=== PATIENT | female | born 1995 | race Caucasian/White ===

== ENCOUNTER → 2018-04-16 13:07 | Outpatient (CLI) | payer MEDICAID, SELFPAY ==
[2018-04-16 15:20] LABS: Chlamydia Trachomatis by PCR POSITIVE (Negative); Neisserai gonorrhoeae by PCR Negative (Negative); Probe Check PASS; Sample Adequacy Control PASS; Specimen Processing Control PASS
== END ==
PROVIDERS: Visit Provider Nurse Practitioner Women's Health
DX: N89.8 Other specified noninflammatory disorders of vagina (principal)
CPT/HCPCS: 87070; 87205; 87491; 87591

== ENCOUNTER → 2018-05-10 12:10 | Outpatient (CLI) | payer MEDICAID, SELFPAY ==
[2018-05-10 16:10] LABS: HIV - WCH Non-Reactive (Nonreactive)
[2018-05-12 20:06] LABS: HCV Quant. RNA PCR HCV Not Detected IU/mL (.)
[2018-05-13 11:33] LABS: HSV 1 IgG < 0.91 index (0.00-0.90)
[2018-05-17 00:18] LABS: Rapid Plasmin Reagin (RPR) NONREACTIVE (NONREACTIVE)
== END ==
PROVIDERS: Visit Provider Nurse Practitioner Women's Health
DX: Z11.3 Encounter for screening for infections with a predominantly sexual mode of transmission (principal)
CPT/HCPCS: 36415; 86592; 86695; 86696; 86703; 87522

== ENCOUNTER → 2018-05-10 18:04 | Outpatient (CLI) | payer MEDICAID, SELFPAY ==
[2018-05-10 20:27] LABS: Chlamydia Trachomatis by PCR Negative (Negative); Neisserai gonorrhoeae by PCR Negative (Negative); Probe Check PASS; Sample Adequacy Control PASS; Specimen Processing Control PASS
== END ==
PROVIDERS: Visit Provider Nurse Practitioner Women's Health
DX: Z11.3 Encounter for screening for infections with a predominantly sexual mode of transmission (principal); N89.8 Other specified noninflammatory disorders of vagina
CPT/HCPCS: 36415; 86592; 86695; 86696; 86703; 87070; 87077; 87205; 87491; 87522; 87591

== ENCOUNTER → 2018-08-29 18:45 | Outpatient (CLI) | payer MEDICAID, SELFPAY ==
[2018-08-29 13:03] VITALS: BMI 25.9
[2018-08-29 20:37] LABS: Chlamydia Trachomatis by PCR Negative (Negative); Neisserai gonorrhoeae by PCR Negative (Negative); Probe Check PASS; Sample Adequacy Control PASS; Specimen Processing Control PASS
== END ==
PROVIDERS: Referring Provider Nurse Practitioner Women's Health; Visit Provider Nurse Practitioner Women's Health
DX: N89.8 Other specified noninflammatory disorders of vagina (principal)
CPT/HCPCS: 87070; 87205; 87491; 87591

== ENCOUNTER 2018-11-22 19:43 | Emergency (ER) | payer MEDICAID, SELFPAY ==
[2018-10-21 14:34] VITALS: BMI 25.9
[2018-11-22 19:44] VITALS: BP 124/66; PULSE 99; RESP 18; TEMP 36.7; O2SAT 99; BMI 26.7
[2018-11-22 20:03] VITALS: TEMP 36.7
--- NOTE | 2018-11-22 20:11 | ED.VISSUMM ---
- ER Visit Summary Date of Service: 11/22/18 Chief Complaint: Right buttock abscess History of Present Illness: The patient is a 23 F no significant past medical history. Patient states her 2-year-old daughter had an MRSA AB only. It was treated with antibiotics. She states the last 4 days she has had a right buttock pain. No she now has an abscess. Fever at home as high as 102. Has had some mild diarrhea. No nausea or vomiting. The only medication she is currently on is control pill. Physical Examination: Well-appearing young female. Vital signs are stable and afebrile. HEENT exam unremarkable. Moist weeks membranes. Neck nontender no lymphadenopathy. Lungs clear to auscultation bilaterally. Heart regular rate and rhythm no murmur. Abdomen soft and nontender. Normal bowel sounds no peritoneal signs. Remedies moves all 4. Neurovascular intact. Calves nontender without edema or cords. Back nontender. Her right upper buttock there is a 3 cm x 1 cm abscess. Tender to palpation. Red. Firm. No surrounding cellulitis. No lymphangitic streaking. No subcu air or crepitance. Test Results: Wound and MRSA culture pending. Emergency Department Course and Treatment: The abscess will be incised and drained. Let will be applied. Subcu lidocaine. She will be treated with Keflex and Bactrim for the abscess. [place] for pain. Given 2 [place] in the ER. She does have a ride home. Procedure note: Right buttock abscess. Let to the area. Subcu lidocaine about 6 cc. 1 inch horizontal incision. Expressed about 1 cc of purulent material plus a small amount of blood. Probed the wound. No large pus pocket. Packed using 2 inches of half-inch gauze. Patient tolerated procedure well. Was instructed to remove the gauze in [address] a dressing. Treatment Plan: Bactrim twice daily for 10 days. Keflex 4 times daily for 10 days. Tylenol Motrin for pain. Follow-up with a local primary care physician. Disposition: Discharge Impression: Acute buttock abscess Incision and drainage by ER This note was generated with [employer] dictation software. It may contain incorrect words, spelling, and punctuation that were not noted in review of the chart prior to signing ED Disposition - Plan for ED Patient: Disposition: Home or Assisted Living Instructions: ED Abscess IandD Prescriptions: Hydrocodone Bitart/Apap 5-325 [[place] 5MG-325MG] 1 tab PO Q4H PRN PRN 2 Days #10 tab PRN Reason: Pain Cephalexin [Keflex] 500 mg PO Q6 10 Days cap Smz/Tmp Ds [Bactrim Ds] 1 tab PO BID #20 tab Referrals: Geoffrey Bustillos MD [STAFF PHYSICIAN] - 5-7 Days Additional Instructions: Hot shower, warm compresses or soak in a bathtub. [place] for more severe pain otherwise Tylenol Motrin. Keflex 1 pill 4 times a day till gone. Bactrim 1 pill twice a day until gone. Follow-up with local primary care physician. Return if doing worse.
--- NOTE | 2018-11-22 20:14 | ED.DCSUM_ITS ---
- ER Visit Summary Date of Service: 11/22/18 Chief Complaint: Right buttock abscess History of Present Illness: The patient is a 23 F no significant past medical history. Patient states her 2-year-old daughter had an MRSA AB only. It was treated with antibiotics. She states the last 4 days she has had a right buttock pain. No she now has an abscess. Fever at home as high as 102. Has had some mild diarrhea. No nausea or vomiting. The only medication she is currently on is control pill. Physical Examination: Well-appearing young female. Vital signs are stable and afebrile. HEENT exam unremarkable. Moist weeks membranes. Neck nontender no lymphadenopathy. Lungs clear to auscultation bilaterally. Heart regular rate and rhythm no murmur. Abdomen soft and nontender. Normal bowel sounds no peritoneal signs. Remedies moves all 4. Neurovascular intact. Calves nontender without edema or cords. Back nontender. Her right upper buttock there is a 3 cm x 1 cm abscess. Tender to palpation. Red. Firm. No surrounding cellulitis. No lymphangitic streaking. No subcu air or crepitance. Test Results: Wound and MRSA culture pending. Emergency Department Course and Treatment: The abscess will be incised and drained. Let will be applied. Subcu lidocaine. She will be treated with Keflex and Bactrim for the abscess. [place] for pain. Given 2 [place] in the ER. She does have a ride home. Procedure note: Right buttock abscess. Let to the area. Subcu lidocaine about 6 cc. 1 inch horizontal incision. Expressed about 1 cc of purulent material plus a small amount of blood. Probed the wound. No large pus pocket. Packed using 2 inches of half-inch gauze. Patient tolerated procedure well. Was instructed to remove the gauze in [address] a dressing. Treatment Plan: Bactrim twice daily for 10 days. Keflex 4 times daily for 10 days. Tylenol Motrin for pain. Follow-up with a local primary care physician. Disposition: Discharge Impression: Acute buttock abscess Incision and drainage by ER This note was generated with [employer] dictation software. It may contain incorrect words, spelling, and punctuation that were not noted in review of the chart prior to signing ED Disposition - Plan for ED Patient: Disposition: Home or Assisted Living Instructions: ED Abscess IandD Prescriptions: Hydrocodone Bitart/Apap 5-325 [[place] 5MG-325MG] 1 tab PO Q4H PRN PRN 2 Days #10 tab PRN Reason: Pain Cephalexin [Keflex] 500 mg PO Q6 10 Days cap Smz/Tmp Ds [Bactrim Ds] 1 tab PO BID #20 tab Referrals: Geoffrey Bustillos MD [STAFF PHYSICIAN] - 5-7 Days Additional Instructions: Hot shower, warm compresses or soak in a bathtub. [place] for more severe pain otherwise Tylenol Motrin. Keflex 1 pill 4 times a day till gone. Bactrim 1 pill twice a day until gone. Follow-up with local primary care physician. Return if doing worse.
[2018-11-22] MEDS: HYDROcodone Bitartrate/Apap 5/325 Tablet PO (20:17)
[2018-11-22] MEDS: Smz/Tmp Ds Tablet 1 TABLET PO (20:17)
[2018-11-22] MEDS: Cephalexin 250 MG Capsule 500 MG PO (20:17)
[2018-11-22] MEDS: Lidocaine/Epi/Tetracaine 50 ML 1 APPLIC TOPICAL (20:18)
[2018-11-22 21:14] VITALS: BP 131/88; PULSE 71; RESP 16; O2SAT 96
[2018-11-22 22:36] LABS: Probe Check PASS; Staph aureus DNA By PCR POSITIVE (Negative)
[2018-11-22 22:38] LABS: M R Staph aureus DNA By PCR POSITIVE (Negative)
--- NOTE | 2018-11-23 03:14 | ED.RN ---
lab called with positive results. Pt positive for MRSA and Staph infection. Dr. Hardy made aware. Patient is on correct medication no need for follow up.
== END 2018-11-22 21:15 | disposition home or self-care (01) ==
PROVIDERS: Emergency Provider Emergency Medicine
DX: L02.31 Cutaneous abscess of buttock (principal); R19.7 Diarrhea, unspecified; Z79.3 Long term (current) use of hormonal contraceptives
CPT/HCPCS: 10060; 87070; 87077; 87186; 87205; 87640; 99284

== ENCOUNTER 2019-01-06 05:46 | Emergency (ER) | payer MEDICAID, SELFPAY ==
[2019-01-06 05:47] VITALS: BP 134/121; PULSE 107; RESP 15; TEMP 36.9; O2SAT 97; BMI 26.6
--- NOTE | 2019-01-06 05:53 | ED.VIS.GEN ---
History of Present Illness Chief Complaint: Suicidal Narrative: Stated that she is going through a divorce with her and got into an argument with him tonight. She has been sad. He was at the house with her. She did not drink alcohol or do illicit drugs. She picked up a knife and cut the inside of her left forearm. She stated she was remorseful. She is not suicidal. She stated that she reacted poorly and does not know why she did it. She has 3 kids at home with her. Tetanus is up-to-date. No other injuries. She is never done this before. She has a counselor at [facility]. She does not have an active psychiatrist but saw in the past and was on Prozac. She was on this for anxiety. She stopped it remotely on her own. She takes no medications. Current severity is moderate. Past Medical History - Allergies and Home Meds Allergies/Adverse Reactions: Allergies amoxicillin [Amoxicillin] Allergy (Verified 01/06/19 05:57) Rash Penicillins Allergy (Verified 01/06/19 05:57) Rash Primary Care Physician: Care Physician,No Primary [Primary Care Provider] - Prior records reviewed: Yes Past Medical History: - - Anxiety Surgical History: noncontributory Lives: With Family Smoking Status: Unknown if ever smoked Alcohol: None Drugs: None Review of Systems General: Denies: Chills, Fever, Sweats Eyes: Denies: Visual changes - bilaterally, Diplopia ENT: Denies: Rhinorrhea, Sore throat Cardiovascular: Denies: Chest pain, Palpitations Respiratory: Denies: Dyspnea, Cough, Dyspnea on exertion Gastrointestinal: Denies: Abdominal pain, Nausea, Vomiting, Diarrhea, Melena, Hematochezia Genitourinary: Denies: Dysuria, Hematuria, Frequency Musculoskeletal: Denies: Back pain, Extremity Pain Skin: Reports: Wounds - See HPI. Denies: Rash Neurological: Denies: Headache, Weakness, Numbness Psych: Reports: - - cut her left wrist on purpose Physical Exam General: Well nourished, Well developed, No Acute Distress Head: Normocephalic, Atraumatic Eyes: Perrl, EOMI ENT: Moist mucous membranes, No rhinorrhea Neck: Supple, Nontender Cardiovascular: Regular rate, Regular rhythm, No murmurs Respiratory: No distress, CTA bilaterally, Chest nontender Abdomen: Soft, Nontender, Nondistended, Normal bowel sounds Back: Nontender, Normal Inspection Extremities: Nontender, No edema Skin: Negative for: Normal color, No rash Neurological: Alert, Oriented x3, Cranial nerves II-XII grossly intact, Normal Strength, Normal Sensation Psychological: Tearful. Negative for: Normal affect, Normal Mood Diagnostic/Tx/Re-eval - Medical Decision Making Work unremarkable. Urine tox still pending. Mental health consulted for her self-inflicted wound. Her wound was washed with hexedine and anesthetized with 4 cc of 1% lidocaine with epinephrine. It was washed with 500 cc of saline. It was closed with 6 simple four-point 0 sutures. Bacitracin was applied and it was dressed. She will be seen by crisis. ED Disposition - Plan for ED Patient: Disposition: [facility] Diagnosis: Laceration, Deliberate self-cutting Referrals: Care Physician,No Primary [Primary Care Provider] -
[2019-01-06 06:40] LABS: Absolute Lymphocyte Count 1.56 X10^3/ul (0.83-4.51); Absolute Neutrophil Count 5.2 X10^3/uL (2.0-7.7); Basophil# 0.02 X10^3/uL; Basophil% 0.3 % (0-1); Eosinophil# 0.09 X10^3/uL; Eosinophils% 1.2 % (0-5); Hematocrit 44.7 % (37-47); Hemoglobin 14.6 g/dl (12.0-15.0); Lymphocyte # 1.56 X10^3/ul (4.0); Lymphocyte % 20.6 % (19-41); Mean Corp Hgb Conc 32.7 g/gl (32-36); Mean Corpuscular Hgb 30.5 pg (27.0-32.0); Mean Corpuscular Volume 93.3 fL (81-99); Mean Platelet Vol. 11.1 fl (6.2-12.0); Monocyte# 0.69 X10^3/uL; Monocyte% 9.1 % (0-10); Neutrophil # 5.21 X10^3/uL (2.7-7.7); Neutrophil % 68.5 % (47-70); Platelet Count 270 K/mm3 (150-450); RBC Distribution Width CV 13.6 % (11.6-14.6); RBC Distribution Width SD 44.9 fl (35.1-43.9); Red Blood Count 4.79 M/mm3 (4.2-5.4); White Blood Count 7.6 K/mm3 (4.4-11.0)
[2019-01-06 06:45] LABS: Alcohol, Blood (Medical)-Serum < 3.0 mg/dL; POSITIVE COUNT NO; POSITIVE DIFFERENTIAL NO; POSITIVE MORPHOLOGY NO
[2019-01-06 06:46] LABS: Anion Gap 7 (5-15); BUN 13 mg/dL (7-18); BUN/Creat Ratio 15.4 RATIO (10-20); Chloride 105 mmol/L (98-107); Creatinine, Serum 0.84 mg/dL (0.55-1.02); EST Glomerular Filtration Rate 88 mL/min (>60); Est Glom Filt Rate - Afr Amer 107 mL/min (>60); Estimated Creatinine Clearance 101.29 ml/min; Glucose 102 mg/dL (74-106); Potassium 3.5 mmol/L (3.5-5.1); Sodium Level 139 mmol/L (136-145)
[2019-01-06 06:52] LABS: Pregnancy, Serum, hCG Quali. NEGATIVE Negative (0-9 Nonpreg)
--- NOTE | 2019-01-06 07:22 | ED.RN ---
MITCH WITH CRISIS IS AWARE THAT PT IS HERE AND NEEDS TO BE EVALUATED. SHE IS NOT SURE WHO IS [employer] TODAY BUT SHE WILL GIVE THEM REPORT AND THEY WILL CALL BEFORE COMING TO THIS FACILITY
[2019-01-06 07:50] LABS: Amphetamine Urine VISTA NEGATIVE (<1000 ng/mL); Barbiturate Urine VISTA NEGATIVE (< 200 ng/mL); Benzodiazepine Urine VISTA NEGATIVE (< 200 ng/mL); Cocaine Urine VISTA NEGATIVE (< 300 ng/mL); Ecstacy Urine VISTA NEGATIVE (< 500 ng/mL); Methadone Urine VISTA NEGATIVE (< 300 ng/mL); PCP Urine VISTA NEGATIVE (< 25 ng/mL); THC Urine VISTA POSITIVE (< 50 ng/mL); Vista UDS pH Range 6
[2019-01-06 09:23] VITALS: RESP 16
--- NOTE | 2019-01-06 09:34 | ED.RN ---
PER JOIE WITH CRISIS; DONTA SHOULD BE HERE IN ABOUT A HALF HOUR TO SEE THIS PT
[2019-01-06 12:02] VITALS: RESP 18
[2019-01-06] MEDS: Acetaminophen 500 MG Tablet 1000 MG PO (12:44)
[2019-01-06 14:55] VITALS: RESP 18
[2019-01-06 15:04] VITALS: RESP 16
[2019-01-06 16:09] VITALS: BP 113/68; PULSE 77; RESP 18; TEMP 36.9; O2SAT 97
== END 2019-01-06 16:05 ==
PROVIDERS: Emergency Provider Emergency Medicine
DX: S51.812A Laceration without foreign body of left forearm, initial encounter (principal); X78.1XXA Intentional self-harm by knife, initial encounter; Y93.9 Activity, unspecified; Y92.9 Unspecified place or not applicable; Y99.9 Unspecified external cause status; Z79.3 Long term (current) use of hormonal contraceptives; Z88.0 Allergy status to penicillin
CPT/HCPCS: 12002; 80048; 80307; 80320; 84703; 85025; 99285; G0480

== ENCOUNTER → 2019-03-21 16:17 | Outpatient (CLI) | payer MEDICAID, SELFPAY ==
[2019-03-21 15:57] VITALS: BMI 26.6
[2019-03-21 17:03] LABS: hCG Titer Quant., Serum 140 mIU/mL (1-3)
[2019-03-21 18:30] LABS: Chlamydia Trachomatis by PCR Negative (Negative); Neisserai gonorrhoeae by PCR Negative (Negative); Probe Check PASS; Sample Adequacy Control PASS; Specimen Processing Control PASS
== END ==
PROVIDERS: Referring Provider Nurse Practitioner Women's Health; Visit Provider Nurse Practitioner Women's Health
DX: Z34.90 Encounter for supervision of normal pregnancy, unspecified, unspecified trimester (principal); Z11.3 Encounter for screening for infections with a predominantly sexual mode of transmission; N76.0 Acute vaginitis
CPT/HCPCS: 36415; 84702; 87070; 87077; 87186; 87205; 87491; 87591

== ENCOUNTER → 2019-03-24 13:14 | Outpatient (CLI) | payer MEDICAID, SELFPAY ==
[2019-03-21 15:57] VITALS: BMI 26.6
[2019-03-24 13:59] LABS: hCG Titer Quant., Serum 85 mIU/mL (1-3)
== END ==
PROVIDERS: Referring Provider Nurse Practitioner Women's Health; Visit Provider Nurse Practitioner Women's Health
DX: N92.6 Irregular menstruation, unspecified (principal)
CPT/HCPCS: 36415; 84702

== ENCOUNTER → 2019-06-10 15:27 | Outpatient (CLI) | payer MEDICAID, SELFPAY ==
[2019-06-10 12:20] VITALS: BMI 26.6
[2019-06-10 19:57] LABS: Chlamydia Trachomatis by PCR Negative (Negative); Neisserai gonorrhoeae by PCR Negative (Negative); Probe Check PASS; Sample Adequacy Control PASS; Specimen Processing Control PASS
== END ==
PROVIDERS: Visit Provider Nurse Practitioner Women's Health
DX: N76.0 Acute vaginitis (principal)
CPT/HCPCS: 87491; 87591

== ENCOUNTER → 2019-06-11 11:38 | Outpatient (CLI) | payer MEDICAID, SELFPAY ==
[2019-06-10 12:20] VITALS: BMI 26.6
[2019-06-11 14:29] LABS: hCG Titer Quant., Serum 1318 mIU/mL (1-3)
== END ==
PROVIDERS: Referring Provider Nurse Practitioner Women's Health; Visit Provider Nurse Practitioner Women's Health
DX: O03.9 Complete or unspecified spontaneous abortion without complication (principal)
CPT/HCPCS: 36415; 84702

== ENCOUNTER 2019-06-30 04:07 | Emergency (ER) | payer MEDICAID, SELFPAY ==
[2019-06-10 12:20] VITALS: BMI 26.6
[2019-06-30 04:08] VITALS: BP 115/76; PULSE 100; RESP 16; TEMP 36.5; O2SAT 99; BMI 26.3
--- NOTE | 2019-06-30 04:14 | ED.DCSUM_ITS ---
History of Present Illness Chief Complaint: Lower Extremity Injury Informant: Patient Narrative: She injured her right foot just prior to arrival. She stated that she tripped when walking down a few steps and sprained her foot. She is having some pain in the outside of her foot. She took ibuprofen. Worse with movement and walking. No previous injury. Relieved with rest. - Past Medical History (1) Influenza A Status: Acute (2) Status: Acute (3) Anxiety Status: Chronic (4) Genital herpes Status: Chronic (5) OCD (obsessive compulsive disorder) Status: Chronic Past Medical History - Allergies and Home Meds Allergies/Adverse Reactions: Allergies amoxicillin [Amoxicillin] Allergy (Verified 06/30/19 04:12) Rash Penicillins Allergy (Verified 06/30/19 04:12) Rash Primary Care Physician: Care Physician,No Primary [Primary Care Provider] - Prior records reviewed: Yes Past Medical History: - - See problem list Surgical History: noncontributory Smoking Status: Unknown if ever smoked Alcohol: None Drugs: None Review of Systems General: Denies: Chills, Fever, Sweats Eyes: Denies: Visual changes - bilaterally, Diplopia ENT: Denies: Rhinorrhea, Sore throat Cardiovascular: Denies: Chest pain, Palpitations Respiratory: Denies: Dyspnea, Cough, Dyspnea on exertion Gastrointestinal: Denies: Abdominal pain, Nausea, Vomiting, Diarrhea, Melena, Hematochezia Genitourinary: Denies: Dysuria, Hematuria, Frequency Musculoskeletal: Reports: Extremity Pain - Pain in the right foot. Denies: Back pain Skin: Denies: Rash, Wounds Neurological: Denies: Headache, Weakness, Numbness Physical Exam Vital Signs/Narrative: Vital Signs Temp Pulse Resp BP Pulse Ox 06/30/19 04:08 97.7 F L 100 16 115/76 99 General: Well nourished, Well developed, No Acute Distress Head: Normocephalic, Atraumatic Eyes: Perr[place], EOMI ENT: Moist mucous membranes, No rhinorrhea Neck: Supple, Nontender Cardiovascular: Regular rate, Regular rhythm, No murmurs Respiratory: No distress, CTA bilaterally, Chest nontender Abdomen: Soft, Nontender, Nondistended, Normal bowel sounds Back: Nontender, Normal Inspection Extremities: No edema, Tenderness - Numbness in the right foot over the proximal third and fourth metatarsals. Mild soft tissue swelling isolated to this area. No tenderness over the fifth metatarsal base. Negative for: Nontender Skin: Normal color, No rash Neurological: Alert, Oriented x3, Cranial nerves II-XII grossly intact, Normal Strength, Normal Sensation Psychological: Normal affect, Normal Mood Diagnostic/Tx/Re-eval - Medical Decision Making Patient given ice pack. Just took ibuprofen prior to coming in. X-ray of the foot obtained. Today shows a proximal fifth metatarsal fracture nondisplaced. Patient placed in a walking boot and given crutches. She is not in a place weight on this. Given an oxycodone tablet. Patient will be given a short course of Percocet for home. She will rest and ice and follow-up with orthopedics ED Disposition - Plan for ED Patient: Disposition: [facility] Diagnosis: Fracture of fifth metatarsal bone of right foot Instructions: FRACTURE, Foot Prescriptions: Oxycodone HCl/Acetaminophen [Percocet 5/325] 1 tab PO Q6H PRN PRN 3 Days #12 tab PRN Reason: Pain Prescription Printed Referrals: Care Physician,No Primary [Primary Care Provider] - Grzegorz Pitt DO [STAFF PHYSICIAN] -
--- NOTE | 2019-06-30 04:14 | RAD_ITS ---
STUDY: X-RAY - RIGHT FOOT CLINICAL: Female, 24 years old. Pain TECHNIQUE: There view(s) of the foot. COMPARISON: None. FINDINGS: Normal talus, calcaneus, and tarsal bones. Normal visualized subtalar, talonavicular, calcaneocuboid, tarsal and tarsometatarsal articulations. There is a nondisplaced fracture of the base of the fifth metatarsal bone. Normal metatarsophalangeal joint of the great toe. Normal tibial and fibular sesamoid bones. Normal interphalangeal joint of the great toe. Normal phalanges of the great toe. Normal second through fifth metatarsophalangeal joints. Normal interphalangeal joints and phalanges of the lesser toes. The soft tissue structures are unremarkable. RAD/Foot min 3 Views IMPRESSION: Fracture of the base of the fifth metatarsal bone. Electronically Signed: Parth Morales MD at 4:31 EDT , Service support ,
[2019-06-30 04:53] VITALS: BP 115/76; PULSE 100; RESP 15; O2SAT 99
[2019-06-30] MEDS: oxyCODONE 5 MG Tablet PO (05:14)
== END 2019-06-30 05:26 | disposition home or self-care (01) ==
PROVIDERS: Emergency Provider Emergency Medicine
DX: O9A.219 Injury, poisoning and certain other consequences of external causes complicating pregnancy, unspecified trimester (principal); S92.351A Displaced fracture of fifth metatarsal bone, right foot, initial encounter for closed fracture; W10.9XXA Fall (on) (from) unspecified stairs and steps, initial encounter; Y93.01 Activity, walking, marching and hiking; Y92.9 Unspecified place or not applicable; Y99.9 Unspecified external cause status; Z3A.00 Weeks of gestation of pregnancy not specified
CPT/HCPCS: 73630; 99285

== ENCOUNTER 2019-07-06 10:51 | Emergency (ER) | payer MEDICAID, SELFPAY ==
[2019-07-06 10:53] VITALS: BP 117/55; PULSE 81; RESP 16; TEMP 36.9; O2SAT 97; BMI 24.3
--- NOTE | 2019-07-06 11:29 | RAD_ITS ---
STUDY: X-RAY - RIGHT FOOT CLINICAL: Female, 24 years old. Status post fall. History of recent fracture. TECHNIQUE: 3 view(s) of the foot. COMPARISON: 06/30/2019. FINDINGS: Normal talus, calcaneus, and tarsal bones. The foot is in cast obscuring the soft tissues and bony details. Normal visualized subtalar, talonavicular, calcaneocuboid, tarsal and tarsometatarsal articulations. There again is fracture of the base of the fifth metatarsal. There is more resorption about the fracture site. Normal metatarsophalangeal joint of the great toe. Normal tibial and fibular sesamoid bones. Normal interphalangeal joint of the great toe. Normal phalanges of the great toe. Normal second through fifth metatarsophalangeal joints. Normal interphalangeal joints and phalanges of the lesser toes. The soft tissue structures are unremarkable. RAD/Foot min 3 Views IMPRESSION: The foot is in cast obscuring the soft tissue details. Fracture of the base of the fifth metatarsal. No other definite fractures are seen. Electronically Signed: Ezra Sarmiento MD at 11:56 EDT Tel , Service support ,
[2019-07-06] MEDS: oxyCODONE 5 MG Tablet PO (11:36)
--- NOTE | 2019-07-06 12:09 | ED.VISSUMM ---
- ER Visit Summary Date of Service: 07/06/19 Chief Complaint: Right foot pain History of Present Illness: The patient is a 24 F presenting with right foot pain. Patient states she broke her foot a week ago. She is in a cast. She was using crutches going down the stairs and fell. She did not hit her head or lose consciousness. She complains of pain to the lateral aspect of her right foot. She is in the process of switching orthopedic surgeons as the initial orthopedic surgeon did not take her insurance. She denies other injuries. Physical Examination: Vitals are stable. Patient is afebrile. Alert no acute distress. HEENT exam is unremarkable. Neck is nontender Lungs are clear and equal bilaterally. Heart is regular rate and rhythm. Abdomen is soft nontender nondistended. Extremities right lower extremity cast. Normal cap refill. Skin is warm and dry. No focal neurologic deficit. Remainder of exam is unremarkable. Emergency Department Course and Treatment: She was given OxyIR x1. Right foot x-ray shows the foot is in cast obscuring the soft tissue details. Fracture of the base of the fifth metatarsal. No other definite fractures are seen. Fracture appears similar to previous. She is given short course of Percocet. Advised to follow-up with her new orthopedic surgeon. Advised return to ED for worsening complaints. Disposition: Discharge home Impression: Right fifth metatarsal fracture This note was generated with [employer] dictation software. It may contain incorrect words, spelling, and punctuation that were not noted in review of the chart prior to signing ED Disposition - Plan for ED Patient: Referrals: Care Physician,No Primary [Primary Care Provider] -
--- NOTE | 2019-07-06 12:11 | ED.DEP ---
ED Disposition - Plan for ED Patient: Instructions: FRACTURE, Foot Prescriptions: Oxycodone HCl/Acetaminophen [Percocet 5/325] 1 tablet PO Q6H PRN PRN 3 Days #12 tablet PRN Reason: Pain Referrals: Artemio Paulino DPM [STAFF PHYSICIAN] - Ridge Mai DO [STAFF PHYSICIAN] -
== END 2019-07-06 12:23 | disposition home or self-care (01) ==
LOC: ED 11:33
PROVIDERS: Emergency Provider Emergency Medicine
DX: S92.351A Displaced fracture of fifth metatarsal bone, right foot, initial encounter for closed fracture (principal); W10.9XXA Fall (on) (from) unspecified stairs and steps, initial encounter; Y93.9 Activity, unspecified; Y92.9 Unspecified place or not applicable; Y99.9 Unspecified external cause status
CPT/HCPCS: 73630; 99283

== ENCOUNTER → 2019-07-08 15:15 | Outpatient (CLI) | payer MEDICAID, SELFPAY ==
[2019-07-08 11:38] VITALS: BMI 24.3
== END ==
PROVIDERS: Referring Provider Obstetrics & Gynecology; Visit Provider Obstetrics & Gynecology
DX: R30.0 Dysuria (principal)
CPT/HCPCS: 87086; 87088; 87186

== ENCOUNTER → 2019-07-09 10:22 | Outpatient (CLI) | payer MEDICAID, SELFPAY ==
[2019-07-06 10:53] VITALS: BMI 24.3
[2019-07-08 11:38] VITALS: BMI 24.3
[2019-07-09 12:27] LABS: Absolute Neutrophil Count 3.2 X10^3/uL (2.0-7.7); Basophil# 0.02 X10^3/uL; Basophil% 0.4 % (0-1); Eosinophil# 0.12 X10^3/uL; Eosinophils% 2.2 % (0-5); Hematocrit 37.3 % (37-47); Hemoglobin 12.2 g/dL (12.0-15.0); Lymphocyte % 29.4 % (19-41); Mean Corp Hgb Conc 32.7 g/dL (32-36); Mean Corpuscular Hgb 30.7 pg (27.0-32.0); Mean Platelet Vol. 11.4 fl (6.2-12.0); Monocyte# 0.55 X10^3/uL; Monocyte% 10.1 % (0-10); NRBC Flagged by Analyzer 0 % (0-5); Neutrophil # 3.15 X10^3/uL (2.7-7.7); Neutrophil % 57.7 % (47-70); Platelet Count 240 K/mm3 (150-450); RBC Distribution Width CV 11.6 % (11.6-14.6); RBC Distribution Width SD 40.6 fl (35.1-43.9); Red Blood Count 3.97 M/mm3 (4.2-5.4); White Blood Count 5.5 K/mm3 (4.4-11.0)
[2019-07-09 12:54] LABS: AST(SGOT) 12 U/L (15-37); Alanine Aminotransfer ALT/SGPT 18 U/L (13-56); Albumin, Serum 3.8 g/dL (3.2-5.0); Alkaline Phosphatase 72 U/L (45-117); Anion Gap 7 (5-15); BUN 11 mg/dL (7-18); BUN/Creat Ratio 16.8 RATIO (10-20); Calcium,Total 8.8 mg/dL (8.5-10.1); Chloride 104 mmol/L (98-107); Creatinine, Serum 0.65 mg/dL (0.55-1.02); EST Glomerular Filtration Rate 118 mL/min (>60); Est Glom Filt Rate - Afr Amer 143 mL/min (>60); Globulin 3.8 g/dL (2.2-4.2); Glucose 77 mg/dL (74-106); Potassium 3.9 mmol/L (3.5-5.1); Protein, Total 7.6 g/dL (6.4-8.2); Sodium Level 140 mmol/L (136-145)
[2019-07-09 12:57] LABS: Vitamin D,25 Hydroxy 44.1 ng/mL (29.95-100.01)
== END ==
PROVIDERS: Visit Provider Podiatrist
DX: E55.9 Vitamin D deficiency, unspecified (principal)
CPT/HCPCS: 36415; 80053; 82306; 85025

== ENCOUNTER 2019-07-11 08:10 | Day surgery (SDC) | payer MEDICAID, SELFPAY ==
[2019-07-08 11:13] VITALS: BMI 24.3
[2019-07-08 11:38] VITALS: BMI 24.3
[2019-07-11] VITALS (10 sets, daily range): BP systolic 80–100; BP diastolic 48–70; PULSE 54–66; RESP 14–16; TEMP 36.3–37.2; O2SAT 95–100; BMI 25.0
[2019-07-11 08:30] LABS: Internal QC Validated? YES +Cl - CLEAR BKGD
[2019-07-11 08:31] LABS: Pregnancy, Urine Positive Negative
[2019-07-11] MEDS: Lactated Ringers 1,000 ML 75 ML IV ×3 (09:16→12:48)
--- NOTE | 2019-07-11 10:34 | RAD_ITS ---
STUDY: X-RAY - RIGHT FOOT CLINICAL: Female, 24 years old. Fracture TECHNIQUE: 5 intraoperative view(s) of the foot. COMPARISON: None. FINDINGS: 5 intraoperative views of the right fifth metatarsal were performed as the patient has undergone open reduction internal fixation of a fracture. Follow-up studies recommended to ensure complete osseous union. No intraoperative complication noted. RAD/Foot min 3 Views IMPRESSION: ORIF of a proximal fifth metatarsal fracture Electronically Signed: Foster Garay MD at 12:00 EDT , Service support ,
[2019-07-11] MEDS: Bupivacaine Mpf 0.5% 30 ML VIAL (11:00)
--- NOTE | 2019-07-11 11:21 | PCM.DC.POD ---
Discharge Diet: No Restrictions Discharge Activity: May Not Drive, May not drive while taking narcotic pain medications., May Not Shower - unless cast cover is in place, Use Crutches Weight Bearing Status: No weight bearing Keep extremity elevated above heart level: Right Leg Call your doctor if your incision/area has: Continuous Slow Oozing, Sudden Increased Bleeding, Increased Pain/ Swelling, Increased Redness, Foul Smelling Discharge, Swelling at the incision site Call your doctor if you observe: Fever of 101 or Higher, Numbness or Tingling, Inability to urinate, Inability to have a bowel movement, Shortness of breath, Chest pain, Prolonged hiccoughing, Increased palpitations (irregular heartbeat), Calf discomfort, Uncontrolled pain Cleanse incision/area with: Keep Dressing Clean & Dry Allergies/Adverse Reactions: Allergies amoxicillin [Amoxicillin] Allergy (Verified 07/10/19 08:38) Rash Penicillins Allergy (Verified 07/10/19 08:38) Rash Medications to take at Discharge Oxycodone HCl/Acetaminophen [Percocet 5/325] 1 tab PO Q6H PRN PRN 3 Days #12 tab 07/06/19 sulfamethoxazole 800 mg-trimethoprim 160 mg tablet 1 tab PO DAILY #6 tab 07/08/19 nitrofurantoin monohydrate/macrocrystals 100 mg capsule 1 cap PO Q12H 7 Days #14 cap 07/10/19 Primary Care Physician: Care Physician,No Primary [Primary Care Provider] - Test Results: Test results from this visit will be discussed in further detail at your follow-up appointment, if applicable. Please Follow Up With: Danielle Lopez DPM When: 1 week at [facility]. Call [phone] Proposed Discharge Date: 07/11/19
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
--- NOTE | 2019-07-11 11:47 | RAD_ITS ---
STUDY: X-RAY - RIGHT FOOT CLINICAL: Female, 24 years old. Fracture TECHNIQUE: 3 view(s) of the foot. COMPARISON: None. FINDINGS: Patient is postop from ORIF of a fifth metatarsal fracture. Threaded screw has been placed through the fracture of the base of the fifth metacarpal. Alignment the fracture site is anatomic. No plain film evidence of postoperative complication, follow-up recommended to assure complete osseous union RAD/Foot min 3 Views IMPRESSION: Status post ORIF of a fracture at the base of the fifth metatarsal. Alignment is anatomic after threaded screw placement. No postoperative complications noted Electronically Signed: Foster Garay MD at 12:45 EDT , Service support ,
[2019-07-11] MEDS: Acetaminophen 325 MG Tablet PO (13:10)
[2019-07-11] MEDS: oxyCODONE 5 MG Tablet PO (13:10)
== END 2019-07-11 13:42 | disposition home or self-care (01) ==
LOC: SDC 08:11 → AC 08:12
PROVIDERS: Anesthesiology; Referring Provider Podiatrist; Visit Provider Podiatrist
PROC: (CPT 28485; principal; 2019-07-11 09:30)
DX: S92.351A Displaced fracture of fifth metatarsal bone, right foot, initial encounter for closed fracture (principal); N39.0 Urinary tract infection, site not specified; Z79.2 Long term (current) use of antibiotics; W18.40XA Slipping, tripping and stumbling without falling, unspecified, initial encounter; Y93.01 Activity, walking, marching and hiking; Y92.89 Other specified places as the place of occurrence of the external cause; Y99.8 Other external cause status
CPT/HCPCS: 01480; 28485; 73630; 76000; 81025; C1713; J7120; J2405

== ENCOUNTER 2019-07-22 09:22 | Day surgery (SDC) | payer MEDICAID, SELFPAY ==
[2019-07-21 08:22] VITALS: BMI 25.0
[2019-07-22] VITALS (13 sets, daily range): BP systolic 96–113; BP diastolic 49–64; PULSE 50–95; RESP 16–18; TEMP 36.3–36.8; O2SAT 95–100; BMI 25.2
--- NOTE | 2019-07-22 | POC_PTH ---
PATIENT: RACHELLE JACKSON LOC: [facility] [place] U#:[id number] AGE/SX: 24/F ROOM: RE07/22/[address]: Dr. Agustina Sinclair MD : [id number] BED: DIS: 07/22/2019 SPEC #: [id number] RECD: 07/22/19 14:16 STATUS: MILAN ALONZO #: [id number] PASCUAL: 07/22/19 00:[address]: Agustina Sinclair DEPT: SURGICAL PATHOLOGY RECD BY: Wayne Ponce ENTERED: 07/22/19 14:17 SP TYPE: PROD CONC OTHR DR: No Primary Care Phys Tissues: Product of conception, NOS Procedures: Surgery Specimen Level IV HEADER OPERATION: Dilation and curettage, suction PRE-OP DIAGNOSIS: Missed TISSUE SUBMITTED: Products of conception MICROSCOPIC DIAGNOSIS Endometrium, curettage: Chorionic villi, decidualized stroma and trophoblastic cells consistent with products of conception. AM:roc 07/23/19 MICROSCOPIC DESCRIPTION Slides are reviewed. GROSS DESCRIPTION Received in fixative is one container labeled with the patient's name and designated products of conception. The specimen consists of multiple pieces of pink-red soft tissue that in aggregate measure 6 x 6 x 2 cm. tissue is not identified. Machine Rope Maker tissue is submitted in two cassettes. / SJ:roc 07/22/19 TC:5 CPT: 05512
[2019-07-22] MEDS: Lactated Ringers 1,000 ML 125 ML IV ×2 (07:00→13:08)
[2019-07-22] MEDS: Doxycycline 100 MG CAPSULE PO (10:10)
[2019-07-22 10:39] LABS: Hematocrit 33.9 % (37-47); Hemoglobin 11.4 g/dL (12.0-15.0); Mean Corp Hgb Conc 33.6 g/dL (32-36); Mean Corpuscular Hgb 30.9 pg (27.0-32.0); Mean Corpuscular Volume 91.9 fL (81-99); Mean Platelet Vol. 10.6 fl (6.2-12.0); Platelet Count 223 K/mm3 (150-450); RBC Distribution Width CV 11.6 % (11.6-14.6); RBC Distribution Width SD 39.2 fl (35.1-43.9); Red Blood Count 3.69 M/mm3 (4.2-5.4); White Blood Count 4.6 K/mm3 (4.4-11.0)
--- NOTE | 2019-07-22 12:25 | HP.PCM_ITS ---
- Problem List (1) Missed with demise before 20 completed weeks of gestation Status: Acute Comment: s/p cytotec, plan suction d and c if last dose today doesn't complete SAB History and Physical Date of Admission: 07/22/19 Intake Vital Signs 07/21/19 Body Mass Index (BMI) 25.0 07/21/19 Height 5 ft 8 in 07/21/19 Blood Pressure 126/72 H 07/21/19 Body Mass Index (BMI) 25.0 Intake Visit Reasons: Miscarriage f/u, sched possible D&C Chief Complaint: Follow Up SAB, Rescan Housing Property Manager Required: No Is patient in pain?: No Allergies amoxicillin [Amoxicillin] Allergy (Verified 07/21/19 08:21) Rash Penicillins Allergy (Verified 07/21/19 08:21) Rash Medications etonogestrel 68 mg subdermal implant 1 implant SUBDERMAL ONCE 07/15/19 [History Confirmed 07/15/19] misoprostol 200 mcg tablet 800 mcg PO .complex #4 tab 07/21/19 [Rx Confirmed 07/21/19] oxycodone-acetaminophen 5 mg-325 mg tablet 1 tab PO Q4H PRN 4 Days #20 tab 07/21/19 [Rx Confirmed 07/21/19] Is last menstrual period known: No Post menopausal: No Patient : No : No PFSH Medical History Genital herpes (Chronic) OCD (obsessive compulsive disorder) (Chronic) Anxiety (Chronic) Social History (Updated 07/21/19 @ 10:47 by Agustina Sinclair MD) Smoking Status: Former smoker alcohol intake: current details: social substance use type: does not use seatbelt use: always do you feel safe at home: Yes additional social history: Spouse Wes HPI Miscarriage f/u, sched possible D&C: Details: RACHELLE JACKSON is a 24 year old who presents for fu of miscarriage. she has barely had any bleeding despite takin ghte cytotec. she is still recovering from recent foot surgery. Female Reproductive History Menopausal Symptoms: No night sweats Pregancy History 6 Elective abortions Hx Para 3 Spontaneous abortions Hx # Term Pregnancies Ectopic pregnancies Hx # Pregnancies Multiple births # of living children Past Pregnancies Del. Date Name GA/Weeks Outcome Route Bth Weight Infant Gen Labor Lgth Anesthesia Del Locatn Provider FOB Unknown 2013 [facility] Unknown 2016 [facility] [place] Unknown 2017 [facility] Dr Goyal ROS Const Constitutional: Denies fatigue, night sweats, weight gain or weight loss ENT ENT: Reports system reviewed and no additional complaints, except as docu Cardio Card: Denies chest pain Resp Resp: Denies cough or dyspnea GI GI: Reports as per HPI; denies abdominal pain, constipation, nausea or vomiting : Denies nipple discharge, urinary frequency, urinary incontinence, urinary hesitancy, urinary urgency, vaginal discharge, vaginal dryness, vaginal odor or vaginal itching Musc Musc: Denies joint pain, back pain or muscle weakness Skin Skin/Breast: Denies hair loss, change in hair, dry skin, breast lump, breast pain, breast skin changes or nipple discharge Neuro Neuro: Reports system reviewed and no additional complaints, except as docu Psych Psych: Reports system reviewed and no additional complaints, except as docu Endo Endo: Denies cold intolerance, excessive sweating, heat intolerance or increased thirst Tom/Lymph Hematologic/Lymphatic: Denies easy bleeding, Denies easy bruising, Denies enlarged lymph nodes Exam Const General: cooperative, healthy appearing, comfortable, no acute distress, well developed Orientation: alert [facility] Head: normal to inspection, normocephalic Ears: hearing grossly normal bilaterally, external ears normal Nose: external nose normal, nares normal Face and sinus: normal facial exam Neck Neck: normal visual inspection, no lymphadenopathy Thyroid: thyroid normal Chest Chest palpation & inspection: normal inspection of the chest Resp Effort & Inspection: normal respiratory effort Auscultation: clear to auscultation bilaterally Cardio Rate: regular rate Rhythm: regular rhythm Heart Sounds: S1 normal, S2 normal GI Inspection: normal to inspection, non-distended Palpation: soft, no hepatosplenomegaly Neuro General: alert, awake, moves all extremities, no focal motor deficits Motor: muscle tone normal throughout Psych Appearance: grossly normal Mental Status: mental status grossly normal Affect: normal affect Speech and Movement: speech and movement normal Assessment & Plan Problems 1. Missed with demise before 20 completed weeks of gestation O02.1 s/p cytotec, plan suction d and c if last dose today doesn't complete SAB Plan Problem list updated and treatment plans were reviewed with the patient and relevant educational handouts given. See problem list details for specific plan information. Medications New: misoprostol (Cytotec) 800 mcg (4 x 200 mcg) PO .complex 4 tabs 1RF oxycodone-acetaminophen 5-325 mg (Percocet) 1 tab PO Q4H 4 days PRN 20 tabs 0RF O02.1 Coding Level of Care Code Off vis,est,level 4 Diagnoses Missed with demise before 20 completed weeks of gestation O02.1 UPDATE- I have seen the patient and performed any clinically relevant updates to the history and physical exam. Agustina Sinclair MD
--- NOTE | 2019-07-22 12:25 | PCM.OPRPT ---
Problem List (1) Missed with demise before 20 completed weeks of gestation Status: Acute Comment: s/p cytotec, plan suction d and c if last dose today doesn't complete SAB Report of Operation Date of Procedure: 07/22/19 Pre-Operative Diagnosis: missed ab Post-Operative Diagnosis: same Surgery/Procedure Performed:: suciton d and c Description of Surgical Findings:: 9 week missed ab Type of Anesthesia:: Local MAC Special Medications: toradol Specimen's removed: poc Drains: none Estimated Blood Loss (mL): 100 Fluids Replaced: crystalloid Description of Procedure: Patient was taken to the operating room and placed under MAC local anesthesia. She was prepped and draped in the normal sterile fashion the dorsal lithotomy position. Bladder was drained of clear urine and anterior lip of the cervix was grasped and the uterus sounded to 9 cm. Cervix was progressively dilated to allow passage of a 8 and 9 mm suction curette. Progressive passes were made removing the retained products of conception without complication. Sharp curettage confirmed complete removal of the retained products. All instruments were removed from the vagina and excellent hemostasis was noted and the patient was taken to recovery in stable condition. Grafts/Implants Used: none - Complications none - Admit VTE Documentation VTE Present on Admission: No
--- NOTE | 2019-07-22 12:28 | DCINST_ITS ---
Discharge Diet: No Restrictions Discharge Activity: Return to Normal Activity, May Shower, May Take a Tub Bath Allergies/Adverse Reactions: Allergies amoxicillin [Amoxicillin] Allergy (Verified 07/22/19 10:12) Rash Penicillins Allergy (Verified 07/22/19 10:12) Rash Medications to take at Discharge etonogestrel 68 mg subdermal implant 1 implant SUBDERMAL ONCE 07/15/19 misoprostol 200 mcg tablet 800 mcg PO .complex #4 tab 07/21/19 oxycodone-acetaminophen 5 mg-325 mg tablet 1 tab PO Q4H PRN 4 Days #20 tab 07/21/19 Primary Care Physician: Care Physician,No Primary [Primary Care Provider] - Test Results: Test results from this visit will be discussed in further detail at your follow- up appointment, if applicable. Please Follow Up With: Agustina Sinclair MD - [phone]
== END 2019-07-22 15:17 | disposition home or self-care (01) ==
LOC: SDC 09:23 → AC 09:24
PROVIDERS: Referring Provider Obstetrics & Gynecology; Visit Provider Obstetrics & Gynecology
PROC: (CPT 59820; principal; 2019-07-22 10:50)
DX: O02.1 Missed abortion (principal); B00.9 Herpesviral infection, unspecified; Z88.0 Allergy status to penicillin; Z87.891 Personal history of nicotine dependence
CPT/HCPCS: 59820; 36415; 85027; 86850; 86900; 86901; 88305; 90384; J7120; J2405; J2790

== ENCOUNTER 2019-10-31 12:56 | Emergency (ER) | payer MEDICAID, SELFPAY ==
[2019-07-22 10:13] VITALS: BMI 25.2
[2019-10-31 12:57] VITALS: BP 115/93; PULSE 85; RESP 16; TEMP 36.1; O2SAT 99; BMI 25.8
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
--- NOTE | 2019-10-31 13:22 | RAD_ITS ---
STUDY: X-RAY - RIGHT FOOT CLINICAL: Female, 24 years old. Fell yesterday; continued pain TECHNIQUE: 3 view(s) of the foot. COMPARISON: Comparison is made with prior study dated July 11, 2019. FINDINGS: Normal talus, calcaneus, and tarsal bones. Normal visualized subtalar, talonavicular, calcaneocuboid, tarsal and tarsometatarsal articulations. Metallic screw is seen at the base of the fifth metatarsal. This is unchanged. Normal metatarsophalangeal joint of the great toe. Normal tibial and fibular sesamoid bones. Normal interphalangeal joint of the great toe. Normal phalanges of the great toe. Normal second through fifth metatarsophalangeal joints. Normal interphalangeal joints and phalanges of the lesser toes. The soft tissue structures are unremarkable. RAD/Foot min 3 Views IMPRESSION: No acute abnormality is seen. Electronically Signed: Leandro Corrigan, at 13:41 EST , Service support ,
[2019-10-31] MEDS: HYDROcodone Bitartrate/Apap 5/325 Tablet PO (13:49)
== END 2019-10-31 14:20 | disposition home or self-care (01) ==
PROVIDERS: Emergency Provider Emergency Medicine; PCP Family Medicine; Referring Provider Family Medicine
DX: S93.601A Unspecified sprain of right foot, initial encounter (principal); W19.XXXA Unspecified fall, initial encounter; Y93.89 Activity, other specified; F42.9 Obsessive-compulsive disorder, unspecified; F41.9 Anxiety disorder, unspecified
CPT/HCPCS: 73630; 99283

== ENCOUNTER → 2020-07-28 15:32 | Outpatient (CLI) | payer MEDICAID, SELFPAY ==
[2020-05-26 10:03] VITALS: BMI 25.8
[2020-07-29 11:47] LABS: HIV - WCH Non-Reactive (Nonreactive); Hepatitis C Antibody Non-Reactive (Nonreactive)
[2020-07-31 12:07] LABS: HCV Quant. RNA PCR HCV Not Detected IU/mL (.)
[2020-08-02 18:07] LABS: HIV-1 RNA by PCR, Quant. < 20 copies/mL (.)
== END ==
PROVIDERS: PCP Family Medicine; Visit Provider Family Medicine
DX: T14.90XA Injury, unspecified, initial encounter (principal); W46.1XXA Contact with contaminated hypodermic needle, initial encounter
CPT/HCPCS: 36415; 86703; 86803; 87522; 87536

== ENCOUNTER → 2020-09-21 13:06 | Outpatient (CLI) | payer MEDICAID, SELFPAY ==
[2020-05-26 10:03] VITALS: BMI 25.8
[2020-09-21 14:15] LABS: hCG Titer Quant., Serum 9361 mIU/mL (1-3)
== END ==
PROVIDERS: PCP Family Medicine; Referring Provider Obstetrics & Gynecology; Visit Provider Obstetrics & Gynecology
DX: O26.899 Other specified pregnancy related conditions, unspecified trimester (principal); R10.2 Pelvic and perineal pain; Z3A.00 Weeks of gestation of pregnancy not specified
CPT/HCPCS: 36415; 84702; 86850; 86900; 86901

== ENCOUNTER → 2020-09-22 18:31 | Outpatient (CLI) | payer MEDICAID, SELFPAY ==
[2020-09-21 15:01] VITALS: BMI 25.8
[2020-09-22 13:16] VITALS: BMI 28.5
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
== END ==
PROVIDERS: PCP Family Medicine; Referring Provider Obstetrics & Gynecology; Visit Provider Obstetrics & Gynecology
DX: O20.0 Threatened abortion (principal); Z3A.00 Weeks of gestation of pregnancy not specified
CPT/HCPCS: 76801

== ENCOUNTER → 2020-10-18 | Outpatient (CLI) | payer MEDICAID, SELFPAY ==
[2020-10-18 08:03] VITALS: BMI 27.6
[2020-10-18 14:12] LABS: Amphetamine Urine VISTA NEGATIVE (<1000 ng/mL); Barbiturate Urine VISTA NEGATIVE (< 200 ng/mL); Benzodiazepine Urine VISTA NEGATIVE (< 200 ng/mL); Cocaine Urine VISTA NEGATIVE (< 300 ng/mL); Ecstacy Urine VISTA NEGATIVE (< 500 ng/mL); Methadone Urine VISTA NEGATIVE (< 300 ng/mL); PCP Urine VISTA NEGATIVE (< 25 ng/mL); THC Urine VISTA POSITIVE (< 50 ng/mL); Vista UDS pH Range 6
[2020-10-21 20:42] LABS: HPV Reflexed? YES, CHARGE PATIENT
== END | disposition home or self-care (01) ==
LOC: LABSPEC 12:50
PROVIDERS: PCP Family Medicine; Referring Provider Obstetrics & Gynecology; Visit Provider Obstetrics & Gynecology
DX: O09.90 Supervision of high risk pregnancy, unspecified, unspecified trimester (principal); O26.899 Other specified pregnancy related conditions, unspecified trimester; N89.8 Other specified noninflammatory disorders of vagina; Z3A.00 Weeks of gestation of pregnancy not specified; Z12.4 Encounter for screening for malignant neoplasm of cervix
CPT/HCPCS: 80307; 87070; 87086; 87088; 87205; 87491; 87591; 87624; 88142

== ENCOUNTER → 2020-10-28 08:38 | Outpatient (CLI) | payer MEDICAID, SELFPAY ==
[2020-10-18 08:03] VITALS: BMI 27.6
[2020-10-28 09:06] LABS: Absolute Lymphocyte Count 1.16 X10^3/uL (0.83-4.51); Absolute Neutrophil Count 4.5 X10^3/uL (2.0-7.7); Basophil# 0.01 X10^3/uL; Basophil% 0.2 % (0-1); Eosinophil# 0.08 X10^3/uL; Eosinophils% 1.3 % (0-5); Hematocrit 35.7 % (37-47); Hemoglobin 12.2 g/dL (12.0-15.0); Lymphocyte # 1.16 X10^3/ul (4.0); Lymphocyte % 18.9 % (19-41); Mean Corp Hgb Conc 34.2 g/dL (32-36); Mean Corpuscular Hgb 30.3 pg (27.0-32.0); Mean Corpuscular Volume 88.8 fL (81-99); Mean Platelet Vol. 10.9 fl (6.2-12.0); Monocyte# 0.39 X10^3/uL; Monocyte% 6.3 % (0-10); NRBC Flagged by Analyzer 0 % (0-5); Neutrophil # 4.51 X10^3/uL (2.7-7.7); Neutrophil % 73.3 % (47-70); Platelet Count 278 K/mm3 (150-450); RBC Distribution Width CV 11.6 % (11.6-14.6); RBC Distribution Width SD 37.2 fl (35.1-43.9); Red Blood Count 4.02 M/mm3 (4.2-5.4); White Blood Count 6.2 K/mm3 (4.4-11.0)
[2020-10-28 10:13] LABS: HIV - WCH Non-Reactive (Nonreactive); Hepatitis B Surface Antigen Non-Reactive (Nonreactive); Hepatitis C Antibody Non-Reactive (Nonreactive); Rubella IgG Reactive (Nonreactive)
[2020-10-30 20:08] LABS: HCV Quant. RNA PCR HCV Not Detected IU/mL (.)
[2020-11-04 03:02] LABS: Rapid Plasmin Reagin (RPR) NONREACTIVE (NONREACTIVE)
== END ==
PROVIDERS: Obstetrics & Gynecology; PCP Family Medicine; Referring Provider Obstetrics & Gynecology; Visit Provider Obstetrics & Gynecology
DX: O09.90 Supervision of high risk pregnancy, unspecified, unspecified trimester (principal); Z3A.00 Weeks of gestation of pregnancy not specified; Z31.430 Encounter of female for testing for genetic disease carrier status for procreative management
CPT/HCPCS: 36415; 85025; 86592; 86703; 86762; 86803; 86850; 86870; 86900; 86901; 87340; 87522

== ENCOUNTER → 2020-11-15 15:52 | Outpatient (CLI) | payer MEDICAID, SELFPAY ==
[2020-10-18 08:03] VITALS: BMI 27.6
== END ==
PROVIDERS: PCP Family Medicine; Referring Provider Obstetrics & Gynecology; Visit Provider Obstetrics & Gynecology
DX: O26.899 Other specified pregnancy related conditions, unspecified trimester (principal); Z3A.00 Weeks of gestation of pregnancy not specified; Z67.91 Unspecified blood type, Rh negative
CPT/HCPCS: 86850; 86870; 86900; 86901

== ENCOUNTER → 2021-02-23 10:50 | Outpatient (CLI) | payer MEDICAID, SELFPAY ==
[2021-02-07 11:44] VITALS: BMI 29.9
[2021-02-23 11:17] LABS: Absolute Lymphocyte Count 1.46 X10^3/uL (0.83-4.51); Basophil# 0.03 X10^3/uL; Basophil% 0.3 % (0-1); Eosinophil# 0.09 X10^3/uL; Eosinophils% 0.8 % (0-5); Hemoglobin 12.4 g/dL (12.0-15.0); Lymphocyte # 1.46 X10^3/ul (0.83-4.51); Lymphocyte % 12.9 % (19-41); Mean Corp Hgb Conc 33.5 g/dL (32-36); Mean Corpuscular Hgb 31.2 pg (27.0-32.0); Mean Platelet Vol. 10.9 fl (6.2-12.0); Monocyte# 0.67 X10^3/uL; Monocyte% 5.9 % (0-10); NRBC Flagged by Analyzer 0 % (0-5); Neutrophil # 8.97 X10^3/uL (2.7-7.7); Neutrophil % 79.5 % (47-70); Platelet Count 232 K/mm3 (150-450); RBC Distribution Width CV 12.5 % (11.6-14.6); RBC Distribution Width SD 42.6 fl (35.1-43.9); Red Blood Count 3.98 M/mm3 (4.2-5.4); White Blood Count 11.3 K/mm3 (4.4-11.0)
[2021-02-23 11:28] LABS: Glucose Challenge Gest 1H 50g 156 mg/dL (70-140)
[2021-02-23 13:25] LABS: Amphetamine Urine VISTA NEGATIVE (<1000 ng/mL); Barbiturate Urine VISTA NEGATIVE (< 200 ng/mL); Benzodiazepine Urine VISTA NEGATIVE (< 200 ng/mL); Cocaine Urine VISTA NEGATIVE (< 300 ng/mL); Ecstacy Urine VISTA NEGATIVE (< 500 ng/mL); Methadone Urine VISTA NEGATIVE (< 300 ng/mL); PCP Urine VISTA NEGATIVE (< 25 ng/mL); THC Urine VISTA POSITIVE (< 50 ng/mL); Vista UDS pH Range 6
== END ==
PROVIDERS: Nurse Practitioner Women's Health; PCP Family Medicine; Referring Provider Obstetrics & Gynecology; Visit Provider Obstetrics & Gynecology
DX: O99.322 Drug use complicating pregnancy, second trimester (principal); F12.90 Cannabis use, unspecified, uncomplicated; Z3A.21 21 weeks gestation of pregnancy; Z13.1 Encounter for screening for diabetes mellitus
CPT/HCPCS: 80307; 82950; 85025; 86850; 86900; 86901

== ENCOUNTER 2021-03-01 14:20 | Outpatient (CLI) | payer MEDICAID, SELFPAY ==
[2021-02-23 11:22] VITALS: BMI 29.9
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
[2021-03-01 14:37] VITALS: BP 113/54; PULSE 83; TEMP 36.8
[2021-03-01 14:47] VITALS: BMI 29.9
[2021-03-01 15:23] LABS: Absolute Lymphocyte Count 1.39 X10^3/uL (0.83-4.51); Absolute Neutrophil Count 8.4 X10^3/uL (2.0-7.7); Basophil# 0.02 X10^3/uL; Basophil% 0.2 % (0-1); Eosinophil# 0.07 X10^3/uL; Eosinophils% 0.7 % (0-5); Hemoglobin 11.5 g/dL (12.0-15.0); Lymphocyte # 1.39 X10^3/ul (0.83-4.51); Mean Corp Hgb Conc 33.8 g/dL (32-36); Mean Corpuscular Hgb 31.3 pg (27.0-32.0); Mean Corpuscular Volume 92.4 fL (81-99); Mean Platelet Vol. 10.9 fl (6.2-12.0); Monocyte# 0.78 X10^3/uL; Monocyte% 7.3 % (0-10); NRBC Flagged by Analyzer 0 % (0-5); Neutrophil # 8.39 X10^3/uL (2.7-7.7); Neutrophil % 78.2 % (47-70); Platelet Count 228 K/mm3 (150-450); RBC Distribution Width CV 12.5 % (11.6-14.6); RBC Distribution Width SD 42.3 fl (35.1-43.9); Red Blood Count 3.68 M/mm3 (4.2-5.4); White Blood Count 10.7 K/mm3 (4.4-11.0)
[2021-03-01 15:39] LABS: Fibrinogen 279 mg/dl (203-444)
[2021-03-01 16:05] VITALS: TEMP 36.8
[2021-03-01 16:06] VITALS: BP 89/52; PULSE 74
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
[2021-03-01 17:38] VITALS: BP 111/59; PULSE 72
[2021-03-01 18:30] LABS: Fibrinogen 356 mg/dl (203-444)
[2021-03-03 11:34] LABS: Kleihauer-Betke Negative
== END 2021-03-01 19:41 | disposition home or self-care (01) ==
LOC: WPOUT 14:25 → WP 14:26
PROVIDERS: PCP Family Medicine; Referring Provider Obstetrics & Gynecology; Visit Provider Obstetrics & Gynecology
DX: Z04.1 Encounter for examination and observation following transport accident (principal)
CPT/HCPCS: 36415; 59025; 59050; 76815; 85025; 85384; 85460; 86850; 86900; 86901; 90384; 99218; G0378; J2790

== ENCOUNTER → 2021-03-07 06:48 | Outpatient (CLI) | payer MEDICAID, SELFPAY ==
[2021-02-23 11:22] VITALS: BMI 29.9
[2021-03-01 14:47] VITALS: BMI 29.9
[2021-03-07 07:41] LABS: Glucose GTT-Gestation. Fasting 87 mg/dL (<105)
[2021-03-07 08:46] LABS: Glucose GTT-Gestational 1 Hr 167 mg/dL (<190)
[2021-03-07 09:41] LABS: Glucose GTT-Gestational 2 Hr 131 mg/dL (<165)
[2021-03-07 10:34] LABS: Glucose GTT-Gestational 3 Hr 75 L (<145)
== END ==
PROVIDERS: PCP Family Medicine; Referring Provider Nurse Practitioner Women's Health; Visit Provider Nurse Practitioner Women's Health
DX: Z13.1 Encounter for screening for diabetes mellitus (principal)
CPT/HCPCS: 36415; 82951; 82952

== ENCOUNTER → 2021-04-19 14:04 | Outpatient (CLI) | payer MEDICAID, SELFPAY ==
[2021-04-05 11:23] VITALS: BMI 29.9
[2021-04-19 10:50] VITALS: BMI 29.9
--- NOTE | 2021-04-19 14:06 | US_ITS ---
STUDY: SECOND AND THIRD TRIMESTER OBSTETRICAL ULTRASOUND REASON FOR EXAM: Female, 26 years old growth LMP: 08/12/2020. TECHNIQUE: Transabdominal and Transvaginal TECHNICAL QUALITY: Adequate. PRIOR ULTRASOUND: Comparison is made with prior study of 03/01/2021. FINDINGS: There is a single intrauterine fetus. The fetus is in a cephalic presentation. There is demonstrated cardiac activity with a heart rate of 161 bpm. There is a normal amniotic fluid volume. The largest amniotic fluid pocket measures 5.6 cm x 5.6 cm. The amniotic fluid index (MYRIAM) is 12.5 cm. The placenta is posterior in location and is not low lying. There are Grade 3 placental changes. The cervix measures 1.9 cm in length. The bilateral adnexal regions are normal. BIOMETRY: BPD: 9.28 cm: 37 weeks, 5 days HC: 32.08 cm: 36 weeks, 1 days AC: 32.09 cm: 36 weeks, 0 days FL: 6.67 cm: 34 weeks, 2 days CI: 87.9% FL/BPD: 72% FL/HC: FL/AC: 20.8% HC/AC: 1 age by current US: 35 weeks, 3 days. CRYS by current US: 05/21/2021. Estimated weight: 2818 grams, +/- 423 grams, 57.3 %. age by prior US: 35 weeks, 5 days. CRYS by prior US: 05/19/2021. Age by LMP: 35 weeks, 5 days. CRYS by LMP: 05/19/2021. IMPRESSION: Single live intrauterine gestation with a mean gestational age of 35 weeks and 5 days. The measurements obtained today following within the normal limits. The cervical length measures 1.9 cm. Electronically Signed: Leandro Corrigan MD at 15:21 EDT , Service support , STUDY: FIRST TRIMESTER OBSTETRICAL ULTRASOUND REASON FOR EXAM: Female, 26 years old growth . Cervical length measurement. LMP: 08/12/2020. TECHNIQUE: Transvaginal TECHNICAL QUALITY: Adequate. PRIOR ULTRASOUND: Comparison is made with prior study dated 03/01/2021. FINDINGS: The cervical length measures 1.9 cm. US/OB Limited With Biometrics IMPRESSION: The cervical length measures 1.9 cm. Electronically Signed: Leandro Corrigan MD at 15:23 EDT , Service support ,
== END ==
PROVIDERS: PCP Family Medicine; Referring Provider Nurse Practitioner Women's Health; Visit Provider Nurse Practitioner Women's Health
DX: O99.810 Abnormal glucose complicating pregnancy (principal); O09.90 Supervision of high risk pregnancy, unspecified, unspecified trimester; Z3A.00 Weeks of gestation of pregnancy not specified
CPT/HCPCS: 76816; 76817; 87081

== ENCOUNTER 2021-05-12 05:30 | Inpatient (IN) | payer MEDICAID, SELFPAY ==
[2021-02-07 11:44] VITALS: BMI 29.9
[2021-05-09 11:34] VITALS: BMI 29.9
[2021-05-12] VITALS (16 sets, daily range): BP systolic 91–124; BP diastolic 30–71; PULSE 58–82; RESP 12–18; TEMP 35.8–37; O2SAT 95–98; BMI 31.4
[2021-05-12] MEDS: Lactated Ringers 1,000 ML 999 ML IV (05:40)
[2021-05-12 06:14] LABS: Absolute Lymphocyte Count 1.75 X10^3/uL (0.83-4.51); Absolute Neutrophil Count 8.3 X10^3/uL (2.0-7.7); Basophil# 0.04 X10^3/uL; Basophil% 0.4 % (0-1); Eosinophils% 0.9 % (0-5); Hematocrit 31.8 % (37-47); Lymphocyte # 1.75 X10^3/ul (0.83-4.51); Lymphocyte % 15.5 % (19-41); Mean Corp Hgb Conc 34.6 g/dL (32-36); Mean Corpuscular Hgb 31.3 pg (27.0-32.0); Mean Corpuscular Volume 90.6 fL (81-99); Mean Platelet Vol. 11.6 fl (6.2-12.0); Monocyte# 0.95 X10^3/uL; Monocyte% 8.4 % (0-10); NRBC Flagged by Analyzer 0 % (0-5); Neutrophil # 8.29 X10^3/uL (2.7-7.7); Neutrophil % 73.6 % (47-70); Platelet Count 209 K/mm3 (150-450); RBC Distribution Width CV 12.4 % (11.6-14.6); RBC Distribution Width SD 40.9 fl (35.1-43.9); Red Blood Count 3.51 M/mm3 (4.2-5.4); White Blood Count 11.3 K/mm3 (4.4-11.0)
[2021-05-12] MEDS: Acetaminophen 500 MG Tablet 1000 MG PO ×3 (06:24→18:27)
[2021-05-12] MEDS: Sodium Citrate/Citric Acid 30 ML UDC PO (06:24)
[2021-05-12 07:01] LABS: Amphetamine Urine VISTA NEGATIVE (<1000 ng/mL); Barbiturate Urine VISTA NEGATIVE (< 200 ng/mL); Benzodiazepine Urine VISTA NEGATIVE (< 200 ng/mL); Cocaine Urine VISTA NEGATIVE (< 300 ng/mL); Ecstacy Urine VISTA NEGATIVE (< 500 ng/mL); Methadone Urine VISTA NEGATIVE (< 300 ng/mL); PCP Urine VISTA NEGATIVE (< 25 ng/mL); THC Urine VISTA POSITIVE (< 50 ng/mL); Vista UDS pH Range 7
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
[2021-05-12] MEDS: Cefazolin 2 GM in 0.9% Normal Saline 100 ML IV (07:19)
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
--- NOTE | 2021-05-12 08:28 | PCM.DC ---
Discharge Instructions Diet Discharge Diet: No restrictions Activity May resume sexual activity in: 4-6 weeks Lifting Restrictions: 20 lbs Additional Activity Instructions:: Nothing in the vagina for 4-6 weeks. You may return to work/school in 6 weeks. Dressing / Incision Call your doctor if your incision/area has: Continuous Slow Oozing, Sudden Increased Bleeding, Increased Pain/ Swelling, Increased Redness and Foul Smelling Discharge Call your doctor if you observe: Fever of 101 or Higher Suture Line Care: Avoid Pulling/Pushing and Avoid Pinching/Bending Follow Up Care When: Call to make an appointment with your doctor for an incision check in 1-2 weeks. You will also need a 6 week post- follow up appointment. Test Results: Test results from this visit will be discussed in further detail at your follow-up appointment, if applicable. Discharge Plan Admission Admit Date/Time: 05/12/21 05:30 Primary Reason for Your Visit: Scheduled Attending Provider: Maggie Henry Primary Care Provider: Blas Woodson Instructions Patient Instructions: After a Discharge Orders/Prescriptions Prescriptions: New ibuprofen 800 mg tablet 800 mg PO Q8H PRN (Reason: pain) Qty: 30 RF: 1 oxycodone 5 mg capsule 5 mg PO Q6H PRN (Reason: pain) 7 Days Qty: 15 RF: 0 Continued citalopram 20 MG tablet 20 mg PO DAILY RF: 0 Discontinued PNV-DHA 27 mg iron-1 mg -300 mg capsule PO RF: 0 valacyclovir [Valtrex] 500 mg tablet 500 mg PO DAILY RF: 0 Referrals / Follow Up: Blas Woodson DO [Primary Care Provider] -
[2021-05-12] MEDS: Ketorolac 30 MG/ML Syringe IV ×3 (09:00→20:33)
[2021-05-12] MEDS: Oxytocin 30 units/NS 500 ml 30 UNITS/500 ML IV.SOLN 167 UNITS IV (09:27)
[2021-05-12] MEDS: Citalopram 20 MG Tablet PO (11:54)
[2021-05-12] MEDS: Lactated Ringers 1,000 ML 100 ML IV (12:28)
[2021-05-12] MEDS: HYDROmorphone 0.5 MG/0.5 ML SYRINGE IV (12:39)
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
[2021-05-13] MEDS: Acetaminophen 500 MG Tablet 1000 MG PO ×4 (00:17→18:31)
[2021-05-13 00:18] VITALS: BP 99/45; PULSE 56; RESP 18; O2SAT 97
[2021-05-13] MEDS: Ketorolac 30 MG/ML Syringe IV (03:42)
[2021-05-13 03:46] VITALS: BP 112/60; PULSE 50; RESP 18; O2SAT 98
[2021-05-13 06:04] LABS: Hematocrit 28.8 % (37-47); Hemoglobin 9.4 g/dL (12.0-15.0); Mean Corp Hgb Conc 32.6 g/dL (32-36); Mean Corpuscular Hgb 30.9 pg (27.0-32.0); Mean Corpuscular Volume 94.7 fL (81-99); Mean Platelet Vol. 11.2 fl (6.2-12.0); Platelet Count 171 K/mm3 (150-450); RBC Distribution Width CV 12.6 % (11.6-14.6); RBC Distribution Width SD 43.8 fl (35.1-43.9); Red Blood Count 3.04 M/mm3 (4.2-5.4)
[2021-05-13] MEDS: Ibuprofen 600 MG Tablet PO ×3 (08:19→20:56)
[2021-05-13 08:21] VITALS: BP 99/50; PULSE 56; RESP 16; TEMP 36.4; O2SAT 96
[2021-05-13] MEDS: oxyCODONE 5 MG Tablet PO ×4 (08:37→20:18)
[2021-05-13] MEDS: Citalopram 20 MG Tablet PO (08:38)
[2021-05-13] MEDS: Senna/Docusate Sodium 1 Tablet PO (08:38)
--- NOTE | 2021-05-13 08:55 | PCM.PN.OB ---
Subjective Subjective Patient doing well without complaints. Tolerating PO. Ambulating and voiding without difficulty. Breast feeding well. Denies chest pain, shortness of breath, calf pain/swelling, fevers, chills, lightheadedness. Objective Data Objective Data Vital Signs: Vital Signs Temp Pulse Resp BP Pulse Ox 97.6 F L 56 L 16 99/50 L 96 05/13/21 08:21 05/13/21 08:21 05/13/21 08:21 05/13/21 08:21 05/13/21 08:21 Oxygen Delivery Method Room Air Weight: 206 lb 9.6 oz Body Mass Index (BMI) 31.4 Intake & Output: Intake and Output for Last 24 Hours 05/11/21 05/12/21 05/13/21 23:59 23:59 23:59 Intake Total 2660 / 2660 Output Total 400 / 400 600 / 600 Balance 2260 / 2260 -600 / -600 Lab / Micro Data Result Diagrams: 05/13/21 05:55 Labs: Laboratory Results - last 24 hr 05/12/21 12:35: Screen NEGATIVE, Baby's Blood Type O POSITIVE, Baby's ANUSHKA NEGATIVE 05/13/21 05:55: WBC 9.0, RBC 3.04 L, Hgb 9.4 L, Hct 28.8 L, MCV 94.7, MCH 30.9, MCHC 32.6 D, RDW Std Deviation 43.8, RDW Coeff of Dilan 12.6, Plt Count 171, MPV 11.2 Micro: Microbiology 05/12/21 05:55 Mucosa - Nose SARS-CoV-2 Antigen (Rapid) - Final ROS Constitutional Constitutional: Denies fever(s) Cardiovascular Cardiovascular: Denies chest pain, dyspnea or lightheadedness Gastrointestinal Gastrointestinal: Reports abdominal pain; Denies constipation or diarrhea Neurologic Neurologic: Denies dizziness or headache(s) Physical Exam Const alert, oriented x3, no apparent distress, average body habitus, healthy appearing and well nourished HEENT normocephalic Head and Scalp: atraumatic Eyes PERRL and EOMs intact bilaterally Neck full ROM Lymph Lymphatic: no lymphadenopathy noted Resp normal respiratory effort, no retractions and no use of accessory muscles Cardio regular rate GI soft to palpation, non-tender and non-distended Inspection: incision intact and other (dressing in place) Palpation: other Other Details: fundus firm Extremity normal to inspection and no clubbing, cyanosis or edema Skin no rashes or lesions noted Neuro no focal motor deficits and no sensory deficits noted Psych mental status grossly normal, affect normal and speech normal Assessment & Plan (1) delivery delivered: PLAN: s/p LTCS PPD # 1 1. routine post care 2. breast feeding- support given 3. rh negative - rhogam studies done 4. rubella immune
[2021-05-13 14:33] VITALS: BP 103/52; PULSE 58; RESP 16; TEMP 36.6; O2SAT 96
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
[2021-05-13 20:20] VITALS: BP 105/40; PULSE 58; RESP 18; TEMP 36.6
[2021-05-14] MEDS: Acetaminophen 500 MG Tablet 1000 MG PO ×3 (00:32→12:40)
[2021-05-14] MEDS: Ibuprofen 600 MG Tablet PO ×2 (02:38→09:10)
[2021-05-14 02:39] VITALS: BP 112/44; PULSE 60; RESP 16; TEMP 36.6
[2021-05-14] MEDS: oxyCODONE 5 MG Tablet PO ×2 (03:54→10:05)
[2021-05-14 09:12] VITALS: BP 107/51; PULSE 53; RESP 16; TEMP 36.5; O2SAT 97
--- NOTE | 2021-05-14 09:48 | PCM.PN.OB ---
Subjective Subjective Patient doing well without complaints. Tolerating PO. Ambulating and voiding without difficulty. feeding well. Denies chest pain, shortness of breath, calf pain/swelling, fevers, chills, lightheadedness. Objective Data Objective Data Vital Signs: Vital Signs Temp Pulse Resp BP Pulse Ox 97.7 F L 53 L 16 107/51 L 97 05/14/21 09:12 05/14/21 09:12 05/14/21 09:12 05/14/21 09:12 05/14/21 09:12 Oxygen Delivery Method Room Air Weight: 206 lb 9.6 oz Body Mass Index (BMI) 31.4 Intake & Output: Intake and Output for Last 24 Hours 05/12/21 05/13/21 05/14/21 23:59 23:59 23:59 Intake Total 2660 / 2660 Output Total 400 / 400 1400 / 1400 Balance 2260 / 2260 -1400 / -1400 Lab / Micro Data Result Diagrams: 05/13/21 05:55 Micro: Microbiology 05/12/21 05:55 Mucosa - Nose SARS-CoV-2 Antigen (Rapid) - Final ROS Constitutional Constitutional: Reports systems reviewed and no addt'l complaints, except as documented Cardiovascular Cardiovascular: Reports systems reviewed and no addt'l complaints, except as documented Respiratory/Chest Respiratory/Chest: Reports systems reviewed and no addt'l complaints, except as documented Gastrointestinal Gastrointestinal: Reports systems reviewed and no addt'l complaints, except as documented Physical Exam Const alert, oriented x3 and no apparent distress HEENT Head and Scalp: atraumatic Resp normal respiratory effort GI soft to palpation and non-tender Inspection: incision intact, healing well and drainage (none) Bimanual Exam - Vag & Uterus: uterus non-tender Uterus Palpation: uterus fundus firm (below Umbilicus) Assessment & Plan (1) delivery delivered: PLAN: s/p LTCS PPD # 2 1. routine post care 2. breast feeding- support given 3. rh neg- rhogam prn 4. rubella immune
[2021-05-14] MEDS: Senna/Docusate Sodium 1 Tablet PO (09:53)
[2021-05-14] MEDS: Citalopram 20 MG Tablet PO (09:53)
[2021-05-14 12:42] VITALS: BP 104/48; PULSE 57; RESP 16; TEMP 36.7; O2SAT 97
--- NOTE | 2021-06-27 13:35 | CASEMGMT ---
Social Work Labor and Delivery Meconium drug screen results are back and positive for marijuana. Reported findings to Sarah Cutler at [facility], [phone] [id number] [phone]. No other services requested or indicated. -NITO John MARKETING COPYWRITER
== END 2021-05-14 13:30 | disposition home or self-care (01) | DRG 540 ==
PROVIDERS: Admitting Provider Obstetrics & Gynecology; PCP Family Medicine; Visit Provider Obstetrics & Gynecology
PROC: 10D00Z1 Extraction of Products of Conception, Low, Open Approach (ICD-10-PCS; CPT 59514; principal; 2021-05-12 07:15)
DX: O69.81X0 Labor and delivery complicated by cord around neck, without compression, not applicable or unspecified (principal); O69.2XX0 Labor and delivery complicated by other cord entanglement, with compression, not applicable or unspecified; O99.810 Abnormal glucose complicating pregnancy; O99.344 Other mental disorders complicating childbirth; F41.9 Anxiety disorder, unspecified; O99.324 Drug use complicating childbirth; F12.90 Cannabis use, unspecified, uncomplicated; O36.0120 Maternal care for anti-D [Rh] antibodies, second trimester, not applicable or unspecified; O98.32 Other infections with a predominantly sexual mode of transmission complicating childbirth; A60.00 Herpesviral infection of urogenital system, unspecified; Z3A.39 39 weeks gestation of pregnancy; Z37.0 Single live birth; Z87.59 Personal history of other complications of pregnancy, childbirth and the puerperium
CPT/HCPCS: 80307; 85025; 85027; 85461; 86850; 86900; 86901; 87426; 90384; 99218; J7120; G0378; J2405; J2790

== ENCOUNTER → 2021-05-27 14:27 | Outpatient (CLI) | payer MEDICAID, SELFPAY ==
[2021-05-12 05:49] VITALS: BMI 31.4
--- NOTE | 2021-05-27 14:29 | US_ITS ---
STUDY: ULTRASOUND BREAST - LEFT REASON FOR EXAM: Female, 26 years old. Left mastoiditis. 2 weeks . TECHNIQUE: Axial and longitudinal images of the LEFT breast were performed with a high resolution ultrasound transducer. # OF IMAGES: 44 COMPARISON: None. FINDINGS: LEFT Breast: Mildly dilated retroareolar ducts. No fluid collection or abscess collection is seen. US/Breast Limited Unilateral IMPRESSION: Mildly dilated retroareolar ducts. ASSESSMENT CATEGORY: BIRADS Category 2: Benign. A letter regarding these results will be sent to the patient by the facility within 30 days. Electronically Signed: Leandro Corrigan MD at 15:01 EDT , Service support ,
== END ==
PROVIDERS: PCP Family Medicine; Referring Provider Obstetrics & Gynecology; Visit Provider Obstetrics & Gynecology
DX: N61.0 Mastitis without abscess (principal)
CPT/HCPCS: 76642; 87070; 87077; 87186; 87205

== ENCOUNTER → 2021-06-24 | Outpatient (CLI) | payer MEDICAID, SELFPAY | END | disposition home or self-care (01) | LOC: LABSPEC 17:01 | PROVIDERS: PCP Family Medicine; Visit Provider Obstetrics & Gynecology | DX: N89.8 Other specified noninflammatory disorders of vagina (principal) | CPT/HCPCS: 87070; 87205 ==

== ENCOUNTER → 2021-08-02 | Outpatient (CLI) | payer MEDICAID, SELFPAY ==
[2021-08-04 05:07] LABS: Chlamydia By Nucleic Acid AMP Negative (Negative)
[2021-08-04 15:19] LABS: Gonococcus By Nucleic Acid AMP Negative (Negative)
== END | disposition home or self-care (01) ==
LOC: LABSPEC 12:41
PROVIDERS: PCP Family Medicine; Referring Provider Nurse Practitioner Women's Health; Visit Provider Nurse Practitioner Women's Health
DX: Z11.3 Encounter for screening for infections with a predominantly sexual mode of transmission (principal); N76.0 Acute vaginitis
CPT/HCPCS: 87070; 87205; 87491; 87591

== ENCOUNTER → 2021-08-15 | Outpatient (CLI) | payer MEDICAID, SELFPAY | END | disposition home or self-care (01) | LOC: LABSPEC 11:15 | PROVIDERS: PCP Family Medicine; Referring Provider Nurse Practitioner Women's Health; Visit Provider Nurse Practitioner Women's Health | DX: N76.0 Acute vaginitis (principal) | CPT/HCPCS: 87070; 87205 ==

== ENCOUNTER → 2021-09-06 | Outpatient (CLI) | payer MEDICAID, SELFPAY ==
[2021-09-12 03:06] LABS: Chlamydia By Nucleic Acid AMP Negative (Negative)
[2021-09-12 13:40] LABS: Gonococcus By Nucleic Acid AMP Negative (Negative)
== END | disposition home or self-care (01) ==
PROVIDERS: PCP Family Medicine; Visit Provider Obstetrics & Gynecology
DX: N89.8 Other specified noninflammatory disorders of vagina (principal)
CPT/HCPCS: 87070; 87205; 87491; 87591

== ENCOUNTER 2021-11-04 17:04 | Outpatient (CLI) | payer MEDICAID, SELFPAY ==
[2021-11-07 04:07] LABS: Chlamydia By Nucleic Acid AMP Negative (Negative)
[2021-11-07 11:24] LABS: Gonococcus By Nucleic Acid AMP Negative (Negative)
== END 2021-11-04 23:59 | disposition short-term general hospital (02) ==
PROVIDERS: PCP Family Medicine; Visit Provider Obstetrics & Gynecology
DX: Z11.3 Encounter for screening for infections with a predominantly sexual mode of transmission (principal)
CPT/HCPCS: 87491; 87591

== ENCOUNTER 2021-12-23 17:04 | Outpatient (CLI) | payer MEDICAID, SELFPAY ==
[2021-12-26 15:08] LABS: Chlamydia By Nucleic Acid AMP Negative (Negative)
[2021-12-26 20:52] LABS: Gonococcus By Nucleic Acid AMP Negative (Negative)
== END 2021-12-23 23:59 | disposition home or self-care (01) ==
PROVIDERS: PCP Family Medicine; Visit Provider Obstetrics & Gynecology
DX: N89.8 Other specified noninflammatory disorders of vagina (principal)
CPT/HCPCS: 87491; 87591

== ENCOUNTER → 2022-05-09 | Outpatient (CLI) | payer MEDICAID, SELFPAY ==
[2022-05-10 22:06] LABS: Chlamydia By Nucleic Acid AMP Negative (Negative)
[2022-05-11 12:46] LABS: Gonococcus By Nucleic Acid AMP Negative (Negative)
[2022-05-11 13:17] LABS: HPV Reflexed? NOT INDICATED
== END | disposition home or self-care (01) ==
LOC: LABSPEC 12:03 → AC 12:50
PROVIDERS: PCP Family Medicine; Visit Provider Nurse Practitioner Women's Health
DX: Z11.3 Encounter for screening for infections with a predominantly sexual mode of transmission (principal); Z12.4 Encounter for screening for malignant neoplasm of cervix; R87.610 Atypical squamous cells of undetermined significance on cytologic smear of cervix (ASC-US)
CPT/HCPCS: 87070; 87077; 87205; 87491; 87591; 88175; G0145

== ENCOUNTER → 2022-06-05 | Outpatient (CLI) | payer MEDICAID, SELFPAY ==
[2022-06-05 18:17] LABS: Chlamydia Trachomatis by PCR Negative (Negative); Neisserai gonorrhoeae by PCR Negative (Negative); Probe Check PASS; Sample Adequacy Control PASS; Specimen Processing Control PASS
== END | disposition home or self-care (01) ==
LOC: LABSPEC 16:08
PROVIDERS: PCP Family Medicine; Referring Provider Nurse Practitioner Women's Health; Visit Provider Nurse Practitioner Women's Health
DX: Z11.3 Encounter for screening for infections with a predominantly sexual mode of transmission (principal)
CPT/HCPCS: 87491; 87591

== ENCOUNTER → 2022-07-03 | Outpatient (CLI) | payer MEDICAID, SELFPAY ==
--- NOTE | 2022-07-03 11:33 | US_ITS ---
INDICATION: painful heavy bleeding EXAMINATION: Ultrasound US Transvaginal Non-OB TECHNIQUE: Transvaginal (for optimal evaluation of the adnexa) pelvic ultrasound was performed. Grayscale, spectral waveform, and color flow Doppler evaluation of the adnexa. COMPARISON: 04/19/2021. FINDINGS: UTERUS: The uterus is anteverted in position, demonstrates heterogeneous echogenicity but no localized masses are seen.. The uterus measures 9.0 x 5.9 x 4.5 cm. The endometrial stripe measures 0.8 cm in AP diameter which is within normal limits. A circumscribed hypoechoic areas visualized in the endometrial cavity that could represent fluid best visualized on series 1 image 25 measuring 1.1 x 0.5 cm. RIGHT OVARY: The right ovary measures 3.6 x 1.9 x 1.8 cm. Non-enlarged, normal echogenicity. There is normal arterial inflow and venous outflow present in the right ovary. LEFT OVARY: The left ovary measures 2.0 x 1.5 x 1.1 cm.. Non-enlarged, normal echogenicity. There is normal arterial inflow and venous outflow present in the left ovary. FREE FLUID: No evidence of free fluid in the pelvis. US/Pelvic (Non ) IMPRESSION: Focal hypoechoic echogenicity visualized within the endometrial cavity suggestive of fluid. No evidence of uterine masses. The ovaries are unremarkable. Electronically Signed: Paresh Floyd MD at 14:07 EDT ,
--- NOTE | 2022-07-03 11:33 | US_ITS ---
INDICATION: painful heavy bleeding EXAMINATION: Ultrasound US Transvaginal Non-OB TECHNIQUE: Transvaginal (for optimal evaluation of the adnexa) pelvic ultrasound was performed. Grayscale, spectral waveform, and color flow Doppler evaluation of the adnexa. COMPARISON: 04/19/2021. FINDINGS: UTERUS: The uterus is anteverted in position, demonstrates heterogeneous echogenicity but no localized masses are seen.. The uterus measures 9.0 x 5.9 x 4.5 cm. The endometrial stripe measures 0.8 cm in AP diameter which is within normal limits. A circumscribed hypoechoic areas visualized in the endometrial cavity that could represent fluid best visualized on series 1 image 25 measuring 1.1 x 0.5 cm. RIGHT OVARY: The right ovary measures 3.6 x 1.9 x 1.8 cm. Non-enlarged, normal echogenicity. There is normal arterial inflow and venous outflow present in the right ovary. LEFT OVARY: The left ovary measures 2.0 x 1.5 x 1.1 cm.. Non-enlarged, normal echogenicity. There is normal arterial inflow and venous outflow present in the left ovary. FREE FLUID: No evidence of free fluid in the pelvis. US/Transvaginal Non- IMPRESSION: Focal hypoechoic echogenicity visualized within the endometrial cavity suggestive of fluid. No evidence of uterine masses. The ovaries are unremarkable. Electronically Signed: Paresh Floyd MD at 14:07 EDT ,
== END | disposition home or self-care (01) ==
LOC: US 11:32
PROVIDERS: PCP Family Medicine; Referring Provider Obstetrics & Gynecology; Visit Provider Obstetrics & Gynecology
DX: N92.1 Excessive and frequent menstruation with irregular cycle (principal)
CPT/HCPCS: 76830; 76856

== ENCOUNTER → 2022-07-20 | Outpatient (CLI) | payer MEDICAID, SELFPAY ==
[2022-07-20 10:16] LABS: T4 Free Direct 0.91 ng/dL (0.76-1.46); T4 Total, Thyroxin 7.6 ug/dL (4.8-13.9); Thyroid Stim Hormone (TSH) 0.46 uIU/mL (0.358-3.74)
[2022-07-20 11:03] LABS: HIV - WCH Non-Reactive (Nonreactive); Hepatitis C Antibody Non-Reactive (Nonreactive); Syphilis Antibodies Non-reactive
[2022-07-21 15:46] LABS: HSV 1 IgG < 0.91 index (0.00-0.90)
== END | disposition home or self-care (01) ==
LOC: PAVLAB 09:23
PROVIDERS: Obstetrics & Gynecology; PCP Family Medicine; Referring Provider Nurse Practitioner Women's Health; Visit Provider Nurse Practitioner Women's Health
DX: N92.1 Excessive and frequent menstruation with irregular cycle (principal); Z13.29 Encounter for screening for other suspected endocrine disorder
CPT/HCPCS: 36415; 84436; 84439; 84443; 86695; 86696; 86703; 86780; 86803

== ENCOUNTER → 2022-09-14 | Outpatient (CLI) | payer MEDICAID, SELFPAY ==
[2022-09-19 05:06] LABS: Chlamydia By Nucleic Acid AMP Negative (Negative)
[2022-09-19 10:59] LABS: Gonococcus By Nucleic Acid AMP Negative (Negative)
== END | disposition home or self-care (01) ==
PROVIDERS: PCP Family Medicine; Visit Provider Obstetrics & Gynecology
DX: Z20.2 Contact with and (suspected) exposure to infections with a predominantly sexual mode of transmission (principal); N89.8 Other specified noninflammatory disorders of vagina; N39.0 Urinary tract infection, site not specified
CPT/HCPCS: 87070; 87077; 87086; 87088; 87205; 87491; 87591

== ENCOUNTER → 2023-05-03 | Outpatient (CLI) | payer MEDICAID, SELFPAY ==
[2023-05-07 21:12] LABS: Chlamydia By Nucleic Acid AMP Negative (Negative); Gonococcus By Nucleic Acid AMP Negative (Negative)
== END | disposition home or self-care (01) ==
LOC: LABSPEC 15:43
PROVIDERS: PCP Family Medicine; Referring Provider Advanced Practice Midwife; Visit Provider Advanced Practice Midwife
DX: N76.0 Acute vaginitis (principal)
CPT/HCPCS: 87070; 87205; 87491; 87591

== ENCOUNTER 2023-06-20 12:19 | Emergency (ER) | payer MEDICAID, SELFPAY ==
[2023-06-20 12:20] VITALS: BP 134/88; PULSE 60; RESP 16; TEMP 36.1; O2SAT 100; BMI 26.9
--- NOTE | 2023-06-20 12:29 | CT_ITS ---
STUDY: CT FACIAL BONES WITH CONTRAST REASON FOR EXAM: Female, 28 years old. Left-sided facial swelling. RADIATION DOSAGE (If Supplied By Facility): CTDIvol = ( 29.38 ) mGy, DLP = ( 613.57 ) mGycm TECHNIQUE: The patient was scanned in a multi detector CT scanner. Transaxial imaging was performed following the intravenous administration of IV 100mL [id number]-[id number]. Sagittal and coronal images were reconstructed. Individualized dose optimization techniques were used for this CT. COMPARISON: None. FINDINGS: There is soft tissue swelling overlying the region of the left side of the mandible. The inflammatory changes are also seen along the left side of the floor of the mouth. No bony abnormality is seen. Normal orbital denson and orbital contents. Normal nasal bones and anterior nasal spine. Normal facial bones. There is no demonstrated fracture. Mucosal retention cyst or polyp is seen in the right maxillary sinus. CT/Sinus/Facial Bone WITH Contras IMPRESSION: Inflammatory changes are seen overlying the left side of the mandible as well as at the floor the mouth more prominent on the left side. No definite abscess or bony destruction is seen at this time. Electronically Signed: Leandro Corrigan MD at 13:07 EDT ,
--- NOTE | 2023-06-20 12:32 | ED.VIS.DENTA ---
HPI History of Present Illness Chief Complaint: Dental Informant: patient Onset/Context/Timing Onset: Weeks (1 week) Context: Gradual Onset Narrative Narrative: Patient presents with a 1 week history of dental infection. She developed intermittent left-sided dental pain a week ago. By Sunday pain was constant and developed facial swelling. She got into see her dentist this morning who then sent her on to an marketing [employer]. Prescription for clindamycin was sent to the pharmacy for her. Agricultural Engineering Teacher was concern for possible Damon's angina and sent her to the emergency room. At this time patient is tolerating secretions and speaks with a strong voice. She states that tooth #19 had a root canal a year ago. She had some problems right after the surgery and had to have another procedure. She states for the past 6 or 7 months she had no problems with it. 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 , currently Home Medications citalopram 20 mg tablet 20 mg PO DAILY 10/31/19 [History Last Taken 03/01/21 10:00 20 mg] acyclovir 400 mg tablet See Rx Instructions .Route .COMPLEX #780 tabs 11/18/22 [Rx Last Taken Unknown] metronidazole 500 mg tablet 500 mg PO BID #14 tabs 05/03/23 [Rx Last Taken Unknown] triamcinolone acetonide 0.1 % topical ointment 1 applic topical DAILY #30 grams 05/03/23 [Rx Last Taken Unknown] hydrocodone-acetaminophen 5-325mg 5mg-325mg 1 tab PO Q6H PRN PRN Pain 3 days #10 TABLETS 06/20/23 [Rx Last Taken Unknown] Allergy/AdvReac Type Severity Reaction Status Date / Time amoxicillin [Amoxicillin] Allergy Rash Verified 06/20/23 12:22 Penicillins Allergy Rash Verified 06/20/23 12:22 Surgical History H/O dilation and curettage H/O foot surgery Social History adopted: No household members: family housing: house number of children: 3 current occupational status: employed current occupation: [employer] pets and animals: Yes Smoking Status: Current every day smoker tobacco type: cigarettes second hand exposure: No alcohol intake: current details: social- not while substance use type: does not use seatbelt use: always do you feel safe at home: Yes additional social history: Spouse: Ashon- student ([employer]- 6, Wes-11) ROS ROS ED Constitutional Constitutional ED: Denies chills or fever(s) Eyes Eyes: Denies change in vision ENT ENT ED: Reports other Details: Left lower dental pain Cardiovascular Cardiovascular: Denies chest pain or palpitations Respiratory/Chest Respiratory/Chest: Denies cough or dyspnea Gastrointestinal Gastrointestinal: Denies abdominal pain, nausea or vomiting Neurologic Neurologic: Denies headache(s) Psychiatric Psychiatric: Denies anxiety or depression Allergic/Immunologic Allergic/Immunologic ED: Denies mouth swelling or tongue swelling EXAM Physical Exam Const Vital Signs: 06/20/23 12:20 Temperature 97 F L Temperature Source Temporal Pulse Rate 60 Respiratory Rate 16 Blood Pressure 134/88 H Blood Pressure Mean 103 Pulse Ox 100 Oxygen Delivery Method Room Air Positive well nourished and well developed General Appearance ED: well developed HEENT Reports normocephalic HEENT Narrative: Mild edema noted along the left jaw. Mild fullness in the submental space. Intraoral examination reveals soft space beneath the tongue with no edema. Tongue is not raised. Mild gum edema noted along the left mandible. No trismus. Posterior pharynx examination is unremarkable. Eyes PERRL and EOMs intact bilaterally Neck supple Chest Wall inspection of chest normal and palpation of chest normal Resp normal respiratory effort and clear to auscultation bilaterally Cardio regular rate and regular rhythm GI normal to inspection, nondistended, normoactive bowel sounds Palpation: soft Extremity normal to inspection Neuro oriented x3 and no sensory deficits noted Sensorium / Orientation: alert Motor Exam: strength 5/5 throughout Psych mental status grossly normal Skin no rashes or lesions noted MDM MDM MDM Narrative Medical decision making narrative: Patient given Mer[place] and clindamycin. Labwork obtained to evaluate for leukocytosis, anemia, and electrolyte derangement. CT scan of the facial bones obtained to evaluate for abscess. Lab Data Labs: Laboratory Results - last 24 hr 06/20/23 12:35 WBC 8.4 RBC 4.40 Hgb 13.3 Hct 39.7 MCV 90.2 MCH 30.2 MCHC 33.5 RDW Std Deviation 38.6 RDW Coeff of Dilan 11.7 Plt Count 269 MPV 10.5 Immature Gran % (Auto) 0.200 Neut % (Auto) 83.7 H Lymph % (Auto) 10.0 L [place] % (Auto) 5.0 Eos % (Auto) 0.7 Baso % (Auto) 0.4 Absolute Neuts (auto) 7.1 Absolute Lymphs (auto) 0.84 Nucleated RBC % 0 Sodium 135 L Potassium 3.9 Chloride 105 Carbon Dioxide 27.0 Anion Gap 3 L BUN 11 Creatinine 0.72 Estim Creat Clear Calc 117.35 Est GFR (MDRD) Af Amer 124 Est GFR (MDRD) Non-Af 102 BUN/Creatinine Ratio 15.3 Glucose 100 Calcium 8.7 Serum , Qual NEGATIVE Radiography Diagnostic Testing: Clinical Impression(s) from Imaging Studies Facial/Sinus 06/20/23 12:29 IMPRESSION: Inflammatory changes are seen overlying the left side of the mandible as well as at the floor the mouth more prominent on the left side. No definite abscess or bony destruction is seen at this time. Electronically Signed: Leandro Corrigan MD at 13:07 EDT , Treatment and Re-Evaluation Narrative: CBC was normal white count at 8.4. Hemoglobin is normal at 13.3. She does have 83% neutrophils. Chemistry studies are unremarkable. test is negative. CT scan of the facial bones with contrast reveals inflammatory changes in the left side the mandible and floor of the mouth. No abscess or bony destruction at this time. Clinically I do not believe patient has Damon's angina. We did discuss changes in the floor of her mouth and when to return. She has clindamycin waiting for her at the pharmacy and I will send a prescription for Meriden as well. Addendum: Received a phone call from the pharmacy. They state that the patient is on Suboxone. In light of this Meriden will not be filled as it will not do any good for her. Discharge Plan Triage Chief Complaint: Dental ED Provider: Jany Norton Dx/Rx/DC Orders Clinical Impression: Dental infection Instructions: ED Dental Abscess Prescriptions: New hydrocodone-acetaminophen 5-325 mg tablet 1 tab PO Q6H PRN PRN (Reason: Pain) 3 Days Qty: 10 0RF No Action triamcinolone acetonide 0.1 % ointment 1 applic topical DAILY Qty: 30 0RF metronidazole 500 mg tablet 500 mg PO BID Qty: 14 0RF citalopram 20 MG tablet 20 mg PO DAILY acyclovir 400 mg tablet See Rx Instructions .ROUTE .COMPLEX Qty: 780 0RF Dose Instruction: take 1 tablet by mouth twice a day Rx Instructions: take 1 tablet by mouth twice a day Primary Care Provider: Blas Woodson Referrals: Blas Woodson DO [Primary Care Provider] - Activity Restrictions/Additional Instructions: Follow-up with your marketing reps sports and entertainment as scheduled. Please take the full course of antibiotics prescribed by your dentist. Disposition Disposition: Home, Self Care Discharge Date/Time: 06/20/23 13:48
[2023-06-20] MEDS: HYDROcodone Bitartrate/Apap 5/325 Tablet PO (12:34)
[2023-06-20] MEDS: Clindamycin HCl 150 MG Capsule 300 MG PO (12:34)
[2023-06-20 12:44] LABS: Absolute Lymphocyte Count 0.84 X10^3/uL (0.83-4.51); Absolute Neutrophil Count 7.1 X10^3/uL (2.0-7.7); Basophil# 0.03 X10^3/uL; Basophil% 0.4 % (0-1); Eosinophil# 0.06 X10^3/uL; Eosinophils% 0.7 % (0-5); Hematocrit 39.7 % (37-47); Hemoglobin 13.3 g/dL (12.0-15.0); Lymphocyte # 0.84 X10^3/ul (0.83-4.51); Mean Corp Hgb Conc 33.5 g/dL (32-36); Mean Corpuscular Hgb 30.2 pg (27.0-32.0); Mean Corpuscular Volume 90.2 fL (81-99); Mean Platelet Vol. 10.5 fl (6.2-12.0); Monocyte# 0.42 X10^3/uL; NRBC Flagged by Analyzer 0 % (0-5); Neutrophil # 7.05 X10^3/uL (2.7-7.7); Neutrophil % 83.7 % (47-70); Platelet Count 269 K/mm3 (150-450); RBC Distribution Width CV 11.7 % (11.6-14.6); RBC Distribution Width SD 38.6 fl (35.1-43.9); White Blood Count 8.4 K/mm3 (4.4-11.0)
[2023-06-20 12:55] LABS: Internal QC Validated? YES +Cl - CLEAR BKGD; Pregnancy, Serum, hCG Quali. NEGATIVE Negative; Record Kit Lot#, Serum Preg. HCG0000667200
[2023-06-20 12:57] LABS: Anion Gap 3 (5-15); BUN 11 mg/dL (7-18); BUN/Creat Ratio 15.3 RATIO (10-20); Calcium,Total 8.7 mg/dL (8.5-10.1); Chloride 105 mmol/L (98-107); Creatinine, Serum 0.72 mg/dL (0.55-1.02); EST Glomerular Filtration Rate 102 mL/min (>60); Est Glom Filt Rate - Afr Amer 124 mL/min (>60); Estimated Creatinine Clearance 117.35 ml/min; Glucose 100 mg/dL (74-106); Potassium 3.9 mmol/L (3.5-5.1); Sodium Level 135 mmol/L (136-145)
== END 2023-06-20 13:48 | disposition home or self-care (01) ==
PROVIDERS: Emergency Provider Emergency Medicine; PCP Family Medicine; Visit Provider Emergency Medicine
DX: K04.7 Periapical abscess without sinus (principal)
CPT/HCPCS: 70487; 80048; 84703; 85025; 99284; Q9967

== ENCOUNTER → 2024-01-03 | Outpatient (CLI) | payer MEDICAID, SELFPAY ==
[2024-01-07 21:07] LABS: Chlamydia By Nucleic Acid AMP Negative (Negative); Gonococcus By Nucleic Acid AMP Negative (Negative)
== END | disposition home or self-care (01) ==
LOC: LABSPEC 16:55
PROVIDERS: PCP Family Medicine; Referring Provider Advanced Practice Midwife; Visit Provider Advanced Practice Midwife
DX: N89.8 Other specified noninflammatory disorders of vagina (principal)
CPT/HCPCS: 87070; 87205; 87491; 87591

== ENCOUNTER → 2024-06-23 | Outpatient (CLI) | payer MEDICAID, SELFPAY ==
[2024-06-23 17:56] LABS: Absolute Lymphocyte Count 1.56 X10^3/uL (0.83-4.51); Absolute Neutrophil Count 2.8 X10^3/uL (2.0-7.7); Basophil# 0.01 X10^3/uL; Basophil% 0.2 % (0-1); Eosinophil# 0.03 X10^3/uL; Eosinophils% 0.6 % (0-5); Hematocrit 37.7 % (37-47); Hemoglobin 12.4 g/dL (12.0-15.0); Lymphocyte # 1.56 X10^3/ul (0.83-4.51); Lymphocyte % 32.7 % (19-41); Mean Corp Hgb Conc 32.9 g/dL (32-36); Mean Corpuscular Hgb 29.6 pg (27.0-32.0); Mean Platelet Vol. 10.2 fl (6.2-12.0); Monocyte# 0.41 X10^3/uL; Monocyte% 8.6 % (0-10); NRBC Flagged by Analyzer 0 % (0-5); Neutrophil # 2.75 X10^3/uL (2.7-7.7); Neutrophil % 57.7 % (47-70); Platelet Count 362 K/mm3 (150-450); RBC Distribution Width CV 11.9 % (11.6-14.6); RBC Distribution Width SD 38.7 fl (35.1-43.9); Red Blood Count 4.19 M/mm3 (4.2-5.4); White Blood Count 4.8 K/mm3 (4.4-11.0)
[2024-06-23 18:34] LABS: AST(SGOT) 15 U/L (15-37); Alanine Aminotransfer ALT/SGPT 22 U/L (13-56); Albumin, Serum 3.9 g/dL (3.2-5.0); Alkaline Phosphatase 81 U/L (45-117); Anion Gap 8 (5-15); BUN 12 mg/dL (7-18); BUN/Creat Ratio 14.2 RATIO (10-20); Calcium,Total 9.1 mg/dL (8.5-10.1); Chloride 103 mmol/L (98-107); Creatinine, Serum 0.85 mg/dL (0.55-1.02); EST Glomerular Filtration Rate 84 mL/min (>60); Est Glom Filt Rate - Afr Amer 102 mL/min (>60); Ferritin 51 ng/mL (8-252); Globulin 4.1 g/dL (2.2-4.2); Glucose 77 mg/dL (74-106); Iron 90 ug/dL (50-170); Potassium 3.8 mmol/L (3.5-5.1); Sodium Level 136 mmol/L (136-145); T4 Free Direct 1.05 ng/dL (0.76-1.46); Thyroid Stim Hormone (TSH) 0.497 uIU/mL (0.358-3.740)
[2024-06-24 08:42] LABS: Vitamin B12 628 pg/mL (211-911)
== END | disposition home or self-care (01) ==
LOC: BFHLAB 14:17
PROVIDERS: PCP Family Medicine; Referring Provider Family Medicine; Visit Provider Family Medicine
DX: D64.9 Anemia, unspecified (principal); R53.83 Other fatigue
CPT/HCPCS: 36415; 80053; 82306; 82533; 82607; 82728; 83540; 84439; 84443; 85025

== ENCOUNTER → 2024-07-16 | Outpatient (CLI) | payer OTHER, MEDICAID, SELFPAY | END | disposition home or self-care (01) | PROVIDERS: PCP Family Medicine; Referring Provider Nurse Practitioner Women's Health; Visit Provider Nurse Practitioner Women's Health | DX: N89.8 Other specified noninflammatory disorders of vagina (principal) | CPT/HCPCS: 87070; 87205 ==

== ENCOUNTER → 2024-07-23 | Outpatient (CLI) | payer OTHER, MEDICAID, SELFPAY ==
--- NOTE | 2024-07-23 15:49 | RAD_ITS ---
INDICATION: SHORTNESS OF BREATHE EXAMINATION/TECHNIQUE: X-RAY - XR Chest 2 Views COMPARISON: February 08, 2013 FINDINGS: LINES/DEVICES: None. LUNGS: No consolidation, edema or effusion. No pneumothorax. MEDIASTINUM AND CARDIOVASCULAR STRUCTURES: Cardiac silhouette not enlarged. Central airways and mediastinal contour are unremarkable. BONES AND SOFT TISSUES: Unremarkable. RAD/Chest PA and Lateral IMPRESSION: No radiographic evidence of acute cardiopulmonary disease. Electronically Signed: Red Nix DO at 16:13 EDT ,
== END | disposition home or self-care (01) ==
PROVIDERS: PCP Family Medicine; Referring Provider Physician Assistant Surgical; Visit Provider Physician Assistant Surgical
DX: R06.02 Shortness of breath (principal)
CPT/HCPCS: 71046

== ENCOUNTER → 2024-09-24 | Outpatient (CLI) | payer MEDICAID, SELFPAY ==
--- NOTE | 2024-09-24 16:41 | RAD_ITS ---
INDICATION: KUB- STONES EXAMINATION/TECHNIQUE: X-RAY - XR Abdomen 1 View COMPARISON: Prior study dated: Report from 09/24/2012. Images not available. FINDINGS: BOWEL GAS PATTERN: Non-obstructive. No bowel or stomach distention. Moderate colonic stool burden. FREE AIR: Not assessed on a single supine view. ORGANOMEGALY: Not seen. CALCIFICATIONS: There is a 0.6 cm calcification overlying the lower pole of the left kidney. LOWER CHEST: No acute pathology. BONES AND SOFT TISSUES: No acute pathology. Multiple pelvic clips. RAD/Abdomen Single View IMPRESSION: 0.6 cm calcification overlies the lower pole of the left kidney. Electronically Signed: Jared Taylor MD at 23:48 EST ,
== END | disposition home or self-care (01) ==
PROVIDERS: PCP Family Medicine; Referring Provider Urology; Visit Provider Urology
DX: N20.0 Calculus of kidney (principal)
CPT/HCPCS: 74018

== ENCOUNTER 2024-10-15 16:43 | Observation (INO) | payer OTHER, MEDICAID, SELFPAY ==
[2024-10-15 16:44] VITALS: BP 113/70; PULSE 68; RESP 18; TEMP 35.9; O2SAT 99; BMI 33.4
[2024-10-15 17:20] LABS: Mucous, Urine 0 SEEN /hpf (<or=2+); Red Blood Cells-Urine 0 SEEN /hpf (0-5); White Blood Cells 0 SEEN /hpf (0-5)
[2024-10-15 17:21] LABS: Color, Urine Yellow (Yellow); Glucose, Dipstick Normal (Normal); Ketone-Dipstick Negative (Negative); Leukocyte Esterase-Dipstick Negative /ul (Negative); Nitrite-Dipstick Negative (Negative); Occult Blood-Urine Negative /ul (Negative); Protein-Dipstick Negative (Negative); Specific Gravity, Urine 1.015 (1.002-1.030); Urine Bilirubin Dipstick Negative (Negative); Urine Clarity Clear (Clear); Urine Urobilinogen Normal (Normal)
[2024-10-15 17:28] LABS: Bacteria RARE /hpf (None Seen); Squamous Epithelial Cells - UA 0-5 SEEN /hpf (5-10)
--- NOTE | 2024-10-15 17:36 | EDS_ITS ---
HPI History of Present Illness Chief Complaint: Flank Pain Narrative Narrative: 29-year-old female past medical history of kidney stones presents at the recommendation of her urologist, Dr. Rodriguez, for pain control. She relates history that her first kidney stone was probably 3 months ago. She is now currently dealing with left-sided 8 mm stone in her ureter, and she also has stones in her bladder as well as her right kidney. She states that she was supposed to have lithotripsy and cystoscopy performed by her urologist on the but they moved up to tomorrow, October 16. She was taking Toradol at home which was not helping. She was also taking Percocet and ibuprofen which was not helping as well. She states that she called her urologist today and was told to come to the emergency department for pain control and if needed, admission for surgery tomorrow. Patient denies any exacerbating or alleviating factors. No fevers or chills, no vomiting. No hematuria. She states she is currently being treated for urinary tract infection. 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 , currently Genital herpes OCD (obsessive compulsive disorder) Anxiety Home Medications ?Medication ?Instructions ?Recorded ?Last Taken ?Type citalopram 20 mg tablet 20 mg PO DAILY 10/31/19 03/01/21 10:00 History 20 mg acyclovir 400 mg tablet See Rx Instructions .Route 05/26/24 Unknown Rx .COMPLEX #60 tabs bupropion HCl 150 mg tablet,12 hr 150 mg PO QDAY 07/16/24 Unknown History sustained-release (Wellbutrin SR) metronidazole 0.75 % (37.5 mg/5 1 appful vaginal .COMPLEX #70 grams 07/16/24 Unknown Rx gram) vaginal gel ciprofloxacin HCl 250 mg tablet 250 mg PO BID 10/14/24 Unknown History (Cipro) lorazepam 1 mg tablet 1 mg PO BID PRN PRN chronic pain 10/14/24 Unknown History spironolactone 100 mg tablet 100 mg PO DAILY 10/14/24 Unknown History Allergy/AdvReac Type Severity Reaction Status Date / Time amoxicillin (Amoxicillin) Allergy Rash Verified 10/15/24 16:44 Penicillins Allergy Rash Verified 10/15/24 16:44 Surgical History H/O foot surgery H/O dilation and curettage Social History adopted: No household members: family housing: house number of children: 3 current occupational status: employed current occupation: [employer] pets and animals: Yes Smoking Status: Current every day smoker tobacco type: cigarettes second hand exposure: No alcohol intake: current details: social- not while substance use type: does not use seatbelt use: always do you feel safe at home: Yes additional social history: Spouse: Ashon- student ([employer]- 6, [place]-11) ROS ROS ED ROS Narrative Constitutional: No fever, no chills. HEENT: No sore throat. No neck pain. No loss of vision. No rhinorrhea. Cardiovascular: No chest pain. No palpitations. No pedal edema. Respiratory: No cough, no shortness of breath. Abdominal: No abdominal pain. Positive nausea. No vomiting. Genitourinary: No dysuria. No hematuria. Bilateral flank pain, but left greater than right. Musculoskeletal: No myalgias. No arthralgias. Neurologic: No headaches. No dizziness. No lightheadedness. Skin: No rash. No change in color. Psychiatric: No depression. No anxiety. EXAM Physical Exam Narrative Exam Narrative: Afebrile. Vital signs noted. Nontoxic-appearing. Cardiovascular examination reveals a regular rate and rhythm. Lungs are clear to auscultation bilaterally. Abdomen is soft and nontender with normoactive bowel sounds. Positive tenderness to percussion left flank. No guarding or rebound of the abdomen. Neurological examination nonfocal and nonlateralizing. Const Vital Signs: 10/15/24 16:44 10/15/24 18:43 10/15/24 18:53 Temperature 96.7 F L Temperature Source Temporal Pulse Rate 68 70 Respiratory Rate 18 18 Blood Pressure 113/70 123/81 H Blood Pressure Mean 84 95 Pulse Ox 99 99 Oxygen Delivery Method Room Air Room Air MDM MDM MDM Narrative Medical decision making narrative: Patient states she is having extreme pain in the left flank. She has not had fevers or chills. Differential diagnosis includes ureteral colic from large ureteral lithiasis versus pyelonephritis versus musculoskeletal pain. Urinalysis was obtained and reviewed and she has 0 WBCs and 0 RBCs. Given that she has a reported 8 mm stone in the left flank/ureter she was given Toradol and morphine and IV was placed. I will check a CBC and a BMP to check her kidney function and ensure she does not have elevated white count. She is not meeting any SIRS criteria currently. I reviewed her laboratory work and she has normal white count of 6.9 with hemoglobin normal at 13.1, platelet count normal at 317. BMP is grossly unremarkable with a BUN of 11 and creatinine normal at 0.90. Urinalysis is negative for infection but she states she is currently taking Cipro for an infection. She received 2 doses of morphine and 2 doses of Toradol at 15 mg each. She states she still having pain. However on repeat examination, she is using her cellular telephone and eating candy. She states that the medications take the edge off of her pain, but it is more intractable and has been increasing. I discussed the patient with Dr. Rodriguez who states that she is scheduled for lithotripsy and cystoscopy tomorrow, so she will place her on observation prior to her surgery. Disposition is assigned observation. Patient is in stable condition. History & Record Review Discussion w/independent historian: Patient Lab Data Attestation: I reviewed the patient's lab results. Labs: Laboratory Results - last 24 hr 10/15/24 10/15/24 17:09 17:50 WBC 6.9 RBC 4.36 Hgb 13.1 Hct 37.9 MCV 86.9 MCH 30.0 MCHC 34.6 RDW Std Deviation 37.4 RDW Coeff of Dilan 11.7 Plt Count 317 MPV 10.0 Immature Gran % (Auto) 0.300 Neut % (Auto) 53.8 Lymph % (Auto) 32.7 [place] % (Auto) 11.4 H Eos % (Auto) 1.5 Baso % (Auto) 0.3 Absolute Neuts (auto) 3.7 Absolute Lymphs (auto) 2.24 Nucleated RBC % 0 Sodium 138 Potassium 3.8 Chloride 103 Carbon Dioxide 29.0 Anion Gap 6 BUN 11 Creatinine 0.90 Estim Creat Clear Calc 113.94 Est GFR (MDRD) Af Amer 95 Est GFR (MDRD) Non-Af 79 BUN/Creatinine Ratio 12.3 Glucose 87 Calcium 9.0 Urine Color Yellow Urine Clarity Clear Urine pH 6.0 Ur Specific [place] 1.015 Urine Protein Negative Urine Glucose (UA) Normal Urine Ketones Negative Urine Occult Blood Negative Urine Nitrite Negative Urine Bilirubin Negative Urine Urobilinogen Normal Ur Leukocyte Esterase Negative Urine RBC 0 SEEN Urine WBC 0 SEEN Ur Squamous Epith Cells 0-5 SEEN Urine Bacteria RARE Urine Mucus 0 SEEN Management Discussion w/another healthcare provider: Temperature Logging Operator (Urology) Discharge Plan Dx/Rx/DC Orders Clinical Impression: Intractable pain, Flank pain, Ureterolithiasis Disposition Disposition: Acute Care Hospital [facility]
[2024-10-15 17:58] LABS: Absolute Lymphocyte Count 2.24 X10^3/uL (0.83-4.51); Absolute Neutrophil Count 3.7 X10^3/uL (2.0-7.7); Basophil# 0.02 X10^3/uL; Basophil% 0.3 % (0-1); Eosinophils% 1.5 % (0-5); Hematocrit 37.9 % (37-47); Hemoglobin 13.1 g/dL (12.0-15.0); Lymphocyte # 2.24 X10^3/ul (0.83-4.51); Lymphocyte % 32.7 % (19-41); Mean Corp Hgb Conc 34.6 g/dL (32-36); Mean Corpuscular Volume 86.9 fL (81-99); Monocyte# 0.78 X10^3/uL; Monocyte% 11.4 % (0-10); NRBC Flagged by Analyzer 0 % (0-5); Neutrophil % 53.8 % (47-70); Platelet Count 317 K/mm3 (150-450); RBC Distribution Width CV 11.7 % (11.6-14.6); RBC Distribution Width SD 37.4 fl (35.1-43.9); Red Blood Count 4.36 M/mm3 (4.2-5.4); White Blood Count 6.9 K/mm3 (4.4-11.0)
[2024-10-15] MEDS: Morphine 4 MG/ML Syringe IV ×2 (17:59→19:37)
[2024-10-15] MEDS: Ketorolac 15 MG/ML Vial IV ×3 (17:59→22:20)
[2024-10-15 18:10] LABS: Anion Gap 6 (5-15); BUN 11 mg/dL (7-18); BUN/Creat Ratio 12.3 RATIO (10-20); Chloride 103 mmol/L (98-107); EST Glomerular Filtration Rate 79 mL/min (>60); Est Glom Filt Rate - Afr Amer 95 mL/min (>60); Estimated Creatinine Clearance 113.94 ml/min; Glucose 87 mg/dL (74-106); Potassium 3.8 mmol/L (3.5-5.1); Sodium Level 138 mmol/L (136-145)
[2024-10-15 18:43] VITALS: PULSE 70; RESP 18; O2SAT 99
[2024-10-15 18:53] VITALS: BP 123/81
[2024-10-15 20:00] VITALS: BP 115/73; O2SAT 97
[2024-10-15] MEDS: HYDROmorphone 0.5 MG/0.5 ML SYRINGE IV (20:31)
[2024-10-15 20:33] VITALS: BP 115/73; PULSE 79; RESP 18; TEMP 36.6; O2SAT 98
[2024-10-15 21:14] VITALS: BMI 32.4
[2024-10-15] MEDS: Morphine 2 MG/ML Syringe IV (21:33)
[2024-10-15 22:00] VITALS: BP 104/55; PULSE 73; RESP 17; TEMP 36.6; O2SAT 99
[2024-10-15] MEDS: Acyclovir 200 MG Capsule 400 MG PO (22:19)
[2024-10-15] MEDS: Ciprofloxacin 250 MG Tablet PO (22:19)
[2024-10-15] MEDS: LORazepam 1 MG Tablet PO (22:19)
[2024-10-15] MEDS: Acetaminophen 500 MG Tablet 1000 MG PO (22:19)
[2024-10-15] MEDS: MELATONIN 3 MG TABLET PO (22:19)
[2024-10-15] MEDS: 0.9% Saline Lock 10 ML Syringe IV (22:20)
[2024-10-15] MEDS: oxyCODONE 5 MG Tablet 10 MG PO (23:37)
[2024-10-16] VITALS (14 sets, daily range): BP systolic 102–127; BP diastolic 47–79; PULSE 58–84; RESP 16–18; TEMP 36.1–37.1; O2SAT 92–100; BMI 32.4
[2024-10-16] MEDS: Morphine 2 MG/ML Syringe IV (00:54)
[2024-10-16] MEDS: 0.9% Saline Lock 10 ML Syringe IV ×3 (00:54→08:06)
[2024-10-16] MEDS: Morphine 4 MG/ML Syringe IV ×3 (04:54→14:33)
--- NOTE | 2024-10-16 05:55 | NURSING ---
Michell in ac notified that the pt was admitted here in rrom 305
[2024-10-16] MEDS: Ciprofloxacin 400 MG/200 ML BAG 200 MG IV (09:15)
[2024-10-16] MEDS: 0.9% Normal Saline (1000mL) 1,000 ML 15 ML IV (09:47)
--- NOTE | 2024-10-16 09:48 | PCM.PRE.AN2 ---
ASA Classification* ASA Classification ASA Classification: 2 Assessment & Plan Anesthesia* Anesthesia Assessment Anesthesia Assessment: Discussed sedation and/or anesthesia options, risks, benefits, and alternatives with patient/parents/legal guardian/POA. Questions invited. The patient/parents/legal guardian/POA seems to understand and agrees to proceed with anesthesia plan. Reviewed the physical assessment, medical history, allergy history and patient home medications list prior to surgery/procedure/anesthetic and documented any changes. Performed airway and anesthesia risk assessments. Anesthesia Type Anesthesia Type: General History Source History Obtained from:: Patient and Chart Anesthesia Focused Assessment* Temperature: 97.9 F Pulse Rate: 73 Blood Pressure: 114/65 Respiratory Rate: 18 Pulse Ox: 100 Oxygen Delivery Method: Room Air Airway Assessment Mouth opens: >3 cm Mallampati Score: II Teeth Condition: Intact and Missing (1 missing molar left lower. Remaining teeth are tight.) Neck Range of motion (ROM): Full ROM Focused Labs Anesthesia Preop lab: CBC WBC 6.9 K/mm3 (4.4-11.0) 10/15/24 17:50 RBC 4.36 M/mm3 (4.2-5.4) 10/15/24 17:50 Hgb 13.1 g/dL (12.0-15.0) 10/15/24 17:50 Hct 37.9 % (37-47) 10/15/24 17:50 Plt Count 317 K/mm3 (150-450) 10/15/24 17:50 CHEMISTRY Potassium 3.8 mmol/L (3.5-5.1) 10/15/24 17:50 Sodium 138 mmol/L (136-145) 10/15/24 17:50 BUN 11 mg/dL (7-18) 10/15/24 17:50 Creatinine 0.90 mg/dL (0.55-1.02) 10/15/24 17:50 Glucose 87 mg/dL (74-106) 10/15/24 17:50 TSH 0.497 uIU/mL (0.358-3.740) 06/23/24 14:18 COAG HCG, Quant 9361 mIU/mL (1-3) H 09/21/20 13:15 Urine Test Positive Negative H 07/11/19 08:20 Tst Clinic Negative 06/22/22 09:00 Pre-Assessment Diagnosis/Proposed Procedure Planned Operative Procedure(s): Cystoscopy. Extracorporeal shockwave lithotripsy. left Anesthesia History Anesthesia History - manager of allied health services: Anesthesia History - manager of allied health services Hx Hospitalization No 10/14/24 10:47 Any Problems With Anesthesia No 10/15/24 21:21 Cholinesterase deficiency No 10/15/24 21:21 You/Your Family Experience No 10/15/24 21:21 fever (hyperthermia) with Relationship Recent Exposure to Contagious No 10/15/24 21:21 Disease Does patient have nerve No 10/15/24 21:21 stimulator Patient instructed to have No 10/15/24 21:21 device shut off --Does patient have Pacemaker No 10/16/24 08:00 or ICD? When Was Last Pacemaker Check QUESTION #4 FULL TEXT: You/Your Family Experience fever (hyperthermia) with Anesthesia Last Oral Intake Last Oral intake: Last Oral Intake NPO since 00:00 10/16/24 08:00 Meds taken in AM with sips of No 10/16/24 08:00 water? Meds patient instructed to take am of surgery PONV PONV - manager of allied health services: PONV - manager of allied health services Female HX of Motion Sickness HX of N/V After Surgery Non-Smoker Duration of Surgery greater than 60 minutes Number of Risk Factors PONV Score Height & Weight Height & Weight: Anesthesia: Height & Weight Height 5 ft 9 in 10/16/24 08:00 Weight: 99.6 kg 10/16/24 08:00 Body Mass Index (BMI) 32.4 10/16/24 08:00 Respiratory Assessment Respiratory Assessment - manager of allied health services: Respiratory Tract Infection Hx - manager of allied health services Hx Respiratory Tract Infection No 10/15/24 21:21 STOP Sleep Apnea STOP Sleep Apnea - manager of allied health services: STOP Sleep Apnea - manager of allied health services Hx Hypertension No 10/15/24 21:16 Hx Sleep Apnea No 10/15/24 21:16 CPAP BIPAP Do you snore loudly (louder No 10/15/24 21:16 than talking or can be heard Do you often feel tired/ No 10/15/24 21:16 fatigued/ sleepy during daytime? Has anyone observed you stop No 10/15/24 21:16 breathing during sleep? STOP Results Negative 10/15/24 21:16 QUESTION #5 FULL TEXT : Do you snore loudly (louder than talking or can be heard through closed doors)? 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 Specify any problems Hx of Preganancy in last 3 No 10/15/24 21:16 Months Nurse Filling Out Transfusion DREDICK 10/15/24 21:16 & Questions: Date: 10/15/24 10/15/24 21:16 Time: 21:16 10/15/24 21:16 Patient unable to answer at this time (ie. confused, unrespo /Reproduction History /Reproductive History - manager of allied health services: /Reproductive Hx- manager of allied health services Hx Now No 10/15/24 21:21 Gestational Age (in weeks): EDC: Hx Hx Para Hx Section SAB No 10/15/24 21:21 Active Medications Active Medications: Current Medications Generic Name Dose Route Start Last Admin Trade Name Freq PRN Reason Stop Dose Admin Acetaminophen 1,000 mg 10/15/24 22:00 10/15/24 23:24 Acetaminophen 500 Mg Tablet PO Not Given Q8 JANESSA Acyclovir 400 mg 10/15/24 22:00 10/15/24 22:19 Acyclovir 200 Mg Capsule PO 400 mg BID JANESSA Administration Al Hydroxide/Mg Hydroxide 30 ml 10/15/24 21:11 Mag Hydrox/Al Hydrox/Simeth 30 Ml Udc PO Q6H PRN PRN Gastric Burning Bupropion HCl 150 mg 10/16/24 10:00 Bupropion (Sr) 150 Mg Tablet.Sa PO DAILY JANESSA Ciprofloxacin HCl 250 mg 10/15/24 22:00 10/15/24 22:19 Ciprofloxacin 250 Mg Tablet PO 250 mg BID JANESSA Administration Citalopram Hydrobromide 20 mg 10/16/24 10:00 Citalopram 20 Mg Tablet PO DAILY JANESSA Sodium Chloride 100 mls @ 15 mls/hr 10/15/24 21:09 IV .Q6H40M PRN Saline Flush Sodium Chloride 100 mls @ 15 mls/hr 10/15/24 21:09 IV .Q6H40M PRN Additional IVPB Infusion Sodium Chloride 1,000 mls @ 15 mls/hr 10/16/24 09:45 10/16/24 09:47 IV 10/19/24 04:24 15 mls/hr .Q48H JANESSA Administration Protocol Ketorolac Tromethamine 15 mg 10/15/24 21:11 10/15/24 22:20 Ketorolac 15 Mg/Ml Vial IV 10/19/24 21:12 15 mg Q8H PRN PRN Administration Pain Score 1-10 Lorazepam 1 mg 10/15/24 21:15 10/15/24 22:19 Lorazepam 1 Mg Tablet PO 1 mg BID PRN PRN Administration Anxiety d/t chronic pain Melatonin 3 mg 10/15/24 21:11 10/15/24 22:19 Melatonin 3 Mg Tablet PO 3 mg QHS PRN PRN Administration INSOMNIA Morphine Sulfate 2 - 4 mg 10/15/24 21:11 10/16/24 00:54 Morphine 2 Mg/Ml Syringe IV 4 mg Q3H PRN PRN Administration Pain Score 6-10 Morphine Sulfate 2 - 4 mg 10/15/24 21:27 10/16/24 08:06 Morphine 4 Mg/Ml Syringe IV 4 mg Q3H PRN PRN Administration Pain Score 6-10 Ondansetron HCl 4 mg 10/15/24 21:11 Ondansetron 4 Mg/2 Ml Vial IV Q8H PRN PRN NAUSEA/VOMITING Oxycodone HCl 10 mg 10/15/24 21:11 10/15/24 23:37 Oxycodone 5 Mg Tablet PO 10 mg Q4H PRN PRN Administration Pain Score 4-10 Prochlorperazine Edisylate 5 mg 10/15/24 21:11 Prochlorperazine 10 Mg/2 Ml Vial IV Q4H PRN PRN Breakthrough nausea/vomiting Sodium Chloride 10 - 40 ml 10/15/24 21:09 10/16/24 08:06 0.9% Saline Lock 10 Ml Syringe IV 10 ml UD PRN Administration SALINE FLUSH Spironolactone 100 mg 10/16/24 10:00 Spironolactone 50 Mg Tablet PO DAILY [facility] Medical History Depression Kidney stones Back pain Gastric reflux Smoker delivery delivered Sterilization H/O shoulder dystocia in prior , currently 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 , currently Genital herpes OCD (obsessive compulsive disorder) Anxiety Home Medications ?Medication ?Instructions ?Recorded ?Last Taken ?Type citalopram 20 mg tablet 20 mg PO DAILY depression 10/31/19 03/01/21 10:00 History 20 mg acyclovir 400 mg tablet See Rx Instructions .Route 05/26/24 Unknown Rx .COMPLEX herpes #60 tabs bupropion HCl 150 mg tablet,12 hr 150 mg PO QDAY depression 07/16/24 Unknown History sustained-release (Wellbutrin SR) ciprofloxacin HCl 250 mg tablet 250 mg PO BID atb 10/14/24 Unknown History (Cipro) lorazepam 1 mg tablet 1 mg PO BID PRN PRN anxiety 10/14/24 Unknown History spironolactone 100 mg tablet 100 mg PO DAILY acne 10/14/24 Unknown History Allergy/AdvReac Type Severity Reaction Status Date / Time amoxicillin (Amoxicillin) Allergy Rash Verified 10/15/24 16:44 Penicillins Allergy Rash Verified 10/15/24 16:44 Surgical History H/O foot surgery H/O dilation and curettage Social History adopted: No household members: family housing: house number of children: 3 current occupational status: employed current occupation: [employer] pets and animals: Yes Smoking Status: Current every day smoker tobacco type: cigarettes second hand exposure: No alcohol intake: current details: social- not while substance use type: does not use seatbelt use: always do you feel safe at home: Yes additional social history: Spouse: Ashon- student ([employer]- 6, Ashon-11) Review of Systems (Anesthesia) ROS Narrative System reviewed and no additional complaints, except as documented.
--- NOTE | 2024-10-16 10:15 | HP.PCM_ITS ---
HPI - General General Date of Admission: 10/15/24 Date of Service: 10/16/24 Chief Complaint: Left flank pain, nausea HPI Narrative RACHELLE JACKSON, is a 29 F with a 8 mm left renal stone who presented to the emergency room yesterday with uncontrolled left flank pain and nausea. She denies fever, chills and vomiting. There is no evidence of urinary tract infection with no dysuria, urgency, frequency. She is already on the schedule for shockwave lithotripsy today and agrees to proceed. Informed consent has been obtained. She is continuing to have pain at this time as well as nausea. [facility] Medical History (Updated 10/16/24 @ 10:[address] 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 , currently Genital herpes OCD (obsessive compulsive disorder) Anxiety Home Medications ?Medication ?Instructions ?Recorded ?Last Taken ?Type citalopram 20 mg tablet 20 mg PO DAILY depression 10/31/19 03/01/21 10:00 History 20 mg acyclovir 400 mg tablet See Rx Instructions .Route 05/26/24 Unknown Rx .COMPLEX herpes #60 tabs bupropion HCl 150 mg tablet,12 hr 150 mg PO QDAY depression 07/16/24 Unknown History sustained-release (Wellbutrin SR) ciprofloxacin HCl 250 mg tablet 250 mg PO BID atb 10/14/24 Unknown History (Cipro) lorazepam 1 mg tablet 1 mg PO BID PRN PRN anxiety 10/14/24 Unknown History spironolactone 100 mg tablet 100 mg PO DAILY acne 10/14/24 Unknown History Allergy/AdvReac Type Severity Reaction Status Date / Time amoxicillin (Amoxicillin) Allergy Rash Verified 10/15/24 16:44 Penicillins Allergy Rash Verified 10/15/24 16:44 Surgical History H/O foot surgery H/O dilation and curettage Social History adopted: No household members: family housing: house number of children: 3 current occupational status: employed current occupation: [employer] pets and animals: Yes Smoking Status: Current every day smoker tobacco type: cigarettes second hand exposure: No alcohol intake: current details: social- not while substance use type: does not use seatbelt use: always do you feel safe at home: Yes additional social history: Spouse: Ashon- student ([employer]- 6, Wes-11) ROS Constitutional Constitutional: Denies body ache(s), chills or fever(s) Eyes Eyes: Reports systems reviewed and no addt'l complaints, except as documented ENT HEENT: Reports systems reviewed and no addt'l complaints, except as documented Cardiovascular Cardiovascular: Reports systems reviewed and no addt'l complaints, except as documented and nausea; Denies abdominal pain, chest pain or vomiting Respiratory/Chest Respiratory/Chest: Reports systems reviewed and no addt'l complaints, except as documented; Denies chest tightness, cough or dyspnea Gastrointestinal Gastrointestinal: Reports nausea; Denies abdominal pain or vomiting Genitourinary Genitourinary: Reports flank pain; Denies difficulty urinating, dysuria or urinary urgency Musculoskeletal Musculoskeletal: Reports back pain Integumentary Integumentary: Reports systems reviewed and no addt'l complaints, except as documented Neurologic Neurologic: Reports systems reviewed and no addt'l complaints, except as documented Psychiatric Psychiatric: Reports systems reviewed and no addt'l complaints, except as documented Endocrine Endocrinology: Reports systems reviewed and no addt'l complaints, except as documented Hematologic/Lymphatic Hematologic/Lymphatic: Reports systems reviewed and no addt'l complaints, except as documented Allergic/Immunologic Allergic/Immunologic: Reports systems reviewed and no addt'l complaints, except as documented Vital Signs Vital Signs Vital Signs: 10/15/24 16:44 10/15/24 18:43 10/15/24 18:53 Temperature 96.7 F L Temperature Source Temporal Pulse Rate 68 70 Pulse Strength Respiratory Rate 18 18 Respiratory Effort Respiratory Depth Respiratory Pattern Blood Pressure 113/70 123/81 H Blood Pressure Mean 84 95 Blood Pressure Source Blood Pressure Position Blood Pressure Location Pulse Ox 99 99 Oxygen Delivery Method Room Air Room Air 10/15/24 20:00 10/15/24 20:33 10/15/24 21:20 Temperature 98 F Temperature Source Pulse Rate 79 Pulse Strength Normal (2+) Respiratory Rate 18 Respiratory Effort Respiratory Depth Respiratory Pattern Blood Pressure 115/73 115/73 Blood Pressure Mean 87 87 Blood Pressure Source Blood Pressure Position Blood Pressure Location Pulse Ox 97 98 Oxygen Delivery Method 10/15/24 22:00 10/16/24 04:59 10/16/24 08:00 Temperature 97.8 F 98.7 F 97.9 F Temperature Source Oral Oral Oral Pulse Rate 73 68 73 Pulse Strength Respiratory Rate 17 18 18 Respiratory Effort Respiratory Depth Respiratory Pattern Blood Pressure 104/55 L 102/47 L 114/65 Blood Pressure Mean 71 65 81 Blood Pressure Source Monitor Monitor Monitor Blood Pressure Position Semi-Fowlers Semi-Fowlers Semi-Fowlers Blood Pressure Location Left Arm Right Arm Right Arm Pulse Ox 99 98 100 Oxygen Delivery Method Room Air Room Air Room Air 10/16/24 08:08 10/16/24 09:56 Temperature 97.9 F Temperature Source Pulse Rate 73 Pulse Strength Respiratory Rate 18 Respiratory Effort Normal Respiratory Depth Normal Respiratory Pattern Normal Blood Pressure 114/65 Blood Pressure Mean Blood Pressure Source Blood Pressure Position Blood Pressure Location Pulse Ox 100 Oxygen Delivery Method Room Air Room Air Weight Weight: 99.6 kg Body Mass Index (BMI) 32.4 Physical Exam Const alert and oriented x3 General Appearance: cooperative, well kempt and well developed HEENT normocephalic, head/scalp atraumatic, hearing grossly normal bilaterally, external ears normal, external nose normal and moist oral mucous membranes Eyes General Eye: normal appearance of both eyes Neck supple General: normal visual inspection and trachea midline Lymph Lymphatic: no lymphedema noted Chest inspection of chest normal Chest: symmetrical chest wall rise Resp normal respiratory effort, normal air movement, no retractions and no use of accessory muscles Cardio regular rate GI soft to palpation, non-tender and non-distended Bladder / Kidney Exam: CVA tenderness left Back/Spine General Back: CVA tenderness left Extremity normal to inspection Skin no rashes or lesions noted, no jaundice, no petechiae and no mottling Neuro oriented x3, CN's II-XII intact bilaterally and moves all extremities Psych mental status grossly normal and thought process normal Results Lab / Micro Data 10/15/24 17:50 10/15/24 17:50 Labs: Laboratory Results - last 24 hr 10/15/24 17:09: Urine Color Yellow, Urine Clarity Clear, Urine pH 6.0, Ur Specific [place] 1.015, Urine Protein Negative, Urine Glucose (UA) Normal, Urine Ketones Negative, Urine Occult Blood Negative, Urine Nitrite Negative, Urine Bilirubin Negative, Urine Urobilinogen Normal, Ur Leukocyte Esterase Negative, Urine RBC 0 SEEN, Urine WBC 0 SEEN, Ur Squamous Epith Cells 0-5 SEEN, Urine Bacteria RARE, Urine Mucus 0 SEEN 10/15/24 17:50: WBC 6.9, RBC 4.36, Hgb 13.1, Hct 37.9, MCV 86.9, MCH 30.0, MCHC 34.6, RDW Std Deviation 37.4, RDW Coeff of Dilan 11.7, Plt Count 317, MPV 10.0, Immature Gran % (Auto) 0.300, Neut % (Auto) 53.8, Lymph % (Auto) 32.7, [place] % (Auto) 11.4 H, Eos % (Auto) 1.5, Baso % (Auto) 0.3, Absolute Neuts (auto) 3.7, Absolute Lymphs (auto) 2.24, Nucleated RBC % 0, Sodium 138, Potassium 3.8, Chloride 103, Carbon Dioxide 29.0, Anion Gap 6, BUN 11, Creatinine 0.90, Estim Creat Clear Calc 113.94, Est GFR (MDRD) Af Amer 95, Est GFR (MDRD) Non-Af 79, BUN/Creatinine Ratio 12.3, Glucose 87, Calcium 9.0 Assessment & Plan Assessment/Plan (1) Flank pain: PLAN: Plan Continue with plans for cystoscopy and left renal extracorporal shockwave lithotripsy under anesthesia today Plan for discharge after surgical intervention.
--- NOTE | 2024-10-16 10:19 | DCINST_ITS ---
Discharge Instructions Diet Discharge Diet: No restrictions Activity Discharge Activity: Return to Normal Activity Dressing / Incision Call your doctor if you observe: Fever of 101 or Higher, Inability to urinate and Inability to have a bowel movement Follow Up Care Please Follow Up With: Brittany Rodriguez MD When: In 2-3 weeks with KUB. Test Results: Test results from this visit will be discussed in further detail at your follow- up appointment, if applicable. Discharge Plan Admission Admit Date/Time: 10/15/24 21:11 Attending Provider: Brittany Rodriguez Primary Care Provider: Blas Woodson Discharge Orders/Prescriptions Prescriptions: New ondansetron 8 mg tablet,disintegrating 8 mg PO Q8H PRN (Reason: nausea and vomiting) Qty: 10 0RF oxycodone-acetaminophen 5-325 mg tablet 1 tab PO Q8H PRN (Reason: pain) 3 Days Qty: 10 0RF Continued bupropion HCl [Wellbutrin SR] 150 mg tablet sustained-release 12 hr 150 mg PO QDAY citalopram 20 MG tablet 20 mg PO DAILY spironolactone 100 mg tablet 100 mg PO DAILY lorazepam 1 mg tablet 1 mg PO BID PRN PRN (Reason: anxiety) ciprofloxacin HCl [Cipro] 250 mg tablet 250 mg PO BID acyclovir 400 mg tablet See Rx Instructions .ROUTE .COMPLEX Qty: 60 3RF Dose Instruction: take 1 tablet by mouth twice a day Rx Instructions: take 1 tablet by mouth twice a day Referrals / Follow Up: Blas Woodson DO [Primary Care Provider] - Disposition Disposition (needs filled in before D/C Order can be placed): Home, Self Care
--- NOTE | 2024-10-16 11:38 | OP.PCM_ITS ---
Operative Report (Standard) Operative Information Date of Procedure: 10/16/24 Pre-Operative Diagnosis: Left renal stone, urinary tract infections Post-Operative Diagnosis: Same Surgery/Procedure Performed: Cystoscopy, left renal extracorporeal shockwave lithotripsy polysomnography technician: No Type of Anesthesia: General RN Documented Start/Stop Times: Operation Date: 10/16/24 10:10 Case Time Into Pre-Op 10/16/24 09:15 Out of Pre-Op 10/16/24 11:09 Anesthesia Start 10/16/24 11:14 Into Room 10/16/24 11:14 Procedure Start 10/16/24 11:26 Procedure Start Time: : Procedure Stop Time: 12:05 Select all DRAINS/GRAFTS/IMPLANTS that apply: None Estimated Blood Loss: <5cc Specimen collected: No Description of surgery: The patient is a 29-year-old female with a left renal calculus who presents for shockwave lithotripsy and evaluation with cystoscopy for urinary tract infections. Informed consent was obtained. She was taken to the operating room and placed on the lithotripsy table. Anesthesia monitored the head, neck, airway, IV access and vital signs throughout the case. Once anesthesia was appropriately administered, she was positioned into dorsolithotomy and was prepped and draped in usual sterile fashion. The cystoscope was inserted through the urethra under direct visualization into the urinary bladder. The bladder mucosa in its entirety was evaluated with direct visualization revealing no evidence of mass, erythema, ulceration or foreign body. The cystoscope was then removed. The patient was repositioned on the table. Her 8 mm stone was clearly visible. It was broken into fragments using 3000 shockwaves. At the end of the case the stone appeared to be well fragmented. She was awakened and taken the recovery room in good condition. There were no complications during the procedure. Surgical Findings: Single 8 mm left renal stone easily identified. Normal cystoscopy. Complications Complications: No Admit VTE Documentation VTE Present on Admission: Yes VTE Mechan Device Prophylaxis: SCD's VTE Pharm Prophylaxis ordered?: No Reason prophylaxis not ordered: Treatment Not Indicated
--- NOTE | 2024-10-16 12:16 | POSTOPAN2_ITS ---
Anesthesia Postop Eval I Sum Postop Eval Completion status Anesthesia document: Postop Eval 1 completed: Yes Anesthesia Postop Eval I Summary Anesthesia Postop Eval I Summary: Anesthesia Postop Eval I: Assessment Summary Airway patent Yes 10/16/24 12:16 ACCOUNTS PAYABLE SUPERVISOR.MDOT Spontaneous unlabored Yes 10/16/24 12:16 ACCOUNTS PAYABLE SUPERVISOR.MDOT respirations Mental status Awake 10/16/24 12:16 ACCOUNTS PAYABLE SUPERVISOR.MDOT nausea No 10/16/24 12:16 ACCOUNTS PAYABLE SUPERVISOR.MDOT Vomiting No 10/16/24 12:16 ACCOUNTS PAYABLE SUPERVISOR.MDOT Anesthesia Postop Eval I: Fluid Summary Crystalloid volume administer 700 10/16/24 12:16 ACCOUNTS PAYABLE SUPERVISOR.MDOT (ml) Colloids volume administered ( ml) Blood Product volume administered (ml) Total IV fluid infused 700 10/16/24 12:16 ACCOUNTS PAYABLE SUPERVISOR.MDOT Anesthesia Postop Eval I: Summary Notes Anesthesia Complication No 10/16/24 12:16 ACCOUNTS PAYABLE SUPERVISOR.MDOT Anesthesia Complication Comment: Post-operative progress note Anesthesia: Postop Eval II Evaluation Mental status: Awake and Calm Pain Level: 3 nausea: No Vomiting: No Complications Anesthesia Complication: No
--- NOTE | 2024-10-16 12:16 | PCM.POST.ANE ---
Anesthesia: Postop Eval I Current Vital Signs Temperature: 97 F Pulse Rate: 65 Blood Pressure: 126/76 Respiratory Rate: 16 Pulse Ox: 100 Oxygen Delivery Method: Room Air Assessment Airway patent: Yes Spontaneous unlabored respirations: Yes Mental status: Awake nausea: No Vomiting: No Anesthesia Complication: No Fluid Hydration Crystalloid volume administer (ml): 700 Total IV fluid infused: 700 Progress Note Anesthesia document: Postop Eval 1 completed: Yes
--- NOTE | 2024-10-16 12:16 | PCM.POSTANE2 ---
Anesthesia Postop Eval I Sum Postop Eval Completion status Anesthesia document: Postop Eval 1 completed: Yes Anesthesia Postop Eval I Summary Anesthesia Postop Eval I Summary: Anesthesia Postop Eval I: Assessment Summary Airway patent Yes 10/16/24 12:16 SUPERVISOR ADULT EDUCATION.MDOT Spontaneous unlabored Yes 10/16/24 12:16 SUPERVISOR ADULT EDUCATION.MDOT respirations Mental status Awake 10/16/24 12:16 SUPERVISOR ADULT EDUCATION.MDOT nausea No 10/16/24 12:16 SUPERVISOR ADULT EDUCATION.MDOT Vomiting No 10/16/24 12:16 SUPERVISOR ADULT EDUCATION.MDOT Anesthesia Postop Eval I: Fluid Summary Crystalloid volume administer 700 10/16/24 12:16 SUPERVISOR ADULT EDUCATION.MDOT (ml) Colloids volume administered ( ml) Blood Product volume administered (ml) Total IV fluid infused 700 10/16/24 12:16 SUPERVISOR ADULT EDUCATION.MDOT Anesthesia Postop Eval I: Summary Notes Anesthesia Complication No 10/16/24 12:16 SUPERVISOR ADULT EDUCATION.MDOT Anesthesia Complication Comment: Post-operative progress note Anesthesia: Postop Eval II Evaluation Mental status: Awake and Calm Pain Level: 3 nausea: No Vomiting: No Complications Anesthesia Complication: No
--- NOTE | 2024-10-16 15:01 | POSTOPAN2_ITS ---
Anesthesia Postop Eval I Sum Postop Eval Completion status Anesthesia document: Postop Eval 1 completed: Yes Anesthesia Postop Eval I Summary Anesthesia Postop Eval I Summary: Anesthesia Postop Eval I: Assessment Summary Airway patent Yes 10/16/24 12:16 FUR [email or web address] Spontaneous unlabored Yes 10/16/24 12:16 FUR PULLER.MDOT respirations Mental status Awake,Calm 10/16/24 12:16 FUR PULLER.MDOT nausea No 10/16/24 12:16 FUR PULLER.MDOT Vomiting No 10/16/24 12:16 FUR PULLER.MDOT Anesthesia Postop Eval I: Fluid Summary Crystalloid volume administer 700 10/16/24 12:16 FUR PULLER.MDOT (ml) Colloids volume administered ( ml) Blood Product volume administered (ml) Total IV fluid infused 700 10/16/24 12:16 FUR PULLER.MDOT Anesthesia Postop Eval I: Summary Notes Anesthesia Complication No 10/16/24 12:16 FUR PULLER.MDOT Anesthesia Complication Comment: Post-operative progress note Anesthesia: Postop Eval II Evaluation Mental status: Awake and Calm Pain Level: 3 nausea: No Vomiting: No Complications Anesthesia Complication: No
--- NOTE | 2024-10-16 15:01 | PCM.POSTANE2 ---
Anesthesia Postop Eval I Sum Postop Eval Completion status Anesthesia document: Postop Eval 1 completed: Yes Anesthesia Postop Eval I Summary Anesthesia Postop Eval I Summary: Anesthesia Postop Eval I: Assessment Summary Airway patent Yes 10/16/24 12:16 MANIPULATIVE THERAPY SPECIALIST.MDOT Spontaneous unlabored Yes 10/16/24 12:16 MANIPULATIVE THERAPY SPECIALIST.MDOT respirations Mental status Awake,Calm 10/16/24 12:16 MANIPULATIVE THERAPY SPECIALIST.MDOT nausea No 10/16/24 12:16 MANIPULATIVE THERAPY SPECIALIST.MDOT Vomiting No 10/16/24 12:16 MANIPULATIVE THERAPY SPECIALIST.MDOT Anesthesia Postop Eval I: Fluid Summary Crystalloid volume administer 700 10/16/24 12:16 MANIPULATIVE THERAPY SPECIALIST.MDOT (ml) Colloids volume administered ( ml) Blood Product volume administered (ml) Total IV fluid infused 700 10/16/24 12:16 MANIPULATIVE THERAPY SPECIALIST.MDOT Anesthesia Postop Eval I: Summary Notes Anesthesia Complication No 10/16/24 12:16 MANIPULATIVE THERAPY SPECIALIST.MDOT Anesthesia Complication Comment: Post-operative progress note Anesthesia: Postop Eval II Evaluation Mental status: Awake and Calm Pain Level: 3 nausea: No Vomiting: No Complications Anesthesia Complication: No
[2024-10-16] MEDS: Citalopram 20 MG Tablet PO (15:12)
[2024-10-16] MEDS: buPROPion (SR) 150 MG Tablet.SA PO (15:12)
[2024-10-16] MEDS: Acyclovir 200 MG Capsule 400 MG PO (15:12)
[2024-10-16] MEDS: Acetaminophen 500 MG Tablet 1000 MG PO (15:13)
[2024-10-16] MEDS: Spironolactone 50 MG Tablet 100 MG PO (15:14)
[2024-10-16] MEDS: oxyCODONE 5 MG Tablet 10 MG PO (15:17)
== END 2024-10-16 16:24 | disposition home or self-care (01) ==
LOC: ED 20:10 → MS3 22:06
PROVIDERS: Admitting Provider Urology; Emergency Provider Emergency Medicine; PCP Family Medicine; Visit Provider Urology
PROC: (CPT 50590; principal; 2024-10-16 10:00)
DX: N20.2 Calculus of kidney with calculus of ureter (principal); F17.210 Nicotine dependence, cigarettes, uncomplicated; N39.0 Urinary tract infection, site not specified; K21.9 Gastro-esophageal reflux disease without esophagitis; Z79.899 Other long term (current) drug therapy; F32.A Depression, unspecified; F41.9 Anxiety disorder, unspecified; F42.9 Obsessive-compulsive disorder, unspecified; R35.1 Nocturia
CPT/HCPCS: 00873; 80048; 81001; 85025; 96374; 96375; 96376; 99221; 99283; A4216; G0378; J0744; J2405

== ENCOUNTER 2024-10-17 08:39 | Emergency (ER) | payer OTHER, MEDICAID, SELFPAY ==
[2024-10-17] VITALS (9 sets, daily range): BP systolic 94–115; BP diastolic 45–78; PULSE 52–70; RESP 16–20; TEMP 36.6–37.1; O2SAT 92–100; BMI 32.7
--- NOTE | 2024-10-17 08:51 | ED.RN ---
URINARY STENT PLACED HERE AT [facility] YESTERDAY 10/16/24, PT IS HAVING 10/10 PAIN AND N/V. DENIES URINARY RETENTION AND DESCRIBES IT MORE PAINFUL IN THE ABD WHEN SHE URINATES.
--- NOTE | 2024-10-17 09:08 | ED.VIS.GI ---
HPI HPI - GI History of Present Illness Chief Complaint: Flank Pain Informant: patient Narrative Narrative: 29-year-old female with recent kidney stone and pain had a ureteral stent placed yesterday here by Dr. Rodriguez, she states the same pain is now even worse than when she just had this done without the stent. She denies any fevers or chills. The pain is in the same location, left flank, into her back and groin. Nausea and vomiting. Pain has been pretty intense for the past 6 or so hours. She is urinating some blood clots and gravel at times. She has been able to continue to urinate when she feels the need to. [facility] Medical History (Updated 10/17/24 @ 13:[address] Stevie Avilez MD) Depression Kidney stones Back pain Gastric reflux Smoker delivery delivered Sterilization H/O shoulder dystocia in prior , currently 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 , currently Genital herpes OCD (obsessive compulsive disorder) Anxiety Home Medications ?Medication ?Instructions ?Recorded ?Last Taken ?Type citalopram 20 mg tablet 20 mg PO DAILY depression 10/31/19 03/01/21 10:00 History 20 mg acyclovir 400 mg tablet See Rx Instructions .Route 05/26/24 Unknown Rx .COMPLEX herpes #60 tabs bupropion HCl 150 mg tablet,12 hr 150 mg PO QDAY depression 07/16/24 Unknown History sustained-release (Wellbutrin SR) ciprofloxacin HCl 250 mg tablet 250 mg PO BID atb 10/14/24 Unknown History (Cipro) lorazepam 1 mg tablet 1 mg PO BID PRN PRN anxiety 10/14/24 Unknown History spironolactone 100 mg tablet 100 mg PO DAILY acne 10/14/24 Unknown History ondansetron 8 mg disintegrating 8 mg PO Q8H PRN nausea and 10/16/24 Unknown Rx tablet vomiting #10 tabs oxycodone-acetaminophen 5 mg-325 1 tab PO Q8H PRN pain 3 days #10 10/16/24 Unknown Rx mg tablet tabs Allergy/AdvReac Type Severity Reaction Status Date / Time amoxicillin (Amoxicillin) Allergy Rash Verified 10/17/24 08:42 Penicillins Allergy Rash Verified 10/17/24 08:42 Surgical History H/O foot surgery H/O dilation and curettage Social History adopted: No household members: family housing: house number of children: 3 current occupational status: employed current occupation: [employer] pets and animals: Yes Smoking Status: Current every day smoker tobacco type: cigarettes second hand exposure: No alcohol intake: current details: social- not while substance use type: does not use seatbelt use: always do you feel safe at home: Yes additional social history: Spouse: Ashon- student ([employer]- 6, Wes-11) ROS ROS ED Constitutional Constitutional ED: Denies chills or fever(s) Eyes Eyes: Denies change in vision or diplopia ENT ENT ED: Denies rhinorrhea or sore throat Cardiovascular Cardiovascular: Denies chest pain or palpitations Respiratory/Chest Respiratory/Chest: Denies cough or dyspnea Gastrointestinal Gastrointestinal: Reports abdominal pain, nausea and vomiting; Denies diarrhea Genitourinary Genitourinary ED: Reports flank pain and hematuria; Denies dysuria Musculoskeletal Musculoskeletal: Denies back pain or neck pain Integumentary Denies abscess or rash Neurologic Neurologic: Denies headache(s), paresthesias or weakness Psychiatric Psychiatric: Denies anxiety or suicidal thoughts EXAM Physical Exam Const Vital Signs: 10/17/24 08:40 10/17/24 08:42 10/17/24 09:39 Temperature 98 F 98.7 F Temperature Source Temporal Oral Pulse Rate 70 63 59 L Respiratory Rate 20 H 20 H 17 Blood Pressure 110/77 112/78 115/45 L Blood Pressure Mean 88 89 68 Pulse Ox 99 98 100 Oxygen Delivery Method Room Air Room Air Room Air 10/17/24 09:42 10/17/24 10:00 10/17/24 11:00 Temperature 98.0 F 98.7 F 98.3 F Temperature Source Oral Oral Oral Pulse Rate 59 L 63 60 Respiratory Rate 18 19 H 16 Blood Pressure 115/45 L 101/48 L 94/48 L Blood Pressure Mean 68 65 63 Pulse Ox 100 92 98 Oxygen Delivery Method Room Air Room Air Room Air 10/17/24 12:00 10/17/24 13:00 Temperature 98.4 F 98.4 F Temperature Source Oral Oral Pulse Rate 59 L 54 L Respiratory Rate 16 17 Blood Pressure 97/46 L 95/52 L Blood Pressure Mean 63 66 Pulse Ox 97 98 Oxygen Delivery Method Room Air Room Air Positive well nourished and well developed Constitutional Narrative: Mild painful distress General Appearance ED: well developed HEENT Reports moist mucous membranes normocephalic and atraumatic Eyes PERRL and EOMs intact bilaterally Neck full ROM and supple Resp normal respiratory effort and clear to auscultation bilaterally Cardio regular rate, regular rhythm and no murmurs Rate: Negative for tachycardic GI non-distended GI Narrative: Tender throughout the left abdomen without guarding or rebound Auscultation: normoactive bowel sounds Palpation: soft Back/Spine General Back: CVA tenderness left and other FROM Extremity normal to inspection General Extremety ED: Negative for edema, pulses abnormal or tenderness General Extremity: Negative for edema or pulses abnormal Neuro oriented x3, CN's II-XII intact bilaterally and no sensory deficits noted Sensorium / Orientation: awake and alert Motor Exam: strength 5/5 throughout Psych Mood & Affect: anxious Skin no rashes or lesions noted and no wounds MDM MDM MDM Narrative Medical decision making narrative: Patient was given Zofran and morphine and some labs and a KUB, she states it did not help her pain and she was later given hydromorphone. She has a leukocytosis of 17. KUB 2 views of my interpretation shows no evidence of an obvious radiopaque stone and there is no evidence of a ureteral stent. I discussed with the patient, she states she was told she was getting stent but then things changed and she is not sure. I reviewed the surgical report, she did not get a stent she had lithotripsy. She provided us a urinalysis that shows no acute infection. I discussed with Dr. Rodriguez her surgeon, she request that we do a CT to assess for obstruction. This was done nurse reviewed the imaging and the results which I agree with, it is consistent with a small 2.9 mm left UVJ stone and mild hydronephrosis/perinephric stranding. Given the mild nature of the latter, it is unlikely she has a major complete obstruction. Therefore I believe the urine that is negative for infection and I do not think she needs to be admitted for emergent operative management of this, Dr. Rodriguez in agreement. Patient is okay managing this at home with expectant management, will give her another dose of pain medication at her request prior to discharge. Lab Data Attestation: I reviewed the patient's lab results. Labs: Laboratory Results - last 24 hr 10/17/24 10/17/24 09:10 11:11 WBC 17.0 H RBC 4.37 Hgb 12.9 Hct 37.8 MCV 86.5 MCH 29.5 MCHC 34.1 RDW Std Deviation 37.7 RDW Coeff of Dilan 11.9 Plt Count 333 MPV 10.0 Immature Gran % (Auto) 0.400 Neut % (Auto) 83.5 H Lymph % (Auto) 10.1 L [place] % (Auto) 5.9 Eos % (Auto) 0.0 Baso % (Auto) 0.1 Absolute Neuts (auto) 14.2 H Absolute Lymphs (auto) 1.72 Nucleated RBC % 0 Sodium 137 Potassium 4.3 Chloride 109 H Carbon Dioxide 21.0 Anion Gap 8 BUN 13 Creatinine 1.07 H Estim Creat Clear Calc 97.93 Est GFR (MDRD) Af Amer 78 Est GFR (MDRD) Non-Af 64 BUN/Creatinine Ratio 12.1 Glucose 130 H Calcium 8.9 Urine Color Yellow Urine Clarity Sl. Cloudy Urine pH 8.0 Ur Specific [place] 1.010 Urine Protein 30 H Urine Glucose (UA) Normal Urine Ketones Negative Urine Occult Blood 250 H Urine Nitrite Negative Urine Bilirubin Negative Urine Urobilinogen Normal Ur Leukocyte Esterase 25 H Urine RBC 10-25 SEEN Urine WBC 0-5 SEEN Ur Squamous Epith Cells 10-25 SEEN Urine Bacteria 1+ Urine Mucus 0 SEEN Radiography Diagnostic Testing: Clinical Impression(s) from Imaging Studies KUB X-Ray 10/17/24 09:30 IMPRESSION: No suspicious findings, retained stool Electronically Signed: Foster Garay MD at 9:43 EST Reading Location ID and State: [facility] / [place] , Service support , Abdomen/Pelvis CT 10/17/24 11:18 IMPRESSION: Left-sided perinephric stranding associated with a 2.9 mm calculus within the ureterovesicular junction; cannot exclude associated pyelonephritis. Bilateral nonobstructing renal calculi measuring up to 4 mm on the right. Moderate amount of stool throughout the colon and rectum. Electronically Signed: Priti Ricks MD at 12:32 EST , Management Discussion w/another healthcare provider: Information Security Architect Discharge Plan Triage Chief Complaint: Flank Pain ED Provider: Stevie Avilez Dx/Rx/DC Orders Clinical Impression: Ureteral colic, Urolithiasis Instructions: ED Urine Strainer, ED Kidney Stone with Pain Prescriptions: No Action bupropion HCl [Wellbutrin SR] 150 mg tablet sustained-release 12 hr 150 mg PO QDAY citalopram 20 MG tablet 20 mg PO DAILY spironolactone 100 mg tablet 100 mg PO DAILY lorazepam 1 mg tablet 1 mg PO BID PRN PRN (Reason: anxiety) ciprofloxacin HCl [Cipro] 250 mg tablet 250 mg PO BID ondansetron 8 mg tablet,disintegrating 8 mg PO Q8H PRN (Reason: nausea and vomiting) Qty: 10 0RF oxycodone-acetaminophen 5-325 mg tablet 1 tab PO Q8H PRN (Reason: pain) 3 Days Qty: 10 0RF acyclovir 400 mg tablet See Rx Instructions .ROUTE .COMPLEX Qty: 60 3RF Dose Instruction: take 1 tablet by mouth twice a day Rx Instructions: take 1 tablet by mouth twice a day Primary Care Provider: Blas Woodson Referrals: Brittany Rodriguez MD [Med Staff - Active Staff] - As Needed Blas Woodson DO [Primary Care Provider] - Print Language: Faroese Disposition Disposition: Home, Self Care
[2024-10-17] MEDS: Ondansetron 4 MG/2 ML Vial IV (09:19)
[2024-10-17] MEDS: Ketorolac 30 MG/ML Syringe IV (09:19)
[2024-10-17] MEDS: Morphine 4 MG/ML Syringe IV (09:20)
[2024-10-17 09:29] LABS: Absolute Lymphocyte Count 1.72 X10^3/uL (0.83-4.51); Absolute Neutrophil Count 14.2 X10^3/uL (2.0-7.7); Basophil# 0.02 X10^3/uL; Basophil% 0.1 % (0-1); Hematocrit 37.8 % (37-47); Hemoglobin 12.9 g/dL (12.0-15.0); Lymphocyte # 1.72 X10^3/ul (0.83-4.51); Lymphocyte % 10.1 % (19-41); Mean Corp Hgb Conc 34.1 g/dL (32-36); Mean Corpuscular Hgb 29.5 pg (27.0-32.0); Mean Corpuscular Volume 86.5 fL (81-99); Monocyte% 5.9 % (0-10); NRBC Flagged by Analyzer 0 % (0-5); Neutrophil # 14.22 X10^3/uL (2.7-7.7); Neutrophil % 83.5 % (47-70); Platelet Count 333 K/mm3 (150-450); RBC Distribution Width CV 11.9 % (11.6-14.6); RBC Distribution Width SD 37.7 fl (35.1-43.9); Red Blood Count 4.37 M/mm3 (4.2-5.4)
--- NOTE | 2024-10-17 09:30 | RAD_ITS ---
STUDY: X-RAY - ABDOMEN/PELVIS REASON FOR EXAM: Female, 29 years old. left flank pain, recent ureteral stent TECHNIQUE: Two AP supine views of the abdomen and pelvis. COMPARISON: 09/24/2024 FINDINGS: Normal visualized lung bases. There is an abundance of fecal material throughout the colon. There is no demonstrated free abdominal air. The visualized liver, spleen and kidneys are grossly normal in size and morphology. There is a 2 mm calcification overlying the right renal shadow, no calcifications are noted over the left renal shadow or along the expected course of either ureter. However, one could be overlooked due to the bowel gas and stool. Evidence of previous tubal ligation Normal visualized osseous structures. RAD/Abdomen Single View IMPRESSION: No suspicious findings, retained stool Electronically Signed: Foster Garay MD at 9:43 EST ,
[2024-10-17 09:43] LABS: Anion Gap 8 (5-15); BUN 13 mg/dL (7-18); BUN/Creat Ratio 12.1 RATIO (10-20); Calcium,Total 8.9 mg/dL (8.5-10.1); Chloride 109 mmol/L (98-107); Creatinine, Serum 1.07 mg/dL (0.55-1.02); EST Glomerular Filtration Rate 64 mL/min (>60); Est Glom Filt Rate - Afr Amer 78 mL/min (>60); Estimated Creatinine Clearance 97.93 ml/min; Glucose 130 mg/dL (74-106); Potassium 4.3 mmol/L (3.5-5.1); Sodium Level 137 mmol/L (136-145)
[2024-10-17] MEDS: HYDROmorphone 1 MG/ML Syringe IV (11:12)
--- NOTE | 2024-10-17 11:18 | CT_ITS ---
INDICATION: left flank pain EXAMINATION: CT ABDOMEN AND PELVIS WITHOUT CONTRAST - CT Abdomen And Pelvis W/O Contrast Injection TECHNIQUE: Helically acquired images were obtained of the abdomen and pelvis without oral or IV contrast. The protocol utilizes one or more of the following dose reduction techniques: automated exposure control, adjustment of mA and/or kV according to patient size,and/or use of iterative reconstruction technique. IV Contrast dosage and agent: None. Oral contrast: None. RADIATION DOSAGE (If Supplied By Facility): CTDIvol = ( 21.80 ) mGy, DLP = ( 1219.86 ) mGycm COMPARISON: No relevant prior comparison study available FINDINGS: LOWER CHEST: Lung bases are clear. No cardiomegaly or pericardial effusion. There are is partial visualization of bilateral breast implants. The lack of intravenous contrast limits evaluation of solid visceral organs. LIVER: Homogeneous. No focal mass. GALLBLADDER AND BILIARY TREE: No calcified gallstones. No gallbladder distension or wall edema. No intra- or extrahepatic biliary ductal dilation. PANCREAS: No focal cystic or solid mass. SPLEEN: Normal size without focal cystic or solid mass. ADRENAL GLANDS: No nodules. KIDNEYS AND URETERS: Normal renal size and position. There are bilateral nonobstructing renal calculi measuring up to 4 mm and 2.4 mm on the left. There is perinephric stranding along the mid/lower pole the left kidney. There is a 2.9 mm calculus within the left ureterovesicular junction. PERITONEUM: No ascites or free air. No other fluid collection. BOWEL: There is a moderate amount of stool throughout the colon and rectum. No evidence of acute appendicitis. No stomach or bowel distension. No focal inflammatory change. LYMPH NODES: No enlarged mesenteric or retroperitoneal lymph nodes. VESSELS: Aorta is non-dilated. URINARY BLADDER: The urinary bladder is incompletely distended. There is a focus of air within the urinary bladder suggestive of prior instrumentation. REPRODUCTIVE ORGANS: No pelvic masses. There are tubal ligation clips in place. ABDOMINAL WALL: There is a small fat-containing umbilical hernia. BONES: No lytic or blastic abnormality. CT/Abdomen/Pelvis without Cont IMPRESSION: Left-sided perinephric stranding associated with a 2.9 mm calculus within the ureterovesicular junction; cannot exclude associated pyelonephritis. Bilateral nonobstructing renal calculi measuring up to 4 mm on the right. Moderate amount of stool throughout the colon and rectum. Electronically Signed: Priti Ricks MD at 12:32 EST ,
[2024-10-17 11:21] LABS: Mucous, Urine 0 SEEN /hpf (<or=2+)
[2024-10-17 11:25] LABS: Color, Urine Yellow (Yellow); Glucose, Dipstick Normal (Normal); Ketone-Dipstick Negative (Negative); Leukocyte Esterase-Dipstick 25 /ul (Negative); Nitrite-Dipstick Negative (Negative); Occult Blood-Urine 250 /ul (Negative); Protein-Dipstick 30 mg/dl (Negative); Urine Bilirubin Dipstick Negative (Negative); Urine Clarity Sl. Cloudy (Clear); Urine Urobilinogen Normal (Normal)
[2024-10-17 11:38] LABS: Squamous Epithelial Cells - UA 10-25 SEEN /hpf (5-10)
[2024-10-17 11:39] LABS: Bacteria 1+ /hpf (None Seen); Red Blood Cells-Urine 10-25 SEEN /hpf (0-5); White Blood Cells 0-5 SEEN /hpf (0-5)
[2024-10-17] MEDS: fentaNYL 100 MCG/2 ML Ampul 40 MCG IV (13:34)
== END 2024-10-17 13:39 | disposition home or self-care (01) ==
PROVIDERS: Emergency Provider Emergency Medicine; PCP Family Medicine; Visit Provider Emergency Medicine
DX: N13.2 Hydronephrosis with renal and ureteral calculous obstruction (principal); F17.210 Nicotine dependence, cigarettes, uncomplicated
CPT/HCPCS: 74018; 74176; 80048; 81001; 85025; 96374; 96375; 99283; A4216; J2405

== ENCOUNTER → 2024-11-12 | Outpatient (CLI) | payer MEDICAID, SELFPAY ==
--- NOTE | 2024-11-12 09:08 | RAD_ITS ---
PROCEDURE: ABDOMEN SINGLE VIEW REASON FOR EXAM: Stone surveillance. TECHNIQUE: Two-view supine abdomen. COMPARISON: Abdomen study of 09/24/2024 RAD/Abdomen Single View IMPRESSION: Bilateral pelvic surgical clips are seen, with 1 of the prior left pelvic surgi eduardo clips migrated into the left lower quadrant of the abdomen since the study of 09/24/2024, however. The bowel-gas pattern is unremarkable. Given overlying stool, evaluation for renal calculi is limited. No definite calculus is now seen. Reading Location: [id number]
== END | disposition home or self-care (01) ==
LOC: MTRAD 09:06
PROVIDERS: PCP Family Medicine; Referring Provider Urology; Visit Provider Urology
DX: N20.0 Calculus of kidney (principal)
CPT/HCPCS: 74018

== ENCOUNTER → 2024-12-17 | Outpatient (CLI) | payer MEDICAID, SELFPAY ==
[2024-12-17 13:34] LABS: Amphetamine Urine NEGATIVE (<1000 ng/mL); Barbiturate Urine NEGATIVE (< 200 ng/mL); Benzodiazepine Urine NEGATIVE (< 200 ng/mL); Buprenorphine Urine PRESUMPTIVE POSITIVE (< 200 ng/mL); Cocaine Urine NEGATIVE (< 300 ng/mL); Fentanyl, Urine NEGATIVE; Methadone Urine NEGATIVE (< 300 ng/mL); Opiates Urine NEGATIVE (< 300 ng/mL); Oxycodone, Urine NEGATIVE (< 100 ng/mL); PCP Urine NEGATIVE (< 25 ng/mL); THC Urine NEGATIVE (< 50 ng/mL)
== END | disposition home or self-care (01) ==
LOC: LABSPEC 10:48
PROVIDERS: PCP Family Medicine; Visit Provider Family Medicine
DX: Z79.899 Other long term (current) drug therapy (principal)
CPT/HCPCS: 80307

== ENCOUNTER 2024-12-31 10:58 | Emergency (ER) | payer MEDICAID, SELFPAY ==
[2024-12-31 10:59] VITALS: BP 120/78; PULSE 103; RESP 15; TEMP 36.4; O2SAT 99; BMI 32.0
[2024-12-31 11:01] VITALS: BP 120/78; PULSE 103; RESP 15; TEMP 36.4; O2SAT 99
[2024-12-31 11:13] LABS: Bacteria 0 SEEN /hpf (None Seen); Mucous, Urine 0 SEEN /hpf (<or=2+)
[2024-12-31 11:15] LABS: Color, Urine Yellow (Yellow); Glucose, Dipstick Normal (Normal); Ketone-Dipstick Negative (Negative); Leukocyte Esterase-Dipstick 25 /ul (Negative); Nitrite-Dipstick Negative (Negative); Occult Blood-Urine Negative /ul (Negative); Protein-Dipstick 15 mg/dl (Negative); Urine Bilirubin Dipstick Negative (Negative); Urine Clarity Sl. Cloudy (Clear); Urine Urobilinogen Normal (Normal)
[2024-12-31 11:21] LABS: Red Blood Cells-Urine 0 SEEN /hpf (0-5); Squamous Epithelial Cells - UA 5-10 SEEN /hpf (5-10); White Blood Cells 0-5 SEEN /hpf (0-5)
[2024-12-31 11:22] LABS: Internal QC Validated? YES +Cl - CLEAR BKGD; Pregnancy, Urine Negative Negative
[2024-12-31] MEDS: 0.9% Normal Saline (1000mL) 1,000 ML 999 ML IV (12:32)
[2024-12-31] MEDS: Ketorolac 15 MG/ML Vial IV (12:33)
[2024-12-31 13:00] VITALS: PULSE 57; RESP 20; O2SAT 99
[2024-12-31] MEDS: Ondansetron 4 MG/2 ML Vial IV (13:21)
[2024-12-31] MEDS: Morphine 4 MG/ML Syringe IV (13:21)
--- NOTE | 2024-12-31 13:25 | CT_ITS ---
PROCEDURE: ABDOMEN/PELVIS WITHOUT CONT 12/31/2024 REASON FOR EXAM: FLANK PAIN, HX OF STONES TECHNIQUE: Abdomen and pelvis CT without intravenous contrast. Coronal and Sagittal reconstruction series were provided. One or more dose reduction techniques were used (e.g., Automated exposure control, adjustment of the mA and/or kV according to patient size, use of iterative reconstruction technique). ORAL CONTRAST TYPE: None. DLP 626.6 mGy-cm. CTD 11.77mGy. COMPARISON: Abdomen and pelvis CT of 10/17/2024. FINDINGS: The visualized lung bases are unremarkable. Bilateral breast prostheses are again partially visualized. Pelvic and lower abdominal metallic densities are again present, most likely representing surgical clips. No evidence of abdominal aortic aneurysm. Stable right mid renal calculus. No left renal calculus is seen. No evidence of hydronephrosis or significant hydroureter. An approximately 2 mm calculus is seen at or near the left ureterovesicular junction. No free fluid is seen. No evidence of pneumoperitoneum. The liver, gallbladder, pancreas, spleen, and adrenal glands show no abnormality. No adenopathy is seen. The urinary bladder is distended. CT/Abdomen/Pelvis without Cont IMPRESSION: 1. Approximately 2 mm calculus seen at or near the left ureterovesicular juncti on. 2. No significant hydronephrosis. Reading Location: [id number]
--- NOTE | 2024-12-31 14:28 | EX.ED.DYSGE1 ---
HPI History of Present Illness Chief Complaint: Flank Pain Narrative Narrative: Patient is a 29-year-old female with a past medical history of depression, GERD, anxiety, OCD who presents to the emergency department with concern for a kidney stone. Patient states that she is having right flank pain and notes that she was up all night in pain. States that she had a few pain pills remaining from a previous ER visit as well as Zofran that she was taking but states that she is currently out of the pain pills. She states that she has a lithotripsy scheduled tomorrow with Dr. Rodriguez. Patient denies any recent sick contacts. [facility] Medical History Depression Kidney stones Back pain Gastric reflux Smoker delivery delivered Sterilization H/O shoulder dystocia in prior , currently 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 , currently Genital herpes OCD (obsessive compulsive disorder) Anxiety Home Medications ?Medication ?Instructions ?Recorded ?Last Taken ?Type bupropion HCl 150 mg tablet,12 hr 150 mg PO QDAY depression 07/16/24 Unknown History sustained-release (Wellbutrin SR) lorazepam 1 mg tablet 1 mg PO BID PRN PRN anxiety 10/14/24 Unknown History ondansetron 8 mg disintegrating 8 mg PO Q8H PRN nausea and 10/16/24 Unknown Rx tablet vomiting #10 tabs acyclovir 400 mg tablet See Rx Instructions .Route 12/12/24 Unknown Rx .COMPLEX herpes #60 tabs citalopram 40 mg tablet 40 mg PO DAILY 12/31/24 Unknown History oxycodone-acetaminophen 5 mg-325 1 tab PO Q6H PRN pain 1 day #4 tabs 12/31/24 Unknown Rx mg tablet (Endocet) tamsulosin 0.4 mg capsule (Flomax) 0.4 mg PO DAILY 14 days #14 caps 12/31/24 Unknown Rx Allergy/AdvReac Type Severity Reaction Status Date / Time amoxicillin (Amoxicillin) Allergy Rash Verified 12/31/24 11:10 Penicillins Allergy Rash Verified 12/31/24 11:10 Surgical History Hx of cystoscopy H/O foot surgery H/O dilation and curettage Social History adopted: No household members: family housing: house number of children: 3 current occupational status: employed current occupation: [employer] pets and animals: Yes Smoking Status: Current every day smoker tobacco type: cigarettes second hand exposure: No alcohol intake: current details: social- not while substance use type: does not use seatbelt use: always do you feel safe at home: Yes additional social history: Spouse: Ashon- student ([employer]- 6, Ashdonna-11) ROS ROS ED ROS Narrative Constitutional: Denies fevers, chills, headaches, lightness, dizziness Abdomen: Complains of right lower abdominal pain as noted above as well as nausea vomiting denies diarrhea : Denies urinary symptoms complains of concern for kidney stone as noted above Neurological: Denies numbness, weakness, tingling Musculoskeletal: Complains of right flank pain as noted above Skin: Denies rashes or lesions EXAM Physical Exam Narrative Exam Narrative: General: Patient lying in bed rest comfortably did not appear to be in acute distress Head: Atraumatic, normocephalic Eyes: PERRL bilaterally, EOMI bilateral, no conjunctival injection noted Neck: Soft, supple, trachea midline Cardiovascular: Regular rate and rhythm no murmurs gallops rubs noted Respiratory: Clear to auscultation bilaterally Abdomen: Soft, nondistended, mild tenderness to palpation in the right side of her abdomen no rebound or guarding on exam Musculoskeletal: No CVA tenderness on exam, no tenderness palpation midline of the thoracic lumbar spine Extremities: +5/5 strength in bilateral upper and lower extremities Neurological: Patient follow commands knew that she was at [facility] years 2024 Skin: Warm, dry, intact no rashes or lesions noted Const Vital Signs: 12/31/24 10:59 12/31/24 11:01 12/31/24 13:00 Temperature 97.5 F L 97.5 F L Temperature Source Oral Oral Pulse Rate 103 H 103 H 57 L Respiratory Rate 15 15 20 H Blood Pressure 120/78 120/78 Blood Pressure Mean 92 92 Pulse Ox 99 99 99 Oxygen Delivery Method Room Air Room Air Room Air MDM MDM MDM Narrative Medical decision making narrative: Patient is a 29-year-old female who presents to the emergency department the chief complaint of right flank pain radiating to her right portion of her abdomen. On the differential diagnose includes Melamin to UTI, pyelonephritis, urolithiasis, nephrolithiasis. Once workup is obtained and reviewed she will be reevaluated. Patient was given Toradol I reached out to Dr. Rodriguez who states she is very well aware of this patient and states that in the past she admitted to the hospital and notes that she was requesting pain medication throughout the night and notes that since she would not prescribe her pain medication outpatient setting she came to the emergency department to be evaluated. She states that she will not admit the patient without a CT scan if this is necessary. I discussion with her and states that if we get her pain under control she can go home. Reevaluate the patient and she was still having pain therefore she was given morphine Zofran I added a CT abdomen pelvis without IV contrast on. Patient CT abdomen pelvis without IV contrast reviewed and did show a 2 mm calculus seen at the left ureterovesicular junction. I reach back out to Dr. Rodriguez and discussed this result with her she states that she can go home and follow-up with her tomorrow for lithotripsy. Patient was advised to take prescriptions as prescribed and do not operate anything under the influence of the narcotic. She is encouraged return with worsening symptoms or concerns. She is agreeable this plan all question concerns answered she is discharged home in stable condition Lab Data Labs: Laboratory Results - last 24 hr 12/31/24 11:07 Urine Color Yellow Urine Clarity Sl. Cloudy Urine pH 8.0 Ur Specific [place] 1.010 Urine Protein 15 H Urine Glucose (UA) Normal Urine Ketones Negative Urine Occult Blood Negative Urine Nitrite Negative Urine Bilirubin Negative Urine Urobilinogen Normal Ur Leukocyte Esterase 25 H Urine RBC 0 SEEN Urine WBC 0-5 SEEN Ur Squamous Epith Cells 5-10 SEEN Urine Bacteria 0 SEEN Urine Mucus 0 SEEN Urine Test Negative Radiography Diagnostic Testing: Clinical Impression(s) from Imaging Studies Abdomen/Pelvis CT 12/31/24 13:25 IMPRESSION: 1. Approximately 2 mm calculus seen at or near the left ureterovesicular junction. 2. No significant hydronephrosis. Reading Location: [address] Discharge Plan Triage Chief Complaint: Flank Pain ED Provider: Roly Zabala Dx/Rx/DC Orders Clinical Impression: Flank pain, Urolithiasis Prescriptions: New tamsulosin [Flomax] 0.4 mg capsule 0.4 mg PO DAILY 14 Days Qty: 14 0RF oxycodone-acetaminophen [Endocet] 5-325 mg tablet 1 tab PO Q6H PRN (Reason: pain) 1 Days Qty: 4 0RF No Action bupropion HCl [Wellbutrin SR] 150 mg tablet sustained-release 12 hr 150 mg PO QDAY lorazepam 1 mg tablet 1 mg PO BID PRN PRN (Reason: anxiety) ondansetron 8 mg tablet,disintegrating 8 mg PO Q8H PRN (Reason: nausea and vomiting) Qty: 10 0RF citalopram 40 mg tablet 40 mg PO DAILY acyclovir 400 mg tablet See Rx Instructions .ROUTE .COMPLEX Qty: 60 12RF Dose Instruction: take 1 tablet by mouth twice a day Rx Instructions: take 1 tablet by mouth twice a day Primary Care Provider: Blas Woodson Referrals: Blas Woodson DO [Primary Care Provider] - Activity Restrictions/Additional Instructions: Follow-up tomorrow for your procedure. Use prescriptions as prescribed take Zofran with the Endocet as this will make your stomach upset. Do not operate anything under the influence of this medication. You should use ibuprofen for mild to moderate pain and use that for severe pain. Return with worsening symptoms or concerns. Print Language: Hungarian Disposition Disposition: Home, Self Care
[2024-12-31 15:00] VITALS: PULSE 60; RESP 18; O2SAT 99
[2024-12-31] MEDS: Ondansetron ODT 4 MG Tablet PO (15:12)
[2024-12-31] MEDS: Acetaminophen 325 MG Tablet PO (15:12)
[2024-12-31] MEDS: oxyCODONE 5 MG Tablet PO (15:12)
== END 2024-12-31 15:17 | disposition home or self-care (01) ==
PROVIDERS: Emergency Provider Emergency Medicine; PCP Family Medicine; Visit Provider Emergency Medicine
DX: R10.9 Unspecified abdominal pain (principal); F41.9 Anxiety disorder, unspecified; F17.210 Nicotine dependence, cigarettes, uncomplicated; N20.9 Urinary calculus, unspecified; F32.A Depression, unspecified; Z79.899 Other long term (current) drug therapy
CPT/HCPCS: 74176; 81001; 81025; 96361; 96374; 96375; 99283; J2405

== ENCOUNTER 2025-01-01 12:20 | Day surgery (SDC) | payer MEDICAID, SELFPAY ==
[2025-01-01] VITALS (12 sets, daily range): BP systolic 115–143; BP diastolic 66–94; PULSE 72–118; RESP 14–18; TEMP 36.3–37; O2SAT 96–100; BMI 33.2
[2025-01-01 12:49] LABS: Internal QC Validated? YES +Cl - CLEAR BKGD; Pregnancy, Urine Negative Negative
[2025-01-01] MEDS: 0.9% Normal Saline (1000mL) 1,000 ML 15 ML IV (12:53)
--- NOTE | 2025-01-01 13:28 | PRE.ANES_ITS ---
ASA Classification* ASA Classification ASA Classification: 2 Assessment & Plan Anesthesia* Anesthesia Assessment Anesthesia Assessment: Discussed sedation and/or anesthesia options, risks, benefits, and alternatives with patient/parents/legal guardian/POA. Questions invited. The patient/parents/legal guardian/POA seems to understand and agrees to proceed with anesthesia plan. Reviewed the physical assessment, medical history, allergy history and patient home medications list prior to surgery/procedure/anesthetic and documented any changes. Performed airway and anesthesia risk assessments. Anesthesia Type Anesthesia Type: General History Source History Obtained from:: Patient and Chart Anesthesia Focused Assessment* Temperature: 98.6 F Pulse Rate: 72 Blood Pressure: 115/73 Respiratory Rate: 16 Pulse Ox: 97 Oxygen Delivery Method: Room Air Airway Assessment Mouth opens: >3 cm Mallampati Score: III Teeth Condition: Missing (Missing one molar left lower jaw.) Neck Range of motion (ROM): Full ROM Focused Labs Anesthesia Preop lab: CBC WBC 17.0 K/mm3 (4.4-11.0) H 10/17/24 09:10 5 RBC 4.37 M/mm3 (4.2-5.4) 10/17/24 09:10 10/17/24 Hgb 12.9 g/dL (12.0-15.0) 10/17/24 09:10 10/17/24 Hct 37.8 % (37-47) 10/17/24 09:10 10/17/24 Plt Count 333 K/mm3 (150-450) 10/17/24 09:10 10/17/24 CHEMISTRY Potassium 4.3 mmol/L (3.5-5.1) 10/17/24 09:10 10/17/24 Sodium 137 mmol/L (136-145) 10/17/24 09:10 10/17/24 BUN 13 mg/dL (7-18) 10/17/24 09:10 10/17/24 Creatinine 1.07 mg/dL (0.55-1.02) H 10/17/24 09:10 Glucose 130 mg/dL (74-106) H 10/17/24 09:10 10/17/24 TSH 0.497 uIU/mL (0.358-3.740) 09/09/24 14:18 09/07/08 COAG HCG, Quant 9361 mIU/mL (1-3) H 09/21/20 13:15 09/21/20 Urine Test Negative Negative 01/01/25 12:25 01/01/25 Tst Clinic Negative 06/22/22 09:00 06/22/22 Pre-Assessment Diagnosis/Proposed Procedure Planned Operative Procedure(s): (R) right renal ESWL Anesthesia History 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 When Was Last Pacemaker Check QUESTION #4 FULL TEXT: You/Your Family Experience fever (hyperthermia) with Anesthesia Last Oral Intake Last Oral intake: Last Oral Intake NPO since 00:00 01/01/25 12:37 Meds taken in AM with sips of water? Meds patient instructed to take am of surgery PONV PONV - local combination truck driver: PONV - local combination truck driver Female Yes 12/31/24 09:17 HX of Motion Sickness No 12/31/24 09:17 HX of N/V After Surgery No 12/31/24 09:17 Non-Smoker No 12/31/24 09:17 Duration of Surgery greater No 12/31/24 09:17 than 60 minutes Number of Risk Factors 1 12/31/24 09:17 PONV Score Low Risk 12/31/24 09:17 Height & Weight Height & Weight: Anesthesia: Height & Weight Height 5 ft 8 in 01/01/25 12:37 Weight: 99 kg 01/01/25 12:37 Body Mass Index (BMI) 33.2 01/01/25 12:37 Respiratory Assessment Respiratory Assessment - local combination truck driver: Respiratory Tract Infection Hx - local combination truck driver Hx Respiratory Tract Infection No 12/31/24 09:17 STOP Sleep Apnea STOP Sleep Apnea - local combination truck driver: STOP Sleep Apnea - local combination truck driver Hx Hypertension No 12/31/24 09:17 Hx Sleep Apnea No 12/31/24 09:17 CPAP BIPAP Do you snore loudly (louder No 12/31/24 09:17 than talking or can be heard Do you often feel tired/ No 12/31/24 09:17 fatigued/ sleepy during daytime? Has anyone observed you stop No 12/31/24 09:17 breathing during sleep? STOP Results Negative 12/31/24 09:17 QUESTION #5 FULL TEXT : Do you snore loudly (louder than talking or can be heard through closed doors)? 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 Specify any problems Hx of Preganancy in last 3 No 12/31/24 09:17 Months Nurse Filling Out Transfusion VCHRISTIN 12/31/24 09:17 & Questions: Date: 12/31/24 12/31/24 09:17 Time: 09:18 12/31/24 09:17 Patient unable to answer at this time (ie. confused, unrespo /Reproduction History /Reproductive History - local combination truck driver: /Reproductive Hx- local combination truck driver Hx Now No 12/31/24 09:17 Gestational Age (in weeks): EDC: Hx Hx Para Hx Section SAB No 12/31/24 09:17 Active Medications Active Medications: Current Medications Generic Name Dose Route Start Last Admin Trade Name Freq PRN Reason Stop Dose Admin Ciprofloxacin 400 mg in 200 mls @ 200 mls/hr 01/01/25 13:40 Cipro IV 01/01/25 14:39 PREOP ONE Sodium Chloride 1,000 mls @ 15 mls/hr 01/01/25 12:35 01/01/25 12:53 IV 15 mls/hr .Q48H JANESSA Administration PFSH Medical History Depression Kidney stones Back pain Gastric reflux Smoker delivery delivered Sterilization H/O shoulder dystocia in prior , currently 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 , currently Genital herpes OCD (obsessive compulsive disorder) Anxiety Home Medications ?Medication ?Instructions ?Recorded ?Last Taken ?Type bupropion HCl 150 mg tablet,12 hr 150 mg PO QDAY depre ssion 07/16/24 Unknown History sustained-release (Wellbutrin SR) lorazepam 1 mg tablet 1 mg PO BID PRN PRN anxiety 10/14/24 Unknown History ondansetron 8 mg disintegrating 8 mg PO Q8H PRN nausea and 10/16/24 Unknown Rx tablet vomiting #10 tabs acyclovir 400 mg tablet See Rx Instructions .Route 0 12/12/24 Unknown Rx .COMPLEX herpes #60 tabs citalopram 40 mg tablet 40 mg PO DAILY 12/31/24 Unkn own History oxycodone-acetaminophen 5 mg-325 1 tab PO Q6H PRN pain 1 day #4 tabs 12/31/24 Unknown Rx mg tablet (Endocet) tamsulosin 0.4 mg capsule (Flomax) 0.4 mg PO DAILY 14 days #14 caps 12/31/24 Unknown Rx Allergy/AdvReac Type Severity Reaction Status Date / Time amoxicillin (Amoxicillin) Allergy Rash Verified 01/01/25 12:36 Penicillins Allergy Rash Verified 01/01/25 12:36 Surgical History Hx of cystoscopy H/O foot surgery H/O dilation and curettage Social History adopted: No household members: family housing: house number of children: 3 current occupational status: employed current occupation: [employer] pets and animals: Yes Smoking Status: Current every day smoker tobacco type: cigarettes second hand exposure: No alcohol intake: current details: social- not while substance use type: does not use seatbelt use: always do you feel safe at home: Yes additional social history: Spouse: Ashon- student ([employer]- 6, Wes-11) Review of Systems (Anesthesia) ROS Narrative System reviewed and no additional complaints, except as documented.
[2025-01-01] MEDS: Ciprofloxacin 400 MG/200 ML BAG 200 MG IV (15:25)
--- NOTE | 2025-01-01 15:55 | DCINST_ITS ---
Discharge Instructions Diet Discharge Diet: No restrictions Activity Discharge Activity: Return to Normal Activity Dressing / Incision Call your doctor if you observe: Fever of 101 or Higher, Inability to urinate and Inability to have a bowel movement Follow Up Care Please Follow Up With: Brittany Rodriguez MD When: In the office with a KUB in 2 to 3 weeks, the office will call for follow- up appointment. Test Results: Test results from this visit will be discussed in further detail at your follow- up appointment, if applicable. Discharge Plan Admission Attending Provider: Brittany Rodriguez Primary Care Provider: Blas Woodson Instructions Print Language: Portuguese Discharge Orders/Prescriptions Prescriptions: New ciprofloxacin HCl [Cipro] 250 mg tablet 250 mg PO BID Qty: 6 0RF ondansetron 8 mg tablet,disintegrating 8 mg PO Q8H PRN (Reason: nausea and vomiting) Qty: 10 0RF oxycodone-acetaminophen 5-325 mg tablet 1 tab PO Q8H PRN (Reason: pain) 3 Days Qty: 10 0RF Continued bupropion HCl [Wellbutrin SR] 150 mg tablet sustained-release 12 hr 150 mg PO QDAY lorazepam 1 mg tablet 1 mg PO BID PRN PRN (Reason: anxiety) ondansetron 8 mg tablet,disintegrating 8 mg PO Q8H PRN (Reason: nausea and vomiting) Qty: 10 0RF citalopram 40 mg tablet 40 mg PO DAILY tamsulosin [Flomax] 0.4 mg capsule 0.4 mg PO DAILY 14 Days Qty: 14 0RF oxycodone-acetaminophen [Endocet] 5-325 mg tablet 1 tab PO Q6H PRN (Reason: pain) 1 Days Qty: 4 0RF acyclovir 400 mg tablet See Rx Instructions .ROUTE .COMPLEX Qty: 60 12RF Dose Instruction: take 1 tablet by mouth twice a day Rx Instructions: take 1 tablet by mouth twice a day Referrals / Follow Up: Blas Woodson DO [Primary Care Provider] - Disposition Disposition (needs filled in before D/C Order can be placed): Home, Self Care
--- NOTE | 2025-01-01 15:58 | OP.PCM_ITS ---
Operative Report (Standard) Operative Information Date of Procedure: 01/01/25 Pre-Operative Diagnosis: Right renal stones, possible left distal ureteral calculus Post-Operative Diagnosis: Right renal stones, no left ureteral calculus Surgery/Procedure Performed: Left ureteroscopy, right renal extracorporeal shockwave lithotripsy hat forming machine feeder: No Type of Anesthesia: General RN Documented Start/Stop Times: Operation Date: 01/01/25 13:40 Case Time Into Pre-Op 01/01/25 12:27 Out of Pre-Op 01/01/25 15:11 Anesthesia Start 01/01/25 15:18 Into Room 01/01/25 15:18 Procedure Start 01/01/25 15:33 Procedure Start Time: 15:33 Procedure Stop Time: 16:05 Select all DRAINS/GRAFTS/IMPLANTS that apply: None Estimated Blood Loss: <5cc Specimen collected: No Description of surgery: The patient is a 29-year-old female with kidney stones and a possible left ureteral calculus seen on CT scan yesterday in the emergency room. She previously did have a left extracorporal shockwave lithotripsy performed. No left renal stones were seen. Informed consent was obtained for left ureteroscopy, right renal extracorporal shockwave lithotripsy. She was taken to the operating room and placed on the operating room table. Anesthesia monitored the head, neck, airway, IV access and vital signs throughout the case. Once anesthesia was appropriate ministered she was placed into dorsolithotomy position was prepped and draped in usual sterile fashion. The semirigid ureteroscope was inserted through the urethra under direct visualization. The left ureteral orifice was identified and intubated with a 0.035 Glidewire through the ureteroscope. The ureteroscope was then reinserted alongside of the Glidewire into the left ureter and it was directly visualized all the way up to the proximal ureter with no evidence of erythema, edema, foreign body including stone. The ureteroscope and wire were then removed. She was repositioned on the table in a supine position. The right kidney stone approximately 6 mm in size was identified and 2000 shocks were applied to it. It was no longer visualized at the conclusion of the case. She was then awakened and taken to the recovery room in good condition. There were no complications during this procedure. Surgical Findings: 6 mm right stone, well fragmented at the conclusion of the case. No ureteral stones identified. Complications Complications: No Admit VTE Documentation VTE Present on Admission: Yes VTE Mechan Device Prophylaxis: SCD's VTE Pharm Prophylaxis ordered?: No Reason prophylaxis not ordered: Treatment Not Indicated
--- NOTE | 2025-01-01 16:21 | PCM.POST.ANE ---
Anesthesia: Postop Eval I Current Vital Signs Temperature: 97.4 F Pulse Rate: 118 Blood Pressure: 126/68 Respiratory Rate: 16 Pulse Ox: 100 Oxygen Delivery Method: Room Air Assessment Airway patent: Yes Spontaneous unlabored respirations: Yes Mental status: Awake and Calm nausea: No Vomiting: No Anesthesia Complication: No Fluid Hydration Crystalloid volume administer (ml): 600 Total IV fluid infused: 600 Progress Note Anesthesia document: Postop Eval 1 completed: Yes
--- NOTE | 2025-01-01 16:34 | POSTOPAN2_ITS ---
Anesthesia Postop Eval I Sum Postop Eval Completion status Anesthesia document: Postop Eval 1 completed: Yes Anesthesia Postop Eval I Summary Anesthesia Postop Eval I Summary: Anesthesia Postop Eval I: Assessment Summary Airway patent Yes 01/01/25 16:21 MINE SAFETY [email or web address] Spontaneous unlabored Yes 01/01/25 16:21 MINE SAFETY MANAGER.GREG respirations Mental status Awake,Calm 01/01/25 16:21 MINE SAFETY MANAGER.[email or web address] nausea No 01/01/25 16:21 MINE SAFETY MANAGER.[email or web address] Vomiting No 01/01/25 16:21 MINE SAFETY MANAGER.[email or web address] Anesthesia Postop Eval I: Fluid Summary Crystalloid volume administer 600 01/01/25 16:21 MINE SAFETY MANAGER.[email or web address] (ml) Colloids volume administered ( ml) Blood Product volume administered (ml) Total IV fluid infused 600 01/01/25 16:21 MINE SAFETY MANAGER.GREG Anesthesia Postop Eval I: Summary Notes Anesthesia Complication No 01/01/25 16:21 MINE SAFETY MANAGER.GREG Anesthesia Complication Comment: Post-operative progress note Anesthesia: Postop Eval II Evaluation Mental status: Awake Pain Level: 2 nausea: No Vomiting: No
--- NOTE | 2025-01-01 16:34 | PCM.POSTANE2 ---
Anesthesia Postop Eval I Sum Postop Eval Completion status Anesthesia document: Postop Eval 1 completed: Yes Anesthesia Postop Eval I Summary Anesthesia Postop Eval I Summary: Anesthesia Postop Eval I: Assessment Summary Airway patent Yes 01/01/25 16:21 [email or web address] Spontaneous unlabored Yes 01/01/25 16:21 ENSEMBLE MEMBER.GREG respirations Mental status Awake,Calm 01/01/25 16:21 ENSEMBLE MEMBER.[email or web address] nausea No 01/01/25 16:21 ENSEMBLE MEMBER.[email or web address] Vomiting No 01/01/25 16:21 ENSEMBLE MEMBER.[email or web address] Anesthesia Postop Eval I: Fluid Summary Crystalloid volume administer 600 01/01/25 16:21 [email or web address] [email or web address] (ml) Colloids volume administered ( ml) Blood Product volume administered (ml) Total IV fluid infused 600 01/01/25 16:21 ENSEMBLE MEMBER.GREG Anesthesia Postop Eval I: Summary Notes Anesthesia Complication No 01/01/25 16:21 ENSEMBLE MEMBER.GREG Anesthesia Complication Comment: Post-operative progress note Anesthesia: Postop Eval II Evaluation Mental status: Awake Pain Level: 2 nausea: No Vomiting: No
[2025-01-01] MEDS: Phenazopyridine 95 MG Tablet 190 MG PO (17:02)
[2025-01-01] MEDS: Acetaminophen 325 MG Tablet 650 MG PO (17:24)
== END 2025-01-01 17:15 | disposition home or self-care (01) ==
LOC: SDC 12:20 → AC 12:22
PROVIDERS: Anesthesiology; PCP Family Medicine; Referring Provider Urology; Visit Provider Urology
PROC: (CPT 50590; principal; 2025-01-01 13:30)
DX: N20.0 Calculus of kidney (principal); R39.16 Straining to void; F32.A Depression, unspecified; F41.9 Anxiety disorder, unspecified; F17.210 Nicotine dependence, cigarettes, uncomplicated; Z79.899 Other long term (current) drug therapy
CPT/HCPCS: 50590; 52351; 00873; 81025; C1769; J0744; J2405

== ENCOUNTER → 2025-01-21 | Outpatient (CLI) | payer MEDICAID, SELFPAY ==
--- NOTE | 2025-01-21 10:23 | RAD_ITS ---
PROCEDURE: ABDOMEN SINGLE VIEW 01/21/2025 REASON FOR EXAM: KUB- KIDNEY STONES TECHNIQUE: Single view abdomen. COMPARISON: CT abdomen pelvis 12/31/2024. FINDINGS: Bowel gas: Bowel gas pattern is normal. No evidence of bowel obstruction. Calcifications: No radiopaque densities overlying the expected regions of the bilateral kidneys. Bones: The bones are unremarkable. Other: Left lower quadrant and pelvic surgical clips. RAD/Abdomen Single View IMPRESSION: No radiopaque densities overlying the expected regions of the bilateral kidneys . Reading Location: [id number]
== END | disposition home or self-care (01) ==
LOC: MTRAD 10:22
PROVIDERS: PCP Family Medicine; Referring Provider Urology; Visit Provider Urology
DX: N20.0 Calculus of kidney (principal)
CPT/HCPCS: 74018

== ENCOUNTER 2025-02-12 10:14 | Emergency (ER) | payer SELFPAY ==
[2025-02-12 10:15] VITALS: BP 111/79; PULSE 104; RESP 19; TEMP 37.6; O2SAT 100; BMI 34.4
[2025-02-12 10:18] VITALS: BP 111/79; PULSE 104; RESP 19; TEMP 37.6; O2SAT 100
--- NOTE | 2025-02-12 10:32 | EDS_ITS ---
HPI History of Present Illness Chief Complaint: Flank Pain Narrative Narrative: 30-year-old female past medical history of previous kidney stones, depression and anxiety, status post lithotripsy by approximately 2 months, presents with 2 days of bodyaches, fever, and low back pain. States she was having right flank pain as well. Denies any cough or shortness of breath, no runny nose. No dysuria or hematuria. Started having back pain but was having body aches all over as well. She has been taking Aleve and Tylenol. She and her mother present as they were concerned that she might have fever and chills with a kidney stone as she was having more right flank pain. Denies other exacerbating or alleviating factors. 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 , currently Genital herpes OCD (obsessive compulsive disorder) Anxiety Home Medications ?Medication ?Instructions ?Recorded ?Last Taken ?Type bupropion HCl 150 mg tablet,12 hr 150 mg PO QDAY depre ssion 07/16/24 Unknown History sustained-release (Wellbutrin SR) lorazepam 1 mg tablet 1 mg PO BID PRN PRN anxiety 10/14/24 Unknown History ondansetron 8 mg disintegrating 8 mg PO Q8H PRN nausea and 10/16/24 Unknown Rx tablet vomiting #10 tabs acyclovir 400 mg tablet See Rx Instructions .Route 0 12/12/24 Unknown Rx .COMPLEX herpes #60 tabs citalopram 40 mg tablet 40 mg PO DAILY 12/31/24 Unkn own History oxycodone-acetaminophen 5 mg-325 1 tab PO Q6H PRN pain 1 day #4 tabs 12/31/24 Unknown Rx mg tablet (Endocet) tamsulosin 0.4 mg capsule (Flomax) 0.4 mg PO DAILY 14 days #14 caps 12/31/24 Unknown Rx ciprofloxacin HCl 250 mg tablet 250 mg PO BID #6 tabs 01/01/25 Unknown Rx (Cipro) ondansetron 8 mg disintegrating 8 mg PO Q8H PRN nausea and 01/01/25 Unknown Rx tablet vomiting #10 tabs oxycodone-acetaminophen 5 mg-325 1 tab PO Q8H PRN pain 3 days #10 01/01/25 Unknown Rx mg tablet tabs Allergy/AdvReac Type Severity Reaction Status Date / Time amoxicillin (Amoxicillin) Allergy Rash Verified 02/12/25 10:19 Penicillins Allergy Rash Verified 02/12/25 10:19 Surgical History Hx of cystoscopy H/O foot surgery H/O dilation and curettage Social History adopted: No household members: family housing: house number of children: 3 current occupational status: employed current occupation: [employer] pets and animals: Yes Smoking Status: Current every day smoker (Patient did smoke today.) tobacco type: cigarettes second hand exposure: No alcohol intake: current details: social- not while substance use type: does not use seatbelt use: always do you feel safe at home: Yes additional social history: Spouse: Ashon- student ([employer]- 6, Ashon-11) ROS ROS ED ROS Narrative Review of systems positive for bilateral low back pain right greater than left, right flank pain, fever, multiple myalgias/body aches. Denies dysuria or hematuria. No rhinorrhea, no cough or shortness of breath. EXAM Physical Exam Narrative Exam Narrative: Afebrile. Vital signs noted. Nontoxic-appearing. Cardiovascular examination reveals mild tachycardia. Lungs are clear to auscultation bilaterally. Mild tachypnea. Abdomen is soft nontender with normoactive bowel sounds. No CVA tenderness to percussion bilaterally. Full range of motion of extremities, neurological examination nonfocal, nonlateralizing. Const Vital Signs: 02/12/25 10:15 02/12/25 10:18 Temperature 99.7 F H 99.7 F H Temperature Source Oral Oral Pulse Rate 104 H 104 H Respiratory Rate 19 H 19 H Blood Pressure 111/79 111/79 Blood Pressure Mean 89 89 Pulse Ox 100 100 Oxygen Delivery Method Room Air Room Air MDM MDM MDM Narrative Medical decision making narrative: The differential diagnosis includes a viral syndrome including COVID versus influenza versus RSV but she is not really showing upper respiratory symptoms. Fever and back pain could be from cystitis versus pyelonephritis. Given her hi story of lithotripsy and ureteral stones, concern would be for the beginnings of sepsis from ureteral stone. I reviewed her prior ED visit and she did have a 2 mm stone but this was on the left. Additionally, she usually sees Dr. Rodriguez. History & Record Review Discussion w/independent historian: Patient Discharge Plan Triage Chief Complaint: Flank Pain ED Provider: Deacon Le Dx/Rx/DC Orders Prescriptions: No Action bupropion HCl [Wellbutrin SR] 150 mg tablet sustained-release 12 hr 150 mg PO QDAY lorazepam 1 mg tablet 1 mg PO BID PRN PRN (Reason: anxiety) ondansetron 8 mg tablet,disintegrating 8 mg PO Q8H PRN (Reason: nausea and vomiting) Qty: 10 0RF citalopram 40 mg tablet 40 mg PO DAILY ciprofloxacin HCl [Cipro] 250 mg tablet 250 mg PO BID Qty: 6 0RF ondansetron 8 mg tablet,disintegrating 8 mg PO Q8H PRN (Reason: nausea and vomiting) Qty: 10 0RF oxycodone-acetaminophen 5-325 mg tablet 1 tab PO Q8H PRN (Reason: pain) 3 Days Qty: 10 0RF tamsulosin [Flomax] 0.4 mg capsule 0.4 mg PO DAILY 14 Days Qty: 14 0RF oxycodone-acetaminophen [Endocet] 5-325 mg tablet 1 tab PO Q6H PRN (Reason: pain) 1 Days Qty: 4 0RF acyclovir 400 mg tablet See Rx Instructions .ROUTE .COMPLEX Qty: 60 12RF Dose Instruction: take 1 tablet by mouth twice a day Rx Instructions: take 1 tablet by mouth twice a day Primary Care Provider: Blas Woodson Referrals: Blas Woodson DO [Primary Care Provider] - Print Language: Omani
--- NOTE | 2025-02-12 10:32 | EX.ED.DYSGE1 ---
HPI History of Present Illness Chief Complaint: Flank Pain Narrative Narrative: 30-year-old female past medical history of previous kidney stones, depression and anxiety, status post lithotripsy by approximately 2 months, presents with 2 days of bodyaches, fever, and low back pain. States she was having right flank pain as well. Denies any cough or shortness of breath, no runny nose. No dysuria or hematuria. Started having back pain but was having body aches all over as well. She has been taking Aleve and Tylenol. She and her mother present as they were concerned that she might have fever and chills with a kidney stone as she was having more right flank pain. Denies other exacerbating or alleviating factors. 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 , currently Genital herpes OCD (obsessive compulsive disorder) Anxiety Home Medications ?Medication ?Instructions ?Recorded ?Last Taken ?Type bupropion HCl 150 mg tablet,12 hr 150 mg PO DAILY depression 07/16/24 02/11/25 History sustained-release (Wellbutrin SR) lorazepam 1 mg tablet 1 mg PO BID PRN PRN anxiety 10/14/24 Unknown History citalopram 40 mg tablet 40 mg PO DAILY 12/31/24 02/11/25 History ondansetron 8 mg disintegrating 8 mg PO Q8H PRN nausea and 01/01/25 Unknown Rx tablet vomiting #10 tabs acyclovir 400 mg tablet 400 mg PO BID PRN herpes 02/12/25 Unknown History Allergy/AdvReac Type Severity Reaction Status Date / Time amoxicillin (Amoxicillin) Allergy Rash Verified 02/12/25 10:19 Penicillins Allergy Rash Verified 02/12/25 10:19 Surgical History Hx of cystoscopy H/O foot surgery H/O dilation and curettage Social History adopted: No household members: family housing: house number of children: 3 current occupational status: employed current occupation: [employer] pets and animals: Yes Smoking Status: Current every day smoker tobacco type: cigarettes second hand exposure: No alcohol intake: current details: social- not while substance use type: does not use seatbelt use: always do you feel safe at home: Yes additional social history: Spouse: Ashon- student ([employer]- 6, Wes-11) ROS ROS ED ROS Narrative Review of systems positive for bilateral low back pain right greater than left, right flank pain, fever, multiple myalgias/body aches. Denies dysuria or hematuria. No rhinorrhea, no cough or shortness of breath. EXAM Physical Exam Narrative Exam Narrative: Afebrile. Vital signs noted. Nontoxic-appearing. Cardiovascular examination reveals mild tachycardia. Lungs are clear to auscultation bilaterally. Mild tachypnea. Abdomen is soft nontender with normoactive bowel sounds. No CVA tenderness to percussion bilaterally. Full range of motion of extremities, neurological examination nonfocal, nonlateralizing. Const Vital Signs: 02/12/25 10:15 02/12/25 10:18 02/12/25 11:58 Temperature 99.7 F H 99.7 F H Temperature Source Oral Oral Pulse Rate 104 H 104 H 97 Respiratory Rate 19 H 19 H 22 H Blood Pressure 111/79 111/79 112/59 L Blood Pressure Mean 89 89 76 Pulse Ox 100 100 98 Oxygen Delivery Method Room Air Room Air 02/12/25 11:58 Temperature 101 F H Temperature Source Temporal Pulse Rate 97 Respiratory Rate 22 H Blood Pressure 112/59 L Blood Pressure Mean 76 Pulse Ox 98 Oxygen Delivery Method MDM MDM MDM Narrative Medical decision making narrative: The differential diagnosis includes a viral syndrome including COVID versus influenza versus RSV but she is not really showing upper respiratory symptoms. Fever and back pain could be from cystitis versus pyelonephritis. Given her history of lithotripsy and ureteral stones, concern would be for the beginnings of sepsis from ureteral stone. I reviewed her prior ED visit and she did have a 2 mm stone but this was on the left. Additionally, she usually sees Dr. Rodriguez. I reviewed her laboratory work and she has normal white count of 7.3 with hemoglobin stable at 11.6, hematocrit 33.6, platelet count 252. Sodium slightly low at 132 which I think is nonspecific, other electrolytes grossly unremarkable with BUN of 7 and creatinine 0.93. Serum is negative. Urinalysis shows no evidence of infection with 0-5 white cells and 0 RBCs. There are 5-10 squamous epithelial cells. I feel this is more of a contaminated specimen and I do not feel antibiotics are indicated. I reviewed her respiratory swab and she is negative for COVID, influenza A and B, and RSV. She did have elevated temperature so she was given ketorolac 15 mg intravenously. I reviewed the radiology report of the CT flank which shows no evidence of an obstructive stone, no acute process. No hydronephrosis. In discussion with the patient, she is not having symptoms of pneumonia with cough or shortness of breath. I discussed the utility of a chest x-ray with her, but through shared decision making, she declines. At this point in time, I feel she probably has more of a viral syndrome. I feel she can be discharged to follow-up with her primary care provider. Return instructions to the emergency department were reviewed. Disposition is discharged home in stable condition. History & Record Review Discussion w/independent historian: Patient Additional record(s) reviewed:: Prior ED visit and Prior labs Lab Data Attestation: I reviewed the patient's lab results. Labs: Laboratory Results - last 24 hr 02/12/25 02/12/25 10:35 10:47 WBC 7.3 RBC 3.83 L Hgb 11.6 L Hct 33.6 L MCV 87.7 MCH 30.3 MCHC 34.5 RDW Std Deviation 39.5 RDW Coeff of Dilan 12.2 Plt Count 252 MPV 10.0 Immature Gran % (Auto) 0.400 Neut % (Auto) 77.9 H Lymph % (Auto) 11.5 L Boyle % (Auto) 10.0 Eos % (Auto) 0.1 Baso % (Auto) 0.1 Absolute Neuts (auto) 5.7 Absolute Lymphs (auto) 0.84 Nucleated RBC % 0 Sodium 132 L Potassium 3.9 Chloride 100 Carbon Dioxide 22.1 Anion Gap 10 BUN 7 Creatinine 0.93 Estim Creat Clear Calc 111.05 Est GFR (MDRD) Non-Af 85 BUN/Creatinine Ratio 8.0 L Glucose 79 Calcium 8.1 Serum , Qual NEGATIVE Urine Color Yellow Urine Clarity Clear Urine pH 8.0 Ur Specific [place] 1.015 Urine Protein 15 H Urine Glucose (UA) Normal Urine Ketones Negative Urine Occult Blood 25 H Urine Nitrite Negative Urine Bilirubin Negative Urine Urobilinogen Normal Ur Leukocyte Esterase 25 H Urine RBC 0 SEEN Urine WBC 0-5 SEEN Ur Squamous Epith Cells 5-10 SEEN Urine Bacteria 0 SEEN Urine Mucus 0 SEEN Radiography Diagnostic Testing: Clinical Impression(s) from Imaging Studies Abdomen/Pelvis CT 02/12/25 11:35 IMPRESSION: There is a 0.4 cm solid peripheral nodule in the left lung base, image 26/144, unchanged. The liver shows low-density consistent with fatty infiltration, Hounsfield units = 35. There is no renal stone or hydronephrosis. Reading Location: [facility] Discharge Plan Triage Chief Complaint: Flank Pain ED Provider: Deacon Le Dx/Rx/DC Orders Clinical Impression: Fever, Body aches, Viral syndrome, Low back pain Instructions: ED Fever Control (Adult), ED Flank Pain, Uncertain Cause, ED Viral Syndrome (Adult) Prescriptions: No Action bupropion HCl [Wellbutrin SR] 150 mg tablet sustained-release 12 hr 150 mg PO DAILY lorazepam 1 mg tablet 1 mg PO BID PRN PRN (Reason: anxiety) acyclovir 400 mg tablet 400 mg PO BID PRN (Reason: herpes) citalopram 40 mg tablet 40 mg PO DAILY ondansetron 8 mg tablet,disintegrating 8 mg PO Q8H PRN (Reason: nausea and vomiting) Qty: 10 0RF Primary Care Provider: Blas Woodson Referrals: Blas Woodson DO [Primary Care Provider] - 3-5 Days if not improving Activity Restrictions/Additional Instructions: Continue Tylenol and/or ibuprofen as needed for pain and fever. Return with new or worsening symptoms. Follow-up with your primary care provider in 3-5 days if not improving. Print Language: Irish Disposition Disposition: Home, Self Care
[2025-02-12 10:47] LABS: Absolute Lymphocyte Count 0.84 X10^3/uL (0.83-4.51); Absolute Neutrophil Count 5.7 X10^3/uL (2.0-7.7); Basophil# 0.01 X10^3/uL; Basophil% 0.1 % (0-1); Eosinophil# 0.01 X10^3/uL; Eosinophils% 0.1 % (0-5); Hematocrit 33.6 % (37-47); Hemoglobin 11.6 g/dL (12.0-15.0); Lymphocyte # 0.84 X10^3/ul (0.83-4.51); Lymphocyte % 11.5 % (19-41); Mean Corp Hgb Conc 34.5 g/dL (32-36); Mean Corpuscular Hgb 30.3 pg (27.0-32.0); Mean Corpuscular Volume 87.7 fL (81-99); Monocyte# 0.73 X10^3/uL; NRBC Flagged by Analyzer 0 % (0-5); Neutrophil # 5.68 X10^3/uL (2.7-7.7); Neutrophil % 77.9 % (47-70); Platelet Count 252 K/mm3 (150-450); RBC Distribution Width CV 12.2 % (11.6-14.6); RBC Distribution Width SD 39.5 fl (35.1-43.9); Red Blood Count 3.83 M/mm3 (4.2-5.4); White Blood Count 7.3 K/mm3 (4.4-11.0)
[2025-02-12 10:56] LABS: Bacteria 0 SEEN /hpf (None Seen); Mucous, Urine 0 SEEN /hpf (<or=2+); Red Blood Cells-Urine 0 SEEN /hpf (0-5)
[2025-02-12 11:02] LABS: Color, Urine Yellow (Yellow); Glucose, Dipstick Normal (Normal); Ketone-Dipstick Negative (Negative); Leukocyte Esterase-Dipstick 25 /ul (Negative); Nitrite-Dipstick Negative (Negative); Occult Blood-Urine 25 /ul (Negative); Protein-Dipstick 15 mg/dl (Negative); Specific Gravity, Urine 1.015 (1.002-1.030); Urine Bilirubin Dipstick Negative (Negative); Urine Clarity Clear (Clear); Urine Urobilinogen Normal (Normal)
[2025-02-12 11:12] LABS: Squamous Epithelial Cells - UA 5-10 SEEN /hpf (5-10); White Blood Cells 0-5 SEEN /hpf (0-5)
[2025-02-12 11:21] LABS: Internal QC Validated? YES +Cl - CLEAR BKGD; Pregnancy, Serum, hCG Quali. NEGATIVE Negative
[2025-02-12 11:23] LABS: Anion Gap 10 (5-15); BUN 7 mg/dL (4-19); Calcium,Total 8.1 mg/dL (7.6-11.0); Carbon Dioxide 22.1 mmol/L (21.0-32.0); Chloride 100 mmol/L (98-108); Creatinine, Serum 0.93 mg/dL (0.70-1.20); EST Glomerular Filtration Rate 85 (>60); Estimated Creatinine Clearance 111.05 ml/min (50-250); Glucose 79 mg/dL (70-99); Potassium 3.9 mmol/L (3.3-5.1); Sodium Level 132 mmol/L (133-145)
--- NOTE | 2025-02-12 11:35 | CT_ITS ---
PROCEDURE: ABDOMEN/PELVIS WITHOUT CONT 02/12/2025 REASON FOR EXAM: KIDNEY STONE fever, right-sided abdominal pain TECHNIQUE: Abdomen and pelvis CT without intravenous contrast. Noncontrast technique limits evaluation of the abdominal and pelvic viscera. Coronal and Sagittal reconstruction series were provided. One or more dose reduction techniques were used (e.g., Automated exposure control, adjustment of the mA and/or kV according to patient size, use of iterative reconstruction technique). DLP = 975.99 mGy-cm PATIENT PREPARATION: Per protocol ORAL CONTRAST TYPE: None. COMPARISON: December 31, 2024, October 17, 2024 FINDINGS: Lung bases: Breast implants are noted. There is a 0.4 cm solid peripheral nodule in the left lung base, image 26/144, unchanged. Liver: The liver shows low-density consistent with fatty infiltration, Hounsfield units = 35. Gallbladder: Unremarkable Spleen: Measures 12 cm Pancreas: Unremarkable Adrenals: Unremarkable Kidneys: There is no renal stone or hydronephrosis. The right renal stone on the prior is no longer visible. Bladder: Reproductive Organs: Clips are noted in the right and left pelvis. Bowel: There is a moderate stool load. The small-bowel loops are not distended. Appendix: Unremarkable, image 89/144. Lymph nodes: There is no pathologic adenopathy by size criteria. Vasculature: Unremarkable Peritoneum / Retroperitoneum: There is no free air or free fluid. Bones: Unremarkable CT/Abdomen/Pelvis without Cont IMPRESSION: There is a 0.4 cm solid peripheral nodule in the left lung base, image 26/144, unchanged. The liver shows low-density consistent with fatty infiltration, Hounsfield unit s = 35. There is no renal stone or hydronephrosis. Reading Location: [facility]
[2025-02-12 11:58] VITALS: BP 112/59; PULSE 97; RESP 22; TEMP 38.3; O2SAT 98
[2025-02-12] MEDS: Ketorolac 15 MG/ML Vial IV (12:01)
[2025-02-12 12:45] VITALS: BP 125/75; PULSE 80; RESP 18; TEMP 37.2; O2SAT 98
== END 2025-02-12 12:46 | disposition home or self-care (01) ==
PROVIDERS: Emergency Provider Emergency Medicine; PCP Family Medicine; Visit Provider Emergency Medicine
DX: B34.9 Viral infection, unspecified (principal); M54.50 Low back pain, unspecified; F17.210 Nicotine dependence, cigarettes, uncomplicated
CPT/HCPCS: 74176; 80048; 81001; 84703; 85025; 87631; 96374; 99282; A4216

== ENCOUNTER → 2025-03-11 | Outpatient (CLI) | payer MEDICAID, SELFPAY ==
[2025-03-11 13:54] LABS: Amphetamine Urine NEGATIVE (<1000 ng/mL); Barbiturate Urine NEGATIVE (< 200 ng/mL); Benzodiazepine Urine PRESUMPTIVE POSITIVE (< 200 ng/mL); Buprenorphine Urine PRESUMPTIVE POSITIVE (< 200 ng/mL); Cocaine Urine NEGATIVE (< 300 ng/mL); Fentanyl, Urine NEGATIVE; Methadone Urine NEGATIVE (< 300 ng/mL); Opiates Urine NEGATIVE (< 300 ng/mL); Oxycodone, Urine NEGATIVE (< 100 ng/mL); PCP Urine NEGATIVE (< 25 ng/mL); THC Urine NEGATIVE (< 50 ng/mL)
== END | disposition home or self-care (01) ==
LOC: LABSPEC 12:27
PROVIDERS: PCP Family Medicine; Referring Provider Family Medicine; Visit Provider Family Medicine
DX: Z79.899 Other long term (current) drug therapy (principal)
CPT/HCPCS: 80307

== ENCOUNTER → 2025-05-27 | Outpatient (CLI) | payer MEDICAID, SELFPAY ==
[2025-05-27 12:26] LABS: Hematocrit 37.1 % (37-47); Hemoglobin 12.4 g/dL (12.0-15.0); Immature Granulocytes Count 0.010 X10^3/uL (0.0-0.0); Mean Corp Hgb Conc 33.4 g/dL (32-36); Mean Corpuscular Volume 90.0 fL (81-99); Mean Platelet Vol. 10.6 fl (6.2-12.0); NRBC Flagged by Analyzer 0 % (0-5); Platelet Count 295 K/mm3 (150-450); RBC Distribution Width CV 12.2 % (11.6-14.6); RBC Distribution Width SD 39.8 fl (35.1-43.9); Red Blood Count 4.12 M/mm3 (4.2-5.4); White Blood Count 4.9 K/mm3 (4.4-11.0)
[2025-05-27 13:16] LABS: Vitamin D,25 Hydroxy 47.2 ng/mL (30-100)
--- OUTSIDE RECORDS SUMMARY | 2025-05-27 19:18 | XMS RPT_ITS | CCD ---
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 Absolute lymphocyte countOrd ered By: Deacon Le on 02-12-2025 Lymphocytes Auto (Unsp spec) [#/Vol] 0.84 10*3/uL 0.83-4.51 [facility] Absolute neutrophil countOrd ered By: Deacon Le on 02-12-2025 Neutrophils (Bld) [#/Vol] 5.7 10*3/uL 2.0-7.7 [facility] Anion gap in Serum or Plasma Ordered By: Deacon Le on 02-12-2025 Anion gap [Moles/Vol] 10 mmol/L 5-15 [facility] Automated lymphocyte count a s percentage of total leukocytesOrdered By: Deacon Le on 02-12-2025 Lymphocytes/100 WBC Auto (Unsp spec) 11.5 % Low 19-41 [facility] BUN/creatinine ratioOrdered By: Deacon Le on 02-12-2025 Urea nitrogen/Creatinine [Mass ratio] 8.0 mg/mg Low 10-20 [facility] Basic Metabolic Profile (BMP )on 02-12-2025 BUN/CRE 8.0 RATIO Low - [facility] Comment on above: Performed By: #### L 400.0001, M100.678 #### [facility] [place], [address] Calcium [Mass/Vol] 8.1 mg/dL Normal 7.6-11.0 [facility] Comment on above: Performed By: #### L 400.0001, .8 #### [facility] [address] [place], [address] Chloride [Moles/Vol] 100 mmol/L Normal 98-108 [facility] Comment on above: Performed By: #### L 400.0001, 8 #### [facility] [address] [place], [address] CO2 [Moles/Vol] 22.1 mmol/L Normal 21.0-32.0 [facility] Comment on above: Performed By: #### L 400.0001, 8 #### [facility] [address] [place], [address] Creatinine [Mass/Vol] 0.93 mg/dL Normal 0.70-1.20 [facility] Comment on above: Performed By: #### L 400.0001, 8 #### [facility] [address] [place], [address] ECRCL 111.05 ml/min Normal 50-250 [facility] Comment on above: Performed By: #### L 400.0001, #### [facility] [address] [place], [address] GAP 10 Normal 5-15 [facility] Comment on above: Performed By: #### L 400.0001, 8 #### [facility] [address] [place], [address] GFR/1.73 sq M.predicted among non-blacks MDRD (S/P/Bld) [Vol rate/Area] 85 mL/min/{1.73_m2} Normal >60 [facility] Comment on above: Result Comment: mL/m in/1.73m2 CKD-EPI Creatinine Equation (2020) Performed By: #### L 400.0001, 8 #### [facility] [address] [place] [place], [address] Glucose [Mass/Vol] 79 mg/dL Normal 70-99 [facility] Comment on above: Performed By: #### L 400.0001, 8 #### [facility] [address] [place], [address] Potassium [Moles/Vol] 3.9 mmol/L Normal 3.3-5.1 [facility] Comment on above: Performed By: #### L 400.0001, .8 #### [facility] [address] [place], [address] Sodium [Moles/Vol] 132 mmol/L Low 133-145 [facility] Comment on above: Performed By: #### L 400.0001, 8 #### [facility] [address] [place], [address] Urea nitrogen [Mass/Vol] 7 mg/dL Normal 4-19 [facility] Comment on above: Performed By: #### L 400.0001, 8 #### [facility] [address] [place], [address] Basophil percentageOrdered B y: Deacon Le on 02-12-2025 Basophils/100 WBC (Bld) 0.1 % 0-1 [facility] Bilirubin Test strip Ql (U)O rdered By: Deacon Le on 02-12-2025 Bilirubin Ql (U) Negative Negative [facility] CBC W/Diff, Automatedon Absolute Lymph 0.84 X10 3/uL Normal 0.83-4.51 [facility] Comment on above: Performed By: #### L 400.0001, M18 #### [facility] [address] [place], [address] Absolute Neut 5.7 X10 3/uL Normal 2.0-7.7 [facility] Comment on above: Performed By: #### L 400.0001, #### [facility] [address] [place], [address] Basophils/100 WBC (Bld) 0.1 % Normal 0-1 [facility] Comment on above: Performed By: #### L 400.0001, #### [facility] [address] [place], [address] Eosinophils/100 WBC (Bld) 0.1 % Normal 0-5 [facility] Comment on above: Performed By: #### L 400.0001, #### [facility] [address] [place], [address] Erythrocyte distribution width (RBC) [Ratio] 12.2 % Normal 11.6-14.6 [facility] Comment on above: Performed By: #### L 400.0001, #### [facility] [address] [place], [address] Hematocrit (Bld) [Volume fraction] 33.6 % Low 37-47 [facility] Comment on above: Performed By: #### L 400.0001, #### [facility] [address] [place], [address] Hemoglobin (Bld) [Mass/Vol] 11.6 g/dL Low 12.0-15.0 [facility] Comment on above: Performed By: #### L 400.0001, #### [facility] [address] [place], [address] IG% 0.400 Normal 0.0-0.9 [facility] Comment on above: Result Comment: IG% - Immature Granulocytes (promyelocytes, myelocytes and metamyelocytes) > 1% indicates that a LEFT SHIFT is Present. Performed By: #### L 400.0001, #### [facility] [address] [place], [address] Lymphocytes/100 WBC (Bld) 11.5 % Low 19-41 [facility] Comment on above: Performed By: #### L 400.0001, #### [facility] [address] [place], [address] MCH (RBC) [Entitic mass] 30.3 pg Normal 27.0-32.0 [facility] Comment on above: Performed By: #### L 400.0001, #### [facility] [address] [place], [address] MCHC (RBC) [Mass/Vol] 34.5 g/dL Normal 32-36 [facility] Comment on above: Performed By: #### L 400.0001, #### [facility] [address] [place], [address] MCV (RBC) [Entitic vol] 87.7 fL Normal 81-99 [facility] Comment on above: Performed By: #### L 400.0001, 8 #### [facility] [address] [place], [address] Monocytes/100 WBC (Bld) 10.0 % Normal 0-10 [facility] Comment on above: Performed By: #### L 400.0001, #### [facility] [address] [place], [address] Neutrophils/100 WBC (Bld) 77.9 % High 47-70 [facility] Comment on above: Performed By: #### L 400.0001, 8 #### [facility] [address] [place], [address] Nucleated RBC (Bld) [#/Vol] 0 10*3/uL Normal 0-5 [facility] Comment on above: Performed By: #### L 400.0001, #### [facility] [address] [place], [address] Platelet mean volume (Bld) [Entitic vol] 10.0 fL Normal 6.2-12.0 [facility] Comment on above: Performed By: #### L 400.0001, #### [facility] [address] [place], [address] Platelets (Bld) [#/Vol] 252 10*3/uL Normal 150-450 [facility] Comment on above: Performed By: #### L 400.0001, #### [facility] [address] [place], [address] RBC (Bld) [#/Vol] 3.83 10*6/uL Low 4.2-5.4 [facility] Comment on above: Performed By: #### L 400.0001, #### [facility] [address] [place], [address] RDW SD 39.5 fl Normal 35.1-43.9 [facility] Comment on above: Performed By: #### L 400.0001, #### [facility] [address] [place], [address] WBC (Bld) [#/Vol] 7.3 10*3/uL Normal 4.4-11.0 [facility] Comment on above: Performed By: #### L 400.0001, #### [facility] [address] [place], [address] Carbon dioxide, total [Moles /volume] in Central venous bloodOrdered By: Deacon Le on 02-12-2025 CO2 [Moles/Vol] 22.1 mmol/L 21.0-32.0 [facility] Chloride assayOrdered By: Rob Le on 02-12-2025 Chloride [Moles/Vol] 100 mmol/L 98-108 [facility] Emergency Department Summary on 02-12-2025 Emergency Department Summary [facility] Medical Records Department [address] [place] [address] Emergency Department Summary 02/12/25 MR#: [id number] Acct: [id number] Name: PENNIE KOENIG Rep #: [id number] : 1995 30 From: Deacon Le MD PCP: Dr. Lashawn Avila, DO Status:REG ER Location: ED HPI History of Present Illness Chief Complaint: Flank Pain Narrative Narrative: 30-year-old female past medical history of previous kidney stones, depression and anxiety, status post lithotripsy by approximately 2 months, presents with 2 days of bodyaches, fever, and low back pain. States she was having right flank pain as well. Denies any cough or shortness of breath, no runny nose. No dysuria or hematuria. Started having back pain but was having body aches all over as well. She has been taking Aleve and Tylenol. She and her mother present as they were concerned that she might have fever and chills with a kidney stone as she was having more right flank pain. Denies other exacerbating or alleviating factors. 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 , currently Genital herpes OCD (obsessive compulsive disorder) Anxiety Home Medications ???Medication ???Instructions ???Recorded ???Last Taken ???Type bupropion HCl 150 mg tablet,12 hr 150 mg PO DAILY depression 02/11/25 History sustained-release (Wellbutrin SR) lorazepam 1 mg tablet 1 mg PO BID PRN PRN anxiety Unknown History citalopram 40 mg tablet 40 mg PO DAILY 12/31/24 02/11/25 H istory ondansetron 8 mg disintegrating 8 mg PO Q8H PRN nausea and 5 Unknown Rx tablet vomiting #10 tabs acyclovir 400 mg tablet 400 mg PO BID PRN herpes 02/12/25 Unknown History Allergy/AdvReac Type Severity Reaction Status Date / Time amoxicillin (Amoxicillin) Allergy Rash Verified 02/12/25 10:19 Penicillins Allergy Rash Verified 02/12/25 10:19 Surgical History Hx of cystoscopy H/O foot surgery H/O dilation and curettage Social History adopted: No household members: family housing: house number of children: 3 current occupational status: employed current occupation: [employer] pets and animals: Yes Smoking Status: Current every day smoker tobacco type: cigarettes second hand exposure: No alcohol intake: current details: social- not while substance use type: does not use seatbelt use: always do you feel safe at home: Yes additional social history: Spouse: Ashon- student ([employer]- 6, [employer]-11) ROS ROS ED ROS Narrative Review of systems positive for bilateral low back pain right greater than left, right flank pain, fever, multiple myalgias/body aches. Denies dysuria or hematuria. No rhinorrhea, no cough or shortness of breath. EXAM Physical Exam Narrative Exam Narrative: Afebrile. Vital signs noted. Nontoxic-appearing. Cardiovascular examination reveals mild tachycardia. Lungs are clear to auscultation bilaterally. Mild tachypnea. Abdomen is soft nontender with normoactive bowel sounds. No CVA tenderness to percussion bilaterally. Full range of motion of extremities, neurological examination nonfocal, nonlateralizing. Const Vital Signs: 02/12/25 10:15 02/12/25 10:18 02/12/25 11:58 Temperature 99.7 F H 99.7 F H Temperature Source Oral Oral Pulse Rate 104 H 104 H 97 Respiratory Rate 19 H 19 H 22 H Blood Pressure 111/79 111/79 112/59 L Blood Pressure Mean 89 89 76 Pulse Ox 100 100 98 Oxygen Delivery Method Room Air Room Air 02/12/25 11:58 Temperature 101 F H Temperature Source Temporal Pulse Rate 97 Respiratory Rate 22 H Blood Pressure 112/59 L Blood Pressure Mean 76 Pulse Ox 98 Oxygen Delivery Method MDM MDM MDM Narrative Medical decision making narrative: The differential diagnosis includes a viral syndrome including COVID versus influenza versus RSV but she is not really showing upper respiratory symptoms. Fever and back pain could be from cystitis versus pyelonephritis. Given her history of lithotripsy and ureteral stones, concern would be for the beginnings of sepsis from ureteral stone. I reviewed her prior ED visit and she did have a 2 mm stone but this was on the left. Additionally, she usually sees Dr. Rodriguez. I reviewed her laboratory work and she has normal white count of 7.3 with hemoglobin stable at 11.6, hematocrit 33.6, platelet count 252. Sodium slightly low at 132 which I think is nonspecific, other electrolytes (more content not included)... Normal [facility] Eosinophil percentageOrdered By: Deacon Le on 02-12-2025 Eosinophils/100 WBC (Bld) 0.1 % 0-5 [facility] Erythrocyte distribution wid th ratioOrdered By: Deacon Le on 02-12-2025 Erythrocyte distribution width (RBC) [Ratio] 12.2 % 11.6-14.6 [facility] Erythrocyte distribution wid th standard deviationOrdered By: Deacon Le on 02-12-2025 Erythrocyte distribution width (RBC) [Ratio] 39.5 fl 35.1-43.9 [facility] Glomerular filtration rate ( GFR) estimation/1.73 sq m using serum, plasma, or whole bOrdered By: Deacon Le on 02-12-2025 GFR/1.73 sq M.predicted among non-blacks MDRD (S/P/Bld) [Vol rate/Area] 85 mL/min/{1.73_m2} >60 [facility] Comment on above: mL/min/1.73m2 CKD-EP I Creatinine Equation (2020) Hematocrit Auto (Bld) [Volum e fraction]Ordered By: Deacon Le on 02-12-2025 Hematocrit (Bld) [Volume fraction] 33.6 % Low 37-47 [facility] Hemoglobin measurementOrdere d By: Deacon Le on 02-12-2025 Hemoglobin (Bld) [Mass/Vol] 11.6 g/dL Low 12.0-15.0 [facility] Immature granulocytes/100 WB C Auto (Bld)Ordered By: Deacon Le on 02-12-2025 Immature granulocytes/100 WBC (Bld) 0.400 % 0.0-0.9 [facility] Comment on above: IG% - Immature Granu locytes (promyelocytes, myelocytes and metamyelocytes) > 1% indicates that a LEFT SHIFT is Present. Influenza virus A and B and SARS-CoV-2 (COVID-19) and Respiratory syncytial virus RNAOrdered By: Deacon Le on 02-12-2025 SARS-CoV-2 (COVID-19) RNA JANNIE+probe Ql (Unsp spec) [facility] Ketones Test strip Ql (U)Ord ered By: Deacon Le on 02-12-2025 Ketones Ql (U) Negative Negative [facility] M100.678on 02-12-2025 M100.678 Pending SARS-CoV-2 (COVID 19) Negative INFLUENZA A Negative INFLUENZA B Negative RSV PCR Negative Normal [facility] Comment on above: Performed By: #### L 400.0001, M100.678 #### [facility] [address] [place] [address], [address] MCV (mean corpuscular volume ) determinationOrdered By: Deacon Le on 02-12-2025 MCV (RBC) [Entitic vol] 87.7 fL 81-99 [facility] Mean corpuscular hemoglobin (MCH) determinationOrdered By: Deacon Le on 02-12-2025 MCH (RBC) [Entitic mass] 30.3 pg 27.0-32.0 [facility] Mean corpuscular hemoglobin concentration (MCHC) determinationOrdered By: Deacon Le on 02-12-2025 MCHC (RBC) [Mass/Vol] 34.5 g/dL 32-36 [facility] Mean platelet volume determi nationOrdered By: Deacon Le on 02-12-2025 Platelet mean volume (Bld) [Entitic vol] 10.0 fL 6.2-12.0 [facility] Microscopic analysis of urin e for red blood cells (RBC)Ordered By: Deacon Le on 02-12-2025 Microscopic analysis of urine for red blood cells (RBC) 0 SEEN /hpf 0-5 [facility] Monocyte percentageOrdered B y: Deacon Le on 02-12-2025 Monocytes/100 WBC (Bld) 10.0 % 0-10 [facility] Mucus LM Ql (Urine sed)Order ed By: Deacon Le on 02-12-2025 Mucus Ql (Urine sed) 0 SEEN /hpf [facility] Neutrophil percentageOrdered By: Deacon Le on 02-12-2025 Neutrophils/100 WBC (Bld) 77.9 % High 47-70 [facility] Nitrite Test strip Ql (U)Ord ered By: Deacon Le on 02-12-2025 Nitrite Ql (U) Negative Negative [facility] Nucleated red blood cell per centageOrdered By: Deacon Le on 02-12-2025 Nucleated RBC/100 WBC (Bld) [Ratio] 0 % 0-5 [facility] Platelet countOrdered By: Rob Le on 02-12-2025 Platelets (Bld) [#/Vol] 252 10*3/uL 150-450 [facility] Potassium measurement (mass/ volume)Ordered By: Deacon Le on 02-12-2025 Potassium (Unsp spec) [Mass/Vol] 3.9 mmol/L 3.3-5.1 [facility] ,Serum,hCG Quali.on 02-12-2025 HCG, SERUM QUAL Negative Normal [facility] Comment on above: Performed By: #### L 400.0001, M100.678 #### [facility] [address] [place] [address], [address] Protein Test strip Ql (U)Ord ered By: Deacon Le on 02-12-2025 Protein Ql (U) 15 mg/dl High Negative [facility] RBC Auto (Bld) [#/Vol]Ordere d By: Deacon Le on 02-12-2025 RBC (Bld) [#/Vol] 3.83 10*6/uL Low 4.2-5.4 [facility] Serum beta-hCG test, qualita tiveOrdered By: Deacon Le on 02-12-2025 Beta HCG ( test) Ql Negative [facility] Serum creatinine measurement (mass/volume)Ordered By: Deacon Le on 02-12-2025 Creatinine [Mass/Vol] 0.93 mg/dL 0.70-1.20 [facility] Serum glucose measurement (m ass/volume)Ordered By: Deacon Le on 02-12-2025 Glucose [Mass/Vol] 79 mg/dL 70-99 [facility] Serum or plasma calcium eliezer urement (mass/volume)Ordered By: Deacon Le on 02-12-2025 Calcium [Mass/Vol] 8.1 mg/dL 7.6-11.0 [facility] Serum or plasma urea nitroge n measurement (mass/volume)Ordered By: Deacon Le on 02-12-2025 Urea nitrogen [Mass/Vol] 7 mg/dL 4-19 [facility] Sodium levelOrdered By: Deacon Le on 02-12-2025 Sodium [Moles/Vol] 132 mmol/L Low 133-145 [facility] Squamous epithelial cells de tection in urine sediment by light microscopyOrdered By: Deacon Le on 02-12-2025 Epithelial cells.squamous LM Ql (Urine sed) 5-10 SEEN /hpf 5-10 [facility] Urinalysis, Completeon 02-12 EPI,SQUAMOUS 5-10 SEEN Normal 5-10 [facility] Comment on above: Order Comment: CLEAN CATCH Performed By: #### L 400.0001, M100.678 #### [facility] [address] [place], [address] WBC 0-5 SEEN Normal 0-5 [facility] Comment on above: Order Comment: CLEAN CATCH Performed By: #### L 400.0001, M100.678 #### [facility] [address] [place], [address] BACTERIA 0 SEEN Normal None Seen [facility] Comment on above: Order Comment: CLEAN CATCH Performed By: #### L 400.0001, M100.678 #### [facility] [address] [place], [address] Mucus Ql (Urine sed) 0 SEEN Normal [facility] Comment on above: Order Comment: CLEAN CATCH Performed By: #### L 400.0001, M100.678 #### [facility] [address] [place], [place], [id number] RBC 0 SEEN Normal 0-5 [facility] Comment on above: Order Comment: CLEAN CATCH Performed By: #### L 400.0001, M100.678 #### [facility] [address] [place], [place], [id number] Urine clarityOrdered By: Larisa Le on 02-12-2025 Clarity (U) Clear Clear [facility] Urine color determinationOrd ered By: Deacon Le on 02-12-2025 Color (U) Yellow Yellow [facility] Urine glucose detectionOrder ed By: Deacon Le on 02-12-2025 Glucose Ql (U) Normal mg/dl Normal [facility] Urine leukocyte esterase det ection by dipstickOrdered By: Deacon Le on 02-12-2025 Leukocyte esterase Test strip Ql (U) 25 /ul High Negative [facility] Urine pHOrdered By: Deacon menard on 02-12-2025 pH (U) 8.0 [pH] 5.0 - 8.0 [facility] Urine sediment bacteria coun t by microscopy (number/high power field)Ordered By: Deacon Le on 02-12-2025 Bacteria LM.HPF (Urine sed) [#/Area] 0 /[HPF] None Seen [facility] Urine specific gravity measu rementOrdered By: Deacon Le on 02-12-2025 Specific gravity (U) [Rel density] 1.015 1.002-1.030 [facility] Urine urobilinogen measureme ntOrdered By: Deacon Le on 02-12-2025 Urobilinogen Ql (U) Normal mg/dl Normal [facility] White blood cell (WBC) count Ordered By: Deacon Le on 02-12-2025 WBC (Bld) [#/Vol] 7.3 10*3/uL 4.4-11.0 [facility] White blood cell countOrdere d By: Deacon Le on 02-12-2025 White blood cell count 0-5 SEEN /hpf 0-5 [facility] Abdomen Single Viewon 2024 Abdomen Single View [facility] Imaging Services [address] [place] [address] Abdomen Single View MR#: [id number] Acct: [id number] Name: PENNIE KOENIG Rep #: [id number] : 1995 F 30 From: Hailey [place], MD PCP: Dr. Lashawn Avila, Status: REG CLI Study: Abdomen Single View Date of Exam: 01/21/25 Exam# [id number] Ordering Dr: Brittany Rodriguez MD PROCEDURE: ABDOMEN SINGLE VIEW 01/21/2025 REASON FOR EXAM: KUB- KIDNEY STONES TECHNIQUE: Single view abdomen. COMPARISON: CT abdomen pelvis 12/31/2024. FINDINGS: Bowel gas: Bowel gas pattern is normal. No evidence of bowel obstruction. Calcifications: No radiopaque densities overlying the expected regions of the bilateral kidneys. Bones: The bones are unremarkable. Other: Left lower quadrant and pelvic surgical clips. RAD/Abdomen Single View IMPRESSION: No radiopaque densities overlying the expected regions of the bilateral kidneys. Reading Location: [facility] CC: Dr. Brittany Rodriguez MD; Dr. Lashawn Avila DO Travel Ot: Signed Normal [facility] Discharge Instructionon 12-14 Discharge Instruction [facility] Medical Records Department [address] [place] [address] Instructions for Home/Discharge Instructions 01/01/25 1555 MR#: [id number] Acct: [id number] Name: PENNIE KOENIG Rep #: [id number] : 1995 29 From: Brittany Rodriguez MD PCP: Dr. Lashawn Avila, DO Status:[place] [facility] [place] Instructions Diet Discharge Diet: No restrictions Activity Discharge Activity: Return to Normal Activity Dressing / Incision Call your doctor if you observe: Fever of 101 or Higher, Inability to urinate and Inability to have a bowel movement Follow Up Care Please Follow Up With: Brittany Rodriguez MD When: In the office with a KUB in 2 to 3 weeks, the office will call for follow-up appointment. Test Results: Test results from this visit will be discussed in further detail at your follow-up appointment, if applicable. Discharge Plan Admission Attending Provider: Brittany Rodriguez Primary Care Provider: Lashawn Avila Instructions Print Language: Bahamian Discharge Orders/Prescription s Prescriptions: New ciprofloxacin HCl [Cipro] 250 mg tablet 250 mg PO BID Qty: 6 0RF ondansetron 8 mg tablet,disintegrati ng 8 mg PO Q8H PRN (Reason: nausea and vomiting) Qty: 10 0RF oxycodone-acetamino phen 5-325 mg tablet 1 tab PO Q8H PRN (Reason: pain) 3 Days Qty: 10 0RF Continued bupropion HCl [Wellbutrin SR] 150 mg tablet sustained-release 12 hr 150 mg PO QDAY lorazepam 1 mg tablet 1 mg PO BID PRN PRN (Reason: anxiety) ondansetron 8 mg tablet,disintegrati ng 8 mg PO Q8H PRN (Reason: nausea and vomiting) Qty: 10 0RF citalopram 40 mg tablet 40 mg PO DAILY tamsulosin [Flomax] 0.4 mg capsule 0.4 mg PO DAILY 14 Days Qty: 14 0RF oxycodone-acetamino phen [Endocet] 5-325 mg tablet 1 tab PO Q6H PRN (Reason: pain) 1 Days Qty: 4 0RF acyclovir 400 mg tablet See Rx Instructions .ROUTE .COMPLEX Qty: 60 12RF Dose Instruction: take 1 tablet by mouth twice a day Rx Instructions: take 1 tablet by mouth twice a day Referrals / Follow Up: Lashawn Avila DO [Primary Care Provider] - Disposition Disposition (needs filled in before D/C Order can be placed): Home, Self Care 01/01/25 9339 Brittany Rodriguez MD CC: Dr. Lashawn Avila DO Signed Normal [facility] MR/POSTOP.ANEdonna 01-01-2025 MR/POSTOP.[facility] Medical Records Department [address] [place] [address] Anesthesia Postop Eval I 01/01/25 1621 MR#: [id number] Acct: [id number] Name: PENNIE KOENIG Rep #: [id number] : 1995 29 From: Chanda Estrella CRNA PCP: Dr. Lashawn Avila, DO Status:REG SDC Y Race: C Location: [place] [address] Anesthesia: Postop Eval I Current Vital Signs Temperature: 97.4 F Pulse Rate: 118 Blood Pressure: 126/68 Respiratory Rate: 16 Pulse Ox: 100 Oxygen Delivery Method: Room Air Assessment Airway patent: Yes Spontaneous unlabored respirations: Yes Mental status: Awake and Calm nausea: No Vomiting: No Anesthesia Complication: No Fluid Hydration Crystalloid volume administer (ml): 600 Total IV fluid infused: 600 Progress Note Anesthesia document: Postop Eval 1 completed: Yes 01/01/25 1621 Date Chanda Estrella [facility] Cosigner Signature: Date CC: Signed Normal [facility] [id number] 01-01-2025 [facility] Medical Records Department [address] [place] [address] Anesthesia Postop Eval II 01/01/25 1634 MR#: [id number] Acct: [id number] Name: PENNIE KOENIG Rep #: [id number] : 1995 29 From: Danelle Dave PCP: Dr. Lashawn Avila, DO Status:REG SDC Y Race: C Location: [place] [address] Anesthesia Postop Eval I Sum Postop Eval Completion status Anesthesia document: Postop Eval 1 completed: Yes Anesthesia Postop Eval I Summary Anesthesia Postop Eval I Summary: Anesthesia Postop Eval I: Assessment Summary Airway patent Yes 01/01/25 16:21 [facility].SKOBY Spontaneous unlabored Yes 01/01/25 16:21 [facility].SKOBY respirations Mental status Awake,Calm 01/01/25 16:21 [facility].SKOBY nausea No 01/01/25 16:21 [facility].SKOBY Vomiting No 01/01/25 16:21 [facility].SKOBY Anesthesia Postop Eval I: Fluid Summary Crystalloid volume administer 600 01/01/25 16:21 [facility].SKOBY (ml) Colloids volume administered ( ml) Blood Product volume administered (ml) Total IV fluid infused 600 01/01/25 16:21 [facility].SKOBY Anesthesia Postop Eval I: Summary Notes Anesthesia Complication No 01/01/25 16:21 [facility].SKOBY Anesthesia Complication Comment: Post-operative progress note Anesthesia: Postop Eval II Evaluation Mental status: Awake Pain Level: 2 nausea: No Vomiting: No 01/01/25 1634 Date Danelle Zayas Signature: Date CC: Signed Normal [facility] Operative Reporton 5 Operative Report [facility] Medical Records Department [address] [place] [address] Operative Report 01/01/25 1558 MR#: [id number] Acct: [id number] Name: PENNIE KOENIG Rep #: [id number] : 1995 29 From: Brittany Rodriguez MD PCP: Dr. Lashawn Avila, DO Status:REG [facility] [place]: [place] [address] Operative Report (Standard) Operative Information Date of Procedure: 01/01/25 Pre-Operative Diagnosis: Right renal stones, possible left distal ureteral calculus Post-Operative Diagnosis: Right renal stones, no left ureteral calculus Surgery/Procedure Performed: Left ureteroscopy, right renal extracorporeal shockwave lithotripsy business travel consultant: No Type of Anesthesia: General RN Documented Start/Stop Times: Operation Date: 01/01/25 13:40 Case Time Into Pre-Op 01/01/25 12:27 Out of Pre-Op 01/01/25 15:11 Anesthesia Start 01/01/25 15:18 Into Room 01/01/25 15:18 Procedure Start 01/01/25 15:33 Procedure Start Time: 15:33 Procedure Stop Time: 16:05 Select all DRAINS/GRAFTS/IMPLA NTS that apply: None Estimated Blood Loss: <5cc Specimen collected: No Description of surgery: The patient is a 29-year-old female with kidney stones and a possible left ureteral calculus seen on CT scan yesterday in the emergency room. She previously did have a left extracorporal shockwave lithotripsy performed. No left renal stones were seen. Informed consent was obtained for left ureteroscopy, right renal extracorporal shockwave lithotripsy. She was taken to the operating room and placed on the operating room table. Anesthesia monitored the head, neck, airway, IV access and vital signs throughout the case. Once anesthesia was appropriate ministered she was placed into dorsolithotomy position was prepped and draped in usual sterile fashion. The semirigid ureteroscope was inserted through the urethra under direct visualization. The left ureteral orifice was identified and intubated with a 0.035 Glidewire through the ureteroscope. The ureteroscope was then reinserted alongside of the Glidewire into the left ureter and it was directly visualized all the way up to the proximal ureter with no evidence of erythema, edema, foreign body including stone. The ureteroscope and wire were then removed. She was repositioned on the table in a supine position. The right kidney stone approximately 6 mm in size was identified and 2000 shocks were applied to it. It was no longer visualized at the conclusion of the case. She was then awakened and taken to the recovery room in good condition. There were no complications during this procedure. Surgical Findings: 6 mm right stone, well fragmented at the conclusion of the case. No ureteral stones identified. Complications Complications: No Admit VTE Documentation VTE Present on Admission: Yes VTE Mechan Device Prophylaxis: SCD's VTE Pharm Prophylaxis ordered?: No Reason prophylaxis not ordered: Treatment Not Indicated 01/01/25 1605 Cosigner Signature (if applicable): CC: Dr. Brittany Rodriguez MD; Dr. Lashawn Avila DO Signed Normal [facility] ,Urineon 01-01-2025 Beta HCG ( test) Ql (U) Negative Normal [facility] Comment on above: Result Comment: Very dilute urine specimens, as indicated by a low specific gravity, may not contain financial foundations representative levels of hCG. If is still suspected, a first morning urine specimen should be collected 48 hours later and tested. Performed By: #### L 400.7600 #### [facility] [address] [facility] [place], [address] Urine testOrdered By: Lito Moralez on 01-01-2025 HCG ( test) Ql (U) Negative [facility] Comment on above: Very dilute urine sp ecimens, as indicated by a low specificgravity, may not contain financial foundations representative levels of hCG. If is still suspected, a first morning urinespecimen should be collected 48 hours later and tested. Abdomen/Pelvis without Conto n 12-31-2024 Abdomen/Pelvis without Cont [facility] Imaging Services [address] [place], [place] [address] Abdomen/Pelvis without Cont MR#: [id number] Acct: [id number] Name: PENNIE KOENIG Rep #: [id number] : 1995 F 29 From: Hang Burgess PCP: Dr. Lashawn Avila, Status: REG ER Study: Abdomen/Pelvis without Cont Date of Exam: 12/13 07/09 Exam# [id number] Ordering Dr: Roly Zabala DO PROCEDURE: ABDOMEN/PELVIS WITHOUT CONT 12/31/2024 REASON FOR EXAM: FLANK PAIN, HX OF STONES TECHNIQUE: Abdomen and pelvis CT without intravenous contrast. Coronal and Sagittal reconstruction series were provided. One or more dose reduction techniques were used (e.g., Automated exposure control, adjustment of the mA and/or kV according to patient size, use of iterative reconstruction technique). ORAL CONTRAST TYPE: None. DLP 626.6 mGy-cm. CTD 11.77mGy. COMPARISON: Abdomen and pelvis CT of 10/17/2024. FINDINGS: The visualized lung bases are unremarkable. Bilateral breast prostheses are again partially visualized. Pelvic and lower abdominal metallic densities are again present, most likely representing surgical clips. No evidence of abdominal aortic aneurysm. Stable right mid renal calculus. No left renal calculus is seen. No evidence of hydronephrosis or significant hydroureter. An approximately 2 mm calculus is seen at or near the left ureterovesicular junction. No free fluid is seen. No evidence of pneumoperitoneum. The liver, gallbladder, pancreas, spleen, and adrenal glands show no abnormality. No adenopathy is seen. The urinary bladder is distended. CT/Abdomen/Pelvis without Cont IMPRESSION: 1. Approximately 2 mm calculus seen at or near the left ureterovesicular junction. 2. No significant hydronephrosis. Reading Location: [address] CC: Dr. Lashawn Avila DO; Dr. Roly Zabala DO Travel Ot: Signed Normal [facility] Bilirubin Test strip Ql (U)O rdered By: ED PROVIDER on 12-31-2024 Bilirubin Ql (U) Negative Negative [facility] Emergency Department Summary on 12-31-2024 Emergency Department Summary [facility] Medical Records Department [address] [place] [address] Emergency Department Summary 12/31/24 MR#: [id number] Acct: [id number] Name: PENNIE KOENIG Rep #: [id number] : 1995 29 From: Roly Zabala DO PCP: Dr. Lashawn Avila DO Status:REG ER Location: ED HPI History of Present Illness Chief Complaint: Flank Pain Narrative Narrative: Patient is a 29-year-old female with a past medical history of depression, GERD, anxiety, OCD who presents to the emergency department with concern for a kidney stone. Patient states that she is having right flank pain and notes that she was up all night in pain. States that she had a few pain pills remaining from a previous ER visit as well as Zofran that she was taking but states that she is currently out of the pain pills. She states that she has a lithotripsy scheduled tomorrow with Dr. Rodriguez. Patient denies any recent sick contacts. 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 , currently Genital herpes OCD (obsessive compulsive disorder) Anxiety Home Medications ???Medication ???Instructions ???Recorded ???Last Taken ???Type bupropion HCl 150 mg tablet,12 hr 150 mg PO QDAY depression 4 Unknown History sustained-release (Wellbutrin SR) lorazepam 1 mg tablet 1 mg PO BID PRN PRN anxiety Unknown History ondansetron 8 mg disintegrating 8 mg PO Q8H PRN nausea and 5 Unknown Rx tablet vomiting #10 tabs acyclovir 400 mg tablet See Rx Instructions .Route 5 Unknown Rx .COMPLEX herpes #60 tabs citalopram 40 mg tablet 40 mg PO DAILY 12/31/24 Unknown Hi story oxycodone-acetamino phen 5 mg-325 1 tab PO Q6H PRN pain 1 day #4 tab s 12/31/24 Unknown Rx mg tablet (Endocet) tamsulosin 0.4 mg capsule (Flomax) 0.4 mg PO DAILY 14 days #14 caps 12/31/24 Unknown Rx Allergy/AdvReac Type Severity Reaction Status Date / Time amoxicillin (Amoxicillin) Allergy Rash Verified 12/31/24 11:10 Penicillins Allergy Rash Verified 12/31/24 11:10 Surgical History Hx of cystoscopy H/O foot surgery H/O dilation and curettage Social History adopted: No household members: family housing: house number of children: 3 current occupational status: employed current occupation: [employer] pets and animals: Yes Smoking Status: Current every day smoker tobacco type: cigarettes second hand exposure: No alcohol intake: current details: social- not while substance use type: does not use seatbelt use: always do you feel safe at home: Yes additional social history: Spouse: Ashon- student ([employer]- 6, [employer]-11) ROS ROS ED ROS Narrative Constitutional: Denies fevers, chills, headaches, lightness, dizziness Abdomen: Complains of right lower abdominal pain as noted above as well as nausea vomiting denies diarrhea : Denies urinary symptoms complains of concern for kidney stone as noted above Neurological: Denies numbness, weakness, tingling Musculoskeletal: Complains of right flank pain as noted above Skin: Denies rashes or lesions EXAM Physical Exam Narrative Exam Narrative: General: Patient lying in bed rest comfortably did not appear to be in acute distress Head: Atraumatic, normocephalic Eyes: PERRL bilaterally, EOMI bilateral, no conjunctival injection noted Neck: Soft, supple, trachea midline Cardiovascular: Regular rate and rhythm no murmurs gallops rubs noted Respiratory: Clear to auscultation bilaterally Abdomen: Soft, nondistended, mild tenderness to palpation in the right side of her abdomen no rebound or guarding on exam Musculoskeletal: No CVA tenderness on exam, no tenderness palpation midline of the thoracic lumbar spine Extremities: +5/5 strength in bilateral upper and lower extremities Neurological: Patient follow commands knew that she was at [facility] years 2024 Skin: Warm, dry, intact no rashes or lesions noted Const Vital Signs: 12/31/24 10:59 12/31/24 11:01 12/31/24 13:00 Temperature 97.5 F L 97.5 F L Temperature Source Oral Oral Pulse Rate 103 H 103 H 57 L Respiratory Rate 15 15 20 H Blood Pressure 120/78 120/78 Blood Pressure Mean 92 92 Pulse Ox 99 99 99 Oxygen Delivery Method Room Air Room Air Room Air MDM MDM MDM Narrative Medical decision making narrative: Patient is a 29-year-old female who presents to the emergency department the chief complaint of right flank pain radiating to her right p (more content not included)... Normal [facility] Epithelial cells.squamous LM Ql (Urine sed)Ordered By: ED PROVIDER on 12-31-2024 Epithelial cells.squamous LM.HPF (Urine sed) [#/Area] 5 /[HPF] 5-10 [facility] Glucose Ql (U)Ordered By: ED PROVIDER on 12-31-2024 Urine Glucose (UA) Normal mg/dl Normal [facility] Ketones Test strip Ql (U)Ord ered By: ED PROVIDER on 12-31-2024 Ketones Ql (U) Negative Negative [facility] Microscopic analysis of urin e for red blood cells (RBC)Ordered By: ED PROVIDER on 12-31-2024 Microscopic analysis of urine for red blood cells (RBC) 0 SEEN /hpf 0-5 [facility] Urine RBC 0 SEEN /hpf 0-5 [facility] Mucus LM Ql (Urine sed)Order ed By: ED PROVIDER on 12-31-2024 Mucus Ql (Urine sed) 0 SEEN /hpf [facility] Nitrite Test strip Ql (U)Ord ered By: ED PROVIDER on 12-31-2024 Nitrite Ql (U) Negative Negative [facility] ,Urineon 12-31-2024 Beta HCG ( test) Ql (U) Negative Normal [facility] Comment on above: Result Comment: Very dilute urine specimens, as indicated by a low specific gravity, may not contain financial foundations representative levels of hCG. If is still suspected, a first morning urine specimen should be collected 48 hours later and tested. Performed By: #### L 400.0001, 8 #### [facility] [address] [place], [address] Protein Test strip Ql (U)Ord ered By: ED PROVIDER on 12-31-2024 Protein Ql (U) 15 mg/dl High Negative [facility] Squamous epithelial cells de tection in urine sediment by light microscopyOrdered By: ED PROVIDER on 12-31-2024 Epithelial cells.squamous LM Ql (Urine sed) 5-10 SEEN /hpf 5-10 [facility] Urinalysis, Completeon 12-31 EPI,SQUAMOUS 5-10 SEEN Normal 5-10 [facility] Comment on above: Order Comment: CLEAN CATCH Performed By: #### L 400.0001, .8 #### [facility] [address] [place], [address] RBC 0 SEEN Normal 0-5 [facility] Comment on above: Order Comment: CLEAN CATCH Performed By: #### L 400.0001, M1.678 #### [facility] [address] [place], [address] WBC 0-5 SEEN Normal 0-5 [facility] Comment on above: Order Comment: CLEAN CATCH Performed By: #### L 400.0001, 8 #### [facility] [address] [place], [address] BACTERIA 0 SEEN Normal None Seen [facility] Comment on above: Order Comment: CLEAN CATCH Performed By: #### L 400.0001, M100.678 #### [facility] [address] [place], [address] Mucus Ql (Urine sed) 0 SEEN Normal [facility] Comment on above: Order Comment: CLEAN CATCH Performed By: #### L 400.0001, M100.678 #### [facility] [address] [place], [address] Urine blood detectionOrdered By: ED PROVIDER on 12-31-2024 Urine Occult Blood Negative Negative [facility] Urine clarityOrdered By: ED PROVIDER on 12-31-2024 Clarity (U) Sl. Cloudy Clear [facility] Urine color determinationOrd ered By: ED PROVIDER on 12-31-2024 Color (U) Yellow Yellow [facility] Urine glucose detectionOrder ed By: ED PROVIDER on 12-31-2024 Glucose Ql (U) Normal mg/dl Normal [facility] Urine leukocyte esterase det ection by dipstickOrdered By: ED PROVIDER on 12-31-2024 Leukocyte esterase Test strip Ql (U) 25 /ul High Negative [facility] Urine pHOrdered By: ED PROVI DANE on 12-31-2024 pH (U) 8.0 [pH] 5.0 - 8.0 [facility] Urine testOrdered By: ED PROVIDER on 12-31-2024 HCG ( test) Ql (U) Negative [facility] Comment on above: Very dilute urine sp ecimens, as indicated by a low specificgravity, may not contain financial foundations representative levels of hCG. If is still suspected, a first morning urinespecimen should be collected 48 hours later and tested. Urine sediment bacteria coun t by microscopy (number/high power field)Ordered By: ED PROVIDER on 12-31-2024 Bacteria LM.HPF (Urine sed) [#/Area] 0 /[HPF] None Seen [facility] Urine specific gravity measu rementOrdered By: ED PROVIDER on 12-31-2024 Specific gravity (U) [Rel density] 1.010 1.002-1.030 [facility] Urine urobilinogen measureme ntOrdered By: ED PROVIDER on 12-31-2024 Urobilinogen Ql (U) Normal mg/dl Normal [facility] Urobilinogen Ql (U)Ordered B y: ED PROVIDER on 12-31-2024 Urine Urobilinogen Normal mg/dl Normal [facility] White blood cell countOrdere d By: ED PROVIDER on 12-31-2024 Urine WBC 0-5 SEEN /hpf 0-5 [facility] White blood cell count 0-5 SEEN /hpf 0-5 [facility] .Auto Diffon 12-26-2024 Basophil, Absolute 0.1 10 3/mcL Normal 0.0-0.2 [facility] Comment on above: Performed By: #### U AMICAO, PREGU, UA #### [address] [address] Basophils/100 WBC (Bld) 0.9 % Normal 0.0-2.5 [facility] Comment on above: Performed By: #### U AMICAO, PREGU, UA #### [address] [address] Eosinophil, Absolute 0.1 10 3/mcL Normal 0.0-0.7 [facility] Comment on above: Performed By: #### U AMICAO, PREGU, UA #### [address] [address] Eosinophils/100 WBC (Bld) 2.3 % Normal 0.0-7.0 [facility] Comment on above: Performed By: #### U AMICAO, PREGU, UA #### [address] [address] Lymphocyte, Absolute 1.8 10 3/mcL Normal 0.9-4.3 [facility] Comment on above: Performed By: #### U AMICAO, PREGU, UA #### [address] [address] Lymphocytes/100 WBC (Bld) 27.7 % Normal 20.0-40.0 [facility] Comment on above: Performed By: #### U AMICAO, PREGU, UA #### [address] [address] Monocyte, Absolute 0.7 10 3/mcL Normal 0.1-1.4 [facility] Comment on above: Performed By: #### U AMICAO, PREGU, UA #### [address] [address] Monocytes/100 WBC (Bld) 10.5 % Normal 2.0-13.0 [facility] Comment on above: Performed By: #### U AMICAO, PREGU, UA #### [address] [address] Neutrophils/100 WBC (Bld) 58.6 % Normal 50.0-75.0 [facility] Comment on above: Performed By: #### U AMICAO PREGU, UA #### [address] [address] .GFRon 12-26-2024 Estimated Glomerular Filtration Rate 84 ml/min/1.73sqm Normal [facility] Comment on above: Result Comment: Stages of Chronic Kidney Disease (CKD) Stage Description eGFR(ml/min/1.73 sq.m.) CKD 1 Normal kidney function or >=90 normal kindney function with possible kidney damage (ex. Proteinuria) CKD 2 Kidney damage with mild loss 60-89 of kidney function CKD 3a Mild to moderate loss of kidney 45-59 function CKD 3b Moderate to severe loss of 30-44 of kindey function CKD 4 Severe loss of kidney function 15-29 CKD 5 Kidney failure <15 Note: (go live 2024) the eGFR calculation was updated to the 2020 CKD-EPI creatinine equation without a race factor to calculate the eGFR results. Performed By: #### U AMICAO PREGU, UA #### [address] [address] .MDWon 12-26-2024 Monocyte Distribution Width 19.24 Normal 0.00-20.00 [facility] Comment on above: Result Comment: For ED adult patients suspected of sepsis, MDW<=20.0 does not rule out sepsis or risk of sepsis Performed By: #### U AMICAO PREGU, UA #### [place] [address] .NEUABSon 12-26-2024 Neutrophil, Absolute 3.8 10 3/mcL Normal 2.3-8.1 [facility] Comment on above: Performed By: #### U AMICAO, PREGU, UA #### [place] [address] .Urinalysis Microscopic (AO) on 12-26-2024 UA Bacteria Trace Abnormal [facility] Comment on above: Performed By: #### U AMICAO, PREGU, UA #### [place] [address] UA RBC 0-5 Abnormal None Seen [facility] Comment on above: Performed By: #### U AMICAO, PREGU, UA #### [place] [address] UA Squam Epithelial 0-5 Abnormal None Seen [facility] Comment on above: Performed By: #### U AMICAO, PREGU, UA #### [place] [address] UA WBC 0-5 Abnormal None Seen [facility] Comment on above: Performed By: #### U AMICAO, PREGU, UA #### [place] [id number] BMPon 12-26-2024 BUN/Creatinine Ratio 9 ratio Normal 7-27 [facility] Comment on above: Performed By: #### U AMICAO, PREGU, UA #### [place] [address] Calcium [Mass/Vol] 8.9 mg/dL Normal 8.4-10.2 [facility] Comment on above: Performed By: #### U AMICAO, PREGU, UA #### [place] [address] Chloride [Moles/Vol] 100 mmol/L Normal 98-107 [facility] Comment on above: Performed By: #### Le GALICIA PREGU, UA #### [address] [address] CO2 [Moles/Vol] 30 mmol/L High 22-29 [facility] Comment on above: Performed By: #### Le AMICAKareen PREGU, UA #### [address] [address] Creatinine [Mass/Vol] 0.94 mg/dL Normal 0.55-1.02 [facility] Comment on above: Result Comment: Test ing performed on Xpreso Dimension EXL analyzer using a modified kinetic Leah technique. Performed By: #### Le GALICIA PREGU, UA #### [address] [address] Electrolyte Balance 6.0 mEq/L Normal 4.0-15.0 [facility] Comment on above: Performed By: #### Le GALICIA PREGU, UA #### [address] [address] Glucose [Mass/Vol] 75 mg/dL Normal 70-105 [facility] Comment on above: Performed By: #### Le AMIRUIO PREGU, UA #### [address] [address] Potassium [Moles/Vol] 3.7 mmol/L Normal 3.5-5.1 [facility] Comment on above: Performed By: #### U AMICAO PREGU, UA #### [address] [address] Sodium [Moles/Vol] 136 mmol/L Normal 136-145 [facility] Comment on above: Performed By: #### Le AMICAO, PREGU, UA #### [address] [address] Urea nitrogen [Mass/Vol] 8 mg/dL Normal 7-18 [facility] Comment on above: Performed By: #### U FRIDA PREGU, UA #### [address] [address] CBCon 12-26-2024 Erythrocyte distribution width (RBC) [Ratio] 12.6 % Normal 11.5-15.5 [facility] Comment on above: Performed By: #### Le GALICIA PREGU, UA #### [place] [address] Hematocrit (Bld) [Volume fraction] 37.1 % Normal 34.0-46.0 [facility] Comment on above: Performed By: #### Le GALICIA PREGU, UA #### [place] [address] Hgb 12.8 G/dL Normal 12.0-16.0 [facility] Comment on above: Performed By: #### Le GALICIA PREGU, UA #### [place] [address] MCH (RBC) [Entitic mass] 30.4 pg Normal 27.0-33.0 [facility] Comment on above: Performed By: #### Le GALICIA PREGU, UA #### [place] [address] MCHC 34.6 G/dL Normal 32.0-36.0 [facility] Comment on above: Performed By: #### Le GALICIA PREGU, UA #### [place] [address] MCV (RBC) [Entitic vol] 87.8 fL Normal 80.0-99.0 [facility] Comment on above: Performed By: #### U FRIDA PREGU, UA #### [place] [address] Platelet 318 10 3/mcL Normal 150-450 [facility] Comment on above: Performed By: #### Le GALICIA PREGU, UA #### [place] [address] Platelet mean volume (Bld) [Entitic vol] 8.3 fL Normal 6.6-10.5 [facility] Comment on above: Performed By: #### LASHONDA GOOD UA #### [facility] [address] [place], [place] [address] RBC 4.23 10 6/mcL Normal 4.10-5.30 [facility] Comment on above: Performed By: #### LASHONDA GOOD UA #### [facility] [address] [place], [place] [address] WBC 6.5 10 3/mcL Normal 4.5-10.8 [facility] Comment on above: Performed By: #### LASHONDA GOOD UA #### [facility] [address] [place], [place] [address] CT ABDOMEN/PELVIS W/O CONTRA STon 12-26-2024 CT ABDOMEN/PELVIS W/O CONTRAST ORIGINAL EXAMINATION: CT OF THE ABDOMEN AND PELVIS WITHOUT CONTRAST 12/26/2024 9:15 pm TECHNIQUE: CT of the abdomen and pelvis was performed without the administration of intravenous contrast. Multiplanar reformatted images are provided for review. Automated exposure control, iterative reconstruction, and/or weight based adjustment of the mA/kV was utilized to reduce the radiation dose to as low as reasonably achievable. COMPARISON: CT abdomen pelvis October 11, 2024 HISTORY: ORDERING SYSTEM PROVIDED HISTORY: Reason for Exam: pt states she has been having flank pain for two weeks, has a known kidney stone and is scheduled for surgery at [facility]. pt states the pain was getting worse BILATERAL flank pain FINDINGS: Lower Chest: No focal consolidation. Organs: Nonobstructing 0.5 cm right mid pole nephrolithiasis. Punctate right upper pole nonobstructing nephrolithiasis. No hydronephrosis or hydroureter. GI/Bowel: No bowel obstruction, pneumoperitoneum or ascites. Pelvis: Tubal ligation clips. Otherwise unremarkable. Peritoneum/Retroper itoneum: Nonaneurysmal abdominal aorta. No enlarged lymph nodes. Bones/Soft Tissues: No acute osseous abnormality. IMPRESSION: A few nonobstructing right nephrolithiasis. No hydronephrosis or hydroureter. Interpreted by: Tino Vallecillo Preliminary Report By: Tino Vallecillo Electronically signed By Tino Vallecillo Dictated Date: 12/26/2024 9:18:32 PM Prelim Date: 12/26/2024 9:26:35 PM Sign Date: 12/26/2024 9:26:35 PM Ordering Provider: DEYSI WALLER Normal [facility] PREGUon 12-26-2024 HCG ( test) Ql (U) Negative Normal [facility] Comment on above: Performed By: #### U AMICAO, PREGU, UA #### [place] [address] test (u) int Not detected Invalid Interpretation Code [facility] Comment on above: Performed By: #### U AMICAO, PREGU, UA #### [place] [address] UAon 12-26-2024 Color (U) Yellow Normal [facility] Comment on above: Performed By: #### U AMICAO, PREGU, UA #### [place] [address] Glucose (U) [Mass/Vol] Negative Normal Negative [facility] Comment on above: Performed By: #### U AMICAO, PREGU, UA #### [address] [address] Ketones Ql (U) Negative Normal Negative [facility] Comment on above: Performed By: #### U AMICAO, PREGU, UA #### [address] [address] UA Appear Slightly Cloudy Abnormal Clear [facility] Comment on above: Performed By: #### U AMICAO, PREGU, UA #### [place] [address] UA Blood Negative Normal Negative [facility] Comment on above: Performed By: #### U AMICAO, PREGU, UA #### [address] [address] UA Leuk Est Negative Normal Negative [facility] Comment on above: Performed By: #### U AMICAO, PREGU, UA #### [address] [address] UA Nitrite Negative Normal Negative [facility] Comment on above: Performed By: #### U AMICAO, PREGU, UA #### [address] [address] UA pH 7.0 Normal 5.0 - 8.0 [facility] Comment on above: Performed By: #### U AMICAO, PREGU, UA #### [address] [address] UA Protein Negative Normal Negative [facility] Comment on above: Performed By: #### U AMICAO, PREGU, UA #### [address] [address] UA Spec Grav 1.020 Normal 1.015-1.025 [facility] Comment on above: Performed By: #### U AMICAO, PREGU, UA #### [address] [address] UA Specimen Type Void Normal [facility] Comment on above: Performed By: #### U AMICAO, PREGU, UA #### [address] [address] UA Urobilinogen 1.0 E.U./dL Normal 0.2-1.0 [facility] Comment on above: Performed By: #### U AMICAO, PREGU, UA #### [address] [address] Urobilinogen (U) [Mass/Vol] Negative Normal Negative [facility] Comment on above: Performed By: #### U AMICAO, PREGU, UA #### [address] [address] Urine Drug Screen (VISTA)on 12-17-2024 AMPHETAMINES Negative Normal <1000 ng/mL [facility] Comment on above: Order Comment: CLEAN CATCH Performed By: #### L 400.0001, M100.678 #### [facility] [address] [place], [address] BARBITIURATES Negative Normal < 200 ng/mL [facility] Comment on above: Order Comment: CLEAN CATCH Performed By: #### L 400.0001, #### [facility] [address] [place], [address] BENZODIAZIPINE Negative Normal < 200 ng/mL [facility] Comment on above: Order Comment: CLEAN CATCH Performed By: #### L 400.0001, #### [facility] [address] [place], [address] BUP Ur Drug Scr Positive Normal < 200 ng/mL [facility] Comment on above: Order Comment: CLEAN CATCH Result Comment: If c onfirmation testing is needed, a separate order will be required to send out testing to the reference laboratory. Performed By: #### L 400.2054, #### [facility] [address] [place], [address] COCAINE Negative Normal < 300 ng/mL [facility] Comment on above: Order Comment: CLEAN CATCH Performed By: #### L 400.2054, #### [facility] [address] [place], [address] Fentanyl Negative Normal [facility] Comment on above: Order Comment: CLEAN CATCH Performed By: #### L 400.0001, #### [facility] [address] [place], [address] METHADONE Negative Normal < 300 ng/mL [facility] Comment on above: Order Comment: CLEAN CATCH Performed By: #### L 400.0001, #### [facility] [address] [place], [address] OPIATES Negative Normal < 300 ng/mL [facility] Comment on above: Order Comment: CLEAN CATCH Performed By: #### L 400.0001, 00.678 #### [facility] [address] [facility] [address] OXYCODONE Negative Normal < 100 ng/mL [facility] Comment on above: Order Comment: CLEAN CATCH Performed By: #### L 400.0001, M100.678 #### [facility] [address] [place], [address] PCP Negative Normal < 25 ng/mL [facility] Comment on above: Order Comment: CLEAN CATCH Performed By: #### L 400.0001, M100.678 #### [facility] [address] [place] [address] THC Negative Normal < 50 ng/mL [facility] Comment on above: Order Comment: CLEAN CATCH Performed By: #### L 400.0001, M100.678 #### [facility] [address] [place], [address] Amphetamine detection with 1 000 ng/mL as cutoffOrdered By: Lashawn Avila on 12-16-2024 Amphetamines Screen method >1000 ng/mL Ql (U) Negative < 200 ng/mL [facility] Amphetamines Screen method > 1000 ng/mL Ql (U)Ordered By: Lashawn Avila on 12-16-2024 Amphetamines Ql (U) Negative <1000 ng/mL [facility] Urine Barbiturates Screen Negative < 200 ng/mL [facility] Methadone, urineOrdered By: Lashawn Avila on 12-16-2024 Urine Methadone Screen Negative < 300 ng/mL [facility] No Panel InformationOrdered By: Lashawn Avila on 12-16-2024 Urine Buprenorphine Qualitative Positive < 200 ng/mL [facility] Comment on above: If confirmation test ing is needed, a separate order will be required to send out testing to the reference laboratory. Urine Oxycodone Screen Negative < 100 ng/mL [facility] Quantitative urine opiates m easurementOrdered By: Lashawn Avila on 12-16-2024 Opiates Ql (U) Negative < 300 ng/mL [facility] Screening urine fentanyl marisel surementOrdered By: Lashawn Avila on 12-16-2024 fentaNYL Screen Ql (U) Negative [facility] Urine benzodiazepine levelOr dered By: Lashawn Avila on 12-16-2024 Benzodiazepines Ql (U) Negative < 200 ng/mL [facility] Urine cocaine levelOrdered B y: Lashawn Avila on 12-16-2024 Cocaine Ql (U) Negative < 300 ng/mL [facility] Urine kbico-0-kfaanzzvzjnsis abinol (THC) measurementOrdered By: Lashawn Avila on 12-16-2024 Cannabinoids Screen Ql (U) Negative < 50 ng/mL [facility] Urine phencyclidine (PCP) de tectionOrdered By: Lashawn Avila on 12-16-2024 Phencyclidine Ql (U) Negative < 25 ng/mL [facility] fentaNYL Screen Ql (U)Ordere d By: Lashawn Avila on 12-16-2024 Urine Fentanyl Screen Negative [facility] Abdomen Single Viewon 2024 Abdomen Single View [facility] [address] [place] [address] Abdomen Single View MR#: [id number] Acct: [id number] Name: PENNIE KOENIG Rep #: [id number] : 1995 F 29 From: Hang Burgess PCP: Dr. Lashawn Avila, DO Status: REG CLI Study: Abdomen Single View Date of Exam: 11/12/24 Exam# [id number] Ordering Dr: Brittany Rodriguez MD PROCEDURE: ABDOMEN SINGLE VIEW REASON FOR EXAM: Stone surveillance. TECHNIQUE: Two-view supine abdomen. COMPARISON: Abdomen study of 09/24/2024 RAD/Abdomen Single View IMPRESSION: Bilateral pelvic surgical clips are seen, with 1 of the prior left pelvic surgical clips migrated into the left lower quadrant of the abdomen since the study of 09/24/2024, however. The bowel-gas pattern is unremarkable. Given overlying stool, evaluation for renal calculi is limited. No definite calculus is now seen. Reading Location: [address] CC: Dr. Brittany Rodriguez MD; Dr. Lashawn Avila DO Travel Ot: Signed Normal [facility] Abdomen Single Viewon 2024 Abdomen Single View [facility] [address] [place] [address] Abdomen Single View MR#: [id number] Acct: [id number] Name: PENNIE KOENIG Rep #: [id number] : 1995 F 29 From: Denis Garay MD PCP: Dr. Lashawn Avila DO Status: REG ER Study: Abdomen Single View Date of Exam: 10/17/24 Exam# [id number] Ordering Dr: Stevie Avilez MD -[id number] STUDY: X-RAY - ABDOMEN/PELVIS REASON FOR EXAM: Female, 29 years old. left flank pain, recent ureteral stent TECHNIQUE: Two AP supine views of the abdomen and pelvis. COMPARISON: 09/24/2024 FINDINGS: Normal visualized lung bases. There is an abundance of fecal material throughout the colon. There is no demonstrated free abdominal air. The visualized liver, spleen and kidneys are grossly normal in size and morphology. There is a 2 mm calcification overlying the right renal shadow, no calcifications are noted over the left renal shadow or along the expected course of either ureter. However, one could be overlooked due to the bowel gas and stool. Evidence of previous tubal ligation Normal visualized osseous structures. RAD/Abdomen Single View IMPRESSION: No suspicious findings, retained stool Electronically Signed: Foster Garay MD at 9:43 EST , CC: Dr. Stevie Avilez MD; Dr. Lashawn Avila DO Travel Ot: Signed Normal [facility] Abdomen/Pelvis without Conto n 10-17-2024 Abdomen/Pelvis without Cont [facility] [address] [place], [place] [id number] Abdomen/Pelvis without Cont MR#: [id number] Acct: [id number] Name: PENNIE KOENIG Rep #: [id number] : 1995 F 29 From: Priti Ricks MD PCP: Dr. Lashawn Avila DO Status: REG ER Study: Abdomen/Pelvis without Cont Date of Exam: 01/06 Exam# [id number] Ordering Dr: Stevie Avilez MD -[id number] INDICATION: left flank pain EXAMINATION: CT ABDOMEN AND PELVIS WITHOUT CONTRAST - CT Abdomen And Pelvis W/O Contrast Injection TECHNIQUE: Helically acquired images were obtained of the abdomen and pelvis without oral or IV contrast. The protocol utilizes one or more of the following dose reduction techniques: automated exposure control, adjustment of mA and/or kV according to patient size,and/or use of iterative reconstruction technique. IV Contrast dosage and agent: None. Oral contrast: None. RADIATION DOSAGE (If Supplied By Facility): CTDIvol = ( 21.80 ) mGy, DLP = ( 1219.86 ) mGycm COMPARISON: No relevant prior comparison study available FINDINGS: LOWER CHEST: Lung bases are clear. No cardiomegaly or pericardial effusion. There are is partial visualization of bilateral breast implants. The lack of intravenous contrast limits evaluation of solid visceral organs. LIVER: Homogeneous. No focal mass. GALLBLADDER AND BILIARY TREE: No calcified gallstones. No gallbladder distension or wall edema. No intra- or extrahepatic biliary ductal dilation. PANCREAS: No focal cystic or solid mass. SPLEEN: Normal size without focal cystic or solid mass. ADRENAL GLANDS: No nodules. KIDNEYS AND URETERS: Normal renal size and position. There are bilateral nonobstructing renal calculi measuring up to 4 mm and 2.4 mm on the left. There is perinephric stranding along the mid/lower pole the left kidney. There is a 2.9 mm calculus within the left ureterovesicular junction. PERITONEUM: No ascites or free air. No other fluid collection. BOWEL: There is a moderate amount of stool throughout the colon and rectum. No evidence of acute appendicitis. No stomach or bowel distension. No focal inflammatory change. LYMPH NODES: No enlarged mesenteric or retroperitoneal lymph nodes. VESSELS: Aorta is non-dilated. URINARY BLADDER: The urinary bladder is incompletely distended. There is a focus of air within the urinary bladder suggestive of prior instrumentation. REPRODUCTIVE ORGANS: No pelvic masses. There are tubal ligation clips in place. ABDOMINAL WALL: There is a small fat-containing umbilical hernia. BONES: No lytic or blastic abnormality. CT/Abdomen/Pelvis without Cont IMPRESSION: Left-sided perinephric stranding associated with a 2.9 mm calculus within the ureterovesicular junction; cannot exclude associated pyelonephritis. Bilateral nonobstructing renal calculi measuring up to 4 mm on the right. Moderate amount of stool throughout the colon and rectum. Electronically Signed: Priti Ricks MD at 12:32 EST , CC: Dr. Stevie Avilez MD; Dr. Lasahwn Avila DO Travel Ot: Signed Normal [facility] Absolute neutrophil countOrd ered By: Stevie Avilez on 10-17-2024 Neutrophils (Bld) [#/Vol] 14.2 10*3/uL High 2.0-7.7 [facility] Basic Metabolic Profile (BMP )on 10-17-2024 BUN/CRE 12.1 RATIO Normal 10-20 [facility] Comment on above: Performed By: #### L 400.0001, M100.678 #### [facility] [address] [place], [address] CA,Total 8.9 mg/dL Normal 8.5-10.1 [facility] Comment on above: Performed By: #### L 400.0001, M1.678 #### [facility] [address] [place] [place], [address] Chloride [Moles/Vol] 109 mmol/L High 98-107 [facility] Comment on above: Performed By: #### L 400.0001, #### [facility] [address] [place], [address] CO2 [Moles/Vol] 21.0 mmol/L Normal 21.0-32.0 [facility] Comment on above: Performed By: #### L 400.0001, #### [facility] [address] [place], [address] Creatinine [Mass/Vol] 1.07 mg/dL High 0.55-1.02 [facility] Comment on above: Result Comment: The validity of the calculated GFR GFRAA in patients over 70 years has not been determined. Clinical correlation is essential. Performed By: #### L 400.0001, #### [facility] [address] [place], [address] ECRCL 97.93 ml/min Normal [facility] Comment on above: Performed By: #### L 400.0001, #### [facility] [address] [place], [address] EST GFR - AA 78 mL/min Normal >60 [facility] Comment on above: Result Comment: Afri can Nauruan GFR Calc Performed By: #### L 400.0001, #### [facility] [address] [place], [address] GAP 8 Normal 5-15 [facility] Comment on above: Performed By: #### L 400.0001, #### [facility] [address] [place], [address] GFR/1.73 sq M.predicted among non-blacks MDRD (S/P/Bld) [Vol rate/Area] 64 mL/min/{1.73_m2} Normal >60 [facility] Comment on above: Result Comment: Non- GFR Calc Performed By: #### L 400.0001, #### [facility] [address] [place], [address] Glucose [Mass/Vol] 130 mg/dL High 74-106 [facility] Comment on above: Result Comment: Fast ing Glucose result greater than or equal to 126 mg/dL suggests DIABETES MELLITUS per A.D.A. criteria. Performed By: #### L 400.0001, #### [facility] [address] [place], [address] Potassium [Moles/Vol] 4.3 mmol/L Normal 3.5-5.1 [facility] Comment on above: Performed By: #### L 400.0001, #### [facility] [address] [place], [address] Sodium [Moles/Vol] 137 mmol/L Normal 136-145 [facility] Comment on above: Performed By: #### L 400.0001, #### [facility] [address] [place], [address] Urea nitrogen [Mass/Vol] 13 mg/dL Normal 7-18 [facility] Comment on above: Performed By: #### L 400.0001, #### [facility] [address] [place], [address] Basophil percentageOrdered B y: Stevie Avilez on 10-17-2024 Basophils/100 WBC (Bld) 0.1 % 0-1 [facility] Bilirubin Test strip Ql (U)O rdered By: Stevie Avilez on 10-17-2024 Bilirubin Ql (U) Negative Negative [facility] Blood urea nitrogen (BUN)/cr eatinine ratioOrdered By: Stevie Avilez on 10-17-2024 Urea nitrogen/Creatinine [Mass ratio] 12.1 mg/mg 10-20 [facility] CBC W/Diff, Automatedon Absolute Lymph 1.72 X10 3/uL Normal 0.83-4.51 [facility] Comment on above: Performed By: #### L 400.0001, #### [facility] [address] [place], [address] Absolute Neut 14.2 X10 3/uL High 2.0-7.7 [facility] Comment on above: Performed By: #### L 400.0001, #### [facility] [address] [place], [address] Basophils/100 WBC (Bld) 0.1 % Normal 0-1 [facility] Comment on above: Performed By: #### L 400.0001, #### [facility] [address] [place], [address] Eosinophils/100 WBC (Bld) 0.0 % Normal 0-5 [facility] Comment on above: Performed By: #### L 400.0001, #### [facility] [address] [place], [address] Erythrocyte distribution width (RBC) [Ratio] 11.9 % Normal 11.6-14.6 [facility] Comment on above: Performed By: #### L 400.0001, #### [facility] [address] [place], [address] Hematocrit (Bld) [Volume fraction] 37.8 % Normal 37-47 [facility] Comment on above: Performed By: #### L 400.0001, #### [facility] [address] [place], [address] Hemoglobin (Bld) [Mass/Vol] 12.9 g/dL Normal 12.0-15.0 [facility] Comment on above: Performed By: #### L 400.0001, #### [facility] [address] [place], [address] IG% 0.400 Normal 0.0-0.9 [facility] Comment on above: Result Comment: IG% - Immature Granulocytes (promyelocytes, myelocytes and metamyelocytes) > 1% indicates that a LEFT SHIFT is Present. Performed By: #### L 400.0001, #### [facility] [address] [place], [address] Lymphocytes/100 WBC (Bld) 10.1 % Low 19-41 [facility] Comment on above: Performed By: #### L 400.0001, #### [facility] [address] [facility] [place], [address] MCH (RBC) [Entitic mass] 29.5 pg Normal 27.0-32.0 [facility] Comment on above: Performed By: #### L 400.0001, #### [facility] [address] [place], [address] MCHC (RBC) [Mass/Vol] 34.1 g/dL Normal 32-36 [facility] Comment on above: Performed By: #### L 400.0001, #### [facility] [address] [place], [address] MCV (RBC) [Entitic vol] 86.5 fL Normal 81-99 [facility] Comment on above: Performed By: #### L 400.0001, #### [facility] [address] [place], [address] Monocytes/100 WBC (Bld) 5.9 % Normal 0-10 [facility] Comment on above: Performed By: #### L 400.2054, #### [facility] [address] [place], [address] Neutrophils/100 WBC (Bld) 83.5 % High 47-70 [facility] Comment on above: Performed By: #### L 400.0001, #### [facility] [address] [place], [address] Nucleated RBC (Bld) [#/Vol] 0 10*3/uL Normal 0-5 [facility] Comment on above: Performed By: #### L 400.0001, #### [facility] [address] [place], [address] Platelet mean volume (Bld) [Entitic vol] 10.0 fL Normal 6.2-12.0 [facility] Comment on above: Performed By: #### L 400.0001, #### [facility] [address] [place], [address] Platelets (Bld) [#/Vol] 333 10*3/uL Normal 150-450 [facility] Comment on above: Performed By: #### L 400.0001, #### [facility] [address] [place], [address] RBC (Bld) [#/Vol] 4.37 10*6/uL Normal 4.2-5.4 [facility] Comment on above: Performed By: #### L 400.0001, #### [facility] [address] [place], [address] RDW SD 37.7 fl Normal 35.1-43.9 [facility] Comment on above: Performed By: #### L 400.0001, #### [facility] [address] [place], [address] WBC (Bld) [#/Vol] 17.0 10*3/uL High 4.4-11.0 [facility] Comment on above: Performed By: #### L 400.0001, M100.678 #### [facility] [address] [place], [address] Carbon dioxide measurementOr dered By: Stevie Avilez on 10-17-2024 CO2 [Moles/Vol] 21.0 mmol/L 21.0-32.0 [facility] Chloride measurementOrdered By: Stevie Avilez on 10-17-2024 Chloride [Moles/Vol] 109 mmol/L High 98-107 [facility] Emergency Department Summary on 10-17-2024 Emergency Department Summary [facility] Medical Records Department [address] [place] [address] Emergency Department Summary 10/17/24 MR#: [id number] Acct: [id number] Name: PENNIE KOENIG Rep #: [id number] : 1995 29 From: Stevie Avilez MD PCP: Dr. Lashawn Avila, DO Status:REG ER Location: ED HPI HPI - GI History of Present Illness Chief Complaint: Flank Pain Informant: patient Narrative Narrative: 29-year-old female with recent kidney stone and pain had a ureteral stent placed yesterday here by Dr. Rodriguez, she states the same pain is now even worse than when she just had this done without the stent. She denies any fevers or chills. The pain is in the same location, left flank, into her back and groin. Nausea and vomiting. Pain has been pretty intense for the past 6 or so hours. She is urinating some blood clots and gravel at times. She has been able to continue to urinate when she feels the need to. [facility] Medical History (Updated 10/17/24 @ 13:[address] Stevie Avilez MD) Depression Kidney stones Back pain Gastric reflux Smoker delivery delivered Sterilization H/O shoulder dystocia in prior , currently 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 , currently Genital herpes OCD (obsessive compulsive disorder) Anxiety Home Medications ???Medication ???Instructions ???Recorded ???Last Taken ???Type citalopram 20 mg tablet 20 mg PO DAILY depression 10/31/19 03/01/21 10:00 History 20 mg acyclovir 400 mg tablet See Rx Instructions .Route 05/26/24 Unknown Rx .COMPLEX herpes #60 tabs bupropion HCl 150 mg tablet,12 hr 150 mg PO QDAY depression 07/16/24 Unknown History sustained-release (Wellbutrin SR) ciprofloxacin HCl 250 mg tablet 250 mg PO BID atb 10/14/24 Unknown History (Cipro) lorazepam 1 mg tablet 1 mg PO BID PRN PRN anxiety 10/14/24 Unknown History spironolactone 100 mg tablet 100 mg PO DAILY acne 10/14/24 Unknown History ondansetron 8 mg disintegrating 8 mg PO Q8H PRN nausea and 10/16/24 Unknown Rx tablet vomiting #10 tabs oxycodone-acetamino phen 5 mg-325 1 tab PO Q8H PRN pain 3 days #10 10/16/24 Unknown Rx mg tablet tabs Allergy/AdvReac Type Severity Reaction Status Date / Time amoxicillin (Amoxicillin) Allergy Rash Verified 10/17/24 08:42 Penicillins Allergy Rash Verified 10/17/24 08:42 Surgical History H/O foot surgery H/O dilation and curettage Social History adopted: No household members: family housing: house number of children: 3 current occupational status: employed current occupation: [employer] pets and animals: Yes Smoking Status: Current every day smoker tobacco type: cigarettes second hand exposure: No alcohol intake: current details: social- not while substance use type: does not use seatbelt use: always do you feel safe at home: Yes additional social history: Spouse: Ashon- student ([employer]- 6, [employer]-11) ROS ROS ED Constitutional Constitutional ED: Denies chills or fever(s) Eyes Eyes: Denies change in vision or diplopia ENT ENT ED: Denies rhinorrhea or sore throat Cardiovascular Cardiovascular: Denies chest pain or palpitations Respiratory/Chest Respiratory/Chest: Denies cough or dyspnea Gastrointestinal Gastrointestinal: Reports abdominal pain, nausea and vomiting; Denies diarrhea Genitourinary Genitourinary ED: Reports flank pain and hematuria; Denies dysuria Musculoskeletal Musculoskeletal: Denies back pain or neck pain Integumentary Denies abscess or rash Neurologic Neurologic: Denies headache(s), paresthesias or weakness Psychiatric Psychiatric: Denies anxiety or suicidal thoughts EXAM Physical Exam Const Vital Signs: 10/17/24 08:40 10/17/24 08:42 10/17/24 09:39 Temperature 98 F 98.7 F Temperature Source Temporal Oral Pulse Rate 70 63 59 L Respiratory Rate 20 H 20 H 17 Blood Pressure 110/77 112/78 115/45 L Blood Pressure Mean 88 89 68 Pulse Ox 99 98 100 Oxygen Delivery Method Room Air Room Air Room Air 10/17/24 09:42 10/17/24 10:00 10/17/24 11:00 Temperature 98.0 F 98.7 F 98.3 F Temperature Source Oral Oral Oral Pulse Rate 59 L 63 60 Respiratory Rate 18 19 H 16 Blood Pressure 115/45 L 101/48 L 94/48 L Blood Pressure Mean 68 65 63 Pulse Ox 100 92 98 Oxygen Delivery Method Room Air Room Air Room Air 10/17/24 12:00 10/17/24 13:00 Temperature 98.4 F 98.4 F Temperature Source Oral Oral Pulse Rate 59 L 54 L Respiratory Rate 16 17 Blood Pressure 97/46 L 95/52 L Blood Pressure Mean 63 66 Pulse Ox 97 98 Oxygen Delivery Method Room Air Room Air Positive well nourished and well develope (more content not included)... Normal [facility] Eosinophil percentageOrdered By: Stevie Avilez on 10-17-2024 Eosinophils/100 WBC (Bld) 0.0 % 0-5 [facility] Epithelial cells.squamous LM Ql (Urine sed)Ordered By: Stevie Avilez on 10-17-2024 Epithelial cells.squamous LM.HPF (Urine sed) [#/Area] 10 /[HPF] 5-10 [facility] Erythrocyte distribution wid th ratioOrdered By: Stevie Avilez on 10-17-2024 Erythrocyte distribution width (RBC) [Ratio] 11.9 % 11.6-14.6 [facility] Erythrocyte distribution wid th standard deviationOrdered By: Stevie Avilez on 10-17-2024 Erythrocyte distribution width (RBC) [Entitic vol] 37.7 fL 35.1-43.9 [facility] Estimated glomerular filtrat ion rate (GFR) AmericanOrdered By: Stevie Avilez on 10-17-2024 Estimated GFR (MDRD) Amer 78 mL/min >60 [facility] Comment on above: GFR Calc Estimation of creatinine fransico aranceOrdered By: Stevie Avilez on 10-17-2024 Estimated Creatinine Clearance Calc 97.93 ml/min [facility] Glomerular filtration rate ( GFR) estimationOrdered By: Stevie Avilez on 10-17-2024 Estimated GFR (MDRD) Non-Af Amer 64 mL/min >60 [facility] Comment on above: Non- GFR Calc Glucose Ql (U)Ordered By: Carissa Avilez on 10-17-2024 Urine Glucose (UA) Normal mg/dl Normal [facility] Glucose measurementOrdered B y: Stevie Avilez on 10-17-2024 Glucose [Mass/Vol] 130 mg/dL High 74-106 [facility] Comment on above: Fasting Glucose resu lt greater than or equal to 126 mg/dL suggests DIABETES MELLITUS per A.D.A. criteria. Hematocrit Auto (Bld) [Volum e fraction]Ordered By: Stevie Avilez on 10-17-2024 Hematocrit (Bld) [Volume fraction] 37.8 % 37-47 [facility] Hemoglobin measurementOrdere d By: Stevie Avilez on 10-17-2024 Hemoglobin (Bld) [Mass/Vol] 12.9 g/dL 12.0-15.0 [facility] Immature granulocytes/100 WB C Auto (Bld)Ordered By: Stevie Avilez on 10-17-2024 Immature granulocytes/100 WBC (Bld) 0.400 % 0.0-0.9 [facility] Comment on above: IG% - Immature Granu locytes (promyelocytes, myelocytes and metamyelocytes) > 1% indicates that a LEFT SHIFT is Present. Ketones Test strip Ql (U)Ord ered By: Stevie Avilez on 10-17-2024 Ketones Ql (U) Negative Negative [facility] Lymphocytes Auto (Unsp spec) [#/Vol]Ordered By: Stevie Avilez on 10-17-2024 Lymphocytes (Bld) [#/Vol] 1.72 10*3/uL 0.83-4.51 [facility] Lymphocytes/100 WBC Auto (Un sp spec)Ordered By: Stevie Avilez on 10-17-2024 Lymphocytes/100 WBC (Bld) 10.1 % Low 19-41 [facility] MCV (mean corpuscular volume ) determinationOrdered By: Stevie Avilez on 10-17-2024 MCV (RBC) [Entitic vol] 86.5 fL 81-99 [facility] Mean corpuscular hemoglobin (MCH) determinationOrdered By: Stevie Avilez on 10-17-2024 MCH (RBC) [Entitic mass] 29.5 pg 27.0-32.0 [facility] Mean corpuscular hemoglobin concentration (MCHC) determinationOrdered By: Stevie Avilez on 10-17-2024 MCHC (RBC) [Mass/Vol] 34.1 g/dL 32-36 [facility] Mean platelet volume determi nationOrdered By: Stevie Avilez on 10-17-2024 Platelet mean volume (Bld) [Entitic vol] 10.0 fL 6.2-12.0 [facility] Microscopic analysis of urin e for red blood cells (RBC)Ordered By: Stevie Avilez on 10-17-2024 Urine RBC 10-25 SEEN /hpf 0-5 [facility] Monocyte percentageOrdered B y: Stevie Avilez on 10-17-2024 Monocytes/100 WBC (Bld) 5.9 % 0-10 [facility] Mucus LM Ql (Urine sed)Order ed By: Stevie Avilez on 10-17-2024 Mucus Ql (Urine sed) 0 SEEN /hpf [facility] Neutrophil percentageOrdered By: Stevie Avilez on 10-17-2024 Neutrophils/100 WBC (Bld) 83.5 % High 47-70 [facility] Nitrite Test strip Ql (U)Ord ered By: Stevie Avilez on 10-17-2024 Nitrite Ql (U) Negative Negative [facility] Nucleated red blood cell per centageOrdered By: Stevie Avilez on 10-17-2024 Nucleated RBC/100 WBC (Bld) [Ratio] 0 % 0-5 [facility] Platelet countOrdered By: Carissa Avilez on 10-17-2024 Platelets (Bld) [#/Vol] 333 10*3/uL 150-450 [facility] Potassium measurementOrdered By: Stevie Avilez on 10-17-2024 Potassium [Moles/Vol] 4.3 mmol/L 3.5-5.1 [facility] Protein Test strip Ql (U)Ord ered By: Stevie Avilez on 10-17-2024 Protein Ql (U) 30 mg/dl High Negative [facility] RBC Auto (Bld) [#/Vol]Ordere d By: Stevie Avilez on 10-17-2024 RBC (Bld) [#/Vol] 4.37 10*6/uL 4.2-5.4 [facility] Serum anion gap measurementO rdered By: Stevie Avilez on 10-17-2024 Anion gap [Moles/Vol] 8 mmol/L 5-15 [facility] Serum or plasma calcium eliezer urement (mass/volume)Ordered By: Setvie Avilez on 10-17-2024 Calcium [Mass/Vol] 8.9 mg/dL 8.5-10.1 [facility] Serum or plasma creatinine m easurement (mass/volume)Ordered By: Stevie Avilez on 10-17-2024 Creatinine [Mass/Vol] 1.07 mg/dL High 0.55-1.02 [facility] Comment on above: The validity of the calculated GFR & GFRAA in patients over 70 years has not been determined. Clinical correlation is essential. Serum or plasma urea nitroge n measurement (mass/volume)Ordered By: Stevie Avilez on 10-17-2024 Urea nitrogen [Mass/Vol] 13 mg/dL 7-18 [facility] Sodium levelOrdered By: Denis Avilez on 10-17-2024 Sodium [Moles/Vol] 137 mmol/L 136-145 [facility] Urinalysis, Completeon 10-17 BACTERIA 1+ /hpf Normal None Seen [facility] Comment on above: Order Comment: CLEAN CATCH Performed By: #### L 400.0001, M100.678 #### [facility] [address] [place], [address] RBC 10-25 SEEN Normal 0-5 [facility] Comment on above: Order Comment: CLEAN CATCH Performed By: #### L 400.0001, M100.678 #### [facility] [address] [place], [address] WBC 0-5 SEEN Normal 0-5 [facility] Comment on above: Order Comment: CLEAN CATCH Performed By: #### L 400.0001, M100.678 #### [facility] [address] [place], [address] EPI,SQUAMOUS 10-25 SEEN Normal 5-10 [facility] Comment on above: Order Comment: CLEAN CATCH Performed By: #### L 400.0001, M100.678 #### [facility] [address] [place], [address] Mucus Ql (Urine sed) 0 SEEN Normal [facility] Comment on above: Order Comment: CLEAN CATCH Performed By: #### L 400.0001, M100.678 #### [facility] [address] [place], [address] Urine blood detectionOrdered By: Stevie Avilez on 10-17-2024 Urine Occult Blood 250 /ul High Negative [facility] Urine clarityOrdered By: Ni Avilez on 10-17-2024 Clarity (U) Sl. Cloudy Clear [facility] Urine color determinationOrd ered By: Stevie Avilez on 10-17-2024 Color (U) Yellow Yellow [facility] Urine leukocyte esterase det ection by dipstickOrdered By: Stevie Avilez on 10-17-2024 Leukocyte esterase Test strip Ql (U) 25 /ul High Negative [facility] Urine pHOrdered By: Stevie Avilez on 10-17-2024 pH (U) 8.0 [pH] 5.0 - 8.0 [facility] Urine sediment bacteria coun t by microscopy (number/high power field)Ordered By: Stevie Avilez on 10-17-2024 Bacteria LM.HPF (Urine sed) [#/Area] 1 /[HPF] None Seen [facility] Urine specific gravity measu rementOrdered By: Stevie Avilez on 10-17-2024 Specific gravity (U) [Rel density] 1.010 1.002-1.030 [facility] Urobilinogen Ql (U)Ordered B y: Stevie Avilez on 10-17-2024 Urine Urobilinogen Normal mg/dl Normal [facility] White blood cell (WBC) count Ordered By: Stevie Avilez on 10-17-2024 WBC (Bld) [#/Vol] 17.0 10*3/uL High 4.4-11.0 [facility] White blood cell countOrdere d By: Stevie Avilez on 10-17-2024 Urine WBC 0-5 SEEN /hpf 0-5 [facility] Discharge Instructionon Discharge Instruction [facility] Medical Records Department [address] [place] [address] Instructions for Home/Discharge Instructions 10/16/24 1019 MR#: [id number] Acct: [id number] Name: PENNIE KOENIG Rep #: [id number] : 1995 29 From: Brittany Rodriguez MD PCP: Dr. Lashawn Avila, DO Status:ADM CHRISTIAN Discharge Instructions Diet Discharge Diet: No restrictions Activity Discharge Activity: Return to Normal Activity Dressing / Incision Call your doctor if you observe: Fever of 101 or Higher, Inability to urinate and Inability to have a bowel movement Follow Up Care Please Follow Up With: Brittany Rodriguez MD When: In 2-3 weeks with KUB. Test Results: Test results from this visit will be discussed in further detail at your follow-up appointment, if applicable. Discharge Plan Admission Admit Date/Time: 10/15/24 21:11 Attending Provider: Brittany Rodriguez Primary Care Provider: Lashawn Avila Discharge Orders/Prescription s Prescriptions: New ondansetron 8 mg tablet,disintegrati ng 8 mg PO Q8H PRN (Reason: nausea and vomiting) Qty: 10 0RF oxycodone-acetamino phen 5-325 mg tablet 1 tab PO Q8H PRN (Reason: pain) 3 Days Qty: 10 0RF Continued bupropion HCl [Wellbutrin SR] 150 mg tablet sustained-release 12 hr 150 mg PO QDAY citalopram 20 MG tablet 20 mg PO DAILY spironolactone 100 mg tablet 100 mg PO DAILY lorazepam 1 mg tablet 1 mg PO BID PRN PRN (Reason: anxiety) ciprofloxacin HCl [Cipro] 250 mg tablet 250 mg PO BID acyclovir 400 mg tablet See Rx Instructions .ROUTE .COMPLEX Qty: 60 3RF Dose Instruction: take 1 tablet by mouth twice a day Rx Instructions: take 1 tablet by mouth twice a day Referrals / Follow Up: Lashawn Avila DO [Primary Care Provider] - Disposition Disposition (needs filled in before D/C Order can be placed): Home, Self Care 10/16/24 1026 Brittany Rodriguez MD CC: Dr. Lashawn Avila DO Signed [facility] MR/POSTOP.[facility] 10-16-2024 MR/POSTOP.[facility] Medical Records Department [address] [place] [address] Anesthesia Postop Eval I 10/16/24 1216 MR#: [id number] Acct: [id number] Name: PENNIE KOENIG Rep #: [id number] : 1995 29 From: Srini Szymanski PCP: Dr. Lashawn Avila DO Status:ADM CHRISTIAN Y Race: C [id number] Anesthesia: Postop Eval I Current Vital Signs Temperature: 97 F Pulse Rate: 65 Blood Pressure: 126/76 Respiratory Rate: 16 Pulse Ox: 100 Oxygen Delivery Method: Room Air Assessment Airway patent: Yes Spontaneous unlabored respirations: Yes Mental status: Awake nausea: No Vomiting: No Anesthesia Complication: No Fluid Hydration Crystalloid volume administer (ml): 700 Total IV fluid infused: 700 Progress Note Anesthesia document: Postop Eval 1 completed: Yes 10/16/24 1217 Date Srini Zayas Signature: Date NIKITA: Signed Normal [facility] MR/[id number] 10-16-2024 MR/POSTOPAN2 [facility] Medical Records Department [address] [place] [address] Anesthesia Postop Eval II 10/16/24 1501 MR#: [id number] Acct: [id number] Name: PENNIE KOENIG Rep #: [id number] : 1995 29 From: Lito Moralez MD PCP: Dr. Lashawn Avila, DO Status:ADM CHRISTIAN Y Race: C Location: [facility]3 [id number] Anesthesia Postop Eval I Sum Postop Eval Completion status Anesthesia document: Postop Eval 1 completed: Yes Anesthesia Postop Eval I Summary Anesthesia Postop Eval I Summary: Anesthesia Postop Eval I: Assessment Summary Airway patent Yes 10/16/24 12:16 [facility] Spontaneous unlabored Yes 10/16/24 12:16 [facility] respirations Mental status Awake,Calm 10/16/24 12:16 [facility] nausea No 10/16/24 12:16 [facility] Vomiting No 10/16/24 12:16 [facility] Anesthesia Postop Eval I: Fluid Summary Crystalloid volume administer 700 10/16/24 12:16 [facility].MDOT (ml) Colloids volume administered ( ml) Blood Product volume administered (ml) Total IV fluid infused 700 10/16/24 12:16 [facility]OT Anesthesia Postop Eval I: Summary Notes Anesthesia Complication No 10/16/24 12:16 [facility].MDOT Anesthesia Complication Comment: Post-operative progress note Anesthesia: Postop Eval II Evaluation Mental status: Awake and Calm Pain Level: 3 nausea: No Vomiting: No Complications Anesthesia Complication: No 10/16/24 1502 Date Lito Moralez MD Cosigner Signature: Date CC: Signed Normal [facility] MR/POSTOPAN2 [facility] Medical Records Department [address] [place] [address] Anesthesia Postop Eval II 10/16/24 1216 MR#: [id number] Acct: [id number] Name: PENNIE KOENIG Rep #: [id number] : 1995 29 From: Srini Szymanski PCP: Dr. Lashawn Avila, DO Status:ADM CHRISTIAN Y Race: C Location: [facility] FT454-5 Anesthesia Postop Eval I Sum Postop Eval Completion status Anesthesia document: Postop Eval 1 completed: Yes Anesthesia Postop Eval I Summary Anesthesia Postop Eval I Summary: Anesthesia Postop Eval I: Assessment Summary Airway patent Yes 10/16/24 12:16 [facility] Spontaneous unlabored Yes 10/16/24 12:16 [facility] respirations Mental status Awake 10/16/24 12:16 [facility] nausea No 10/16/24 12:16 [facility] Vomiting No 10/16/24 12:16 [facility].MDOT Anesthesia Postop Eval I: Fluid Summary Crystalloid volume administer 700 10/16/24 12:16 [facility].MDOT (ml) Colloids volume administered ( ml) Blood Product volume administered (ml) Total IV fluid infused 700 10/16/24 12:16 [facility].MDOT Anesthesia Postop Eval I: Summary Notes Anesthesia Complication No 10/16/24 12:16 [facility].MDOT Anesthesia Complication Comment: Post-operative progress note Anesthesia: Postop Eval II Evaluation Mental status: Awake and Calm Pain Level: 3 nausea: No Vomiting: No Complications Anesthesia Complication: No 10/16/24 1217 Date Srini Zayas Signature: Date CC: Signed Normal [facility] Operative Reporton 5 Operative Report [facility] Medical Records Department [address] [place] [address] Operative Report 10/16/24 1138 MR#: [id number] Acct: [id number] Name: PENNIE KOENIG Rep #: [id number] : 1995 29 From: Brittany Rodriguez MD PCP: Dr. Lashawn Avila, DO Status:ADM CHRISTIAN Location: [place] [address] Operative Report (Standard) Operative Information Date of Procedure: 10/16/24 Pre-Operative Diagnosis: Left renal stone, urinary tract infections Post-Operative Diagnosis: Same Surgery/Procedure Performed: Cystoscopy, left renal extracorporeal shockwave lithotripsy business travel consultant: No Type of Anesthesia: General RN Documented Start/Stop Times: Operation Date: 10/16/24 10:10 Case Time Into Pre-Op 10/16/24 09:15 Out of Pre-Op 10/16/24 11:09 Anesthesia Start 10/16/24 11:14 Into Room 10/16/24 11:14 Procedure Start 10/16/24 11:26 Procedure Start Time: 11:26 Procedure Stop Time: 12:05 Select all DRAINS/GRAFTS/IMPLA NTS that apply: None Estimated Blood Loss: <5cc Specimen collected: No Description of surgery: The patient is a 29-year-old female with a left renal calculus who presents for shockwave lithotripsy and evaluation with cystoscopy for urinary tract infections. Informed consent was obtained. She was taken to the operating room and placed on the lithotripsy table. Anesthesia monitored the head, neck, airway, IV access and vital signs throughout the case. Once anesthesia was appropriately administered, she was positioned into dorsolithotomy and was prepped and draped in usual sterile fashion. The cystoscope was inserted through the urethra under direct visualization into the urinary bladder. The bladder mucosa in its entirety was evaluated with direct visualization revealing no evidence of mass, erythema, ulceration or foreign body. The cystoscope was then removed. The patient was repositioned on the table. Her 8 mm stone was clearly visible. It was broken into fragments using 3000 shockwaves. At the end of the case the stone appeared to be well fragmented. She was awakened and taken the recovery room in good condition. There were no complications during the procedure. Surgical Findings: Single 8 mm left renal stone easily identified. Normal cystoscopy. Complications Complications: No Admit VTE Documentation VTE Present on Admission: Yes VTE Mechan Device Prophylaxis: SCD's VTE Pharm Prophylaxis ordered?: No Reason prophylaxis not ordered: Treatment Not Indicated 10/16/24 1206 Cosigner Signature (if applicable): CC: Dr. Brittany Rodriguez MD; Dr. Lashawn Avila DO Signed Normal [facility] Absolute neutrophil countOrd ered By: Deacon Le on 10-15-2024 Neutrophils (Bld) [#/Vol] 3.7 10*3/uL 2.0-7.7 [facility] Bacteria LM.HPF (Urine sed) [#/Area]Ordered By: ED PROVIDER on 10-15-2024 Urine Bacteria RARE /hpf None Seen [facility] Basic Metabolic Profile (BMP )on 10-15-2024 BUN/CRE 12.3 RATIO Normal 10-20 [facility] Comment on above: Performed By: #### L 400.0001, M1.8 #### [facility] [address] [place], [address] CA,Total 9.0 mg/dL Normal 8.5-10.1 [facility] Comment on above: Performed By: #### L 400.0001, M1.678 #### [facility] [address] [place], [address] Chloride [Moles/Vol] 103 mmol/L Normal 98-107 [facility] Comment on above: Performed By: #### L 400.0001, M1.678 #### [facility] [address] [place], [address] CO2 [Moles/Vol] 29.0 mmol/L Normal 21.0-32.0 [facility] Comment on above: Performed By: #### L 400.0001, M1.678 #### [facility] [address] [place], [address] Creatinine [Mass/Vol] 0.90 mg/dL Normal 0.55-1.02 [facility] Comment on above: Result Comment: The validity of the calculated GFR GFRAA in patients over 70 years has not been determined. Clinical correlation is essential. Performed By: #### L 400.0001, #### [facility] [address] [place], [address] ECRCL 113.94 ml/min Normal [facility] Comment on above: Performed By: #### L 400.2054, #### [facility] [address] [place], [address] EST GFR - AA 95 mL/min Normal >60 [facility] Comment on above: Result Comment: Afri can Nauruan GFR Calc Performed By: #### L 400.2054, #### [facility] [address] [place], [address] GAP 6 Normal 5-15 [facility] Comment on above: Performed By: #### L 400.2054, #### [facility] [address] [place], [address] GFR/1.73 sq M.predicted among non-blacks MDRD (S/P/Bld) [Vol rate/Area] 79 mL/min/{1.73_m2} Normal >60 [facility] Comment on above: Result Comment: Non- GFR Calc Performed By: #### L 400.2054, #### [facility] [address] [place], [address] Glucose [Mass/Vol] 87 mg/dL Normal 74-106 [facility] Comment on above: Performed By: #### L 400.2054, #### [facility] [address] [place], [address] Potassium [Moles/Vol] 3.8 mmol/L Normal 3.5-5.1 [facility] Comment on above: Performed By: #### L 400.2054, #### [facility] [address] [place], [address] Sodium [Moles/Vol] 138 mmol/L Normal 136-145 [facility] Comment on above: Performed By: #### L 400.0001, #### [facility] [address] [place], [address] Urea nitrogen [Mass/Vol] 11 mg/dL Normal 7-18 [facility] Comment on above: Performed By: #### L 400.0001, #### [facility] [facility] [address] [place], [address] Basophil percentageOrdered B y: Deacon Le on 10-15-2024 Basophils/100 WBC (Bld) 0.3 % 0-1 [facility] Bilirubin Test strip Ql (U)O rdered By: ED PROVIDER on 10-15-2024 Bilirubin Ql (U) Negative Negative [facility] Blood urea nitrogen (BUN)/cr eatinine ratioOrdered By: Deacon Le on 10-15-2024 Urea nitrogen/Creatinine [Mass ratio] 12.3 mg/mg 10-20 [facility] CBC W/Diff, Automatedon Absolute Lymph 2.24 X10 3/uL Normal 0.83-4.51 [facility] Comment on above: Performed By: #### L 400.0001, #### [facility] [address] [place], [address] Absolute Neut 3.7 X10 3/uL Normal 2.0-7.7 [facility] Comment on above: Performed By: #### L 400.0001, #### [facility] [address] [place], [address] Basophils/100 WBC (Bld) 0.3 % Normal 0-1 [facility] Comment on above: Performed By: #### L 400.0001, #### [facility] [address] [place], [address] Eosinophils/100 WBC (Bld) 1.5 % Normal 0-5 [facility] Comment on above: Performed By: #### L 400.0001, #### [facility] [address] [place], [address] Erythrocyte distribution width (RBC) [Ratio] 11.7 % Normal 11.6-14.6 [facility] Comment on above: Performed By: #### L 400.0001, #### [facility] [address] [place], [address] Hematocrit (Bld) [Volume fraction] 37.9 % Normal 37-47 [facility] Comment on above: Performed By: #### L 400.0001, #### [facility] [address] [place], [address] Hemoglobin (Bld) [Mass/Vol] 13.1 g/dL Normal 12.0-15.0 [facility] Comment on above: Performed By: #### L 400.0001, #### [facility] [address] [place], [address] IG% 0.300 Normal 0.0-0.9 [facility] Comment on above: Result Comment: IG% - Immature Granulocytes (promyelocytes, myelocytes and metamyelocytes) > 1% indicates that a LEFT SHIFT is Present. Performed By: #### L 400.0001, #### [facility] [address] [place], [address] Lymphocytes/100 WBC (Bld) 32.7 % Normal 19-41 [facility] Comment on above: Performed By: #### L 400.0001, #### [facility] [address] [place], [address] MCH (RBC) [Entitic mass] 30.0 pg Normal 27.0-32.0 [facility] Comment on above: Performed By: #### L 400.0001, #### [facility] [address] [place], [address] MCHC (RBC) [Mass/Vol] 34.6 g/dL Normal 32-36 [facility] Comment on above: Performed By: #### L 400.0001, #### [facility] [address] [place], [address] MCV (RBC) [Entitic vol] 86.9 fL Normal 81-99 [facility] Comment on above: Performed By: #### L 400.0001, #### [facility] [address] [place], [address] Monocytes/100 WBC (Bld) 11.4 % High 0-10 [facility] Comment on above: Performed By: #### L 400.0001, #### [facility] [address] [place], [address] Neutrophils/100 WBC (Bld) 53.8 % Normal 47-70 [facility] Comment on above: Performed By: #### L 400.0001, #### [facility] [address] [place], [address] Nucleated RBC (Bld) [#/Vol] 0 10*3/uL Normal 0-5 [facility] Comment on above: Performed By: #### L 400.0001, #### [facility] [address] [place], [address] Platelet mean volume (Bld) [Entitic vol] 10.0 fL Normal 6.2-12.0 [facility] Comment on above: Performed By: #### L 400.0001, #### [facility] [address] [place], [address] Platelets (Bld) [#/Vol] 317 10*3/uL Normal 150-450 [facility] Comment on above: Performed By: #### L 400.0001, 8 #### [facility] [address] [place], [address] RBC (Bld) [#/Vol] 4.36 10*6/uL Normal 4.2-5.4 [facility] Comment on above: Performed By: #### L 400.0001, #### [facility] [address] [place], [address] RDW SD 37.4 fl Normal 35.1-43.9 [facility] Comment on above: Performed By: #### L 400.0001, #### [facility] [address] [place], [address] WBC (Bld) [#/Vol] 6.9 10*3/uL Normal 4.4-11.0 [facility] Comment on above: Performed By: #### L 400.0001, #### [facility] [address] [place], [address] Carbon dioxide measurementOr dered By: Deacon Le on 10-15-2024 CO2 [Moles/Vol] 29.0 mmol/L 21.0-32.0 [facility] Chloride measurementOrdered By: Deacon Le on 10-15-2024 Chloride [Moles/Vol] 103 mmol/L 98-107 [facility] Emergency Department Summary on 10-15-2024 Emergency Department Summary [facility] Medical Records Department [address] [place] [address] Emergency Department Summary 10/15/24 MR#: [id number] Acct: [id number] Name: KOENIGPENNIE ALTON Rep #: [id number] : 1995 29 From: Deacon Le MD PCP: Dr. Lashawn Avila, DO Status:REG ER Location: ED HPI History of Present Illness Chief Complaint: Flank Pain Narrative Narrative: 29-year-old female past medical history of kidney stones presents at the recommendation of her urologist, Dr. Rodriguez, for pain control. She relates history that her first kidney stone was probably 3 months ago. She is now currently dealing with left-sided 8 mm stone in her ureter, and she also has stones in her bladder as well as her right kidney. She states that she was supposed to have lithotripsy and cystoscopy performed by her urologist on the but they moved up to tomorrow, October 16. She was taking Toradol at home which was not helping. She was also taking Percocet and ibuprofen which was not helping as well. She states that she called her urologist today and was told to come to the emergency department for pain control and if needed, admission for surgery tomorrow. Patient denies any exacerbating or alleviating factors. No fevers or chills, no vomiting. No hematuria. She states she is currently being treated for urinary tract infection. 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 , currently Genital herpes OCD (obsessive compulsive disorder) Anxiety Home Medications ???Medication ???Instructions ???Recorded ???Last Taken ???Type citalopram 20 mg tablet 20 mg PO DAILY 10/31/19 03/01/21 10:00 History 20 mg acyclovir 400 mg tablet See Rx Instructions .Route 05/26/24 Unknown Rx .COMPLEX #60 tabs bupropion HCl 150 mg tablet,12 hr 150 mg PO QDAY 07/16/24 Unknown History sustained-release (Wellbutrin SR) metronidazole 0.75 % (37.5 mg/5 1 appful vaginal .COMPLEX #70 grams 07/16/24 Unknown Rx gram) vaginal gel ciprofloxacin HCl 250 mg tablet 250 mg PO BID 10/14/24 Unknown History (Cipro) lorazepam 1 mg tablet 1 mg PO BID PRN PRN chronic pain 10/14/24 Unknown History spironolactone 100 mg tablet 100 mg PO DAILY 10/14/24 Unknown History Allergy/AdvReac Type Severity Reaction Status Date / Time amoxicillin (Amoxicillin) Allergy Rash Verified 10/15/24 16:44 Penicillins Allergy Rash Verified 10/15/24 16:44 Surgical History H/O foot surgery H/O dilation and curettage Social History adopted: No household members: family housing: house number of children: 3 current occupational status: employed current occupation: [employer] pets and animals: Yes Smoking Status: Current every day smoker tobacco type: cigarettes second hand exposure: No alcohol intake: current details: social- not while substance use type: does not use seatbelt use: always do you feel safe at home: Yes additional social history: Spouse: Ashon- student ([employer]- 6, [employer]-11) ROS ROS ED ROS Narrative Constitutional: No fever, no chills. HEENT: No sore throat. No neck pain. No loss of vision. No rhinorrhea. Cardiovascular: No chest pain. No palpitations. No pedal edema. Respiratory: No cough, no shortness of breath. Abdominal: No abdominal pain. Positive nausea. No vomiting. Genitourinary: No dysuria. No hematuria. Bilateral flank pain, but left greater than right. Musculoskeletal: No myalgias. No arthralgias. Neurologic: No headaches. No dizziness. No lightheadedness. Skin: No rash. No change in color. Psychiatric: No depression. No anxiety. EXAM Physical Exam Narrative Exam Narrative: Afebrile. Vital signs noted. Nontoxic-appearing. Cardiovascular examination reveals a regular rate and rhythm. Lungs are clear to auscultation bilaterally. Abdomen is soft and nontender with normoactive bowel sounds. Positive tenderness to percussion left flank. No guarding or rebound of the abdomen. Neurological examination nonfocal and nonlateralizing. Const Vital Signs: 10/15/24 16:44 10/15/24 18:43 10/15/24 18:53 Temperature 96.7 F L Temperature Source Temporal Pulse Rate 68 70 Respiratory Rate 18 18 Blood Pressure 113/70 123/81 H Blood Pressure Mean 84 95 Pulse Ox 99 99 Oxygen Delivery Method Room Air Room Air MDM MDM MDM Narrative Medical decision making narrative: Patient states she is having extreme pain in the left flank. She has not had fevers or chills. Differential diagnosis inc (more content not included)... Normal [facility] Eosinophil percentageOrdered By: Deacon Le on 10-15-2024 Eosinophils/100 WBC (Bld) 1.5 % 0-5 [facility] Epithelial cells.squamous LM Ql (Urine sed)Ordered By: ED PROVIDER on 10-15-2024 Epithelial cells.squamous LM.HPF (Urine sed) [#/Area] 0 /[HPF] 5-10 [facility] Erythrocyte distribution wid th ratioOrdered By: Deacon Le on 10-15-2024 Erythrocyte distribution width (RBC) [Ratio] 11.7 % 11.6-14.6 [facility] Erythrocyte distribution wid th standard deviationOrdered By: Deacon Le on 10-15-2024 Erythrocyte distribution width (RBC) [Entitic vol] 37.4 fL 35.1-43.9 [facility] Estimated glomerular filtrat ion rate (GFR) AmericanOrdered By: Deacon Le on 10-15-2024 Estimated GFR (MDRD) Amer 95 mL/min >60 [facility] Comment on above: GFR Calc Estimation of creatinine fransico aranceOrdered By: Deacon Le on 10-15-2024 Estimated Creatinine Clearance Calc 113.94 ml/min [facility] Glomerular filtration rate ( GFR) estimationOrdered By: Deacon Le on 10-15-2024 Estimated GFR (MDRD) Non-Af Amer 79 mL/min >60 [facility] Comment on above: Non- GFR Calc Glucose Ql (U)Ordered By: ED PROVIDER on 10-15-2024 Urine Glucose (UA) Normal mg/dl Normal [facility] Glucose measurementOrdered B y: Deacon Le on 10-15-2024 Glucose [Mass/Vol] 87 mg/dL 74-106 [facility] Hematocrit Auto (Bld) [Volum e fraction]Ordered By: Deacon Le on 10-15-2024 Hematocrit (Bld) [Volume fraction] 37.9 % 37-47 [facility] Hemoglobin measurementOrdere d By: Deacon Le on 10-15-2024 Hemoglobin (Bld) [Mass/Vol] 13.1 g/dL 12.0-15.0 [facility] Immature granulocytes/100 WB C Auto (Bld)Ordered By: Deacon Le on 10-15-2024 Immature granulocytes/100 WBC (Bld) 0.300 % 0.0-0.9 [facility] Comment on above: IG% - Immature Granu locytes (promyelocytes, myelocytes and metamyelocytes) > 1% indicates that a LEFT SHIFT is Present. Ketones Test strip Ql (U)Ord ered By: ED PROVIDER on 10-15-2024 Ketones Ql (U) Negative Negative [facility] Lymphocytes Auto (Unsp spec) [#/Vol]Ordered By: Deacon Le on 10-15-2024 Lymphocytes (Bld) [#/Vol] 2.24 10*3/uL 0.83-4.51 [facility] Lymphocytes/100 WBC Auto (Un sp spec)Ordered By: Deacon Le on 10-15-2024 Lymphocytes/100 WBC (Bld) 32.7 % 19-41 [facility] MCV (mean corpuscular volume ) determinationOrdered By: Deacon Le on 10-15-2024 MCV (RBC) [Entitic vol] 86.9 fL 81-99 [facility] Mean corpuscular hemoglobin (MCH) determinationOrdered By: Deacon Le on 10-15-2024 MCH (RBC) [Entitic mass] 30.0 pg 27.0-32.0 [facility] Mean corpuscular hemoglobin concentration (MCHC) determinationOrdered By: Deacon Le on 10-15-2024 MCHC (RBC) [Mass/Vol] 34.6 g/dL 32-36 [facility] Mean platelet volume determi nationOrdered By: Deacon Le on 10-15-2024 Platelet mean volume (Bld) [Entitic vol] 10.0 fL 6.2-12.0 [facility] Microscopic analysis of urin e for red blood cells (RBC)Ordered By: ED PROVIDER on 10-15-2024 Urine RBC 0 SEEN /hpf 0-5 [facility] Monocyte percentageOrdered B y: Deacon Le on 10-15-2024 Monocytes/100 WBC (Bld) 11.4 % High 0-10 [facility] Mucus LM Ql (Urine sed)Order ed By: ED PROVIDER on 10-15-2024 Mucus Ql (Urine sed) 0 SEEN /hpf [facility] Neutrophil percentageOrdered By: Deacon Le on 10-15-2024 Neutrophils/100 WBC (Bld) 53.8 % 47-70 [facility] Nitrite Test strip Ql (U)Ord ered By: ED PROVIDER on 10-15-2024 Nitrite Ql (U) Negative Negative [facility] Nucleated red blood cell per centageOrdered By: Deacon Le on 10-15-2024 Nucleated RBC/100 WBC (Bld) [Ratio] 0 % 0-5 [facility] Platelet countOrdered By: Rob Le on 10-15-2024 Platelets (Bld) [#/Vol] 317 10*3/uL 150-450 [facility] Potassium measurementOrdered By: Deacon Le on 10-15-2024 Potassium [Moles/Vol] 3.8 mmol/L 3.5-5.1 [facility] Protein Test strip Ql (U)Ord ered By: ED PROVIDER on 10-15-2024 Protein Ql (U) Negative Negative [facility] RBC Auto (Bld) [#/Vol]Ordere d By: Deacon Le on 10-15-2024 RBC (Bld) [#/Vol] 4.36 10*6/uL 4.2-5.4 [facility] Serum anion gap measurementO rdered By: Deacon Le on 10-15-2024 Anion gap [Moles/Vol] 6 mmol/L 5-15 [facility] Serum or plasma calcium eliezer urement (mass/volume)Ordered By: Deacon Le on 10-15-2024 Calcium [Mass/Vol] 9.0 mg/dL 8.5-10.1 [facility] Serum or plasma creatinine m easurement (mass/volume)Ordered By: Deacon Le on 10-15-2024 Creatinine [Mass/Vol] 0.90 mg/dL 0.55-1.02 [facility] Comment on above: The validity of the calculated GFR & GFRAA in patients over 70 years has not been determined. Clinical correlation is essential. Serum or plasma urea nitroge n measurement (mass/volume)Ordered By: Deacon Le on 10-15-2024 Urea nitrogen [Mass/Vol] 11 mg/dL 7-18 [facility] Sodium levelOrdered By: Deacon Le on 10-15-2024 Sodium [Moles/Vol] 138 mmol/L 136-145 [facility] Urinalysis, Completeon 10-15 BACTERIA RARE Normal None Seen [facility] Comment on above: Order Comment: JJ CTOR TO SPECIFY Performed By: #### L 400.0001, M100.678 #### [facility] [address] [place], [address] EPI,SQUAMOUS 0-5 SEEN Normal 5-10 [facility] Comment on above: Order Comment: JJ CTOR TO SPECIFY Performed By: #### L 400.0001, M100.678 #### [facility] [address] [place], [address] Mucus Ql (Urine sed) 0 SEEN Normal [facility] Comment on above: Order Comment: JJ CTOR TO SPECIFY Performed By: #### L 400.0001, M100.678 #### [facility] [address] [place], [address] RBC 0 SEEN Normal 0-5 [facility] Comment on above: Order Comment: JJ CTOR TO SPECIFY Performed By: #### L 400.0001, M100.678 #### [facility] [address] [place], [address] WBC 0 SEEN Normal 0-5 [facility] Comment on above: Order Comment: JJ CTOR TO SPECIFY Performed By: #### L 400.0001, M100.678 #### [facility] [address] [place], [address] Urine blood detectionOrdered By: ED PROVIDER on 10-15-2024 Urine Occult Blood Negative Negative [facility] Urine clarityOrdered By: ED PROVIDER on 10-15-2024 Clarity (U) Clear Clear [facility] Urine color determinationOrd ered By: ED PROVIDER on 10-15-2024 Color (U) Yellow Yellow [facility] Urine leukocyte esterase det ection by dipstickOrdered By: ED PROVIDER on 10-15-2024 Leukocyte esterase Test strip Ql (U) Negative Negative [facility] Urine pHOrdered By: ED PROVI DANE on 10-15-2024 pH (U) 6.0 [pH] 5.0 - 8.0 [facility] Urine specific gravity measu rementOrdered By: ED PROVIDER on 10-15-2024 Specific gravity (U) [Rel density] 1.015 1.002-1.030 [facility] Urobilinogen Ql (U)Ordered B y: ED PROVIDER on 10-15-2024 Urine Urobilinogen Normal mg/dl Normal [facility] White blood cell (WBC) count Ordered By: Deacon Le on 10-15-2024 WBC (Bld) [#/Vol] 6.9 10*3/uL 4.4-11.0 [facility] White blood cell countOrdere d By: ED PROVIDER on 10-15-2024 Urine WBC 0 SEEN /hpf 0-[address] [facility] [address] ABDOMEN/PELVIS W/O CONTRA STon 10-12-2024 CT ABDOMEN/PELVIS W/O CONTRAST ORIGINAL EXAMINATION: CT OF THE ABDOMEN AND PELVIS WITHOUT TGIJMJYV37/28/2024 11:43 pm TECHNIQUE: CT of the abdomen and pelvis was performed without the administration of intravenous contrast. Multiplanar reformatted images are provided for review. Automated exposure control, iterative reconstruction, and/or weight based adjustment of the mA/kV was utilized to reduce the radiation dose to as low as reasonably achievable. COMPARISON: 08/15/2024 HISTORY: ORDERING SYSTEM PROVIDED HISTORY: Reason for Exam: BILATERAL flank pain FINDINGS: 4 mm subpleural left lower lobe nodule is unchanged. The visualized lower thoracic structures are otherwise unremarkable. Partially visualized bilateral breast prostheses. No acute osseous or soft tissue abnormality. The liver is unremarkable in size and contour. The gallbladder, pancreas, spleen, adrenal glands are unremarkable. The nonenhanced kidneys are without evidence of hydronephrosis. Multiple bilateral nonobstructive renal calculi are unchanged measuring approximately 5 mm on the right and 8 mm on the left. The ureters are normal course and caliber. There is no definite evidence of urolithiasis. The visualized esophagus, stomach, and duodenum are unremarkable. The visualized aorta is nonaneurysmal. The GI tract exhibits no acute abnormalities. Unremarkable appendix. No pathologically enlarged retroperitoneal, mesenteric, or pelvic lymph nodes are identified. There is no free intraperitoneal air or fluid. The urinary bladder is well-distended without wall thickening or focal mass. Punctate left-sided bladder calculus is unchanged. The uterus is within normal limits for age. Interval migration of right-sided tubal ligation clip to the level of the rectum (image 98 of series 2). Other previously seen to tubal ligation clips are in stable position. IMPRESSION: Unchanged bilateral nonobstructive renal calculi. No evidence of hydronephrosis. Unchanged punctate left-sided bladder calculus. Interval migration of right-sided tubal ligation clip to the level of the rectum. I have personally reviewed the images of this examination and agree with the resident's findings and interpretation. Interpreted by: Cirilo Munoz Preliminary Report By: Delvin Jordan Electronically signed By Cirilo Munoz Dictated Date: 10/11/2024 11:50:42 PM Prelim Date: 10/12/2024 12:10:03 AM Sign Date: 10/12/2024 12:17:04 AM Ordering Provider: SANDEE Wing [facility] .Auto Diffon 10-11-2024 Basophil, Absolute 0.1 10 3/mcL Normal 0.0-0.2 [facility] Comment on above: Performed By: #### A OMER, CBC, GFR, DEBBIE DAUGHERTY MDW #### [address] [address] Basophils/100 WBC (Bld) 0.8 % Normal 0.0-2.5 [facility] Comment on above: Performed By: #### A OMER, CBC, GFR, DEBBIE DAUGHERTY MDW #### [address] [address] Eosinophil, Absolute 0.1 10 3/mcL Normal 0.0-0.7 [facility] Comment on above: Performed By: #### A OMER, CBC, GFR, DEBBIE DAUGHERTY MDW #### [address] [address] Eosinophils/100 WBC (Bld) 2.0 % Normal 0.0-7.0 [facility] Comment on above: Performed By: #### A OMER, CBC, GFR, BMP, NEREIDA LEWIS #### [address] [address] Lymphocyte, Absolute 2.1 10 3/mcL Normal 0.9-4.3 [facility] Comment on above: Performed By: #### A OMER, CBC, GFR, BMP, NEREIDA LEWIS #### [address] [address] Lymphocytes/100 WBC (Bld) 30.1 % Normal 20.0-40.0 [facility] Comment on above: Performed By: #### A OMER, CBC, GFR, BMPDEBBIE MDW #### [address] [address] Monocyte, Absolute 0.7 10 3/mcL Normal 0.1-1.4 [facility] Comment on above: Performed By: #### A OMER, CBC, GFR, BMPDEBBIE MDW #### [address] [address] Monocytes/100 WBC (Bld) 9.6 % Normal 2.0-13.0 [facility] Comment on above: Performed By: #### A OMER, CBC, GFR, BMPDEBBIE MDW #### [address] [address] Neutrophils/100 WBC (Bld) 57.5 % Normal 50.0-75.0 [facility] Comment on above: Performed By: #### A OMER, CBC, GFR, BMPDEBBIE MDW #### [address] [address] .GFRon 10-11-2024 GFR 101 ml/min/1.73sqm Normal [facility] Comment on above: Result Comment: GFR Population mean for , Non- Americans Ages 20-29 = 116 mL/min/1.73 sq.m. Ages 30-39 = 107 mL/min/1.73 sq.m. Ages 40-49 = 99 mL/min/1.73 sq.m. Ages 50-59 = 93 mL/min/1.73 sq.m. Ages 60-69 = 85 mL/min/1.73 sq.m. Ages 70+ = 75 mL/min/1.73 sq.m. Chronic Kidney Disease: Less than 60 mL/min/1.73 square meters End Stage Renal Disease: Less than 15 mL/min/1.73 square meters Performed By: #### A OMER, CBC, GFR, BMP, ADIFFNEREIDA #### [address] [address] GFR Non- 84 ml/min/1.73sqm Normal [facility] Comment on above: Result Comment: GFR Population mean for , Non- Americans Ages 20-29 = 116 mL/min/1.73 sq.m. Ages 30-39 = 107 mL/min/1.73 sq.m. Ages 40-49 = 99 mL/min/1.73 sq.m. Ages 50-59 = 93 mL/min/1.73 sq.m. Ages 60-69 = 85 mL/min/1.73 sq.m. Ages 70+ = 75 mL/min/1.73 sq.m. Chronic Kidney Disease: Less than 60 mL/min/1.73 square meters End Stage Renal Disease: Less than 15 mL/min/1.73 square meters Performed By: #### A OMER, CBC, GFR, BMP, ADNEREIDA HERNANDEZ #### [address] [address] .MDWon 10-11-2024 Monocyte Distribution Width 17.62 Normal 0.00-20.00 [facility] Comment on above: Result Comment: For ED adult patients suspected of sepsis, MDW<=20.0 does not rule out sepsis or risk of sepsis Performed By: #### A OMER, CBC, GFR, BMP, ADIFFNEREIDA #### [address] [address] .NEUABSon 10-11-2024 Neutrophil, Absolute 3.9 10 3/mcL Normal 2.3-8.1 [facility] Comment on above: Performed By: #### A OMER, CBC, GFR, DEBBIE DAUGHERTY MDW #### [address] [address] .Urinalysis Microscopic (AO) on 10-11-2024 UA Bacteria Trace Abnormal [facility] Comment on above: Performed By: #### U AMICAO PREGU, UA #### [address] [address] UA RBC 0-5 Abnormal None Seen [facility] Comment on above: Performed By: #### U AMICAO PREGU, UA #### [address] [address] UA Squam Epithelial 15-25 Abnormal None Seen [facility] Comment on above: Performed By: #### U AMICAO PREGU, UA #### [address] [address] UA WBC 15-25 Abnormal None Seen [facility] Comment on above: Performed By: #### U AMICAO PREGU, UA #### [address] [address] BMPon 10-11-2024 BUN/Creatinine Ratio 16 ratio Normal 7-27 [facility] Comment on above: Performed By: #### A OEMR, CBC, GFR, DEBBIE DAUGHERTY MDW #### [address] [address] Calcium [Mass/Vol] 8.8 mg/dL Normal 8.4-10.2 [facility] Comment on above: Performed By: #### A OMER, CBC, GFR, DEBBIE DAUGHERTY MDW #### [address] [address] Chloride [Moles/Vol] 103 mmol/L Normal 98-107 [facility] [facility] Comment on above: Performed By: #### A OMER, CBC, GFR, DEBBIE DAUGHERTY MDW #### [address] [address] CO2 [Moles/Vol] 30 mmol/L High 22-29 [facility] Comment on above: Performed By: #### A OMER, CBC, GFR, BMPDEBBIE MDW #### [address] [address] Creatinine [Mass/Vol] 0.81 mg/dL Normal 0.55-1.02 [facility] Comment on above: Result Comment: Test ing performed on Xpreso Dimension EXL analyzer using a modified kinetic Leah technique. Performed By: #### A OMER, CBC, GFR, DEBBIE DAUGHERTY MDW #### [address] [address] Electrolyte Balance 6.0 mEq/L Normal 4.0-15.0 [facility] Comment on above: Performed By: #### A OMER, CBC, GFR, DEBBIE DAUGHERTY MDW #### [address] [address] Glucose [Mass/Vol] 94 mg/dL Normal 70-105 [facility] Comment on above: Performed By: #### A OMER, CBC, GFR, DEBBIE DAUGHERTY MDW #### [address] [address] Potassium [Moles/Vol] 4.2 mmol/L Normal 3.5-5.1 [facility] Comment on above: Performed By: #### A OMER, CBC, GFR, BMPDEBBIE MDW #### [address] [address] Sodium [Moles/Vol] 139 mmol/L Normal 136-145 [facility] Comment on above: Performed By: #### A OMER, CBC, GFR, BMPDEBBIE MDW #### [address] [address] Urea nitrogen [Mass/Vol] 13 mg/dL Normal 7-18 [facility] Comment on above: Performed By: #### A OMER, CBC, GFR, BMPDEBBIE MDW #### [address] [address] CBCon 10-11-2024 Erythrocyte distribution width (RBC) [Ratio] 12.7 % Normal 11.5-15.5 [facility] Comment on above: Performed By: #### A OMER, CBC, GFR, DEBBIE DAUGHERTY MDW #### [place] [address] Hematocrit (Bld) [Volume fraction] 37.7 % Normal 34.0-46.0 [facility] Comment on above: Performed By: #### A OMER, CBC, GFR, DEBBIE DAUGHERTY MDW #### [place] [address] Hgb 13.0 G/dL Normal 12.0-16.0 [facility] Comment on above: Performed By: #### A OMER, CBC, GFR, DEBBIE DAUGHERTY MDW #### [address] [address] MCH (RBC) [Entitic mass] 30.4 pg Normal 27.0-33.0 [facility] Comment on above: Performed By: #### A OMER, CBC, GFR, DEBBIE DAUGHERTY MDW #### [address] [address] MCHC 34.5 G/dL Normal 32.0-36.0 [facility] Comment on above: Performed By: #### A OMER, CBC, GFR, BMPDEBBIE MDW #### [address] [address] MCV (RBC) [Entitic vol] 88.2 fL Normal 80.0-99.0 [facility] Comment on above: Performed By: #### A OMER, CBC, GFR, DEBBIE DAUGHERTY MDW #### [address] [address] Platelet 286 10 3/mcL Normal 150-450 [facility] Comment on above: Performed By: #### A OMER, CBC, GFR, BMPDEBBIE MDW #### [place] [address] [place], [place] [address] Platelet mean volume (Bld) [Entitic vol] 8.1 fL Normal 6.6-10.5 [facility] Comment on above: Performed By: #### A OMER, CBC, GFR, BMP, NEREIDA LEWIS #### [place] [address] [place] [address] RBC 4.27 10 6/mcL Normal 4.10-5.30 [facility] Comment on above: Performed By: #### A OMER, CBC, GFR, DEBBIE DAUGHERTY MDW #### [place] [address] WBC 6.8 10 3/mcL Normal 4.5-10.8 [facility] Comment on above: Performed By: #### A OMER, CBC, GFR, DEBBIE DAUGHERTY MDW #### [place] [address] LABORATORYOrdered By: SYSTEM SYSTEM on 10-11-2024 Basophils (Bld) [#/Vol] 0.1 103/mcL Normal 0.0 - 0.2 10^3/mcL AO Workflow SS Basophils/100 WBC (Bld) 0.8 % Normal 0.0 - 2.5 % AO Workflow SS Calcium [Mass/Vol] 8.8 mg/dL Normal 8.4 - 10. 2 mg/dL AO ADM SS Chloride [Moles/Vol] 103 mmol/L Normal 98 - 10 7 mmol/L AO ADM SS CO2 [Moles/Vol] 30 mmol/L High 22 - 29 mmol/L AO ADM SS Creatinine [Mass/Vol] 0.81 mg/dL Normal 0.55 - 1.02 mg/dL AO ADM SS Comment on above: Interpretive Data: T esting performed on Siemens Dimension EXL analyzer using a modified kinetic Leah technique. Electrolyte Balance 6.0 mEq/L Normal 4.0 - 15 .0 mEq/L AO ADM SS Eosinophil, Absolute 0.1 103/mcL Normal 0.0 - 0 .7 10^3/mcL AO Workflow SS Eosinophils/100 WBC (Bld) 2.0 % Normal 0.0 - 7.0 % AO Workflow SS Erythrocyte distribution width (RBC) [Ratio] 12.7 % Normal 11.5 - 15.5 % AO Workflow SS GFR/1.73 sq M.predicted among blacks MDRD (S/P/Bld) [Vol rate/Area] 101 ml/min/1.73sqm Invalid Interpretation Code AO Chemistry S Comment on above: Interpretive Data: GFR Population mean for , Non- Americans Ages 20-29 = 116 mL/min/1.73 sq.m. Ages 30-39 = 107 mL/min/1.73 sq.m. Ages 40-49 = 99 mL/min/1.73 sq.m. Ages 50-59 = 93 mL/min/1.73 sq.m. Ages 60-69 = 85 mL/min/1.73 sq.m. Ages 70+ = 75 mL/min/1.73 sq.m. Chronic Kidney Disease: Less than 60 mL/min/1.73 square meters End Stage Renal Disease: Less than 15 mL/min/1.73 square meters GFR/1.73 sq M.predicted among non-blacks MDRD (S/P/Bld) [Vol rate/Area] 84 ml/min/1.73sqm Invalid Interpretation Code AO Chemistry S Comment on above: Interpretive Data: GFR Population mean for , Non- Americans Ages 20-29 = 116 mL/min/1.73 sq.m. Ages 30-39 = 107 mL/min/1.73 sq.m. Ages 40-49 = 99 mL/min/1.73 sq.m. Ages 50-59 = 93 mL/min/1.73 sq.m. Ages 60-69 = 85 mL/min/1.73 sq.m. Ages 70+ = 75 mL/min/1.73 sq.m. Chronic Kidney Disease: Less than 60 mL/min/1.73 square meters End Stage Renal Disease: Less than 15 mL/min/1.73 square meters Glucose [Mass/Vol] 94 mg/dL Normal 70 - 105 mg/dL AO ADM SS Hematocrit (Bld) [Volume fraction] 37.7 % Normal 34.0 - 46.0 % AO Workflow SS Hemoglobin (Bld) [Mass/Vol] 13.0 G/dL Normal 12.0 - 16.0 G/dL AO Workflow SS Lymphocytes (Bld) [#/Vol] 2.1 103/mcL Normal 0.9 - 4.3 10^3/mcL AO Workflow SS Lymphocytes/100 WBC (Bld) 30.1 % Normal 20.0 - 40.0 % AO Workflow SS MCH (RBC) [Entitic mass] 30.4 pg Normal 27. 0 - 33.0 pg AO Workflow SS MCHC 34.5 G/dL Normal 32.0 - 36.0 G/dL AO Workflow SS MCV (RBC) [Entitic vol] 88.2 fL Normal 80.0 - 99.0 fL AO Workflow SS Monocyte distribution width Auto (Bld) [Entitic vol] 17.62 1 Normal 0.00 - 20.00 AO Workflow SS Comment on above: Result Comment: For ED adult patients suspected of sepsis, MDW<=20.0 does not rule out sepsis or risk of sepsis Monocytes (Bld) [#/Vol] 0.7 103/mcL Normal 0.1 - 1.4 10^3/mcL AO Workflow SS Monocytes/100 WBC (Bld) 9.6 % Normal 2.0 - 13.0 % AO Workflow SS Neutrophils (Bld) [#/Vol] 3.9 103/mcL Normal 2.3 - 8.1 10^3/mcL AO Workflow SS Neutrophils/100 WBC (Bld) 57.5 % Normal 50.0 - 75.0 % AO Workflow SS Platelet mean volume (Bld) [Entitic vol] 8.1 fL Normal 6.6 - 10.5 fL AO Workflow SS Platelets (Bld) [#/Vol] 286 103/mcL Normal 150 - 450 10^3/mcL AO Workflow SS Potassium [Moles/Vol] 4.2 mmol/L Normal 3.5 - 5.1 mmol/L AO ADM SS RBC (Bld) [#/Vol] 4.27 106/mcL Normal 4.10 - 5.3 0 10^6/mcL AO Workflow SS Sodium [Moles/Vol] 139 mmol/L Normal 136 - 145 mmol/L AO ADM SS Urea nitrogen [Mass/Vol] 13 mg/dL Normal 7 - 18 mg/d L AO ADM SS Urea nitrogen/Creatinine [Mass ratio] 16 ratio Normal 7 - 27 ratio AO ADM SS WBC (Bld) [#/Vol] 6.8 103/mcL Normal 4.5 - 10.8 10^3/mcL AO Workflow SS LABORATORYOrdered By: Ines Esparza on 10-11-2024 Appearance (U) Cloudy *ABN* (10/11/24 10:06 PM) Invalid Interpretation Code Clear AO Auto Urine SS Bacteria LM.HPF (Urine sed) [#/Area] Trace /HPF Invalid Interpretation Code AO Auto Urine SS Bilirubin Ql (U) Negative (10/11/24 10:06 PM) Normal Negative AO Auto Urine SS Color (U) Yellow (10/11/24 10:06 PM) Normal AO Auto Urine SS Glucose Test strip (U) [Mass/Vol] Negative Normal Negative AO Auto Urine SS HCG ( test) Ql Negative (10/11/24 10:06 PM) Normal AO Manual Urine SS Hemoglobin Auto test strip (U) [Mass/Vol] Negative (10/11/24 10:06 PM) Normal Negative AO Auto Urine SS Ketones Ql (U) Negative Normal Negative AO Auto Ur ine SS test (u) int Not detected Invalid Interpretation Code AO Manual Urine SS UA Leuk Est Small *ABN* (10/11/24 10:06 PM) Invalid Interpretation Code Negative AO Auto Urine SS UA Nitrite Negative (10/11/24 10:06 PM) Normal Negative AO Auto Urine SS UA pH 8.0 (10/11/24 10:06 PM) Normal 5.0 - 8.0 AO Auto Urine SS UA Protein Negative Normal Negative AO Auto Urine SS UA RBC 0-5 /HPF Invalid Interpretation Code None Seen AO Auto Urine SS UA Spec Grav 1.020 (10/11/24 10:06 PM) Normal 1.015-1.025 AO Auto Urine SS UA Specimen Type Clean Catch (10/11/24 10:06 PM) Normal AO Auto Urine SS UA Squam Epithelial 15-25 /HPF Invalid Interpretation Code None Seen AO Auto Urine SS UA Urobilinogen 0.2 E.U./dL Normal 0.2-1.0 AO Auto Urine SS WBC LM.HPF (Urine sed) [#/Area] 15-25 /HPF Invalid Interpretation Code None Seen AO Auto Urine SS PREGUon 10-11-2024 HCG ( test) Ql (U) Negative Normal [facility] Comment on above: Performed By: #### U RFIDA PREGU, UA #### [address] [address] test (u) int Not detected Invalid Interpretation Code [facility] Comment on above: Performed By: #### U AMICAO, PREGU, UA #### [address] [address] UAon 10-11-2024 Color (U) Yellow Normal [facility] Comment on above: Performed By: #### U AMICAO, PREGU, UA #### [place] [address] Glucose (U) [Mass/Vol] Negative Normal Negative [facility] Comment on above: Performed By: #### U AMICAO, PREGU, UA #### [place] [address] Ketones Ql (U) Negative Normal Negative [facility] Comment on above: Performed By: #### U AMICAO, PREGU, UA #### [place] [address] UA Appear Cloudy Abnormal Clear [facility] Comment on above: Performed By: #### U AMICAO, PREGU, UA #### [address] [address] UA Blood Negative Normal Negative [facility] Comment on above: Performed By: #### U AMICAO, PREGU, UA #### [address] [address] UA Leuk Est Small Abnormal Negative [facility] Comment on above: Performed By: #### U AMICAO, PREGU, UA #### [address] [address] UA Nitrite Negative Normal Negative [facility] Comment on above: Performed By: #### U AMICAO, PREGU, UA #### [address] [address] UA pH 8.0 Normal 5.0 - 8.0 [facility] Comment on above: Performed By: #### U AMICAO, PREGU, UA #### [place] [id number] UA Protein Negative Normal Negative [facility] Comment on above: Performed By: #### U AMICAO, PREGU, UA #### [place] [address] [place] [id number] UA Spec Grav 1.020 Normal 1.015-1.025 [facility] Comment on above: Performed By: #### U AMICAO, PREGU, UA #### [place] [address] UA Specimen Type Clean Catch Normal [facility] Comment on above: Performed By: #### U AMICAO, PREGU, UA #### [place] [address] UA Urobilinogen 0.2 E.U./dL Normal 0.2-1.0 [facility] Comment on above: Performed By: #### U AMICAO, PREGU, UA #### [place] [address] Urobilinogen (U) [Mass/Vol] Negative Normal Negative [facility] Comment on above: Performed By: #### U AMICAO, PREGU, UA #### [place] [address] Abdomen Single Viewon 2023 Abdomen Single View [facility] Services [address] [place], [place] [id number] Abdomen Single View MR#: [id number] Acct: [id number] Name: PENNIE KOENIG Rep #: [id number] : 1995 F 29 From: Jared kendrick MD PCP: Dr. Lashawn Avila, DO Status: REG CLI Study: Abdomen Single View Date of Exam: 09/24/24 Exam# [id number] Ordering Dr: Brittany Rodriguez MD -[id number] INDICATION: KUB- STONES EXAMINATION/TECHNIQ UE: X-RAY - XR Abdomen 1 View COMPARISON: Prior study dated: Report from 09/24/2012. Images not available. FINDINGS: BOWEL GAS PATTERN: Non-obstructive. No bowel or stomach distention. Moderate colonic stool burden. FREE AIR: Not assessed on a single supine view. ORGANOMEGALY: Not seen. CALCIFICATIONS: There is a 0.6 cm calcification overlying the lower pole of the left kidney. LOWER CHEST: No acute pathology. BONES AND SOFT TISSUES: No acute pathology. Multiple pelvic clips. RAD/Abdomen Single View IMPRESSION: 0.6 cm calcification overlies the lower pole of the left kidney. Electronically Signed: Jared Taylor MD at 23:48 EST Reading Location ID and State: [address] [place] [address] Tel , Service support , CC: Dr. Brittany Rodriguez MD; Dr. Lashawn Avila DO Travel Ot: Signed Normal [facility] .Auto Diffon 08-15-2024 Basophil, Absolute 0.0 10 3/mcL Normal 0.0-0.2 [facility] Comment on above: Performed By: #### LASHONDA GOOD, UA #### [place] [address] [place], [place] [address] Basophils/100 WBC (Bld) 0.6 % Normal 0.0-2.5 [facility] Comment on above: Performed By: #### LASHONDA GOOD, UA #### [place] [address] [place], [place] [address] Eosinophil, Absolute 0.2 10 3/mcL Normal 0.0-0.7 [facility] Comment on above: Performed By: #### LASHONDA GOOD, UA #### [place] [address] [place], [place] [address] Eosinophils/100 WBC (Bld) 3.5 % Normal 0.0-7.0 [facility] Comment on above: Performed By: #### U AMICAO, PREGU, UA #### [address] [address] Lymphocyte, Absolute 1.6 10 3/mcL Normal 0.9-4.3 [facility] Comment on above: Performed By: #### U AMICAO, PREGU, UA #### [address] [address] Lymphocytes/100 WBC (Bld) 33.4 % Normal 20.0-40.0 [facility] Comment on above: Performed By: #### U AMICAO, PREGU, UA #### [address] [address] Monocyte, Absolute 0.6 10 3/mcL Normal 0.1-1.4 [facility] Comment on above: Performed By: #### U AMICAO, PREGU, UA #### [address] [address] Monocytes/100 WBC (Bld) 12.3 % Normal 2.0-13.0 [facility] Comment on above: Performed By: #### U AMICAO, PREGU, UA #### [address] [address] Neutrophils/100 WBC (Bld) 50.2 % Normal 50.0-75.0 [facility] Comment on above: Performed By: #### U AMICAO, PREGU, UA #### [address] [address] .GFRon 08-15-2024 GFR 77 ml/min/1.73sqm Normal [facility] Comment on above: Result Comment: GFR Population mean for , Non- Americans Ages 20-29 = 116 mL/min/1.73 sq.m. Ages 30-39 = 107 mL/min/1.73 sq.m. Ages 40-49 = 99 mL/min/1.73 sq.m. Ages 50-59 = 93 mL/min/1.73 sq.m. Ages 60-69 = 85 mL/min/1.73 sq.m. Ages 70+ = 75 mL/min/1.73 sq.m. Chronic Kidney Disease: Less than 60 mL/min/1.73 square meters End Stage Renal Disease: Less than 15 mL/min/1.73 square meters Performed By: #### P REGU #### [address] [address] GFR Non- 63 ml/min/1.73sqm Normal [facility] Comment on above: Result Comment: GFR Population mean for , Non- Americans Ages 20-29 = 116 mL/min/1.73 sq.m. Ages 30-39 = 107 mL/min/1.73 sq.m. Ages 40-49 = 99 mL/min/1.73 sq.m. Ages 50-59 = 93 mL/min/1.73 sq.m. Ages 60-69 = 85 mL/min/1.73 sq.m. Ages 70+ = 75 mL/min/1.73 sq.m. Chronic Kidney Disease: Less than 60 mL/min/1.73 square meters End Stage Renal Disease: Less than 15 mL/min/1.73 square meters Performed By: #### P REGU #### [place] [address] .MDWon 08-15-2024 Monocyte Distribution Width 16.70 Normal 0.00-20.00 [facility] Comment on above: Result Comment: For ED adult patients suspected of sepsis, MDW<=20.0 does not rule out sepsis or risk of sepsis Performed By: #### U AMICAKareen PREGU, UA #### [place] [address] .NEUABSon 08-15-2024 Neutrophil, Absolute 2.4 10 3/mcL Normal 2.3-8.1 [facility] Comment on above: Performed By: #### U AMICAKareen PREGU, UA #### [place] [address] .Urinalysis Microscopic (AO) on 08-15-2024 UA RBC None Seen Normal None Seen [facility] Comment on above: Performed By: #### U AMICAO PREGU, UA #### [address] [address] UA Squam Epithelial 5-10 Abnormal None Seen [facility] Comment on above: Performed By: #### BRITTANY GOODU, UA #### [address] [address] UA WBC 0-5 Abnormal None Seen [facility] Comment on above: Performed By: #### BRITTANY GOODU, UA #### [place] [address] CBCon 08-15-2024 Erythrocyte distribution width (RBC) [Ratio] 13.1 % Normal 11.5-15.5 [facility] Comment on above: Performed By: #### BRITTANY GOODU, UA #### [place] [address] Hematocrit (Bld) [Volume fraction] 36.4 % Normal 34.0-46.0 [facility] Comment on above: Performed By: #### BRITTANY GOODU, UA #### [place] [address] Hgb 12.6 G/dL Normal 12.0-16.0 [facility] Comment on above: Performed By: #### Le GALICIA PREGU, UA #### [place] [address] MCH (RBC) [Entitic mass] 31.0 pg Normal 27.0-33.0 [facility] Comment on above: Performed By: #### Le GALICIA PREGU, UA #### [place] [address] MCHC 34.6 G/dL Normal 32.0-36.0 [facility] Comment on above: Performed By: #### Le GALICIA PREGU, UA #### [place] [address] MCV (RBC) [Entitic vol] 89.6 fL Normal 80.0-99.0 [facility] Comment on above: Performed By: #### U AMICAO, PREGU, UA #### [address] [address] Platelet 306 10 3/mcL Normal 150-450 [facility] Comment on above: Performed By: #### U AMICAO, PREGU, UA #### [address] [address] Platelet mean volume (Bld) [Entitic vol] 7.9 fL Normal 6.6-10.5 [facility] Comment on above: Performed By: #### U AMICAO, PREGU, UA #### [address] [address] RBC 4.07 10 6/mcL Low 4.10-5.30 [facility] Comment on above: Performed By: #### U AMICAO PREGU, UA #### [address] [address] WBC 4.7 10 3/mcL Normal 4.5-10.8 [facility] Comment on above: Performed By: #### U AMICAO PREGU, UA #### [address] [address] CMPon 08-15-2024 Albumin Level 3.6 G/dL Normal 3.5-5.0 [facility] Comment on above: Performed By: #### U AMICAO PREGU, UA #### [address] [address] Albumin/Globulin [Mass ratio] 1.0 {ratio} Low 1.1-2.5 [facility] Comment on above: Performed By: #### U AMICAO, PREGU, UA #### [address] [address] ALP [Catalytic activity/Vol] 98 U/L Normal 40-135 [facility] Comment on above: Performed By: #### U AMICAO, PREGU, UA #### [address] [address] ALT [Catalytic activity/Vol] 38 U/L Normal 14-59 [facility] Comment on above: Performed By: #### BRITTANY GOODU, UA #### [address] [address] AST [Catalytic activity/Vol] 21 U/L Normal 10-40 [facility] Comment on above: Performed By: #### Le GALICIA PREGU, UA #### [address] [address] Bili Total 0.2 mg/dL Normal 0.2-1.0 [facility] Comment on above: Result Comment: Use of this assay is not recommended for patients undergoing treatment with eltrombopag due to the potential for falsely elevated results. Performed By: #### Le GALICIA PREGU, UA #### [address] [address] BUN/Creatinine Ratio 9 ratio Normal 7-27 [facility] Comment on above: Performed By: #### BRITTANY GOODU, UA #### [address] [address] Calcium [Mass/Vol] 8.6 mg/dL Normal 8.4-10.2 [facility] Comment on above: Performed By: #### Le GALICIA PREGU, UA #### [address] [address] Chloride [Moles/Vol] 102 mmol/L Normal 98-107 [facility] Comment on above: Performed By: #### Le GALICIA PREGU, UA #### [address] [address] CO2 [Moles/Vol] 30 mmol/L High 22-29 [facility] Comment on above: Performed By: #### U FRIDA PREGU, UA #### [address] [address] Creatinine [Mass/Vol] 1.03 mg/dL High 0.55-1.02 [facility] Comment on above: Result Comment: Test ing performed on Siemens Dimension EXL analyzer using a modified kinetic Leah technique. Performed By: #### U AMICAO, PREGU, UA #### [address] [address] Electrolyte Balance 7.0 mEq/L Normal 4.0-15.0 [facility] Comment on above: Performed By: #### U AMICAO, PREGU, UA #### [address] [address] Globulin 3.5 G/dL Normal [facility] Comment on above: Performed By: #### U AMICAO, PREGU, UA #### [address] [address] Glucose [Mass/Vol] 91 mg/dL Normal 70-105 [facility] Comment on above: Performed By: #### U AMICAO, PREGU, UA #### [address] [address] Potassium [Moles/Vol] 4.4 mmol/L Normal 3.5-5.1 [facility] Comment on above: Performed By: #### U AMICAO, PREGU, UA #### [address] [address] Sodium [Moles/Vol] 139 mmol/L Normal 136-145 [facility] Comment on above: Performed By: #### U AMICAO, PREGU, UA #### [address] [address] Total Protein 7.1 G/dL Normal 6.4-8.2 [facility] Comment on above: Performed By: #### U AMICAO, PREGU, UA #### [address] [address] Urea nitrogen [Mass/Vol] 9 mg/dL Normal 7-18 [facility] Comment on above: Performed By: #### U AMICAO, PREGU, UA #### [address] [address] [address] ABDOMEN/PELVIS W/O CONTRA STon 08-15-2024 CT ABDOMEN/PELVIS W/O CONTRAST ORIGINAL EXAMINATION: CT OF THE ABDOMEN AND PELVIS WITHOUT CONTRAST 08/15/2024 3:59 pm TECHNIQUE: CT of the abdomen and pelvis was performed without the administration of intravenous contrast. Multiplanar reformatted images are provided for review. Automated exposure control, iterative reconstruction, and/or weight based adjustment of the mA/kV was utilized to reduce the radiation dose to as low as reasonably achievable. COMPARISON: 06/10/2024 HISTORY: ORDERING SYSTEM PROVIDED HISTORY: Reason for Exam: abdominal pain FINDINGS: Lower Chest: Subsegmental atelectasis. Partially imaged bilateral breast prosthesis. Organs: Bilateral nonobstructive nephrolithiasis measuring up to 8 mm on the left. No hydronephrosis or hydroureter. No definitive ureteral stone. Collapsed gallbladder. GI/Bowel: No wall thickening or dilatation. Normal appendix. Pelvis: No adnexal mass. Probable tiny dependent stone within the bladder. Trace free pelvic fluid, likely physiologic. Scattered tubal ligation clips. Peritoneum/Retroper itoneum: Nonaneurysmal abdominal aorta. No enlarged lymph nodes. Bones/Soft Tissues: No acute process. IMPRESSION: Bilateral nonobstructive nephrolithiasis. No hydronephrosis or hydroureter. Tiny layering bladder calculus. I have personally reviewed the images of this examination and agree with the resident's findings and interpretation. Interpreted by: Tino Vallecillo Preliminary Report By: Jose Varghese Electronically signed By Tino Vallecillo Dictated Date: 08/15/2024 4:03:32 PM Prelim Date: 08/15/2024 4:13:32 PM Sign Date: 08/15/2024 4:17:23 PM Ordering Provider: LISA Wing [facility] LABORATORYOrdered By: Elizabeth Rodas on 08-15-2024 HCG ( test) Ql Negative (08/15/24 2:53 PM) Normal AO Manual Urine SS test (u) int Not detected Invalid Interpretation Code AO Manual Urine SS UA RBC None Seen /HPF Normal None Seen AO Auto Ur ine SS UA Squam Epithelial 5-10 /HPF Invalid Interpretation Code None Seen AO Auto Urine SS WBC LM.HPF (Urine sed) [#/Area] 0-5 /HPF Invalid Interpretation Code None Seen AO Auto Urine SS LABORATORYOrdered By: SYSTEM SYSTEM on 08-15-2024 Albumin BCP dye [Mass/Vol] 3.6 G/dL Normal 3.5 - 5.0 G/dL AO ADM SS Albumin/Globulin [Mass ratio] 1.0 {ratio} Low 1.1 - 2.5 ratio AO ADM SS ALP [Catalytic activity/Vol] 98 U/L Normal 40 - 135 U/L AO ADM SS ALT With P-5'-P [Catalytic activity/Vol] 38 U/L Normal 14 - 59 U/L AO ADM SS AST With P-5'-P [Catalytic activity/Vol] 21 U/L Normal 10 - 40 U/L AO ADM SS Basophils (Bld) [#/Vol] 0.0 103/mcL Normal 0.0 - 0.2 10^3/mcL AO Workflow SS Basophils/100 WBC (Bld) 0.6 % Normal 0.0 - 2.5 % AO Workflow SS Bilirubin [Mass/Vol] 0.2 mg/dL Normal 0.2 - 1 .0 mg/dL AO ADM SS Comment on above: Interpretive Data: U se of this assay is not recommended for patients undergoing treatment with eltrombopag due to the potential for falsely elevated results. Calcium [Mass/Vol] 8.6 mg/dL Normal 8.4 - 10. 2 mg/dL AO ADM SS Chloride [Moles/Vol] 102 mmol/L Normal 98 - 10 7 mmol/L AO ADM SS CO2 [Moles/Vol] 30 mmol/L High 22 - 29 mmol/L AO ADM SS Creatinine [Mass/Vol] 1.03 mg/dL High 0.55 - 1.02 mg/dL AO ADM SS Comment on above: Interpretive Data: T esting performed on Siemens Dimension EXL analyzer using a modified kinetic Leah technique. Electrolyte Balance 7.0 mEq/L Normal 4.0 - 15 .0 mEq/L AO ADM SS Eosinophil, Absolute 0.2 103/mcL Normal 0.0 - 0 .7 10^3/mcL AO Workflow SS Eosinophils/100 WBC (Bld) 3.5 % Normal 0.0 - 7.0 % AO Workflow SS Erythrocyte distribution width (RBC) [Ratio] 13.1 % Normal 11.5 - 15.5 % AO Workflow SS GFR/1.73 sq M.predicted among blacks MDRD (S/P/Bld) [Vol rate/Area] 77 ml/min/1.73sqm Invalid Interpretation Code AO Chemistry S Comment on above: Interpretive Data: GFR Population mean for , Non- Americans Ages 20-29 = 116 mL/min/1.73 sq.m. Ages 30-39 = 107 mL/min/1.73 sq.m. Ages 40-49 = 99 mL/min/1.73 sq.m. Ages 50-59 = 93 mL/min/1.73 sq.m. Ages 60-69 = 85 mL/min/1.73 sq.m. Ages 70+ = 75 mL/min/1.73 sq.m. Chronic Kidney Disease: Less than 60 mL/min/1.73 square meters End Stage Renal Disease: Less than 15 mL/min/1.73 square meters GFR/1.73 sq M.predicted among non-blacks MDRD (S/P/Bld) [Vol rate/Area] 63 ml/min/1.73sqm Invalid Interpretation Code AO Chemistry S Comment on above: Interpretive Data: GFR Population mean for , Non- Americans Ages 20-29 = 116 mL/min/1.73 sq.m. Ages 30-39 = 107 mL/min/1.73 sq.m. Ages 40-49 = 99 mL/min/1.73 sq.m. Ages 50-59 = 93 mL/min/1.73 sq.m. Ages 60-69 = 85 mL/min/1.73 sq.m. Ages 70+ = 75 mL/min/1.73 sq.m. Chronic Kidney Disease: Less than 60 mL/min/1.73 square meters End Stage Renal Disease: Less than 15 mL/min/1.73 square meters Globulin 3.5 G/dL Invalid Interpretation Code AO ADM SS Glucose [Mass/Vol] 91 mg/dL Normal 70 - 105 mg/dL AO ADM SS Hematocrit (Bld) [Volume fraction] 36.4 % Normal 34.0 - 46.0 % AO Workflow SS Hemoglobin (Bld) [Mass/Vol] 12.6 G/dL Normal 12.0 - 16.0 G/dL AO Workflow SS Lymphocytes (Bld) [#/Vol] 1.6 103/mcL Normal 0.9 - 4.3 10^3/mcL AO Workflow SS Lymphocytes/100 WBC (Bld) 33.4 % Normal 20.0 - 40.0 % AO Workflow SS MCH (RBC) [Entitic mass] 31.0 pg Normal 27. 0 - 33.0 pg AO Workflow SS MCHC 34.6 G/dL Normal 32.0 - 36.0 G/dL AO Workflow SS MCV (RBC) [Entitic vol] 89.6 fL Normal 80.0 - 99.0 fL AO Workflow SS Monocyte distribution width Auto (Bld) [Entitic vol] 16.70 1 Normal 0.00 - 20.00 AO Workflow SS Comment on above: Result Comment: For ED adult patients suspected of sepsis, MDW<=20.0 does not rule out sepsis or risk of sepsis Monocytes (Bld) [#/Vol] 0.6 103/mcL Normal 0.1 - 1.4 10^3/mcL AO Workflow SS Monocytes/100 WBC (Bld) 12.3 % Normal 2.0 - 13.0 % AO Workflow SS Neutrophils (Bld) [#/Vol] 2.4 103/mcL Normal 2.3 - 8.1 10^3/mcL AO Workflow SS Neutrophils/100 WBC (Bld) 50.2 % Normal 50.0 - 75.0 % AO Workflow SS Platelet mean volume (Bld) [Entitic vol] 7.9 fL Normal 6.6 - 10.5 fL AO Workflow SS Platelets (Bld) [#/Vol] 306 103/mcL Normal 150 - 450 10^3/mcL AO Workflow SS Potassium [Moles/Vol] 4.4 mmol/L Normal 3.5 - 5.1 mmol/L AO ADM SS Protein [Mass/Vol] 7.1 G/dL Normal 6.4 - 8.2 G/dL AO ADM SS RBC (Bld) [#/Vol] 4.07 106/mcL Low 4.10 - 5.3 0 10^6/mcL AO Workflow SS Sodium [Moles/Vol] 139 mmol/L Normal 136 - 145 mmol/L AO ADM SS Urea nitrogen [Mass/Vol] 9 mg/dL Normal 7 - 18 mg/d L AO ADM SS Urea nitrogen/Creatinine [Mass ratio] 9 ratio Normal 7 - 27 ratio AO ADM SS WBC (Bld) [#/Vol] 4.7 103/mcL Normal 4.5 - 10.8 10^3/mcL AO Workflow SS LABORATORYOrdered By: Tate Killian on 08-15-2024 Appearance (U) Cloudy *ABN* (08/15/24 2:35 PM) Invalid Interpretation Code Clear AO Auto Urine SS Bilirubin Ql (U) Negative (08/15/24 2:35 PM) Normal Negative AO Auto Urine SS Color (U) Yellow (08/15/24 2:35 PM) Normal AO Auto Urine SS Glucose Test strip (U) [Mass/Vol] Negative Normal Negative AO Auto Urine SS Hemoglobin Auto test strip (U) [Mass/Vol] Negative (08/15/24 2:35 PM) Normal Negative AO Auto Urine SS Ketones Ql (U) Negative Normal Negative AO Auto Ur ine SS UA Leuk Est Negative (08/15/24 2:35 PM) Normal Negative AO Auto Urine SS UA Nitrite Negative (08/15/24 2:35 PM) Normal Negative AO Auto Urine SS UA pH 7.5 (08/15/24 2:35 PM) Normal 5.0 - 8.0 AO Auto Urine SS UA Protein Negative Normal Negative AO Auto Urine SS UA Spec Grav 1.020 (08/15/24 2:35 PM) Normal 1.015-1.025 AO Auto Urine SS UA Specimen Type Not Given (08/15/24 2:35 PM) Normal AO Auto Urine SS UA Urobilinogen 0.2 E.U./dL Normal 0.2-1.0 AO Auto Urine SS PREGUon 08-15-2024 HCG ( test) Ql (U) Negative Normal [facility] Comment on above: Performed By: #### P REGU #### [address] [address] test (u) int Not detected Invalid Interpretation Code [facility] Comment on above: Performed By: #### P REGU #### [address] [address] UAon 08-15-2024 Color (U) Yellow Normal [facility] Comment on above: Performed By: #### U AMICAO, PREGU, UA #### [address] [address] Glucose (U) [Mass/Vol] Negative Normal Negative [facility] Comment on above: Performed By: #### U AMICAO, PREGU, UA #### [place] [address] Ketones Ql (U) Negative Normal Negative [facility] Comment on above: Performed By: #### U AMICAO, PREGU, UA #### [place] [address] UA Appear Cloudy Abnormal Clear [facility] Comment on above: Performed By: #### U AMICAO, PREGU, UA #### [place] [address] UA Blood Negative Normal Negative [facility] Comment on above: Performed By: #### U AMICAO, PREGU, UA #### [place] [address] UA Leuk Est Negative Normal Negative [facility] Comment on above: Performed By: #### U AMICAO, PREGU, UA #### [place] [address] UA Nitrite Negative Normal Negative [facility] Comment on above: Performed By: #### U AMICAO, PREGU, UA #### [place] [address] UA pH 7.5 Normal 5.0 - 8.0 [facility] Comment on above: Performed By: #### U AMICAO, PREGU, UA #### [place] [address] UA Protein Negative Normal Negative [facility] Comment on above: Performed By: #### U AMICAO, PREGU, UA #### [place] [address] UA Spec Grav 1.020 Normal 1.015-1.025 [facility] Comment on above: Performed By: #### U AMICAO, PREGU, UA #### [place] [address] UA Specimen Type Not Given Normal [facility] Comment on above: Performed By: #### U AMICAO, PREGU, UA #### [address], [place] [address] UA Urobilinogen 0.2 E.U./dL Normal 0.2-1.0 [facility] Comment on above: Performed By: #### U AMICAO, PREGU, UA #### [facility] [address] [place], [place] [address] Urobilinogen (U) [Mass/Vol] Negative Normal Negative [facility] Comment on above: Performed By: #### U AMICAO, PREGU, UA #### [facility] [address] [place], [place] [address] Chest PA and Lateralon 07-23 Chest PA and Lateral [facility] [address] [place] [address] Chest PA and Lateral MR#: [id number] Acct: [id number] Name: PENNIE KOENIG Rep #: [id number] : 1995 F 29 From: Red Nix DO PCP: Dr. Lashawn Avila DO Status: REG CLI Study: Chest PA and Lateral Date of Exam: 07/23/24 Exam# [id number] Ordering Dr: Gustavo Torres PA -[id number] INDICATION: SHORTNESS OF BREATHE EXAMINATION/TECHNIQ UE: X-RAY - XR Chest 2 Views COMPARISON: February 08, 2013 FINDINGS: LINES/DEVICES: None. LUNGS: No consolidation, edema or effusion. No pneumothorax. MEDIASTINUM AND CARDIOVASCULAR STRUCTURES: Cardiac silhouette not enlarged. Central airways and mediastinal contour are unremarkable. BONES AND SOFT TISSUES: Unremarkable. RAD/Chest PA and Lateral IMPRESSION: No radiographic evidence of acute cardiopulmonary disease. Electronically Signed: Red Nix DO at 16:13 EDT , CC: KASIA Meredith; Dr. Lashawn Avila DO Travel Ot: Signed Normal [facility] Urgent Care Visit Reporton 1 Urgent Care Visit Report [facility] [address], [address] [place] [address] OFFICE VISIT Date of Service: 07/23/24 MR#: [id number] Acct: [id number] Name: PENNIE KOENIG Rep #: [id number] : 1995 Provider: KASIA Meredith Age/Sex: 29/F Location: [facility] Status: Signed Intake Vital Signs 07/16/24 09:11 07/23/24 15:43 Height 5 ft 8 in BP 122/80 H Blood Pressure Location Lt brachial Position Sitting Respiration 17 Pulse 63 Pulse Source NIBP Temp 97.9 F Temp Source Axillary Pulse Oximetry (%) 98 Oxygen Delivery Method room air Intake Visit Reasons: COUGH/CHEST CONGESTION Chief Complaint: cough, congest, SOB, grn mucus Steward/Stewardess Lounge Required: No Is patient in pain?: No Allergies amoxicillin (Amoxicillin) Allergy (Verified 07/23/24 15:44) Rash Penicillins Allergy (Verified 07/23/24 15:44) Rash Is last menstrual period known: No Post menopausal: No Patient : No Have you fallen in the past year?: No Nurse's Note: cough, congest, SOB, grn mucus x 3 weeks without improvement. denies asthma, negative covid test 3 days ago. [facility] Medical History delivery delivered Sterilization H/O shoulder dystocia in prior , currently 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 , currently Genital herpes OCD (obsessive compulsive disorder) Anxiety Surgical History H/O foot surgery H/O dilation and curettage Social History adopted: No household members: family housing: house number of children: 3 current occupational status: employed current occupation: [employer] pets and animals: Yes Smoking Status: Current every day smoker tobacco type: cigarettes second hand exposure: No alcohol intake: current details: social- not while substance use type: does not use seatbelt use: always do you feel safe at home: Yes additional social history: Spouse: Ashon- student ([employer]- 6, Wes-11) [facility] HPI Chief Complaint: cough, congest, SOB, grn mucus Details: PENNIE KOENIG, is a 29 F who presents to the office today for complaint of cough, congestion and shortness of breath as well as green mucus for the past 3 weeks without improvement. Patient denies any history of asthma and did have a negative COVID test 3 days ago. She denies hemoptysis or difficulty breathing or chest pain. No fever, chills or sweats. No nausea, vomiting or diarrhea. No loss of taste or smell. No other associated symptoms or alleviating/aggrava ting factors. ROS Const Constitutional: No other (6 system ROS completed with pertinent findings in the HPI otherwise normal.) Exam Const General: cooperative and well developed HENMT Head: normal to inspection and atraumatic Ears: hearing grossly normal bilaterally Nose: nasal discharge clear Face and sinus: normal facial exam Mouth: oral mucosae normal Throat: abnormal tonsil bilaterally hypertrophy 1+ Resp Effort Inspection: normal respiratory effort and no audible wheezes Auscultation: Bilateral: Expiratory Wheezes and Left: Rhonchi Cardio Rate: regular rate Rhythm: regular rhythm Neuro General: patient alert Psych Appearance: grossly normal Mental Status: mental status grossly normal Coding Level of Care Code Off vis,est,level 4 Diagnoses Acute bronchitis J20.9 Assessment and Plan Assessment and Plan (1) Acute bronchitis: Status: Acute Plan: X-ray read and interpreted by myself finding no pulmonary disease which was also later after patient was discharged the radiologist confirmed. Although no radiographic evidence of pneumonia is found patient will be started on azithromycin and Doxy with concern for possible early onset community-acquired pneumonia. Encouraged to get plenty of rest, drink lots of clear liquids, and use Tylenol or Ibuprofen (unless contraindicated) for fever and comfort. Patient also educated on other symptomatic management techniques. To be seen in 7-10 days if no improvement; sooner if worsening of symptoms. Patient advised of potential red flags and when appropriate to report to the ED. Patient verbalized understanding and agreement with all the above. Orders: Orders Chest PA and Lateral 07/23/24 R06.02 - Shortness of breath Medications: New azithromycin take 500 mg today (day 1), then 250 mg for 4 days (days 2-5) PO 6 tabs 0RF fluconazole may repeat second dose 72 hrs after first dose if symptoms persist 150 mg PO Q3D 2 tabs 0RF 2 doses doxycycline monohydrate 100 mg PO BID 20 caps 0RF 10 days Discontinued metronidazole Discontinued Reason: By Stop Date 500 mg PO BID 7 days 14 tabs 0RF Clinica (more content not included)... Normal [facility] Genital Culture Comprehensiv arile 07-18-2024 VAC Reason for Exam: vaginal irritation No yeast, Neisseria or beta-hemolytic Streptococcus isolated. G. vaginalis (Presumptive) Amount Growth 3+ Normal [facility] Comment on above: Performed By: #### L 400.0001, M100.678 #### [facility] [address] [place], [place], [address] Gram Stainon 07-16-2024 Reason for Exam: vaginal irritation Gram Stain 4+ Gram variable montse 1+ Gram positive cocci No Gram negative diplococci Score = 8 Interpretation: 0-3 Normal, 4-6 Intermediate, 7-10 Positive BV Normal [facility] Comment on above: Performed By: #### L 400.0001, M100.678 #### [facility] [address] [facility] [place], [address] News Production Assistant Office Visit Reporton 07-16-2024 News Production Assistant Office Visit Report 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: Annual Steward/Stewardess Lounge Required: No Is patient in pain?: No Allergies amoxicillin (Amoxicillin) Allergy (Verified 07/16/24 09:03) Rash Penicillins Allergy (Verified 07/16/24 09:03) Rash Medications ???Medication ???Instructions ???Recorded ???Confirmed ???Type citalopram 20 mg tablet 20 mg PO DAILY 10/31/19 07/16/24 History acyclovir 400 mg tablet See Rx Instructions .Route 05/26/24 07/16/24 Rx .COMPLEX #60 tabs bupropion HCl 150 mg tablet,12 hr 150 mg PO QDAY 07/16/24 07/16/24 History sustained-release (Wellbutrin SR) Is last menstrual period known: Yes Last Menstrual Period: 07/02/24 Post menopausal: No Patient : No : No [facility] Medical History delivery delivered Sterilization H/O shoulder dystocia in prior , currently 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 , currently Genital herpes OCD (obsessive compulsive disorder) Anxiety Surgical History H/O foot surgery H/O dilation and curettage Social History adopted: No household members: family housing: house number of children: 3 current occupational status: employed current occupation: [employer] pets and animals: Yes Smoking Status: Current every day smoker tobacco type: cigarettes second hand exposure: No alcohol intake: current details: social- not while substance use type: does not use seatbelt use: always do you feel safe at home: Yes additional social history: Spouse: Ashon- student ([employer]- 6, Ashon-11) History 7 Elective abortions Hx Para 4 Spontaneous abortions Hx # Term Pregnancies Ectopic pregnancies Hx # Pregnancies Multiple births # of living children 4 Past Pregnancies Del. Date Name GA/Weeks Outcome Route Bth Weight Gen Labor Lgth Anesthesia Del Locatn Provider FOB 07/10/14 Mar 39 live - full term 9lbs 6oz Female 12 hours epidural [facility] 03/17/16 Ashley 39 live - full term 8lbs 6oz Female 8-9 hours epidural [facility] 09/03/17 Chastity 39 live - full term 8lbs 6oz Male 8 hours epidural [facility] Dr Rashaun Harvey 05/12/21 Marium 39 live - full term Male spinal [facility] Aditya fraire. Carl Delivery Date: 07/10/14 Last Updated by: Lisa Gallagher moderate shoulder dystocia Delivery Date: 03/17/16 Last Updated by: Lisa Gallagher IoL Delivery Date: 09/03/17 Last Updated by: Lisa Gallagher mild shoulder dystocia Delivery Date: 05/12/21 Last Updated by: Vero Panchal Primary csection due to hx of shoulder dystocia x3 HPI Encounter for routine gynecological examination Details: PENNIE KOENIG is a 29 year old who presents for annual exam. States using boric acid twice a week. Feels she still gets BV but not every month. Happens after intercourse. Same partner. Denies STD concerns Last PAP: 2021 History of abnormal PAP: 2020 ASCUS, neg HPV Last mammogram: age 40 Other preventative health care screenings: [facility] Female Reproductive History Last Menstrual Period: 07/02/24 ROS Const Constitutional: Denies fatigue, weight gain or weight loss Cardio Card: Denies chest pain Resp Resp: Denies cough or dyspnea on exertion GI GI: Denies abdominal pain, bloating, change in stool character, constipation or vomiting : Reports as per HPI; Denies difficulty voiding, pelvic pain, urinary frequency, urinary incontinence, urinary urgency, vaginal discharge or vaginal pruritus Exam Const General: cooperative, healthy appearing, no acute distress and well developed Orientation: alert, oriented to person and oriented to place [facility] Head: normal to inspection Neck Neck: normal visual inspection Thyroid: thyroid normal Lymphatic: no lymphadenopathy noted Chest Breast inspection: normal inspection of the breasts and normal inspection of the axillae Breast palpation: normal palpation of the breasts, normal palpation of the axillae and no axillary lymphadenopathy Resp Effort Inspection: normal respiratory effort GI Palpation: soft, no masses and nontender Rectal Exam: deferred External (more content not included)... Normal [facility] CORTISOL SERUMon 06-24-2024 CORTISOL 14.00 ug/dL Normal 3.44-22.45 [facility] Comment on above: Result Comment: Adul t (AM) 5.27 - 22.45 ug/dL Adult (PM) 3.44 - 16.76 ug/dL Performed By: #### L 400.0001, M100.678 #### [facility] [address] [place], [address] Vitamin B12on 06-24-2024 Cobalamin (Vitamin B12) [Mass/Vol] 628 pg/mL Normal 211-911 [facility] Comment on above: Performed By: #### L 100.0100, L503.6150, L500.4050, L501.9520, L506.1000, L506.0400, L503.0105, L509.6000, L503.6550 #### [facility] [address] [place], [address] Vitamin D,25 Hydroxyon 06-24 Vitamin D 25-OH 65.0 ng/mL Normal [facility] Comment on above: Result Comment: Andriea min D 25(OH) Status Range Deficiency <20 ng/mL (50nmol/L) Insufficiency 20 - 30 ng/mL (50 - 75 nmol/L) Sufficiency 30 - 100 ng/mL (75 - 250 nmol/L) Toxicity >100 ng/mL (>250 nmol/L) Performed By: #### L 400.0001, M100.678 #### [facility] [address] [place], [address] CBC W/Diff, Automatedon 09-0 Absolute Lymph 1.56 X10 3/uL Normal 0.83-4.51 [facility] Comment on above: Performed By: #### L 100.0100, L503.6150, L500.4050, L501.9520, L506.1000, L506.0400, L503.0105, L509.6000, L503.6550 #### [facility] [address] [place], [address] Absolute Neut 2.8 X10 3/uL Normal 2.0-7.7 [facility] Comment on above: Performed By: #### L 100.0100, L503.6150, L500.4050, L501.9520, L506.1000, L506.0400, L503.0105, L509.6000, L503.6550 #### [facility] [address] [place], [address] Basophils/100 WBC (Bld) 0.2 % Normal 0-1 [facility] Comment on above: Performed By: #### L 100.0100, L503.6150, L500.4050, L501.9520, L506.1000, L506.0400, L503.0105, L509.6000, L503.6550 #### [facility] [address] [place], [address] Eosinophils/100 WBC (Bld) 0.6 % Normal 0-5 [facility] Comment on above: Performed By: #### L 100.0100, L503.6150, L500.4050, L501.9520, L506.1000, L506.0400, L503.0105, L509.6000, L503.6550 #### [facility] [address] [place], [address] Erythrocyte distribution width (RBC) [Ratio] 11.9 % Normal 11.6-14.6 [facility] Comment on above: Performed By: #### L 100.0100, L503.6150, L500.4050, L501.9520, L506.1000, L506.0400, L503.0105, L509.6000, L503.6550 #### [facility] [address] [place], [address] Hematocrit (Bld) [Volume fraction] 37.7 % Normal 37-47 [facility] Comment on above: Performed By: #### L 100.0100, L503.6150, L500.4050, L501.9520, L506.1000, L506.0400, L503.0105, L509.6000, L503.6550 #### [facility] [address] [facility] [place], [address] Hemoglobin (Bld) [Mass/Vol] 12.4 g/dL Normal 12.0-15.0 [facility] Comment on above: Performed By: #### L 100.0100, L503.6150, L500.4050, L501.9520, L506.1000, L506.0400, L503.0105, L509.6000, L503.6550 #### [facility] [address] [facility] [place], [address] IG% 0.200 Normal 0.0-0.9 [facility] Comment on above: Result Comment: IG% - Immature Granulocytes (promyelocytes, myelocytes and metamyelocytes) > 1% indicates that a LEFT SHIFT is Present. Performed By: #### L 100.0100, L503.6150, L500.4050, L501.9520, L506.1000, L506.0400, L503.0105, L509.6000, L503.6550 #### [facility] [address] [facility] [place], [address] Lymphocytes/100 WBC (Bld) 32.7 % Normal 19-41 [facility] Comment on above: Performed By: #### L 100.0100, L503.6150, L500.4050, L501.9520, L506.1000, L506.0400, L503.0105, L509.6000, L503.6550 #### [facility] [address] [facility] [place], [address] MCH (RBC) [Entitic mass] 29.6 pg Normal 27.0-32.0 [facility] Comment on above: Performed By: #### L 100.0100, L503.6150, L500.4050, L501.9520, L506.1000, L506.0400, L503.0105, L509.6000, L503.6550 #### [facility] [address] [place], [address] MCHC (RBC) [Mass/Vol] 32.9 g/dL Normal 32-36 [facility] Comment on above: Performed By: #### L 100.0100, L503.6150, L500.4050, L501.9520, L506.1000, L506.0400, L503.0105, L509.6000, L503.6550 #### [facility] [address] [place], [address] MCV (RBC) [Entitic vol] 90.0 fL Normal 81-99 [facility] Comment on above: Performed By: #### L 100.0100, L503.6150, L500.4050, L501.9520, L506.1000, L506.0400, L503.0105, L509.6000, L503.6550 #### [facility] [address] [place], [address] Monocytes/100 WBC (Bld) 8.6 % Normal 0-10 [facility] Comment on above: Performed By: #### L 100.0100, L503.6150, L500.4050, L501.9520, L506.1000, L506.0400, L503.0105, L509.6000, L503.6550 #### [facility] [address] [place], [address] Neutrophils/100 WBC (Bld) 57.7 % Normal 47-70 [facility] Comment on above: Performed By: #### L 100.0100, L503.6150, L500.4050, L501.9520, L506.1000, L506.0400, L503.0105, L509.6000, L503.6550 #### [facility] [address] [place], [address] Nucleated RBC (Bld) [#/Vol] 0 10*3/uL Normal 0-5 [facility] Comment on above: Performed By: #### L 100.0100, L503.6150, L500.4050, L501.9520, L506.1000, L506.0400, L503.0105, L509.6000, L503.6550 #### [facility] [address] [place], [address] Platelet mean volume (Bld) [Entitic vol] 10.2 fL Normal 6.2-12.0 [facility] Comment on above: Performed By: #### L 100.0100, L503.6150, L500.4050, L501.9520, L506.1000, L506.0400, L503.0105, L509.6000, L503.6550 #### [facility] [address] [place], [address] Platelets (Bld) [#/Vol] 362 10*3/uL Normal 150-450 [facility] Comment on above: Performed By: #### L 100.0100, L503.6150, L500.4050, L501.9520, L506.1000, L506.0400, L503.0105, L509.6000, L503.6550 #### [facility] [address] [facility] [place], [address] RBC (Bld) [#/Vol] 4.19 10*6/uL Low 4.2-5.4 [facility] Comment on above: Performed By: #### L 100.0100, L503.6150, L500.4050, L501.9520, L506.1000, L506.0400, L503.0105, L509.6000, L503.6550 #### [facility] Laboratory [address] [place], [address] RDW SD 38.7 fl Normal 35.1-43.9 [facility] Comment on above: Performed By: #### L 100.0100, L503.6150, L500.4050, L501.9520, L506.1000, L506.0400, L503.0105, L509.6000, L503.6550 #### [facility] [address] [place], [place], [id number] (571) WBC (Bld) [#/Vol] 4.8 10*3/uL Normal 4.4-11.0 [facility] Comment on above: Performed By: #### L 100.0100, L503.6150, L500.4050, L501.9520, L506.1000, L506.0400, L503.0105, L509.6000, L503.6550 #### [facility] [address] [place], [place], [id number] Comprehensive Metabolic Prof [facility] 06-23-2024 Albumin [Mass/Vol] 3.9 g/dL Normal 3.2-5.0 [facility] Comment on above: Performed By: #### L 100.0100, L503.6150, L500.4050, L501.9520, L506.1000, L506.0400, L503.0105, L509.6000, L503.6550 #### [facility] [address] [place], [place], [id number] Albumin/Globulin [Mass ratio] 1.0 {ratio} Normal 0.9-2.4 [facility] Comment on above: Performed By: #### L 100.0100, L503.6150, L500.4050, L501.9520, L506.1000, L506.0400, L503.0105, L509.6000, L503.6550 #### [facility] [address] [place], [place], [id number] ALK P 81 U/L Normal 45-117 [facility] Comment on above: Performed By: #### L 100.0100, L503.6150, L500.4050, L501.9520, L506.1000, L506.0400, L503.0105, L509.6000, L503.6550 #### [facility] [address] [place], [address] ALT [Catalytic activity/Vol] 22 U/L Normal 13-56 [facility] Comment on above: Performed By: #### L 100.0100, L503.6150, L500.4050, L501.9520, L506.1000, L506.0400, L503.0105, L509.6000, L503.6550 #### [facility] [address] [place], [address] AST [Catalytic activity/Vol] 15 U/L Normal 15-37 [facility] Comment on above: Performed By: #### L 100.0100, L503.6150, L500.4050, L501.9520, L506.1000, L506.0400, L503.0105, L509.6000, L503.6550 #### [facility] [address] [place], [address] Bilirubin [Mass/Vol] 0.50 mg/dL Normal 0.20-1.00 [facility] Comment on above: Result Comment: For patients on eltrombopag therapy, use of Dimension [place] TBIL is not recommended. Performed By: #### L 100.0100, L503.6150, L500.4050, L501.9520, L506.1000, L506.0400, L503.0105, L509.6000, L503.6550 #### [facility] [address] [place], [address] BUN/CRE 14.2 RATIO Normal 10-20 [facility] Comment on above: Performed By: #### L 100.0100, L503.6150, L500.4050, L501.9520, L506.1000, L506.0400, L503.0105, L509.6000, L503.6550 #### [facility] [address] [place], [address] CA,Total 9.1 mg/dL Normal 8.5-10.1 [facility] Comment on above: Performed By: #### L 100.0100, L503.6150, L500.4050, L501.9520, L506.1000, L506.0400, L503.0105, L509.6000, L503.6550 #### [facility] [address] [place], [address] Chloride [Moles/Vol] 103 mmol/L Normal 98-107 [facility] Comment on above: Performed By: #### L 100.0100, L503.6150, L500.4050, L501.9520, L506.1000, L506.0400, L503.0105, L509.6000, L503.6550 #### [facility] [address] [place], [address] CO2 [Moles/Vol] 25.0 mmol/L Normal 21.0-32.0 [facility] Comment on above: Performed By: #### L 100.0100, L503.6150, L500.4050, L501.9520, L506.1000, L506.0400, L503.0105, L509.6000, L503.6550 #### [facility] [address] [place], [address] Creatinine [Mass/Vol] 0.85 mg/dL Normal 0.55-1.02 [facility] Comment on above: Result Comment: The validity of the calculated GFR GFRAA in patients over 70 years has not been determined. Clinical correlation is essential. Performed By: #### L 100.0100, L503.6150, L500.4050, L501.9520, L506.1000, L506.0400, L503.0105, L509.6000, L503.6550 #### [facility] [address] [place], [address] EST GFR - AA 102 mL/min Normal >60 [facility] Comment on above: Result Comment: Afri can Nauruan GFR Calc Performed By: #### L 100.0100, L503.6150, L500.4050, L501.9520, L506.1000, L506.0400, L503.0105, L509.6000, L503.6550 #### [facility] [address] [place], [address] GAP 8 Normal 5-15 [facility] Comment on above: Performed By: #### L 100.0100, L503.6150, L500.4050, L501.9520, L506.1000, L506.0400, L503.0105, L509.6000, L503.6550 #### [facility] [address] [place], [address] GFR/1.73 sq M.predicted among non-blacks MDRD (S/P/Bld) [Vol rate/Area] 84 mL/min/{1.73_m2} Normal >60 [facility] Comment on above: Result Comment: Non- GFR Calc Performed By: #### L 100.0100, L503.6150, L500.4050, L501.9520, L506.1000, L506.0400, L503.0105, L509.6000, L503.6550 #### [facility] [address] [place], [place], [phone] (535) Globulin (S) [Mass/Vol] 4.1 g/dL Normal 2.2-4.2 [facility] Comment on above: Performed By: #### L 100.0100, L503.6150, L500.4050, L501.9520, L506.1000, L506.0400, L503.0105, L509.6000, L503.6550 #### [facility] [address] [place], [address] Glucose [Mass/Vol] 77 mg/dL Normal 74-106 [facility] Comment on above: Performed By: #### L 100.0100, L503.6150, L500.4050, L501.9520, L506.1000, L506.0400, L503.0105, L509.6000, L503.6550 #### [facility] [address] [place], [address] Potassium [Moles/Vol] 3.8 mmol/L Normal 3.5-5.1 [facility] Comment on above: Performed By: #### L 100.0100, L503.6150, L500.4050, L501.9520, L506.1000, L506.0400, L503.0105, L509.6000, L503.6550 #### [facility] [address] [place], [address] Sodium [Moles/Vol] 136 mmol/L Normal 136-145 [facility] Comment on above: Performed By: #### L 100.0100, L503.6150, L500.4050, L501.9520, L506.1000, L506.0400, L503.0105, L509.6000, L503.6550 #### [facility] [address] [place], [address] T PROT 8.0 g/dL Normal 6.4-8.2 [facility] Comment on above: Performed By: #### L 100.0100, L503.6150, L500.4050, L501.9520, L506.1000, L506.0400, L503.0105, L509.6000, L503.6550 #### [facility] [address] [place], [address] Urea nitrogen [Mass/Vol] 12 mg/dL Normal 7-18 [facility] Comment on above: Performed By: #### L 100.0100, L503.6150, L500.4050, L501.9520, L506.1000, L506.0400, L503.0105, L509.6000, L503.6550 #### [facility] [address] [place], [place], [id number] Ferritinon 06-23-2024 Ferritin [Mass/Vol] 51 ng/mL Normal 8-252 [facility] Comment on above: Performed By: #### L 100.0100, L503.6150, L500.4050, L501.9520, L506.1000, L506.0400, L503.0105, L509.6000, L503.6550 #### [facility] [address] [place], [place], [id number] Ironon 06-23-2024 Iron [Mass/Vol] 90 ug/dL Normal 50-170 [facility] Comment on above: Performed By: #### L 100.0100, L503.6150, L500.4050, L501.9520, L506.1000, L506.0400, L503.0105, L509.6000, L503.6550 #### [facility] [address] [place], [place], [id number] T4 Free Directon 06-23-2024 T4 FREE DIRECT 1.05 ng/dL Normal 0.76-1.46 [facility] Comment on above: Performed By: #### L 100.0100, L503.6150, L500.4050, L501.9520, L506.1000, L506.0400, L503.0105, L509.6000, L503.6550 #### [facility] [address] [place], [place], [id number] Thyroid Stim Hormone (TSH)on 06-23-2024 TSH 0.497 uIU/mL Normal 0.358-3.740 [facility] Comment on above: Performed By: #### L 100.0100, L503.6150, L500.4050, L501.9520, L506.1000, L506.0400, L503.0105, L509.6000, L503.6550 #### [facility] [address] [place], [place], [address] .GFRon 06-10-2024 GFR Non- 85 ml/min/1.73sqm Normal [facility] ([place]) Comment on above: Result Comment: GFR Population mean for , Non- Americans Ages 20-29 = 116 mL/min/1.73 sq.m. Ages 30-39 = 107 mL/min/1.73 sq.m. Ages 40-49 = 99 mL/min/1.73 sq.m. Ages 50-59 = 93 mL/min/1.73 sq.m. Ages 60-69 = 85 mL/min/1.73 sq.m. Ages 70+ = 75 mL/min/1.73 sq.m. Chronic Kidney Disease: Less than 60 mL/min/1.73 square meters End Stage Renal Disease: Less than 15 mL/min/1.73 square meters Performed By: #### B MP, GFR #### [address] [address] GFR 103 ml/min/1.73sqm Normal [facility] ([place]) Comment on above: Result Comment: GFR Population mean for , Non- Americans Ages 20-29 = 116 mL/min/1.73 sq.m. Ages 30-39 = 107 mL/min/1.73 sq.m. Ages 40-49 = 99 mL/min/1.73 sq.m. Ages 50-59 = 93 mL/min/1.73 sq.m. Ages 60-69 = 85 mL/min/1.73 sq.m. Ages 70+ = 75 mL/min/1.73 sq.m. Chronic Kidney Disease: Less than 60 mL/min/1.73 square meters End Stage Renal Disease: Less than 15 mL/min/1.73 square meters Performed By: #### B MP, GFR #### [address] [address] .Urinalysis Microscopic (AO) on 06-10-2024 UA Bacteria Trace Abnormal [facility] ([place]) Comment on above: Performed By: #### B MP, GFR #### [address] [address] UA RBC 0-5 Abnormal None Seen [facility] ([place]) Comment on above: Performed By: #### B MP, GFR #### [address] [address] UA Squam Epithelial LOADED Abnormal None Seen [facility] ([place]) Comment on above: Performed By: #### B MP, GFR #### [address] [address] UA WBC 0-5 Abnormal None Seen [facility] ([place]) Comment on above: Performed By: #### B MP, GFR #### [address] [address] BMPon 06-10-2024 BUN/Creatinine Ratio 14 ratio Normal -27 [facility] ([place]) Comment on above: Performed By: #### B MP, GFR #### [address] [address] Calcium [Mass/Vol] 8.9 mg/dL Normal 8.4-10.2 [facility] ([place]) Comment on above: Performed By: #### B MP, GFR #### [address] [address] Chloride [Moles/Vol] 103 mmol/L Normal 98-107 [facility] ([place]) Comment on above: Performed By: #### B MP, GFR #### [address] [address] CO2 [Moles/Vol] 30 mmol/L High 22-29 [facility] ([place]) Comment on above: Performed By: #### B MP, GFR #### [address] [address] Creatinine [Mass/Vol] 0.80 mg/dL Normal 0.55-1.02 [facility] ([place]) Comment on above: Performed By: #### B MP, GFR #### [address] [address] Electrolyte Balance 5.0 mEq/L Normal 4.0-15.0 [facility] ([place]) Comment on above: Performed By: #### B MP, GFR #### [address] [address] Glucose [Mass/Vol] 112 mg/dL High 70-105 [facility] ([place]) Comment on above: Performed By: #### B MP, GFR #### [address] [address] Potassium [Moles/Vol] 4.0 mmol/L Normal 3.5-5.1 [facility] ([place]) Comment on above: Performed By: #### B MP, GFR #### [address] [address] Sodium [Moles/Vol] 138 mmol/L Normal 136-145 [facility] ([place]) Comment on above: Performed By: #### B MP, GFR #### [address] [address] Urea nitrogen [Mass/Vol] 11 mg/dL Normal 7-18 [facility] ([place]) Comment on above: Performed By: #### B MP, GFR #### [address] [address] [address] ABDOMEN/PELVIS W/O CONTRA STon 06-10-2024 CT ABDOMEN/PELVIS W/O CONTRAST ORIGINAL EXAMINATION: CT OF THE ABDOMEN AND PELVIS WITHOUT CONTRAST 06/10/2024 5:01 pm TECHNIQUE: CT of the abdomen and pelvis was performed without the administration of intravenous contrast. Multiplanar reformatted images are provided for review. Automated exposure control, iterative reconstruction, and/or weight based adjustment of the mA/kV was utilized to reduce the radiation dose to as low as reasonably achievable. COMPARISON: None. HISTORY: ORDERING SYSTEM PROVIDED HISTORY: Reason for Exam: BILATERAL flank pain FINDINGS: Lower Chest: Normal heart size. No focal consolidation or pleural effusion. Organs: The liver and biliary tract appears normal. The spleen appears normal. The pancreas appears normal. The adrenal glands appear normal. There are bilateral nonobstructive renal stones in the kidneys. There is also a 3 mm stone in the bladder at left UVJ with mild left hydroureter, probably reflecting impending or recent passage. GI/Bowel: There is no evidence of obstruction. The appendix is normal. Pelvis: Status post tubal ligation with 2 left-sided clips in expected location and 1 right-sided clip in expected location and 1 right-sided clip migrated to the anterosuperior aspect the uterus/pelvis. The pelvic organs appear normal. Peritoneum/Retroper itoneum: There is no intraperitoneal free air or ascites. The aorta and its major branches appear normal. No lymphadenopathy is identified. Bones/Soft Tissues: No focal bone or soft tissue abnormality is seen. IMPRESSION: 1. 3 mm stone in the bladder at left UVJ with mild left hydroureter, probably reflecting impending or recent passage. 2. Additional bilateral nonobstructive renal stones. 3. Status post tubal ligation with 2 left-sided clips in place and 1 right-sided clip in place but 1 right-sided clip migrated to the anterosuperior pelvis. Interpreted by: Cirilo Munoz Preliminary Report By: Cirilo Munoz Electronically signed By Cirilo Munoz Dictated Date: 06/10/2024 5:14:01 PM Prelim Date: 06/10/2024 5:19:03 PM Sign Date: 06/10/2024 5:19:03 PM Ordering Provider: PARKER MEJIA [facility] ([place]) LABORATORYOrdered By: SYSTEM SYSTEM on 06-10-2024 Calcium [Mass/Vol] 8.9 mg/dL Normal 8.4 - 10. 2 mg/dL AO ADM SS Chloride [Moles/Vol] 103 mmol/L Normal 98 - 10 7 mmol/L AO ADM SS CO2 [Moles/Vol] 30 mmol/L High 22 - 29 mmol/L AO ADM SS Creatinine [Mass/Vol] 0.80 mg/dL Normal 0.55 - 1.02 mg/dL AO ADM SS Electrolyte Balance 5.0 mEq/L Normal 4.0 - 15 .0 mEq/L AO ADM SS GFR/1.73 sq M.predicted among blacks MDRD (S/P/Bld) [Vol rate/Area] 103 ml/min/1.73sqm Invalid Interpretation Code AO Chemistry S Comment on above: Interpretive Data: GFR Population mean for , Non- Americans Ages 20-29 = 116 mL/min/1.73 sq.m. Ages 30-39 = 107 mL/min/1.73 sq.m. Ages 40-49 = 99 mL/min/1.73 sq.m. Ages 50-59 = 93 mL/min/1.73 sq.m. Ages 60-69 = 85 mL/min/1.73 sq.m. Ages 70+ = 75 mL/min/1.73 sq.m. Chronic Kidney Disease: Less than 60 mL/min/1.73 square meters End Stage Renal Disease: Less than 15 mL/min/1.73 square meters GFR/1.73 sq M.predicted among non-blacks MDRD (S/P/Bld) [Vol rate/Area] 85 ml/min/1.73sqm Invalid Interpretation Code AO Chemistry S Comment on above: Interpretive Data: GFR Population mean for , Non- Americans Ages 20-29 = 116 mL/min/1.73 sq.m. Ages 30-39 = 107 mL/min/1.73 sq.m. Ages 40-49 = 99 mL/min/1.73 sq.m. Ages 50-59 = 93 mL/min/1.73 sq.m. Ages 60-69 = 85 mL/min/1.73 sq.m. Ages 70+ = 75 mL/min/1.73 sq.m. Chronic Kidney Disease: Less than 60 mL/min/1.73 square meters End Stage Renal Disease: Less than 15 mL/min/1.73 square meters Glucose [Mass/Vol] 112 mg/dL High 70 - 105 mg/dL AO ADM SS Potassium [Moles/Vol] 4.0 mmol/L Normal 3.5 - 5.1 mmol/L AO ADM SS Sodium [Moles/Vol] 138 mmol/L Normal 136 - 145 mmol/L AO ADM SS Urea nitrogen [Mass/Vol] 11 mg/dL Normal 7 - 18 mg/d L AO ADM SS Urea nitrogen/Creatinine [Mass ratio] 14 ratio Normal 7 - 27 ratio AO ADM SS LABORATORYOrdered By: Tate Killian on 06-10-2024 Appearance (U) Cloudy *ABN* (06/10/24 4:12 PM) Invalid Interpretation Code Clear AO Auto Urine SS Bacteria LM.HPF (Urine sed) [#/Area] Trace /HPF Invalid Interpretation Code AO Auto Urine SS Bilirubin Ql (U) Negative (06/10/24 4:12 PM) Normal Negative AO Auto Urine SS Color (U) Yellow (06/10/24 4:12 PM) Normal AO Auto Urine SS Glucose Test strip (U) [Mass/Vol] Negative Normal Negative AO Auto Urine SS HCG ( test) Ql Negative (06/10/24 4:12 PM) Normal AO Manual Urine SS Hemoglobin Auto test strip (U) [Mass/Vol] Trace *ABN* (06/10/24 4:12 PM) Invalid Interpretation Code Negative AO Auto Urine SS Ketones Ql (U) Negative Normal Negative AO Auto Ur ine SS test (u) int Not detected Invalid Interpretation Code AO Manual Urine SS UA Leuk Est Negative (06/10/24 4:12 PM) Normal Negative AO Auto Urine SS UA Nitrite Negative (06/10/24 4:12 PM) Normal Negative AO Auto Urine SS UA pH 7.0 (06/10/24 4:12 PM) Normal 5.0 - 8.0 AO Auto Urine SS UA Protein Trace mg/dL Normal Negative AO Auto Urine SS UA RBC 0-5 /HPF Invalid Interpretation Code None Seen AO Auto Urine SS UA Spec Grav 1.020 (06/10/24 4:12 PM) Normal 1.015-1.025 AO Auto Urine SS UA Specimen Type Clean Catch (06/10/24 4:12 PM) Normal AO Auto Urine SS UA Squam Epithelial LOADED /HPF Invalid Interpretation Code None Seen AO Auto Urine SS UA Urobilinogen 0.2 E.U./dL Normal 0.2-1.0 AO Auto Urine SS WBC LM.HPF (Urine sed) [#/Area] 0-5 /HPF Invalid Interpretation Code None Seen AO Auto Urine SS PREGUon 06-10-2024 HCG ( test) Ql (U) Negative Normal [facility] ([place]) Comment on above: Performed By: #### B MP, GFR #### [place] [id number] test (u) int Not detected Invalid Interpretation Code [facility] ([place]) Comment on above: Performed By: #### B MP, GFR #### [address] [address] UAon 06-10-2024 Color (U) Yellow Normal [facility] ([place]) Comment on above: Performed By: #### B MP, GFR #### [address] [address] Glucose (U) [Mass/Vol] Negative Normal Negative [facility] ([place]) Comment on above: Performed By: #### B MP, GFR #### [address] [address] Ketones Ql (U) Negative Normal Negative [facility] ([place]) Comment on above: Performed By: #### B MP, GFR #### [address] [address] UA Appear Cloudy Abnormal Clear [facility] ([place]) Comment on above: Performed By: #### B MP, GFR #### [address] [address] UA Blood Trace Abnormal Negative [facility] ([place]) Comment on above: Performed By: #### Mirela MP, GFR #### [address] [address] UA Leuk Est Negative Normal Negative [facility] ([place]) Comment on above: Performed By: #### B MP, GFR #### [address] [address] UA Nitrite Negative Normal Negative [facility] ([place]) Comment on above: Performed By: #### B MP, GFR #### [address] [address] UA pH 7.0 Normal 5.0 - 8.0 [facility] ([place]) Comment on above: Performed By: #### B MP, GFR #### [address] [address] UA Protein Trace Normal Negative [facility] ([place]) Comment on above: Performed By: #### B MP, GFR #### [address] [address] UA Spec Grav 1.020 Normal 1.015-1.025 [facility] ([place]) Comment on above: Performed By: #### B MP, GFR #### [address] [address] UA Specimen Type Clean Catch Normal [facility] ([place]) Comment on above: Performed By: #### B MP, GFR #### [address] [address] UA Urobilinogen 0.2 E.U./dL Normal 0.2-1.0 [facility] ([place]) Comment on above: Performed By: #### B MP, GFR #### [place] [address] Urobilinogen (U) [Mass/Vol] Negative Normal Negative [facility] ([place]) Comment on above: Performed By: #### B MP, GFR #### [place] [address] .Auto Diffon 02-15-2024 Basophil, Absolute 0.0 10 3/mcL Normal 0.0-0.2 [facility] ([place]) Comment on above: Performed By: #### G MARK URBAN ADIFF, MDW, WILLOW, CBC #### [address] [address] Basophils/100 WBC (Bld) 0.3 % Normal 0.0-2.5 A [facility] ([place]) Comment on above: Performed By: #### MARK LUIS ADIFF, MDW, BMP, CBC #### [address] [address] Eosinophil, Absolute 0.0 10 3/mcL Normal 0.0-0.4 [facility] ([place]) Comment on above: Performed By: #### MARK LUIS ADIFF, MDW, BMP, CBC #### [address] [address] Eosinophils/100 WBC (Bld) 0.1 % Normal 0.0-7.0 [facility] ([place]) Comment on above: Performed By: #### G FR, ANEU, MXAIIFF, MDW, BMP, CBC #### [address] [address] Lymphocyte, Absolute 1.1 10 3/mcL Normal 0.8-3.9 [facility] ([place]) Comment on above: Performed By: #### G FR, ANEU, ADIFF, MDW, BMP, CBC #### [address] [address] Lymphocytes/100 WBC (Bld) 6.4 % Low 10.0-50.0 [facility] ([place]) Comment on above: Performed By: #### G FR, ANEU, DEBBIE, MDW, BMP, CBC #### [address] [address] Monocyte, Absolute 1.7 10 3/mcL High 0.2-1.0 [facility] ([place]) Comment on above: Performed By: #### G FR, ANEU, DEBBIE, MDW, BMP, CBC #### [address] [address] Monocytes/100 WBC (Bld) 10.5 % Normal 1.7-13.0 A [facility] ([place]) Comment on above: Performed By: #### G FR, ANEU, DEBBIE, MDW, BMP, CBC #### [address] [address] Neutrophils/100 WBC (Bld) 82.7 % High 37.0-80.0 [facility] ([place]) Comment on above: Performed By: #### G FR, ANEU, MAXIIFF, MDW, BMP, CBC #### [address] [address] .GFRon 02-15-2024 GFR 79 ml/min/1.73sqm Normal [facility] ([place]) Comment on above: Result Comment: GFR Population mean for , Non- Americans Ages 20-29 = 116 mL/min/1.73 sq.m. Ages 30-39 = 107 mL/min/1.73 sq.m. Ages 40-49 = 99 mL/min/1.73 sq.m. Ages 50-59 = 93 mL/min/1.73 sq.m. Ages 60-69 = 85 mL/min/1.73 sq.m. Ages 70+ = 75 mL/min/1.73 sq.m. Chronic Kidney Disease: Less than 60 mL/min/1.73 square meters End Stage Renal Disease: Less than 15 mL/min/1.73 square meters Performed By: #### B MP, GFR #### [address] [address] GFR Non- 66 ml/min/1.73sqm Normal [facility] ([place]) Comment on above: Result Comment: GFR Population mean for , Non- Americans Ages 20-29 = 116 mL/min/1.73 sq.m. Ages 30-39 = 107 mL/min/1.73 sq.m. Ages 40-49 = 99 mL/min/1.73 sq.m. Ages 50-59 = 93 mL/min/1.73 sq.m. Ages 60-69 = 85 mL/min/1.73 sq.m. Ages 70+ = 75 mL/min/1.73 sq.m. Chronic Kidney Disease: Less than 60 mL/min/1.73 square meters End Stage Renal Disease: Less than 15 mL/min/1.73 square meters Performed By: #### B MP, GFR #### [address] [address] .MDWon 02-15-2024 Monocyte Distribution Width 22.69 High 0.00-20.00 [facility] ([place]) Comment on above: Result Comment: For adults in ED, MDW>20.0 may be associated with a higher risk of sepsis during the first 12hrs of hospital admission Performed By: #### G MARK URBAN ADIFF, MDW, BMP, CBC #### [address] [address] .NEUABSon 02-15-2024 Neutrophil, Absolute 13.6 10 3/mcL High 2.9-6.2 A [facility] ([place]) Comment on above: Performed By: #### G MARK URBAN ADIFF, MDW, BMP, CBC #### [address] [address] .Urinalysis Microscopic (AO) on 02-15-2024 UA Bacteria 1+ /hpf Abnormal [facility] ([place]) Comment on above: Performed By: #### U AMICAO, UA, PREGU #### [address] [address] UA RBC 0-5 Abnormal None Seen [facility] ([place]) Comment on above: Performed By: #### U AMICAO, UA, PREGU #### [address] [address] UA Squam Epithelial 5-10 Abnormal None Seen [facility] ([place]) Comment on above: Performed By: #### U AMICAO, UA, PREGU #### [address] [address] UA WBC 15-25 Abnormal None Seen [facility] ([place]) Comment on above: Performed By: #### U AMICAO, UA, PREGU #### [address] [address] BMPon 02-15-2024 BUN/Creatinine Ratio 9 ratio Normal 7-27 [facility] ([place]) Comment on above: Performed By: #### B MP, GFR #### [address] [address] Calcium [Mass/Vol] 8.4 mg/dL Normal 8.4-10.2 [facility] ([place]) Comment on above: Performed By: #### B MP, GFR #### [address] [address] Chloride [Moles/Vol] 102 mmol/L Normal 98-107 [facility]) Comment on above: Performed By: #### B MP, GFR #### [address] [address] CO2 [Moles/Vol] 28 mmol/L Normal 22-29 [facility] ([place]) Comment on above: Performed By: #### B MP, GFR #### [address] [address] Creatinine [Mass/Vol] 1.00 mg/dL Normal 0.55-1.02 [facility] ([place]) Comment on above: Performed By: #### B MP, GFR #### [address] [address] Electrolyte Balance 9.0 mEq/L Normal 4.0-15.0 [facility] ([place]) Comment on above: Performed By: #### B MP, GFR #### [address] [address] Glucose [Mass/Vol] 107 mg/dL High 70-105 [facility] ([place]) Comment on above: Performed By: #### B MP, GFR #### [address] [address] Potassium [Moles/Vol] 4.2 mmol/L Normal 3.5-5.1 [facility] ([place]) Comment on above: Performed By: #### B MP, GFR #### [address] [address] Sodium [Moles/Vol] 139 mmol/L Normal 136-145 [facility] [facility] ([place]) Comment on above: Performed By: #### B MP, GFR #### [address] [address] Urea nitrogen [Mass/Vol] 9 mg/dL Normal 7-18 [facility] ([place]) Comment on above: Performed By: #### B MP, GFR #### [address] [address] CBCon 02-15-2024 Erythrocyte distribution width (RBC) [Ratio] 12.6 % Normal 11.5-14.5 [facility] ([place]) Comment on above: Performed By: #### G , MARK, DEBBIE, W, BMP, CBC #### [address] [address] Hematocrit (Bld) [Volume fraction] 34.7 % Low 37.0-47.0 [facility] ([place]) Comment on above: Performed By: #### G FR, ANEU, ADDAVID, MDW, BMP, CBC #### [address] [address] Hgb 12.0 G/dL Normal 12.0-16.0 [facility] ([place]) Comment on above: Performed By: #### G FR, ANEU, ADIFF, MDW, BMP, CBC #### [place] [id number] MCH (RBC) [Entitic mass] 31.0 pg Normal 27.0-31.2 [facility] ([place]) Comment on above: Performed By: #### G FR, MARK, DEBBIE, MDW, BMP, CBC #### [place] [address] MCHC 34.7 G/dL Normal 33.0-37.0 [facility] ([place]) Comment on above: Performed By: #### G , MARK, DEBBIE, MDW, BMP, CBC #### [place] [address] MCV (RBC) [Entitic vol] 89.5 fL Normal 80.0-94.0 [facility] ([place]) Comment on above: Performed By: #### G FR, ANEU, ADDAVID, MDW, BMP, CBC #### [address] [address] Platelet 237 10 3/mcL Normal 130-400 [facility] ([place]) Comment on above: Performed By: #### G FR, ANEU, ADDAVID, MDW, BMP, CBC #### [address] [address] Platelet mean volume (Bld) [Entitic vol] 7.8 fL Normal 7.4-10.4 [facility] ([place]) Comment on above: Performed By: #### G FR, ANEU, ADIFF, MDW, BMP, CBC #### [address] [address] RBC 3.88 10 6/mcL Low 4.20-5.40 [facility] ([place]) Comment on above: Performed By: #### G , DEBBIE FLORES MDW, BMP, CBC #### [facility] [address] [place], [place] [address] WBC 16.5 10 3/mcL High 4.6-10.8 [facility] ([place]) Comment on above: Performed By: #### G , DEBBIE FLORES, NEREIDA, BMP, CBC #### [facility] [address] [place], [place] [address] LABORATORYOrdered By: Lashawn win on 02-15-2024 Appearance (U) Cloudy *ABN* (02/15/24 5:23 PM) Invalid Interpretation Code Clear AO Auto Urine SS Bacteria LM.HPF (Urine sed) [#/Area] 1 /[HPF] Invalid Interpretation Code AO Auto Urine SS Bilirubin Ql (U) Negative (02/15/24 5:23 PM) Normal Negative AO Auto Urine SS Color (U) Yellow (02/15/24 5:23 PM) Normal AO Auto Urine SS Glucose Test strip (U) [Mass/Vol] Negative Normal Negative AO Auto Urine SS HCG ( test) Ql Negative (02/15/24 5:23 PM) Normal AO Manual Urine SS Hemoglobin Auto test strip (U) [Mass/Vol] Trace *ABN* (02/15/24 5:23 PM) Invalid Interpretation Code Negative AO Auto Urine SS Ketones Ql (U) Negative Normal Negative AO Auto Ur ine SS test (u) int Not detected Invalid Interpretation Code AO Manual Urine SS UA Leuk Est Moderate *ABN* (02/15/24 5:23 PM) Invalid Interpretation Code Negative AO Auto Urine SS UA Nitrite Negative (02/15/24 5:23 PM) Normal Negative AO Auto Urine SS UA pH 7.5 (02/15/24 5:23 PM) Normal 5.0 - 8.0 AO Auto Urine SS UA Protein 100 mg/dL Invalid Interpretation Code Negative AO Auto Urine SS UA RBC 0-5 /HPF Invalid Interpretation Code None Seen AO Auto Urine SS UA Spec Grav 1.020 (02/15/24 5:23 PM) Normal 1.015-1.025 AO Auto Urine SS UA Specimen Type Clean Catch (02/15/24 5:23 PM) Normal AO Auto Urine SS UA Squam Epithelial 5-10 /HPF Invalid Interpretation Code None Seen AO Auto Urine SS UA Urobilinogen 0.2 E.U./dL Normal 0.2-1.0 AO Auto Urine SS WBC LM.HPF (Urine sed) [#/Area] 15-25 /HPF Invalid Interpretation Code None Seen AO Auto Urine SS LABORATORYOrdered By: SYSTEM SYSTEM on 02-15-2024 Basophil, Absolute 0.0 103/mcL Normal 0.0 - 0.2 10^3/mcL AO Workflow SS Basophils/100 WBC (Bld) 0.3 % Normal 0.0 - 2.5 % AO Workflow SS Calcium [Mass/Vol] 8.4 mg/dL Normal 8.4 - 10. 2 mg/dL AO ADM SS Chloride [Moles/Vol] 102 mmol/L Normal 98 - 10 7 mmol/L AO ADM SS CO2 [Moles/Vol] 28 mmol/L Normal 22 - 29 mmol/L AO ADM SS Creatinine [Mass/Vol] 1.00 mg/dL Normal 0.55 - 1.02 mg/dL AO ADM SS Electrolyte Balance 9.0 mEq/L Normal 4.0 - 15 .0 mEq/L AO ADM SS Eosinophil, Absolute 0.0 103/mcL Normal 0.0 - 0 .4 10^3/mcL AO Workflow SS Eosinophils/100 WBC (Bld) 0.1 % Normal 0.0 - 7.0 % AO Workflow SS Erythrocyte distribution width (RBC) [Ratio] 12.6 % Normal 11.5 - 14.5 % AO Workflow SS GFR/1.73 sq M.predicted among blacks MDRD (S/P/Bld) [Vol rate/Area] 79 ml/min/1.73sqm Invalid Interpretation Code AO Chemistry S Comment on above: Interpretive Data: GFR Population mean for , Non- Americans Ages 20-29 = 116 mL/min/1.73 sq.m. Ages 30-39 = 107 mL/min/1.73 sq.m. Ages 40-49 = 99 mL/min/1.73 sq.m. Ages 50-59 = 93 mL/min/1.73 sq.m. Ages 60-69 = 85 mL/min/1.73 sq.m. Ages 70+ = 75 mL/min/1.73 sq.m. Chronic Kidney Disease: Less than 60 mL/min/1.73 square meters End Stage Renal Disease: Less than 15 mL/min/1.73 square meters GFR/1.73 sq M.predicted among non-blacks MDRD (S/P/Bld) [Vol rate/Area] 66 ml/min/1.73sqm Invalid Interpretation Code AO Chemistry S Comment on above: Interpretive Data: GFR Population mean for , Non- Americans Ages 20-29 = 116 mL/min/1.73 sq.m. Ages 30-39 = 107 mL/min/1.73 sq.m. Ages 40-49 = 99 mL/min/1.73 sq.m. Ages 50-59 = 93 mL/min/1.73 sq.m. Ages 60-69 = 85 mL/min/1.73 sq.m. Ages 70+ = 75 mL/min/1.73 sq.m. Chronic Kidney Disease: Less than 60 mL/min/1.73 square meters End Stage Renal Disease: Less than 15 mL/min/1.73 square meters Glucose [Mass/Vol] 107 mg/dL High 70 - 105 mg/dL AO ADM SS Hematocrit (Bld) [Volume fraction] 34.7 % Low 37.0 - 47.0 % AO Workflow SS Hemoglobin (Bld) [Mass/Vol] 12.0 G/dL Normal 12.0 - 16.0 G/dL AO Workflow SS Lymphocyte, Absolute 1.1 103/mcL Normal 0.8 - 3 .9 10^3/mcL AO Workflow SS Lymphocytes/100 WBC (Bld) 6.4 % Low 10.0 - 50.0 % AO Workflow SS MCH (RBC) [Entitic mass] 31.0 pg Normal 27. 0 - 31.2 pg AO Workflow SS MCHC 34.7 G/dL Normal 33.0 - 37.0 G/dL AO Workflow SS MCV (RBC) [Entitic vol] 89.5 fL Normal 80.0 - 94.0 fL AO Workflow SS Monocyte distribution width Auto (Bld) [Entitic vol] 22.69 1 High 0.00 - 20.00 AO Workflow SS Comment on above: Result Comment: For adults in ED, MDW>20.0 may be associated with a higher risk of sepsis during the first 12hrs of hospital admission Monocyte, Absolute 1.7 103/mcL High 0.2 - 1.0 10^3/mcL AO Workflow SS Monocytes/100 WBC (Bld) 10.5 % Normal 1.7 - 13.0 % AO Workflow SS Neutrophil, Absolute 13.6 103/mcL High 2.9 - 6 .2 10^3/mcL AO Workflow SS Neutrophils/100 WBC (Bld) 82.7 % High 37.0 - 80.0 % AO Workflow SS Platelet mean volume (Bld) [Entitic vol] 7.8 fL Normal 7.4 - 10.4 fL AO Workflow SS Platelets (Bld) [#/Vol] 237 103/mcL Normal 130 - 400 10^3/mcL AO Workflow SS Potassium [Moles/Vol] 4.2 mmol/L Normal 3.5 - 5.1 mmol/L AO ADM SS RBC (Bld) [#/Vol] 3.88 106/mcL Low 4.20 - 5.4 0 10^6/mcL AO Workflow SS Sodium [Moles/Vol] 139 mmol/L Normal 136 - 145 mmol/L AO ADM SS Urea nitrogen [Mass/Vol] 9 mg/dL Normal 7 - 18 mg/d L AO ADM SS Urea nitrogen/Creatinine [Mass ratio] 9 ratio Normal 7 - 27 ratio AO ADM SS WBC (Bld) [#/Vol] 16.5 103/mcL High 4.6 - 10.8 10^3/mcL AO Workflow SS PREGUon 02-15-2024 HCG ( test) Ql (U) Negative Normal [facility] ([place]) Comment on above: Performed By: #### U AMICAO UA, PREGU #### [address] [address] test (u) int Not detected Invalid Interpretation Code [facility] ([place]) Comment on above: Performed By: #### U AMICAO, UA, PREGU #### [place] [address] [place], [place] [address] UAon 02-15-2024 Color (U) Yellow Normal [facility] ([place]) Comment on above: Performed By: #### U AMICAO, UA, PREGU #### [address] [address] Glucose (U) [Mass/Vol] Negative Normal Negative [facility] ([place]) Comment on above: Performed By: #### U AMICAO UA, PREGU #### [address] [address] Ketones Ql (U) Negative Normal Negative [facility] ([place]) Comment on above: Performed By: #### U AMICAO, UA, PREGU #### [address] [address] UA Appear Cloudy Abnormal Clear [facility] ([place]) Comment on above: Performed By: #### U AMICAO, UA, PREGU #### [address] [address] UA Blood Trace Abnormal Negative [facility] ([place]) Comment on above: Performed By: #### U AMICAO, UA, PREGU #### [address] [address] UA Leuk Est Moderate Abnormal Negative [facility] ([place]) Comment on above: Performed By: #### U AMICAO, UA, PREGU #### [place] [address] UA Nitrite Negative Normal Negative [facility] ([place]) Comment on above: Performed By: #### U AMICAO, UA, PREGU #### [place] [id number] UA pH 7.5 Normal 5.0 - 8.0 [facility] ([place]) Comment on above: Performed By: #### U AMICAO, UA, PREGU #### [address] [place] [address] UA Protein 100 mg/dL Abnormal Negative [facility] ([place]) Comment on above: Performed By: #### U AMICAO, UA, PREGU #### [place] [address] UA Spec Grav 1.020 Normal 1.015-1.025 [facility] ([place]) Comment on above: Performed By: #### U AMICAO, UA, PREGU #### [address] [address] UA Specimen Type Clean Catch Normal [facility] ([place]) Comment on above: Performed By: #### U AMICAO, UA, PREGU #### [facility] [address] [place], [place] [address] UA Urobilinogen 0.2 E.U./dL Normal 0.2-1.0 [facility] ([place]) Comment on above: Performed By: #### U AMICAO, UA, PREGU #### [facility] [address] [place], [place] [address] Urobilinogen (U) [Mass/Vol] Negative Normal Negative [facility] ([place]) Comment on above: Performed By: #### U AMICAO, UA, PREGU #### [place] [address] [place], [place] [address] Chlamydia trachomatis rRNA d etection by probe and target amplification methodOrdered By: Josi Nunn on 01-03-2024 C. trachomatis rRNA JANNIE+probe Ql (Unsp spec) Negative Negative [facility] Gram stain for investigation of transfusion reactionOrdered By: Josi Nunn on 01-03-2024 Microscopic observation Gram stain Nom (Unsp spec) [facility] Laboratory - Chemistry and C hemistry - challengeon 01-03-2024 Bilirubin Ql (U) Negative [facility] Glucose Ql (U) Negative [facility] Ketones Ql (U) Negative [facility] pH (U) 5.0 [pH] [facility] Specific gravity (U) [Rel density] 1.015 [facility] Urobilinogen (U) [Mass/Vol] Negative [facility] Laboratory - Hematology and Cell countson 01-03-2024 Hemoglobin Ql (U) Hemolyzed [facility] - Microbiology an d Antimicrobial susceptibilityOrdered By: Josi Nunn on 01-03-2024 N. gonorrhoeae DNA JANNIE+probe Ql (Unsp spec) Negative Negative [facility] Comment on above: Performed at: =[facility] [address] [id number] Director: Vianey Giles MD, Phone: [phone] Laboratory - Specimen inform ationon 01-03-2024 Clarity (U) Cloudy [facility] Color (U) YELLOW [facility] Laboratory - Urinalysison Nitrite Ql (U) Negative [facility] Protein Ql (U) Negative [facility] No Panel InformationOrdered By: Josi Nunn on 01-03-2024 Genital Culture Presumptive C albicans [facility] Genital Culture G. vaginalis (Presumptive) [facility] No Panel Informationon 01-02 POC Bacterial Vaginitis (Rapid) Positive [facility] POC Trichomonas (Rapid) Negative [facility] Urine Leukocytes Positive [facility] Urine Non-Hemolyzed Blood Large [facility] UA DIP, URINE (POC)on 2023 BILIRUBIN UA (POCT) Negative Negative [facility] CLARITY UA (POCT) Cloudy [facility] COLOR UA (POCT) Yellow [facility] GLUCOSE UA (POCT) Negative Negative mg/dL [facility] Hemoglobin Ql (U) Trace-intact Abnormal Negative [facility] KETONE UA (POCT) Negative Negative mg/dL [facility] LEUKOCYTES UA (POCT) Large Abnormal Negative [facility] NITRITE UA (POCT) Negative Negative [facility] PH UA (POCT) 7.0 4.5 - 8.0 [facility] Protein Ql (U) Negative Negative mg/dL [facility] SPECIFIC GRAVITY UA (POCT) 1.020 1.005 - 1.030 [facility] UROBILINOGEN UA (POCT) 0.2 E.U./dL [place] l E.U./dL [facility] BASIC METABOLIC PANELon 10-15 Anion gap [Moles/Vol] 8 mmol/L Normal 3-13 [facility] Comment on above: Performed By: #### L [id number], [id number] #### Channel Development Director: TOYIN WRIGHT ([id number]) [facility] ([facility]) [address] [place] [address] [place] Calcium [Mass/Vol] 8.7 mg/dL Normal 8.4-10.4 [facility] Comment on above: Performed By: #### L [id number], [id number] #### Channel Development Director: TOYIN WRIGHT ([id number]) [facility] ([facility]) [address] [place] [address] [place] Chloride [Moles/Vol] 104 mmol/L Normal 98-107 [facility] Comment on above: Performed By: #### L [id number], [id number] #### Channel Development Director: TOYIN WRIGHT ([id number]) [facility] ([facility]) [address] [place] [address] CO2 [Moles/Vol] 23 mmol/L Normal 22-30 [facility] Comment on above: Performed By: #### L [id number], [id number] #### Channel Development Director: TOYIN WRIGHT ([id number]) [facility] ([facility]) [address] [place] [address] Creatinine [Mass/Vol] 0.80 mg/dL Normal 0.52-1.04 [facility] Comment on above: Performed By: #### L [id number], [id number] #### Channel Development Director: TOYIN WRIGHT ([id number]) [facility]) [address] [place] [address] GLOMERULAR FILTRATION RATE ML/MIN/1.73 SQ M.PREDICTED >90.0 Normal >60.0 [facility] Comment on above: Result Comment: Calc ulation based on the Chronic Kidney Disease Epidemiology Collaboration (CKD-EPI) equation refit without adjustment for race Performed By: #### L [id number], [id number] #### Channel Development Director: TOYIN WRIGHT ([id number]) [facility] ([facility]) [address] [place] [address] Glucose [Mass/Vol] 86 mg/dL Normal 70-100 [facility] Comment on above: Performed By: #### L [id number], [id number] #### Channel Development Director: TOYIN WRIGHT ([id number]) [facility]) [address] [place] [address] [place] Potassium [Moles/Vol] 4.0 mmol/L Normal 3.5-5.1 [facility] Comment on above: Performed By: #### L [id number], [id number] #### Channel Development Director: TOYIN WRIGHT ([id number]) [facility]) [address] [place] [address] [place] Sodium [Moles/Vol] 135 mmol/L Normal 135-145 [facility] Comment on above: Performed By: #### L [id number], [id number] #### Channel Development Director: TOYIN WRIGHT ([id number]) [facility] ([facility]) [address] [place] [address] Urea nitrogen [Mass/Vol] 9 mg/dL Normal 7-17 [facility] Comment on above: Performed By: #### L [id number], [id number] #### Channel Development Director: TOYIN WRIGHT ([id number]) [facility] [address] [place] [address] Basic metabolic 1998 panelon 11-02-2023 Anion gap [Moles/Vol] 8 mmol/L 3 - 13 mmol/L [facility] Calcium [Mass/Vol] 8.7 mg/dL 8.4 - 10. 4 mg/dL [facility] Chloride [Moles/Vol] 104 mmol/L 98 - 10 7 mmol/L [facility] CO2 [Moles/Vol] 23 mmol/L 22 - 30 mmol/L [facility] Creatinine [Mass/Vol] 0.80 mg/dL 0.52 - 1.04 mg/dL [facility] GFR/1.73 sq M.predicted MDRD (S/P/Bld) [Vol rate/Area] - PINF [facility] Comment on above: Calculation based on the Chronic Kidney Disease Epidemiology Collaboration (CKD-EPI) equation refit without adjustment for race Glucose [Mass/Vol] 86 mg/dL 70 - 100 mg/dL [facility] Interpretation and review of laboratory results Normal [facility] Potassium [Moles/Vol] 4.0 mmol/L 3.5 - 5.1 mmol/L [facility] Sodium [Moles/Vol] 135 mmol/L 135 - 145 mmol/L [facility] Urea nitrogen [Mass/Vol] 9 mg/dL 7 - 17 mg/d L [facility] CBC W Auto Differential pane l (Bld)Ordered By: Brittany Araya on 11-02-2023 Basophils (Bld) [#/Vol] 0.0 10*3/uL 0.0 - 0.2 10*3/uL [facility] Basophils/100 WBC (Bld) 0.3 % 0.0 - 2.0 % [facility] Eosinophils (Bld) [#/Vol] 0.1 10*3/uL 0.0 - 0.5 10*3/uL [facility] Eosinophils/100 WBC (Bld) 2.3 % 1.0 - 6.0 % [facility] Erythrocyte distribution width (RBC) [Ratio] 13.7 % 11.5 - 14.5 % [facility] Hematocrit (Bld) [Volume fraction] 35.8 % 35.0 - 47.0 % [facility] Hemoglobin (Bld) [Mass/Vol] 12.0 g/dL 11.7 - 16.0 g/dL [facility] Interpretation and review of laboratory results Abnormal [facility] Lymphocytes (Bld) [#/Vol] 1.0 10*3/uL 1.0 - 4.3 10*3/uL [facility] Lymphocytes/100 WBC (Bld) 18.9 % Low 20.0 - 40.0 % [facility] MCH (RBC) [Entitic mass] 30.6 pg 26. 0 - 34.0 pg [facility] MCHC (RBC) [Mass/Vol] 33.4 % 32.0 - 36.0 % [facility] MCV (RBC) [Entitic vol] 91.5 fL 80.0 - 98.0 fL [facility] Monocytes (Bld) [#/Vol] 0.7 10*3/uL 0.0 - 0.8 10*3/uL [facility] Monocytes/100 WBC (Bld) 12.3 % High 2.0 - 10.0 % [facility] Neutrophils (Bld) [#/Vol] 3.7 10*3/uL 1.8 - 7.0 10*3/uL [facility] Neutrophils/100 WBC (Bld) 66.2 % 40.0 - 80.0 % [facility] Nucleated RBC/100 WBC (Bld) [Ratio] 0.0 % [facility] Platelet mean volume (Bld) [Entitic vol] 8.6 fL 7.4 - 12.4 fL [facility] Platelets (Bld) [#/Vol] 194 10*3/uL 140 - 440 10*3/uL [facility] RBC (Bld) [#/Vol] 3.91 10*6/uL 3.8 - 5.20 10*6/uL [facility] WBC (Bld) [#/Vol] 5.5 10*3/uL 3.6 - 10.7 10*3/uL [facility] CBC WITH AUTO DIFFERENTIALon 11-02-2023 Basophils (Bld) [#/Vol] 0.0 10*3/uL Normal 0.0-0.2 [facility] Comment on above: Performed By: #### L [id number] ####Channel Development Director: TOYIN WRIGHT ([id number])[facility] ([facility])[address] [place] [address] Basophils/100 WBC (Bld) 0.3 % Normal 0.0-2.0 [facility] Comment on above: Performed By: #### L [id number] ####Channel Development Director: TOYIN WRIGHT ([id number])[facility] ([facility])[address] [place] [address] Eosinophils (Bld) [#/Vol] 0.1 10*3/uL Normal 0.0-0.5 [facility] Comment on above: Performed By: #### L [id number] ####Channel Development Director: TOYIN WRIGHT ([id number])[facility] ([facility])[address] [place] [address] Eosinophils/100 WBC (Bld) 2.3 % Normal 1.0-6.0 [facility] Comment on above: Performed By: #### L [id number] ####Channel Development Director: TOYIN WRIGHT ([id number])[facility])[address] [place] [address] Erythrocyte distribution width (RBC) [Ratio] 13.7 % Normal 11.5-14.5 [facility] Comment on above: Performed By: #### L [id number] ####Channel Development Director: TOYIN WRIGHT ([id number])[facility])[address] [place] [address] ERYTHROCYTE MEAN CORPUSCULAR HEMOGLOBIN CONCENTRATION (G/DL) BY AUTOMATED 33.4 % Normal 32.0-36.0 [facility] Comment on above: Performed By: #### L [id number] ####Channel Development Director: TOYIN WRIGHT ([id number])[facility])[address] [place] [address] Hematocrit (Bld) [Volume fraction] 35.8 % Normal 35.0-47.0 [facility] Comment on above: Performed By: #### L [id number] ####Channel Development Director: TOYIN WRIGHT ([id number])[facility])[address] [place] [address] Hemoglobin (Bld) [Mass/Vol] 12.0 g/dL Normal 11.7-16.0 [facility] Comment on above: Performed By: #### L [id number] ####Channel Development Director: TOYIN WRIGHT ([id number])[facility])[address] [place] [address] Lymphocytes (Bld) [#/Vol] 1.0 10*3/uL Normal 1.0-4.3 [facility] Comment on above: Performed By: #### L [id number] ####Channel Development Director: TOYIN WRIGHT ([id number])[facility])[address] [place] [address] Lymphocytes/100 WBC (Bld) 18.9 % Low 20.0-40.0 [facility] Comment on above: Performed By: #### L [id number] ####Channel Development Director: TOYIN WRIGHT ([id number])[facility])[address] [place] [address] MCH (RBC) [Entitic mass] 30.6 pg Normal 26.0-34.0 [facility] Comment on above: Performed By: #### L [id number] ####Channel Development Director: TOYIN WRIGHT ([id number])[facility])[address] [place] [address] MCV (RBC) [Entitic vol] 91.5 fL Normal 80.0-98.0 S [facility] Comment on above: Performed By: #### L [id number] ####Channel Development Director: TOYIN WRIGHT ([id number])[facility])[address] [place] [address] [place] Monocytes (Bld) [#/Vol] 0.7 10*3/uL Normal 0.0-0.8 [facility] Comment on above: Performed By: #### L [id number] ####Channel Development Director: TOYIN WRIGHT ([id number])[facility] ([facility])[address] [place] [address] Monocytes/100 WBC (Bld) 12.3 % High 2.0-10.0 [facility] Comment on above: Performed By: #### L [id number] ####Channel Development Director: TOYIN WRIGHT ([id number])[facility] ([facility])[address] [place] [address] [place] Neutrophils (Bld) [#/Vol] 3.7 10*3/uL Normal 1.8-7.0 [facility] Comment on above: Performed By: #### L [id number] ####Channel Development Director: TOYIN WRIGHT ([id number])[facility] ([facility])[address] [place] [address] Neutrophils/100 WBC (Bld) 66.2 % Normal 40.0-80.0 [facility] Comment on above: Performed By: #### L [id number] ####Channel Development Director: TOYIN WRIGHT ([id number])[facility])[address] [place] [address] [place] NRBC (PER 100 WBCS) BY AUTOMATED COUNT 0.0 /100 WBCs Normal 0.0-2.0 [facility] Comment on above: Performed By: #### L [id number] ####Channel Development Director: TOYIN WRIGHT ([id number])[facility] ([facility])[address] [place] [address] [place] Platelet mean volume (Bld) [Entitic vol] 8.6 fL Normal 7.4-12.4 [facility] Comment on above: Performed By: #### L [id number] ####Channel Development Director: TOYIN WRIGHT ([id number])[facility] ([facility])[address] [place] [address] [place] Platelets (Bld) [#/Vol] 194 10*3/uL Normal 140-440 [facility] Comment on above: Performed By: #### L [id number] ####Channel Development Director: TOYIN RAFAELJose ([id number])[facility] ([facility])[address] [place] [address] RBC (Bld) [#/Vol] 3.91 10*6/uL Normal 3.8-5.20 [facility] Comment on above: Performed By: #### L [id number] ####Channel Development Director: TOYIN AARONDIANE ([id number])[facility])[address] [place] [address] WBC (Bld) [#/Vol] 5.5 10*3/uL Normal 3.6-10.7 [facility] Comment on above: Performed By: #### L [id number] ####Channel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 Development Director: TOYIN WRIGHT ([id number])[facility] ([facility])[address] [place] [address] No Panel Informationon 11-02 Radiology Study observation (narrative) [facility] Progress Noteon 11-02-2023 Progress Note Did receive notification from pharmacy that the written script for 3 days of percocet could not be completed without written STEPHANY # on it. Did cancel previous script and new one e-scribed to patient's pharmacy. Pharmacy aware. Daiana Pink MD Normal [facility] XR Hand - right 3 Viewson Negative plain film examination of the right hand. Report Dictated on Electronically Signed By: Reginald Liz MD Electronically Signed Date/Time: 11/02/2023 9:35 AM [facility] Patient Name: PENNIE KOENIG : 1995 Exam Date/Time: 11/02/2023 09:10 Procedure: XR HAND 3+ VIEWS RIGHT Ordering Provider: BARNES VISHNU Reason For Exam: trauma RIGHT HAND CLINICAL INDICATION: Pain after trauma AP, lateral, and oblique plain film views of the right hand were obtained. COMPARISON: None FINDINGS: No fracture or dislocation of the right hand is identified. There is no abnormal soft tissue swelling or radiopaque foreign body seen. [facility] Reginald Liz MD - 11/02/2023 Patient Name: PENNIE KOENIG : 1995 Exam Date/Time: 11/02/2023 09:10 Procedure: XR HAND 3+ VIEWS RIGHT Ordering Provider: BARNES VISHNU Reason For Exam: trauma RIGHT HAND CLINICAL INDICATION: Pain after trauma AP, lateral, and oblique plain film views of the right hand were obtained. COMPARISON: None FINDINGS: No fracture or dislocation of the right hand is identified. There is no abnormal soft tissue swelling or radiopaque foreign body seen. IMPRESSION: Negative plain film examination of the right hand. Report Dictated on Electronically Signed By: Reginald Liz MD Electronically Signed Date/Time: 11/02/2023 9:35 AM [facility] Radiology Study observation (narrative) [facility] alth XR Hand - right 3 ViewsOrder ed By: Reginald Liz on 11-02-2023 [facility] XR Tibia and Fibula - left 2 Viewson 11-02-2023 Negative plain film examination of the left tibia and fibula. Report Dictated on Electronically Signed By: Reginald Lzi MD Electronically Signed Date/Time: 11/02/2023 9:32 AM [facility] Patient Name: PENNIE KOENIG : 1995 Exam Date/Time: 11/02/2023 09:10 Procedure: XR TIBIA FIBULA 2 VIEWS LEFT Ordering Provider: BARNES VISHNU Reason For Exam: trauma LEFT TIBIA AND FIBULA CLINICAL INDICATION: Pain after trauma AP and lateral plain film views of the left tibia and fibula were obtained. COMPARISON: None FINDINGS: No fracture or dislocation of the left tibia or fibula is identified. There is no abnormal soft tissue swelling or radiopaque foreign body seen. [facility] Reginald Liz MD - 11/02/2023 Patient Name: PENNIE KOENIG : 1995 Exam Date/Time: 11/02/2023 09:10 Procedure: XR TIBIA FIBULA 2 VIEWS LEFT Ordering Provider: BARNES VISHNU Reason For Exam: trauma LEFT TIBIA AND FIBULA CLINICAL INDICATION: Pain after trauma AP and lateral plain film views of the left tibia and fibula were obtained. COMPARISON: None FINDINGS: No fracture or dislocation of the left tibia or fibula is identified. There is no abnormal soft tissue swelling or radiopaque foreign body seen. IMPRESSION: Negative plain film examination of the left tibia and fibula. Report Dictated on Electronically Signed By: Reginald Liz MD Electronically Signed Date/Time: 11/02/2023 9:32 AM EST [facility] Radiology Study observation (narrative) [facility] alth hCG, quantitative, on 11-02-2023 HCG.beta subunit Qn Females <=5 mIU/mL [facility] Values in should double every 2 to 3 days for the first 6 weeks. Elevated concentrations of human chorionic gonadotropin (hCG) measured in the first trimester of are observed in normal , but may serve as an indication of chorionic carcinoma, hydatiform mole, or multiple . Decreasing hCG concentrations indicate threatened or missed , recent termination of , ectopic , gestosis or intrauterine . Krista- and postmenopausal females may have detectable hCG concentrations (< or = to 14 mIU/mL) due to pituitary production of hCG. Serum follicle-stimulatin g hormone measurement may aid in ruling-out in this population. Cutoffs of greater than 20 to 45 mIU/mL have been suggested and are method dependent. False-elevations (called phantom human chorionic gonadotropin: hCG) may occur with patients who have human antianimal or heterophilic antibodies. Some specimens may not dilute linearly due to abnormal forms of hCG. Elevated hCG concentrations not associated with are found in patients with other diseases such as tumors of the germ cells, ovaries, bladder, pancreas, stomach, lungs, and liver. This test is not intended to detect or monitor tumors or gestational trophoblastic disease. [facility] Absolute lymphocyte countOrd ered By: Jany Norton on 06-20-2023 Lymphocytes Auto (Unsp spec) [#/Vol] 0.84 10*3/uL 0.83-4.51 [facility] Basophil percentageOrdered B y: Jany Norton on 06-20-2023 Basophils/100 WBC (Bld) 0.4 % 0-1 [facility] Chloride [Moles/Vol] 105 mmol/L 98-107 [facility] Eosinophils/100 WBC (Bld) 0.7 % 0-5 [facility] Glucose [Mass/Vol] 100 mg/dL 74-106 [facility] Comment on above: Fasting Glucose resu lt from 100 to 125 mg/dL suggests IMPAIRED HOMEOSTASIS per A.D.A. criteria. Neutrophils (Bld) [#/Vol] 7.1 10*3/uL 2.0-7.7 [facility] Neutrophils/100 WBC (Bld) 83.7 % 47-70 [facility] Potassium [Moles/Vol] 3.9 mmol/L 3.5-5.1 [facility] Sodium [Moles/Vol] 135 mmol/L 136-145 [facility] WBC (Bld) [#/Vol] 8.4 10*3/uL 4.4-11.0 [facility] Beta hCG serum qualOrdered B y: Jany Norton on 06-20-2023 Beta HCG ( test) Ql Negative [facility] Blood erythrocytes count (nu mber/volume)Ordered By: Jany Norton on 06-20-2023 RBC (Bld) [#/Vol] 4.40 10*6/uL 4.2-5.4 [facility] Blood hemoglobin measurement (mass/volume)Ordered By: Jany Norton on 06-20-2023 Hemoglobin (Bld) [Mass/Vol] 13.3 g/dL 12.0-15.0 [facility] Blood lymphocytes/100 leukoc ytesOrdered By: Jany Norton on 06-20-2023 Lymphocytes/100 WBC (Bld) 10.0 % 19-41 [facility] Blood monocytes/100 leukocyt esOrdered By: Jany Norton on 06-20-2023 Monocytes/100 WBC (Bld) 5.0 % 0-10 [facility] Blood platelet mean volumeOr dered By: Jany Norton on 06-20-2023 Platelet mean volume (Bld) [Entitic vol] 10.5 fL 6.2-12.0 [facility] Determination of erythrocyte mean corpuscular volume (MCV)Ordered By: Jany Norton on 06-20-2023 MCV (RBC) [Entitic vol] 90.2 fL 81-99 [facility] Hematocrit Auto (Bld) [Volum e fraction]Ordered By: Jany Norton on 06-20-2023 Hematocrit (Bld) [Volume fraction] 39.7 % 37-47 [facility] Laboratory - Chemistry and C hemistry - challengeOrdered By: Jany Norton on 06-20-2023 CO2 [Moles/Vol] 27.0 mmol/L 21.0-32.0 [facility] Urea nitrogen/Creatinine [Mass ratio] 15.3 mg/mg 10-20 [facility] Laboratory - Hematology and Cell countsOrdered By: Jany Norton on 06-20-2023 Erythrocyte distribution width (RBC) [Entitic vol] 38.6 fL 35.1-43.9 [facility] Erythrocyte distribution width (RBC) [Ratio] 11.7 % 11.6-14.6 [facility] Immature granulocytes/100 WBC (Bld) 0.200 % 0.0-0.9 [facility] Comment on above: IG% - Immature Granu locytes (promyelocytes, myelocytes and metamyelocytes) > 1% indicates that a LEFT SHIFT is Present. MCH (RBC) [Entitic mass] 30.2 pg 27.0-32.0 [facility] Nucleated RBC/100 WBC (Bld) [Ratio] 0 % 0-5 [facility] MCHC Auto (RBC) [Mass/Vol]Or dered By: Jany Norton on 06-20-2023 MCHC (RBC) [Mass/Vol] 33.5 g/dL 32-36 [facility] No Panel InformationOrdered By: Jany Norton on 06-20-2023 Estimated Creatinine Clearance Calc 117.35 ml/min [facility] Estimated GFR (MDRD) Amer 124 mL/min >60 [facility] Comment on above: GFR Calc Estimated GFR (MDRD) Non-Af Amer 102 mL/min >60 [facility] Comment on above: Non- GFR Calc Platelets bldOrdered By: Kriss Norton on 06-20-2023 Platelets (Bld) [#/Vol] 269 10*3/uL 150-450 [facility] Serum or plasma calcium eliezer urement (mass/volume)Ordered By: Jany Norton on 06-20-2023 Calcium [Mass/Vol] 8.7 mg/dL 8.5-10.1 [facility] Serum or plasma creatinine m easurement (mass/volume)Ordered By: Jany Norton on 06-20-2023 Creatinine [Mass/Vol] 0.72 mg/dL 0.55-1.02 [facility] Comment on above: The validity of the calculated GFR & GFRAA in patients over 70 years has not been determined. Clinical correlation is essential. Serum or plasma urea nitroge n measurement (mass/volume)Ordered By: Jany Norton on 06-20-2023 Urea nitrogen [Mass/Vol] 11 mg/dL 7-18 [facility] Thin prep Papanicolaou smear with manual screeningOrdered By: Jany Norton on 06-20-2023 Thin prep Papanicolaou smear with manual screening 3 5-15 [facility] UA DIP, URINE (POC)on 2022 BILIRUBIN UA (POCT) Negative Negative [facility] CL[facility] (POCT[facility] ([facility] Yellow [facility] GLUCOSE UA (POCT) Negative Negative mg/dL [facility] Hemoglobin Ql (U) Trace-intact Abnormal Negative [facility] KETONE UA (POCT) Trace Negative mg/dL [facility] LEUKOCYTES UA (POCT) Small Abnormal Negative [facility] NITRITE UA (POCT) Negative Negative [facility] PH UA (POCT) 6.0 4.5 - 8.0 [facility] Protein Ql (U) 30 mg/dL Abnormal Negative mg/dL [facility] SPECIFIC GRAVITY UA (POCT) >=1.030 1.005 - 1.030 [facility] UROBILINOGEN UA (POCT) 0.2 E.U./dL [place] E.U./dL [facility] Chlamydia trachomatis rRNA d etection by probe and target amplification methodOrdered By: Josi Nunn on 05-03-2023 C. trachomatis rRNA JANNIE+probe Ql (Unsp spec) Negative Negative [facility] Gram stain for investigation of transfusion reactionOrdered By: Josi Nunn on 05-03-2023 Microscopic observation Gram stain Nom (Unsp spec) [facility] Laboratory - Microbiology an d Antimicrobial susceptibilityOrdered By: Josi Nunn on 05-03-2023 N. gonorrhoeae DNA JANNIE+probe Ql (Unsp spec) Negative Negative [facility] Comment on above: Performed at: =[address] [id number] Director: Vianey Giles MD, Phone: [phone] No Panel Informationon 05-03 POC Bacterial Vaginitis (Rapid) Positive [facility] Thin prep Papanicolaou smear with manual screeningOrdered By: Josi Nunn on 05-03-2023 Genital Culture G. vaginalis (Presumptive) [facility] Genital Culture Presumptive C albicans [facility] UA DIP, URINE (POC)on 2022 BILIRUBIN UA (POCT) Negative Negative [facility] CLARITY UA (POCT) Cloudy [facility] COLOR UA (POCT) [place] [facility] GLUCOSE UA (POCT) Negative Negative mg/dL [facility] HEMOGLOBIN/BLOOD UA (POCT) Negative Negative [facility] KETONE UA (POCT) Trace Negative mg/dL [facility] LEUKOCYTES UA (POCT) Small Abnormal Negative [facility] NITRITE UA (POCT) Positive Abnormal Negative [facility] PH UA (POCT) 6.5 4.5 - 8.0 [facility] Protein Ql (U) Negative Negative mg/dL [facility] SPECIFIC GRAVITY UA (POCT) 1.020 1.005 - 1.030 [facility] UROBILINOGEN UA (POCT) 0.2 E.U./dL [place] E.U./dL [facility] STREP A MOLECULAR (POC)on Procedural Control Valid [facility] Strep A (POCT) Positive Abnormal Negative [facility] Chlamydia trachomatis rRNA d etection by probe and target amplification methodon 09-14-2022 C. trachomatis rRNA JANNIE+probe Ql (Unsp spec) Negative Negative [facility] Work Phone: Laboratory - Chemistry and C hemistry - challengeon 09-14-2022 Bilirubin Ql (U) Negative [facility] Work Phone: Glucose Ql (U) Negative [facility] Work Phone: Ketones Ql (U) Small (15+) [facility] Work Phone: pH (U) 5.0 [pH] [facility] Work Phone: Urobilinogen (U) [Mass/Vol] Negative [facility] Work Phone: Laboratory - Hematology and Cell countson 09-14-2022 Hemoglobin Ql (U) Moderate [facility] Work Phone: Laboratory - Microbiology an d Antimicrobial susceptibilityon 09-14-2022 N. gonorrhoeae DNA JANNIE+probe Ql (Unsp spec) Negative Negative [facility] Work Phone: Comment on above: Performed at: =[address] [id number] Director: Vianey Giles MD, Phone: [phone] Laboratory - Specimen inform ationon 09-14-2022 Clarity (U) Cloudy [facility] Work Phone: Color (U) YELLOW [facility] Work Phone: Laboratory - Urinalysison Nitrite Ql (U) Negative [facility] Work Phone: Protein Ql (U) Negative [facility] Work Phone: No Panel Informationon 09-14 POC Trichomonas (Rapid) Negative [facility] Work Phone: Urine Leukocytes Positive [facility] Work Phone: Urine Non-Hemolyzed Blood [facility] Work Phone: UA DIP, URINE (POC)on 2021 BILIRUBIN UA (POCT) Negative Negative [facility] CLARITY UA (POCT) Clear [facility] COLOR UA (POCT) Dark yellow [facility] GLUCOSE UA (POCT) Negative Negative mg/dL [facility] HEMOGLOBIN/BLOOD UA (POCT) Trace-intact Abnormal Negative [facility] KETONE UA (POCT) Negative Negative mg/dL [facility] LEUKOCYTES UA (POCT) Negative Negative [facility] NITRITE UA (POCT) Positive Abnormal Negative [facility] PH UA (POCT) 7.0 4.5 - 8.0 [facility] Protein Ql (U) Trace Abnormal Negative mg/dL [facility] SPECIFIC GRAVITY UA (POCT) 1.020 1.005 - 1.030 [facility] UROBILINOGEN UA (POCT) 0.2 E.U./dL [place] E.U./dL [facility] HIV 1 and HIV-2 antibody ass ay with HIV-1 p24 antigen detectionon 07-20-2022 HIV 1+2 Ab+HIV1 p24 Ag IA Ql Non-Reactive Nonreactive [facility] Work Phone: Laboratory - Chemistry and C hemistry - challengeon 07-20-2022 Free T4 [Mass/Vol] 0.91 ng/dL 0.76-1.46 [facility] Work Phone: T4 [Mass/Vol] 7.6 ug/dL 4.8-13.9 [facility] Work Phone: No Panel Informationon 07-20 Hepatitis C Antibody Non-Reactive Nonreactive [facility] Work Phone: Comment on above: Non Reactive: < 0.8 Equivocal: >/= 0.8 to < 1.0 Reactive: >/= 1.0The [facility] recommends that a reactive/equivocal HCV antibody result be followed up by the HCV Nucleic Acid Amplificationtest (458066) Herpes Simplex Virus I IgG Antibody < 0.91 index 0.00-0.90 [facility] Work Phone: Comment on above: Negative <0.91 Equiv ocal 0.91 - 1.09 Positive >1.09 Note: Negative indicates no antibodies detected to HSV-1. Equivocal may suggest early infection. If clinically appropriate, retest at later date. Positive indicates antibodies detected to HSV-1. Thyroid Stimulating Hormone (TSH) 0.46 uIU/mL 0.358-3.74 [facility] Work Phone: Serum Treponema species anti body detectionon 07-20-2022 Treponema sp Ab Ql (S) Non-Reactive [facility] Work Phone: Serum herpes simplex virus 2 antibody assay by immunoassay (units/volume)on 07-20-2022 HSV 2 Ab IA Qn (S) 8.40 index 0.00-0.90 [facility] Work Phone: Comment on above: Negative <0.91 Equiv ocal 0.91 - 1.09 Positive >1.09 Note: Negative indicates no HSV-2 antibodies detected. Positive indicates HSV-2 antibodies detected. Equivocal and low positive HSV-2 screens (Index 0.91-5.00) may be false positive and are reflexed to supplemental testing in accordance with CDC guidelines.Performed at: [address] [id number] Director: Channing Martinez PhD, Phone: [phone] Laboratory - Chemistry and C hemistry - challengeon 06-22-2022 HCG ( test) Ql (U) Negative [facility] Work Phone: UA DIP, URINE (POC)on 2021 BILIRUBIN UA (POCT) Negative Negative [facility] CLARITY UA (POCT) Clear [facility] COLOR UA (POCT) Yellow [facility] GLUCOSE UA (POCT) Negative Negative mg/dL [facility] HEMOGLOBIN/BLOOD UA (POCT) Trace-intact Abnormal Negative [facility] KETONE UA (POCT) Negative Negative mg/dL [facility] LEUKOCYTES UA (POCT) Negative Negative [facility] NITRITE UA (POCT) Negative Negative [facility] PH UA (POCT) 7.5 4.5 - 8.0 [facility] Protein Ql (U) Negative Negative mg/dL [facility] SPECIFIC GRAVITY UA (POCT) 1.020 1.005 - 1.030 [facility] UROBILINOGEN UA (POCT) 0.2 E.U./dL [place] E.U./dL [facility] Basophil percentageon 2021 C. trachomatis DNA JANNIE+probe Ql (Unsp spec) Negative Negative [facility] Work Phone: Laboratory - Chemistry and C hemistry - challengeon 06-05-2022 HCG ( test) Ql (U) Negative [facility] Work Phone: Neisseria gonorrhoeae detect ion by PCRon 06-05-2022 N. gonorrhoeae DNA JANNIE+probe Ql (Cervical mucus) Negative Negative [facility] Work Phone: No Panel Informationon 06-05 POC Trichomonas (Rapid) Negative [facility] Work Phone: Cervical or vagninal specime n microscopic examination by cytology stain (reported ason 05-09-2022 Cytology report Cyto stain Doc (Cvx/Vag) Comment . [facility] Work Phone: Comment on above: The Pap smear is a s creening test designed to aid in thedetection of premalignant and malignant conditions of theuterine cervix. It is not a diagnostic procedure andshould not be used as the sole means of detecting cervicalcancer. Both false-positive and false-negative reports dooccur. Chlamydia trachomatis rRNA d etection by probe and target amplification methodon 05-09-2022 C. trachomatis rRNA JANNIE+probe Ql (Unsp spec) Negative Negative [facility] Work Phone: Laboratory - Cytologyon 04-15 Rivet Spinner Cyto stain Nom (Cvx/Vag) [ID] Comment . [facility] Work Phone: Comment on above: Tamika Macario, Postdoctoral Scientist (ASCP) Laboratory - Microbiology an d Antimicrobial susceptibilityon 05-09-2022 N. gonorrhoeae DNA JANNIE+probe Ql (Unsp spec) Negative Negative [facility] Work Phone: Comment on above: Performed at: =G - [facility] [address] [id number] Director: Vianey Giles MD, Phone: [phone] Laboratory - Miscellaneous t estson 05-09-2022 Service comment (Unsp spec) [Interp] Comment . [facility] Work Phone: Comment on above: This liquid based Th inPrep(R) pap test was screened withthe use of an image guided system. Service comment (Unsp spec) [Interp] . . [facility] Work Phone: No Panel Informationon 05-09 Human Papillomavirus Screen Comment . [facility] Work Phone: Comment on above: The HPV DNA reflex c riteria were not met with this specimenresult therefore, no HPV testing was performed.Performed at: - [facility] [id number] Director: Vianey Giles MD, Phone: [phone] Pathology report final diagnosis Narrative Comment . [facility] Work Phone: Comment on above: NEGATIVE FOR INTRAEP ITHELIAL LESION OR MALIGNANCY.PREDOMINANCE OF COCCOBACILLI CONSISTENT WITH SHIFT IN VAGINAL ARMINDA ISPRESENT. POC Bacterial Vaginitis (Rapid) Positive [facility] Work Phone: POC Trichomonas (Rapid) Negative [facility] Work Phone: Microbiology: Culture, Genit al Comprehensiveon 10-29-2017 GE use only - for LinkLogic import when terms are not otherwise specified . Invalid Interpretation Code [facility] Lab Report: CT/NG [facility] BY PCR on 10-25-2017 Chlamydia trachomatis DNA [Presence] in Urine by Probe and target amplification method Negative Invalid Interpretation Code Negative [facility] Neisseria gonorrhoeae presence Negative Invalid Interpretation Code Negative [facility] Office Visit: OB Routineon 1 10-20-2016 Documentation of current medications (procedure) Done Invalid Interpretation Code [facility] Tobacco smoking status NHIS Tobacco smoking status NHIS Invalid Interpretation Code [facility] Tobacco use CPHS Never smoker Invalid Interpretation Code [facility] Urine, glucose presence N Invalid Interpretation Code [facility] Urine, protein N Invalid Interpretation Code [facility] Office Visit: OB Routineon 1 Documentation of current medications (procedure) Done Invalid Interpretation Code [facility] Urine, glucose presence N Invalid Interpretation Code [facility] Urine, protein N Invalid Interpretation Code [facility] Microbiology: Culture, Group B Streptococcuson 08-10-2017 CUGRB ARISTIDES CultureGroup B Beta Streptococcus is not isolated. Invalid Interpretation Code [facility] Lab Report: Group B Strep DN A By PCRon 08-07-2017 GBS TEST RESULT Negative Invalid Interpretation Code Negative [facility] group B strep culture, vaginal Negative Invalid Interpretation Code Negative [facility] Office Visit: OB Routineon 1 Albumin Ql (U) N Invalid Interpretation Code [facility] Documentation of current medications (procedure) Done Invalid Interpretation Code [facility] Glucose Test strip mass conc (U) N Invalid Interpretation Code [facility] Protein mass conc Done Invalid Interpretation Code [facility] Urine, glucose presence N Invalid Interpretation Code [facility] Urine, protein N Invalid Interpretation Code [facility] Office Visit: OB Routineon 1 Albumin Ql (U) N Invalid Interpretation Code [facility] Glucose Test strip mass conc (U) N Invalid Interpretation Code [facility] Protein mass conc Done Invalid Interpretation Code [facility] Office Visit: OB Routineon 1 Albumin Ql (U) N Invalid Interpretation Code [facility] Glucose Test strip mass conc (U) N Invalid Interpretation Code [facility] Protein mass conc Done Invalid Interpretation Code [facility] Office Visit: OB Routineon 0 07-02-2017 Documentation of current medications (procedure) Done Invalid Interpretation Code [facility] Urine, glucose presence N Invalid Interpretation Code [facility] Urine, protein N Invalid Interpretation Code [facility] Blood Bank: Type AND Screeno n 06-27-2017 Antibody Screen Negative Normal [facility] GE use only - for Link[employer] import when terms are not otherwise specified Negative Normal [place] [facility] Culture, urine Bacteria identified Cx Nom (U) Mixed Gram Pos & Gram Neg Org [facility] Work Phone: Gram stain for investigation of transfusion reaction Microscopic observation Gram stain Nom (Unsp spec) [facility] Work Phone: Thin prep Papanicolaou smear with manual screening Genital Culture GNR lactose dramatic director [facility] Work Phone: Genital Culture Streptococcus agalactiae (B) [facility] Work Phone: Genital Culture Streptococcus group B [facility] Work Phone: Vital Signs Date Time Vital Sign Value Performing Clinician Facility 05-27-2025 10:26-0400 Body height 172.[address] Lashawn Avila DO Work Phone: [facility] 05-27-2025 10:26-0400 Body mass index (BMI) [Ratio] 32.3 kg/m2 Dr. Lashawn Avila DO Work Phone: [facility] 05-27-2025 10:26-0400 Body weight 96.[address] Lashawn Avila DO Work Phone: [facility] 05-27-2025 10:26-0400 Diastolic blood pressure 73 mm[Hg] Dr. Lashawn Avila DO Work Phone: [facility] 05-27-2025 10:26-0400 Systolic blood pressure 113 mm[Hg] Dr. Lashawn Avila DO Work Phone: [facility] 02-12-2025 12:45-0400 Body temperature 99 [degF] Dr. Lashawn Avila DO Work Phone: [facility] 02-12-2025 12:45-0400 Diastolic blood pressure 75 mm[Hg] Dr. Lashawn Avila DO Work Phone: [facility] 02-12-2025 12:45-0400 Heart rate 80 /min Dr. Lashawn Avila DO Work Phone: [facility] 02-12-2025 12:45-0400 Respiratory rate 18 /min Dr. Lashawn Avila DO Work Phone: [facility] 02-12-2025 12:45-0400 SaO2% (BldA) [Mass fraction] 98 % Dr. Lashawn Avila DO Work Phone: [facility] 02-12-2025 12:45-0400 Systolic blood pressure 125 mm[Hg] Dr. Lashawn Avila DO Work Phone: [facility] 02-12-2025 10:15-0400 Body height 172.[address] Lashawn Avila DO Work Phone: [facility] 02-12-2025 10:15-0400 Body mass index (BMI) [Ratio] 34.4 kg/m2 Dr. Lashawn Avila DO Work Phone: [facility] 02-12-2025 10:15-0400 Body weight 102.[address] Lashawn Avila DO Work Phone: [facility] 01-01-2025 17:42-0400 Body temperature 98.4 [degF] Dr. Lashawn Avila DO Work Phone: [facility] 01-01-2025 17:42-0400 Diastolic blood pressure 84 mm[Hg] Dr. Lashawn Avila DO Work Phone: [facility] 01-01-2025 17:42-0400 Heart rate 72 /min Dr. Lashawn Avila DO Work Phone: [facility] 01-01-2025 17:42-0400 Respiratory rate 16 /min Dr. Lashawn Avila DO Work Phone: [facility] 01-01-2025 17:42-0400 SaO2% (BldA) [Mass fraction] 98 % Dr. Lashawn Avila DO Work Phone: [facility] 01-01-2025 17:42-0400 Systolic blood pressure 129 mm[Hg] Dr. Lashawn Avila DO Work Phone: [facility] 01-01-2025 17:07-0400 Body temperature 98.1 [degF] Dr. Lashawn Avila DO Work Phone: [facility] 01-01-2025 17:07-0400 Diastolic blood pressure 69 mm[Hg] Dr. Lashawn Avila DO Work Phone: [facility] 01-01-2025 17:07-0400 Heart rate 81 /min Dr. Lashawn Avila DO Work Phone: [facility] 01-01-2025 17:07-0400 Respiratory rate 16 /min Dr. Lashawn Avila DO Work Phone: [facility] 01-01-2025 17:07-0400 SaO2% (BldA) [Mass fraction] 98 % Dr. Lashawn Avila DO Work Phone: [facility] 01-01-2025 17:07-0400 Systolic blood pressure 137 mm[Hg] Dr. Lashawn Avila DO Work Phone: [facility] 01-01-2025 12:37-0400 Body height 172.[address] Lashawn Avila DO Work Phone: [facility] 01-01-2025 12:37-0400 Body mass index (BMI) [Ratio] 33.2 kg/m2 Dr. Lashawn Avila DO Work Phone: [facility] 01-01-2025 12:37-0400 Body weight [address] Lashawn Avila DO Work Phone: [facility] 12-31-2024 15:00-0400 Heart rate 60 /min Dr. Lashawn Avila DO Work Phone: [facility] 12-31-2024 15:00-0400 Respiratory rate 18 /min Dr. Lashawn Avila DO Work Phone: [facility] 12-31-2024 15:00-0400 SaO2% (BldA) [Mass fraction] 99 % Dr. Lashawn Avila DO Work Phone: [facility] 12-31-2024 11:01-0400 Body temperature 97.5 [degF] Dr. Lashawn Avila DO Work Phone: [facility] 12-31-2024 11:01-0400 Diastolic blood pressure 78 mm[Hg] Dr. Lashawn Avila DO Work Phone: [facility] 12-31-2024 11:01-0400 Systolic blood pressure 120 mm[Hg] Dr. Lashawn Avila DO Work Phone: [facility] 12-31-2024 10:59-0400 Body height 175.[address] Lashawn Avila DO Work Phone: [facility] 12-31-2024 10:59-0400 Body mass index (BMI) [Ratio] 32 kg/m2 Dr. Lashawn Avila DO Work Phone: [facility] 12-31-2024 10:59-0400 Body weight 98.[address] Lashawn Avila DO Work Phone: [facility] 10-17-2024 13:39-0500 Body temperature 98 [degF] Dr. Lashawn Avila DO Work Phone: [facility] 10-17-2024 13:39-0500 Diastolic blood pressure 65 mm[Hg] Dr. Lashawn Avila DO Work Phone: [facility] 10-17-2024 13:39-0500 Heart rate 52 /min Dr. Lashawn Avila DO Work Phone: [facility] 10-17-2024 13:39-0500 Respiratory rate 20 /min Dr. Lashawn Avila DO Work Phone: [facility] 10-17-2024 13:39-0500 SaO2% (BldA) [Mass fraction] 97 % Dr. Lashawn Avila DO Work Phone: [facility] 10-17-2024 13:39-0500 Systolic blood pressure 103 mm[Hg] Dr. Lashawn Avila DO Work Phone: [facility] 10-17-2024 08:42-0500 Body mass index (BMI) [Ratio] 32.7 kg/m2 Dr. Lashawn Avila DO Work Phone: [facility] 10-17-2024 08:42-0500 Body weight 100.[address] Lashawn Avila DO Work Phone: [facility] 10-17-2024 08:40-0500 Body height 175.[address] Lashawn Avila DO Work Phone: [facility] 10-16-2024 16:25-0500 Body temperature 98 [degF] Dr. Lashawn Avila DO Work Phone: [facility] 10-16-2024 16:25-0500 Diastolic blood pressure 66 mm[Hg] Dr. Lashawn Avila DO Work Phone: [facility] 10-16-2024 16:25-0500 Heart rate 84 /min Dr. Lashawn Avila DO Work Phone: [facility] 10-16-2024 16:25-0500 Respiratory rate 16 /min Dr. Lashawn Avila DO Work Phone: [facility] 10-16-2024 16:25-0500 SaO2% (BldA) [Mass fraction] 97 % Dr. Lashawn Avila DO Work Phone: [facility] 10-16-2024 16:25-0500 Systolic blood pressure 127 mm[Hg] Dr. Lashawn Avila DO Work Phone: [facility] 10-16-2024 08:00-0500 Body mass index (BMI) [Ratio] 32.4 kg/m2 Dr. Lashawn Avila DO Work Phone: [facility] 10-16-2024 08:00-0500 Body weight 99.[address] Lashawn Avila DO Work Phone: [facility] 10-12-2024 01:33-0500 Diastolic Blood Pressure Non-Invasive 75 mm[Hg] DR SANDEE MILLER MD [facility] 10-12-2024 01:33-0500 Heart rate 70 /min DR SANDEE MILLER MD [facility] 10-12-2024 01:33-0500 Respiratory rate 18 /min DR SANDEE MILLER MD [facility] 10-12-2024 01:33-0500 Systolic Blood Pressure Non-Invasive 121 mm[Hg] DR SANDEE MILLER MD [facility] 10-11-2024 23:38-0500 Diastolic Blood Pressure Non-Invasive 65 mm[Hg] DR SANDEE MILLER MD [facility] 10-11-2024 23:38-0500 Heart rate 63 /min DR SANDEE MILLER MD [facility] 10-11-2024 23:38-0500 Reason For Taking VItal Signs DR SANDEE MILLER MD [facility] 10-11-2024 23:38-0500 Respiratory rate 16 /min DR SANDEE MILLER MD [facility] 10-11-2024 23:38-0500 Systolic Blood Pressure Non-Invasive 115 mm[Hg] DR SANDEE MILLER MD [facility] 10-11-2024 21:54-0500 Body temperature 98.24 [degF] DR SANDEE MILLER MD [facility] 10-11-2024 21:54-0500 Diastolic Blood Pressure Non-Invasive 54 mm[Hg] DR SANDEE MILLER MD [facility] 10-11-2024 21:54-0500 Heart rate 70 /min DR SANDEE MILLER MD [facility] 10-11-2024 21:54-0500 Respiratory rate 16 /min DR SANDEE MILLER MD [facility] 10-11-2024 21:54-0500 Systolic Blood Pressure Non-Invasive 119 mm[Hg] DR SANDEE MILLER MD [facility] 08-15-2024 17:26-0400 Diastolic Blood Pressure Non-Invasive 72 mm[Hg] LISA MAXIMO DO [facility] 08-15-2024 17:26-0400 Heart rate 72 /min LISA MAXIMO DO [facility] 08-15-2024 17:26-0400 Respiratory rate 20 /min LISA MAXIMO DO [facility] 08-15-2024 17:26-0400 Systolic Blood Pressure Non-Invasive 112 mm[Hg] LISA MAXIMO DO [facility] 08-15-2024 16:01-0400 Diastolic Blood Pressure Non-Invasive 56 mm[Hg] LISA MAXIMO DO [facility] 08-15-2024 16:01-0400 Heart rate 72 /min LISA MAXIMO DO [facility] 08-15-2024 16:01-0400 Respiratory rate 20 /min LISA MAXIMO DO [facility] 08-15-2024 16:01-0400 Systolic Blood Pressure Non-Invasive 107 mm[Hg] LISA MARSH DO [facility] 08-15-2024 14:02-0400 Body height 172.7 cm LISA MARSH DO [facility] 08-15-2024 14:02-0400 Body temperature 98.06 [degF] LISA MARSH DO [facility] 08-15-2024 14:02-0400 Body weight 97.7 kg LISA MARSH DO [facility] 08-15-2024 14:02-0400 Diastolic Blood Pressure Non-Invasive 71 mm[Hg] LISA MARSH DO [facility] 08-15-2024 14:02-0400 Heart rate 78 /min LISA MARSH DO [facility] 08-15-2024 14:02-0400 Respiratory rate 20 /min LISA MARSH DO [facility] 08-15-2024 14:02-0400 Systolic Blood Pressure Non-Invasive 124 mm[Hg] LISA MARSH DO [facility] 06-10-2024 17:22-0400 Diastolic Blood Pressure Non-Invasive 68 mm[Hg] HECTOR SCHUSTER MD [facility] 06-10-2024 17:22-0400 Heart rate 88 /min HECTOR SCHUSTER MD [facility] 06-10-2024 17:22-0400 Respiratory rate 16 /min HECTOR SCHUSTER MD [facility] 06-10-2024 17:22-0400 Systolic Blood Pressure Non-Invasive 116 mm[Hg] HECTOR SCHUSTER MD [facility] 06-10-2024 16:02-0400 Body height 172.7 cm HECTOR SCHUSTER MD [facility] 06-10-2024 16:02-0400 Body temperature 98.06 [degF] HECTOR SCHUSTER MD [facility] 06-10-2024 16:02-0400 Body weight 81.8 kg HECTOR SCHUSTER MD [facility] 06-10-2024 16:02-0400 Diastolic Blood Pressure Non-Invasive 74 mm[Hg] HECTOR SCHUSTER MD [facility] 06-10-2024 16:02-0400 Heart rate 96 /min HECTOR SCHUSTER MD [facility] 06-10-2024 16:02-0400 Respiratory rate 16 /min HECTOR SCHUSTER MD [facility] 06-10-2024 16:02-0400 Systolic Blood Pressure Non-Invasive 122 mm[Hg] HECTOR SCHUSTER MD [facility] 02-15-2024 17:30-0400 Body temperature 98.78 [degF] DR SANDEE MILLER MD [facility] 02-15-2024 16:19-0400 Body temperature 101.66 [degF] DR SANDEE MILLER MD [facility] 02-15-2024 16:19-0400 Body weight 80.[address] SANDEE MILLER MD [facility] 02-15-2024 16:19-0400 Diastolic Blood Pressure Non-Invasive 55 mm[Hg] DR SANDEE MILLER MD [facility] 02-15-2024 16:19-0400 Heart rate 99 /min DR SANDEE MILLER MD [facility] 02-15-2024 16:19-0400 Respiratory rate 18 /min DR SANDEE MILLER MD [facility] 02-15-2024 16:19-0400 Systolic Blood Pressure Non-Invasive 98 mm[Hg] DR SANDEE MILLER MD [facility] 01-03-2024 15:38-0400 Body height 172.[address] Lashawn Avila Work Phone: [facility] 01-03-2024 15:29-0400 Body mass index (BMI) [Ratio] 26.9 kg/m2 Dr. Lashawn Avila Work Phone: [facility] 01-03-2024 15:29-0400 Body weight 80.[address] Lashawn Avila Work Phone: [facility] 01-03-2024 15:29-0400 Diastolic blood pressure 80 mm[Hg] Dr. Lashawn Avila Work Phone: [facility] 01-03-2024 15:29-0400 Systolic blood pressure 128 mm[Hg] Dr. Lashawn Avila Work Phone: [facility] 11-26-2023 16:42-0500 Body temperature 98.1 [degF] Artemio Lakhani APRN.[employer] Work Phone: [facility] [place] 11-26-2023 16:42-0500 Body weight 80.2 kg Artemio Lakhani APRN.[employer] Work Phone: [facility] [place] 11-26-2023 16:42-0500 Diastolic blood pressure 76 mm[Hg] [facility] S[facility]ARD[facility].[employer] Work Phone: [facility] [place] 11-26-2023 16:42-0500 Heart rate 72 /min [facility] S[facility] BOARDER.[employer] Work Phone: [facility] [place] 11-26-2023 16:42-0500 Respiratory rate 21 /min [facility] S[facility] BOARDER.[employer] Work Phone: [facility] [place] 11-26-2023 16:42-0500 SaO2% (BldA) [Mass fraction] 98 % [facility] SOCK BOARDER.[employer] Work Phone: [facility] [place] 11-26-2023 16:42-0500 Systolic blood pressure 102 mm[Hg] [facility] SOCK BOARDER.[employer] Work Phone: [facility] [place] 11-02-2023 12:26-0500 Diastolic blood pressure 58 mm[Hg] Fitz Mudrakola DO Work Phone: [facility] [employer] 11-02-2023 12:26-0500 Heart rate 62 /min Fitz Mudrakola DO Work Phone: [facility] [employer] 11-02-2023 12:26-0500 Respiratory rate 12 /min Fitz Mudrakola DO Work Phone: [facility] 11-02-2023 12:26-0500 SaO2% (BldA) [Mass fraction] 97 % Fitz Mudrakola DO Work Phone: [facility] [employer] 11-02-2023 12:26-0500 Systolic blood pressure 100 mm[Hg] Fitz Mudrakola DO Work Phone: [facility] [employer] 11-02-2023 08:24-0500 Body temperature 98.49 [degF] Fitz Mudrakola DO Work Phone: [facility] [employer] 09-15-2023 10:43-0500 Body mass index (BMI) [Ratio] 25.8 kg/m2 Dr. Lashawn Avila Work Phone: [facility] 09-15-2023 10:43-0500 Body temperature 103.2 [degF] Dr. Lashawn Avila Work Phone: [facility] 09-15-2023 10:43-0500 Body weight 77.[address] Lashawn Avila Work Phone: [facility] 09-15-2023 10:43-0500 Diastolic blood pressure 78 mm[Hg] Dr. Lashawn Avila Work Phone: [facility] 09-15-2023 10:43-0500 Heart rate 88 /min Dr. Lashawn Avila Work Phone: [facility] 09-15-2023 10:43-0500 Respiratory rate 16 /min Dr. Lashawn Avila Work Phone: [facility] 09-15-2023 10:43-0500 SaO2% (BldA) [Mass fraction] 96 % Dr. Lashawn Avila Work Phone: [facility] 09-15-2023 10:43-0500 Systolic blood pressure 122 mm[Hg] Dr. Lashawn Avila Work Phone: [facility] 06-20-2023 12:20-0400 Body height 172.[address] Lashawn Avila Work Phone: [facility] 06-20-2023 12:20-0400 Body mass index (BMI) [Ratio] 26.9 kg/m2 Dr. Lashawn Avila Work Phone: [facility] 06-20-2023 12:20-0400 Body temperature 97 [degF] Dr. Lashawn Avila Work Phone: [facility] 06-20-2023 12:20-0400 Body weight 80.[address] Lashawn Avila Work Phone: [facility] 06-20-2023 12:20-0400 Diastolic blood pressure 88 mm[Hg] Dr. Lashawn Avila Work Phone: [facility] 06-20-2023 12:20-0400 Heart rate 60 /min Dr. Lashawn Avila Work Phone: [facility] 06-20-2023 12:20-0400 Respiratory rate 16 /min Dr. Lashawn Avila Work Phone: [facility] 06-20-2023 12:20-0400 SaO2% (BldA) [Mass fraction] 100 % Dr. Lashawn Avila Work Phone: [facility] 06-20-2023 12:20-0400 Systolic blood pressure 134 mm[Hg] Dr. Lashawn Avila Work Phone: [facility] 06-06-2023 08:50-0400 Body temperature 97.9 [degF] Haley Athy PA-C Work Phone: [facility] [place] 06-06-2023 08:50-0400 Body weight 81.47 kg Haley Athy PA-C Work Phone: [facility] [place] 06-06-2023 08:50-0400 Diastolic blood pressure 60 mm[Hg] Haley Athy PA-C Work Phone: [facility] [place] 06-06-2023 08:50-0400 Heart rate 63 /min Haley Athy PA-C Work Phone: [facility] [place] 06-06-2023 08:50-0400 Respiratory rate 21 /min Haley Athy PA-C Work Phone: [facility] [place] 06-06-2023 08:50-0400 SaO2% (BldA) [Mass fraction] 98 % Haley Athy PA-C Work Phone: [facility] [place] 06-06-2023 08:50-0400 Systolic blood pressure 104 mm[Hg] Haley Athy PA-C Work Phone: [facility] [place] 05-03-2023 14:12-0400 Body mass index (BMI) [Ratio] 27 kg/m2 Dr. Lashawn Avila Work Phone: [facility] 05-03-2023 14:12-0400 Body weight 80.[address] Lashawn Avila Work Phone: [facility] 05-03-2023 14:12-0400 Diastolic blood pressure 56 mm[Hg] Dr. Lashawn Avila Work Phone: [facility] 05-03-2023 14:12-0400 Systolic blood pressure 98 mm[Hg] Dr. Lashawn Avila Work Phone: [facility] 01-22-2023 17:54-0400 Body temperature 97.59 [degF] Dulce Maradiaga APRN.[employer] Work Phone: [facility] [place] 01-22-2023 17:54-0400 Body weight 82.74 kg Dulce Maradiaga APRN.[employer] Work Phone: [facility] [place] 01-22-2023 17:54-0400 Diastolic blood pressure 72 mm[Hg] Dulce Maradiaga APRN.[employer] Work Phone: [facility] [place] 01-22-2023 17:54-0400 Heart rate 61 /min Dulce Maradiaga APRN.[employer] Work Phone: [facility] [place] 01-22-2023 17:54-0400 Respiratory rate 21 /min Dulce Maradiaga APRN.[employer] Work Phone: [facility] [place] 01-22-2023 17:54-0400 SaO2% (BldA) [Mass fraction] 98 % Dulce Maradiaga APRN.[employer] Work Phone: [facility] [place] 01-22-2023 17:54-0400 Systolic blood pressure 100 mm[Hg] Dulce Maradiaga APRN.[employer] Work Phone: [facility] [place] 11-07-2022 07:18-0500 Body temperature 98.78 [degF] RACHEL BURRIS MD [facility] 11-07-2022 07:18-0500 Diastolic Blood Pressure Non-Invasive 61 1 RACHEL BURRIS MD [facility] 11-07-2022 07:18-0500 Heart rate 89 /min RACHEL BURRIS MD [facility] 11-07-2022 07:18-0500 Respiratory rate 18 /min RACHEL BURRIS MD [facility] 11-07-2022 07:18-0500 Systolic Blood Pressure Non-Invasive 101 1 RACHEL BURRIS MD [facility] 10-24-2022 09:46-0500 Body temperature 98.1 [degF] Krislyn Aberegg PA Work Phone: [facility] [place] 10-24-2022 09:46-0500 Body weight 78.29 kg Krislyn Aberegg PA Work Phone: [facility] [place] 10-24-2022 09:46-0500 Diastolic blood pressure 74 mm[Hg] Krislyn Aberegg PA Work Phone: [facility] [place] 10-24-2022 09:46-0500 Heart rate 95 /min Krislyn Aberegg PA Work Phone: [facility] [place] 10-24-2022 09:46-0500 Respiratory rate 16 /min Krislyn Aberegg PA Work Phone: [facility] [place] 10-24-2022 09:46-0500 SaO2% (BldA) [Mass fraction] 98 % Krislyn Aberegg PA Work Phone: [facility] [place] 10-24-2022 09:46-0500 Systolic blood pressure 128 mm[Hg] Krislyn Aberegg PA Work Phone: [facility] [place] 09-14-2022 11:36-0500 Body height 172.[address] Lashawn Avila Work Phone: [facility] Work Phone: 09-14-2022 11:29-0500 Body mass index (BMI) [Ratio] 27.1 kg/m2 Dr. Lashawn Avila Work Phone: [facility] Work Phone: 09-14-2022 11:29-0500 Body weight 80.[address] Lashawn Avila Work Phone: [facility] Work Phone: 09-14-2022 11:29-0500 Diastolic blood pressure 59 mm[Hg] Dr. Lashawn Avila Work Phone: [facility] Work Phone: 09-14-2022 11:29-0500 Systolic blood pressure 92 mm[Hg] Dr. Lashawn Avila Work Phone: [facility] Work Phone: 08-10-2022 12:40-0400 Body temperature 98.8 [degF] Dulce Maradiaga APRN.[employer] Work Phone: [facility] [place] 08-10-2022 12:40-0400 Body weight 80.2 kg Dulce Maradiaga APRN.[employer] Work Phone: [facility] [place] 08-10-2022 12:40-0400 Diastolic blood pressure 74 mm[Hg] Dulce Maradiaga APRN.[employer] Work Phone: [facility] [place] 08-10-2022 12:40-0400 Heart rate 78 /min Dulce Maradiaga APRN.[employer] Work Phone: [facility] [place] 08-10-2022 12:40-0400 Respiratory rate 18 /min Dulce Maradiaga APRN.[employer] Work Phone: [facility] [place] 08-10-2022 12:40-0400 SaO2% (BldA) [Mass fraction] 98 % Dulce Maradiaga APRN.[employer] Work Phone: [facility] [place] 08-10-2022 12:40-0400 Systolic blood pressure 120 mm[Hg] Dulce [place] APRN.ACETYLENE GAS COMPRESSOR Work Phone: [facility] [place] 07-21-2022 12:28-0400 Body mass index (BMI) [Ratio] 26.6 kg/m2 Dr. Lashawn Avila Work Phone: [facility] Work Phone: 07-21-2022 12:28-0400 Body weight 79.[address] Lashawn Avila Work Phone: [facility] Work Phone: 07-21-2022 12:28-0400 Diastolic blood pressure 78 mm[Hg] Dr. Lashawn Avila Work Phone: [facility] Work Phone: 07-21-2022 12:28-0400 Systolic blood pressure 116 mm[Hg] Dr. Lashawn Avila Work Phone: [facility] Work Phone: 06-20-2022 09:38-0400 Body mass index (BMI) [Ratio] 27.1 kg/m2 Dr. Lashawn Avila Work Phone: [facility] Work Phone: 06-20-2022 09:38-0400 Body weight 80.[address] Lashawn Avila Work Phone: [facility] Work Phone: 06-20-2022 09:38-0400 Diastolic blood pressure 82 mm[Hg] Dr. Lashawn Avila Work Phone: [facility] Work Phone: 06-20-2022 09:38-0400 Systolic blood pressure 125 mm[Hg] Dr. Lashawn Avila Work Phone: [facility] Work Phone: 06-13-2022 13:38-0400 Body temperature 98.1 [degF] Keysha Jones PA-C Work Phone: [facility] [place] 06-13-2022 13:38-0400 Body weight 82.01 kg Keysha Bogner PA-C Work Phone: [facility] [place] 06-13-2022 13:38-0400 Diastolic blood pressure 64 mm[Hg] Keysha Bogner PA-C Work Phone: [facility] [place] 06-13-2022 13:38-0400 Heart rate 62 /min Keysha Bogner PA-C Work Phone: [facility] [place] 06-13-2022 13:38-0400 Respiratory rate 18 /min Keysha Bogner PA-C Work Phone: [facility] [place] 06-13-2022 13:38-0400 SaO2% (BldA) [Mass fraction] 98 % Keysha Bogner PA-C Work Phone: [facility] [place] 06-13-2022 13:38-0400 Systolic blood pressure 128 mm[Hg] Keysha Bogner PA-C Work Phone: [facility] [place] 06-05-2022 13:14-0400 Body height 172.[address] Lashawn Avila Work Phone: [facility] Work Phone: 06-05-2022 13:11-0400 Body mass index (BMI) [Ratio] 27.2 kg/m2 Dr. Lashawn Avila Work Phone: [facility] Work Phone: 06-05-2022 13:11-0400 Body weight 81.[address] Lashawn Avila Work Phone: [facility] Work Phone: 06-05-2022 13:11-0400 Diastolic blood pressure 60 mm[Hg] Dr. Lashawn Avila Work Phone: [facility] Work Phone: 06-05-2022 13:11-0400 Systolic blood pressure 106 mm[Hg] Dr. Lashawn Avila Work Phone: [facility] Work Phone: 05-09-2022 09:22-0400 Body height 172.[address] Lashawn Avila Work Phone: [facility] Work Phone: 05-09-2022 09:16-0400 Body mass index (BMI) [Ratio] 27.1 kg/m2 Dr. Lashawn Avila Work Phone: [facility] Work Phone: 05-09-2022 09:16-0400 Body weight 80.[address] Lashawn Avila Work Phone: [facility] Work Phone: 05-09-2022 09:16-0400 Diastolic blood pressure 70 mm[Hg] Dr. Lashawn Avila Work Phone: [facility] Work Phone: 05-09-2022 09:16-0400 Systolic blood pressure 110 mm[Hg] Dr. Lashawn Avila Work Phone: [facility] Work Phone: 05-07-2022 10:38-0400 Body temperature 98.6 [degF] LESLY MIRANDAT DO [facility] 05-07-2022 10:38-0400 Diastolic blood pressure 77 mm[Hg] LESLY MIRANDAT DO [facility] 05-07-2022 10:38-0400 Heart rate 60 /min LESLY FROMMELT DO [facility] 05-07-2022 10:38-0400 Respiratory rate 18 /min LESLY FROMGISELT DO [facility] 05-07-2022 10:38-0400 Systolic blood pressure 118 mm[Hg] LESLY MIRANDAT DO [facility] 04-16-2022 16:50-0400 Body temperature 98.6 [degF] DR SANDEE MILLER MD [facility] 04-16-2022 16:50-0400 Diastolic blood pressure 70 mm[Hg] DR SANDEE MILLER MD [facility] 04-16-2022 16:50-0400 Heart rate 71 /min DR SANDEE MILLER MD [facility] 04-16-2022 16:50-0400 Respiratory rate 18 /min DR SANDEE MILLER MD [facility] 04-16-2022 16:50-0400 Systolic blood pressure 121 mm[Hg] DR SANDEE MILLER MD [facility] 01-26-2022 09:37-0400 Body height 175.3 cm LONG MOSES MD [facility] 01-26-2022 09:37-0400 Body temperature 97.88 [degF] LONG MOSES MD [facility] 01-26-2022 09:37-0400 Body weight 86.4 kg LONG MOSES MD [facility] 01-26-2022 09:37-0400 Diastolic blood pressure 66 mm[Hg] LONG MOSES MD [facility] 01-26-2022 09:37-0400 Heart rate 54 /min LONG MOSES MD [facility] 01-26-2022 09:37-0400 Respiratory rate 20 /min LONG MOSES MD [facility] 01-26-2022 09:37-0400 Systolic blood pressure 106 mm[Hg] LONG MOSES MD [facility] 04-03-2020 17:38-0400 BMI (Body Mass Index) 26.61 kg/m2 [facility] [place] 04-03-2020 17:38-0400 Body Temperature 97.59 [degF] [place] [employer] [place] 04-03-2020 17:38-0400 Body weight 79.38 kg [facility] [place] 04-03-2020 17:38-0400 BP Diastolic 68 mm[Hg] [facility] [place] 04-03-2020 17:38-0400 BP Systolic 118 mm[Hg] [facility] [place] 04-03-2020 17:38-0400 Height 172.7 cm [place] [facility] [place] 04-03-2020 17:38-0400 Pulse (Heart Rate) 63 /min [facility] [place] 04-03-2020 17:38-0400 Pulse Oximetry 100 % [facility] [place] 04-03-2020 17:38-0400 Respiratory Rate 16 /min [facility] [place] 11-18-2019 09:49-0500 BMI (Body Mass Index) 26.61 kg/m2 [employer] Work Phone: 11-18-2019 09:49-0500 Body Temperature 96.6 [degF] [employer] Work Phone: 11-18-2019 09:49-0500 Body weight 79.38 kg [employer] Work Phone: 11-18-2019 09:49-0500 BP Diastolic 70 mm[Hg] [employer] Work Phone: 11-18-2019 09:49-0500 BP Systolic 110 mm[Hg] [employer] Work Phone: 11-18-2019 09:49-0500 Pulse (Heart Rate) 70 /min [employer] Work Phone: 11-18-2019 09:49-0500 Pulse Oximetry 99 % [employer] Work Phone: 11-18-2019 09:49-0500 Respiratory Rate 16 /min [employer] Work Phone: 11-18-2019 09:48-0500 Height 172.7 cm [employer] Work Phone: 08-20-2017 15:40-0500 BMI (Body Mass Index) 30.07 kg/m2 Agustina Sinclair MD [facility] 08-20-2017 15:40-0500 Body Temperature 97.8 [degF] Agustina Sinclair MD [facility] 08-20-2017 15:40-0500 BP Diastolic 69 mm[Hg] Agustina Sinclair MD [facility] 08-20-2017 15:40-0500 BP Systolic 110 mm[Hg] Agustina Sinclair MD [facility] 08-20-2017 15:40-0500 Pulse (Heart Rate) 82 /min Agustina Sinclair MD [facility] 08-20-2017 15:40-0500 Respiratory Rate 16 /min Agustina Sinclair MD [facility] 08-20-2017 15:40-0500 Weight 89.72 kg Agustina Sinclair MD [facility] 08-14-2017 14:15-0400 BMI (Body Mass Index) 30.04 kg/m2 Agustina Sinclair MD [facility] 08-14-2017 14:15-0400 Body Temperature 98.8 [degF] Agustina Sinclair MD [facility] 08-14-2017 14:15-0400 BP Diastolic 72 mm[Hg] Agustina Sinclair MD [facility] 08-14-2017 14:15-0400 BP Systolic 112 mm[Hg] Agustina Sinclair MD [facility] 08-14-2017 14:15-0400 Pulse (Heart Rate) 86 /min Agustina Sinclair MD [facility] 08-14-2017 14:15-0400 Respiratory Rate 16 /min Agustina Sinclair MD [facility] 08-14-2017 14:15-0400 Weight 89.63 kg Agustina Sinclair MD [facility] 08-06-2017 15:32-0400 BMI (Body Mass Index) 29.8 kg/m2 Nathaly Olmedo PHOTOGRAPHER FINISH [facility] 08-06-2017 15:32-0400 Body Temperature 97.8 [degF] Nathaly [place] PHOTOGRAPHER FINISH [facility] 08-06-2017 15:32-0400 BP Diastolic 69 mm[Hg] Nathaly [place] PHOTOGRAPHER FINISH [facility] 08-06-2017 15:32-0400 BP Systolic 109 mm[Hg] Nathaly Shara PHOTOGRAPHER FINISH [facility] 08-06-2017 15:32-0400 Pulse (Heart Rate) 73 /min Nathaly Shara PHOTOGRAPHER FINISH [facility] 08-06-2017 15:32-0400 Respiratory Rate 16 /min Nathaly Shara PHOTOGRAPHER FINISH [facility] 08-06-2017 15:32-0400 Weight 88.91 kg Nathaly [place] PHOTOGRAPHER FINISH [facility] 07-30-2017 16:15-0400 BMI (Body Mass Index) 29.59 kg/m2 Agustina Sinclair MD [facility] 07-30-2017 16:15-0400 Body Temperature 97.4 [degF] Agustina Sinclair MD [facility] 07-30-2017 16:15-0400 BP Diastolic 66 mm[Hg] Agustina Sinclair MD [facility] 07-30-2017 16:15-0400 BP Systolic 123 mm[Hg] Agustina Sinclair MD [facility] 07-30-2017 16:15-0400 Pulse (Heart Rate) 90 /min Agustina Sinclair MD [facility] 07-30-2017 16:15-0400 Respiratory Rate 16 /min Agustina Sinclair MD [facility] 07-30-2017 16:15-0400 Weight 88.27 kg Agustina Sinclair MD [facility] 07-16-2017 15:50-0400 BMI (Body Mass Index) 28.92 kg/m2 Agustina Sinclair MD [facility] 07-16-2017 15:50-0400 Body Temperature 97.6 [degF] Agustina Sinclair MD [facility] 07-16-2017 15:50-0400 BP Diastolic 64 mm[Hg] Agustina Sinclair MD [facility] 07-16-2017 15:50-0400 BP Systolic 105 mm[Hg] Agustina Sinclair MD [facility] 07-16-2017 15:50-0400 Pulse (Heart Rate) 72 /min Agustina Sinclair MD [facility] 07-16-2017 15:50-0400 Respiratory Rate 16 /min Agustina Sinclair MD [facility] 07-16-2017 15:50-0400 Weight 86.27 kg Agustina Sinclair MD [facility] 07-02-2017 16:17-0400 BMI (Body Mass Index) 28.43 kg/m2 Agustina Sinclair MD [facility] 07-02-2017 16:17-0400 Body Temperature 97.3 [degF] Agustina Sinclair MD [facility] 07-02-2017 16:17-0400 BP Diastolic 72 mm[Hg] Agustina Sinclair MD [facility] 07-02-2017 16:17-0400 BP Systolic 108 mm[Hg] Agustina Sinclair MD [facility] 07-02-2017 16:17-0400 Height 172.72 cm Agustina Sinclair MD [facility] 07-02-2017 16:17-0400 Pulse (Heart Rate) 82 /min Agustina Sinclair MD [facility] 07-02-2017 16:17-0400 Respiratory Rate 16 /min Agustina Sinclair MD [facility] 07-02-2017 16:17-0400 Weight 84.82 kg Agustina Sinclair MD [facility] Encounters Encounter Date Encounter Type Care Provider Facility Start: 05-27-2025 End: 05-27-2025 Patient encounter procedure Nathaly ORTIZ -[facility] Work Phone: Start: 05-27-2025 End: 05-27-2025 ambulatory Lashawn Avila Facility:[facility] Start: 05-20-2025 End: 05-20-2025 ambulatory LASHAWN GORMANUTZMAN Facility:[facility] Start: 04-14-2025 End: 04-14-2025 Emergency department patient visit DR JOSE E MORALES DO [facility] Start: 04-14-2025 Non-patient / Non-visit Dr. Brittany pascual MD -[facility] Work Phone: Start: 03-11-2025 End: 03-11-[address] Lashawn Avila DO Work Phone: [facility] Work Phone: Start: 03-11-2025 End: 03-11-[address] Lashawn Avila DO -Laboratory Specimen Work Phone: Start: 03-11-2025 End: 03-11-2025 ambulatory Lashawn Colladoman Facility:[facility] Start: 02-12-2025 End: 02-12-2025 Emergency department patient visit Dr. Deacon Le MD -Emergency Department Work Phone: Start: 01-21-2025 End: 01-21-[address] Lashawn Avila DO Work Phone: [facility] Work Phone: Start: 01-21-2025 End: 01-21-[address] Brittany Rodriguez MD -Radiology, [place] Work Phone: Start: 01-21-2025 End: 01-21-2025 ambulatory [facility] Facility:[facility] Start: 01-01-2025 End: 01-01-2025 Admission to same day surgery center Dr. Brittany Rodriguez MD -[facility] Start: 01-01-2025 End: 01-01-[address] Lashawn Avila DO Work Phone: [facility] Work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 M/mm3 (4.2-5.4) 10/17/24 09:10 10/17/24 Hgb 12.9 g/dL (12.0-15.0) 10/17/24 09:10 10/17/24 Hct 37.8 % (37-47) 10/17/24 09:10 10/17/24 Plt Count 333 K/mm3 (150-450) 10/17/24 09:10 10/17/24 CHEMISTRY Potassium 4.3 mmol/L (3.5-5.1) 10/17/24 09:10 10/17/24 Sodium 137 mmol/L (136-145) 10/17/24 09:10 10/17/24 BUN 13 mg/dL (7-18) 10/17/24 09:10 10/17/24 Creatinine 1.07 mg/dL (0.55-1.02) H 10/17/24 09:10 Glucose 130 mg/dL (74-106) H 10/17/24 09:10 10/17/24 TSH 0.497 uIU/mL (0.358-3.740) 06/23/24 14:18 09/0 07/08 COAG HCG, Quant 9361 mIU/mL (1-3) H 09/21/20 13:15 09/21/20 Urine Test Negative Negative 01/01/25 12:25 01/01/25 Tst Clinic Negative 06/22/22 09:00 06/22/22 Pre-Assessment Diagnosis/Proposed Procedure Planned Operative Procedure(s): (R) right renal ESWL Anesthesia History Anesthesia History - lpta: Anesthesia History - lpta Hx Hospitalization No 12/31/24 09:17 Any Problems With Anesthesia No 12/31/24 09:17 Cholinesterase deficiency No 12/31/24 09:17 You/Your Family Experience No 12/31/24 09:17 fever (hyperthermia) with Relationship Recent Exposure to Contagious No 01/01/25 12:37 Disease Does patient have nerve No 12/31/24 09:17 stimulator Patient instructed to have device shut off --Does patient have Pacemaker No 01/01/25 12:37 or ICD? When Was Last Pacemaker Check QUESTION #4 FULL TEXT: You/Your Family Experience fever (hyperthermia) with Anesthesia Last Oral Intake Last Oral intake: Last Oral Intake NPO since 00:00 01/01/25 12:37 Meds taken in AM with sips of water? Meds patient instructed to take am of surgery PONV PONV - lpta: PONV - lpta Female Yes 12/31/24 09:17 HX of Motion Sickness No 12/31/24 09:17 HX of N/V After Surgery No 12/31/24 09:17 Non-Smoker No 12/31/24 09:17 Duration of Surgery greater No 12/31/24 09:17 than 60 minutes Number of Risk Factors 1 12/31/24 09:17 PONV Score Low Risk 12/31/24 09:17 Height & Weight Height & Weight: Anesthesia: Height & Weight Height 5 ft 8 in 01/01/25 12:37 Weight: 99 kg 01/01/25 12:37 Body Mass Index (BMI) 33.2 01/01/25 12:37 Respiratory Assessment Respiratory Assessment - lpta: Respiratory Tract Infection Hx - lpta Hx Respiratory Tract Infection No 12/31/24 09:17 STOP Sleep Apnea STOP Sleep Apnea - lpta: STOP Sleep Apnea - lpta Hx Hypertension No 12/31/24 09:17 Hx Sleep Apnea No 12/31/24 09:17 CPAP BIPAP Do you snore loudly (louder No 12/31/24 09:17 than talking or can be heard Do you often feel tired/ No 12/31/24 09:17 fatigued/ sleepy during daytime? Has anyone observed you stop No 12/31/24 09:17 breathing during sleep? STOP Results Negative 12/31/24 09:17 QUESTION #5 FULL TEXT : Do you snore loudly (louder than talking or can be heard through closeddoors)? Tobacco Use History Tobacco Use History - lpta: Tobacco Use History - lpta Tobacco Use Smoking Status Current every day smoker 12/31/24 09:17 Hx Tobacco Use Yes 12/31/24 09:17 Years Smoking Packs Smoked per Day Smoking Cessation Date was within the last 15 years Hx Smoking Cessation Date Hx Smoking Cessation Counseling Any additional information?: Yes Smoking Status: Current every day smoker (Patient did smoke today.) Hematologic Medial History Hematologic Hx - lpta: Hematologic Medical Hx - resident care associate Hx of Blood Transfusion No 12/31/24 09:17 Hx of Transfusion in last 3 No 12/31/24 09:17 Months Date of Last Transfusion (if within last 3 months) Ever experience any problems No 12/31/24 09:17 with transfusion(s)? Specify any problems Hx of Preganancy in last 3 No 12/31/24 09:17 Months Nurse Filling Out Transfusion VCHRISTIN 12/31/24 09:17 & Questions: Date: 12/31/24 12/31/24 09:17 Time: 09:18 12/31/24 09:17 Patient unable to answer at this time (ie. confused, unrespo /Reproduction History /Reproductive History - lpta: /Reproductive Hx- lpta Hx Now No 12/31/24 09:17 Gestational Age (in weeks): EDC: Hx Hx Para Hx Section SAB No 12/31/24 09:17 Active Medications Active Medications: Current Medications Generic Name Dose Route Start Last Admin Trade Name Freq PRN Reason Stop Dose Admin Ciprofloxacin 400 mg in 200 mls @ 200 mls/hr 01/01/25 13:40 Cipro IV 01/01/25 14:39 PREOP ONE Sodium Chloride 1,000 mls @ 15 mls/hr 01/01/25 12:35 01/01/25 12:53 IV 15 mls/hr .Q48H JANESSA Administration PFSH Medical History Depression Kidney stones Back pain Gastric reflux Smoker delivery delivered Sterilization H/O shoulder dystocia in prior , currently 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 , currently Genital herpes OCD (obsessive compulsive disorder) Anxiety Home Medications ?Medication ?Instructions ?Recorded ?Last Taken ?Type bupropion HCl 150 mg tablet,12 hr 150 mg PO QDAY depre ssion 07/16/24 Unknown History sustained-release (Wellbutrin SR) lorazepam 1 mg tablet 1 mg PO BID PRN PRN anxiety 10/14/24 Unknown History ondansetron 8 mg disintegrating 8 mg PO Q8H PRN nausea and 10/16/24 Unknown Rx tablet vomiting #10 tabs acyclovir 400 mg tablet See Rx Instructions .Route 0 12/12/24 Unknown Rx .COMPLEX herpes #60 tabs citalopram 40 mg tablet 40 mg PO DAILY 12/31/24 Unkn own History oxycodone-acetaminophen 5 mg-325 1 tab PO Q6H PRN pain 1 day #4 tabs 12/31/24 Unknown Rx mg tablet (Endocet) tamsulosin 0.4 mg capsule (Flomax) 0.4 mg PO DAILY 14 days #14 caps 12/31/24 Unknown Rx Allergy/AdvReac Type Severity Reaction Status Date / Time amoxicillin (Amoxicillin) Allergy Rash Verified 01/01/25 12:36 Penicillins Allergy Rash Verified 01/01/25 12:36 Surgical History Hx of cystoscopy H/O foot surgery H/O dilation and curettage Social History adopted: No household members: family housing: house number of children: 3 current occupational status: employed current occupation: [employer] pets and animals: Yes Smoking Status: Current every day smoker tobacco type: cigarettes second hand exposure: No alcohol intake: current details: social- not while substance use type: does not use seatbelt use: always do you feel safe at home: Yes additional social history: Spouse: Ashon- student ([employer]- 6, Ashon-11) Review of Systems (Anesthesia) ROS Narrative System reviewed and no additional complaints, except as documented. 01/01/25 1339 kim RAMIREZ> Date _ Lito Moralez MD Cosigner Signature: Date CC: ~ Signed [facility]03-19-2025 Discharge summary [facility] Medical Records Department [address] [place] [address] Emergency Department Summary 12/31/24 MR#: [id number] Acct: [id number] Name: PENNIE KOENIG Rep #:[id number] : 1995 29 From: Roly Zabala DO PCP: Dr. Lashawn Avila DO Status:REG ER Location: ED HPI History of Present Illness Chief Complaint: Flank Pain Narrative Narrative: Patient is a 29-year-old female with a past medical history of depression, GERD,anxiety, OCD who presents to the emergency department with concern for a kidney stone. Patient states that she is having right flank pain and notes that she was up all night in pain. States that she had a few pain pillsremaining from aprevious ER visit as well as Zofran that she was taking but states that she is currently out of the pain pills. She states that she has a lithotripsy scheduled tomorrow with Dr. Rodriguez. Patient denies any recent sick contacts. 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 , currently Genital herpes OCD (obsessive compulsive disorder) Anxiety Home Medications ?Medication ?Instructions ?Recorded ?Last Taken ?Type bupropion HCl 150 mg tablet,12 hr 150 mg PO QDAY depre ssion 07/16/24 Unknown History sustained-release (Wellbutrin SR) lorazepam 1 mg tablet 1 mg PO BID PRN PRN anxiety 10/14/24 Unknown History ondansetron 8 mg disintegrating 8 mg PO Q8H PRN nausea and 10/16/24 Unknown Rx tablet vomiting #10 tabs acyclovir 400 mg tablet See Rx Instructions .Route 0 12/12/24 Unknown Rx .COMPLEX herpes #60 tabs citalopram 40 mg tablet 40 mg PO DAILY 12/31/24 Unkn own History oxycodone-acetaminophen 5 mg-325 1 tab PO Q6H PRN pain 1 day #4 tabs 12/31/24 Unknown Rx mg tablet (Endocet) tamsulosin 0.4 mg capsule (Flomax) 0.4 mg PO DAILY 14 days #14 caps 12/31/24 Unknown Rx Allergy/AdvReac Type Severity Reaction Status Date / Time amoxicillin (Amoxicillin) Allergy Rash Verified 12/31/24 11:10 Penicillins Allergy Rash Verified 12/31/24 11:10 Surgical History Hx of cystoscopy H/O foot surgery H/O dilation and curettage Social History adopted: No household members: family housing: house number of children: 3 current occupational status: employed current occupation: [employer] pets and animals: Yes Smoking Status: Current every day smoker tobacco type: cigarettes second hand exposure: No alcohol intake: current details: social- not while substance use type: does not use seatbelt use: always do you feel safe at home: Yes additional social history: Spouse: Ashon- student ([employer]- 6, Wes-11) ROS ROS ED ROS Narrative Constitutional: Denies fevers, chills, headaches, lightness, dizziness Abdomen: Complains of right lower abdominal pain as noted above as well as nausea vomiting denies diarrhea : Denies urinary symptoms complains of concern for kidney stone as noted above Neurological: Denies numbness, weakness, tingling Musculoskeletal: Complains of right flank pain as noted above Skin: Denies rashes or lesions EXAM Physical Exam Narrative Exam Narrative: General: Patient lying in bed rest comfortably did not appear to be in acute distress Head: Atraumatic, normocephalic Eyes: PERRL bilaterally, EOMI bilateral, no conjunctival injection noted Neck: Soft, supple, trachea midline Cardiovascular: Regular rate and rhythm no murmurs gallops rubs noted Respiratory: Clear to auscultation bilaterally Abdomen: Soft, nondistended, mild tenderness to palpation in the right side of her abdomen no rebound or guarding on exam Musculoskeletal: No CVA tenderness on exam, no tenderness palpation midline of the thoracic lumbar spine Extremities: +5/5 strength in bilateral upper and lower extremities Neurological: Patient follow commands knew that she was at [facility] years 2024 Skin: Warm, dry, intact no rashes or lesions noted Const Vital Signs: 12/31/24 10:59 12/31/24 11:01 12/31/24 13:00 Temperature 97.5 F L 97.5 F L Temperature Source Oral Oral Pulse Rate 103 H 103 H 57 L Respiratory Rate 15 15 20 H Blood Pressure 120/78 120/78 Blood Pressure Mean 92 92 Pulse Ox 99 99 99 Oxygen Delivery Method Room Air Room Air Room Air MDM MDM MDM Narrative Medical decision making narrative: Patient is a 29-year-old female who presents to the emergency department the chief complaint of right flank pain radiating to her right portion of her abdomen. On the differential diagnose includes Melamin to UTI, pyelonephritis, urolithiasis, nephrolithiasis. Once workup is obtained and reviewed she will bereevaluated. Patient was given Toradol I reached out to Dr. Rodriguez who states she is very well aware of this patient and states that in the past she admitted to the hospital and notes that she was requesting pain medication throughout the night and notes that since she would not prescribe her pain medication outpatient setting she came to the emergency department to be evaluated. She states that she will notadmit the patient without a CT scan if this is necessary. I discussion with her and states that if we get her pain under control she can go home. Reevaluate the patient and she was still having pain therefore she was given morphine Zofran I added a CT abdomen pelvis without IV contrast on. Patient CT abdomen pelvis without IV contrast reviewed and did show a 2 mm calculus seen at the left ureterovesicular junction. I reach back out to Dr. Rodriguez and discussed this result with her she states that she can go home and follow-up with her tomorrow for lithotripsy. Patient wasadvised to take prescriptions as prescribed and do not operate anything under the influence of the narcotic. She is encouraged return with worsening symptomsor concerns. She is agreeable this plan all question concerns answered she is discharged home in stable condition Lab Data Labs: Laboratory Results - last 24 hr 12/31/24 11:07 Urine Color Yellow Urine Clarity Sl. Cloudy Urine pH 8.0 Ur Specific [place] 1.010 Urine Protein 15 H Urine Glucose (UA) Normal Urine Ketones Negative Urine Occult Blood Negative Urine Nitrite Negative Urine Bilirubin Negative Urine Urobilinogen Normal Ur Leukocyte Esterase 25 H Urine RBC 0 SEEN Urine WBC 0-5 SEEN Ur Squamous Epith Cells 5-10 SEEN Urine Bacteria 0 SEEN Urine Mucus 0 SEEN Urine Test Negative Radiography Diagnostic Testing: Clinical Impression(s) from Imaging Studies Abdomen/Pelvis CT 12/31/24 13:25 IMPRESSION: 1. Approximately 2 mm calculus seen at or near the left ureterovesicular junction. 2. No significant hydronephrosis. Reading Location: [address] Discharge Plan Triage Chief Complaint: Flank Pain ED Provider: Roly Zabala Dx/Rx/DC Orders Clinical Impression: Flank pain, Urolithiasis Prescriptions: New tamsulosin [Flomax] 0.4 mg capsule 0.4 mg PO DAILY 14 Days Qty: 14 0RF oxycodone-acetaminophen [Endocet] 5-325 mg tablet 1 tab PO Q6H PRN (Reason: pain) 1 Days Qty: 4 0RF No Action bupropion HCl [Wellbutrin SR] 150 mg tablet sustained-release 12 hr 150 mg PO QDAY lorazepam 1 mg tablet 1 mg PO BID PRN PRN (Reason: anxiety) ondansetron 8 mg tablet,disintegrating 8 mg PO Q8H PRN (Reason: nausea and vomiting) Qty: 10 0RF citalopram 40 mg tablet 40 mg PO DAILY acyclovir 400 mg tablet See Rx Instructions .ROUTE .COMPLEX Qty: 60 12RF Dose Instruction: take 1 tablet by mouth twice a day Rx Instructions: take 1 tablet by mouth twice a day Primary Care Provider: Lashawn Avila Referrals: Lashawn Avila DO [Primary Care Provider] - Activity Restrictions/Additional Instructions: Follow-up tomorrow for your procedure. Use prescriptions as prescribed take Zofran with the Endocetas this will make your stomach upset. Do not operate anything under the influence of this medication. You should use ibuprofen for mild to moderate pain and use that for severe pain. Return with worsening symptoms or concerns. Print Language: Bahamian Disposition Disposition: Home, Self Care What to do if you have Problems For any increased pain, shortness of breath, bleeding, nausea or vomiting, chestpain, or any unexpected problems, contact your Primary Care Provider. Call [facility] ([phone]) or report tothe closest Emergency Room. Call 911 if necessary. 12/31/24 1437 Cosigner Signature (if applicable): CC: Dr. Lashawn Avila DO ~ Signed [facility]03-19-2025 Discharge summary Author Roly Zabala [facility] Note Date/Time December 31, 2024 2:3 7pm [facility] Medical Records Department [address] [place] [address] Emergency Department Summary 12/31/24 MR#: [id number] Acct: [id number] Name: MANUELPENNIE DANG Rep #:[id number] : 1995 29 From: Roly Zabala DO PCP: Dr. Lashawn Avila, Status:REG ER Location: ED HPI History of Present Illness Chief Complaint: Flank Pain Narrative Narrative: Patient is a 29-year-old female with a past medical history of depression, GERD,anxiety, OCD who presents to the emergency department with concern for a kidney stone. Patient states that she is having right flank pain and notes that she was up all night in pain. States that she had a few pain pills remaining from aprevious ER visit as well as Zofran that she was taking but states that she is currently out of the pain pills. She states that she has a lithotripsy scheduled tomorrow with Dr. Rodriguez. Patient denies any recent sick contacts. 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 , currently Genital herpes OCD (obsessive compulsive disorder) Anxiety Home Medications ?Medication ?Instructions ?Recorded ?Last Taken ?Type bupropion HCl 150 mg tablet,12 hr 150 mg PO QDAY depre ssion 07/16/24 Unknown History sustained-release (Wellbutrin SR) lorazepam 1 mg tablet 1 mg PO BID PRN PRN anxiety 10/14/24 Unknown History ondansetron 8 mg disintegrating 8 mg PO Q8H PRN nausea and 10/16/24 Unknown Rx tablet vomiting #10 tabs acyclovir 400 mg tablet See Rx Instructions .Route 0 12/12/24 Unknown Rx .COMPLEX herpes #60 tabs citalopram 40 mg tablet 40 mg PO DAILY 12/31/24 Unkn own History oxycodone-acetaminophen 5 mg-325 1 tab PO Q6H PRN pain 1 day #4 tabs 12/31/24 Unknown Rx mg tablet (Endocet) tamsulosin 0.4 mg capsule (Flomax) 0.4 mg PO DAILY 14 days #14 caps 12/31/24 Unknown Rx Allergy/AdvReac Type Severity Reaction Status Date / Time amoxicillin (Amoxicillin) Allergy Rash Verified 12/31/24 11:10 Penicillins Allergy Rash Verified 12/31/24 11:10 Surgical History Hx of cystoscopy H/O foot surgery H/O dilation and curettage Social History adopted: No household members: family housing: house number of children: 3 current occupational status: employed current occupation: [employer] pets and animals: Yes Smoking Status: Current every day smoker tobacco type: cigarettes second hand exposure: No alcohol intake: current details: social- not while substance use type: does not use seatbelt use: always do you feel safe at home: Yes additional social history: Spouse: Ashon- student ([employer]- 6, Ashdonna-11) ROS ROS ED ROS Narrative Constitutional: Denies fevers, chills, headaches, lightness, dizziness Abdomen: Complains of right lower abdominal pain as noted above as well as nausea vomiting denies diarrhea : Denies urinary symptoms complains of concern for kidney stone as noted above Neurological: Denies numbness, weakness, tingling Musculoskeletal: Complains of right flank pain as noted above Skin: Denies rashes or lesions EXAM Physical Exam Narrative Exam Narrative: General: Patient lying in bed rest comfortably did not appear to be in acute distress Head: Atraumatic, normocephalic Eyes: PERRL bilaterally, EOMI bilateral, no conjunctival injection noted Neck: Soft, supple, trachea midline Cardiovascular: Regular rate and rhythm no murmurs gallops rubs noted Respiratory: Clear to auscultation bilaterally Abdomen: Soft, nondistended, mild tenderness to palpation in the right side of her abdomen no rebound or guarding on exam Musculoskeletal: No CVA tenderness on exam, no tenderness palpation midline of the thoracic lumbar spine Extremities: +5/5 strength in bilateral upper and lower extremities Neurological: Patient follow commands knew that she was at [facility] years 2024 Skin: Warm, dry, intact no rashes or lesions noted Const Vital Signs: 12/31/24 10:59 12/31/24 11:01 12/31/24 13:00 Temperature 97.5 F L 97.5 F L Temperature Source Oral Oral Pulse Rate 103 H 103 H 57 L Respiratory Rate 15 15 20 H Blood Pressure 120/78 120/78 Blood Pressure Mean 92 92 Pulse Ox 99 99 99 Oxygen Delivery Method Room Air Room Air Room Air MDM MDM MDM Narrative Medical decision making narrative: Patient is a 29-year-old female who presents to the emergency department the chief complaint of right flank pain radiating to her right portion of her abdomen. On the differential diagnose includes Melamin to UTI, pyelonephritis, urolithiasis, nephrolithiasis. Once workup is obtained and reviewed she will bereevaluated. Patient was given Toradol I reached out to Dr. Rodriguez who states she is very well aware of this patient and states that in the past she admitted to the hospital and notes that she was requesting pain medication throughout the night and notes that since she would not prescribe her pain medication outpatient setting she came to the emergency department to be evaluated. She states that she will not admit the patient without a CT scan if this is necessary. I discussion with her and states that if we get her pain under control she can go home. Reevaluate the patient and she was still having pain therefore she was given morphine Zofran I added a CT abdomen pelvis without IV contrast on. Patient CT abdomen pelvis without IV contrast reviewed and did show a 2 mm calculus seen at the left ureterovesicular junction. I reach back out to Dr. Rodriguez and discussed this result with her she states that she can go home and follow-up with her tomorrow for lithotripsy. Patient wasadvised to take prescriptions as prescribed and do not operate anything under the influence of the narcotic. She is encouraged return with worsening symptomsor concerns. She is agreeable this plan all question concerns answered she is discharged home in stable condition Lab Data Labs: Laboratory Results - last 24 hr 12/31/24 11:07 Urine Color Yellow Urine Clarity Sl. Cloudy Urine pH 8.0 Ur Specific [place] 1.010 Urine Protein 15 H Urine Glucose (UA) Normal Urine Ketones Negative Urine Occult Blood Negative Urine Nitrite Negative Urine Bilirubin Negative Urine Urobilinogen Normal Ur Leukocyte Esterase 25 H Urine RBC 0 SEEN Urine WBC 0-5 SEEN Ur Squamous Epith Cells 5-10 SEEN Urine Bacteria 0 SEEN Urine Mucus 0 SEEN Urine Test Negative Radiography Diagnostic Testing: Clinical Impression(s) from Imaging Studies Abdomen/Pelvis CT 12/31/24 13:25 IMPRESSION: 1. Approximately 2 mm calculus seen at or near the left ureterovesicular junction. 2. No significant hydronephrosis. Reading Location: [address] Discharge Plan Triage Chief Complaint: Flank Pain ED Provider: Roly Zabala Dx/Rx/DC Orders Clinical Impression: Flank pain, Urolithiasis Prescriptions: New tamsulosin [Flomax] 0.4 mg capsule 0.4 mg PO DAILY 14 Days Qty: 14 0RF oxycodone-acetaminophen [Endocet] 5-325 mg tablet 1 tab PO Q6H PRN (Reason: pain) 1 Days Qty: 4 0RF No Action bupropion HCl [Wellbutrin SR] 150 mg tablet sustained-release 12 hr 150 mg PO QDAY lorazepam 1 mg tablet 1 mg PO BID PRN PRN (Reason: anxiety) ondansetron 8 mg tablet,disintegrating 8 mg PO Q8H PRN (Reason: nausea and vomiting) Qty: 10 0RF citalopram 40 mg tablet 40 mg PO DAILY acyclovir 400 mg tablet See Rx Instructions .ROUTE .COMPLEX Qty: 60 12RF Dose Instruction: take 1 tablet by mouth twice a day Rx Instructions: take 1 tablet by mouth twice a day Primary Care Provider: Lashawn Avila Referrals: Lashawn Avila DO [Primary Care Provider] - Activity Restrictions/Additional Instructions: Follow-up tomorrow for your procedure. Use prescriptions as prescribed take Zofran with the Endocet as this will make your stomach upset. Do not operate anything under the influence of this medication. You should use ibuprofen for mild to moderate pain and use that for severe pain. Return with worsening symptoms or concerns. Print Language: Bahamian Disposition Disposition: Home, Self Care What to do if you have Problems For any increased pain, shortness of breath, bleeding, nausea or vomiting, chestpain, or any unexpected problems, contact your Primary Care Provider. Call [facility] ([phone]) or report to the closest Emergency Room. Call 911 if necessary. 12/31/24 1437 <Electronically signed by Roly Zabala DO> Cosigner Signature (if applicable): CC: Dr. Lashawn Avila DO ~ Signed [facility] Work Phone: [phone]) 230-854103-19-2025 Radiology Diagnostic study note [facility] Imaging Services [address] [place] [address] Abdomen/Pelvis without Cont MR#: [id number] Acct: [id number] Name: PENNIE KOENIG Rep #: [id number] : 1995 F 29 From: Felipe Sousa MD PCP: Dr. Lashawn Avila DO Status: REG ER Study:Abdomen/Pelvis without Cont Date of Exa m: 12/31/24 Exam# [id number] Ordering Dr: López Zabala DO PROCEDURE: ABDOMEN/PELVIS WITHOUT CONT 12/31/2024 REASON FOR EXAM: FLANK PAIN, HX OF STONES TECHNIQUE: Abdomen and pelvis CT without intravenous contrast. Coronal and Sagittal reconstruction series wereprovided. One or more dose reduction techniques were used (e.g., Automated exposure control, adjustment of the mA and/or kV according to patient size, use of iterative reconstruction technique). ORAL CONTRAST TYPE: None. DLP 626.6 mGy-cm. CTD 11.77mGy. COMPARISON: Abdomen and pelvis CT of 10/17/2024. FINDINGS: The visualized lung bases are unremarkable. Bilateral breast prostheses are again partially visualized. Pelvic and lower abdominal metallic densities are again present, most likely representing surgical clips. No evidence of abdominal aortic aneurysm. Stable right mid renal calculus. No left renal calculus is seen. No evidence of hydronephrosis or significant hydroureter. An approximately 2 mm calculus is seen at or near the left ureterovesicular junction. No free fluid is seen. No evidence of pneumoperitoneum. The liver, gallbladder, pancreas, spleen, and adrenal glands show no abnormality. No adenopathy is seen. The urinary bladder is distended. CT/Abdomen/Pelvis without Cont IMPRESSION: 1. Approximately 2 mm calculus seen at or near the left ureterovesicular junction. 2. No significant hydronephrosis. Reading Location: [address] CC: Dr. Lashawn Avila DO; Dr. Roly Zabala DO ~ Travel Ot: Signed [facility]01-02-2025 [facility] Medical Records Department [address] [place] [id number] History Physical Exam 10/16/24 1015 MR#: [id number] Acct: [id number] Name: PENNIE KOENIG Rep #: [id number] : 1995 29 From: Brittany Rodriguez MD PCP: Dr. Lashawn Avila, DO Status:ADM CHRISTIAN Location: [facility] SL512-2 HPI - General General Date of Admission: 10/15/24 Date of Service: 10/16/24 Chief Complaint: Left flank pain, nausea HPI Narrative PENNIE KOENIG, is a 29 F with a 8 mm left renal stone who presented to the emergency room yesterday with uncontrolled left flank pain and nausea. She denies fever, chills and vomiting. There is no evidence of urinary tract infection with no dysuria, urgency, frequency. She is already on the schedule for shockwave lithotripsy today and agrees to proceed. Informed consent has been obtained. She is continuing to have pain at this time as well as nausea. [facility] Medical History (Updated 10/16/24 @ 10:[address] 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 , currently Genital herpes OCD (obsessive compulsive disorder) Anxiety Home Medications ???Medication ???Instructions ???Recorded ???Last Taken ???Type citalopram 20 mg tablet 20 mg PO DAILY depression 10/31/19 03/01/21 10:00 History 20 mg acyclovir 400 mg tablet See Rx Instructions .Route 05/26/24 Unknown Rx .COMPLEX herpes #60 tabs bupropion HCl 150 mg tablet,12 hr 150 mg PO QDAY depression 07/16/24 Unknown History sustained-release (Wellbutrin SR) ciprofloxacin HCl 250 mg tablet 250 mg PO BID atb 10/14/24 Unknown History (Cipro) lorazepam 1 mg tablet 1 mg PO BID PRN PRN anxiety 10/14/24 Unknown History spironolactone 100 mg tablet 100 mg PO DAILY acne 10/14/24 Unknown History Allergy/AdvReac Type Severity Reaction Status Date / Time amoxicillin (Amoxicillin) Allergy Rash Verified 10/15/24 16:44 Penicillins Allergy Rash Verified 10/15/24 16:44 Surgical History H/O foot surgery H/O dilation and curettage Social History adopted: No household members: family housing: house number of children: 3 current occupational status: employed current occupation: [employer] pets and animals: Yes Smoking Status: Current every day smoker tobacco type: cigarettes second hand exposure: No alcohol intake: current details: social- not while substance use type: does not use seatbelt use: always do you feel safe at home: Yes additional social history: Spouse: Ashon- student ([employer]- 6, Wes-11) ROS Constitutional Constitutional: Denies body ache(s), chills or fever(s) Eyes Eyes: Reports systems reviewed and no addt'l complaints, except as documented ENT HEENT: Reports systems reviewed and no addt'l complaints, except as documented Cardiovascular Cardiovascular: Reports systems reviewed and no addt'l complaints, except as documented and nausea; Denies abdominal pain, chest pain or vomiting Respiratory/Chest Respiratory/Chest: Reports systems reviewed and no addt'l complaints, except as documented; Denies chest tightness, cough or dyspnea Gastrointestinal Gastrointestinal: Reports nausea; Denies abdominal pain or vomiting Genitourinary Genitourinary: Reports flank pain; Denies difficulty urinating, dysuria or urinary urgency Musculoskeletal Musculoskeletal: Reports back pain Integumentary Integumentary: Reports systems reviewed and no addt'l complaints, except as documented Neurologic Neurologic: Reports systems reviewed and no addt'l complaints, except as documented Psychiatric Psychiatric: Reports systems reviewed and no addt'l complaints, except as documented Endocrine Endocrinology: Reports systems reviewed and no addt'l complaints, except as documented Hematologic/Lymphatic Hematologic/Lymphatic: Reports systems reviewed and no addt'l complaints, except as documented Allergic/Immunologic Allergic/Immunologic: Reports systems reviewed and no addt'l complaints, except as documented Vital Signs Vital Signs Vital Signs: 10/15/24 16:44 10/15/24 18:43 10/15/24 18:53 Temperature 96.7 F L Temperature Source Temporal Pulse Rate 68 70 Pulse Strength Respiratory Rate 18 18 Respiratory Effort Respiratory Depth Respiratory Pattern Blood Pressure 113/70 123/81 H Blood Pressure Mean 84 95 Blood Pressure Source Blood Pressure Position Blood Pressure Location Pulse Ox 99 99 Oxygen Delivery Method Room Air Room Air 10/15/24 20:00 10/15/24 20:33 10/15/24 21:20 Temperature 98 F (more content not included)...[facility]01-01-2025 Evaluation note* Diagnosis Onset Date Resolution Status Admit Date Flank pain acute October 15 9:11pm Ureterolithiasis acute October 15, 2024 9:11pm Intractable pain resolved October 15, 2024 9:11pm [facility] Work Phone: 1(218) 572-126212-31-2024 Note. MICRO - Microbiology PROCEDURE: Urine Culture [O1 *1] SOURCE: Urine BODY SITE: COLLECTED DATE/TIME: 10/11/2024 22:06 EST RECEIVED DATE/TIME: 10/12/2024 14:14 EST START DATE/TIME: 10/12/2024 14:14 EST FREE TEXT SOURCE: FINAL REPORTS Final Report [] Verified Date/Time/Personnel: 10/14/2024 08:05 EST >100,000 cfu/ml Escherichia coli PRELIMINARY REPORTS Preliminary Report [] Verified Date/Time/Personnel: 10/13/2024 12:15 EST >100,000 cfu/ml Escherichia coli LORI to follow SUSCEPTIBILITY RESULTS Escherichia coli Antibiotic LORI Dilut LORI Inter Ampicillin >16 Resistant Ampicillin/ 8/4 Susceptible Sulbactam Aztreonam <=4 Susceptible Cefazolin <=2 Susceptible Ceftazidime/ <=4 Susceptible Avibactam Ceftolozane/ <=2 Susceptible Tazobactam Ciprofloxacin <=0.25 Susceptible Ertapenem <=0.5 Susceptible Gentamicin <=2 Susceptible ID Panel Not Not Applicable Applicable Imipenem <=1 Susceptible Levofloxacin <=0.5 Susceptible Meropenem <=1 Susceptible Minocycline <=4 Susceptible Nitrofurantoin <=32 Susceptible Piperacillin/ <=8 Susceptible Tazobactam Trimethoprim/ >2/38 Resistant Sulfa Order Comments O1: Urine Culture Added by Discern Performing Locations *1: This test was performed at: [facility], [address] [place] [address], [id number] , [facility]12-29-2024 Hospital Discharge instructions Patient Education 10/12/2024 00:35:11 Bladder Infection, Female (Adult) Bladder Infection, Female (Adult) Urine is normally doesn't have any bacteria in it. But bacteria can get into the urinary tract fromthe skin around the rectum. Or they can travel in the blood from elsewhere in the body. Once they are in your urinary tract, they can cause infection in the urethra (urethritis), the bladder (cystitis), or the kidneys (pyelonephritis). The most common place for an infection is in the bladder. This is called a bladder infection. This is one of the most common infections in women. Most bladder infections are easily treated. They are not serious unless the infection spreads to the kidney. The phrases bladder infection, UTI, and cystitis are often used to describe the same thing. But they are not always the same. Cystitis is an inflammation of the bladder. The most common cause of cystitis is an infection. Symptoms The infection causes inflammation in the urethra and bladder. This causes many of the symptoms. Themost common symptoms of a bladder infection are: Pain or burning when urinating Having to urinate more often than usual Urgent need to urinate Only a small amount of urine comes out Blood in urine Abdominal discomfort. This is usually in the lower abdomen above the pubic bone. Cloudy urine Strong- or bad-smelling urine Unable to urinate (urinary retention) Unable to hold urine in (urinary incontinence) Fever Loss of appetite Confusion (in older adults) Causes Bladder infections are not contagious. You can't get one from someone else, from a toilet seat, or from sharing a bath. The most common cause of bladder infections is bacteria from the bowels. The bacteria get onto the skin around the opening of the urethra. From there, they can get into the urine and travel up to thebladder, causing inflammation and infection. This usually happens because of: Wiping improperly after urinating. Always wipe from front to back. Bowel incontinence Procedures such as having a catheter inserted Older age Not emptying your bladder. This can allow bacteria a chance to grow in your urine. Dehydration Constipation Sex Use of a diaphragm for control Treatment Bladder infections are diagnosed by a urine test. They are treated with antibiotics and usually clear up quickly without complications. Treatment helps prevent a more serious kidney infection. Medicines Medicines can help in the treatment of a bladder infection: Take antibiotics until they are used up, even if you feel better. It is important to finish them tomake sure the infection has cleared. You can use acetaminophen or ibuprofen for pain, fever, or discomfort, unless another medicine was prescribed. If you have chronic liver or kidney disease, talk with your healthcare provider before using these medicines. Also talk with your provider if you've ever had a stomach ulcer or gastrointestinal bleeding, or are taking blood-thinner medicines. If you are given phenazopydridine to reduce burning with urination, it will cause your urine to become a bright orange color. This can stain clothing. Care and prevention These self-care steps can help prevent future infections: Drink plenty of fluids to prevent dehydration and flush out your bladder. Do this unless you must restrict fluids for other health reasons, or your doctor told you not to. Proper cleaning after going to the bathroom is important. Wipe from front to back after using the toilet to prevent the spread of bacteria. Urinate more often. Don't try to hold urine in for a long time. Wear loose-fitting clothes and cotton underwear. Avoid tight-fitting pants. Improve your diet and prevent constipation. Eat more fresh fruit and vegetables, and fiber, and less junk and fatty foods. Avoid sex until your symptoms are gone. Avoid caffeine, alcohol, and spicy foods. These can irritate your bladder. Urinate right after intercourse to flush out your bladder. If you use control pills and have frequent bladder infections, discuss it with your doctor. Follow-up care Call your healthcare provider if all symptoms are not gone after 3 days of treatment. This is especially important if you have repeat infections. If a culture was done, you will be told if your treatment needs to be changed. If directed, you cancall to find out the results. If X-rays were done, you will be told if the results will affect your treatment. Call 911 Call 911 if any of the following occur: Trouble breathing Hard to wake up or confusion Fainting or loss of consciousness Rapid heart rate When to seek medical advice Call your healthcare provider right away if any of these occur: Fever of 100.4 F (38.0 C) or higher, or as directed by your healthcare provider Symptoms are not better by the third day of treatment Back or belly (abdominal) pain that gets worse Repeated vomiting, or unable to keep medicine down Weakness or dizziness Vaginal discharge Pain, redness, or swelling in the outer vaginal area (labia) 3868-2089 [employer]. [address] [place] [address], [place] [address]. All rights reserved. This information is not intended as a substitute for professional medical care. Always follow yourhealthcare professional's instructions. Follow Up Care 10/11/2024 21:52:08 With:LASHAWN AVILA DO Address: [facility] [address] [place] [address]- When:2-4 days [facility] 12-29-2024 Note Discharge Instructions Thank you for allowing [facility] to assist you with your healthcare needs. The following is importantdischarge information regarding your hospital visit. Diagnosis from Today's Visit Flank pain Urinary tract infection in female What to Do Next Instructions from Your Care Team No qualifying data available. Post Acute Orders No qualifying data available. You Need to Schedule the Following Appointments Follow Up with LASHAWN AVILA DO When:Within 2-4 days Where:[facility] [place] [address]- Allergies amoxicillin Rash Medications Please ask your primary doctor or pharmacist before taking any other medication not listed, including over the counter drugs, herbal medications, vitamins and or supplements as they may interact withyour home medications. What How Much When Why Instructions Last Dose New acetaminophen-oxyCODONE (Percocet 5 mg-325 mg oral tablet) 1 tab(s) by mouth Every 6 hours as needed for for pain Flank pain Duration: 5 Days Printed Prescription New ciprofloxacin (Cipro 500 mg oral tablet) 1 tab(s) by mouth Every 12 hours Duration: 10 Days Printed Prescription Unchanged buprenorphine-naloxone (buprenorphine-naloxone 8 mg-2 mg sublingual film) 2 Each under the tongue Once a day Unchanged buPROPion (buPROPion 150 mg/ 24 hours (XL) oral tablet, extended release) 1 tab(s) by mouth Every 24 hours Unchanged citalopram (CeleXA 20 mg oral tablet) 1 tab(s) by mouth Once a day Unchanged LORazepam (LORazepam 1 mg oral tablet) 1 tab(s) by mouth Two (2) times a day Unchanged ondansetron (ondansetron 4 mg oral disintegrating strip) 1 Each by mouth Three (3) times a day Unchanged tamsulosin (Flomax 0.4 mg oral capsule) 1 cap by mouth Once a day Duration: 10 Days Please take this list to your next doctor s visit. Bring all medications you take, including over the counter medications, herbals and other supplements with you to your doctor s visit. Patients and families are reminded to discard old lists and to update any records with all medication providers or retail pharmacies. Education Materials Bladder Infection, Female (Adult) Urine is normally doesn't have any bacteria in it. But bacteria can get into the urinary tract fromthe skin around the rectum. Or they can travel in the blood from elsewhere in the body. Once they are in your urinary tract, they can cause infection in the urethra (urethritis), the bladder (cystitis), or the kidneys (pyelonephritis). The most common place for an infection is in the bladder. This is called a bladder infection. This is one of the most common infections in women. Most bladder infections are easily treated. They are not serious unless the infection spreads to the kidney. The phrases bladder infection, UTI, and cystitis are often used to describe the same thing. But they are not always the same. Cystitis is an inflammation of the bladder. The most common cause of cystitis is an infection. Symptoms The infection causes inflammation in the urethra and bladder. This causes many of the symptoms. Themost common symptoms of a bladder infection are: Pain or burning when urinating Having to urinate more often than usual Urgent need to urinate Only a small amount of urine comes out Blood in urine Abdominal discomfort. This is usually in the lower abdomen above the pubic bone. Cloudy urine Strong- or bad-smelling urine Unable to urinate (urinary retention) Unable to hold urine in (urinary incontinence) Fever Loss of appetite Confusion (in older adults) Causes Bladder infections are not contagious. You can't get one from someone else, from a toilet seat, or from sharing a bath. The most common cause of bladder infections is bacteria from the bowels. The bacteria get onto the skin around the opening of the urethra. From there, they can get into the urine and travel up to thebladder, causing inflammation and infection. This usually happens because of: Wiping improperly after urinating. Always wipe from front to back. Bowel incontinence Procedures such as having a catheter inserted Older age Not emptying your bladder. This can allow bacteria a chance to grow in your urine. Dehydration Constipation Sex Use of a diaphragm for control Treatment Bladder infections are diagnosed by a urine test. They are treated with antibiotics and usually clear up quickly without complications. Treatment helps prevent a more serious kidney infection. Medicines Medicines can help in the treatment of a bladder infection: Take antibiotics until they are used up, even if you feel better. It is important to finish them tomake sure the infection has cleared. You can use acetaminophen or ibuprofen for pain, fever, or discomfort, unless another medicine was prescribed. If you have chronic liver or kidney disease, talk with your healthcare provider before using these medicines. Also talk with your provider if you've ever had a stomach ulcer or gastrointestinal bleeding, or are taking blood-thinner medicines. If you are given phenazopydridine to reduce burning with urination, it will cause your urine to become a bright orange color. This can stain clothing. Care and prevention These self-care steps can help prevent future infections: Drink plenty of fluids to prevent dehydration and flush out your bladder. Do this unless you must restrict fluids for other health reasons, or your doctor told you not to. Proper cleaning after going to the bathroom is important. Wipe from front to back after using the toilet to prevent the spread of bacteria. Urinate more often. Don't try to hold urine in for a long time. Wear loose-fitting clothes and cotton underwear. Avoid tight-fitting pants. Improve your diet and prevent constipation. Eat more fresh fruit and vegetables, and fiber, and less junk and fatty foods. Avoid sex until your symptoms are gone. Avoid caffeine, alcohol, and spicy foods. These can irritate your bladder. Urinate right after intercourse to flush out your bladder. If you use control pills and have frequent bladder infections, discuss it with your doctor. Follow-up care Call your healthcare provider if all symptoms are not gone after 3 days of treatment. This is especially important if you have repeat infections. If a culture was done, you will be told if your treatment needs to be changed. If directed, you cancall to find out the results. If X-rays were done, you will be told if the results will affect your treatment. Call 911 Call 911 if any of the following occur: Trouble breathing Hard to wake up or confusion Fainting or loss of consciousness Rapid heart rate When to seek medical advice Call your healthcare provider right away if any of these occur: Fever of 100.4 F (38.0 C) or higher, or as directed by your healthcare provider Symptoms are not better by the third day of treatment Back or belly (abdominal) pain that gets worse Repeated vomiting, or unable to keep medicine down Weakness or dizziness Vaginal discharge Pain, redness, or swelling in the outer vaginal area (labia) [id number] [employer]. [address] [place] [address]. All rights reserved. This information is not intended as a substitute for professional medical care. Always follow yourhealthcare professional's instructions. Additional Information VACCINATE! IT SAVES LIVES! Members of the community who have not yet received the COVID-19 vaccine and would like to receive it can visit one of [facility] vaccine clinics. There are many vaccine clinic locations within the [facility]. For locations and available times, please visit www.gettheshot.coronavirus.[place].gov/. It is important to note that some COVID mobile vaccine clinics are held outdoors and may be canceled in rainy or stormy conditions. To learn more about pediatric vaccinations (ages 5-11), we invite you to visit the [facility] webpage. [email or web address]/pages/[email or web address] stions.htmlTo learn more about the COVID-19 vaccine, we invite you to visit the CDC website for a list of frequently asked questions. https://www.cdc.gov/coronavirus/2019-ncov/vaccines/faq.html [facility] Patient Portal Access Instructions: Stay connected with your healthcare team and access your personal medical information anytime with the [facility] Patient Portal. If you would like a full copy of your medical records please contact the [facility] Medical Records Department Sunday through Sunday between 8a.m. and 4:30p.m. Please follow the directions below to access the portal: 1.Access the email account you provided upon registration to the [facility].2.Look for an invitation email from [facility].3.Open the email and access the invitation link: Accept Invitation to [facility] [employer]4.Fill in the required spence to create your account. Sign into [email or web address] with your username and password that you created in the above steps to stay up to date. You can then view a summary of results, a summary of your visits, and the ability to download your summaries to your computer or send the information securely to a physician. Remember that your healthcare information is confidential, so carefully consider who you will allow to register on the [facility] Patient Portal for access to your information. You can also access the [facility] Patient Portal on the [employer] lucas. Simply click on Health Records under [employer] and then click on the [employer] logo. HOW TO SAFELY DISPOSE OF PRESCRIPTION MEDICATIONS Please use one of the following methods to safely dispose of your unused medications. 1.Use a drug disposal kit: the drug disposal pouch allows you to safely discard your old and unuseddrugs. Ask your nurse to give you one when you are discharged.2.Visit a local take-back location: Many local pharmacies and police departments have programs that collect old and unwanted prescriptiondrugs. Call your local pharmacy or go to http://[employer]/0E6Sz2t to find one close to you.3.Make use of household items: Use cat litter or old coffee grounds to dispose medications if other options arenot available. Mix your drugs with these household products, seal them in an airtight container andthrow it into the garbage. Call [facility]: [phone] to be sure your drugs can be disposed of in this way. Some medicines may require a different approach.4.Never flush your medications down the toilet. IF YOU HAVE BEEN PRESCRIBED AN OPIOIDS FOR PAIN If you have been prescribed an opioid (such as hydrocodone, oxycodone or morphine), it is critical to understand the possible side effects and risks of opioid pain medications. Even when taken as directed, opioids can have several side effects including: Tolerance, meaning you might need to take more of a medication for the same pain relief. Nausea, vomiting and/or constipation. Sleepiness, dizziness, dry mouth, confusion, depression or itching. Physical dependence, meaning you have withdrawal symptoms when a medication is stopped ? this can develop within a few days. KNOW YOUR RESPONSIBILITIES It is important to know exactly how much and how often to take the opioid pain medications you are prescribed. Never take opioids in higher amounts or more often than prescribed. Do not combine opioids with alcohol or other drugs that cause drowsiness, such as benzodiazepines, also known as benzos,including diazepam and alprazolam, muscle relaxants or sleep aids. Never sell or share prescriptionopioids. This is illegal. Store opioids in a secure place and out of reach of others (including children, family, friends and visitors). The last page(s) of this document has been signed and retained as a CHART COPY Signatures Patient Education Materials Bladder Infection, Female (Adult) Medication Leaflets My discharge plan and instructions have been reviewed and explained to me and I,KOENIG PENNIE M understand my current condition and have read and understand these discharge instructions. I have received a written copy of the plan/instructions. If I have questions, I am aware that I should contact my doctor. Patient/Doctor Of Nurse Anesthesia Signature: Date/Time: Relationship to Patient: Witness Name/Signature: Date/Time: [facility]12-28-2024 Note* Exam Date Time Procedure Performing Provider Status 10/11/24 11:[address] Abdomen/Pelvis w/o Contrast CIRILO MUNOZ MD; Auth (Verified) [id number] ORIGINAL EXAMINATION: CT OF THE ABDOMEN AND PELVIS WITHOUT SHNOQMJB38/28/2024 11:43 pm TECHNIQUE: CT of the abdomen and pelvis was performed without the administration of intravenous contrast. Multiplanar reformatted images are provided for review. Automated exposure control, iterative reconstruction, and/or weight based adjustment of the mA/kV was utilized to reduce the radiation dose to as low as reasonably achievable. COMPARISON: 08/15/2024 HISTORY: ORDERING SYSTEM PROVIDED HISTORY: Reason for Exam: BILATERAL flank pain FINDINGS: 4 mm subpleural left lower lobe nodule is unchanged. The visualized lower thoracic structures are otherwise unremarkable. Partially visualized bilateral breast prostheses. No acute osseous or soft tissue abnormality. The liver is unremarkable in size and contour. The gallbladder, pancreas, spleen, adrenal glands are unremarkable. The nonenhanced kidneys are without evidence of hydronephrosis. Multiple bilateral nonobstructive renal calculi are unchanged measuring approximately 5 mm on the right and 8 mm on the left. The ureters are normal course and caliber. There is no definite evidence of urolithiasis. The visualized esophagus, stomach, and duodenum are unremarkable. The visualized aorta is nonaneurysmal. The GI tract exhibits no acute abnormalities. Unremarkable appendix. No pathologically enlarged retroperitoneal, mesenteric, or pelvic lymph nodes are identified. There is no free intraperitoneal air or fluid. The urinary bladder is well-distended without wall thickening or focal mass. Punctate left-sided bladder calculus is unchanged. The uterus is within normal limits for age. Interval migration of right-sided tubal ligation clip to the level of the rectum (image 98 of series 2). Other previously seen to tubal ligation clips are in stable position. IMPRESSION: Unchanged bilateral nonobstructive renal calculi. No evidence of hydronephrosis. Unchanged punctate left-sided bladder calculus. Interval migration of right-sided tubal ligation clip to the level of the rectum. I have personally reviewed the images of this examination and agree with the resident's findings and interpretation. Interpreted by: Cirilo Munoz Preliminary Report By: Delvin Jordan Electronically signed By Cirilo Munoz Dictated Date: 10/11/2024 11:50:42 PM Prelim Date: 10/12/2024 12:10:03 AM Sign Date: 10/12/2024 12:17:04 AM Ordering Provider: SANDEE MILLER [facility]12-28-2024 Evaluation + Plan note Diagnostic Tests Pending * Urine Culture 10/11/24 [facility] 11-01-2024 Hospital Discharge instructions Patient Education 08/15/2024 17:01:28 Abdominal Pain, Unknown Cause, (Female) Unknown Causes of Abdominal Pain (Female) The exact cause of your belly (abdominal) pain is not clear. This does not mean that this is something to worry about. Everyone likes to know the exact cause of the problem. But sometimes with belly pain, there is no clear-cut cause, and this could be a good thing. The good news is that your symptoms can be treated, and you will feel better. Your condition does not seem serious now. But sometimes the signs of a serious problem may take more time to appear. For this reason, it is important for you to watch for any new symptoms, problems, or worsening of your condition. Over the next few days, the abdominal pain may come and go. Or it may be constant. Other common symptoms can include nausea and vomiting. Sometimes it can be difficult to tell if you feel nauseous. You may just feel bad and not connect that feeling to nausea. Constipation, diarrhea, and a fever maygo along with the pain. The pain may continue even if treated correctly over the following days. Depending on how things go, sometimes the cause can become clear and may need more or different treatment. Additional evaluations, medicines, or tests may also be needed. Home care Your healthcare provider may prescribe medicine for pain, symptoms, or an infection. Follow the healthcare provider's instructions for taking these medicines. General care Rest as much as you can until your next exam. No strenuous activities. Try to find positions that ease discomfort. A small pillow placed on the abdomen may help relieve pain. Something warm on your abdomen (such as a heating pad) may help, but be careful not to burn yourself. Diet Don t force yourself to eat, especially if having cramps, vomiting, or diarrhea. Water is important so you don't get dehydrated. Soup may also be good. Sports drinks may also help,especially if they are not too acidic. Don't drink sugary drinks as this can make things worse. Take liquids in small amounts. Don t guzzle them. Caffeine sometimes makes the pain and cramping worse. Don t take dairy products if you have vomiting or diarrhea. Don't eat large amounts at a time. Wait a few minutes between bites. Eat a diet low in fiber (called a low-residue diet). Foods allowed include refined breads, white rice, fruit and vegetable juices without pulp, tender meats. These foods will pass more easily throughthe intestine. Don t have whole-grain foods, whole fruits and vegetables, meats, seeds and nuts, fried or fatty foods, dairy, alcohol and spicy foods until your symptoms go away. Follow-up care Follow up with your healthcare provider, or as advised, if your pain does not begin to improve in the next 24 hours. Call 911 Call 911 if any of these occur: Trouble breathing Confusion Fainting or loss of consciousness Rapid heart rate Seizure When to seek medical advice Call your healthcare provider right away if any of these occur: Pain gets worse or moves to the right lower abdomen New or worsening vomiting or diarrhea Swelling of the abdomen Unable to pass stool for more than 3 days Fever of 100.4 F (38 C) or higher, or as directed by your healthcare provider. Blood in vomit or bowel movements (dark red or black color) Yellow color of eyes and skin (jaundice) Weakness, dizziness Chest, arm, back, neck, or jaw pain Unexpected vaginal bleeding or missed period Can't keep down liquids or water and you are getting dehydrated [id number] [employer]. [address] [place] [address]. All rights reserved. This information is not intended as a substitute for professional medical care. Always follow yourhealthcare professional's instructions. 08/15/2024 17:01:24 Kidney Stone w/ Colic Kidney Stone with Pain The sharp cramping pain on either side of your lower back and nausea/vomiting that you have are because of a small stone that has formed in the kidney. It is now passing down a narrow tube (ureter) on its way to your bladder. Once the stone reaches your bladder, the pain will often stop. But it maycome back as the stone continues to pass out of the bladder and through the urethra. The stone may pass in your urine stream in one piece. The size may be 1/16 inch to 1/4 inch (1 mm to 6 mm). Or, the stone may break up into dmitry fragments that you may not even notice. Once you have had a kidney stone, you are at risk of getting another one in the future. There are 4types of kidney stones. Eighty percent are calcium stones mostly calcium oxalate but also some withcalcium phosphate. The other 3 types include uric acid stones, struvite stones (from a preceding infection), and rarely, cystine stones. Most stones will pass on their own, but may take from a few hours to a few days. Sometimes the stone is too large to pass by itself. In that case, the healthcare provider will need to use other ways to remove the stone. These techniques include: Lithotripsy. This uses ultrasound waves to break up the stone. Ureteroscopy. This pushes a basket-like instrument through the urethra and bladder and into the ureter to pull out the stone. Various types of direct surgery through the skin Home care The following are general care guidelines: Drink plenty of fluids. This means at least 12, 8-ounce glasses of fluid mostly water a day. Each time you urinate, do so in a jar. Pour the urine from the jar through the strainer and into the toilet. Continue doing this until 24 hours after your pain stops. By then, if there was a kidney stone, it should pass from your bladder. Some stones dissolve into sand-like particles and pass rightthrough the strainer. In that case, you won t ever see a stone. Save any stone that you find in the strainer and bring it to your healthcare provider to look at. It may be possible to stop certain types of stones from forming. For this reason, it is important to know what kind of stone you have. Try to stay as active as possible. This will help the stone pass. Don't stay in bed unless your pain keeps you from getting up. You may notice a red, pink, or brown color to your urine. This is normal while passing a kidney stone. If you develop pain, you may take ibuprofen or naproxen for pain, unless another medicine was prescribed. If you have chronic liver or kidney disease, talk with your healthcare provider before takingthese medicines. Also talk with your provider if you've had a stomach ulcer or GI bleeding. Preventing stones Each year for the next 5 to 7 years, you are at risk that a new stone will form. Your risk is a 50%chance over this time period. The risk is higher if you have a family history of kidney stones or have certain chronic illnesses like hypertension, obesity, or diabetes. But you can make changes to your lifestyle and diet that can lower your risk for another stone. Most kidney stones are made of calcium. The following is advice for preventing another calcium stone. If you don t know the type of stone you have, follow this advice until the cause of your stone isfound. Things that help: The most important thing you can do is to drink plenty of fluids each day. See home care above. Eat foods that contain phytates. These include wheat, rice, rye, barley, and beans. Phytates are substances that may lower your risk for any type of stone to form. Eat more fruits and vegetables. Choose those that are high in potassium. Eat foods high in natural citrate like fruit and low-sugar fruit juices. Having too little calcium in your diet can put you at risk for calcium kidney stones. Eat a normal amount of calcium in your diet and talk with your healthcare provider if you are taking calcium supplements. Cutting back on your calcium intake may raise your risk. New research shows that eating calcium-rich and oxalate-rich foods together lowers your risk for stones by binding the minerals in thestomach and intestines before they can reach the kidneys. Limit salt intake to 2 grams (1 teaspoon) per day. Use limited amounts when cooking, and don t add salt at the table. Processed and canned foods are usually high in salt. Spinach, rhubarb, peanuts, cashews, almonds, grapefruit, and grapefruit juice are all high oxalate foods. You should limit how much of these you eat. Or eat them with calcium-rich foods. These include dairy products, dark leafy greens, soy products, and calcium-enriched foods. Reducing the amount of animal meat and high protein foods in your diet may lower your risk for uricacid stones. Avoid excess sugar (sucrose) and fructose (sweetener in many soft drinks) in your diet. If you take vitamin C as a supplement, don't take more than 1,000 mg a day. A dietitian or your healthcare provider can give you information about changes in your diet that will help prevent more kidney stones from forming. Follow-up care Follow up with your healthcare provider, or as advised, if the pain lasts more than 48 hours. Talk with your provider about urine and blood tests to find out the cause of your stone. If you had an X-ray, CT scan, or other diagnostic test, you will be told of any new findings that may affect your care. Call 911 Call 911 if you have any of these: Weakness, dizziness, or fainting When to seek medical advice Call your healthcare provider right away if any of these occur: Pain that is not controlled by the medicine given Repeated vomiting or unable to keep down fluids Fever of 100.4 F (38 C) or higher, or as directed by your healthcare provider Passage of solid red or brown urine (can't see through it) or urine with lots of blood clots Foul-smelling or cloudy urine Unable to pass urine for 8 hours and increasing bladder pressure [id number] [employer]. [address] [place] [address], [place] [address]. All rights reserved. This information is not intended as a substitute for professional medical care. Always follow yourhealthcare professional's instructions. Follow Up Care 08/15/2024 13:49:20 With:DALE COLES MD, [facility] [employer] [facility] [facility] Address: [address] [place] [phone] When:3-7 days [facility] 11-01-2024 Note Discharge Instructions Thank you for allowing [facility] to assist you with your healthcare needs. The following is importantdischarge information regarding your hospital visit. Diagnosis from Today's Visit Bilateral nephrolithiasis Right flank pain What to Do Next Instructions from Your Care Team please follow up with urology for further outpatient evaluation. If your symptoms change or worsen please present to the ED for more emergent evaluation. No qualifying data available. Post Acute Orders No qualifying data available. You Need to Schedule the Following Appointments Follow Up with DALE COLES MD, [employer] When:Within 3-7 days Where:[address] [place] [phone] Allergies amoxicillin Rash Medications Please ask your primary doctor or pharmacist before taking any other medication not listed, including over the counter drugs, herbal medications, vitamins and or supplements as they may interact withur home medications. What How Much When Why Instructions Last Dose New acetaminophen-hydrocodone ([place] 325- 5 mg oral tablet) 1 tab(s) by mouth Every 6 hours as needed for for pain Right flank pain Duration: 2 Days Printed Prescription Unchanged buprenorphine-naloxone (buprenorphine-naloxone 8 mg-2 mg sublingual film) 2 Each under the tongue Once a day Unchanged buPROPion (buPROPion 150 mg/ 24 hours (XL) oral tablet, extended release) 1 tab(s) by mouth Every 24 hours Unchanged citalopram (CeleXA 20 mg oral tablet) 1 tab(s) by mouth Once a day Unchanged LORazepam (LORazepam 1 mg oral tablet) 1 tab(s) by mouth Two (2) times a day Unchanged ondansetron (ondansetron 4 mg oral disintegrating strip) 1 Each by mouth Three (3) times a day Unchanged tamsulosin (Flomax 0.4 mg oral capsule) 1 cap by mouth Once a day Duration: 10 Days Please take this list to your next doctor s visit. Bring all medications you take, including over the counter medications, herbals and other supplements with you to your doctor s visit. Patients and families are reminded to discard old lists and to update any records with all medication providers or retail pharmacies. Education Materials Unknown Causes of Abdominal Pain (Female) The exact cause of your belly (abdominal) pain is not clear. This does not mean that this is something to worry about. Everyone likes to know the exact cause of the problem. But sometimes with belly pain, there is no clear-cut cause, and this could be a good thing. The good news is that your symptoms can be treated, and you will feel better. Your condition does not seem serious now. But sometimes the signs of a serious problem may take more time to appear. For this reason, it is important for you to watch for any new symptoms, problems, or worsening of your condition. Over the next few days, the abdominal pain may come and go. Or it may be constant. Other common symptoms can include nausea and vomiting. Sometimes it can be difficult to tell if you feel nauseous. You may just feel bad and not connect that feeling to nausea. Constipation, diarrhea, and a fever maygo along with the pain. The pain may continue even if treated correctly over the following days. Depending on how things go, sometimes the cause can become clear and may need more or different treatment. Additional evaluations, medicines, or tests may also be needed. Home care Your healthcare provider may prescribe medicine for pain, symptoms, or an infection. Follow the healthcare provider's instructions for taking these medicines. General care Rest as much as you can until your next exam. No strenuous activities. Try to find positions that ease discomfort. A small pillow placed on the abdomen may help relieve pain. Something warm on your abdomen (such as a heating pad) may help, but be careful not to burn yourself. Diet Don t force yourself to eat, especially if having cramps, vomiting, or diarrhea. Water is important so you don't get dehydrated. Soup may also be good. Sports drinks may also help,especially if they are not too acidic. Don't drink sugary drinks as this can make things worse. Take liquids in small amounts. Don t guzzle them. Caffeine sometimes makes the pain and cramping worse. Don t take dairy products if you have vomiting or diarrhea. Don't eat large amounts at a time. Wait a few minutes between bites. Eat a diet low in fiber (called a low-residue diet). Foods allowed include refined breads, white rice, fruit and vegetable juices without pulp, tender meats. These foods will pass more easily throughthe intestine. Don t have whole-grain foods, whole fruits and vegetables, meats, seeds and nuts, fried or fatty foods, dairy, alcohol and spicy foods until your symptoms go away. Follow-up care Follow up with your healthcare provider, or as advised, if your pain does not begin to improve in the next 24 hours. Call 911 Call 911 if any of these occur: Trouble breathing Confusion Fainting or loss of consciousness Rapid heart rate Seizure When to seek medical advice Call your healthcare provider right away if any of these occur: Pain gets worse or moves to the right lower abdomen New or worsening vomiting or diarrhea Swelling of the abdomen Unable to pass stool for more than 3 days Fever of 100.4 F (38 C) or higher, or as directed by your healthcare provider. Blood in vomit or bowel movements (dark red or black color) Yellow color of eyes and skin (jaundice) Weakness, dizziness Chest, arm, back, neck, or jaw pain Unexpected vaginal bleeding or missed period Can't keep down liquids or water and you are getting dehydrated [id number] [employer]. [address] [place] [address]. All rights reserved. This information is not intended as a substitute for professional medical care. Always follow yourhealthcare professional's instructions. Kidney Stone with Pain The sharp cramping pain on either side of your lower back and nausea/vomiting that you have are because of a small stone that has formed in the kidney. It is now passing down a narrow tube (ureter) on its way to your bladder. Once the stone reaches your bladder, the pain will often stop. But it maycome back as the stone continues to pass out of the bladder and through the urethra. The stone may pass in your urine stream in one piece. The size may be 1/16 inch to 1/4 inch (1 mm to 6 mm). Or, the stone may break up into dmitry fragments that you may not even notice. Once you have had a kidney stone, you are at risk of getting another one in the future. There are 4types of kidney stones. Eighty percent are calcium stones mostly calcium oxalate but also some withcalcium phosphate. The other 3 types include uric acid stones, struvite stones (from a preceding infection), and rarely, cystine stones. Most stones will pass on their own, but may take from a few hours to a few days. Sometimes the stone is too large to pass by itself. In that case, the healthcare provider will need to use other ways to remove the stone. These techniques include: Lithotripsy. This uses ultrasound waves to break up the stone. Ureteroscopy. This pushes a basket-like instrument through the urethra and bladder and into the ureter to pull out the stone. Various types of direct surgery through the skin Home care The following are general care guidelines: Drink plenty of fluids. This means at least 12, 8-ounce glasses of fluid mostly water a day. Each time you urinate, do so in a jar. Pour the urine from the jar through the strainer and into the toilet. Continue doing this until 24 hours after your pain stops. By then, if there was a kidney stone, it should pass from your bladder. Some stones dissolve into sand-like particles and pass rightthrough the strainer. In that case, you won t ever see a stone. Save any stone that you find in the strainer and bring it to your healthcare provider to look at. It may be possible to stop certain types of stones from forming. For this reason, it is important to know what kind of stone you have. Try to stay as active as possible. This will help the stone pass. Don't stay in bed unless your pain keeps you from getting up. You may notice a red, pink, or brown color to your urine. This is normal while passing a kidney stone. If you develop pain, you may take ibuprofen or naproxen for pain, unless another medicine was prescribed. If you have chronic liver or kidney disease, talk with your healthcare provider before takingthese medicines. Also talk with your provider if you've had a stomach ulcer or GI bleeding. Preventing stones Each year for the next 5 to 7 years, you are at risk that a new stone will form. Your risk is a 50%chance over this time period. The risk is higher if you have a family history of kidney stones or have certain chronic illnesses like hypertension, obesity, or diabetes. But you can make changes to your lifestyle and diet that can lower your risk for another stone. Most kidney stones are made of calcium. The following is advice for preventing another calcium stone. If you don t know the type of stone you have, follow this advice until the cause of your stone isfound. Things that help: The most important thing you can do is to drink plenty of fluids each day. See home care above. Eat foods that contain phytates. These include wheat, rice, rye, barley, and beans. Phytates are substances that may lower your risk for any type of stone to form. Eat more fruits and vegetables. Choose those that are high in potassium. Eat foods high in natural citrate like fruit and low-sugar fruit juices. Having too little calcium in your diet can put you at risk for calcium kidney stones. Eat a normal amount of calcium in your diet and talk with your healthcare provider if you are taking calcium supplements. Cutting back on your calcium intake may raise your risk. New research shows that eating calcium-rich and oxalate-rich foods together lowers your risk for stones by binding the minerals in thestomach and intestines before they can reach the kidneys. Limit salt intake to 2 grams (1 teaspoon) per day. Use limited amounts when cooking, and don t add salt at the table. Processed and canned foods are usually high in salt. Spinach, rhubarb, peanuts, cashews, almonds, grapefruit, and grapefruit juice are all high oxalate foods. You should limit how much of these you eat. Or eat them with calcium-rich foods. These include dairy products, dark leafy greens, soy products, and calcium-enriched foods. Reducing the amount of animal meat and high protein foods in your diet may lower your risk for uricacid stones. Avoid excess sugar (sucrose) and fructose (sweetener in many soft drinks) in your diet. If you take vitamin C as a supplement, don't take more than 1,000 mg a day. A dietitian or your healthcare provider can give you information about changes in your diet that will help prevent more kidney stones from forming. Follow-up care Follow up with your healthcare provider, or as advised, if the pain lasts more than 48 hours. Talk with your provider about urine and blood tests to find out the cause of your stone. If you had an X-ray, CT scan, or other diagnostic test, you will be told of any new findings that may affect your care. Call 911 Call 911 if you have any of these: Weakness, dizziness, or fainting When to seek medical advice Call your healthcare provider right away if any of these occur: Pain that is not controlled by the medicine given Repeated vomiting or unable to keep down fluids Fever of 100.4 F (38 C) or higher, or as directed by your healthcare provider Passage of solid red or brown urine (can't see through it) or urine with lots of blood clots Foul-smelling or cloudy urine Unable to pass urine for 8 hours and increasing bladder pressure [id number] [employer]. [address] [place] [address]. All rights reserved. This information is not intended as a substitute for professional medical care. Always follow yourhealthcare professional's instructions. Additional Information VACCINATE! IT SAVES LIVES! Members of the community who have not yet received the COVID-19 vaccine and would like to receive it can visit one of [facility] vaccine clinics. There are many vaccine clinic locations within the [facility]. For locations and available times, please visit [email or web address].[email or web address]/. It is important to note that some COVID mobile vaccine clinics are held outdoors and may be canceled in rainy or stormy conditions. To learn more about pediatric vaccinations (ages 5-11), we invite you to visit the [facility] webpage. [email or web address]/pages/[email or web address]-[email or web address] [email or web address].htmlTo learn more about the COVID-19 vaccine, we invite you to visit the CDC website for a list of frequently asked questions. https://www.cdc.gov/coronavirus/2019-ncov/vaccines/faq.html [facility] Patient Portal Access Instructions: Stay connected with your healthcare team and access your personal medical information anytime with the [facility] Patient Portal. If you would like a full copy of your medical records please contact the [facility] Medical Records Department Sunday through Sunday between 8a.m. and 4:30p.m. Please follow the directions below to access the portal: 1.Access the email account you provided upon registration to the [facility].2.Look for an invitation email from [facility].3.Open the email and access the invitation link: Accept Invitation to [facility]4.Fill in the required spence to create your account. Sign into [email or web address].[email or web address] with your username and password that you created in the above steps to stay up to date. You can then view a summary of results, a summary of your visits, and the ability to download your summaries to your computer or send the information securely to a physician. Remember that your healthcare information is confidential, so carefully consider who you will allow to register on the [facility] [employer] Patient Portal for access to your information. You can also access the [facility] Patient Portal on the [employer] lucas. Simply click on Health Records under HealthData and then click on the Rj logo. HOW TO SAFELY DISPOSE OF PRESCRIPTION MEDICATIONS Please use one of the following methods to safely dispose of your unused medications. 1.Use a drug disposal kit: the drug disposal pouch allows you to safely discard your old and unuseddrugs. Ask your nurse to give you one when you are discharged.2.Visit a local take-back location: Many local pharmacies and police departments have programs that collect old and unwanted prescriptiondrugs. Call your local pharmacy or go to http://bit.ly/6H0Cs2h to find one close to you.3.Make use of household items: Use cat litter or old coffee grounds to dispose medications if other options arenot available. Mix your drugs with these household products, seal them in an airtight container andthrow it into the garbage. Call [facility]: [phone] to be sure your drugs can be disposed of in this way. Some medicines may require a different approach.4.Never flush your medications down the toilet. IF YOU HAVE BEEN PRESCRIBED AN OPIOIDS FOR PAIN If you have been prescribed an opioid (such as hydrocodone, oxycodone or morphine), it is critical to understand the possible side effects and risks of opioid pain medications. Even when taken as directed, opioids can have several side effects including: Tolerance, meaning you might need to take more of a medication for the same pain relief. Nausea, vomiting and/or constipation. Sleepiness, dizziness, dry mouth, confusion, depression or itching. Physical dependence, meaning you have withdrawal symptoms when a medication is stopped ? this can develop within a few days. KNOW YOUR RESPONSIBILITIES It is important to know exactly how much and how often to take the opioid pain medications you are prescribed. Never take opioids in higher amounts or more often than prescribed. Do not combine opioids with alcohol or other drugs that cause drowsiness, such as benzodiazepines, also known as benzos,including diazepam and alprazolam, muscle relaxants or sleep aids. Never sell or share prescriptionopioids. This is illegal. Store opioids in a secure place and out of reach of others (including children, family, friends and visitors). The last page(s) of this document has been signed and retained as a CHART COPY Signatures Patient Education Materials Abdominal Pain, Unknown Cause, (Female) Kidney Stone w/ Colic Medication Leaflets My discharge plan and instructions have been reviewed and explained to me and IMANUEL SARAH M understand my current condition and have read and understand these discharge instructions. I have received a written copy of the plan/instructions. If I have questions, I am aware that I should contact my doctor. Patient/Doctor Of Nurse Anesthesia Signature: Date/Time: Relationship to Patient: Witness Name/Signature: Date/Time: [facility]11-01-2024 Note ORIGINAL EXAMINATION: CT OF THE ABDOMEN AND PELVIS WITHOUT CONTRAST 08/15/2024 3:59 pm TECHNIQUE: CT of the abdomen and pelvis was performed without the administration of intravenous contrast. Multiplanar reformatted images are provided for review. Automated exposure control, iterative reconstruction, and/or weight based adjustment of the mA/kV was utilized to reduce the radiation dose to as low as reasonably achievable. COMPARISON: 06/10/2024 HISTORY: ORDERING SYSTEM PROVIDED HISTORY: Reason for Exam: abdominal pain FINDINGS: Lower Chest: Subsegmental atelectasis. Partially imaged bilateral breast prosthesis. Organs: Bilateral nonobstructive nephrolithiasis measuring up to 8 mm on the left. No hydronephrosis or hydroureter. No definitive ureteral stone. Collapsed gallbladder. GI/Bowel: No wall thickening or dilatation. Normal appendix. Pelvis: No adnexal mass. Probable tiny dependent stone within the bladder. Trace free pelvic fluid, likely physiologic. Scattered tubal ligation clips. Peritoneum/Retroperitoneum: Nonaneurysmal abdominal aorta. No enlarged lymph nodes. Bones/Soft Tissues: No acute process. IMPRESSION: Bilateral nonobstructive nephrolithiasis. No hydronephrosis or hydroureter. Tiny layering bladder calculus. I have personally reviewed the images of this examination and agree with the resident's findings and interpretation. Interpreted by: Tino Vallecillo Preliminary Report By: Jose Varghese Electronically signed By Tino Vallecillo Dictated Date: 08/15/2024 4:03:32 PM Prelim Date: 08/15/2024 4:13:32 PM Sign Date: 08/15/2024 4:17:23 PM Ordering Provider: [facility]08-27-2024 Hospital Discharge instructions Patient Education 06/10/2024 17:37:58 Exercise to Help Your Kidneys Exercise to Help Your Kidneys If you have kidney problems, or have in the past, or if you want to prevent problems with your kidneys, exercise is important. The human body needs regular physical activity to stay healthy. Many diseases, physical limitations, and mental health problems are affected by a lack of physical activity. Exercise choices My doctor suggests that I try these exercises: Stretching Swimming Walking Bicycling Taking a fitness class Taking a dance class Using an exercise machine, such as Other How you benefit When you exercise, your organs and tissues get more oxygen and nutrients from your blood. This gives you more energy. Exercise also makes your muscles stronger, which helps make your bones stronger. This is helpful because kidney disease sometimes weakens bones. Frequent aerobic exercise (any nonstop activity that makes your heart work harder) can also help lower high blood pressure. Exercise lowers your risk of getting diabetes. It can also help you control your diabetes if you already have it. The other known benefits of exercise are: A lower risk for heart attack and stroke Improved sense of well-being and less stress A lower risk for colon and breast cancer Prevention and improvement of joint pains (arthritis) Lower levels of blood fats (cholesterol) Better sleep A healthier weight Make exercise part of your life It's best to exercise at least 5 times a week. Make it a goal to work out for 30 minutes each time.If you can t do 30 minutes at a time, you can break it up into smaller periods. For example, you could take a brisk 10-minute walk 3 times a day. Talk with your healthcare provider about the safest way to start. To be more active All types of movement count. Try the tips below to help you get more active. Swim laps at a local pool. Go for a walk, mow the lawn, or wash the car. Take the stairs. Choose a parking spot farther away from your destination. Take dancing lessons or join a health club Remember, find an activity you enjoy and you will be more likely to keep it up. [employer]. [address] [place] [address]. All rights reserved. This information is not intended as a substitute for professional medical care. Always follow yourhealthcare professional's instructions. 06/10/2024 17:37:52 Anatomy of the Female Urinary Tract Anatomy of the Female Urinary Tract Your urinary tract helps get rid of urine (your body s liquid waste). The kidneys collect chemicalsand water your body doesn t need. This is turned into urine. Urine travels out of the kidneys through the ureters to the bladder. The bladder holds urine until you re ready to release it. The urethracarries urine from the bladder out of the body. The main sphincter muscle circles the mid-urethra. Front view of female urinary tract. [id number] [employer]. [address] [place] [address]. All rights reserved. This information is not intended as a substitute for professional medical care. Always follow yourhealthcare professional's instructions. Follow Up Care 06/10/2024 16:01:07 With:DALE COLES MD, [facility] Address: [address] [place] [id number] [phone] When:2-4 days With:LASHAWN AVILA DO Address: [address] [facility] [place] [address]- When:2-4 days [facility] 08-27-2024 Emergency department Discharge summary Discharge Instructions Thank you for allowing [facility] to assist you with your healthcare needs. The following is importantdischarge information regarding your hospital visit. Diagnosis from Today's Visit Kidney stone What to Do Next Instructions from Your Care Team No qualifying data available. Post Acute Orders No qualifying data available. You Need to Schedule the Following Appointments Follow Up with LASHAWN AVILA DO When:Within 2-4 days Where:[facility] [address] [place] [id number]- Allergies amoxicillin Rash Medications Please ask your primary doctor or pharmacist before taking any other medication not listed, including over the counter drugs, herbal medications, vitamins and or supplements as they may interact withyour home medications. What How Much When Why Instructions Last Dose New cyclobenzaprine (cyclobenzaprine 5 mg oral tablet) 1 tab(s) by mouth Two (2) times a day Duration: 10 Days Printed Prescription New oxyCODONE (oxyCODONE 5 mg oral tablet ( IMMEDIATE release )) 1 tab(s) by mouth Every 6 hours as needed for for pain Kidney stone Duration: 1 Days Printed Prescription New tamsulosin (Flomax 0.4 mg oral capsule) 1 cap by mouth Once a day Duration: 10 Days Printed Prescription Unchanged buprenorphine-naloxone (buprenorphine-naloxone 8 mg-2 mg sublingual film) 2 Each under the tongue Once a day Unchanged buPROPion (buPROPion 150 mg/ 24 hours (XL) oral tablet, extended release) 1 tab(s) by mouth Every 24 hours Unchanged citalopram (CeleXA 20 mg oral tablet) 1 tab(s) by mouth Once a day Unchanged LORazepam (LORazepam 1 mg oral tablet) 1 tab(s) by mouth Two (2) times a day Unchanged ondansetron (ondansetron 4 mg oral disintegrating strip) 1 Each by mouth Three (3) times a day Please take this list to your next doctor s visit. Bring all medications you take, including over the counter medications, herbals and other supplements with you to your doctor s visit. Patients and families are reminded to discard old lists and to update any records with all medication providers or retail pharmacies. Education Materials Exercise to Help Your Kidneys If you have kidney problems, or have in the past, or if you want to prevent problems with your kidneys, exercise is important. The human body needs regular physical activity to stay healthy. Many diseases, physical limitations, and mental health problems are affected by a lack of physical activity. Exercise choices My doctor suggests that I try these exercises: Stretching Swimming Walking Bicycling Taking a fitness class Taking a dance class Using an exercise machine, such as Other How you benefit When you exercise, your organs and tissues get more oxygen and nutrients from your blood. This gives you more energy. Exercise also makes your muscles stronger, which helps make your bones stronger. This is helpful because kidney disease sometimes weakens bones. Frequent aerobic exercise (any nonstop activity that makes your heart work harder) can also help lower high blood pressure. Exercise lowers your risk of getting diabetes. It can also help you control your diabetes if you already have it. The other known benefits of exercise are: A lower risk for heart attack and stroke Improved sense of well-being and less stress A lower risk for colon and breast cancer Prevention and improvement of joint pains (arthritis) Lower levels of blood fats (cholesterol) Better sleep A healthier weight Make exercise part of your life It's best to exercise at least 5 times a week. Make it a goal to work out for 30 minutes each time.If you can t do 30 minutes at a time, you can break it up into smaller periods. For example, you could take a brisk 10-minute walk 3 times a day. Talk with your healthcare provider about the safest way to start. To be more active All types of movement count. Try the tips below to help you get more active. Swim laps at a local pool. Go for a walk, mow the lawn, or wash the car. Take the stairs. Choose a parking spot farther away from your destination. Take dancing lessons or join a health club Remember, find an activity you enjoy and you will be more likely to keep it up. [employer]. [address] [place] [address]. All rights reserved. This information is not intended as a substitute for professional medical care. Always follow yourhealthcare professional's instructions. Anatomy of the Female Urinary Tract Your urinary tract helps get rid of urine (your body s liquid waste). The kidneys collect chemicalsand water your body doesn t need. This is turned into urine. Urine travels out of the kidneys through the ureters to the bladder. The bladder holds urine until you re ready to release it. The urethracarries urine from the bladder out of the body. The main sphincter muscle circles the mid-urethra. Front view of female urinary tract. [employer]. [address] [place] [address]. All rights reserved. This information is not intended as a substitute for professional medical care. Always follow yourhealthcare professional's instructions. Additional Information VACCINATE! IT SAVES LIVES! Members of the community who have not yet received the COVID-19 vaccine and would like to receive it can visit one of [facility] vaccine clinics. There are many vaccine clinic locations within the [facility]. For locations and available times, please visit www.gettheshot.coronavirus.[place].gov/. It is important to note that some COVID mobile vaccine clinics are held outdoors and may be canceled in rainy or stormy conditions. To learn more about pediatric vaccinations (ages 5-11), we invite you to visit the [facility] webpage. https://www.[facility].org/pages/2263-Wzsjn-Ktkcpyvxecl-Ymtmkqcwrw-Gqbzv-Hfm stions.htmlTo learn more about the COVID-19 vaccine, we invite you to visit the CDC website for a list of frequently asked questions. https://www.cdc.gov/coronavirus/2019-ncov/vaccines/faq.html [facility] Patient Portal Access Instructions: Stay connected with your healthcare team and access your personal medical information anytime with the [facility] Patient Portal. If you would like a full copy of your medical records please contact the [facility] Medical Records Department Sunday through Sunday between 8a.m. and 4:30p.m. Please follow the directions below to access the portal: 1.Access the email account you provided upon registration to the hospital.2.Look for an invitation email from [facility].3.Open the email and access the invitation link: Accept Invitation to [facility]4.Fill in the required spence to create your account. Sign into www.[email or web address] with your username and password that you created in the above steps to stay up to date. You can then view a summary of results, a summary of your visits, and the ability to download your summaries to your computer or send the information securely to a physician. Remember that your healthcare information is confidential, so carefully consider who you will allow to register on the [facility] [employer] Patient Portal for access to your information. You can also access the [facility] Patient Portal on the [employer]. Simply click on Health Records under [employer] and then click on the [employer] logo. HOW TO SAFELY DISPOSE OF PRESCRIPTION MEDICATIONS Please use one of the following methods to safely dispose of your unused medications. 1.Use a drug disposal kit: the drug disposal pouch allows you to safely discard your old and unuseddrugs. Ask your nurse to give you one when you are discharged.2.Visit a local take-back location: Many local pharmacies and police departments have programs that collect old and unwanted prescriptiondrugs. Call your local pharmacy or go to http://bewarket.SinDelantal.Mx/1Q3Xa3x to find one close to you.3.Make use of household items: Use cat litter or old coffee grounds to dispose medications if other options arenot available. Mix your drugs with these household products, seal them in an airtight container andthrow it into the garbage. Call [facility]: [phone] to be sure your drugs can be disposed of in this way. Some medicines may require a different approach.4.Never flush your medications down the toilet. IF YOU HAVE BEEN PRESCRIBED AN OPIOIDS FOR PAIN If you have been prescribed an opioid (such as hydrocodone, oxycodone or morphine), it is critical to understand the possible side effects and risks of opioid pain medications. Even when taken as directed, opioids can have several side effects including: Tolerance, meaning you might need to take more of a medication for the same pain relief. Nausea, vomiting and/or constipation. Sleepiness, dizziness, dry mouth, confusion, depression or itching. Physical dependence, meaning you have withdrawal symptoms when a medication is stopped ? this can develop within a few days. KNOW YOUR RESPONSIBILITIES It is important to know exactly how much and how often to take the opioid pain medications you are prescribed. Never take opioids in higher amounts or more often than prescribed. Do not combine opioids with alcohol or other drugs that cause drowsiness, such as benzodiazepines, also known as benzos,including diazepam and alprazolam, muscle relaxants or sleep aids. Never sell or share prescriptionopioids. This is illegal. Store opioids in a secure place and out of reach of others (including children, family, friends and visitors). The last page(s) of this document has been signed and retained as a CHART COPY Signatures Patient Education Materials Exercise to Help Your Kidneys Anatomy of the Female Urinary Tract Medication Leaflets My discharge plan and instructions have been reviewed and explained to me and IMANUEL SARAH M understand my current condition and have read and understand these discharge instructions. I have received a written copy of the plan/instructions. If I have questions, I am aware that I should contact my doctor. Patient/Doctor Of Nurse Anesthesia Signature: Date/Time: Relationship to Patient: Witness Name/Signature: Date/Time: [facility]08-27-2024 Note ORIGINAL EXAMINATION: CT OF THE ABDOMEN AND PELVIS WITHOUT CONTRAST 06/10/2024 5:01 pm TECHNIQUE: CT of the abdomen and pelvis was performed without the administration of intravenous contrast. Multiplanar reformatted images are provided for review. Automated exposure control, iterative reconstruction, and/or weight based adjustment of the mA/kV was utilized to reduce the radiation dose to as low as reasonably achievable. COMPARISON: None. HISTORY: ORDERING SYSTEM PROVIDED HISTORY: Reason for Exam: BILATERAL flank pain FINDINGS: Lower Chest: Normal heart size. No focal consolidation or pleural effusion. Organs: The liver and biliary tract appears normal. The spleen appears normal. The pancreas appears normal. The adrenal glands appear normal. There are bilateral nonobstructive renal stones in the kidneys. There is also a 3 mm stone in the bladder at left UVJ with mild left hydroureter, probably reflecting impending or recent passage. GI/Bowel: There is no evidence of obstruction. The appendix is normal. Pelvis: Status post tubal ligation with 2 left-sided clips in expected location and 1 right-sided clip in expected location and 1 right-sided clip migrated to the anterosuperior aspect the uterus/pelvis. The pelvic organs appear normal. Peritoneum/Retroperitoneum: There is no intraperitoneal free air or ascites. The aorta and its major branches appear normal. No lymphadenopathy is identified. Bones/Soft Tissues: No focal bone or soft tissue abnormality is seen. IMPRESSION: 1. 3 mm stone in the bladder at left UVJ with mild left hydroureter, probably reflecting impending or recent passage. 2. Additional bilateral nonobstructive renal stones. 3. Status post tubal ligation with 2 left-sided clips in place and 1 right-sided clip in place but 1 right-sided clip migrated to the anterosuperior pelvis. Interpreted by: Cirilo Munoz Preliminary Report By: Cirilo Munoz Electronically signed By Cirilo Munoz Dictated Date: 06/10/2024 5:14:01 PM Prelim Date: 06/10/2024 5:19:03 PM Sign Date: 06/10/2024 5:19:03 PM Ordering Provider: [facility] 02-18-2024 Note. MICRO - Microbiology PROCEDURE: Urine Culture [O1 *1] SOURCE: Urine BODY SITE: COLLECTED DATE/TIME: 02/15/2024 17:23 EDT RECEIVED DATE/TIME: 02/16/2024 13:45 EDT START DATE/TIME: 02/16/2024 13:45 EDT FREE TEXT SOURCE: FINAL REPORTS Final Report [] Verified Date/Time/Personnel: 02/18/2024 07:39 EDT >100,000 cfu/ml Escherichia coli PRELIMINARY REPORTS Preliminary Report [] Verified Date/Time/Personnel: 02/17/2024 11:23 EDT >100,000 cfu/ml Escherichia coli LORI to follow SUSCEPTIBILITY RESULTS Escherichia coli Antibiotic LORI Dilut LORI Inter Ampicillin >16 Resistant Ampicillin/ 8/4 Susceptible Sulbactam Aztreonam <=4 Susceptible Cefazolin <=2 Susceptible Ciprofloxacin <=0.25 Susceptible Ertapenem <=0.5 Susceptible Gentamicin <=2 Susceptible ID Panel Not Not Applicable Applicable Imipenem <=1 Susceptible Levofloxacin <=0.5 Susceptible Meropenem <=1 Susceptible Minocycline <=4 Susceptible Nitrofurantoin <=32 Susceptible Piperacillin/ <=8 Susceptible Tazobactam Trimethoprim/ <=0.5/9.5 Susceptible Sulfa Order Comments O1: Urine Culture Added by Discern Performing Locations *1: This test was performed at: [address], [facility] [place]02-15-2024 Hospital Discharge instructions Patient Education 02/15/2024 18:55:42 Pyelonephritis, Female (Adult) Kidney Infection (Adult Female) An infection in one or both kidneys is called pyelonephritis. It usually happens when bacteria (or rarely, viruses, fungi, or other disease-causing organisms) get into the kidney. The bacteria (or other disease-causing organisms) can enter the kidneys from the bladder or blood traveling from other parts of the body. A kidney infection can become serious. It can cause severe illness, scarring ofthe kidneys, or kidney failure if not treated properly. Common causes for this problem include: Not keeping the genital area clean and dry, which promotes the growth of bacteria Wiping back to front which drags bacteria from the rectum toward the urinary opening (urethra) Wearing tight pants or underwear (this lets moisture build up in the genital area, which helps bacteria grow) Holding urine in for long periods of time Dehydration Kidney infections can cause symptoms similar to a bladder infection. Symptoms include: Pain (or burning) when urinating Having to urinate more often than usual Blood in the urine (pink or red) Abdominal pain or discomfort, usually in the lower abdomen Pain in the side or back Pain above the pubic bone Fever or chills Vomiting Loss of appetite Treatment is oral antibiotics, or in more severe cases, intramuscular or IV antibiotics. These are started right away and may be changed once urine culture results determine the infecting organisms. Treatment helps prevent a more serious kidney infection. Medicines Medicines can help in the treatment of a bladder infection: Take antibiotics until they are used up, even if you feel better. It is important to finish them tomake sure the infection is gone. Unless another medicine was prescribed, you can use [id number] medicines for pain, fever, or discomfort. If you have chronic liver of kidney disease, talk with your healthcare provider before using these medicines. Also talk with your provider if you've ever had a stomach ulcer or gastrointestinal (GI) bleeding, or are taking blood thinners. Home care The following are general care guidelines: Stay home from work or school. Rest in bed until your fever breaks and you are feeling better, or as advised by your healthcare provider. Drink lots of fluid unless you must restrict fluids for other medical reasons. This will force the medicine into your urinary system and flush the bacteria out of your body. Ask your healthcare provider how much you should drink. Don't have sex until you have finished all of your medicine and your symptoms are gone. Don't have caffeine, alcohol, or spicy foods. These foods may irritate the kidneys and bladder. Don't take bubble baths. Sensitivity to the chemicals in bubble baths can irritate the urethra. Make sure you wipe from front to back after using the toilet. Wear loose cloths and cotton underwear. Prevention These self-care steps can help prevent future infections: Drink plenty of fluids to prevent dehydration and flush out the bladder. Do this unless you must restrict fluids for other health reasons, or your healthcare provider told you not to. Proper cleaning after going to the bathroom in important. Make sure you wipe from front to back after using the toilet. Urinate more often. Don't try to hold urine in for a long time. Don't wear tight-fitting pants and underwear. Improve your diet to prevent constipation. Eat more fruits, vegetables, and fiber. Eat less junk and fatty foods. Constipation can make a urinary tract infection more likely. Talk with your healthcare provider if you have trouble with bowel movements. Urinate right after intercourse to flush out the bladder. Follow-up care Follow up with your healthcare provider, or as advised. Additional testing may be needed to make sure the infection has cleared. Close follow-up and further testing is very important to find the cause and to prevent future infections. If a urine culture was done, you will be contacted if your treatment needs to be changed. If directed, you may call to find out the results. If you had an X-ray, CT scan, or other diagnostic test, you will be notified of any new findings that may affect your care. Call 911 Call 911 if any of the following occur: Trouble breathing Fainting or loss of consciousness Rapid or very slow heart rate Weakness, dizziness, or fainting Difficulty arousing or confusion When to seek medical advice Call your healthcare provider right away if any of these occur: Fever 100.4 F (38 C) or higher, or as directed by your healthcare provider Not feeling better within 1 to 2 days after starting antibiotics Any symptom that continues after 3 days of treatment Increasing pain in the stomach, back, side, or groin area Repeated vomiting Not able to take prescribed medicine due to nausea or another reason Bloody, dark-colored, or foul smelling urine Trouble urinating or decreased urine output No urine for 8 hours, no tears when crying, sunken eyes, or dry mouth [id number] [employer]. [address] [place] [address]. All rights reserved. This information is not intended as a substitute for professional medical care. Always follow yourhealthcare professional's instructions. Follow Up Care 02/15/2024 16:20:22 With:LASHAWN AVILA DO Address: [facility] [place] [address]- When:2-4 days [facility] 05-03-2024 Note Discharge Instructions Thank you for allowing [facility] to assist you with your healthcare needs. The following is importantdischarge information regarding your hospital visit. Diagnosis from Today's Visit Back pain Pyelonephritis What to Do Next Instructions from Your Care Team No qualifying data available. Post Acute Orders No qualifying data available. You Need to Schedule the Following Appointments Follow Up with LASHAWN AVILA DO When Within 2-4 days Where: [place] [id number]- Allergies amoxicillin (Rash) Medications Please ask your primary doctor or pharmacist before taking any other medication not listed, including over the counter drugs, herbal medications, vitamins and or supplements as they may interact withyour home medications. What How Much When Instructions Last Dose New cefdinir (cefdinir 300 mg oral capsule) 1 cap by mouth Every 12 hours Duration: 10 Days Printed Prescription New ondansetron (ondansetron 4 mg oral disintegrating strip) 1 Each by mouth Three (3) times a day Printed Prescription Unchanged buprenorphine-naloxone (buprenorphine-naloxone 8 mg-2 mg sublingual film) 2 Each under the tongue Once a day Unchanged buPROPion (buPROPion 150 mg/ 24 hours (XL) oral tablet, extended release) 1 tab(s) by mouth Every 24 hours Unchanged citalopram (CeleXA 20 mg oral tablet) 1 tab(s) by mouth Once a day Unchanged LORazepam (LORazepam 1 mg oral tablet) 1 tab(s) by mouth Two (2) times a day Please take this list to your next doctor s visit. Bring all medications you take, including over the counter medications, herbals and other supplements with you to your doctor s visit. Patients and families are reminded to discard old lists and to update any records with all medication providers or retail pharmacies. Medication Leaflets ondansetron (oral) (on JANIYA diaz) What is the most important information I should know about ondansetron? You should not use ondansetron if you are also using apomorphine (Apokyn). What is ondansetron? Ondansetron blocks the actions of chemicals in the body that can trigger nausea and vomiting. Ondansetron is used to prevent nausea and vomiting that may be caused by surgery, cancer chemotherapy, or radiation treatment. Ondansetron may be used for purposes not listed in this medication guide. What should I discuss with my health care provider before taking ondansetron? You should not use ondansetron if: you are also using apomorphine (Apokyn); or you are allergic to ondansetron or similar medicines (dolasetron, granisetron, palonosetron). To make sure ondansetron is safe for you, tell your doctor if you have: liver disease; an electrolyte imbalance (such as low levels of potassium or magnesium in your blood); congestive heart failure, slow heartbeats; a personal or family history of long QT syndrome; or a blockage in your digestive tract (stomach or intestines). Ondansetron is not expected to harm an unborn baby. Tell your doctor if you are . It is not known whether ondansetron passes into breast milk or if it could harm a nursing baby. Tell your doctor if you are breast-feeding a baby. Ondansetron is not approved for use by anyone younger than 4 years old. Ondansetron orally disintegrating tablets may contain phenylalanine. Tell your doctor if you have phenylketonuria (PKU). How should I take ondansetron? Follow all directions on your prescription label. Do not take this medicine in larger or smaller amounts or for longer than recommended. Ondansetron can be taken with or without food. The first dose of ondansetron is usually taken before the start of your surgery, chemotherapy, or radiation treatment. Follow your doctor's dosing instructions very carefully. Take the ondansetron regular tablet with a full glass of water. To take the orally disintegrating tablet (Zofran ODT): Keep the tablet in its blister pack until you are ready to take it. Open the package and peel back the foil. Do not push a tablet through the foil or you may damage the tablet. Use dry hands to remove the tablet and place it in your mouth. Do not swallow the tablet whole. Allow it to dissolve in your mouth without chewing. Swallow several times as the tablet dissolves. To use ondansetron oral soluble film (strip) (Zuplenz): Keep the strip in the foil pouch until you are ready to use the medicine. Using dry hands, remove the strip and place it on your tongue. It will begin to dissolve right away. Do not swallow the strip whole. Allow it to dissolve in your mouth without chewing. Swallow several times after the strip dissolves. If desired, you may drink liquid to help swallow the dissolved strip. Wash your hands after using Zuplenz. Measure liquid medicine with the dosing syringe provided, or with a special dose-measuring spoon ormedicine cup. If you do not have a dose-measuring device, ask your pharmacist for one. Store at room temperature away from moisture, heat, and light. Store liquid medicine in an upright position. What happens if I miss a dose? Take the missed dose as soon as you remember. Skip the missed dose if it is almost time for your next scheduled dose. Do not take extra medicine to make up the missed dose. What happens if I overdose? Seek emergency medical attention or call the Poison Help line at . Overdose symptoms may include sudden loss of vision, severe constipation, feeling light-headed, or fainting. What should I avoid while taking ondansetron? Ondansetron may impair your thinking or reactions. Be careful if you drive or do anything that requires you to be alert. What are the possible side effects of ondansetron? Get emergency medical help if you have signs of an allergic reaction: rash, hives; fever, chills, difficult breathing; swelling of your face, lips, tongue, or throat. Call your doctor at once if you have: severe constipation, stomach pain, or bloating; headache with chest pain and severe dizziness, fainting, fast or pounding heartbeats; fast or pounding heartbeats; jaundice (yellowing of the skin or eyes); blurred vision or temporary vision loss (lasting from only a few minutes to several hours); high levels of serotonin in the body--agitation, hallucinations, fever, fast heart rate, overactivereflexes, nausea, vomiting, diarrhea, loss of coordination, fainting. Common side effects may include: diarrhea or constipation; headache; drowsiness; or tired feeling. This is not a complete list of side effects and others may occur. Call your doctor for medical advice about side effects. You may report side effects to FDA at 9-068-JJG-5310. What other drugs will affect ondansetron? Ondansetron can cause a serious heart problem, especially if you use certain medicines at the same time, including antibiotics, antidepressants, heart rhythm medicine, antipsychotic medicines, and medicines to treat cancer, malaria, HIV or AIDS. Tell your doctor about all medicines you use, and those you start or stop using during your treatment with ondansetron. Taking ondansetron while you are using certain other medicines can cause high levels of serotonin to build up in your body, a condition called 'serotonin syndrome,' which can be fatal. Tell your doctor if you also use: medicine to treat depression; medicine to treat a psychiatric disorder; a narcotic (opioid) medication; or medicine to prevent nausea and vomiting. This list is not complete and many other drugs can interact with ondansetron. This includes prescription and opuo-puv-uilihel medicines, vitamins, and herbal products. Give a list of all your medicines to any healthcare provider who treats you. Where can I get more information? Your pharmacist can provide more information about ondansetron. Remember, keep this and all other medicines out of the reach of children, never share your medicines with others, and use this medication only for the indication prescribed. Every effort has been made to ensure that the information provided by [employer]. [employer]') is accurate, up-to-date, and complete, but no guarantee is made to that effect. Drug information contained herein may be time sensitive. [employer] information has been compiled for use by healthcare practitioners and consumers in the [place] and therefore [employer] does not warrant that uses outside of the [place] are appropriate, unless specifically indicated otherwise. [facility] drug information does not endorse drugs, diagnose patients or recommend therapy. [facility] drug information isan informational resource designed to assist licensed healthcare practitioners in caring for their p atients and/or to serve consumers viewing this service as a supplement to, and not a substitute for, the expertise, skill, knowledge and judgment of healthcare practitioners. The absence of a warningfor a given drug or drug combination in no way should be construed to indicate that the drug or drug combination is safe, effective or appropriate for any given patient. [employer] does not assume any responsibility for any aspect of healthcare administered with the aid of information [employer] provides. The information contained herein is not intended to cover all possible uses, directions, precautions, warnings, drug interactions, allergic reactions, or adverse effects. If you have questions about the drugs you are taking, check with your doctor, nurse or pharmacist. Copyright 4988-7089 [employer]. Version: 16.. Revision Date: 05/17/2023. cefdinir (ROEL galdamezh alonzo) What is the most important information I should know about cefdinir? Do not take this medicine if you are allergic to cefdinir, or to similar antibiotics, such as Ceftin, Cefzil, Keflex, and others. What is cefdinir? Cefdinir is a cephalosporin (SEF a low spor in) antibiotic that is used to treat many different types of infections caused by bacteria. Cefdinir may also be used for purposes not listed in this medication guide. What should I discuss with my healthcare provider before taking cefdinir? You should not take this medicine if you are allergic to cefdinir or any other cephalosporin antibiotic (cefadroxil, cefprozil, cefazolin, cefalexin, Keflex, and others). Tell your doctor if you have ever had: kidney disease (or if you are on dialysis); intestinal problems, such as colitis; or an allergy to any drugs (especially penicillins). Cefdinir liquid contains sucrose. Talk to your doctor before using this form of cefdinir if you have diabetes. Tell your doctor if you are or . How should I take cefdinir? Follow all directions on your prescription label and read all medicine guides or instruction sheets. Use the medicine exactly as directed. Shake the oral suspension (liquid) before you measure a dose. Use the dosing syringe provided, or use a medicine dose-measuring device (not a kitchen spoon). You may take cefdinir with or without food. Use this medicine for the full prescribed length of time, even if your symptoms quickly improve. Skipping doses can increase your risk of infection that is resistant to medication. Cefdinir will not treat a viral infection such as the flu or a common cold. Cefdinir can affect the results of certain medical tests. Tell any doctor who treats you that you are using cefdinir. Store at room temperature away from moisture and heat. Throw away any unused cefdinir liquid that is older than 10 days. What happens if I miss a dose? Take the medicine as soon as you can, but skip the missed dose if it is almost time for your next dose. Do not take two doses at one time. What happens if I overdose? Seek emergency medical attention or call the Poison Help line at . Overdose symptoms may include nausea, vomiting, stomach pain, diarrhea, or a seizure. What should I avoid while taking cefdinir? Avoid using antacids or mineral supplements that contain aluminum, magnesium, or iron within 2 hours before or after taking cefdinir. Antacids or iron can make it harder for your body to absorb cefdinir. This does not include baby formula fortified with iron. Antibiotic medicines can cause diarrhea, which may be a sign of a new infection. If you have diarrhea that is watery or bloody, call your doctor before using anti-diarrhea medicine. What are the possible side effects of cefdinir? Get emergency medical help if you have signs of an allergic reaction (hives, difficult breathing, swelling in your face or throat) or a severe skin reaction (fever, sore throat, burning eyes, skin pain, red or purple skin rash with blistering and peeling). Call your doctor at once if you have: severe stomach pain, diarrhea that is watery or bloody (even if it occurs months after your last dose); fever, chills, body aches, flu symptoms; pale skin, easy bruising, unusual bleeding; seizure (convulsions); fever, weakness, confusion; dark colored urine, jaundice (yellowing of the skin or eyes); or kidney problems--little or no urination, swelling in your feet or ankles, feeling tired or short ofbreath. Common side effects may include: nausea, vomiting, stomach pain, diarrhea; vaginal itching or discharge; headache; or rash (including diaper rash in an infant taking liquid cefdinir. This is not a complete list of side effects and others may occur. Call your doctor for medical advice about side effects. You may report side effects to FDA at 5-336-VOO-2561. What other drugs will affect cefdinir? Tell your doctor about all your other medicines, especially: probenecid; or vitamin or mineral supplements that contain iron. This list is not complete. Other drugs may affect cefdinir, including prescription and oulc-riy-frjopqa medicines, vitamins, and herbal products. Not all possible drug interactions are listed here. Where can I get more information? Your pharmacist can provide more information about cefdinir. Remember, keep this and all other medicines out of the reach of children, never share your medicines with others, and use this medication only for the indication prescribed. Every effort has been made to ensure that the information provided by [employer]. [employer]') is accurate, up-to-date, and complete, but no guarantee is made to that effect. Drug information contained herein may be time sensitive. [employer] information has been compiled for use by healthcare practitioners and consumers in the [place] and therefore [employer] does not warrant that uses outside of the [place] are appropriate, unless specifically indicated otherwise. [facility] drug information does not endorse drugs, diagnose patients or recommend therapy. [facility] drug information isan informational resource designed to assist licensed healthcare practitioners in caring for their p atients and/or to serve consumers viewing this service as a supplement to, and not a substitute for, the expertise, skill, knowledge and judgment of healthcare practitioners. The absence of a warningfor a given drug or drug combination in no way should be construed to indicate that the drug or drug combination is safe, effective or appropriate for any given patient. [employer] does not assume any responsibility for any aspect of healthcare administered with the aid of information [employer] provides. The information contained herein is not intended to cover all possible uses, directions, precautions, warnings, drug interactions, allergic reactions, or adverse effects. If you have questions about the drugs you are taking, check with your doctor, nurse or pharmacist. Copyright 9171-2816 [facility]. Version: 9.01. Revision Date: 05/18/2023. Education Materials Kidney Infection (Adult Female) An infection in one or both kidneys is called pyelonephritis. It usually happens when bacteria (or rarely, viruses, fungi, or other disease-causing organisms) get into the kidney. The bacteria (or other disease-causing organisms) can enter the kidneys from the bladder or blood traveling from other parts of the body. A kidney infection can become serious. It can cause severe illness, scarring ofthe kidneys, or kidney failure if not treated properly. Common causes for this problem include: Not keeping the genital area clean and dry, which promotes the growth of bacteria Wiping back to front which drags bacteria from the rectum toward the urinary opening (urethra) Wearing tight pants or underwear (this lets moisture build up in the genital area, which helps bacteria grow) Holding urine in for long periods of time Dehydration Kidney infections can cause symptoms similar to a bladder infection. Symptoms include: Pain (or burning) when urinating Having to urinate more often than usual Blood in the urine (pink or red) Abdominal pain or discomfort, usually in the lower abdomen Pain in the side or back Pain above the pubic bone Fever or chills Vomiting Loss of appetite Treatment is oral antibiotics, or in more severe cases, intramuscular or IV antibiotics. These are started right away and may be changed once urine culture results determine the infecting organisms. Treatment helps prevent a more serious kidney infection. Medicines Medicines can help in the treatment of a bladder infection: Take antibiotics until they are used up, even if you feel better. It is important to finish them tomake sure the infection is gone. Unless another medicine was prescribed, you can use gtun-itc-nfvrkou medicines for pain, fever, or discomfort. If you have chronic liver of kidney disease, talk with your healthcare provider before using these medicines. Also talk with your provider if you've ever had a stomach ulcer or gastrointestinal (GI) bleeding, or are taking blood thinners. Home care The following are general care guidelines: Stay home from work or school. Rest in bed until your fever breaks and you are feeling better, or as advised by your healthcare provider. Drink lots of fluid unless you must restrict fluids for other medical reasons. This will force the medicine into your urinary system and flush the bacteria out of your body. Ask your healthcare provider how much you should drink. Don't have sex until you have finished all of your medicine and your symptoms are gone. Don't have caffeine, alcohol, or spicy foods. These foods may irritate the kidneys and bladder. Don't take bubble baths. Sensitivity to the chemicals in bubble baths can irritate the urethra. Make sure you wipe from front to back after using the toilet. Wear loose cloths and cotton underwear. Prevention These self-care steps can help prevent future infections: Drink plenty of fluids to prevent dehydration and flush out the bladder. Do this unless you must restrict fluids for other health reasons, or your healthcare provider told you not to. Proper cleaning after going to the bathroom in important. Make sure you wipe from front to back after using the toilet. Urinate more often. Don't try to hold urine in for a long time. Don't wear tight-fitting pants and underwear. Improve your diet to prevent constipation. Eat more fruits, vegetables, and fiber. Eat less junk and fatty foods. Constipation can make a urinary tract infection more likely. Talk with your healthcare provider if you have trouble with bowel movements. Urinate right after intercourse to flush out the bladder. Follow-up care Follow up with your healthcare provider, or as advised. Additional testing may be needed to make sure the infection has cleared. Close follow-up and further testing is very important to find the cause and to prevent future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 CURETTAGE DX&/THER NONOBSTETRIC 11/06/2010 Dilation & [place] DILATION & CURETTAGE DX&/THER NONOBSTETRIC 01/23 Missed AB LAPAROSCOPY DIAGNOSTIC 01/23 Uterine perforation at time of D&C FAMILY HISTORY Problem Relation Age of Onset Alcohol/Drug Father Lipids Maternal Grandmother Emphysema Maternal Grandfather Asthma Brother Social History Tobacco Use Smoking status: Every Day Packs/day: 0.30 Years: 4.00 Additional pack years: 0.00 Total pack years: 1.20 Types: Cigarettes Start date: 11/06/2013 Smokeless tobacco: Never Substance Use Topics Alcohol use: No Drug use: No Comment: HX OF PERCOCET, VICODIN AND OXCOTIN Objective BP 104/60 Pulse 63 Temp 36.6 C (97.9 F) Resp 21 Wt 81.5 kg (179 lb 9.6 oz) LMP 08/18/2022 SpO2 98% BMI 26.91 kg/m Physical Exam Vitals reviewed. Constitutional: Appearance: Normal appearance. HENT: Head: Normocephalic and atraumatic. Cardiovascular: Rate and Rhythm: Normal rate and regular rhythm. Heart sounds: Normal heart sounds. Pulmonary: Effort: Pulmonary effort is normal. Breath sounds: Normal breath sounds. Abdominal: General: Abdomen is flat. Palpations: Abdomen is soft. Tenderness: There is no abdominal tenderness. There is no right CVA tenderness, left CVA tendernessor guarding. Musculoskeletal: Cervical back: Neck supple. Skin: General: Skin is warm and dry. Findings: No rash. Neurological: Mental Status: She is alert. Assessment and Plan ASSESSMENT/PLAN: 1. Acute UTI - ICD9: 599.0, ICD10: N39.0 recurrent - UA positive for lexy esterase, hematuria, proteinuria, - Send urine for culture - Begin treatment with Macrobid 100 mg BID for 5 days - UA DIP, URINE (POC) - URINE CULTURE - CONSULT TO UROLOGY-patient has had 4 UTIs in the past year. Discussed follow- up with urology. Given referral to [facility] urology and also Dr. Brittany Rodriguez. Haley Morrison PA-C documented in [facility] encounter[facility] [place] Instructions* Patient Instructions* Haley Morrison PA-C - 06/06/2023 8:[address] Brittany Rodriguez documented in this encounter[facility] [place]23 Miscellaneous Notes* Telephone Encounter - Tamika Brito - 01/23/2023 12:56 PM EDT Patient given results and verbalized understanding of instructions given. Tamika Brito * Telephone Encounter - Dulce Maradiaga APRN.LULU - 01/23/2023 12:24 PM EDT Please call and tell patient she is negative for BV and if symptoms persist she should follow up with [facility]. documented in this encounter[facility] [place] History of Present illness Narrative* Dulce Maradiaga APRN.LULU - 01/22/2023 5:58 PM EDT CC: Patient presents with: UTI: Burning , frequency x 4 days, wants tested for BV HPI Pennie Koenig is a 28 year old female who presents with complaint of possible UTI. These symptoms have been present for 4 days. Associated symptoms: burning and foul smelling urine Denies: backpain, pressure, fever, chills, sweats, abnormal vaginal discharge, and vaginal itching Treatments: nothing The ROS was otherwise negative. PMH, Medications, labs, allergies, and recent past visits with PCP were reviewed and updated as able. PHYSICAL EXAM: BP 100/72 Pulse 61 Temp 36.4 C (97.6 F) Resp 21 Wt 82.7 kg (182 lb 6.4 oz) LMP 08/18/2022 SpO2 98% BMI 27.33 kg/m General: Well appearing and alert CV: Regular rate and rhythm without obvious murmur Lungs: clear to auscultation bilaterally Back: straight and symmetric Abdomen: soft, nontender, nondistended PAST MEDICAL HISTORY Diagnosis Date Abnormal Pap smear of cervix 2012 DR NIXON ADHD (attention deficit hyperactivity disorder) Chlamydia 2012 Depression Genital herpes History of drug abuse (HCC) non-IV. inpatient treatment 2012 Migraine, unspecified, with intractable migraine, so stated, without mention of status migrainosus Migraine without aura RECURRENT UTI Rh incompatibility Rh negative status during 11/18/2013 Urinary tract infection, site not specified Recurrent UTI's PAST SURGICAL HISTORY Procedure Laterality Date DILATION & CURETTAGE DX&/THER NONOBSTETRIC 11/06/2010 Dilation & curettage DILATION & CURETTAGE DX&/THER NONOBSTETRIC 01/23 Missed AB LAPAROSCOPY DIAGNOSTIC 01/23 Uterine perforation at time of D&C ALLERGIES Amoxacillin [Amoxicillin] MEDICATIONS acyclovir (ZOVIRAX) 400 mg tablet Take 400 mg by mouth twice daily. citalopram (CELEXA) 20 mg tablet Take 30 mg by mouth once daily. nitrofurantoin monohydrate and macrocrystal (MACROBID) 100 mg capsule Take 1 capsule by mouth twicedaily for 5 days. Miconazole Nitrate (MONISTAT 3) 200 mg/5 gram (4 %) crea Use 1 Applicator vaginally once daily for 3 days. sertraline (ZOLOFT) 50 mg tablet Take 50 mg by mouth once daily. (Patient not taking: Reported on 06/13/2022) norgestimate 0.25 mg-ethinyl estradiol 35 mcg (SPRINTEC) 0.25-35 mg-mcg per tablet Take 1 tablet bymouth once daily. (Patient not taking: Reported on 04/21/2019 ) FAMILY HISTORY Problem Relation Age of Onset Alcohol/Drug Father Lipids Maternal Grandmother Emphysema Maternal Grandfather Asthma Brother Social History Tobacco Use Smoking status: Every Day Packs/day: 0.30 Years: 4.00 Pack years: 1.20 Types: Cigarettes Start date: 11/06/2013 Smokeless tobacco: Never Substance Use Topics Alcohol use: No Drug use: No Comment: HX OF PERCOCET, VICODIN AND OXCOTIN ASSESSMENT/PLAN: 1. Burning with urination - ICD9: 788.1, ICD10: R30.0 (primary diagnosis) - UA DIP, URINE (POC) - URINE CULTURE - BACTERIAL VAGINOSIS AMPLIFICATION 2. Recurrent UTI (urinary tract infection) - ICD9: 599.0, ICD10: N39.0 - NITROFURANTOIN MONOHYDRATE & MACROCRYSTAL 100 MG ORAL CAP No treatment for BV at this time please treat if BV test comes back positive Prescribe Monistat per patient's request she usually gets yeast infections. Patient did want Diflucan did instruct her that it interacts with her Celexa and she should call her [facility] if they usually prescribe that for her. Prescription instructions reviewed with patient as applicable. Potential red flag symptoms discussed with the patient. Reviewed appropriate action plan to take if red flag symptoms occur. Patient agreeable to treatment plan. Dulce Maradiaga APRN.LULU documented in this encounter[facility] [place] Hospital Discharge instructions Patient Education 11/07/2022 07:47:57 Pharyngitis, Strep (Presumed) Pharyngitis: Strep (Presumed) You have pharyngitis (sore throat). The healthcare staff think your sore throat is caused by streptococcus (strep) bacteria. This is often called strep throat. Strep throat can cause throat pain thatis worse when swallowing, aching all over, headache, and fever. The infection is contagious. It maybe spread by coughing, kissing, or touching others after touching your mouth or nose. Antibiotic medicine is given to treat the infection. Home care Rest at home. Drink plenty of fluids so you won t get dehydrated. Stay home from work or school for the first 2 days of taking the antibiotics. After this time, you will not be contagious. You can then return to work or school if you are feeling better. Take the antibiotic medicine for the full 10 days, even when you feel better. This is very important to make sure the infection is fully treated. It is also important to prevent medicine-resistant germs from growing. If you were given an antibiotic shot, no more antibiotics are needed. You may use acetaminophen or ibuprofen to control pain or fever, unless another medicine was prescribed for this. If you have chronic liver or kidney disease or ever had a stomach ulcer or GI bleeding, talk with your healthcare provider before using these medicines. Use throat lozenges or a throat-numbing spray to help reduce throat pain. Gargling with warm salt water can also help reduce throat pain. Dissolve 1/2 teaspoon of salt in 1 glass of warm water. Don t eat salty or spicy foods. These can irritate the throat. Follow-up care Follow up with your healthcare provider or our staff if you don't get better over the next week. When to seek medical advice Call your healthcare provider right away if any of these occur: Fever as directed by your healthcare provider New or worse ear pain, sinus pain, or headache Painful lumps in the back of neck Stiff neck Lymph nodes that get larger Can t swallow liquids, a lot of drooling, or can t open mouth wide due to throat pain Signs of dehydration, such as very dark urine or no urine, sunken eyes, dizziness Trouble breathing or noisy breathing Muffled voice New rash Prevention Here are steps you can take to help prevent an infection: Keep good hand washing habits. Don t have close contact with people who have sore throats, colds, or other upper respiratory infections. Don t smoke, and stay away from secondhand smoke. Stay up to date with of your vaccines. [id number] [employer]. [address] [place] [id number]. All rights reserved. This information is not intended as a substitute for professional medical care. Always follow yourhealthcare professional's instructions. Follow Up Care 11/07/2022 07:14:36 With:LASHAWN AVILA Address: [address] [place] [address] Business (1) When:5-7 days Comments:Schedule an appointment for follow-up if your symptoms or not improving.Push fluids, soft diet.Warmsalt water gargles, Chloraseptic spray and throat lozenges for symptomatic relief.Use Tylenol or Advil for pain and fever as needed.Use antibiotic (Z-Turner) as prescribed.Return to the ED if symptoms wo rsen. [facility] 01-24[facility]23 Note Discharge Instructions Thank you for allowing [facility] to assist you with your healthcare needs. The following is importantdischarge information regarding your hospital visit. Diagnosis from Today's Visit Sore throat - Adult What to Do Next Instructions from Your Care Team No qualifying data available. Post Acute Orders No qualifying data available. You Need to Schedule the Following Appointments Follow Up with LASHAWN AVILA When Within 5-7 days Why: Schedule an appointment for follow-up if your symptoms or not improving. Push fluids, soft diet. Warm salt water gargles, Chloraseptic spray and throat lozenges for symptomatic relief. Use Tylenol or Advil for pain and fever as needed. Use antibiotic (Z-Turner) as prescribed. Return to the ED if symptoms worsen. Where: [facility] [place] [address] [facility] (1) Allergies amoxicillin (Rash) Medications Please ask your primary doctor or pharmacist before taking any other medication not listed, including over the counter drugs, herbal medications, vitamins and or supplements as they may interact withyour home medications. What How Much When Why Instructions Last Dose New azithromycin (Azithromycin 5 Day Dose Pack 250 mgoral tablet) Take two (2) tablets day 1-then one (1) tablet by mouth Every day Duration: 5 Days Printed Prescription Unchanged ALPRAZolam (ALPRAZolam 0.5 mg oral tablet) Unchanged citalopram (CeleXA 20 mg oral tablet) 1 tab(s) by mouth Once a day Unchanged doxycycline (doxycycline hyclate 100 mg oral capsule) 1 cap by mouth Two (2) times a day Foreign body Duration: 7 Days Unchanged multivitamin, ( MR 90) 1 tab(s) by mouth Every day Please take this list to your next doctor s visit. Bring all medications you take, including over the counter medications, herbals and other supplements with you to your doctor s visit. Patients and families are reminded to discard old lists and to update any records with all medication providers or retail pharmacies. Education Materials Pharyngitis: Strep (Presumed) You have pharyngitis (sore throat). The healthcare staff think your sore throat is caused by streptococcus (strep) bacteria. This is often called strep throat. Strep throat can cause throat pain thatis worse when swallowing, aching all over, headache, and fever. The infection is contagious. It maybe spread by coughing, kissing, or touching others after touching your mouth or nose. Antibiotic medicine is given to treat the infection. Home care Rest at home. Drink plenty of fluids so you won t get dehydrated. Stay home from work or school for the first 2 days of taking the antibiotics. After this time, you will not be contagious. You can then return to work or school if you are feeling better. Take the antibiotic medicine for the full 10 days, even when you feel better. This is very important to make sure the infection is fully treated. It is also important to prevent medicine-resistant germs from growing. If you were given an antibiotic shot, no more antibiotics are needed. You may use acetaminophen or ibuprofen to control pain or fever, unless another medicine was prescribed for this. If you have chronic liver or kidney disease or ever had a stomach ulcer or GI bleeding, talk with your healthcare provider before using these medicines. Use throat lozenges or a throat-numbing spray to help reduce throat pain. Gargling with warm salt water can also help reduce throat pain. Dissolve 1/2 teaspoon of salt in 1 glass of warm water. Don t eat salty or spicy foods. These can irritate the throat. Follow-up care Follow up with your healthcare provider or our staff if you don't get better over the next week. When to seek medical advice Call your healthcare provider right away if any of these occur: Fever as directed by your healthcare provider New or worse ear pain, sinus pain, or headache Painful lumps in the back of neck Stiff neck Lymph nodes that get larger Can t swallow liquids, a lot of drooling, or can t open mouth wide due to throat pain Signs of dehydration, such as very dark urine or no urine, sunken eyes, dizziness Trouble breathing or noisy breathing Muffled voice New rash Prevention Here are steps you can take to help prevent an infection: Keep good hand washing habits. Don t have close contact with people who have sore throats, colds, or other upper respiratory infections. Don t smoke, and stay away from secondhand smoke. Stay up to date with of your vaccines. 2985-7221 [employer]. [address] [place] [address]. All rights reserved. This information is not intended as a substitute for professional medical care. Always follow yourhealthcare professional's instructions. Additional Information VACCINATE! IT SAVES LIVES! Members of the community who have not yet received the COVID-19 vaccine and would like to receive it can visit one of [facility] vaccine clinics. There are many vaccine clinic locations within the [facility]. For locations and available times, please visit [email or web address]. It is important to note that some COVID mobile vaccine clinics are held outdoors and may be canceled in rainy orstormy conditions. To learn more about pediatric vaccinations (ages 5-11), we invite you to visit the [facility] webpage. [email or web address]/[email or web address] [email or web address] learn more about the COVID-19 vaccine, we invite you to visit the [employer] website for a list of frequently asked questions. [email or web address] [facility] OneChart Patient Portal Access Instructions: Stay connected with your healthcare team and access your personal medical information anytime with the [facility] Patient Portal. If you would like a full copy of your medical records please contact the [facility] Medical Records Department Sunday through Sunday between 8a.m. and 4:30p.m. Please follow the directions below to access the portal: 1.Access the email account you provided upon registration to the [facility].2.Look for an invitation email from [facility].3.Open the email and access the invitation link: Accept Invitation to [facility]4.Fill in the required spence to create your account. Sign into [email or web address] with your username and password that you created in the above steps to stay up to date. You can then view a summary of results, a summary of your visits, and the ability to download your summaries to your computer or send the information securely to a physician. Remember that your healthcare information is confidential, so carefully consider who you will allow to register on the [facility] Patient Portal for access to your information. You can also access the [facility] Patient Portal on the [employer]. Simply click on Health Records under [employer] and then click on the [facility] logo. HOW TO SAFELY DISPOSE OF PRESCRIPTION MEDICATIONS Please use one of the following methods to safely dispose of your unused medications. 1.Use a drug disposal kit: the drug disposal pouch allows you to safely discard your old and unuseddrugs. Ask your nurse to give you one when you are discharged.2.Visit a local take-back location: Many local pharmacies and police departments have programs that collect old and unwanted prescriptiondrugs. Call your local pharmacy or go to http://bewarket.SinDelantal.Mx/9R3So6k to find one close to you.3.Make use of household items: Use cat litter or old coffee grounds to dispose medications if other options arenot available. Mix your drugs with these household products, seal them in an airtight container andthrow it into the garbage. Call [facility]: [phone] to be sure your drugs can be disposed of in this way. Some medicines may require a different approach.4.Never flush your medications down the toilet. IF YOU HAVE BEEN PRESCRIBED AN OPIOIDS FOR PAIN If you have been prescribed an opioid (such as hydrocodone, oxycodone or morphine), it is critical to understand the possible side effects and risks of opioid pain medications. Even when taken as directed, opioids can have several side effects including: Tolerance, meaning you might need to take more of a medication for the same pain relief. Nausea, vomiting and/or constipation. Sleepiness, dizziness, dry mouth, confusion, depression or itching. Physical dependence, meaning you have withdrawal symptoms when a medication is stopped ? this can develop within a few days. KNOW YOUR RESPONSIBILITIES It is important to know exactly how much and how often to take the opioid pain medications you are prescribed. Never take opioids in higher amounts or more often than prescribed. Do not combine opioids with alcohol or other drugs that cause drowsiness, such as benzodiazepines, also known as benzos,including diazepam and alprazolam, muscle relaxants or sleep aids. Never sell or share prescriptionopioids. This is illegal. Store opioids in a secure place and out of reach of others (including children, family, friends and visitors). The last page(s) of this document has been signed and retained as a CHART COPY Signatures Patient Education Materials Pharyngitis, Strep (Presumed) Medication Leaflets My discharge plan and instructions have been reviewed and explained to me and I,PENNIE KOENIG M understand my current condition and have read and understand these discharge instructions. I have received a written copy of the plan/instructions. If I have questions, I am aware that I should contact my doctor. Patient/Doctor Of Nurse Anesthesia Signature: Date/Time: Relationship to Patient: Witness Name/Signature: Date/Time: [facility]01-10-2023 History of Present illness Narrative * KASIA Rich - 10/24/2022 10:09 AM EST This note was created using Ziebelriter. Subjective Pennie Koenig is a 27 year old female. HPI 27-year-old female presents for sore throat. Patient states she started getting a sore throat 3days ago. She has no cough, congestion, fevers or other URI symptoms. She states that she has a history of strep. No recent antibiotics. She has tolerated Keflex in the past. She does have an allergyto penicillin-rash. Review of Systems Constitutional: Negative for chills and fever. HENT: Positive for sore throat. Negative for congestion and ear pain. Respiratory: Negative for cough and shortness of breath. Cardiovascular: Negative for chest pain. Gastrointestinal: Negative for diarrhea and vomiting. Objective BP 128/74 Pulse 95 Temp 36.7 C (98.1 F) (Tympanic) Resp 16 Wt 78.3 kg (172 lb 9.6 oz) 08/18/2022 SpO2 98% BMI 25.86 kg/m Physical Exam Vitals and nursing note reviewed. Constitutional: General: She is not in acute distress. Appearance: Normal appearance. She is not toxic-appearing. HENT: Right Ear: Tympanic membrane and ear canal normal. Left Ear: Tympanic membrane and ear canal normal. Nose: Nose normal. Mouth/Throat: Mouth: Mucous membranes are moist. Pharynx: Uvula midline. Posterior oropharyngeal erythema present. Tonsils: Tonsillar exudate present. 2+ on the right. 2+ on the left. Comments: 2+ bilateral tonsillar swelling with exudates. Uvula midline. Handling secretions. No trismus. Eyes: Conjunctiva/sclera: Conjunctivae normal. Cardiovascular: Rate and Rhythm: Normal rate and regular rhythm. Pulmonary: Effort: Pulmonary effort is normal. Breath sounds: Normal breath sounds. Neurological: Mental Status: She is alert. Assessment and Plan ASSESSMENT/PLAN: 1. Throat pain - ICD9: 784.1, ICD10: R07.0 (primary diagnosis) - STREP A MOLECULAR (POC) - strep + 2. Strep pharyngitis - ICD9: 034.0, ICD10: J02.0 - suspect strep - Rapid Strep positive in the office today - antibiotic as written- Keflex -patient states she has tolerated this in the past. Rash allergy with penicillin, but has taken Keflex in the past per patient. - Discussed supportive care treatment with fluids, rest and analgesia. Diagnosis and treatment plan were discussed and questions were answered to the patient's satisfaction. Pt acknowledged understanding of concepts and follow up plan. Specific signs and symptoms that would indicate the need for higher level of care were discussed in detail warranting prompt ER evaluation. KASIA Rich documented in this encounter[facility] [place] Instructions* Patient Instructions* KASIA Rich - 10/24/2022 10:06 AM EST [facility] [place] [id number] [place] [id number] Emergency Department Diagnosis: Assessment STREP INFECTIONS: Streptococcal bacteria can cause a sore throat, ear and sinus infections, and skin diseases. Strep throat is diagnosed by a special throat swab or culture test. These infections require either an antibiotic shot or an oral antibiotic medicine to get rid of all the bacteria and prevent rheumatic fever, a dangerous complication. The symptoms of Strep infection, however, usually get better after just 2-3 days of drug treatment. These infections are very contagious; any close contacts who have a fever, sore throat, or illness symptoms should see their doctor right away. Strep is no longer contagious after 24 hours of antibiotic treatment so you may return to school or work if your fever and pain are better in one day. Strep infections can cause serious complications including throat abscess, rheumatic fever and kidney disease, so be sure to take all your antibiotic medicine. See your doctor or return here if your symptoms worsen or are not improved in 3 days or for diffuculty breathing or inability to swallow. documented in this encounterSelect [facility] [place] Miscellaneous Notes* Telephone Encounter - Nazia Logan MA - 08/17/2022 3:33 PM EDT Pt was notified of the results. Pt verbalized understanding. Nazia Logan MA * Telephone Encounter - Tamika Brito - 08/15/2022 10:50 AM EDT Left message for patient to return call. Tamika Arandaley * Telephone Encounter - Debbie Peoples APRN.CNP - 08/15/2022 9:39 AM EDT This message is to inform you that the patient has not yet read the following message. (Notification date: August 12, 2022) Results From Debbie Peoples APRN.CNP To Pennie Koenig Sent and Delivered 08/11/2022 4:38 PM Hi Pennie, Your urine culture did not reveal growth. If your symptoms are improving, you can continue taking the antibiotic. If they are not, please stop taking antibiotic. Please follow up with your primary care doctor as you had blood in your urine. [facility] [place] MyChart User Last Read On Pennie Koenig Not Read documented in this encounterSelect [facility] [place] History of Present illness Narrative* Dulce Maradiaga APRN.CNP - 08/10/2022 12:45 PM EDT CC: Patient presents with: Urinary Problem HPI Pennie Koenig is a 27 year old female who presents with complaint of possible UTI. These symptoms have been present for 3 days. Associated symptoms: burning and urgency Denies: pressure, fever, chills, sweats, abdominal pain, and flank pain Treatments: had 2 doses of kelfex said she doies like it. The ROS was otherwise negative. PMH, Medications, labs, allergies, and recent past visits with PCP were reviewed and updated as able. PHYSICAL EXAM: BP 120/74 Pulse 78 Temp 37.1 C (98.8 F) Resp 18 Wt 80.2 kg (176 lb 12.8 oz) LMP 06/15/2022 (Approximate) SpO2 98% BMI 26.49 kg/m General: Well appearing and alert CV: Regular rate and rhythm without obvious murmur Lungs: clear to auscultation bilaterally Back: straight and symmetric Abdomen: no complains of abdominal pain PAST MEDICAL HISTORY Diagnosis Date Abnormal Pap smear of cervix 2012 DR NIXON ADHD (attention deficit hyperactivity disorder) Chlamydia 2012 Depression Genital herpes History of drug abuse (HCC) non-IV. inpatient treatment 2012 Migraine, unspecified, with intractable migraine, so stated, without mention of status migrainosus Migraine without aura RECURRENT UTI Rh incompatibility Rh negative status during 11/18/2013 Urinary tract infection, site not specified Recurrent UTI's PAST SURGICAL HISTORY Procedure Laterality Date DILATION & CURETTAGE DX&/THER NONOBSTETRIC 11/06/2010 Dilation & curettage DILATION & CURETTAGE DX&/THER NONOBSTETRIC 01/23 Missed AB LAPAROSCOPY DIAGNOSTIC 01/23 Uterine perforation at time of D&C ALLERGIES Amoxacillin [Amoxicillin] MEDICATIONS acyclovir (ZOVIRAX) 400 mg tablet Take 400 mg by mouth twice daily. citalopram (CELEXA) 20 mg tablet Take 30 mg by mouth once daily. nitrofurantoin monohydrate and macrocrystal (MACROBID) 100 mg capsule Take 1 capsule by mouth twicedaily for 5 days. sertraline (ZOLOFT) 50 mg tablet Take 50 mg by mouth once daily. (Patient not taking: Reported on 06/13/2022) norgestimate 0.25 mg-ethinyl estradiol 35 mcg (SPRINTEC) 0.25-35 mg-mcg per tablet Take 1 tablet bymouth once daily. (Patient not taking: Reported on 04/21/2019 ) FAMILY HISTORY Problem Relation Age of Onset Alcohol/Drug Father Lipids Maternal Grandmother Emphysema Maternal Grandfather Asthma Brother Social History Tobacco Use Smoking status: Former Packs/day: 0.30 Years: 4.00 Pack years: 1.20 Types: Cigarettes Start date: 11/06/2013 Smokeless tobacco: Never Substance Use Topics Alcohol use: No Drug use: No Comment: HX OF PERCOCET, VICODIN AND OXCOTIN ASSESSMENT/PLAN: 1. Urinary urgency - ICD9: 788.63, ICD10: R39.15 - UA DIP, URINE (POC) - URINE CULTURE Prescribed Macrobid twice a day for 5 days. Patient will stop taking her Keflex. Prescription instructions reviewed with patient as applicable. Potential red flag symptoms discussed with the patient. Reviewed appropriate action plan to take if red flag symptoms occur. Patient agreeable to treatment plan. Dulce Maradiaga APRN.CNP documented in this encounterSelect [facility] [place]22 Miscellaneous Notes* Telephone Encounter - Rosa Turner LPN - 06/15/2022 2:39 PM EDT Patient notified and verbalized understanding of instructions given.Rosa Turner LPN * Telephone Encounter - Rosa Turner LPN - 06/15/2022 2:39 PM EDT ----- Message from Alexandria Hu APRN.CNP sent at 06/14/2022 5:47 PM EDT ----- Urine culture did not show clear evidence of infection. She may continue to take antibiotic if it has been helpful. Recommend follow up with PCP to ensure hematuria has resolved. Alexandria Hu CNP documented in this encounterSelect [facility] [place]08-31-2022 Miscellaneous Notes* Telephone Encounter - Alexandria Hu APRN.CNP - 06/14/2022 9:27 AM EDT I advised patient of the positive trichomonas test. Rx for Flagyl sent to her pharmacy. Alexandria Hu APRN.CNP documented in this encounterSelect [facility] [place]08-30-[facility] History of Present illness Narrative* Keysha Jones PA-C - 06/13/2022 1:54 PM EDT 06/13/2022 Patient presents with: Urinary Problem: Frequency, burning, x4 days. Vaginal Problem: Vaginal odor x4 days. SUBJECTIVE: This is a 27 year old that is here today for Complaint(s) of urinary frequency and dysuria x 4 days. Also concerned about possible BV, states she was treated for this about 4 weeks ago and now having the same odor return. Has not been sexually active. She has had vaginal bleeding the last 4 weeks- following with [facility]. No bleeding today per patient. Denies fever/chills, abdominal pain, vaginal itching, abnormal vaginal itching. No chance of , patient has a tubal ligation. PAST MEDICAL HISTORY Diagnosis Date Abnormal Pap smear of cervix 2012 DR NIXON ADHD (attention deficit hyperactivity disorder) Chlamydia 2011 Depression Genital herpes History of drug abuse ([facility]) non-IV. inpatient treatment 2012 Migraine, unspecified, with intractable migraine, so stated, without mention of status migrainosus Migraine without aura RECURRENT UTI Rh incompatibility Rh negative status during 11/18/2013 Urinary tract infection, site not specified Recurrent UTI's ALLERGIES Amoxacillin [Amoxicillin] MEDICATIONS Current Outpatient Medications Medication Sig citalopram (CELEXA) 20 mg tablet Take 30 mg by mouth once daily. sertraline (ZOLOFT) 50 mg tablet Take 50 mg by mouth once daily. (Patient not taking: Reported on 06/13/2022) norgestimate 0.25 mg-ethinyl estradiol 35 mcg (SPRINTEC) 0.25-35 mg-mcg per tablet Take 1 tablet bymouth once daily. (Patient not taking: Reported on 04/21/2019 ) No current facility-administered medications for this visit. SOCIAL HISTORY Social History Tobacco Use Smoking status: Former Packs/day: 0.30 Years: 4.00 Pack years: 1.20 Types: Cigarettes Start date: 11/06/2013 Smokeless tobacco: Never Substance Use Topics Alcohol use: No Drug use: No Comment: HX OF PERCOCET, VICODIN AND OXCOTIN REVIEW OF SYSTEMS See HPI OBJECTIVE: BP 128/64 Pulse 62 Temp 36.7 C (98.1 F) Resp 18 Wt 82 kg (180 lb 12.8 oz) LMP 06/05/2022 SpO2 98% BMI 27.09 kg/m APPEARANCE Well appearing, alert, in no acute distress, well-hydrated, well nourished. ABDOMEN soft, non-tender FEMALE Normal external genitalia, normal vagina and normal vaginal tone, normal cervix, with small amount of bloody discharge, normal uterus, size and consistency, and normal adnexa without tenderness ASSESSMENT/PLAN: 1. Urinary frequency - ICD9: 788.41, ICD10: R35.0 (primary diagnosis) acute - UA positive for hematuria - Send urine for culture - Begin treatment with Macrobid 100 mg BID for 5 days - Patient education for prevention given - UA DIP, URINE (POC) - NITROFURANTOIN MONOHYDRATE & MACROCRYSTAL 100 MG ORAL CAP 2. Vaginal odor - ICD9: 625.8, ICD10: N89.8 R/o BV. Hold on treatment pending results Reviewed red flags and when to seek care sooner. - URINE CULTURE - BACTERIAL VAGINOSIS AMPLIFICATION - CHLOE / TRICHOMONAS AMPLIFICATION - GC/CHLAMYDIA DNA DET The patient indicates understanding of these issues and agrees with the plan. Reviewed red flags and when to seek care sooner. Keysha Jones PA-C documented in this encounterSelect [facility] [place]07-26-2022 NotePap Smear Specimen AdequacyJuly 2021 12:21pmComment.Satisfactory for evaluation. Endocervical and/or squamous metaplasticcells (endocervical component)are present.[facility] A#[id number] Work Phone: Comment on above:Satisfactory for evaluation. Endocervical and/or squamous metaplasticcells (endocervical component)are present.05-07-2022 Hospital Discharge instructions Patient Education 05/07/2022 10:44:50 Corneal Abrasion Corneal Abrasion You have received a scratch or scrape (abrasion) to your cornea. The cornea is the clear part in the front of the eye. This sensitive area is very painful when injured. You may make tears frequently,and your vision may be blurry until the injury heals. You may be sensitive to light. This part of the body heals quickly. You can expect the pain to go away within 24 to 48 hours. If the abrasion is large or deep, your doctor may apply an eye patch, although this is not always done. An antibiotic ointment or eye drops may also be used to prevent infection. Numbing drops may be used to relieve the pain temporarily so that your eyes can be examined. But these drops can t be prescribed for home use because that would prevent healing and lead to more serious problems. Also, if you can t feel your eye, there is a chance of accidentally injuring it furtherwithout knowing it. Home care A cold pack may be applied over the eye (or eye patch) for 20 minutes at a time, to reduce pain. Tomake a cold pack, put ice cubes in a plastic bag that seals at the top. Wrap the bag in a clean, thin towel or cloth. You may use acetaminophen or ibuprofen to control pain, unless another pain medicine was prescribed. Note: If you have chronic liver or kidney disease or have ever had a stomach ulcer or GI bleeding,talk with your doctor before using these medicines. Rest your eyes and don t read until symptoms are gone. If you use contact lenses, don t wear them until all symptoms are gone. If your vision is affected by the corneal abrasion or if an eye patch was applied, don t drive a motor vehicle or operate machinery until all symptoms are gone. You may have trouble judging distancesusing only one eye. If your eyes are sensitive to light, try wearing sunglasses, or stay indoors until symptoms go away. Follow-up care Follow up with your healthcare provider, or as advised. If no patch was put on your eye and the pain continues for more than 48 hours, you should have another exam. Contact your healthcare provider to arrange this. If your eye was patched and you were asked to remove the patch yourself, see your healthcare provider. Contact your healthcare provider if you still have pain after the patch is removed. If you were given a return appointment for patch removal and re-examination, be sure to keep the appointment. Leaving the patch in place longer than advised could be harmful. When to seek medical advice Call your healthcare provider right away if any of these occur. Increasing eye pain or pain that does not improve after 24 hours Discharge from the eye Increasing redness of the eye or swelling of the eyelids Worsening vision Symptoms get worse after the abrasion has healed [id number] [employer]. [address] [place] [address], [place] [address]. All rights reserved. This information is not intended as a substitute for professional medical care. Always follow yourhealthcare professional's instructions. Follow Up Care 05/07/2022 10:33:32 With:LASHAWN AVILA DO Address: [address] [place] [id number]- When:2-4 days [facility] Randy 07-24-2022 Emergency department Discharge summary Discharge Instructions Thank you for allowing [facility] to assist you with your healthcare needs. The following is importantdischarge information regarding your hospital visit. Diagnosis from Today's Visit Corneal abrasion Pain in eye What to Do Next Instructions from Your Care Team No qualifying data available. Post Acute Orders No qualifying data available. You Need to Schedule the Following Appointments Follow Up with LASHAWN AVILA DO When Within 2-4 days Where: [address] [place] [id number]- Allergies amoxicillin (Rash) Medications Please ask your primary doctor or pharmacist before taking any other medication not listed, including over the counter drugs, herbal medications, vitamins and or supplements as they may interact withyour home medications. What How Much When Why Instructions Last Dose New ketorolac ophthalmic (ketorolac 0.5% ophthalmic solution) 1 Drops Right eye Four (4) times a day as needed for as needed for itching Corneal abrasion Duration: 7 Days Printed Prescription New polymyxin B-trimethoprim ophthalmic (polymyxin B-trimethoprim 10,000 units-1 mg/ mL ophthalmic solution) 1 Drops Right eye Every 3 hours Corneal abrasion Duration: 7 Days Printed Prescription Unchanged ALPRAZolam (ALPRAZolam 0.5 mg oral tablet) Unchanged citalopram (CeleXA 20 mg oral tablet) 1 tab(s) by mouth Once a day Unchanged doxycycline (doxycycline hyclate 100 mg oral capsule) 1 cap by mouth Two (2) times a day Foreign body Duration: 7 Days Unchanged multivitamin, ( MR 90) 1 tab(s) by mouth Every day Please take this list to your next doctor s visit. Bring all medications you take, including over the counter medications, herbals and other supplements with you to your doctor s visit. Patients and families are reminded to discard old lists and to update any records with all medication providers or retail pharmacies. Medication Leaflets ketorolac ophthalmic (FRANCISCO toe ROLE ak off THAL juan jose) Acular, Acular LS, Acuvail What is the most important information I should know about ketorolac ophthalmic? Follow all directions on your medicine label and package. Tell each of your healthcare providers about all your medical conditions, allergies, and all medicines you use. What is ketorolac ophthalmic? Ketorolac is a nonsteroidal anti-inflammatory drug (NSAID) that works by reducing hormones that cause inflammation and pain in the body. Ketorolac ophthalmic (for the eye) is used to relieve eye itching caused by seasonal allergies. Ketorolac ophthalmic is also used to reduce swelling, pain, and burning or stinging after cataract surgery or corneal refractive surgery. Ketorolac ophthalmic may also be used for purposes not listed in this medication guide. What should I discuss with my healthcare provider before I use ketorolac ophthalmic? You should not use this medicine if you are allergic to ketorolac. Tell your doctor if you are allergic to any other NSAIDs, such as aspirin, ibuprofen (Advil, Motrin), naproxen (Aleve), celecoxib, diclofenac, indomethacin, meloxicam, and others. To make sure ketorolac ophthalmic is safe for you, tell your doctor if you have: a bleeding or blood-clotting disorder; diabetes; arthritis; glaucoma; dry eye syndrome; or a condition for which you take a blood thinner such as warfarin (Coumadin, Jantoven). It is not known whether this medicine will harm an unborn baby. Tell your doctor if you are . It is not known whether ketorolac ophthalmic passes into breast milk or if it could harm a nursing baby. Tell your doctor if you are breast-feeding a baby. Do not give this medicine to a child without medical advice. How should I use ketorolac ophthalmic? Follow all directions on your prescription label. Do not use this medicine in larger or smaller amounts or for longer than recommended. Ketorolac ophthalmic is used 2 to 4 times per day, depending on the condition you are treating. Follow your doctor's dosing instructions very carefully. Prolonged use of NSAID eye drops can lead to serious damage to your eyesight. For cataract surgery you will begin using the eye drops 1 day before surgery and continue for up to2 weeks afterward. For corneal refractive surgery the usual dosage is 4 times daily for up to 4 days after surgery. Do not use ketorolac ophthalmic while you are wearing contact lenses. Wash your hands before using the eye drops. To apply the eye drops: Tilt your head back slightly and pull down your lower eyelid to create a small pocket. Hold the dropper above the eye with the tip down. Look up and away from the dropper and squeeze out a drop. Close your eyes for 2 or 3 minutes with your head tipped down, without blinking or squinting. Gently press your finger to the inside corner of the eye for about 1 minute, to keep the liquid from draining into your tear duct. Use only the number of drops your doctor has prescribed. If you use more than one drop, wait about 5 minutes between drops. If using this medicine after single-eye surgery, use the drops only in the eye you are having surgery on. Wait at least 10 minutes before using any other eye drops your doctor has prescribed. Do not touch the tip of the eye dropper or place it directly on your eye. A contaminated dropper can infect your eye, which could lead to serious vision problems. Do not use the eye drops if the liquid has changed colors or has particles in it. Call your pharmacist for new medicine. Each single-use vial (bottle) of this medicine is for use in one eye only. Throw away after one use, even if there is still some medicine left in the vial. Store at room temperature away from moisture, heat, and light. Do not freeze. Keep the bottle tightly closed when not in use. If your medicine vials come in a foil pouch, store the vials inside the pouch and fold the ends closed. What happens if I miss a dose? Use the missed dose as soon as you remember. Skip the missed dose if it is almost time for your next scheduled dose. Do not use extra medicine to make up the missed dose. What happens if I overdose? An overdose of ketorolac ophthalmic is not expected to be dangerous. Seek emergency medical attention or call the Poison Help line at if anyone has accidentally swallowed the medication. What should I avoid while using ketorolac ophthalmic? While using this medication, do not wear any contact lens that has not been approved by your doctor. Do not use other eye medications unless your doctor tells you to. What are the possible side effects of ketorolac ophthalmic? Get emergency medical help if you have signs of an allergic reaction: hives; difficult breathing; swelling of your face, lips, tongue, or throat. Call your doctor at once if you have: severe burning, stinging, or itching of your eyes; a wound that will not heal; eye pain, redness, or watering; vision changes, increased sensitivity to light; white patches on your eyes; or crusting or drainage from your eyes. Common side effects may include: mild eye pain, stinging, or redness; blurred vision; watery eyes; swollen or puffy eyelids; or headache. This is not a complete list of side effects and others may occur. Call your doctor for medical advice about side effects. You may report side effects to FDA at 8-665-HIW-1710. What other drugs will affect ketorolac ophthalmic? It is not likely that other drugs you take orally or inject will have an effect on ketorolac used in the eyes. But many drugs can interact with each other. Tell each of your healthcare providers about all medicines you use, including prescription and nerc-uve-mrimobk medicines, vitamins, and herbalproducts. Where can I get more information? Your doctor or pharmacist can provide more information about ketorolac ophthalmic. Remember, keep this and all other medicines out of the reach of children, never share your medicines with others, and use this medication only for the indication prescribed. Every effort has been made to ensure that the information provided by [employer]. ('[employer]') is accurate, up-to-date, and complete, but no guarantee is made to that effect. Drug information contained herein may be time sensitive. [employer] information has been compiled for use by healthcare practitioners and consumers in the [place] and therefore [employer] does not warrant that uses outside of the [place] are appropriate, unless specifically indicated otherwise. [facility] drug information does not endorse drugs, diagnose patients or recommend therapy. [facility] drug information isan informational resource designed to assist licensed healthcare practitioners in caring for their p atients and/or to serve consumers viewing this service as a supplement to, and not a substitute for, the expertise, skill, knowledge and judgment of healthcare practitioners. The absence of a warningfor a given drug or drug combination in no way should be construed to indicate that the drug or drug combination is safe, effective or appropriate for any given patient. [employer] does not assume any responsibility for any aspect of healthcare administered with the aid of information [employer] provides. The information contained herein is not intended to cover all possible uses, directions, precautions, warnings, drug interactions, allergic reactions, or adverse effects. If you have questions about the drugs you are taking, check with your doctor, nurse or pharmacist. Copyright 1656-5189 [employer]. Version: 8.01. Revision Date: 05/03/2016. polymyxin B and trimethoprim ophthalmic (NOAM ee MIX in B and try METH oh prim off THAL juan jose) Polytrim What is the most important information I should know about polymyxin B and trimethoprim ophthalmic? Use only as directed. Tell your doctor if you use other medicines or have other medical conditions or allergies. What is polymyxin B and trimethoprim ophthalmic? Polymyxin B and trimethoprim ophthalmic (for use in the eyes) is a combination medicine used to treat eye infections caused by bacteria. Polymyxin B and trimethoprim ophthalmic may also be used for purposes not listed in this medicationguide. What should I discuss with my healthcare provider before using polymyxin B and trimethoprim ophthalmic? You should not use this medicine if you are allergic to polymyxin B or trimethoprim. Tell your doctor if you are or . This medicine should not be given to a child younger than 2 months old. How should I use polymyxin B and trimethoprim ophthalmic? This medicine is usually applied once every 3 hours for 7 to 10 days. Follow all directions on yourprescription label and read all medication guides or instruction sheets. Use the medicine exactly as directed. Wash your hands before using the eye drops. To apply the eye drops: Tilt your head back slightly and pull down your lower eyelid to create a small pocket. Hold the dropper above the eye with the tip down. Look up and away from the dropper and squeeze out a drop. Close your eyes for 2 or 3 minutes with your head tipped down, without blinking or squinting. Gently press your finger to the inside corner of the eye for about 1 minute, to keep the liquid from draining into your tear duct. Use only the number of drops your doctor has prescribed. If you use more than one drop, wait about 5 minutes between drops. Wait at least 10 minutes before using any other eye drops your doctor has prescribed. Do not touch the tip of the eye dropper or place it directly on your eye. A contaminated dropper can infect your eye, which could lead to serious vision problems. Do not use the eye drops if the liquid has changed colors or has particles in it. Call your pharmacist for new medicine. Use this medication for the full prescribed length of time. Your symptoms may improve before the infection is completely cleared. Skipping doses may also increase your risk of further infection that is resistant to antibiotics. Store at room temperature away from moisture, heat, and light. Keep the bottle tightly closed when not in use. What happens if I miss a dose? Use the medicine as soon as you can, but skip the missed dose if it is almost time for your next dose. Do not use two doses at one time. What happens if I overdose? Seek emergency medical attention or call the Poison Help line at . What should I avoid while using polymyxin B and trimethoprim ophthalmic? Do not use this medicine while wearing contact lenses. Polymyxin B and trimethoprim ophthalmic may contain a preservative that can discolor soft contact lenses. Wait at least 15 minutes after using this medicine before putting in your contact lenses. Do not use other eye medications unless your doctor tells you to. What are the possible side effects of polymyxin B and trimethoprim ophthalmic? Get emergency medical help if you have signs of an allergic reaction: hives; difficult breathing; swelling of your face, lips, tongue, or throat. Stop using this medicine and call your doctor at once if you have: eye pain, swelling, redness, or severe discomfort; crusting or drainage (may be signs of infection); swelling or redness of your eyelids; or new or worsening symptoms. Common side effects may include: mild burning, stinging, or itching of your eyes. This is not a complete list of side effects and others may occur. Call your doctor for medical advice about side effects. You may report side effects to FDA at 9-421-TMA-5781. What other drugs will affect polymyxin B and trimethoprim ophthalmic? Medicine used in the eyes is not likely to be affected by other drugs you use. But many drugs can interact. Tell your doctor about all your current medicines, including prescription and zuie-hez-nwmqtnb medicines, vitamins, and herbal products. Where can I get more information? Your doctor or pharmacist can provide more information about polymyxin B and trimethoprim ophthalmic. Remember, keep this and all other medicines out of the reach of children, never share your medicines with others, and use this medication only for the indication prescribed. Every effort has been made to ensure that the information provided by [employer]. ('[employer]') is accurate, up-to-date, and complete, but no guarantee is made to that effect. Drug information contained herein may be time sensitive. testbirds information has been compiled for use by healthcare practitioners and consumers in the [place] and therefore testbirds does not warrant that uses outside of the [place] are appropriate, unless specifically indicated otherwise. [facility] drug information does not endorse drugs, diagnose patients or recommend therapy. [facility] drug information isan informational resource designed to assist licensed healthcare practitioners in caring for their p atients and/or to serve consumers viewing this service as a supplement to, and not a substitute for, the expertise, skill, knowledge and judgment of healthcare practitioners. The absence of a warningfor a given drug or drug combination in no way should be construed to indicate that the drug or drug combination is safe, effective or appropriate for any given patient. [employer]birds does not assume any responsibility for any aspect of healthcare administered with the aid of information testbirds provides. The information contained herein is not intended to cover all possible uses, directions, precautions, warnings, drug interactions, allergic reactions, or adverse effects. If you have questions about the drugs you are taking, check with your doctor, nurse or pharmacist. Copyright 2897-3483 [employer]. Version: 5.01. Revision Date: 11/17/2021. Education Materials Corneal Abrasion You have received a scratch or scrape (abrasion) to your cornea. The cornea is the clear part in the front of the eye. This sensitive area is very painful when injured. You may make tears frequently,and your vision may be blurry until the injury heals. You may be sensitive to light. This part of the body heals quickly. You can expect the pain to go away within 24 to 48 hours. If the abrasion is large or deep, your doctor may apply an eye patch, although this is not always done. An antibiotic ointment or eye drops may also be used to prevent infection. Numbing drops may be used to relieve the pain temporarily so that your eyes can be examined. But these drops can t be prescribed for home use because that would prevent healing and lead to more serious problems. Also, if you can t feel your eye, there is a chance of accidentally injuring it furtherwithout knowing it. Home care A cold pack may be applied over the eye (or eye patch) for 20 minutes at a time, to reduce pain. Tomake a cold pack, put ice cubes in a plastic bag that seals at the top. Wrap the bag in a clean, thin towel or cloth. You may use acetaminophen or ibuprofen to control pain, unless another pain medicine was prescribed. Note: If you have chronic liver or kidney disease or have ever had a stomach ulcer or GI bleeding,talk with your doctor before using these medicines. Rest your eyes and don t read until symptoms are gone. If you use contact lenses, don t wear them until all symptoms are gone. If your vision is affected by the corneal abrasion or if an eye patch was applied, don t drive a motor vehicle or operate machinery until all symptoms are gone. You may have trouble judging distancesusing only one eye. If your eyes are sensitive to light, try wearing sunglasses, or stay indoors until symptoms go away. Follow-up care Follow up with your healthcare provider, or as advised. If no patch was put on your eye and the pain continues for more than 48 hours, you should have another exam. Contact your healthcare provider to arrange this. If your eye was patched and you were asked to remove the patch yourself, see your healthcare provider. Contact your healthcare provider if you still have pain after the patch is removed. If you were given a return appointment for patch removal and re-examination, be sure to keep the appointment. Leaving the patch in place longer than advised could be harmful. When to seek medical advice Call your healthcare provider right away if any of these occur. Increasing eye pain or pain that does not improve after 24 hours Discharge from the eye Increasing redness of the eye or swelling of the eyelids Worsening vision Symptoms get worse after the abrasion has healed 7225-4022 [employer]. [address] [place] [address], [place] [address]. All rights reserved. This information is not intended as a substitute for professional medical care. Always follow yourhealthcare professional's instructions. Additional Information VACCINATE! IT SAVES LIVES! Members of the community who have not yet received the COVID-19 vaccine and would like to receive it can visit one of [facility] vaccine clinics. There are many vaccine clinic locations within the [facility]. For locations and available times, please visit [email or web address]. It is important to note that some COVID mobile vaccine clinics are held outdoors and may be canceled in rainy orstormy conditions. To learn more about pediatric vaccinations (ages 5-11), we invite you to visit the [facility] webpage. [email or web address] [email or web address] learn more about the COVID-19 vaccine, we invite you to visit the [facility]j website for a list of frequently asked questions. [email or web address] _[email or web address] [facility] [employer] Patient Portal Access Instructions: Stay connected with your healthcare team and access your personal medical information anytime with the [facility] Patient Portal. If you would like a full copy of your medical records please contact the [facility] Medical Records Department Sunday through Sunday between 8a.m. and 4:30p.m. Please follow the directions below to access the portal: 1.Access the email account you provided upon registration to the hospital.2.Look for an invitation email from [facility].3.Open the email and access the invitation link: Accept Invitation to [facility]4.Fill in the required spence to create your account. Sign into [email or web address] with your username and password that you created in the above steps to stay up to date. You can then view a summary of results, a summary of your visits, and the ability to download your summaries to your computer or send the information securely to a physician. Remember that your healthcare information is confidential, so carefully consider who you will allow to register on the [facility] Patient Portal for access to your information. You can also access the [facility] Patient Portal on the [employer] lucas. Simply click on Health Records under [employer] and then click on the Rj logo. HOW TO SAFELY DISPOSE OF PRESCRIPTION MEDICATIONS Please use one of the following methods to safely dispose of your unused medications. 1.Use a drug disposal kit: the drug disposal pouch allows you to safely discard your old and unuseddrugs. Ask your nurse to give you one when you are discharged.2.Visit a local take-back location: Many local pharmacies and police departments have programs that collect old and unwanted prescriptiondrugs. Call your local pharmacy or go to http://bewarket.SinDelantal.Mx/1Y6Oz9e to find one close to you.3.Make use of household items: Use cat litter or old coffee grounds to dispose medications if other options arenot available. Mix your drugs with these household products, seal them in an airtight container andthrow it into the garbage. Call [facility]: [phone] to be sure your drugs can be disposed of in this way. Some medicines may require a different approach.4.Never flush your medications down the toilet. IF YOU HAVE BEEN PRESCRIBED AN OPIOIDS FOR PAIN If you have been prescribed an opioid (such as hydrocodone, oxycodone or morphine), it is critical to understand the possible side effects and risks of opioid pain medications. Even when taken as directed, opioids can have several side effects including: Tolerance, meaning you might need to take more of a medication for the same pain relief. Nausea, vomiting and/or constipation. Sleepiness, dizziness, dry mouth, confusion, depression or itching. Physical dependence, meaning you have withdrawal symptoms when a medication is stopped ? this can develop within a few days. KNOW YOUR RESPONSIBILITIES It is important to know exactly how much and how often to take the opioid pain medications you are prescribed. Never take opioids in higher amounts or more often than prescribed. Do not combine opioids with alcohol or other drugs that cause drowsiness, such as benzodiazepines, also known as benzos,including diazepam and alprazolam, muscle relaxants or sleep aids. Never sell or share prescriptionopioids. This is illegal. Store opioids in a secure place and out of reach of others (including children, family, friends and visitors). The last page(s) of this document has been signed and retained as a CHART COPY Signatures Patient Education Materials Corneal Abrasion Medication Leaflets ketorolac ophthalmic, polymyxin B and trimethoprim ophthalmic My discharge plan and instructions have been reviewed and explained to me and IMANUEL SARAH M understand my current condition and have read and understand these discharge instructions. I have received a written copy of the plan/instructions. If I have questions, I am aware that I should contact my doctor. Patient/Doctor Of Nurse Anesthesia Signature: Date/Time: Relationship to Patient: Witness Name/Signature: Date/Time: [facility] Ieuucowr03-11-1886 Hospital Discharge instructions Patient Education 04/16/2022 17:03:58 Vaginal Foreign Body, Removed (Adult) Vaginal Foreign Body, Removed (Adult) Any object placed inside the vagina is called a vaginal foreign body. This includes tampons, control devices, and sex toys. In some cases, objects not designed for the vagina may be placed inside. If an object is left inside the vagina too long or becomes stuck, it can cause symptoms. It can also lead to infection and damage nearby tissues. Symptoms can include unusual or foul-smelling discharge. Bleeding, redness, swelling, or rash may also occur. Some women may feel pain or pressure in or around the vagina. Treatment involves removing the object. Once the object is removed, symptoms should go away. If theobject caused an infection, antibiotics may be given. Home care If you re prescribed any medicines, be sure to take them as directed. Don t douche unless advised to by your provider. Wait until all symptoms are gone before having sex. Check with your provider before using tampons. If it s OK, remember to remove each tampon you use after 6 to 8 hours or sooner. If you have new symptoms or any questions or concerns, contact your healthcare provider. Follow-up care Follow up with your healthcare provider, or as advised. When to seek medical advice Call your healthcare provider right away if any of these occur: Your symptoms don t improve or worsen. You develop pain in the belly. You have burning or pain during urination. You have a fever of 100.4 F (38 C) or higher, or as directed by your provider. You feel weak, dizzy, or faint. 5085-0827 [employer]. [address] [place] [address], [place] [address]. All rights reserved. This information is not intended as a substitute for professional medical care. Always follow yourhealthcare professional's instructions. Follow Up Care 04/16/2022 16:46:00 With:LASHAWN AVILA DO Address: [place] [id number]- When:2-4 days [facility] Randy 07-03-2022 Emergency department Discharge summary Discharge Instructions Thank you for allowing [facility] to assist you with your healthcare needs. The following is importantdischarge information regarding your hospital visit. Diagnosis from Today's Visit Tampon in vagina Foreign body in vagina What to Do Next Instructions from Your Care Team No qualifying data available. Post Acute Orders No qualifying data available. You Need to Schedule the Following Appointments Follow Up with LASHAWN AVILA DO When Within 2-4 days Where: [place] [id number]- Allergies amoxicillin (Rash) Medications Please ask your primary doctor or pharmacist before taking any other medication not listed, including over the counter drugs, herbal medications, vitamins and or supplements as they may interact withyour home medications. What How Much When Why Instructions Last Dose Unchanged ALPRAZolam (ALPRAZolam 0.5 mg oral tablet) Unchanged citalopram (CeleXA 20 mg oral tablet) 1 tab(s) by mouth Once a day Unchanged doxycycline (doxycycline hyclate 100 mg oral capsule) 1 cap by mouth Two (2) times a day Foreign body Duration: 7 Days Unchanged multivitamin, ( MR 90) 1 tab(s) by mouth Every day Please take this list to your next doctor s visit. Bring all medications you take, including over the counter medications, herbals and other supplements with you to your doctor s visit. Patients and families are reminded to discard old lists and to update any records with all medication providers or retail pharmacies. Education Materials Vaginal Foreign Body, Removed (Adult) Any object placed inside the vagina is called a vaginal foreign body. This includes tampons, control devices, and sex toys. In some cases, objects not designed for the vagina may be placed inside. If an object is left inside the vagina too long or becomes stuck, it can cause symptoms. It can also lead to infection and damage nearby tissues. Symptoms can include unusual or foul-smelling discharge. Bleeding, redness, swelling, or rash may also occur. Some women may feel pain or pressure in or around the vagina. Treatment involves removing the object. Once the object is removed, symptoms should go away. If theobject caused an infection, antibiotics may be given. Home care If you re prescribed any medicines, be sure to take them as directed. Don t douche unless advised to by your provider. Wait until all symptoms are gone before having sex. Check with your provider before using tampons. If it s OK, remember to remove each tampon you use after 6 to 8 hours or sooner. If you have new symptoms or any questions or concerns, contact your healthcare provider. Follow-up care Follow up with your healthcare provider, or as advised. When to seek medical advice Call your healthcare provider right away if any of these occur: Your symptoms don t improve or worsen. You develop pain in the belly. You have burning or pain during urination. You have a fever of 100.4 F (38 C) or higher, or as directed by your provider. You feel weak, dizzy, or faint. 9451-1818 [employer]. [address] [place] [address]. All rights reserved. This information is not intended as a substitute for professional medical care. Always follow yourhealthcare professional's instructions. Additional Information VACCINATE! IT SAVES LIVES! Members of the community who have not yet received the COVID-19 vaccine and would like to receive it can visit one of [facility] vaccine clinics. There are many vaccine clinic locations within the [facility]. For locations and available times, please visit [email or web address]. It is important to note that some COVID mobile vaccine clinics are held outdoors and may be canceled in rainy orstormy conditions. To learn more about pediatric vaccinations (ages 5-11), we invite you to visit the [facility] webpage. [email or web address] [email or web address] learn more about the COVID-19 vaccine, we invite you to visit the [employer] website for a list of frequently asked questions. [email or web address] _[email or web address] [facility] Patient Portal Access Instructions: Stay connected with your healthcare team and access your personal medical information anytime with the [facility] Patient Portal. If you would like a full copy of your medical records please contact the [facility] Medical Records Department Sunday through Sunday between 8a.m. and 4:30p.m. Please follow the directions below to access the portal: 1.Access the email account you provided upon registration to the [facility].2.Look for an invitation email from [facility].3.Open the email and access the invitation link: Accept Invitation to [facility]4.Fill in the required spence to create your account. Sign into [email or web address] with your username and password that you created in the above steps to stay up to date. You can then view a summary of results, a summary of your visits, and the ability to download your summaries to your computer or send the information securely to a physician. Remember that your healthcare information is confidential, so carefully consider who you will allow to register on the [facility] [employer] Patient Portal for access to your information. You can also access the [facility] Patient Portal on the [employer] lucas. Simply click on Health Records under [employer] and then click on the Rj logo. HOW TO SAFELY DISPOSE OF PRESCRIPTION MEDICATIONS Please use one of the following methods to safely dispose of your unused medications. 1.Use a drug disposal kit: the drug disposal pouch allows you to safely discard your old and unuseddrugs. Ask your nurse to give you one when you are discharged.2.Visit a local take-back location: Many local pharmacies and police departments have programs that collect old and unwanted prescriptiondrugs. Call your local pharmacy or go to http://bit.SinDelantal.Mx/8X5Su6o to find one close to you.3.Make use of household items: Use cat litter or old coffee grounds to dispose medications if other options arenot available. Mix your drugs with these household products, seal them in an airtight container andthrow it into the garbage. Call [facility]: [phone] to be sure your drugs can be disposed of in this way. Some medicines may require a different approach.4.Never flush your medications down the toilet. IF YOU HAVE BEEN PRESCRIBED AN OPIOIDS FOR PAIN If you have been prescribed an opioid (such as hydrocodone, oxycodone or morphine), it is critical to understand the possible side effects and risks of opioid pain medications. Even when taken as directed, opioids can have several side effects including: Tolerance, meaning you might need to take more of a medication for the same pain relief. Nausea, vomiting and/or constipation. Sleepiness, dizziness, dry mouth, confusion, depression or itching. Physical dependence, meaning you have withdrawal symptoms when a medication is stopped ? this can develop within a few days. KNOW YOUR RESPONSIBILITIES It is important to know exactly how much and how often to take the opioid pain medications you are prescribed. Never take opioids in higher amounts or more often than prescribed. Do not combine opioids with alcohol or other drugs that cause drowsiness, such as benzodiazepines, also known as benzos,including diazepam and alprazolam, muscle relaxants or sleep aids. Never sell or share prescriptionopioids. This is illegal. Store opioids in a secure place and out of reach of others (including children, family, friends and visitors). The last page(s) of this document has been signed and retained as a CHART COPY Signatures Patient Education Materials Vaginal Foreign Body, Removed (Adult) Medication Leaflets My discharge plan and instructions have been reviewed and explained to me and IMANUEL PENNIE M understand my current condition and have read and understand these discharge instructions. I have received a written copy of the plan/instructions. If I have questions, I am aware that I should contact my doctor. Patient/Doctor Of Nurse Anesthesia Signature: Date/Time: Relationship to Patient: Witness Name/Signature: Date/Time: [facility]04-14-2022 Hospital Discharge instructions Patient Education 01/26/2022 10:44:28 For Girls: About Sanitary Pads and Tampons For Girls: About Sanitary Pads and Tampons During your period, pads and tampons absorb the flow and protect your clothes from stains. They come in many styles. Some absorb more than others. To learn how to use them, read the package instructions and check with an adult. Pads or tampons? Trying tampons? Health alert How do you choose between pads and tampons? Give each of them a try, then decide which you like best. It s up to you. Don t forget: You can buy both. Many girls do. Then you always have a choice. Youcan wear a pad or a tampon depending on: How you re feeling What you ll be doing (like dancing, swimming, or running) What you ll be wearing (such as a leotard, a swimsuit, or sweat pants) If you think you want to try tampons, start by using slender, smaller tampons. You may want to choose a style that has a curved applicator at the end. These may be easier to insert. You may want to be at home when you put in your first tampon. Pick a time when you aren t in a hurry. Remember to relax. If you re not leaking, it s tempting to leave a tampon in all day. But this is not a good idea. It can cause health problems, some of them very serious. Be sure to remove the last tampon you use witheach period! About pads Most pads have a sticky strip that clings to panties. Pads are made of soft material and lined withplastic to help prevent leaks. Pads may be shaped like rectangles or ovals. They can be thin or thick. Some pads come wrapped individually. These are easy to tuck in a purse, backpack, or locker. Youcan put an unwrapped pad in a baggie to keep it clean. About tampons Tampons are worn inside your vagina. Some come in cardboard or plastic tubes to help you insert them. Don t worry: Tampons won t get lost inside your body. Once a tampon is inside you, the muscles ofyour vagina hold it safely in place. Each tampon has a string attached to help you pull it out later. Change every few hours Change pads and tampons every 4 to 8 hours, more often if needed. This helps you avoid leaks and odor. Always wrap a used pad (toilet paper works well) and throw it out. Never flush pads down the toilet! Some tampons and their tubes are flushable. Check the package directions. What about at night? Your flow may be heavier or clinical nursing instructor at night. You can wear a pad, tampon, or both. Don't forget to change your pad or tampon immediately when you wake up. Use whatever is most comfortable for you. 0402-5040 [employer]. [address] [place] [address], [place] [address]. All rights reserved. This information is not intended as a substitute for professional medical care. Always follow yourhealthcare professional's instructions. 01/26/2022 10:44:15 Doxycycline tablets or capsules Doxycycline tablets or capsules What is this medicine? DOXYCYCLINE (dox sarai frazier) is a tetracycline antibiotic. It kills certain bacteria or stops their growth. It is used to treat many kinds of infections, like dental, skin, respiratory, and urinary tract infections. It also treats acne, Lyme disease, malaria, and certain sexually transmitted infections. How should I use this medicine? Take this medicine by mouth with a full glass of water. Follow the directions on the prescription label. It is best to take this medicine without food, but if it upsets your stomach take it with food. Take your medicine at regular intervals. Do not take your medicine more often than directed. Take all of your medicine as directed even if you think you are better. Do not skip doses or stop your medicine early. Talk to your nonprofit manager regarding the use of this medicine in children. While this drug may be prescribed for selected conditions, precautions do apply. What side effects may I notice from receiving this medicine? Side effects that you should report to your doctor or health residential child care counselor as soon as possible: allergic reactions like skin rash, itching or hives, swelling of the face, lips, or tongue difficulty breathing fever itching in the rectal or genital area pain on swallowing redness, blistering, peeling or loosening of the skin, including inside the mouth severe stomach pain or cramps unusual bleeding or bruising unusually weak or tired yellowing of the eyes or skin Side effects that usually do not require medical attention (report to your doctor or health residential child care counselor if they continue or are bothersome): diarrhea loss of appetite nausea, vomiting What may interact with this medicine? antacids barbiturates control pills bismuth subsalicylate carbamazepine methoxyflurane other antibiotics phenytoin vitamins that contain iron warfarin What if I miss a dose? If you miss a dose, take it as soon as you can. If it is almost time for your next dose, take only that dose. Do not take double or extra doses. Where should I keep my medicine? Keep out of the reach of children. Store at room temperature, below 30 degrees C (86 degrees F). Protect from light. Keep container tightly closed. Throw away any unused medicine after the expiration date. Taking this medicine after the expiration date can make you seriously ill. What should I tell my health care provider before I take this medicine? They need to know if you have any of these conditions: liver disease long exposure to sunlight like working outdoors stomach problems like colitis an unusual or allergic reaction to doxycycline, tetracycline antibiotics, other medicines, foods, dyes, or preservatives or trying to get breast-feeding What should I watch for while using this medicine? Tell your doctor or health residential child care counselor if your symptoms do not improve. Do not treat diarrhea with over the counter products. Contact your doctor if you have diarrhea thatlasts more than 2 days or if it is severe and watery. Do not take this medicine just before going to bed. It may not dissolve properly when you lay down and can cause pain in your throat. Drink plenty of fluids while taking this medicine to also help reduce irritation in your throat. This medicine can make you more sensitive to the sun. Keep out of the sun. If you cannot avoid being in the sun, wear protective clothing and use sunscreen. Do not use sun lamps or tanning beds/booths. control pills may not work properly while you are taking this medicine. Talk to your doctor about using an extra method of control. If you are being treated for a sexually transmitted infection, avoid sexual contact until you have finished your treatment. Your sexual partner may also need treatment. Avoid antacids, aluminum, calcium, magnesium, and iron products for 4 hours before and 2 hours after taking a dose of this medicine. If you are using this medicine to prevent malaria, you should still protect yourself from contact with mosquitos. Stay in screened-in areas, use mosquito nets, keep your body covered, and use an insect repellent. NOTE:This sheet is a summary. It may not cover all possible information. If you have questions about this medicine, talk to your doctor, pharmacist, or health care provider. Copyright 2019 [employer] 01/26/2022 09:33:10 With:LASHAWN AVILA DO Address: [address] [place], [place] [id number]- When:2-4 days [facility] 02-15-2016 History of Past illness Narrative* Problem Noted Date Resolved Date Primary herpes simplex 11/29/2015 6 Overview: Primary outbreak at 22 weeks gestation confirmed by culture. 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 Also had sequential screen at [facility]. See scanned documents. Jany Temple, DO Trichomonal vaginitis during in second trimester 10/17/2015 06/14/2016 Overview: 02/08/16 - last trich negative - KJ 01/12/16 - trich still positive, will treat again, patient states no longer with partner - KJ 10/17/15: needs REX and cultures repeated at 36 wks. Encounter for supervision of normal first in second trimester 09/27/2015 06/14/2016 History of shoulder dystocia in prior 09/27/2015 06/14/2016 Overview: 01/12/16 - patient desires primary , will schedule - KJ Early GCT normal. Plan for growth scans in 3rd trimester and if normal plan for vaginal delivery 39/40 weeks. 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 She had care her first with Dr. Casper and went into labor and was transferred to [place] and delivered there at 30 weeks. The baby had Trisomy 18 and lived for 3 days. She did have genetic counseling at [facility]. She had a D&C for a miscarriage 11/06/2010 and January 2011. Quantitative hCG and serum progesterone ordered today by Dr. Childress, with a repeat quantitative hCG in 48 hours. Patient denies any bleeding, pain, or cramping this . She is to call/come in if she develops any bleeding, pain, or PRN problems. TKRN Quit smoking 11/18/2013 06/14/2016 Overview: 11/18/2013Pt recently quit smoking 11/06/2013. Discussed risks of smoking during and advised pt to continue not smoking. TKRN Complications of obstetrical surgery and procedu res 11/18/2013 05/04/2014 Overview: 11/18/2013Patient has a history of uterine perforation at the time of a D&C in January of 2011. TKRN History of recurrent UTI (urinary tract infectio n) 11/18/2013 06/14/2016 Overview: 11/18/2013Pt has a history of recurrent UTI the past 5 years. Discussed importance of reporting the onset of any symptoms of a UTI should it occur during . TKRN Rh negative status during 11/18/2013 07/17/2014 Overview: 11/18/2013 Pt is RH negative. She is a Rhogam candidate. TKRN History of abnormal Pap smear 11/18/2013 Overview: 12/03/13 - LSIL can't exclude HSIL, colpo ordered - KJ 11/26/13 - repeat pap today - 11/18/2013 Patient had an abnormal Pap done by Dr. Nixon in 2012. Patient states it was a positive HPV. Patient signed a release of records form to obtain her Pap results from Dr. Nixon. TKRN Patient requested diagnostic testing 11/18/2013 05/04/2014 Overview: 11/18/2013 Patient desires early screening in with sequential testing. TKRN 12/30/2013She opted for non-invasive testing (NIPT). TKRN Smoker 10/31/2012 11/26/2013 documented as of this encounter (statuses as of 06/13/2022) [facility] [place]02-15-2016 History of Past illness Narrative* Problem Noted Date Resolved Date Primary herpes simplex 11/29/2015 6 Overview: Primary outbreak at 22 weeks gestation confirmed by culture. Jany Temple, 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 , currently in second trimester 11/01/2015 06/14/2016 Overview: Normal maternity 21 at [facility]. Also had sequential screen at [facility]. See scanned documents. Jany Temple, DO Trichomonal vaginitis during in second trimester 10/17/2015 06/14/2016 Overview: 02/08/16 - last trich negative - KJ 01/12/16 - trich still positive, will treat again, patient states no longer with partner - KJ 10/17/15: needs REX and cultures repeated at 36 wks. Encounter for supervision of normal first in second trimester 09/27/2015 06/14/2016 History of shoulder dystocia in prior 09/27/2015 06/14/2016 Overview: 01/12/16 - patient desires primary , will schedule - KJ Early GCT normal. Plan for growth scans in 3rd trimester and if normal plan for vaginal delivery 39/40 weeks. 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 She had care her first with Dr. Casper and went into labor and was transferred to [place] and delivered there at 30 weeks. The baby had Trisomy 18 and lived for 3 days. She did have genetic counseling at [facility]. She had a D&C for a miscarriage 11/06/2010 and January 2011. Quantitative hCG and serum progesterone ordered today by Dr. Childress, with a repeat quantitative hCG in 48 hours. Patient denies any bleeding, pain, or cramping this . She is to call/come in if she develops any bleeding, pain, or PRN problems. TKRN Quit smoking 11/18/2013 06/14/2016 Overview: 11/18/2013Pt recently quit smoking 11/06/2013. Discussed risks of smoking during and advised pt to continue not smoking. TKRN Complications of obstetrical surgery and procedu res 11/18/2013 05/04/2014 Overview: 11/18/2013Patient has a history of uterine perforation at the time of a D&C in January of 2011. TKRN History of recurrent UTI (urinary tract infectio n) 11/18/2013 06/14/2016 Overview: 11/18/2013Pt has a history of recurrent UTI the past 5 years. Discussed importance of reporting the onset of any symptoms of a UTI should it occur during . TKRN Rh negative status during 11/18/2013 07/17/2014 Overview: 11/18/2013 Pt is RH negative. She is a Rhogam candidate. TKRN History of abnormal Pap smear 11/18/2013 Overview: 12/03/13 - LSIL can't exclude HSIL, colpo ordered - KJ 11/26/13 - repeat pap today - KJ 11/18/2013 Patient had an abnormal Pap done by Dr. Nixon in 2012. Patient states it was a positive HPV. Patient signed a release of records form to obtain her Pap results from Dr. Nixon. TKRN Patient requested diagnostic testing 11/18/2013 05/04/2014 Overview: 11/18/2013 Patient desires early screening in with sequential testing. TKRN 12/30/2013She opted for non-invasive testing (NIPT). TKRN Smoker 10/31/2012 11/26/2013 documented as of this encounter (statuses as of 06/14/2022) [facility] [place]02-15-2016 History of Past illness Narrative* Problem Noted Date Resolved Date Primary herpes simplex 11/29/2015 6 Overview: Primary outbreak at 22 weeks gestation confirmed by culture. Jany Temple, DO 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 , currently in second trimester 11/01/2015 06/14/2016 Overview: Normal maternity 21 at [facility]. Also had sequential screen at [facility]. See scanned documents. Jany Temple, DO Trichomonal vaginitis during in second trimester 10/17/2015 06/14/2016 Overview: 02/08/16 - last trich negative - KJ 01/12/16 - trich still positive, will treat again, patient states no longer with partner - KJ 10/17/15: needs REX and cultures repeated at 36 wks. Encounter for supervision of normal first in second trimester 09/27/2015 06/14/2016 History of shoulder dystocia in prior 09/27/2015 06/14/2016 Overview: 01/12/16 - patient desires primary , will schedule - KJ Early GCT normal. Plan for growth scans in 3rd trimester and if normal plan for vaginal delivery 39/40 weeks. 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 She had care her first with Dr. Casper and went into labor and was transferred to [place] and delivered there at 30 weeks. The baby had Trisomy 18 and lived for 3 days. She did have genetic counseling at [facility]. She had a D&C for a miscarriage 11/06/2010 and January 2011. Quantitative hCG and serum progesterone ordered today by Dr. Childress, with a repeat quantitative hCG in 48 hours. Patient denies any bleeding, pain, or cramping this . She is to call/come in if she develops any bleeding, pain, or PRN problems. TKRN Quit smoking 11/18/2013 06/14/2016 Overview: 11/18/2013Pt recently quit smoking 11/06/2013. Discussed risks of smoking during and advised pt to continue not smoking. TKRN Complications of obstetrical surgery and procedu res 11/18/2013 05/04/2014 Overview: 11/18/2013Patient has a history of uterine perforation at the time of a D&C in January of 2011. TKRN History of recurrent UTI (urinary tract infectio n) 11/18/2013 06/14/2016 Overview: 11/18/2013Pt has a history of recurrent UTI the past 5 years. Discussed importance of reporting the onset of any symptoms of a UTI should it occur during . TKRN Rh negative status during 11/18/2013 07/17/2014 Overview: 11/18/2013 Pt is RH negative. She is a Rhogam candidate. TKRN History of abnormal Pap smear 11/18/2013 Overview: 12/03/13 - LSIL can't exclude HSIL, colpo ordered - KJ 11/26/13 - repeat pap today - KJ 11/18/2013 Patient had an abnormal Pap done by Dr. Nixon in 2012. Patient states it was a positive HPV. Patient signed a release of records form to obtain her Pap results from Dr. Nixon. TKRN Patient requested diagnostic testing 11/18/2013 05/04/2014 Overview: 11/18/2013 Patient desires early screening in with sequential testing. TKRN 12/30/2013She opted for non-invasive testing (NIPT). TKRN Smoker 10/31/2012 11/26/2013 documented as of this encounter (statuses as of 06/15/2022) [facility] [place]02-15-2016 History of Past illness Narrative* Problem Noted Date Resolved Date Primary herpes simplex 11/29/2015 6 Overview: Primary outbreak at 22 weeks gestation confirmed by culture. 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 Also had sequential screen at [facility]. See scanned documents. Jany Temple DO Trichomonal vaginitis during in second trimester 10/17/2015 06/14/2016 Overview: 02/08/16 - last trich negative - KJ 01/12/16 - trich still positive, will treat again, patient states no longer with partner - KJ 10/17/15: needs REX and cultures repeated at 36 wks. Encounter for supervision of normal first in second trimester 09/27/2015 06/14/2016 History of shoulder dystocia in prior 09/27/2015 06/14/2016 Overview: 01/12/16 - patient desires primary , will schedule - KJ Early GCT normal. Plan for growth scans in 3rd trimester and if normal plan for vaginal delivery 39/40 weeks. 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 She had care her first with Dr. Casper and went into labor and was transferred to [place] and delivered there at 30 weeks. The baby had Trisomy 18 and lived for 3 days. She did have genetic counseling at [facility]. She had a D&C for a miscarriage 11/06/2010 and January 2011. Quantitative hCG and serum progesterone ordered today by Dr. Childress, with a repeat quantitative hCG in 48 hours. Patient denies any bleeding, pain, or cramping this . She is to call/come in if she develops any bleeding, pain, or PRN problems. TKRN Quit smoking 11/18/2013 06/14/2016 Overview: 11/18/2013Pt recently quit smoking 11/06/2013. Discussed risks of smoking during and advised pt to continue not smoking. TKRN Complications of obstetrical surgery and procedu res 11/18/2013 05/04/2014 Overview: 11/18/2013Patient has a history of uterine perforation at the time of a D&C in January of 2011. TKRN History of recurrent UTI (urinary tract infectio n) 11/18/2013 06/14/2016 Overview: 11/18/2013Pt has a history of recurrent UTI the past 5 years. Discussed importance of reporting the onset of any symptoms of a UTI should it occur during . TKRN Rh negative status during 11/18/2013 07/17/2014 Overview: 11/18/2013 Pt is RH negative. She is a Rhogam candidate. TKRN History of abnormal Pap smear 11/18/2013 Overview: 12/03/13 - LSIL can't exclude HSIL, colpo ordered - 11/26/13 - repeat pap today - 11/18/2013 Patient had an abnormal Pap done by Dr. Nixon in 2012. Patient states it was a positive HPV. Patient signed a release of records form to obtain her Pap results from Dr. Nixon. TKRN Patient requested diagnostic testing 11/18/2013 05/04/2014 Overview: 11/18/2013 Patient desires early screening in with sequential testing. TKRN 12/30/2013She opted for non-invasive testing (NIPT). TKRN Smoker 10/31/2012 11/26/2013 documented as of this encounter (statuses as of 08/10/2022) [facility] [place]02-15-2016 History of Past illness Narrative* Problem Noted Date Resolved Date Primary herpes simplex 11/29/2015 6 Overview: Primary outbreak at 22 weeks gestation confirmed by culture. 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 Also had sequential screen at [facility]. See scanned documents. Jany Temple DO Trichomonal vaginitis during in second trimester 10/17/2015 06/14/2016 Overview: 02/08/16 - last trich negative - KJ 01/12/16 - trich still positive, will treat again, patient states no longer with partner - KJ 10/17/15: needs REX and cultures repeated at 36 wks. Encounter for supervision of normal first in second trimester 09/27/2015 06/14/2016 History of shoulder dystocia in prior 09/27/2015 06/14/2016 Overview: 01/12/16 - patient desires primary , will schedule - KJ Early GCT normal. Plan for growth scans in 3rd trimester and if normal plan for vaginal delivery 39/40 weeks. 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 She had care her first with Dr. Casper and went into labor and was transferred to [place] and delivered there at 30 weeks. The baby had Trisomy 18 and lived for 3 days. She did have genetic counseling at [facility]. She had a D&C for a miscarriage 11/06/2010 and January 2011. Quantitative hCG and serum progesterone ordered today by Dr. Childress, with a repeat quantitative hCG in 48 hours. Patient denies any bleeding, pain, or cramping this . She is to call/come in if she develops any bleeding, pain, or PRN problems. TKRN Quit smoking 11/18/2013 06/14/2016 Overview: 11/18/2013Pt recently quit smoking 11/06/2013. Discussed risks of smoking during and advised pt to continue not smoking. TKRN Complications of obstetrical surgery and procedu res 11/18/2013 05/04/2014 Overview: 11/18/2013Patient has a history of uterine perforation at the time of a D&C in January of 2011. TKRN History of recurrent UTI (urinary tract infectio n) 11/18/2013 06/14/2016 Overview: 11/18/2013Pt has a history of recurrent UTI the past 5 years. Discussed importance of reporting the onset of any symptoms of a UTI should it occur during . TKRN Rh negative status during 11/18/2013 07/17/2014 Overview: 11/18/2013 Pt is RH negative. She is a Rhogam candidate. TKRN History of abnormal Pap smear 11/18/2013 Overview: 12/03/13 - LSIL can't exclude HSIL, colpo ordered - 11/26/13 - repeat pap today - 11/18/2013 Patient had an abnormal Pap done by Dr. Nixon in 2012. Patient states it was a positive HPV. Patient signed a release of records form to obtain her Pap results from Dr. Nixon. TKRN Patient requested diagnostic testing 11/18/2013 05/04/2014 Overview: 11/18/2013 Patient desires early screening in with sequential testing. TKRN 12/30/2013She opted for non-invasive testing (NIPT). TKRN Smoker 10/31/2012 11/26/2013 documented as of this encounter (statuses as of 08/19/2022) [facility] [place]02-[facility]2016 History of Past illness Narrative* Problem Noted Date Resolved Date Primary herpes simplex 11/29/2015 6 Overview: Primary outbreak at 22 weeks gestation confirmed by culture. 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 Also had sequential screen at [facility]. See scanned documents. Jany Temple DO Trichomonal vaginitis during in second trimester 10/17/2015 06/14/2016 Overview: 02/08/16 - last trich negative - KJ 01/12/16 - trich still positive, will treat again, patient states no longer with partner - KJ 10/17/15: needs REX and cultures repeated at 36 wks. Encounter for supervision of normal first in second trimester 09/27/2015 06/14/2016 History of shoulder dystocia in prior 09/27/2015 06/14/2016 Overview: 01/12/16 - patient desires primary , will schedule - KJ Early GCT normal. Plan for growth scans in 3rd trimester and if normal plan for vaginal delivery 39/40 weeks. 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 She had care her first with Dr. Casper and went into labor and was transferred to [place] and delivered there at 30 weeks. The baby had Trisomy 18 and lived for 3 days. She did have genetic counseling at [facility]. She had a D&C for a miscarriage 11/06/2010 and January 2011. Quantitative hCG and serum progesterone ordered today by Dr. Childress, with a repeat quantitative hCG in 48 hours. Patient denies any bleeding, pain, or cramping this . She is to call/come in if she develops any bleeding, pain, or PRN problems. TKRN Quit smoking 11/18/2013 06/14/2016 Overview: 11/18/2013Pt recently quit smoking 11/06/2013. Discussed risks of smoking during and advised pt to continue not smoking. TKRN Complications of obstetrical surgery and procedu res 11/18/2013 05/04/2014 Overview: 11/18/2013Patient has a history of uterine perforation at the time of a D&C in January of 2011. TKRN History of recurrent UTI (urinary tract infectio n) 11/18/2013 06/14/2016 Overview: 11/18/2013Pt has a history of recurrent UTI the past 5 years. Discussed importance of reporting the onset of any symptoms of a UTI should it occur during . TKRN Rh negative status during 11/18/2013 07/17/2014 Overview: 11/18/2013 Pt is RH negative. She is a Rhogam candidate. TKRN History of abnormal Pap smear 11/18/2013 Overview: 12/03/13 - LSIL can't exclude HSIL, colpo ordered - KJ 11/26/13 - repeat pap today - 11/18/2013 Patient had an abnormal Pap done by Dr. Nixon in 2012. Patient states it was a positive HPV. Patient signed a release of records form to obtain her Pap results from Dr. Nixon. TKRN Patient requested diagnostic testing 11/18/2013 05/04/2014 Overview: 11/18/2013 Patient desires early screening in with sequential testing. TKRN 12/30/2013She opted for non-invasive testing (NIPT). TKRN Smoker 10/31/2012 11/26/2013 documented as of this encounter (statuses as of 10/24/2022) [facility] [place]02-[facility]2016 History of Past illness Narrative* Problem Noted Date Resolved Date Primary herpes simplex 11/29/2015 6 Overview: Primary outbreak at 22 weeks gestation confirmed by culture. 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 Also had sequential screen at [facility]. See scanned documents. Jany Temple DO Trichomonal vaginitis during in second trimester 10/17/2015 06/14/2016 Overview: 02/08/16 - last trich negative - KJ 01/12/16 - trich still positive, will treat again, patient states no longer with partner - KJ 10/17/15: needs REX and cultures repeated at 36 wks. Encounter for supervision of normal first in second trimester 09/27/2015 06/14/2016 History of shoulder dystocia in prior 09/27/2015 06/14/2016 Overview: 01/12/16 - patient desires primary , will schedule - KJ Early GCT normal. Plan for growth scans in 3rd trimester and if normal plan for vaginal delivery 39/40 weeks. 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 She had care her first with Dr. Casper and went into labor and was transferred to [place] and delivered there at 30 weeks. The baby had Trisomy 18 and lived for 3 days. She did have genetic counseling at [facility]. She had a D&C for a miscarriage 11/06/2010 and January 2011. Quantitative hCG and serum progesterone ordered today by Dr. Childress, with a repeat quantitative hCG in 48 hours. Patient denies any bleeding, pain, or cramping this . She is to call/come in if she develops any bleeding, pain, or PRN problems. TKRN Quit smoking 11/18/2013 06/14/2016 Overview: 11/18/2013Pt recently quit smoking 11/06/2013. Discussed risks of smoking during and advised pt to continue not smoking. TKRN Complications of obstetrical surgery and procedu res 11/18/2013 05/04/2014 Overview: 11/18/2013Patient has a history of uterine perforation at the time of a D&C in January of 2011. TKRN History of recurrent UTI (urinary tract infectio n) 11/18/2013 06/14/2016 Overview: 11/18/2013Pt has a history of recurrent UTI the past 5 years. Discussed importance of reporting the onset of any symptoms of a UTI should it occur during . TKRN Rh negative status during 11/18/2013 07/17/2014 Overview: 11/18/2013 Pt is RH negative. She is a Rhogam candidate. TKRN History of abnormal Pap smear 11/18/2013 Overview: 12/03/13 - LSIL can't exclude HSIL, colpo ordered - KJ 11/26/13 - repeat pap today - KJ 11/18/2013 Patient had an abnormal Pap done by Dr. Nixon in 2012. Patient states it was a positive HPV. Patient signed a release of records form to obtain her Pap results from Dr. Nixon. TKRN Patient requested diagnostic testing 11/18/2013 05/04/2014 Overview: 11/18/2013 Patient desires early screening in with sequential testing. TKRN 12/30/2013She opted for non-invasive testing (NIPT). TKRN Smoker 10/31/2012 11/26/2013 documented as of this encounter (statuses as of 01/23/2023) [facility] [place]15[facility] History of Past illness Narrative* Problem Noted Date Resolved Date Primary herpes simplex 11/29/2015 6 Overview: Primary outbreak at 22 weeks gestation confirmed by culture. 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 Also [facility] See scanned documents. Jany Temple DO Trichomonal vaginitis during in second trimester 10/17/2015 06/14/2016 Overview: 02/08/16 - last trich negative - KJ 01/12/16 - trich still positive, will treat again, patient states no longer with partner - KJ 10/17/15: needs REX and cultures repeated at 36 wks. Encounter for supervision of normal first in second trimester 09/27/2015 06/14/2016 History of shoulder dystocia in prior 09/27/2015 06/14/2016 Overview: 01/12/16 - patient desires primary , will schedule - KJ Early GCT normal. Plan for growth scans in 3rd trimester and if normal plan for vaginal delivery 39/40 weeks. 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 She had care her first with Dr. Casper and went into labor and was transferred to [place] and delivered there at 30 weeks. The baby had Trisomy 18 and lived for 3 days. She did have genetic counseling at [facility]. She had a D&C for a miscarriage 11/06/2010 and January 2011. Quantitative hCG and serum progesterone ordered today by Dr. Childress, with a repeat quantitative hCG in 48 hours. Patient denies any bleeding, pain, or cramping this . She is to call/come in if she develops any bleeding, pain, or PRN problems. TKRN Quit smoking 11/18/2013 06/14/2016 Overview: 11/18/2013Pt recently quit smoking 11/06/2013. Discussed risks of smoking during and advised pt to continue not smoking. TKRN Complications of obstetrical surgery and procedu res 11/18/2013 05/04/2014 Overview: 11/18/2013Patient has a history of uterine perforation at the time of a D&C in January of 2011. TKRN History of recurrent UTI (urinary tract infectio n) 11/18/2013 06/14/2016 Overview: 11/18/2013Pt has a history of recurrent UTI the past 5 years. Discussed importance of reporting the onset of any symptoms of a UTI should it occur during . TKRN Rh negative status during 11/18/2013 07/17/2014 Overview: 11/18/2013 Pt is RH negative. She is a Rhogam candidate. TKRN History of abnormal Pap smear 11/18/2013 Overview: 12/03/13 - LSIL can't exclude HSIL, colpo ordered - KJ 11/26/13 - repeat pap today - 11/18/2013 Patient had an abnormal Pap done by Dr. Nixon in 2012. Patient states it was a positive HPV. Patient signed a release of records form to obtain her Pap results from Dr. Nixon. TKRN Patient requested diagnostic testing 11/18/2013 05/04/2014 Overview: 11/18/2013 Patient desires early screening in with sequential testing. TKRN 12/30/2013She opted for non-invasive testing (NIPT). TKRN Smoker 10/31/2012 11/26/2013 documented as of this encounter (statuses as of 01/24/2023) [facility] [place] History of Past illness Narrative* Problem Noted Date Diagnosed Date Resolved Date Primary herpes simplex 11/29/201506/14 Overview: Primary outbreak at 22 weeks gestation confirmed by culture. Jany Temple, 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 , currently in second trimester 11/01/2015 0 06/14/2016 Overview: Normal maternity 21 at [facility]. Also had [facility]. See scanned documents. Jany Temple, DO Trichomonal vaginitis during in second trimester 10/17/2015 06/14/2016 Overview: 02/08/16 - last trich negative - KJ 01/12/16 - trich still positive, will treat again, patient states no longer with partner - KJ 10/17/15: needs REX and cultures repeated at 36 wks. Encounter for supervision of normal first in second trimester 09/27/2015 06/14/2016 History of shoulder dystocia in prior 09/27/2015 06/14/2016 Overview: 01/12/16 - patient desires primary , will schedule - KJ Early GCT normal. Plan for growth scans in 3rd trimester and if normal plan for vaginal delivery 39/40 weeks. Jany Temple, Recurrent loss, currently 4 05/04/2014 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 , currently 11/18/2013 07/17/2014 Overview: 11/26/13 - NT with MFM ordered - KJ 11/18/2013 She is . She had care her first with Dr. Casper and went into labor and was transferred to [place] and delivered there at 30 weeks. The baby had Trisomy 18 and lived for 3 days. She did have genetic counseling at [facility]. She had a D&C for a miscarriage 11/06/2010 and January 2011. Quantitative hCG and serum progesterone ordered today by Dr. Childress, with a repeat quantitative hCG in 48 hours. Patient denies any bleeding, pain, or cramping this . She is to call/come in if she develops any bleeding, pain, or PRN problems. TKRN Quit smoking 11/18/2013 06/14/2016 Overview: 11/18/2013Pt recently quit smoking 11/06/2013. Discussed risks of smoking during and advised pt to continue not smoking. TKRN Complications of obstetrical surgery and procedures 11/18/2013 05/04/2014 Overview: 11/18/2013Patient has a history of uterine perforation at the time of a D&C in January of 2011. TKRN History of recurrent UTI (ur inary tract infection) 11/18/2013 06/14/2016 Overview: 11/18/2013Pt has a history of recurrent UTI the past 5 years. Discussed importance of reporting the onset of any symptoms of a UTI should it occur during . TKRN Rh negative status during 11/18/2013 07/17/2014 Overview: 11/18/2013 Pt is RH negative. She is a Rhogam candidate. TKRN History of abnormal Pap smear 11/18/2013 07/17/2014 Overview: 12/03/13 - LSIL can't exclude HSIL, colpo ordered - KJ 11/26/13 - repeat pap today - KJ 11/18/2013 Patient had an abnormal Pap done by Dr. Nixon in 2012. Patient states it was a positive HPV. Patient signed a release of records form to obtain her Pap results from Dr. Nixon. TKRN Patient requested diagnostic testing 11/18/2013 05/04/2014 Overview: 11/18/2013 Patient desires early screening in with sequential testing. TKRN 12/30/2013She opted for non-invasive testing (NIPT). TKRN Smoker 10/31/2012 11/26/2013 documented as of this encounter (statuses as of 06/06/2023) [facility] [place]2016 History of Past illness Narrative* Problem Noted Date Diagnosed Date Resolved Date Primary herpes simplex 11/29/201506/14 Overview: Primary outbreak at 22 weeks gestation confirmed by culture. Jany Temple, 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 , currently in second trimester 11/01/2015 0 06/14/2016 Overview: Normal maternity 21 at [facility]. Also had sequential [facility]. See scanned documents. Jany Temple, DO Trichomonal vaginitis during in second trimester 10/17/2015 06/14/2016 Overview: 02/08/16 - last trich negative - KJ 01/12/16 - trich still positive, will treat again, patient states no longer with partner - KJ 10/17/15: needs REX and cultures repeated at 36 wks. Encounter for supervision of normal first in second trimester 09/27/2015 06/14/2016 History of shoulder dystocia in prior 09/27/2015 06/14/2016 Overview: 01/12/16 - patient desires primary , will schedule - KJ Early GCT normal. Plan for growth scans in 3rd trimester and if normal plan for vaginal delivery 39/40 weeks. Jany Temple, DO Recurrent loss, currently 4 05/04/2014 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 , currently 11/18/2013 07/17/2014 Overview: 11/26/13 - NT with MFM ordered - KJ 11/18/2013 She is . She had care her first with Dr. Casper and went into labor and was transferred to [place] and delivered there at 30 weeks. The baby had Trisomy 18 and lived for 3 days. She did have genetic counseling at [facility]. She had a D&C for a miscarriage 11/06/2010 and January 2011. Quantitative hCG and serum progesterone ordered today by Dr. Childress, with a repeat quantitative hCG in 48 hours. Patient denies any bleeding, pain, or cramping this . She is to call/come in if she develops any bleeding, pain, or PRN problems. TKRN Quit smoking 11/18/2013 06/14/2016 Overview: 11/18/2013Pt recently quit smoking 11/06/2013. Discussed risks of smoking during and advised pt to continue not smoking. TKRN Complications of obstetrical surgery and procedures 11/18/2013 05/04/2014 Overview: 11/18/2013Patient has a history of uterine perforation at the time of a D&C in January of 2011. TKRN History of recurrent UTI (ur inary tract infection) 11/18/2013 06/14/2016 Overview: 11/18/2013Pt has a history of recurrent UTI the past 5 years. Discussed importance of reporting the onset of any symptoms of a UTI should it occur during . TKRN Rh negative status during 11/18/2013 07/17/2014 Overview: 11/18/2013 Pt is RH negative. She is a Rhogam candidate. TKRN History of abnormal Pap smear 11/18/2013 07/17/2014 Overview: 12/03/13 - LSIL can't exclude HSIL, colpo ordered - 11/26/13 - repeat pap today - 11/18/2013 Patient had an abnormal Pap done by Dr. Nixon in 2012. Patient states it was a positive HPV. Patient signed a release of records form to obtain her Pap results from Dr. Nixon. TKRN Patient requested diagnostic testing 11/18/2013 05/04/2014 Overview: 11/18/2013 Patient desires early screening in with sequential testing. TKRN 12/30/2013She opted for non-invasive testing (NIPT). TKRN Smoker 10/31/2012 11/26/2013 documented as of this encounter (statuses as of 06/07/2023) [facility] [place]2016 History of Past illness Narrative* Problem Noted Date Diagnosed Date Resolved Date Primary herpes simplex 11/29/201506/14 Overview: Primary outbreak at 22 weeks gestation confirmed by culture. Jany Temple DO 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 , currently in second trimester 11/01/2015 0 06/14/2016 Overview: Normal maternity 21 at [facility]. Also had sequential screen [facility]. See scanned documents. Jany Vandevelde, DO Trichomonal vaginitis during in second trimester 10/17/2015 06/14/2016 Overview: 02/08/16 - last trich negative - KJ 01/12/16 - trich still positive, will treat again, patient states no longer with partner - KJ 10/17/15: needs REX and cultures repeated at 36 wks. Encounter for supervision of normal first in second trimester 09/27/2015 06/14/2016 History of shoulder dystocia in prior 09/27/2015 06/14/2016 Overview: 01/12/16 - patient desires primary , will schedule - KJ Early GCT normal. Plan for growth scans in 3rd trimester and if normal plan for vaginal delivery 39/40 weeks. Jany Temple, DO Recurrent loss, currently 4 05/04/2014 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 , currently 11/18/2013 07/17/2014 Overview: 11/26/13 - NT with MFM ordered - KJ 11/18/2013 She is . She had care her first with Dr. Casper and went into labor and was transferred to [place] and delivered there at 30 weeks. The baby had Trisomy 18 and lived for 3 days. She did have genetic counseling at [facility]. She had a D&C for a miscarriage 11/06/2010 and January 2011. Quantitative hCG and serum progesterone ordered today by Dr. Childress, with a repeat quantitative hCG in 48 hours. Patient denies any bleeding, pain, or cramping this . She is to call/come in if she develops any bleeding, pain, or PRN problems. TKRN Quit smoking 11/18/2013 06/14/2016 Overview: 11/18/2013Pt recently quit smoking 11/06/2013. Discussed risks of smoking during and advised pt to continue not smoking. TKRN Complications of obstetrical surgery and procedures 11/18/2013 05/04/2014 Overview: 11/18/2013Patient has a history of uterine perforation at the time of a D&C in January of 2011. TKRN History of recurrent UTI (ur inary tract infection) 11/18/2013 06/14/2016 Overview: 11/18/2013Pt has a history of recurrent UTI the past 5 years. Discussed importance of reporting the onset of any symptoms of a UTI should it occur during . TKRN Rh negative status during 11/18/2013 07/17/2014 Overview: 11/18/2013 Pt is RH negative. She is a Rhogam candidate. TKRN History of abnormal Pap smear 11/18/2013 07/17/2014 Overview: 12/03/13 - LSIL can't exclude HSIL, colpo ordered - 11/26/13 - repeat pap today - 11/18/2013 Patient had an abnormal Pap done by Dr. Nixon in 2012. Patient states it was a positive HPV. Patient signed a release of records form to obtain her Pap results from Dr. Nixon. TKRN Patient requested diagnostic testing 11/18/2013 05/04/2014 Overview: 11/18/2013 Patient desires early screening in with sequential testing. TKRN 12/30/2013She opted for non-invasive testing (NIPT). TKRN Smoker 10/31/2012 11/26/2013 documented as of this encounter (statuses as of 11/27/2023) [facility] [place]02[facility]2016 History of Past illness Narrative* Problem Noted Date Diagnosed Date Resolved Date Primary herpes simplex 11/29/201506/14 Overview: Primary outbreak at 22 weeks gestation confirmed by culture. 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 Also had sequential screen [facility]. See scanned documents. Jany Temple, DO Trichomonal vaginitis during in second trimester 10/17/2015 06/14/2016 Overview: 02/08/16 - last trich negative - KJ 01/12/16 - trich still positive, will treat again, patient states no longer with partner - KJ 10/17/15: needs REX and cultures repeated at 36 wks. Encounter for supervision of normal first in second trimester 09/27/2015 06/14/2016 History of shoulder dystocia in prior 09/27/2015 06/14/2016 Overview: 01/12/16 - patient desires primary , will schedule - KJ Early GCT normal. Plan for growth scans in 3rd trimester and if normal plan for vaginal delivery 39/40 weeks. Jany Temple, DO Recurrent loss, currently 4 05/04/2014 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 , currently 11/18/2013 07/17/2014 Overview: 11/26/13 - NT with MFM ordered - ENZO 11/18/2013 She is . She had care her first with Dr. Casper and went into labor and was transferred to [place] and delivered there at 30 weeks. The baby had Trisomy 18 and lived for 3 days. She did have genetic counseling at [facility]. She had a D&C for a miscarriage 11/06/2010 and January 2011. Quantitative hCG and serum progesterone ordered today by Dr. Childress, with a repeat quantitative hCG in 48 hours. Patient denies any bleeding, pain, or cramping this . She is to call/come in if she develops any bleeding, pain, or PRN problems. TKRN Quit smoking 11/18/2013 06/14/2016 Overview: 11/18/2013Pt recently quit smoking 11/06/2013. Discussed risks of smoking during and advised pt to continue not smoking. TKRN Complications of obstetrical surgery and procedures 11/18/2013 05/04/2014 Overview: 11/18/2013Patient has a history of uterine perforation at the time of a D&C in January of 2011. TKRN History of recurrent UTI (ur inary tract infection) 11/18/2013 06/14/2016 Overview: 11/18/2013Pt has a history of recurrent UTI the past 5 years. Discussed importance of reporting the onset of any symptoms of a UTI should it occur during . TKRN Rh negative status during 11/18/2013 07/17/2014 Overview: 11/18/2013 Pt is RH negative. She is a Rhogam candidate. TKRN History of abnormal Pap smear 11/18/2013 07/17/2014 Overview: 12/03/13 - LSIL can't exclude HSIL, colpo ordered - KJ 11/26/13 - repeat pap today - KJ 11/18/2013 Patient had an abnormal Pap done by Dr. Nixon in 2012. Patient states it was a positive HPV. Patient signed a release of records form to obtain her Pap results from Dr. Nixon. TKRN Patient requested diagnostic testing 11/18/2013 05/04/2014 Overview: 11/18/2013 Patient desires early screening in with sequential testing. TKRN 12/30/2013She opted for non-invasive testing (NIPT). TKRN Smoker 10/31/2012 11/26/2013 documented as of this encounter (statuses as of 11/29/2023) [facility] [place]2016 History of Past illness Narrative* Problem Noted Date Diagnosed Date Resolved Date Primary herpes simplex 11/29/201506/14 Overview: Primary outbreak at 22 weeks gestation confirmed by culture. 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 Also had sequential screen at [facility]. See scanned documents. Jany Temple, DO Trichomonal vaginitis during in second trimester 10/17/2015 06/14/2016 Overview: 02/08/16 - last trich negative - KJ 01/12/16 - trich still positive, will treat again, patient states no longer with partner - KJ 10/17/15: needs REX and cultures repeated at 36 wks. Encounter for supervision of normal first in second trimester 09/27/2015 06/14/2016 History of shoulder dystocia in prior 09/27/2015 06/14/2016 Overview: 01/12/16 - patient desires primary , will schedule - KJ Early GCT normal. Plan for growth scans in 3rd trimester and if normal plan for vaginal delivery 39/40 weeks. Jany Temple, DO Recurrent loss, currently 4 05/04/2014 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 , currently 11/18/2013 07/17/2014 Overview: 11/26/13 - NT with MFM ordered - KJ 11/18/2013 She is . She had care her first with Dr. Casper and went into labor and was transferred to [place] and delivered there at 30 weeks. The baby had Trisomy 18 and lived for 3 days. She did have genetic counseling at [facility]. She had a D&C for a miscarriage 11/06/2010 and January 2011. Quantitative hCG and serum progesterone ordered today by Dr. Childress, with a repeat quantitative hCG in 48 hours. Patient denies any bleeding, pain, or cramping this . She is to call/come in if she develops any bleeding, pain, or PRN problems. TKRN Quit smoking 11/18/2013 06/14/2016 Overview: 11/18/2013Pt recently quit smoking 11/06/2013. Discussed risks of smoking during and advised pt to continue not smoking. TKRN Complications of obstetrical surgery and procedures 11/18/2013 05/04/2014 Overview: 11/18/2013Patient has a history of uterine perforation at the time of a D&C in January of 2011. TKRN History of recurrent UTI (ur inary tract infection) 11/18/2013 06/14/2016 Overview: 11/18/2013Pt has a history of recurrent UTI the past 5 years. Discussed importance of reporting the onset of any symptoms of a UTI should it occur during . TKRN Rh negative status during 11/18/2013 07/17/2014 Overview: 11/18/2013 Pt is RH negative. She is a Rhogam candidate. TKRN History of abnormal Pap smear 11/18/2013 07/17/2014 Overview: 12/03/13 - LSIL can't exclude HSIL, colpo ordered - 11/26/13 - repeat pap today - 11/18/2013 Patient had an abnormal Pap done by Dr. Nixon in 2012. Patient states it was a positive HPV. Patient signed a release of records form to obtain her Pap results from Dr. Nixon. TKRN Patient requested diagnostic testing 11/18/2013 05/04/2014 Overview: 11/18/2013 Patient desires early screening in with sequential testing. TKRN 12/30/2013She opted for non-invasive testing (NIPT). TKRN Smoker 10/31/2012 11/26/2013 documented as of this encounter (statuses as of 11/29/2023) [facility] Author Chanda Estrella [facility] Note Date/Time January 01, 2025 5:1 5pm [facility] Medical Records Department [address] [place] [address] Anesthesia Postop Eval I 01/01/25 1621 MR#: [id number] Acct: [id number] Name: PENNIE KOENIG Rep #:[id number] : 1995 29 From: Chanda carlisle CRNA PCP: Dr. Lashawn Avila, DO Status:REG SDC Y Race: C Location: [place] [address] Anesthesia: Postop Eval I Current Vital Signs Temperature: 97.4 F Pulse Rate: 118 Blood Pressure: 126/68 Respiratory Rate: 16 Pulse Ox: 100 Oxygen Delivery Method: Room Air Assessment Airway patent: Yes Spontaneous unlabored respirations: Yes Mental status: Awake and Calm nausea: No Vomiting: No Anesthesia Complication: No Fluid Hydration Crystalloid volume administer (ml): 600 Total IV fluid infused: 600 Progress Note Anesthesia document: Postop Eval 1 completed: Yes 01/01/25 1621 <Electronically signed by Chanda king CRNA> Date _ Chanda Estrella CRNA Cosigner Signature: Date CC: ~ Signed [facility] Work Phone: Consult note Author Danelle Dave [facility] Note Date/Time January 01, 2025 5:1 5pm [facility] Medical Records Department [address] [place] [id number] Anesthesia Postop Eval II 01/01/25 1634 MR#: [id number] Acct: [id number] Name: PENNIE KOENIG Rep #:[id number] : 1995 29 From: Danelle Dave PCP: Dr. Lashawn Avila, DO Status:REG SDC Y Race: C Location: [place] [address] Anesthesia Postop Eval I Sum Postop Eval Completion status Anesthesia document: Postop Eval 1 completed: Yes Anesthesia Postop Eval I Summary Anesthesia Postop Eval I Summary: Anesthesia Postop Eval I: Assessment Summary 3 Airway patent Yes 01/01/25 16:21 [facility]SKOBY Spontaneous unlabored Yes 01/01/25 16:21 [facility].SKOBY respirations Mental status Awake,Calm 01/01/25 16:21 [facility].SKOBY nausea No 01/01/25 16:21 [facility].SKOBY Vomiting No 01/01/25 16:21 [facility].SKOBY Anesthesia Postop Eval I: Fluid Summary Crystalloid volume administer 600 01/01/25 16:21 MANAGER [facility]ARE UNIT.SKOBY (ml) Colloids volume administered ( ml) Blood Product volume administered (ml) Total IV fluid infused 600 01/01/25 16:21 CECY Anesthesia Postop Eval I: Summary Notes Anesthesia Complication No 01/01/25 16:21 MANAGER INTENSIVE CARE UNITLADYOBJay Anesthesia Complication Comment: Post-operative progress note Anesthesia: Postop Eval II Evaluation Mental status: Awake Pain Level: 2 nausea: No Vomiting: No 01/01/25 1634 <Electronically signed by Danelle nickerson> Date _ Danelle Dave Cosigner Signature: Date CC: ~ Signed [facility] Work Phone: Discharge summary Author Brittany Rodriguez [facility] Note Date/Time January 01, 2025 3:5 8pm [facility] Medical Records Department [address] [place] [id number] Instructions for Home/Discharge Instructions 01/01/25 1555 MR#: [id number] Acct: [id number] Name: PENNIE KOENIG Rep #:[id number] : 1995 29 From: Brittany Burgess PCP: Dr. Lashawn Avila, DO [place] [facility] Inst[place] Diet Discharge Diet: No restrictions Activity Discharge Activity: Return to Normal Activity Dressing / Incision Call your doctor if you observe: Fever of 101 or Higher, Inability to urinate and Inability to have a bowel movement Follow Up Care Please Follow Up With: Brtitany Rodriguez MD When: In the office with a KUB in 2 to 3 weeks, the office will call for follow- up appointment. Test Results: Test results from this visit will be discussed in further detail at your follow- up appointment, if applicable. Discharge Plan Admission Attending Provider: Brittany Rodriguez Primary Care Provider: Lashawn Avila Instructions Print Language: Bahamian Discharge Orders/Prescriptions Prescriptions: New ciprofloxacin HCl [Cipro] 250 mg tablet 250 mg PO BID Qty: 6 0RF ondansetron 8 mg tablet,disintegrating 8 mg PO Q8H PRN (Reason: nausea and vomiting) Qty: 10 0RF oxycodone-acetaminophen 5-325 mg tablet 1 tab PO Q8H PRN (Reason: pain) 3 Days Qty: 10 0RF Continued bupropion HCl [Wellbutrin SR] 150 mg tablet sustained-release 12 hr 150 mg PO QDAY lorazepam 1 mg tablet 1 mg PO BID PRN PRN (Reason: anxiety) ondansetron 8 mg tablet,disintegrating 8 mg PO Q8H PRN (Reason: nausea and vomiting) Qty: 10 0RF citalopram 40 mg tablet 40 mg PO DAILY tamsulosin [Flomax] 0.4 mg capsule 0.4 mg PO DAILY 14 Days Qty: 14 0RF oxycodone-acetaminophen [Endocet] 5-325 mg tablet 1 tab PO Q6H PRN (Reason: pain) 1 Days Qty: 4 0RF acyclovir 400 mg tablet See Rx Instructions .ROUTE .COMPLEX Qty: 60 12RF Dose Instruction: take 1 tablet by mouth twice a day Rx Instructions: take 1 tablet by mouth twice a day Referrals / Follow Up: Lashawn Avila DO [Primary Care Provider] - Disposition Disposition (needs filled in before D/C Order can be placed): Home, Self Care 01/01/25 7796<Electronically signed by Brittany Rodriguez MD>Brittany Rodriguez MD CC: Dr. Lashawn Avila DO ~ Signed [facility] Work Phone: Evaluation + Plan note No data available for this section [facility] Evaluation note* Diagnosis Onset Date Resolution Status ASCUS of cervix with negative high risk HPV acute Genital herpes chronic Vaginitis and vulvovaginitis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 RN) cyclobenzaprine (Flexeril) tablet 5 mg (COMPLETED) 5 mg, Oral, Once, On Sun11/02/23 at 1105, For 1 dose 1122 (Given - Provid er: Norris Barbosa RN) HYDROmorphone (Dilaudid) injection 1 mg (COMPLETED) 1 mg, IntraVENous, Once, On Sun11/02/23 at 0845, For 1 dose, If oral and IV narcotics ordered, use oral first and only use IV if oral is ineffective or cannot take oral. Do Not give oral and IV within 1 hour of each other unless specifically ordered. 0848 (Given - Provid er: Ro Carrizales RN) HYDROmorphone (Dilaudid) injection 1 mg (COMPLETED) 1 mg, IntraVENous, Once, On Sun11/02/23 at 1030, For 1 dose, If oral and IV narcotics ordered, use oral first and only use IV if oral is ineffective or cannot take oral. Do Not give oral and IV within 1 hour of each other unless specifically ordered. 1031 (Given - Provid er: Ro Carrizales RN) ketorolac (Toradol) injection 30 mg (COMPLETED) 30 mg, IntraVENous, Once, On Sun11/02/23 at 1150, For 1 dose 1227 (Given - Provid er: Norris Barbosa RN) Lidocaine 4 % patch 1 patch 1 patch, TransDERmal, Administer over 12 Hours, Daily, First dose on Sun11/02/23 at 1105, Apply patch to upper abdomen. Patch may remain in place for up to 12 hours in any 24 hour period. 1122 (Medication Lucas lied - Provider: Norris Barbosa RN - Comment: Back)1238 (Due: Medication Removed - Provider: Automatic Discharge Provider - Comment: Time automatically adjusted from order being discontinued) INFORMATION SOURCE (unrecogn ized section and content) DATE CREATED AUTHOR 11/08/2023 [employer] [facility] DATE CREATED AUTHOR AUTHOR'S ORGANIZ ATION 06/12/2024 [facility] ([place]) DATE CREATED AUTHOR AUTHOR'S ORGANIZ ATION 02/01/2025 [facility] DATE CREATED AUTHOR AUTHOR'S ORGANIZ ATION 04/24/2025 [facility] DATE CREATED AUTHOR AUTHOR'S ORGANIZ ATION 05/21/2025 [facility] DATE CREATED AUTHOR AUTHOR'S ORGANIZ ATION 05/22/2025 [facility] FOR RECORDS PERTAINING TO PATIENTS WHO ARE OR HAVE BEEN ENROLLED IN A CHEMICAL DEPENDENCY/SUBSTANCEABUSE PROGRAM, SOME INFORMATION MAY BE OMITTED. This clinical summary was aggregated from multiple sources. Caution should be exercised in using it in the provision of clinical care. This summary normalizes information from multiple sources, and as a consequence, information in this document may materially change the coding, format and clinical context of patient data. In addition, data may be omitted in some cases. CLINICAL DECISIONS SHOULD BE BASED ON THE PRIMARY CLINICAL RECORDS. [facility]. provides no warranty or guarantee of the accuracy or completeness of information in this document.
== END | disposition home or self-care (01) ==
PROVIDERS: PCP Family Medicine; Visit Provider Nurse Practitioner Women's Health
DX: Z13.29 Encounter for screening for other suspected endocrine disorder (principal); R63.5 Abnormal weight gain; R23.2 Flushing
CPT/HCPCS: 36415; 82306; 84439; 84443; 85025; 86376

== ENCOUNTER 2025-06-21 23:34 | Emergency (ER) | payer MEDICAID, SELFPAY ==
--- NOTE | 2025-06-21 00:25 | RAD_ITS ---
PROCEDURE: ACUTE ABDOMEN INC CHEST 06/22/2025 REASON FOR EXAM: ABD PAIN TECHNIQUE: Procedure Code: RADABDCA Modality: DX Procedure: ACUTE ABDOMEN INC CHEST COMPARISON: CT scan on 02/12/2025. FINDINGS: Moderate amount of fecal residue in the large bowels. Clips are noted in the abdomen and pelvis. Normal visualized lung bases. There is an unremarkable bowel gas pattern. There is no demonstrated free abdominal air. Normal visualized liver. Normal visualized spleen. Normal visualized kidneys. The soft tissue structures of the pelvis are unremarkable. Normal visualized osseous structures. RAD/Acute Abdomen Inc Chest IMPRESSION: Moderate amount of fecal residue in the large bowels. Reading Location: [id number]
[2025-06-21 23:35] VITALS: BP 120/70; PULSE 68; RESP 18; TEMP 37.1; O2SAT 99; BMI 37.5
--- OUTSIDE RECORDS SUMMARY | 2025-06-22 00:02 | XMS RPT_ITS | CCD ---
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 [Mass/Vol] 33.4 g/dL Normal 32-36 [facility] Comment on above: Performed By: #### L 100.0100, L501.9520, L506.0400, L506.1001, L3300.6900 ####[facility] [address] [place], [address] MCV (RBC) [Entitic vol] 90.0 fL Normal 81-99 [facility] Comment on above: Performed By: #### L 100.0100, L501.9520, L506.0400, L506.1001, L3300.6900 ####[facility] [address] [place], [address] Monocytes/100 WBC (Bld) 11.2 % High 0-10 [facility] Comment on above: Performed By: #### L 100.0100, L501.9520, L506.0400, L506.1001, L3300.6900 ####[facility] [address] [place], [address] Neutrophils/100 WBC (Bld) 57.8 % Normal 47-70 [facility] Comment on above: Performed By: #### L 100.0100, L501.9520, L506.0400, L506.1001, L3300.6900 ####[facility] [address] [place], [address] Nucleated RBC (Bld) [#/Vol] 0 10*3/uL Normal 0-5 [facility] Comment on above: Performed By: #### L 100.0100, L501.9520, L506.0400, L506.1001, L3300.6900 ####[facility] [address] [place], [address] Platelet mean volume (Bld) [Entitic vol] 10.6 fL Normal 6.2-12.0 [facility] Comment on above: Performed By: #### L 100.0100, L501.9520, L506.0400, L506.1001, L3300.6900 ####[facility] [address] [place], [address] Platelets (Bld) [#/Vol] 295 10*3/uL Normal 150-450 [facility] Comment on above: Performed By: #### L 100.0100, L501.9520, L506.0400, L506.1001, L3300.6900 ####[facility] [address] [place], [address] RBC (Bld) [#/Vol] 4.12 10*6/uL Low 4.2-5.4 [facility] Comment on above: Performed By: #### L 100.0100, L501.9520, L506.0400, L506.1001, L3300.6900 ####[facility] [address] [place], [address] RDW SD 39.8 fl Normal 35.1-43.9 [facility] Comment on above: Performed By: #### L 100.0100, L501.9520, L506.0400, L506.1001, L3300.6900 ####[facility] [address] [place], [address] WBC (Bld) [#/Vol] 4.9 10*3/uL Normal 4.4-11.0 [facility] Comment on above: Performed By: #### L 100.0100, L501.9520, L506.0400, L506.1001, L3300.6900 ####[facility] [address] [place], [address] Eosinophil percentageOrdered By: Nathaly Olmedo on 05-27-2025 Eosinophils/100 WBC (Bld) 3.1 % 0-5 [facility] Erythrocyte distribution wid th ratioOrdered By: Nathalyfahad Olmedo on 05-27-2025 Erythrocyte distribution width (RBC) [Ratio] 12.2 % 11.6-14.6 [facility] Erythrocyte distribution wid th standard deviationOrdered By: Nathalyfahad Olmedo on 05-27-2025 Erythrocyte distribution width (RBC) [Ratio] 39.8 fl 35.1-43.9 [facility] Hematocrit Auto (Bld) [Volum e fraction]Ordered By: Nathalyfahad Olmedo on 05-27-2025 Hematocrit (Bld) [Volume fraction] 37.1 % 37-47 [facility] Hemoglobin measurementOrdere d By: Nathalyfahad Olmedo on 05-27-2025 Hemoglobin (Bld) [Mass/Vol] 12.4 g/dL 12.0-15.0 [facility] Immature granulocytes/100 WB C Auto (Bld)Ordered By: Nathalyfahad Olmedo on 05-27-2025 Immature granulocytes/100 WBC (Bld) 0.200 % 0.0-0.9 [facility] Comment on above: IG% - Immature Granu locytes (promyelocytes, myelocytes and metamyelocytes) > 1% indicates that a LEFT SHIFT is Present. MCV (mean corpuscular volume ) determinationOrdered By: Nathaly Olmedo on 05-27-2025 MCV (RBC) [Entitic vol] 90.0 fL 81-99 [facility] Mean corpuscular hemoglobin (MCH) determinationOrdered By: Nathalyfahad Olmedo 05-27-2025 MCH (RBC) [Entitic mass] 30.1 pg 27.0-32.0 [facility] Mean corpuscular hemoglobin concentration (MCHC) determinationOrdered By: Nathalyfahad Olmedo on 05-27-2025 MCHC (RBC) [Mass/Vol] 33.4 g/dL 32-36 [facility] Mean platelet volume determi nationOrdered By: Nathaly Olmedo 05-27-2025 Platelet mean volume (Bld) [Entitic vol] 10.6 fL 6.2-12.0 [facility] Monocyte percentageOrdered B y: Nathaly Olmedo on 05-27-2025 Monocytes/100 WBC (Bld) 11.2 % High 0-10 [facility] Neutrophil percentageOrdered By: Nathaly Olmedo on 05-27-2025 Neutrophils/100 WBC (Bld) 57.8 % 47-70 [facility] Nucleated red blood cell per centageOrdered By: Nathaly Olmedo on 05-27-2025 Nucleated RBC/100 WBC (Bld) [Ratio] 0 % 0-5 [facility] Senior Clinical Research Scientist Office Visit Reporton 05-27-2025 Senior Clinical Research Scientist Office Visit Report [facility] [address], [address] [place] [address] OFFICE VISIT Date of Service: 05/27/25 MR#: [id number] Acct: [id number] Name: PENNIE KOENIG Rep #: [id number] : 1995 Provider: DIANA peters Age/Sex: 30/F [place] [facility] [place] Status: Signed Intake Vital Signs 02/12/25 10:15 05/27/25 10:26 Height 5 ft 8 in 5 ft 8 in Weight: 213 lb 2 oz BMI 32.3 BP 113/73 Intake Visit Reasons: Hormone Problems Retirement Benefits Specialist Required: No Is patient in pain?: No Allergies amoxicillin (Amoxicillin) Allergy (Verified 05/27/25 10:24) Rash Penicillins Allergy (Verified 05/27/25 10:24) Rash Medications ???Medication ???Instructions ???Recorded ???Confirmed ???Type bupropion HCl 150 mg tablet,12 hr 150 mg PO DAILY depression 05/27/25 History sustained-release (Wellbutrin SR) lorazepam 1 mg tablet 1 mg PO BID PRN PRN anxiety 05/27/25 History citalopram 40 mg tablet 40 mg PO DAILY 12/31/24 05/27/25 H istory ondansetron 8 mg disintegrating 8 mg PO Q8H PRN nausea and 5 05/27/25 Rx tablet vomiting #10 tabs acyclovir 400 mg tablet 400 mg PO BID PRN herpes 02/12/25 05/27/25 History Is last menstrual period known: Yes Last Menstrual Period: 05/13/25 Post menopausal: No Patient : No : No Control Method: tubal PFSH Medical History Depression Kidney stones Back pain Gastric reflux Smoker delivery delivered Sterilization H/O shoulder dystocia in prior , currently 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 , currently Genital herpes OCD (obsessive compulsive disorder) Anxiety Surgical History Hx of cystoscopy H/O foot surgery H/O dilation and curettage Social History adopted: No household members: family housing: house number of children: 3 current occupational status: employed current occupation: [employer] pets and animals: Yes Smoking Status: Current every day smoker tobacco type: cigarettes second hand exposure: No alcohol intake: current details: social- not while substance use type: does not use seatbelt use: always do you feel safe at home: Yes additional social history: Spouse: Ashon- student ([employer]- 6, Wes-11) HPI Hormone Problems Details: PENNIE KOENIG is a 30 year old who presents for hot flashes and weight gain. States menses still every month. Has gained 25 lbs since last visit. Not watching diet. History of bilat salpingectomy Female Reproductive History Last Menstrual Period: 05/13/25 Cycle Length: 21-35 History 7 Elective abortions Hx Para 4 Spontaneous abortions Hx # Term Pregnancies Ectopic pregnancies Hx # Pregnancies Multiple births # of living children 4 Past Pregnancies Del. Date Name GA/Weeks Outcome Route Bth Weight Infant Gen Labor Lgth Anesthesia Del Locatn Provider FOB 07/10/14 Mar 39 live - full term 9lbs 6oz Female 12 hours epidural [facility] SMITA 03/17/16 Ashley 39 live - full term 8lbs 6oz Female 8-9 hours epidural [facility] [place] 09/03/17 Chastity 39 live - full term 8lbs 6oz Male 8 hours epidural [facility] Dr Rashaun Harvey 05/12/21 Marium 39 live - full term Male spinal H D r. Carl Delivery Date: 07/10/14 Last Updated by: Lisa Gallagher moderate shoulder dystocia Delivery Date: 03/17/16 Last Updated by: Lisa Gallagher IoL Delivery Date: 09/03/17 Last Updated by: Lisa Gallagher mild shoulder dystocia Delivery Date: 05/12/21 Last Updated by: Vero Panchal Primary csection due to hx of shoulder dystocia x3 ROS Const Constitutional: Reports as per HPI Eyes Eyes: Reports system reviewed and no additional complaints, except as documented GI GI: Denies abdominal pain or change in bowel habits : Reports as per HPI Exam Const General: cooperative and no acute distress Nutritional Appearance: obese Orientation: oriented x3 HENMT Head: normal to inspection and normocephalic Eyes General: appearance normal, both eyes and all related structures Neck Neck: normal visual inspection Resp Effort Inspection: normal respiratory effort Neuro Cognition: normal cognition Speech: speech normal Psych Appearance: grossly normal Mood: congruent mood Affect: normal affect Speech and Movement: speech and movement normal Attitude: cooperative Judgment: judgment good Coding Level of Care Code Off vis,est,level 3 Diagnoses Weight gain R63.5 Hot flashes R23.2 Assessment and Plan Assessment and Plan (1) Weight gain: St (more content not included)... Normal [facility] Platelet countOrdered By: Justin Olmedo on 05-27-2025 Platelets (Bld) [#/Vol] 295 10*3/uL 150-450 [facility] RBC Auto (Bld) [#/Vol]Ordere d By: Nathaly Olmedo on 05-27-2025 RBC (Bld) [#/Vol] 4.12 10*6/uL Low 4.2-5.4 [facility] Serum or plasma thyroperoxid ase antibody assay (units/volume)Ordered By: Nathaly Olmedo on 05-27-2025 TPO Ab Qn 9 [IU]/mL 0-34 [facility] Comment on above: Performed at: [address] [id number] Director: Channing Martinez PhD, Phone: [phone] T4 Free Directon 05-27-2025 T4 FREE DIRECT 0.90 ng/dL Normal 0.76-1.46 [facility] Comment on above: Performed By: #### L 100.0100, L501.9520, L506.0400, L506.1001, L3300.6900 ####[facility] [address] [place], [place], [id number] T4 freeOrdered By: Nathaly huntley on 05-27-2025 Free T4 [Mass/Vol] 0.90 ng/dL 0.76-1.46 [facility] TSH DL <= 0.005 mIU/L QnOrde red By: Nathaly Olmedo on 05-27-2025 TSH Qn 0.747 uIU/mL 0.300-4.200 [facility] Thyroid Stim Hormone (TSH)on 05-27-2025 TSH 0.747 uIU/mL Normal 0.300-4.200 [facility] Comment on above: Performed By: #### L 100.0100, L501.9520, L506.0400, L506.1001, L3300.6900 ####[facility] [address] [place], [address] Vitamin D,25 Hydroxyon 05-27 Vitamin D 25-OH 47.2 ng/mL Normal 30-100 [facility] Comment on above: Result Comment: Andreia min D Status Deficiency: <20 ng/mL (50nmol/L) Insufficiency: 20-30 ng/mL (50-75 nmol/L) Sufficiency: 30-100 ng/mL (75-250 nmol/L) Toxicity: >100 ng/mL (>250 nmol/L) Performed By: #### L 100.0100, L501.9520, L506.0400, L506.1001, L3300.6900 ####[facility] [address] [place], [address] White blood cell (WBC) count Ordered By: Nathaly Olmedo on 05-27-2025 WBC (Bld) [#/Vol] 4.9 10*3/uL 4.4-11.0 Ramona r [facility] Bacteria Ur Culton 5 Bacteria identified Cx Nom (U) ORGANISM ID: [...] , Intermediate >32 , Resistant >64 Abnormal [facility] Comment on above: Performed By: #### 6 30-4 #### [facility] CLIA [id number] [address] [place] [address] OF [facility] CNOVon 05-20-2025 CNOV Office Visit (WOUCA) ---- PENNIE KOENIG ([id number]) 1995 F Date Time Provider Department 05/20/25 10:00 AM BRAYDEN GUERRERO WOJULISSA During your visit today, we recorded the [...] to return if symptoms worsen. Recording using [employer] software for draft documentation of the visit was discussed with the patient/authorized enrollment representative; all questions welcomed and answered. Patient/authorized enrollment representative agreed to proceed Diagnosis and treatment [...] Diagnosis:Urinary frequency [R35.0] Order(s):UA DIP, URINE (POC) [4511530] Order #: [id number]. #:[id number] BACTERIAL CULTURE, URINE [SQURCUL] Order #: [id number]. #:[id number] nitrofurantoin monohydrate and macrocrystal (MACROBID) 100 mg capsuleTake 1 capsule by mouth two times a day for 5 days.Disp: 10 capsuleRfl: 0 fluconazole (DIFLUCAN) 150 mg tabletTake 1 tablet by mouth one time only for 1 dose. Repeat in 72 hours if symptoms are persistentDisp: 2 tabletRfl: 0 Prescriptions as (more content not included)... Normal [facility] CT HEAD OR BRAIN W/O CONTRAS Ton [...] 04/14/2025 1:00:05 PM Ordering Provider: COTY IBARRA [facility] MAIN CT SPINE CERVICAL W/O CONTRA STon 04-14-2025 CT SPINE CERVICAL W/O CONTRAST ORIGINAL [...] 04/14/2025 1:11:17 PM Ordering Provider: COTY IBARRA [facility] MAIN XR CHEST 1 VIEWon 04-14-2025 XR CHEST [...] 04/14/2025 12:58:48 PM Ordering Provider: COTY IBARRA [facility] MAIN Amphetamine detection with 1 000 ng/mL as cutoffOrdered By: Lashawn Avila on 03-11-2025 Amphetamines Screen method >1000 ng/mL Ql (U) Negative < 200 ng/mL [facility] No Panel InformationOrdered By: Lashawn Avila on 03-11-2025 Urine Buprenorphine Qualitative Positive < 200 ng/mL [facility] Comment on above: If confirmation test ing is needed, a separate order will be required to send out testing to the reference laboratory. Urine Oxycodone Screen Negative < 100 ng/mL [facility] Quantitative urine opiates m easurementOrdered By: Lashawn Avila on 03-11-2025 Opiates Ql (U) Negative < 300 ng/mL [facility] Screening urine fentanyl marisel surementOrdered By: Lashawn Avila on 03-11-2025 fentaNYL Screen Ql (U) Negative [facility] Urine Drug Screen (VISTA)on 03-11-2025 AMPHETAMINES Negative Normal <1000 ng/mL [facility] Comment on above: Order Comment: UNK Performed By: #### L 505.5000 #### [facility] [address] [place] [address] BARBITIURATES Negative Normal < 200 ng/mL [facility] Comment on above: Order Comment: UNK Performed By: #### L 505.5000 #### [facility] [address] [place] [address] BENZODIAZIPINE Positive Normal < 200 ng/mL [facility] Comment on above: Order Comment: UNK Result Comment: If c onfirmation testing is needed, a separate order will be required to send out testing to the reference laboratory. Performed By: #### L 505.5000 #### [facility] [address] [place] [address] BUP Ur Drug Scr Positive Normal < 200 ng/mL [facility] Comment on above: Order Comment: UNK Result Comment: If c onfirmation testing is needed, a separate order will be required to send out testing to the reference laboratory. Performed By: #### L 505.5000 #### [facility] [address] [place] [address] COCAINE Negative Normal < 300 ng/mL [facility] Comment on above: Order Comment: UNK Performed By: #### L 505.5000 #### [facility] [address] [place] [address] Fentanyl Negative Normal [facility] Comment on above: Order Comment: UNK Performed By: #### L 505.5000 #### [facility] [address] [place] [address] METHADONE Negative Normal < 300 ng/mL [facility] Comment on above: Order Comment: UNK Performed By: #### L 505.5000 #### [facility] [address] [place] [address] OPIATES Negative Normal < 300 ng/mL [facility] Comment on above: Order Comment: UNK Performed By: #### L 505.5000 #### [facility] [address] [place] [address] OXYCODONE Negative Normal < 100 ng/mL [facility] Comment on above: Order Comment: UNK Performed By: #### L 505.5000 #### [facility] [address] [place] [address] PCP Negative Normal < 25 ng/mL [facility] Comment on above: Order Comment: UNK Performed By: #### L 505.5000 #### [facility] [address] [place] [address] THC Negative Normal < 50 ng/mL [facility] Comment on above: Order Comment: UNK Performed By: #### L 505.5000 #### [facility] [address] [place] [address] Urine benzodiazepine levelOr dered By: Lashawn Avila on 03-11-2025 Benzodiazepines Ql (U) Positive < 200 ng/mL [facility] Comment on above: If confirmation test ing is needed, a separate order will be required to send out testing to the reference laboratory. Urine cocaine levelOrdered B y: Lashawn Avila on 03-11-2025 Cocaine Ql (U) Negative < 300 ng/mL [facility] Urine jpopv-4-qevvxbwkwrmbks abinol (THC) measurementOrdered By: Lashawn Avila on 03-11-2025 Cannabinoids Screen Ql (U) Negative < 50 ng/mL [facility] Urine phencyclidine (PCP) de tectionOrdered By: Lashawn Avila on 03-11-2025 Phencyclidine Ql (U) Negative < 25 ng/mL [facility] Abdomen/Pelvis without Conto n 02-12-2025 Abdomen/Pelvis without Cont [facility] [address] [place], [place] [id number] Abdomen/Pelvis without Cont MR#: [id number] Acct: [id number] Name: PENNIE KOENIG Rep #: [id number] : 1995 F 30 From: Tonio Benson MD PCP: Dr. Lashawn Avila, DO Status: REG ER Study: Abdomen/Pelvis without Cont Date of Exam: 11/08 Exam# [id number] Ordering Dr: Deacon Le MD PROCEDURE: ABDOMEN/PELVIS [...] Deacon Le MD; Dr. 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: Signed Normal [facility] Absolute lymphocyte countOrd ered By: Deacon Le on 02-12-2025 Lymphocytes Auto (Unsp spec) [#/Vol] 0.84 10*3/uL 0.83-4.51 [facility] Absolute neutrophil countOrd ered By: Deacon Le on 02-12-2025 Neutrophils (Bld) [#/Vol] 5.7 10*3/uL 2.0-7.7 [facility] Anion gap in Serum or Plasma Ordered By: Deacon Le on 02-12-2025 Anion gap [Moles/Vol] 10 mmol/L 5-15 [facility] Automated lymphocyte count a s percentage of total leukocytesOrdered By: Deacon Le on 02-12-2025 Lymphocytes/100 WBC Auto (Unsp spec) 11.5 % Low 19-41 [facility] BUN/creatinine ratioOrdered By: Deacon Le on 02-12-2025 Urea nitrogen/Creatinine [Mass ratio] 8.0 mg/mg Low 10-20 [facility] Basic Metabolic Profile (BMP )on 02-12-2025 BUN/CRE 8.0 RATIO Low 10-20 [facility] Comment on above: Performed By: #### L 505.5000 #### [facility] [address] [place], [address] Calcium [Mass/Vol] 8.1 mg/dL Normal 7.6-11.0 [facility] Comment on above: Performed By: #### L 505.5000 #### [facility] [address] [place], [address] Chloride [Moles/Vol] 100 mmol/L Normal 98-108 [facility] Comment on above: Performed By: #### L 505.5000 #### [facility] [address] [place], [address] CO2 [Moles/Vol] 22.1 mmol/L Normal 21.0-32.0 [facility] Comment on above: Performed By: #### L 505.5000 #### [facility] [address] [place], [address] Creatinine [Mass/Vol] 0.93 mg/dL Normal 0.70-1.20 [facility] Comment on above: Performed By: #### L 505.5000 #### [facility] [address] [place], [address] ECRCL 111.05 ml/min Normal 50-250 [facility] Comment on above: Performed By: #### L 505.5000 #### [facility] [address] [place], [address] GAP 10 Normal 5-15 [facility] Comment on above: Performed By: #### L 505.5000 #### [facility] [address] [place], [address] GFR/1.73 sq M.predicted among non-blacks MDRD (S/P/Bld) [Vol rate/Area] 85 mL/min/{1.73_m2} Normal >60 [facility] Comment on above: Result Comment: mL/m in/1.73m2 CKD-EPI Creatinine Equation (2020) Performed By: #### L 505.5000 #### [facility] [address] [place], [address] Glucose [Mass/Vol] 79 mg/dL Normal 70-99 [facility] Comment on above: Performed By: #### L 505.5000 #### [facility] [address] [place], [address] Potassium [Moles/Vol] 3.9 mmol/L Normal 3.3-5.1 [facility] Comment on above: Performed By: #### L 505.5000 #### [facility] [address] [place], [address] Sodium [Moles/Vol] 132 mmol/L Low 133-145 [facility] Comment on above: Performed By: #### L 505.5000 #### [facility] [address] [place], [address] Urea nitrogen [Mass/Vol] 7 mg/dL Normal 4-19 [facility] Comment on above: Performed By: #### L 505.5000 #### [facility] [address] [place], [address] Basophil percentageOrdered B y: Deacon Le on 02-12-2025 Basophils/100 WBC (Bld) 0.1 % 0-1 [facility] Bilirubin Test strip Ql (U)O rdered By: Deacon Le on 02-12-2025 Bilirubin Ql (U) Negative Negative [facility] CBC W/Diff, Automatedon Absolute Lymph 0.84 X10 3/uL Normal 0.83-4.51 [facility] Comment on above: Performed By: #### L 505.5000 #### [facility] [address] [place], [address] Absolute Neut 5.7 X10 3/uL Normal 2.0-7.7 [facility] Comment on above: Performed By: #### L 505.5000 #### [facility] [address] [place], [address] Basophils/100 WBC (Bld) 0.1 % Normal 0-1 [facility] Comment on above: Performed By: #### L 505.5000 #### [facility] [address] [place], [address] Eosinophils/100 WBC (Bld) 0.1 % Normal 0-5 [facility] Comment on above: Performed By: #### L 505.5000 #### [facility] [address] [place], [address] Erythrocyte distribution width (RBC) [Ratio] 12.2 % Normal 11.6-14.6 [facility] Comment on above: Performed By: #### L 505.5000 #### [facility] [address] [place], [address] Hematocrit (Bld) [Volume fraction] 33.6 % Low 37-47 [facility] Comment on above: Performed By: #### L 505.5000 #### [facility] [address] [place], [address] Hemoglobin (Bld) [Mass/Vol] 11.6 g/dL Low 12.0-15.0 [facility] Comment on above: Performed By: #### L 505.5000 #### [facility] [address] [place] [place], [address] IG% 0.400 Normal 0.0-0.9 [facility] Comment on above: Result Comment: IG% - Immature Granulocytes (promyelocytes, myelocytes and metamyelocytes) > 1% indicates that a LEFT SHIFT is Present. Performed By: #### L 505.5000 #### [facility] [place] [place], [address] Lymphocytes/100 WBC (Bld) 11.5 % Low 19-41 [facility] Comment on above: Performed By: #### L 505.5000 #### [facility] [address] [place], [address] MCH (RBC) [Entitic mass] 30.3 pg Normal 27.0-32.0 [facility] Comment on above: Performed By: #### L 505.5000 #### [facility] [address] [facility] [place], [address] MCHC (RBC) [Mass/Vol] 34.5 g/dL Normal 32-36 [facility] Comment on above: Performed By: #### L 505.5000 #### [facility] [address] [place], [address] MCV (RBC) [Entitic vol] 87.7 fL Normal 81-99 [facility] Comment on above: Performed By: #### L 505.5000 #### [facility] [address] [place], [address] Monocytes/100 WBC (Bld) 10.0 % Normal 0-10 [facility] Comment on above: Performed By: #### L 505.5000 #### [facility] [place], [address] Neutrophils/100 WBC (Bld) 77.9 % High 47-70 [facility] Comment on above: Performed By: #### L 505.5000 #### [facility] [place], [address] Nucleated RBC (Bld) [#/Vol] 0 10*3/uL Normal 0-5 [facility] Comment on above: Performed By: #### L 505.5000 #### [facility] [place], [address] Platelet mean volume (Bld) [Entitic vol] 10.0 fL Normal 6.2-12.0 [facility] Comment on above: Performed By: #### L 505.5000 #### [facility] [place], [address] Platelets (Bld) [#/Vol] 252 10*3/uL Normal 150-450 [facility] Comment on above: Performed By: #### L 505.5000 #### [facility] [place], [address] RBC (Bld) [#/Vol] 3.83 10*6/uL Low 4.2-5.4 [facility] Comment on above: Performed By: #### L 505.5000 #### [facility] [place], [address] RDW SD 39.5 fl Normal 35.1-43.9 [facility] Comment on above: Performed By: #### L 505.5000 #### [facility] [address] [place], [address] WBC (Bld) [#/Vol] 7.3 10*3/uL Normal 4.4-11.0 [facility] Comment on above: Performed By: #### L 505.5000 #### [facility] [address] [place], [address] Carbon dioxide, total [Moles /volume] in Central venous bloodOrdered By: Deacon Le on 02-12-2025 CO2 [Moles/Vol] 22.1 mmol/L 21.0-32.0 [facility] Chloride assayOrdered By: Rob Le on 02-12-2025 Chloride [Moles/Vol] 100 mmol/L 98-108 [facility] Emergency Department Summary on 02-12-2025 Emergency Department Summary [facility] Medical Records Department [address] [place] [address] Emergency Department Summary 02/12/25 MR#: [id number] Acct: [id number] Name: PENNIE KOENIG Rep #: [id number] : 1995 30 From: Deacon Le MD [...] pain. Denies other exacerbating or alleviating factors. [facility] Medical History Depression Kidney stones Back pain [...] 3 current occupational status: employed current occupation: [employer] pets and animals: Yes Smoking Status: Current [...] other electrolytes (more content not included)... Normal [facility] Eosinophil percentageOrdered By: Deacon Le on 02-12-2025 Eosinophils/100 WBC (Bld) 0.1 % 0-5 [facility] Erythrocyte distribution wid th ratioOrdered By: Deacon Le on 02-12-2025 Erythrocyte distribution width (RBC) [Ratio] 12.2 % 11.6-14.6 [facility] Erythrocyte distribution wid th standard deviationOrdered By: Deacon Le on 02-12-2025 Erythrocyte distribution width (RBC) [Ratio] 39.5 fl 35.1-43.9 [facility] Glomerular filtration rate ( GFR) estimation/1.73 sq m using serum, plasma, or whole bOrdered By: Deacon Le on 02-12-2025 GFR/1.73 sq M.predicted among non-blacks MDRD (S/P/Bld) [Vol rate/Area] 85 mL/min/{1.73_m2} >60 [facility] Comment on above: mL/min/1.73m2 CKD-EP I Creatinine Equation (2020) Hematocrit Auto (Bld) [Volum e fraction]Ordered By: Deacon Le on 02-12-2025 Hematocrit (Bld) [Volume fraction] 33.6 % Low 37-47 [facility] Hemoglobin measurementOrdere d By: Deacon Le on 02-12-2025 Hemoglobin (Bld) [Mass/Vol] 11.6 g/dL Low 12.0-15.0 [facility] Immature granulocytes/100 WB C Auto (Bld)Ordered By: Deacon Le on 02-12-2025 Immature granulocytes/100 WBC (Bld) 0.400 % 0.0-0.9 [facility] Comment on above: IG% - Immature Granu locytes (promyelocytes, myelocytes and metamyelocytes) > 1% indicates that a LEFT SHIFT is Present. Influenza virus A and B and SARS-CoV-2 (COVID-19) and Respiratory syncytial virus RNAOrdered By: Deacon Le on 02-12-2025 SARS-CoV-2 (COVID-19) RNA JANNIE+probe Ql (Unsp spec) [facility] Ketones Test strip Ql (U)Ord ered By: Deacon Le on 02-12-2025 Ketones Ql (U) Negative Negative [facility] M100.678on 02-12-2025 M100.678 Pending SARS-CoV-2 (COVID 19) Negative INFLUENZA A Negative INFLUENZA B Negative RSV PCR Negative Normal [facility] Comment on above: Performed By: #### M 100.678, L400.0001 #### [facility] [address] [place], [address] MCV (mean corpuscular volume ) determinationOrdered By: Deacon Le on 02-12-2025 MCV (RBC) [Entitic vol] 87.7 fL 81-99 [facility] Mean corpuscular hemoglobin (MCH) determinationOrdered By: Deacon Le on 02-12-2025 MCH (RBC) [Entitic mass] 30.3 pg 27.0-32.0 [facility] Mean corpuscular hemoglobin concentration (MCHC) determinationOrdered By: Deacon Le on 02-12-2025 MCHC (RBC) [Mass/Vol] 34.5 g/dL 32-36 [facility] Mean platelet volume determi nationOrdered By: Deacon Le on 02-12-2025 Platelet mean volume (Bld) [Entitic vol] 10.0 fL 6.2-12.0 [facility] Microscopic analysis of urin e for red blood cells (RBC)Ordered By: Deacon Le on 02-12-2025 Microscopic analysis of urine for red blood cells (RBC) 0 SEEN /hpf 0-5 [facility] Monocyte percentageOrdered B y: Deacon Le on 02-12-2025 Monocytes/100 WBC (Bld) 10.0 % 0-10 [facility] Mucus LM Ql (Urine sed)Order ed By: Deacon Le on 02-12-2025 Mucus Ql (Urine sed) 0 SEEN /hpf [facility] Neutrophil percentageOrdered By: Deacon Le on 02-12-2025 Neutrophils/100 WBC (Bld) 77.9 % High 47-70 [facility] Nitrite Test strip Ql (U)Ord ered By: Deacon Le on 02-12-2025 Nitrite Ql (U) Negative Negative [facility] Nucleated red blood cell per centageOrdered By: Deacon Le on 02-12-2025 Nucleated RBC/100 WBC (Bld) [Ratio] 0 % 0-5 [facility] Platelet countOrdered By: Rob Le on 02-12-2025 Platelets (Bld) [#/Vol] 252 10*3/uL 150-450 [facility] Potassium measurement (mass/ volume)Ordered By: Deacon Le on 02-12-2025 Potassium (Unsp spec) [Mass/Vol] 3.9 mmol/L 3.3-5.1 [facility] ,Serum,hCG Quali.on 02-12-2025 HCG, SERUM QUAL Negative Normal [facility] Comment on above: Performed By: #### L 940.7054 #### [facility] [address] [place], [address] Protein Test strip Ql (U)Ord ered By: Deacon Le on 02-12-2025 Protein Ql (U) 15 mg/dl High Negative [facility] RBC Auto (Bld) [#/Vol]Ordere d By: Deacon Le on 02-12-2025 RBC (Bld) [#/Vol] 3.83 10*6/uL Low 4.2-5.4 [facility] Serum beta-hCG test, qualita tiveOrdered By: Deacon Le on 02-12-2025 Beta HCG ( test) Ql Negative [facility] Serum creatinine measurement (mass/volume)Ordered By: Deacon Le on 02-12-2025 Creatinine [Mass/Vol] 0.93 mg/dL 0.70-1.20 [facility] Serum glucose measurement (m ass/volume)Ordered By: Deacon Le on 02-12-2025 Glucose [Mass/Vol] 79 mg/dL 70-99 [facility] Serum or plasma calcium eliezer urement (mass/volume)Ordered By: Deacon Le on 02-12-2025 Calcium [Mass/Vol] 8.1 mg/dL 7.6-11.0 [facility] Serum or plasma urea nitroge n measurement (mass/volume)Ordered By: Deacon Le on 02-12-2025 Urea nitrogen [Mass/Vol] 7 mg/dL 4-19 [facility] Sodium levelOrdered By: Deacon Le on 02-12-2025 Sodium [Moles/Vol] 132 mmol/L Low 133-145 [facility] Squamous epithelial cells de tection in urine sediment by light microscopyOrdered By: Deacon Le on 02-12-2025 Epithelial cells.squamous LM Ql (Urine sed) 5-10 SEEN /hpf 5-10 [facility] Urinalysis, Completeon 02-12 EPI,SQUAMOUS 5-10 SEEN Normal - [facility] Comment on above: Order Comment: CLEAN CATCH Performed By: #### M 100.678, L400.0001 #### [facility] [address] [place], [address] WBC 0-5 SEEN Normal 0-5 [facility] Comment on above: Order Comment: CLEAN CATCH Performed By: #### M 100.678, L400.0001 #### [facility] [address] [place], [address] BACTERIA 0 SEEN Normal None Seen [facility] Comment on above: Order Comment: CLEAN CATCH Performed By: #### M 100.678, L400.0001 #### [facility] [address] [place], [address] Mucus Ql (Urine sed) 0 SEEN Normal [facility] Comment on above: Order Comment: CLEAN CATCH Performed By: #### M 100.678, L400.0001 #### [facility] [address] [place], [address] RBC 0 SEEN Normal 0-5 [facility] Comment on above: Order Comment: CLEAN CATCH Performed By: #### M 100.678, L400.0001 #### [facility] [address] [place], [address] Urine clarityOrdered By: Larisa Le on 02-12-2025 Clarity (U) Clear Clear [facility] Urine color determinationOrd ered By: Deacon Le on 02-12-2025 Color (U) Yellow Yellow [facility] Urine glucose detectionOrder ed By: Deacon Le on 02-12-2025 Glucose Ql (U) Normal mg/dl Normal [facility] Urine leukocyte esterase det ection by dipstickOrdered By: Deacon Le on 02-12-2025 Leukocyte esterase Test strip Ql (U) 25 /ul High Negative [facility] Urine pHOrdered By: Deacon menard on 02-12-2025 pH (U) 8.0 [pH] 5.0 - 8.0 [facility] Urine sediment bacteria coun t by microscopy (number/high power field)Ordered By: Deacon Le on 02-12-2025 Bacteria LM.HPF (Urine sed) [#/Area] 0 /[HPF] None Seen [facility] Urine specific gravity measu rementOrdered By: Deacon Le on 02-12-2025 Specific gravity (U) [Rel density] 1.015 1.002-1.030 [facility] Urine urobilinogen measureme ntOrdered By: Deacon Le on 02-12-2025 Urobilinogen Ql (U) Normal mg/dl Normal [facility] White blood cell (WBC) count Ordered By: Deacon Le on 02-12-2025 WBC (Bld) [#/Vol] 7.3 10*3/uL 4.4-11.0 [facility] White blood cell countOrdere d By: Deacon Le on 02-12-2025 White blood cell count 0-5 SEEN /hpf 0-5 [facility] Abdomen Single Viewon [address] [facility] Imaging Services [address] [place] [id number] Abdomen Single View MR#: [id number] Acct: [id number] Name: PENNIE KOENIG Rep #: [id number] : 1995 F 30 From: Hailey Alva nd, MD PCP: Dr. Lashawn Avila, Status: REG CLI Study: Abdomen Single View Date of Exam: 01/21/25 Exam# [id number] Ordering Dr: Brittany Rodriguez MD PROCEDURE: ABDOMEN [...] regions of the bilateral kidneys. Reading Location: [facility] CC: Dr. Brittany Rodriguez MD; Dr. 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: Signed Normal [facility] Discharge Instructionon 12-14 Discharge Instruction [facility] Medical Records Department [address] [place] [address] Instructions for Home/Discharge Instructions 01/01/25 1555 MR#: [id number] Acct: [id number] Name: PENNIE KOENIG Rep #: [id number] : 1995 29 From: Brittany Rodriguez MD PCP: Dr. Lashawn Avila DO Status:REG [facility] Discharge Instructions Diet Discharge Diet: No restrictions [...] Care Provider: Lashawn Avila Instructions Print Language: [place] Island[place] Discharge Orders/Prescription s Prescriptions: New ciprofloxacin HCl [...] can be placed): Home, Self Care 01/01/25 6478 Brittany Rodriguez MD CC: Dr. Lashawn Avila DO Signed [facility] MR/POSTOP.ANE 01-01-2025 MR/POSTOP.[facility] Medical Records Department [address] [place] [address] Anesthesia Postop Eval I 01/01/251620 MR#: [id number] Acct: [id number] Name: PENNIE KOENIG Rep #: [id number] : 1995 29 From: Chanda Estrella CRNA PCP: Dr. Lashawn Avila DO Status:REG SDC Y Race: C Location: [place] [address] Anesthesia: Postop Eval I Current Vital Signs [...] document: Postop Eval 1 completed: Yes 01/01/25 162 Date Chanda Manzanoigner Signature: Date CC: Signed [facility] MR/[id number] 01-01-2025 MR/POSTOPA[address] Medical Records Department [address] [place] [address] Anesthesia Postop Eval II 01/01/25 1634 MR#: [id number] Acct: [id number] Name: PENNIE KOENIG Rep #: [id number] : 1995 29 From: Danelle Dave PCP: Dr. 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 Vomiting No 01/01/25 16:21 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 Anesthesia Postop Eval I: Fluid Summary Crystalloid volume administer 600 01/01/25 16:21 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 (ml) Colloids volume administered ( ml) Blood Product volume administered (ml) Total IV fluid infused 600 01/01/25 16:21 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 Anesthesia Postop Eval I: Summary Notes Anesthesia Complication No 01/01/25 16:21 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 Lashawn Avila, DO Status:REG [facility] Location: [place] [address] Operative Report (Standard) Operative Information Date of Procedure: 01/01/25 Pre-Operative Diagnosis: Right renal stones, possible left distal ureteral calculus Post-Operative Diagnosis: Right renal stones, no left ureteral calculus Surgery/Procedure Performed: Left ureteroscopy, right renal extracorporeal shockwave lithotripsy administrative support manager: No Type of Anesthesia: General RN Documented [...] MD; Dr. Lashawn Avila DO Signed Normal [facility] ,Urineon 01-01-2025 Beta HCG ( test) Ql (U) Negative Normal [facility] Comment on above: Result Comment: Very dilute urine specimens, as indicated by a low specific gravity, may not contain enrollment representative levels of hCG. If is still suspected, a first morning urine specimen should be collected 48 hours later and tested. Performed By: #### L 505.5000 #### [facility] [address] [place] [place], [address] Urine testOrdered By: Lito Moralez on 01-01-2025 HCG ( test) Ql (U) Negative [facility] Comment on above: Very dilute urine sp ecimens, as indicated by a low specificgravity, may not contain enrollment representative levels of hCG. If is still suspected, a first morning urinespecimen should be collected 48 hours later and tested. Abdomen/Pelvis without Conto n 12-31-2024 Abdomen/Pelvis without Cont [facility] Imaging Services [address] [place], [place] [id number] Abdomen/Pelvis without Cont MR#: [id number] Acct: [id number] Name: PENNIE KOENIG Rep #: [id number] : 1995 F 29 From: Hang Burgess PCP: Dr. Lashawn Avila DO Status: REG ER Study: Abdomen/Pelvis without Cont Date of Exam: 12/13 07/09 Exam# [id number] Ordering Dr: Roly Zabala DO PROCEDURE: ABDOMEN/PELVIS [...] junction. 2. No significant hydronephrosis. Reading Location: [address] CC: Dr. Lashawn Avila DO; Dr. Roly Zabala DO Glass Forming Crew Member: Signed Normal [facility] Bilirubin Test strip Ql (U)O rdered By: ED PROVIDER on 12-31-2024 Bilirubin Ql (U) Negative Negative [facility] Emergency Department Summary on 12-31-2024 Emergency Department Summary [facility] Medical Records Department [address] [place] [address] Emergency Department Summary 12/31/24 MR#: [id number] Acct: [id number] Name: PENNIE KOENIG Rep #: [id number] : 1995 29 From: Roly Zabala DO [...] Rodriguez. Patient denies any recent sick contacts. [facility] Medical History Depression Kidney stones Back pain [...] 3 current occupational status: employed current occupation: [employer] pets and animals: Yes Smoking Status: Current [...] follow commands knew that she was at [facility] years 2024 Skin: Warm, dry, intact no [...] right p (more content not included)... Normal [facility] Epithelial cells.squamous LM Ql (Urine sed)Ordered By: ED PROVIDER on 12-31-2024 Epithelial cells.squamous LM.HPF (Urine sed) [#/Area] 5 /[HPF] 5-10 [facility] Glucose Ql (U)Ordered By: ED PROVIDER on 12-31-2024 Urine Glucose (UA) Normal mg/dl Normal [facility] Ketones Test strip Ql (U)Ord ered By: ED PROVIDER on 12-31-2024 Ketones Ql (U) Negative Negative [facility] Microscopic analysis of urin e for red blood cells (RBC)Ordered By: ED PROVIDER on 12-31-2024 Microscopic analysis of urine for red blood cells (RBC) 0 SEEN /hpf 0-5 [facility] Urine RBC 0 SEEN /hpf 0-5 [facility] Mucus LM Ql (Urine sed)Order ed By: ED PROVIDER on 12-31-2024 Mucus Ql (Urine sed) 0 SEEN /hpf [facility] Nitrite Test strip Ql (U)Ord ered By: ED PROVIDER on 12-31-2024 Nitrite Ql (U) Negative Negative [facility] ,Urineon 12-31-2024 Beta HCG ( test) Ql (U) Negative Normal [facility] Comment on above: Result Comment: Very dilute urine specimens, as indicated by a low specific gravity, may not contain enrollment representative levels of hCG. If is still suspected, a first morning urine specimen should be collected 48 hours later and tested. Performed By: #### M 100.678, L400.0001 #### [facility] [address] [place], [place] [address]all [facility] [place], [address] Protein Test strip Ql (U)Ord ered By: ED PROVIDER on 12-31-2024 Protein Ql (U) 15 mg/dl High Negative [facility] Squamous epithelial cells de tection in urine sediment by light microscopyOrdered By: ED PROVIDER on 12-31-2024 Epithelial cells.squamous LM Ql (Urine sed) 5-10 SEEN /hpf 5-10 [facility] Urinalysis, Completeon 12-31 EPI,SQUAMOUS 5-10 SEEN Normal 5-10 [facility] Comment on above: Order Comment: CLEAN CATCH Performed By: #### L 400.0001, L400.7600 ####[facility] [address] [place], [address] RBC 0 SEEN Normal 0-5 [facility] Comment on above: Order Comment: CLEAN CATCH Performed By: #### L 400.0001, L400.7600 ####[facility] [id number] [place], [address] WBC 0-5 SEEN Normal 0-5 [facility] Comment on above: Order Comment: CLEAN CATCH Performed By: #### L 400.0001, L400.7600 ####[facility] [address] [place], [address] BACTERIA 0 SEEN Normal None Seen [facility] Comment on above: Order Comment: CLEAN CATCH Performed By: #### L 400.0001, L400.7600 ####[facility] [address] [place], [address] Mucus Ql (Urine sed) 0 SEEN Normal [facility] Comment on above: Order Comment: CLEAN CATCH Performed By: #### L 400.0001, L400.7600 ####[facility] [address] [place], [address] Urine blood detectionOrdered By: ED PROVIDER on 12-31-2024 Urine Occult Blood Negative Negative [facility] Urine clarityOrdered By: ED PROVIDER on 12-31-2024 Clarity (U) Sl. Cloudy Clear [facility] Urine color determinationOrd ered By: ED PROVIDER on 12-31-2024 Color (U) Yellow Yellow [facility] Urine glucose detectionOrder ed By: ED PROVIDER on 12-31-2024 Glucose Ql (U) Normal mg/dl Normal [facility] Urine leukocyte esterase det ection by dipstickOrdered By: ED PROVIDER on 12-31-2024 Leukocyte esterase Test strip Ql (U) 25 /ul High Negative [facility] Urine pHOrdered By: ED PROVI DANE on 12-31-2024 pH (U) 8.0 [pH] 5.0 - 8.0 [facility] Urine testOrdered By: ED PROVIDER on 12-31-2024 HCG ( test) Ql (U) Negative [facility] Comment on above: Very dilute urine sp ecimens, as indicated by a low specificgravity, may not contain enrollment representative levels of hCG. If is still suspected, a first morning urinespecimen should be collected 48 hours later and tested. Urine sediment bacteria coun t by microscopy (number/high power field)Ordered By: ED PROVIDER on 12-31-2024 Bacteria LM.HPF (Urine sed) [#/Area] 0 /[HPF] None Seen [facility] Urine specific gravity measu rementOrdered By: ED PROVIDER on 12-31-2024 Specific gravity (U) [Rel density] 1.010 1.002-1.030 [facility] Urine urobilinogen measureme ntOrdered By: ED PROVIDER on 12-31-2024 Urobilinogen Ql (U) Normal mg/dl Normal [facility] Urobilinogen Ql (U)Ordered B y: ED PROVIDER on 12-31-2024 Urine Urobilinogen Normal mg/dl Normal [facility] White blood cell countOrdere d By: ED PROVIDER on 12-31-2024 Urine WBC 0-5 SEEN /hpf 0-5 [facility] White blood cell count 0-5 SEEN /hpf 0-5 [facility] .Auto Diffon 12-26-2024 Basophil, Absolute 0.1 10 3/mcL Normal 0.0-0.2 [facility] Comment on above: Performed By: #### U AMICAO PREGU, UA #### [place] [address] [place], [place] [address] Basophils/100 WBC (Bld) 0.9 % Normal 0.0-2.5 [facility] Comment on above: Performed By: #### U AMICAO, PREGU, UA #### [place] [address] [place], [place] [address] Eosinophil, Absolute 0.1 10 3/mcL Normal 0.0-0.7 [facility] Comment on above: Performed By: #### U AMICAO, PREGU, UA #### [address] [address] Eosinophils/100 WBC (Bld) 2.3 % Normal 0.0-7.0 [facility] Comment on above: Performed By: #### U AMICAO, PREGU, UA #### [address] [address] Lymphocyte, Absolute 1.8 10 3/mcL Normal 0.9-4.3 [facility] Comment on above: Performed By: #### U AMICAO, PREGU, UA #### [address] [address] Lymphocytes/100 WBC (Bld) 27.7 % Normal 20.0-40.0 [facility] Comment on above: Performed By: #### U AMICAO, PREGU, UA #### [address] [address] Monocyte, Absolute 0.7 10 3/mcL Normal 0.1-1.4 [facility] Comment on above: Performed By: #### U AMICAO, PREGU, UA #### [address] [address] Monocytes/100 WBC (Bld) 10.5 % Normal 2.0-13.0 [facility] Comment on above: Performed By: #### U AMICAO, PREGU, UA #### [address] [address] Neutrophils/100 WBC (Bld) 58.6 % Normal 50.0-75.0 [facility] Comment on above: Performed By: #### U AMICAO, PREGU, UA #### [address] [address] .GFRon 12-26-2024 Estimated Glomerular Filtration Rate 84 ml/min/1.73sqm Normal [facility] Comment on above: Result Comment: Stages [...] the eGFR results. Performed By: #### U AMICAO, PREGU, UA #### [place] [address] .MDWon 12-26-2024 Monocyte Distribution Width 19.24 Normal 0.00-20.00 [facility] Comment on above: Result Comment: For ED adult patients suspected of sepsis, MDW<=20.0 does not rule out sepsis or risk of sepsis Performed By: #### U AMICAO, PREGU, UA #### [place] [address] .NEUABSon 12-26-2024 Neutrophil, Absolute 3.8 10 3/mcL Normal 2.3-8.1 [facility] Comment on above: Performed By: #### U AMICAO, PREGU, UA #### [place] [address] .Urinalysis Microscopic (AO) on 12-26-2024 UA Bacteria Trace Abnormal [facility] Comment on above: Performed By: #### U AMICAO, PREGU, UA #### [place] [address] UA RBC 0-5 Abnormal None Seen [facility] Comment on above: Performed By: #### U AMICAO, PREGU, UA #### [place] [address] UA Squam Epithelial 0-5 Abnormal None Seen [facility] Comment on above: Performed By: #### U AMICAO, PREGU, UA #### [place] [address] UA WBC 0-5 Abnormal None Seen [facility] Comment on above: Performed By: #### U AMICAO, PREGU, UA #### [address] [address] BMPon 12-26-2024 BUN/Creatinine Ratio 9 ratio Normal 7-27 [facility] Comment on above: Performed By: #### U AMICAO, PREGU, UA #### [place] [id number] Calcium [Mass/Vol] 8.9 mg/dL Normal 8.4-10.2 [facility] Comment on above: Performed By: #### U AMICAO, PREGU, UA #### [place] [address] Chloride [Moles/Vol] 100 mmol/L Normal 98-107 [facility] Comment on above: Performed By: #### U AMICAO, PREGU, UA #### [place] [address] CO2 [Moles/Vol] 30 mmol/L High 22-29 [facility] Comment on above: Performed By: #### U AMICAO, PREGU, UA #### [place] [id number] Creatinine [Mass/Vol] 0.94 mg/dL Normal 0.55-1.02 [facility] Comment on above: Result Comment: Test ing performed on Siemens Dimension EXL analyzer using a modified kinetic Leah technique. Performed By: #### U AMICAO, PREGU, UA #### [address] [address] Electrolyte Balance 6.0 mEq/L Normal 4.0-15.0 [facility] Comment on above: Performed By: #### U AMICAO, PREGU, UA #### [place] [address] Glucose [Mass/Vol] 75 mg/dL Normal 70-105 [facility] Comment on above: Performed By: #### U AMICAO, PREGU, UA #### [address] [address] Potassium [Moles/Vol] 3.7 mmol/L Normal 3.5-5.1 [facility] Comment on above: Performed By: #### U AMICAO PREGU, UA #### [address] [address] Sodium [Moles/Vol] 136 mmol/L Normal 136-145 [facility] Comment on above: Performed By: #### U AMICAO, PREGU, UA #### [place] [address] Urea nitrogen [Mass/Vol] 8 mg/dL Normal 7-18 [facility] Comment on above: Performed By: #### Le AMILOLITA PREGU, UA #### [place] [address] CBCon 12-26-2024 Erythrocyte distribution width (RBC) [Ratio] 12.6 % Normal 11.5-15.5 [facility] Comment on above: Performed By: #### Le AMILOLITA PREGU, UA #### [place] [address] Hematocrit (Bld) [Volume fraction] 37.1 % Normal 34.0-46.0 [facility] Comment on above: Performed By: #### U AMICAO PREGU, UA #### [place] [place] [address] Hgb 12.8 G/dL Normal 12.0-16.0 [facility] Comment on above: Performed By: #### U AMICAO, PREGU, UA #### [place] [address] MCH (RBC) [Entitic mass] 30.4 pg Normal 27.0-33.0 [facility] Comment on above: Performed By: #### U AMICAO, PREGU, UA #### [place] [address] MCHC 34.6 G/dL Normal 32.0-36.0 [facility] Comment on above: Performed By: #### LASHONDA GOOD UA #### [address] [address] MCV (RBC) [Entitic vol] 87.8 fL Normal 80.0-99.[address] [facility] Comment on above: Performed By: #### BRITTANY GOODU, UA #### [address] [address] Platelet 318 10 3/mcL Normal 150-450 [facility] Comment on above: Performed By: #### BRITTANY GOODU UA #### [address] [address] Platelet mean volume (Bld) [Entitic vol] 8.3 fL Normal 6.6-10.5 [facility] Comment on above: Performed By: #### BRITTANY GOODU UA #### [address] [address] RBC 4.23 10 6/mcL Normal 4.10-5.30 [facility] Comment on above: Performed By: #### BRITTANY GOODU, UA #### [address] [address] WBC 6.5 10 3/mcL Normal 4.5-10.8 [facility] Comment on above: Performed By: #### BRITTANY GOODU, UA #### [address] [address] [address] ABDOMEN/PELVIS W/O CONTRA STon 12-26-2024 CT [...] stone and is scheduled for surgery at [facility]. pt states the pain was getting worse [...] 12/26/2024 9:26:35 PM Ordering Provider: DEYSI WALLER [facility] PREGUon 12-26-2024 HCG ( test) Ql (U) Negative Normal [facility] Comment on above: Performed By: #### U AMICAO, PREGU, UA #### [address] [address] test (u) int Not detected Invalid Interpretation Code [facility] Comment on above: Performed By: #### U AMICAO, PREGU, UA #### [address] [address] UAon 12-26-2024 Color (U) Yellow Normal [facility] Comment on above: Performed By: #### U AMICAO, PREGU, UA #### [address] [address] Glucose (U) [Mass/Vol] Negative Normal Negative [facility] Comment on above: Performed By: #### U AMICAO, PREGU, UA #### [address] [address] Ketones Ql (U) Negative Normal Negative [facility] Comment on above: Performed By: #### U AMICAO, PREGU, UA #### [place] [address] UA Appear Slightly Cloudy Abnormal Clear [facility] Comment on above: Performed By: #### U AMICAO, PREGU, UA #### [place] [address] UA Blood Negative Normal Negative [facility] Comment on above: Performed By: #### U AMICAO, PREGU, UA #### [place] [address] UA Leuk Est Negative Normal Negative [facility] Comment on above: Performed By: #### U AMICAO, PREGU, UA #### [place] [address] UA Nitrite Negative Normal Negative [facility] Comment on above: Performed By: #### U AMICAO, PREGU, UA #### [place] [address] UA pH 7.0 Normal 5.0 - 8.0 [facility] Comment on above: Performed By: #### U AMICAO, PREGU, UA #### [place] [address] UA Protein Negative Normal Negative [facility] Comment on above: Performed By: #### U AMICAO, PREGU, UA #### [place] [address] UA Spec Grav 1.020 Normal 1.015-1.025 [facility] Comment on above: Performed By: #### U AMICAO, PREGU, UA #### [place] [address] UA Specimen Type Void Normal [facility] Comment on above: Performed By: #### U AMICAO, PREGU, UA #### [place] [address] UA Urobilinogen 1.0 E.U./dL Normal 0.2-1.0 [facility] Comment on above: Performed By: #### U AMICAO, PREGU, UA #### [place] [address] [place], [place] [address] Urobilinogen (U) [Mass/Vol] Negative Normal Negative [facility] Comment on above: Performed By: #### U AMICAO, PREGU, UA #### [place] [address] [place], [place] [address] Urine Drug Screen (VISTA)on 12-17-2024 AMPHETAMINES Negative Normal <1000 ng/mL [facility] Comment on above: Order Comment: UNK Performed By: #### L 505.5000 #### [facility] [address] [place], [address] BARBITIURATES Negative Normal < 200 ng/mL [facility] Comment on above: Order Comment: UNK Performed By: #### L 505.5000 #### [facility] [address] [facility] [address] BENZODIAZIPINE Negative Normal < 200 ng/mL [facility] Comment on above: Order Comment: UNK Performed By: #### L 505.5000 #### [facility] [address] [place], [address] BUP Ur Drug Scr Positive Normal < 200 ng/mL [facility] Comment on above: Order Comment: UNK Result Comment: If c onfirmation testing is needed, a separate order will be required to send out testing to the reference laboratory. Performed By: #### L 505.5000 #### [facility] [address] [place], [address] COCAINE Negative Normal < 300 ng/mL [facility] Comment on above: Order Comment: UNK Performed By: #### L 505.5000 #### [facility] [address] [facility] [address] Fentanyl Negative Normal [facility] Comment on above: Order Comment: UNK Performed By: #### L 505.5000 #### [facility] [address] [place] [address] METHADONE Negative Normal < 300 ng/mL [facility] Comment on above: Order Comment: UNK Performed By: #### L 505.5000 #### [facility] [address] [place] [id number] OPIATES Negative Normal < 300 ng/mL [facility] Comment on above: Order Comment: UNK Performed By: #### L 505.5000 #### [facility] [address] [place] [address] OXYCODONE Negative Normal < 100 ng/mL [facility] Comment on above: Order Comment: UNK Performed By: #### L 505.5000 #### [facility] [address] [place] [address] PCP Negative Normal < 25 ng/mL [facility] Comment on above: Order Comment: UNK Performed By: #### L 505.5000 #### [facility] [address] [place] [address] THC Negative Normal < 50 ng/mL [facility] Comment on above: Order Comment: UNK Performed By: #### L 505.5000 #### [facility] [address] [place] [address] Amphetamine detection with 1 000 ng/mL as cutoffOrdered By: Lashawn Avila on 12-16-2024 Amphetamines Screen method >1000 ng/mL Ql (U) Negative < 200 ng/mL [facility] Amphetamines Screen method > 1000 ng/mL Ql (U)Ordered By: Lashawn Avila on 12-16-2024 Amphetamines Ql (U) Negative <1000 ng/mL [facility] Urine Barbiturates Screen Negative < 200 ng/mL [facility] Methadone, urineOrdered By: Lashawn Avila on 12-16-2024 Urine Methadone Screen Negative < 300 ng/mL [facility] No Panel InformationOrdered By: Lashawn Avila on 12-16-2024 Urine Buprenorphine Qualitative Positive < 200 ng/mL [facility] Comment on above: If confirmation test ing is needed, a separate order will be required to send out testing to the reference laboratory. Urine Oxycodone Screen Negative < 100 ng/mL [facility] Quantitative urine opiates m easurementOrdered By: Lashawn Avila on 12-16-2024 Opiates Ql (U) Negative < 300 ng/mL [facility] Screening urine fentanyl marisel surementOrdered By: Lashawn Avila on 12-16-2024 fentaNYL Screen Ql (U) Negative [facility] Urine benzodiazepine levelOr dered By: Lashawn Avila on 12-16-2024 Benzodiazepines Ql (U) Negative < 200 ng/mL [facility] Urine cocaine levelOrdered B y: Lashawn Avila on 12-16-2024 Cocaine Ql (U) Negative < 300 ng/mL [facility] Urine lzhir-8-bdrzenikdpknbf abinol (THC) measurementOrdered By: Lashawn Avila on 12-16-2024 Cannabinoids Screen Ql (U) Negative < 50 ng/mL [facility] Urine phencyclidine (PCP) de tectionOrdered By: Lashawn Avila on 12-16-2024 Phencyclidine Ql (U) Negative < 25 ng/mL [facility] fentaNYL Screen Ql (U)Ordere d By: Lashawn Avila on 12-16-2024 Urine Fentanyl Screen Negative [facility] Abdomen Single Viewon [address] [facility] [address] [place] [address] Abdomen Single View MR#: [id number] Acct: [id number] Name: PENNIE KOENIG Rep #: [id number] : 1995 F 29 From: Hang Burgess PCP: Dr. Lashawn Avila, DO Status: REG CLI Study: Abdomen Single View Date of Exam: 11/12/24 Exam# [id number] Ordering Dr: Brittany Rodriguez MD PROCEDURE: ABDOMEN [...] definite calculus is now seen. Reading Location: [id number] CC: Dr. Brittany Rodriguez MD; Dr. 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: Signed Normal [facility] Abdomen Single Viewon [address] [facility] [address] [place] [address] Abdomen Single View MR#: [id number] Acct: [id number] Name: PENNIE KOENIG Rep #: [id number] : 1995 F 29 From: Denis Garay MD PCP: Dr. Lashawn Avila DO Status: REG ER Study: Abdomen Single View Date of Exam: 10/17/24 Exam# [id number] Ordering Dr: Stevie Avilez MD -[id number] STUDY: X-RAY - ABDOMEN/PELVIS REASON FOR [...] Stevie Avilez MD; Dr. 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: Signed Normal [facility] Abdomen/Pelvis without Conto n 10-17-2024 Abdomen/Pelvis without Cont [facility] [address] [place], [place] [id number] Abdomen/Pelvis without Cont MR#: [id number] Acct: [id number] Name: PENNIE KOENIG Rep #: [id number] : 1995 F 29 From: Priti Ricks MD PCP: Dr. Lashawn Avila DO Status: REG ER Study: Abdomen/Pelvis without Cont Date of Exam: 01/06 Exam# [id number] Ordering Dr: Stevie Avilez MD [id number] INDICATION: left flank pain EXAMINATION: CT [...] Stevie Avilez MD; Dr. 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: Signed Normal [facility] Absolute neutrophil countOrd ered By: Stevie Avilez on 10-17-2024 Neutrophils (Bld) [#/Vol] 14.2 10*3/uL High 2.0-7.7 [facility] Basic Metabolic Profile (BMP )on 10-17-2024 BUN/CRE 12.1 RATIO Normal 10-20 [facility] Comment on above: Performed By: #### L 100.0100, L500.2500 #### [facility] [address] [place], [address] CA,Total 8.9 mg/dL Normal 8.5-10.1 [facility] Comment on above: Performed By: #### L 100.0100, L500.2500 #### [facility] [address] [place], [address] Chloride [Moles/Vol] 109 mmol/L High 98-107 [facility] Comment on above: Performed By: #### L 100.0100, L500.2500 #### [facility] [address] [place], [address] CO2 [Moles/Vol] 21.0 mmol/L Normal 21.0-32.0 [facility] Comment on above: Performed By: #### L 100.0100, L500.2500 #### [facility] [address] [place], [address] Creatinine [Mass/Vol] 1.07 mg/dL High 0.55-1.02 [facility] Comment on above: Result Comment: The validity of the calculated GFR GFRAA in patients over 70 years has not been determined. Clinical correlation is essential. Performed By: #### L 100.0100, L500.2500 #### [facility] [address] [place], [address] ECRCL 97.93 ml/min Normal [facility] Comment on above: Performed By: #### L 100.0100, L500.2500 #### [facility] [address] [place], [address] EST GFR - AA 78 mL/min Normal >60 [facility] Comment on above: Result Comment: Afri can Citizen [place] GFR Calc Performed By: #### L 100.0100, L500.2500 #### [facility] [address] [place], [address] GAP 8 Normal 5-15 [facility] Comment on above: Performed By: #### L 100.0100, L500.2500 #### [facility] [address] [place], [address] GFR/1.73 sq M.predicted among non-blacks MDRD (S/P/Bld) [Vol rate/Area] 64 mL/min/{1.73_m2} Normal >60 [facility] Comment on above: Result Comment: Non- GFR Calc Performed By: #### L 100.0100, L500.2500 #### [facility] [address] [place], [address] Glucose [Mass/Vol] 130 mg/dL High 74-106 [facility] Comment on above: Result Comment: Fast ing Glucose result greater than or equal to 126 mg/dL suggests DIABETES MELLITUS per A.D.A. criteria. Performed By: #### L 100.0100, L500.2500 #### [facility] [address] [place], [address] Potassium [Moles/Vol] 4.3 mmol/L Normal 3.5-5.1 [facility] Comment on above: Performed By: #### L 100.0100, L500.2500 #### [facility] [address] [place], [address] Sodium [Moles/Vol] 137 mmol/L Normal 136-145 [facility] Comment on above: Performed By: #### L 100.0100, L500.2500 #### [facility] [address] [place], [address] Urea nitrogen [Mass/Vol] 13 mg/dL Normal 7-18 [facility] Comment on above: Performed By: #### L 100.0100, L500.2500 #### [facility] [address] [place], [address] Basophil percentageOrdered B y: Stevie Avilez on 10-17-2024 Basophils/100 WBC (Bld) 0.1 % 0-1 [facility] Bilirubin Test strip Ql (U)O rdered By: Stevie Avilez on 10-17-2024 Bilirubin Ql (U) Negative Negative [facility] Blood urea nitrogen (BUN)/cr eatinine ratioOrdered By: Stevie Avilez on 10-17-2024 Urea nitrogen/Creatinine [Mass ratio] 12.1 mg/mg 10-20 [facility] CBC W/Diff, Automatedon Absolute Lymph 1.72 X10 3/uL Normal 0.83-4.51 [facility] Comment on above: Performed By: #### L 100.0100, L500.2500 #### [facility] [address] [place], [address] Absolute Neut 14.2 X10 3/uL High 2.0-7.7 [facility] Comment on above: Performed By: #### L 100.0100, L500.2500 #### [facility] [address] [place], [address] Basophils/100 WBC (Bld) 0.1 % Normal 0-1 [facility] Comment on above: Performed By: #### L 100.0100, L500.2500 #### [facility] [address] [place], [address] Eosinophils/100 WBC (Bld) 0.0 % Normal 0-5 [facility] Comment on above: Performed By: #### L 100.0100, L500.2500 #### [facility] [address] [place], [address] Erythrocyte distribution width (RBC) [Ratio] 11.9 % Normal 11.6-14.6 [facility] Comment on above: Performed By: #### L 100.0100, L500.2500 #### [facility] [address] [place], [address] Hematocrit (Bld) [Volume fraction] 37.8 % Normal 37-47 [facility] Comment on above: Performed By: #### L 100.0100, L500.2500 #### [facility] [address] [place], [address] Hemoglobin (Bld) [Mass/Vol] 12.9 g/dL Normal 12.0-15.0 [facility] Comment on above: Performed By: #### L 100.0100, L500.2500 #### [facility] [address] [place], [address] IG% 0.400 Normal 0.0-0.9 [facility] Comment on above: Result Comment: IG% - Immature Granulocytes (promyelocytes, myelocytes and metamyelocytes) > 1% indicates that a LEFT SHIFT is Present. Performed By: #### L 100.0100, L500.2500 #### [facility] [address] [place], [address] Lymphocytes/100 WBC (Bld) 10.1 % Low 19-41 [facility] Comment on above: Performed By: #### L 100.0100, L500.2500 #### [facility] [address] [place], [address] MCH (RBC) [Entitic mass] 29.5 pg Normal 27.0-32.0 [facility] Comment on above: Performed By: #### L 100.0100, L500.2500 #### [facility] [address] [place], [address] MCHC (RBC) [Mass/Vol] 34.1 g/dL Normal 32-36 [facility] Comment on above: Performed By: #### L 100.0100, L500.2500 #### [facility] [address] [place], [address] MCV (RBC) [Entitic vol] 86.5 fL Normal 81-99 [facility] Comment on above: Performed By: #### L 100.0100, L500.2500 #### [facility] [address] [place], [address] Monocytes/100 WBC (Bld) 5.9 % Normal 0-10 [facility] Comment on above: Performed By: #### L 100.0100, L500.2500 #### [facility] [address] [place], [address] Neutrophils/100 WBC (Bld) 83.5 % High 47-70 [facility] Comment on above: Performed By: #### L 100.0100, L500.2500 #### [facility] [address] [place], [address] Nucleated RBC (Bld) [#/Vol] 0 10*3/uL Normal 0-5 [facility] Comment on above: Performed By: #### L 100.0100, L500.2500 #### [facility] [address] [place], [address] Platelet mean volume (Bld) [Entitic vol] 10.0 fL Normal 6.2-12.0 [facility] Comment on above: Performed By: #### L 100.0100, L500.2500 #### [facility] [address] [place], [address] Platelets (Bld) [#/Vol] 333 10*3/uL Normal 150-450 [facility] Comment on above: Performed By: #### L 100.0100, L500.2500 #### [facility] [address] [place], [address] RBC (Bld) [#/Vol] 4.37 10*6/uL Normal 4.2-5.4 [facility] Comment on above: Performed By: #### L 100.0100, L500.2500 #### [facility] [address] [place], [address] RDW SD 37.7 fl Normal 35.1-43.9 [facility] Comment on above: Performed By: #### L 100.0100, L500.2500 #### [facility] [address] [place], [address] WBC (Bld) [#/Vol] 17.0 10*3/uL High 4.4-11.0 [facility] Comment on above: Performed By: #### L 100.0100, L500.2500 #### [facility] [address] [place], [address] Carbon dioxide measurementOr dered By: Stevie Avilez on 10-17-2024 CO2 [Moles/Vol] 21.0 mmol/L 21.0-32.0 [facility] Chloride measurementOrdered By: Stevie Avilez on 10-17-2024 Chloride [Moles/Vol] 109 mmol/L High 98-107 [facility] Emergency Department Summary on 10-17-2024 Emergency Department Summary [facility] Medical Records Department [address] [place] [address] Emergency Department Summary 10/17/24 MR#: [id number] Acct: [id number] Name: PENNIE KOENIG Rep #: [id number] : 1995 29 From: Stevie Avilez MD [...] urinate when she feels the need to. [facility] Medical History (Updated 10/17/24 @ 13:27 by [...] 3 current occupational status: employed current occupation: [employer] pets and animals: Yes Smoking Status: Current every day smoker tobacco type: cigarettes second hand exposure: No alcohol intake: current details: social- not while substance use type: does not use seatbelt use: always do you feel safe at home: Yes additional social history: Spouse: Ashon- student ([employer]- 6, Wes-11) ROS ROS ED Constitutional Constitutional ED: Denies [...] well develope (more content not included)... Normal [facility] Eosinophil percentageOrdered By: Stevie Avilez on 10-17-2024 Eosinophils/100 WBC (Bld) 0.0 % 0-5 [facility] Epithelial cells.squamous LM Ql (Urine sed)Ordered By: Stevie Avilez on 10-17-2024 Epithelial cells.squamous LM.HPF (Urine sed) [#/Area] 10 /[HPF] 5-10 [facility] Erythrocyte distribution wid th ratioOrdered By: Stevie Avilez on 10-17-2024 Erythrocyte distribution width (RBC) [Ratio] 11.9 % 11.6-14.6 [facility] Erythrocyte distribution wid th standard deviationOrdered By: Stevie Avilez on 10-17-2024 Erythrocyte distribution width (RBC) [Entitic vol] 37.7 fL 35.1-43.9 [facility] Estimated glomerular filtrat ion rate (GFR) AmericanOrdered By: Stevie Avilez on 10-17-2024 Estimated GFR (MDRD) Amer 78 mL/min >60 [facility] Comment on above: GFR Calc Estimation of creatinine fransico aranceOrdered By: Stevie Avilez on 10-17-2024 Estimated Creatinine Clearance Calc 97.93 ml/min [facility] Glomerular filtration rate ( GFR) estimationOrdered By: Stevie Avilez on 10-17-2024 Estimated GFR (MDRD) Non-Af Amer 64 mL/min >60 [facility] Comment on above: Non- GFR Calc Glucose Ql (U)Ordered By: Carissa Avilez on 10-17-2024 Urine Glucose (UA) Normal mg/dl Normal [facility] Glucose measurementOrdered B y: Stevie Avilez on 10-17-2024 Glucose [Mass/Vol] 130 mg/dL High 74-106 [facility] Comment on above: Fasting Glucose resu lt greater than or equal to 126 mg/dL suggests DIABETES MELLITUS per A.D.A. criteria. Hematocrit Auto (Bld) [Volum e fraction]Ordered By: Stevie Avilez on 10-17-2024 Hematocrit (Bld) [Volume fraction] 37.8 % 37-47 [facility] Hemoglobin measurementOrdere d By: Stevie Avilez on 10-17-2024 Hemoglobin (Bld) [Mass/Vol] 12.9 g/dL 12.0-15.0 [facility] Immature granulocytes/100 WB C Auto (Bld)Ordered By: Stevie Avilez on 10-17-2024 Immature granulocytes/100 WBC (Bld) 0.400 % 0.0-0.9 [facility] Comment on above: IG% - Immature Granu locytes (promyelocytes, myelocytes and metamyelocytes) > 1% indicates that a LEFT SHIFT is Present. Ketones Test strip Ql (U)Ord ered By: Stevie Avilez on 10-17-2024 Ketones Ql (U) Negative Negative [facility] Lymphocytes Auto (Unsp spec) [#/Vol]Ordered By: Stevie Avilez on 10-17-2024 Lymphocytes (Bld) [#/Vol] 1.72 10*3/uL 0.83-4.51 [facility] Lymphocytes/100 WBC Auto (Un sp spec)Ordered By: Stevie Avilez on 10-17-2024 Lymphocytes/100 WBC (Bld) 10.1 % Low 19-41 [facility] MCV (mean corpuscular volume ) determinationOrdered By: Stevie Avilez on 10-17-2024 MCV (RBC) [Entitic vol] 86.5 fL 81-99 [facility] Mean corpuscular hemoglobin (MCH) determinationOrdered By: Stevie Avilez on 10-17-2024 MCH (RBC) [Entitic mass] 29.5 pg 27.0-32.0 [facility] Mean corpuscular hemoglobin concentration (MCHC) determinationOrdered By: Stevie Avilez on 10-17-2024 MCHC (RBC) [Mass/Vol] 34.1 g/dL 32-36 [facility] Mean platelet volume determi nationOrdered By: Stevei Avilez on 10-17-2024 Platelet mean volume (Bld) [Entitic vol] 10.0 fL 6.2-12.0 [facility] Microscopic analysis of urin e for red blood cells (RBC)Ordered By: Stevie Avilez on 10-17-2024 Urine RBC 10-25 SEEN /hpf 0-5 [facility] Monocyte percentageOrdered B y: Stevie Avilez on 10-17-2024 Monocytes/100 WBC (Bld) 5.9 % 0-10 [facility] Mucus LM Ql (Urine sed)Order ed By: Stevie Avilez on 10-17-2024 Mucus Ql (Urine sed) 0 SEEN /hpf [facility] Neutrophil percentageOrdered By: Stevie Avilez on 10-17-2024 Neutrophils/100 WBC (Bld) 83.5 % High 47-70 [facility] Nitrite Test strip Ql (U)Ord ered By: Stevie Avilez on 10-17-2024 Nitrite Ql (U) Negative Negative [facility] Nucleated red blood cell per centageOrdered By: Stevie Avilez on 10-17-2024 Nucleated RBC/100 WBC (Bld) [Ratio] 0 % 0-5 [facility] Platelet countOrdered By: Carissa Avilez on 10-17-2024 Platelets (Bld) [#/Vol] 333 10*3/uL 150-450 [facility] Potassium measurementOrdered By: Stevie Avilez on 10-17-2024 Potassium [Moles/Vol] 4.3 mmol/L 3.5-5.1 [facility] Protein Test strip Ql (U)Ord ered By: Stevie Avilez on 10-17-2024 Protein Ql (U) 30 mg/dl High Negative [facility] RBC Auto (Bld) [#/Vol]Ordere d By: Stevie Avilez on 10-17-2024 RBC (Bld) [#/Vol] 4.37 10*6/uL 4.2-5.4 [facility] Serum anion gap measurementO rdered By: Stevie Avilez on 10-17-2024 Anion gap [Moles/Vol] 8 mmol/L 5-15 [facility] Serum or plasma calcium eliezer urement (mass/volume)Ordered By: Stevie Avilez on 10-17-2024 Calcium [Mass/Vol] 8.9 mg/dL 8.5-10.1 [facility] Serum or plasma creatinine m easurement (mass/volume)Ordered By: Stevie Avilez on 10-17-2024 Creatinine [Mass/Vol] 1.07 mg/dL High 0.55-1.02 [facility] Comment on above: The validity of the calculated GFR & GFRAA in patients over 70 years has not been determined. Clinical correlation is essential. Serum or plasma urea nitroge n measurement (mass/volume)Ordered By: Stevie Avilez on 10-17-2024 Urea nitrogen [Mass/Vol] 13 mg/dL 7-18 [facility] Sodium levelOrdered By: Denis Avilez on 10-17-2024 Sodium [Moles/Vol] 137 mmol/L 136-145 [facility] Urinalysis, Completeon 10-17 BACTERIA 1+ /hpf Normal None Seen [facility] Comment on above: Order Comment: CLEAN CATCH Performed By: #### L 400.0001 #### [facility] [address] [place], [address] RBC 10-25 SEEN Normal 0-5 [facility] Comment on above: Order Comment: CLEAN CATCH Performed By: #### L 400.0001 #### [facility] [address] [place], [address] WBC 0-5 SEEN Normal 0-5 [facility] Comment on above: Order Comment: CLEAN CATCH Performed By: #### L 400.0001 #### [facility] [address] [place], [address] EPI,SQUAMOUS 10-25 SEEN Normal 5-10 [facility] Comment on above: Order Comment: CLEAN CATCH Performed By: #### L 400.0001 #### [facility] [address] [place], [address] Mucus Ql (Urine sed) 0 SEEN Normal [facility] Comment on above: Order Comment: CLEAN CATCH Performed By: #### L 400.0001 #### [facility] [address] [place], [address] Urine blood detectionOrdered By: Stevie Avilez on 10-17-2024 Urine Occult Blood 250 /ul High Negative [facility] Urine clarityOrdered By: Ni Avilez on 10-17-2024 Clarity (U) Sl. Cloudy Clear [facility] Urine color determinationOrd ered By: Stevie Avilez on 10-17-2024 Color (U) Yellow Yellow [facility] Urine leukocyte esterase det ection by dipstickOrdered By: Stevie Avilez on 10-17-2024 Leukocyte esterase Test strip Ql (U) 25 /ul High Negative [facility] Urine pHOrdered By: Stevie Avilez on 10-17-2024 pH (U) 8.0 [pH] 5.0 - 8.0 [facility] Urine sediment bacteria coun t by microscopy (number/high power field)Ordered By: Stevie Avilez on 10-17-2024 Bacteria LM.HPF (Urine sed) [#/Area] 1 /[HPF] None Seen [facility] Urine specific gravity measu rementOrdered By: Stevie Avilez on 10-17-2024 Specific gravity (U) [Rel density] 1.010 1.002-1.030 [facility] Urobilinogen Ql (U)Ordered B y: Stevie Avilez on 10-17-2024 Urine Urobilinogen Normal mg/dl Normal [facility] White blood cell (WBC) count Ordered By: Stevie Avilez on 10-17-2024 WBC (Bld) [#/Vol] 17.0 10*3/uL High 4.4-11.0 [facility] White blood cell countOrdere d By: Stevie Avilez on 10-17-2024 Urine WBC 0-5 SEEN /hpf 0-5 [facility] Discharge Instructionon Discharge Instruction [facility] Medical Records Department [address] [place] [address] Instructions for Home/Discharge Instructions 10/16/24 1019 MR#: [id number] Acct: [id number] Name: PENNIE KOENIG Rep #: [id number] : 1995 29 From: Brittany Rodriguez MD [...] MD CC: Dr. Lashawn Avila DO Signed [facility] MR/POSTOP.[facility] 10-16-2024 MR/POSTOP.[facility] Medical Records Department [address] [place] [address] Anesthesia Postop Eval I 10/16/24 1216 MR#: [id number] Acct: [id number] Name: PENNIE KOENIG Rep #: [id number] : 1995 29 From: Srini Szymanski PCP: Dr. Lashawn Avila DO Status:ADM CHRISTIAN Y Race: C Location: ND3 [id number] Anesthesia: Postop Eval I Current Vital Signs [...] Srini Zayas Signature: Date CC: Signed Normal [facility] MR/[id number] 10-16-2024 MR/POSTOPAN2 [facility] Medical Records Department [address] [place] [address] Anesthesia Postop Eval II 10/16/24 1501 MR#: [id number] Acct: [id number] Name: PENNIE KOENIG Rep #: [id number] : 1995 29 From: Lito Moralez MD PCP: Dr. 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 Spontaneous unlabored Yes 10/16/24 12:16 STORAGE BATTERY INSPECTOR.MDOT respirations Mental status Awake,Calm 10/16/24 12:16 STORAGE BATTERY INSPECTOR.MDOT nausea No 10/16/24 12:16 STORAGE BATTERY INSPECTOR.MDOT Vomiting No 10/16/24 12:16 STORAGE BATTERY INSPECTOR.MDOT Anesthesia Postop Eval I: Fluid Summary Crystalloid volume administer 700 10/16/24 12:16 STORAGE BATTERY INSPECTOR.MDOT (ml) Colloids volume administered ( ml) Blood Product volume administered (ml) Total IV fluid infused 700 10/16/24 12:16 STORAGE BATTERY INSPECTOR.MDOT Anesthesia Postop Eval I: Summary Notes Anesthesia Complication No 10/16/24 12:16 STORAGE BATTERY INSPECTOR.MDOT Anesthesia Complication Comment: Post-operative progress note Anesthesia: Postop Eval II Evaluation Mental status: Awake and Calm Pain Level: 3 nausea: No Vomiting: No Complications Anesthesia Complication: No 10/16/24 1502 Date Lito Zayas Signature: Date CC: Signed Normal [facility] MR/POSTOPAN2 [facility] Medical Records Department [address] [place] [address] Anesthesia Postop Eval II 10/16/24 1216 MR#: [id number] Acct: [id number] Name: PENNIE KEONIG Rep #: [id number] : 1995 29 From: Srini Szymanski PCP: Dr. Lashawn Avila, DO Status:ADM CHRISTIAN Y Race: C Location: [place] [address] Anesthesia Postop Eval I Sum Postop Eval Completion status Anesthesia document: Postop Eval 1 completed: Yes Anesthesia Postop Eval I Summary Anesthesia Postop Eval I Summary: Anesthesia Postop Eval I: Assessment Summary Airway patent Yes 10/16/24 12:16 STORAGE BATTERY INSPECTOR.MDOT Spontaneous unlabored Yes 10/16/24 12:16 STORAGE BATTERY INSPECTOR.MDOT respirations Mental status Awake 10/16/24 12:16 STORAGE BATTERY INSPECTOR.MDOT nausea No 10/16/24 12:16 STORAGE BATTERY INSPECTOR.MDOT Vomiting No 10/16/24 12:16 STORAGE BATTERY INSPECTOR.MDOT Anesthesia Postop Eval I: Fluid Summary Crystalloid volume administer 700 10/16/24 12:16 STORAGE BATTERY INSPECTOR.MDOT (ml) Colloids volume administered ( ml) Blood Product volume administered (ml) Total IV fluid infused 700 10/16/24 12:16 STORAGE BATTERY INSPECTOR.MDOT Anesthesia Postop Eval I: Summary Notes Anesthesia Complication No 10/16/24 12:16 STORAGE BATTERY INSPECTOR.MDOT Anesthesia Complication Comment: Post-operative progress note Anesthesia: Postop Eval II Evaluation Mental status: Awake and Calm Pain Level: 3 nausea: No Vomiting: No Complications Anesthesia Complication: No 10/16/24 1217 Date Srini Zayas Signature: Date CC: Signed Normal [facility] Operative Reporton 5 Operative Report [facility] Medical Records Department [address] [place] [address] Operative Report 10/16/24 1138 MR#: [id number] Acct: [id number] Name: PENNIE KOENIG Rep #: [id number] : 1995 29 From: Brittany Rodriguez MD PCP: Dr. Lashawn Avila, DO Status:ADM CHRISTIAN Location: [address] Operative Report (Standard) Operative Information Date of Procedure: 10/16/24 Pre-Operative Diagnosis: Left renal stone, urinary tract infections Post-Operative Diagnosis: Same Surgery/Procedure Performed: Cystoscopy, left renal extracorporeal shockwave lithotripsy administrative support manager: No Type of Anesthesia: General RN Documented [...] MD; Dr. Lashawn Avila DO Signed Normal [facility] Absolute neutrophil countOrd ered By: Deacon Le on 10-15-2024 Neutrophils (Bld) [#/Vol] 3.7 10*3/uL 2.0-7.7 [facility] Bacteria LM.HPF (Urine sed) [#/Area]Ordered By: ED PROVIDER on 10-15-2024 Urine Bacteria RARE /hpf None Seen [facility] Basic Metabolic Profile (BMP )on 10-15-2024 BUN/CRE 12.3 RATIO Normal 10-20 [facility] Comment on above: Performed By: #### L 100.0100, L500.2500 ####[facility] [address] [place], [address] CA,Total 9.0 mg/dL Normal 8.5-10.1 [facility] Comment on above: Performed By: #### L 100.0100, L500.2500 ####[facility] [address] [place], [address] Chloride [Moles/Vol] 103 mmol/L Normal 98-107 [facility] Comment on above: Performed By: #### L 100.0100, L500.2500 ####[facility] [address] [place], [address] CO2 [Moles/Vol] 29.0 mmol/L Normal 21.0-32.0 [facility] Comment on above: Performed By: #### L 100.0100, L500.2500 ####[facility] [address] [place], [address] Creatinine [Mass/Vol] 0.90 mg/dL Normal 0.55-1.02 [facility] Comment on above: Result Comment: The validity of the calculated GFR GFRAA in patients over 70 years has not been determined. Clinical correlation is essential. Performed By: #### L 100.0100, L500.2500 ####[facility] [address] [place], [address] ECRCL 113.94 ml/min Normal [facility] Comment on above: Performed By: #### L 100.0100, L500.2500 ####[facility] [address] [place], [address] EST GFR - AA 95 mL/min Normal >60 [facility] Comment on above: Result Comment: Afri can Citizen [place] GFR Calc Performed By: #### L 100.0100, L500.2500 ####[facility] [address] [place], [address] GAP 6 Normal 5-15 [facility] Comment on above: Performed By: #### L 100.0100, L500.2500 ####[facility] [address] [place], [address] GFR/1.73 sq M.predicted among non-blacks MDRD (S/P/Bld) [Vol rate/Area] 79 mL/min/{1.73_m2} Normal >60 [facility] Comment on above: Result Comment: Non- GFR Calc Performed By: #### L 100.0100, L500.2500 ####[facility] [address] [place], [address] Glucose [Mass/Vol] 87 mg/dL Normal 74-106 [facility] Comment on above: Performed By: #### L 100.0100, L500.2500 ####[facility] [address] [place], [address] Potassium [Moles/Vol] 3.8 mmol/L Normal 3.5-5.1 [facility] Comment on above: Performed By: #### L 100.0100, L500.2500 ####[facility] [address] [place], [address] Sodium [Moles/Vol] 138 mmol/L Normal 136-145 [facility] Comment on above: Performed By: #### L 100.0100, L500.2500 ####[facility] [address] [place], [address] Urea nitrogen [Mass/Vol] 11 mg/dL Normal 7-18 [facility] Comment on above: Performed By: #### L 100.0100, L500.2500 ####[facility] [address] [place], [address] Basophil percentageOrdered B y: Deacon Le on 10-15-2024 Basophils/100 WBC (Bld) 0.3 % 0-1 [facility] Bilirubin Test strip Ql (U)O rdered By: ED PROVIDER on 10-15-2024 Bilirubin Ql (U) Negative Negative [facility] Blood urea nitrogen (BUN)/cr eatinine ratioOrdered By: Deacon Le on 10-15-2024 Urea nitrogen/Creatinine [Mass ratio] 12.3 mg/mg 10-20 [facility] CBC W/Diff, Automatedon Absolute Lymph 2.24 X10 3/uL Normal 0.83-4.51 [facility] Comment on above: Performed By: #### L 100.0100, L500.2500 #### [facility] [address] [place], [address] Absolute Neut 3.7 X10 3/uL Normal 2.0-7.7 [facility] Comment on above: Performed By: #### L 100.0100, L500.2500 #### [facility] [address] [place], [address] Basophils/100 WBC (Bld) 0.3 % Normal 0-1 [facility] Comment on above: Performed By: #### L 100.0100, L500.2500 #### [facility] [address] [place], [address] Eosinophils/100 WBC (Bld) 1.5 % Normal 0-5 [facility] Comment on above: Performed By: #### L 100.0100, L500.2500 #### [facility] [address] [place], [address] Erythrocyte distribution width (RBC) [Ratio] 11.7 % Normal 11.6-14.6 [facility] Comment on above: Performed By: #### L 100.0100, L500.2500 #### [facility] [address] [place], [address] Hematocrit (Bld) [Volume fraction] 37.9 % Normal 37-47 [facility] Comment on above: Performed By: #### L 100.0100, L500.2500 #### [facility] [address] [place], [address] Hemoglobin (Bld) [Mass/Vol] 13.1 g/dL Normal 12.0-15.0 [facility] Comment on above: Performed By: #### L 100.0100, L500.2500 #### [facility] [address] [place], [address] IG% 0.300 Normal 0.0-0.9 [facility] Comment on above: Result Comment: IG% - Immature Granulocytes (promyelocytes, myelocytes and metamyelocytes) > 1% indicates that a LEFT SHIFT is Present. Performed By: #### L 100.0100, L500.2500 #### [facility] [address] [place], [address] Lymphocytes/100 WBC (Bld) 32.7 % Normal 19-41 [facility] Comment on above: Performed By: #### L 100.0100, L500.2500 #### [facility] [address] [place], [address] MCH (RBC) [Entitic mass] 30.0 pg Normal 27.0-32.0 [facility] Comment on above: Performed By: #### L 100.0100, L500.2500 #### [facility] [address] [place], [address] MCHC (RBC) [Mass/Vol] 34.6 g/dL Normal 32-36 [facility] Comment on above: Performed By: #### L 100.0100, L500.2500 #### [facility] [address] [place], [address] MCV (RBC) [Entitic vol] 86.9 fL Normal 81-99 [facility] Comment on above: Performed By: #### L 100.0100, L500.2500 #### [facility] [address] [place], [address] Monocytes/100 WBC (Bld) 11.4 % High 0-10 [facility] Comment on above: Performed By: #### L 100.0100, L500.2500 #### [facility] [address] [place], [address] Neutrophils/100 WBC (Bld) 53.8 % Normal 47-70 [facility] Comment on above: Performed By: #### L 100.0100, L500.2500 #### [facility] [address] [place], [address] Nucleated RBC (Bld) [#/Vol] 0 10*3/uL Normal 0-5 [facility] Comment on above: Performed By: #### L 100.0100, L500.2500 #### [facility] [address] [place], [address] Platelet mean volume (Bld) [Entitic vol] 10.0 fL Normal 6.2-12.0 [facility] Comment on above: Performed By: #### L 100.0100, L500.2500 #### [facility] [address] [place], [address] Platelets (Bld) [#/Vol] 317 10*3/uL Normal 150-450 [facility] Comment on above: Performed By: #### L 100.0100, L500.2500 #### [facility] [address] [place], [address] RBC (Bld) [#/Vol] 4.36 10*6/uL Normal 4.2-5.4 [facility] Comment on above: Performed By: #### L 100.0100, L500.2500 #### [facility] [address] [place], [address] RDW SD 37.4 fl Normal 35.1-43.9 [facility] Comment on above: Performed By: #### L 100.0100, L500.2500 #### [facility] [address] [place], [address] WBC (Bld) [#/Vol] 6.9 10*3/uL Normal 4.4-11.0 [facility] Comment on above: Performed By: #### L 100.0100, L500.2500 #### [facility] [address] [place], [address] Carbon dioxide measurementOr dered By: Deacon Le on 10-15-2024 CO2 [Moles/Vol] 29.0 mmol/L 21.0-32.0 [facility] Chloride measurementOrdered By: Deacon Le on 10-15-2024 Chloride [Moles/Vol] 103 mmol/L 98-107 [facility] Emergency Department Summary on 10-15-2024 Emergency Department Summary [facility] Medical Records Department [address] [place] [address] Emergency Department Summary 10/15/24 MR#: [id number] Acct: [id number] Name: PENNIE KOENIG Rep #: [id number] : 1995 29 From: Deacon Le MD [...] currently being treated for urinary tract infection. [facility] Medical History Depression Kidney stones Back pain [...] 3 current occupational status: employed current occupation: [employer] pets and animals: Yes Smoking Status: Current every day smoker tobacco type: cigarettes second hand exposure: No alcohol intake: current details: social- not while substance use type: does not use seatbelt use: always do you feel safe at home: Yes additional social history: Spouse: Ashon- student ([employer]- 6, [employer]-11) ROS ROS ED ROS Narrative Constitutional: No [...] diagnosis inc (more content not included)... Normal [facility] Eosinophil percentageOrdered By: Deacon Le on 10-15-2024 Eosinophils/100 WBC (Bld) 1.5 % 0-5 [facility] Epithelial cells.squamous LM Ql (Urine sed)Ordered By: ED PROVIDER on 10-15-2024 Epithelial cells.squamous LM.HPF (Urine sed) [#/Area] 0 /[HPF] 5-10 [facility] Erythrocyte distribution wid th ratioOrdered By: Deacon Le on 10-15-2024 Erythrocyte distribution width (RBC) [Ratio] 11.7 % 11.6-14.6 [facility] Erythrocyte distribution wid th standard deviationOrdered By: Deacon Le on 10-15-2024 Erythrocyte distribution width (RBC) [Entitic vol] 37.4 fL 35.1-43.9 [facility] Estimated glomerular filtrat ion rate (GFR) AmericanOrdered By: Deacon Le on 10-15-2024 Estimated GFR (MDRD) Amer 95 mL/min >60 [facility] Comment on above: GFR Calc Estimation of creatinine fransico aranceOrdered By: Deacon Le on 10-15-2024 Estimated Creatinine Clearance Calc 113.94 ml/min [facility] Glomerular filtration rate ( GFR) estimationOrdered By: Deacon Le on 10-15-2024 Estimated GFR (MDRD) Non-Af Amer 79 mL/min >60 [facility] Comment on above: Non- GFR Calc Glucose Ql (U)Ordered By: ED PROVIDER on 10-15-2024 Urine Glucose (UA) Normal mg/dl Normal [facility] Glucose measurementOrdered B y: Deacon Le on 10-15-2024 Glucose [Mass/Vol] 87 mg/dL 74-106 [facility] Hematocrit Auto (Bld) [Volum e fraction]Ordered By: Deacon Le on 10-15-2024 Hematocrit (Bld) [Volume fraction] 37.9 % 37-47 [facility] Hemoglobin measurementOrdere d By: Deacon Le on 10-15-2024 Hemoglobin (Bld) [Mass/Vol] 13.1 g/dL 12.0-15.0 [facility] Immature granulocytes/100 WB C Auto (Bld)Ordered By: Deacon Le on 10-15-2024 Immature granulocytes/100 WBC (Bld) 0.300 % 0.0-0.9 [facility] Comment on above: IG% - Immature Granu locytes (promyelocytes, myelocytes and metamyelocytes) > 1% indicates that a LEFT SHIFT is Present. Ketones Test strip Ql (U)Ord ered By: ED PROVIDER on 10-15-2024 Ketones Ql (U) Negative Negative [facility] Lymphocytes Auto (Unsp spec) [#/Vol]Ordered By: Deacon Le on 10-15-2024 Lymphocytes (Bld) [#/Vol] 2.24 10*3/uL 0.83-4.51 [facility] Lymphocytes/100 WBC Auto (Un sp spec)Ordered By: Deacon Le on 10-15-2024 Lymphocytes/100 WBC (Bld) 32.7 % 19-41 [facility] MCV (mean corpuscular volume ) determinationOrdered By: Deacon Le on 10-15-2024 MCV (RBC) [Entitic vol] 86.9 fL 81-99 [facility] Mean corpuscular hemoglobin (MCH) determinationOrdered By: Deacon Le on 10-15-2024 MCH (RBC) [Entitic mass] 30.0 pg 27.0-32.0 [facility] Mean corpuscular hemoglobin concentration (MCHC) determinationOrdered By: Deacon Le on 10-15-2024 MCHC (RBC) [Mass/Vol] 34.6 g/dL 32-36 [facility] Mean platelet volume determi nationOrdered By: Deacon Le on 10-15-2024 Platelet mean volume (Bld) [Entitic vol] 10.0 fL 6.2-12.0 [facility] Microscopic analysis of urin e for red blood cells (RBC)Ordered By: ED PROVIDER on 10-15-2024 Urine RBC 0 SEEN /hpf 0-5 [facility] Monocyte percentageOrdered B y: Deacon Le on 10-15-2024 Monocytes/100 WBC (Bld) 11.4 % High 0-10 [facility] Mucus LM Ql (Urine sed)Order ed By: ED PROVIDER on 10-15-2024 Mucus Ql (Urine sed) 0 SEEN /hpf [facility] Neutrophil percentageOrdered By: Deacon Le on 10-15-2024 Neutrophils/100 WBC (Bld) 53.8 % 47-70 [facility] Nitrite Test strip Ql (U)Ord ered By: ED PROVIDER on 10-15-2024 Nitrite Ql (U) Negative Negative [facility] Nucleated red blood cell per centageOrdered By: Deacon Le on 10-15-2024 Nucleated RBC/100 WBC (Bld) [Ratio] 0 % 0-5 [facility] Platelet countOrdered By: Rob Le on 10-15-2024 Platelets (Bld) [#/Vol] 317 10*3/uL 150-450 [facility] Potassium measurementOrdered By: Deacon Le on 10-15-2024 Potassium [Moles/Vol] 3.8 mmol/L 3.5-5.1 [facility] Protein Test strip Ql (U)Ord ered By: ED PROVIDER on 10-15-2024 Protein Ql (U) Negative Negative [facility] RBC Auto (Bld) [#/Vol]Ordere d By: Deacon Le on 10-15-2024 RBC (Bld) [#/Vol] 4.36 10*6/uL 4.2-5.4 [facility] Serum anion gap measurementO rdered By: Deacon Le on 10-15-2024 Anion gap [Moles/Vol] 6 mmol/L 5-15 [facility] Serum or plasma calcium eliezer urement (mass/volume)Ordered By: Deacon Le on 10-15-2024 Calcium [Mass/Vol] 9.0 mg/dL 8.5-10.1 [facility] Serum or plasma creatinine m easurement (mass/volume)Ordered By: Deacon Le on 10-15-2024 Creatinine [Mass/Vol] 0.90 mg/dL 0.55-1.02 [facility] Comment on above: The validity of the calculated GFR & GFRAA in patients over 70 years has not been determined. Clinical correlation is essential. Serum or plasma urea nitroge n measurement (mass/volume)Ordered By: Deacon Le on 10-15-2024 Urea nitrogen [Mass/Vol] 11 mg/dL 7-18 [facility] Sodium levelOrdered By: Deacon Le on 10-15-2024 Sodium [Moles/Vol] 138 mmol/L 136-145 [facility] Urinalysis, Completeon 10-15 BACTERIA RARE Normal None Seen [facility] Comment on above: Order Comment: UNK Performed By: #### L 505.5000 #### [facility] [address] [place], [address] EPI,SQUAMOUS 0-5 SEEN Normal 5-10 [facility] Comment on above: Order Comment: UNK Performed By: #### L 505.5000 #### [facility] [address] [place], [address] Mucus Ql (Urine sed) 0 SEEN Normal [facility] Comment on above: Order Comment: UNK Performed By: #### L 505.5000 #### [facility] [address] [place], [address] RBC 0 SEEN Normal 0-5 [facility] Comment on above: Order Comment: UNK Performed By: #### L 505.5000 #### [facility] [address] [place], [address] WBC 0 SEEN Normal 0-5 [facility] Comment on above: Order Comment: UNK Performed By: #### L 505.5000 #### [facility] [address] [place], [address] Urine blood detectionOrdered By: ED PROVIDER on 10-15-2024 Urine Occult Blood Negative Negative [facility] Urine clarityOrdered By: ED PROVIDER on 10-15-2024 Clarity (U) Clear Clear [facility] Urine color determinationOrd ered By: ED PROVIDER on 10-15-2024 Color (U) Yellow Yellow [facility] Urine leukocyte esterase det ection by dipstickOrdered By: ED PROVIDER on 10-15-2024 Leukocyte esterase Test strip Ql (U) Negative Negative [facility] Urine pHOrdered By: ED PROVI DANE on 10-15-2024 pH (U) 6.0 [pH] 5.0 - 8.0 [facility] Urine specific gravity measu rementOrdered By: ED PROVIDER on 10-15-2024 Specific gravity (U) [Rel density] 1.015 1.002-1.030 [facility] Urobilinogen Ql (U)Ordered B y: ED PROVIDER on 10-15-2024 Urine Urobilinogen Normal mg/dl Normal [facility] White blood cell (WBC) count Ordered By: Deacon Le on 10-15-2024 WBC (Bld) [#/Vol] 6.9 10*3/uL 4.4-11.0 [facility] White blood cell countOrdere d By: ED PROVIDER on 10-15-2024 Urine WBC 0 SEEN /hpf 0-[address] [facility] [address] ABDOMEN/PELVIS W/O CONTRA STon 10-12-2024 CT ABDOMEN/PELVIS W/O CONTRAST ORIGINAL EXAMINATION: CT OF THE ABDOMEN AND PELVIS WITHOUT ICBCQRUD58/28/2024 11:43 pm TECHNIQUE: CT of the abdomen [...] 10/12/2024 12:17:04 AM Ordering Provider: SANDEE Wing [facility] .Auto Diffon 10-11-2024 Basophil, Absolute 0.1 10 3/mcL Normal 0.0-0.2 [facility] Comment on above: Performed By: #### A OMER, CBC, GFR, BMP, NEREIDA LEWIS #### [address] [address] Basophils/100 WBC (Bld) 0.8 % Normal 0.0-2.5 [facility] Comment on above: Performed By: #### A OMER, CBC, GFR, BMP, NEREIDA LEWIS #### [place] [address] [place], [place] [address] Eosinophil, Absolute 0.1 10 3/mcL Normal 0.0-0.7 [facility] Comment on above: Performed By: #### A OMER, CBC, GFR, BMP, ADNEREIDA HERNANDEZ #### [address] [address] Eosinophils/100 WBC (Bld) 2.0 % Normal 0.0-7.0 [facility] Comment on above: Performed By: #### A OMER, CBC, GFR, BMP, ADNEREIDA HERNANDEZ #### [address] [address] Lymphocyte, Absolute 2.1 10 3/mcL Normal 0.9-4.3 [facility] Comment on above: Performed By: #### A OMER, CBC, GFR, BMP, ADNEREIDA HERNANDEZ #### [address] [address] Lymphocytes/100 WBC (Bld) 30.1 % Normal 20.0-40.0 [facility] Comment on above: Performed By: #### A OMER, CBC, GFR, BMP, ADNEREIDA HERNANDEZ #### [address] [address] Monocyte, Absolute 0.7 10 3/mcL Normal 0.1-1.4 [facility] Comment on above: Performed By: #### A OMER, CBC, GFR, BMP, ADNEREIDA HERNANDEZ #### [address] [address] Monocytes/100 WBC (Bld) 9.6 % Normal 2.0-13.0 [facility] Comment on above: Performed By: #### A OMER, CBC, GFR, BMP, ADNEREIDA HERNANDEZ #### [address] [address] Neutrophils/100 WBC (Bld) 57.5 % Normal 50.0-75.0 [facility] Comment on above: Performed By: #### A OMER, CBC, GFR, BMP, ADDAVID, NEREIDA #### [address] [address] .GFRon 10-11-2024 GFR 101 ml/min/1.73sqm Normal [facility] Comment on above: Result Comment: GFR [...] OMER, CBC, GFR, BMP, ADNEREIDA HERNANDEZ #### [address] [address] GFR Non- 84 ml/min/1.73sqm Normal [facility] Comment on above: Result Comment: GFR [...] OMER, CBC, GFR, BMP, NEREIDA LEWIS #### [address] [address] .NEREIDAon 10-11-2024 Monocyte Distribution Width 17.62 Normal 0.00-20.00 [facility] Comment on above: Result Comment: For ED adult patients suspected of sepsis, MDW<=20.0 does not rule out sepsis or risk of sepsis Performed By: #### A OMER, CBC, GFR, BMP, NEREIDA LEWIS #### [address] [address] .NEUABSon 10-11-2024 Neutrophil, Absolute 3.9 10 3/mcL Normal 2.3-8.1 [facility] Comment on above: Performed By: #### A OMER, CBC, GFR, BMP, NEREIDA LEWIS #### [address] [address] .Urinalysis Microscopic (AO) on 10-11-2024 UA Bacteria Trace Abnormal [facility] Comment on above: Performed By: #### U AMICAO, PREGU, UA #### [place] [address] UA RBC 0-5 Abnormal None Seen [facility] Comment on above: Performed By: #### U AMICAO, PREGU, UA #### [place] [address] UA Squam Epithelial 15-25 Abnormal None Seen [facility] Comment on above: Performed By: #### U AMICAO, PREGU, UA #### [address] [address] UA WBC 15-25 Abnormal None Seen [facility] Comment on above: Performed By: #### U AMICAO, PREGU, UA #### [address] [address] BMPon 10-11-2024 BUN/Creatinine Ratio 16 ratio Normal 7-27 [facility] Comment on above: Performed By: #### A OMER, CBC, GFR, BMP, NEREIDA LEWIS #### [address] [address] Calcium [Mass/Vol] 8.8 mg/dL Normal 8.4-10.2 [facility] Comment on above: Performed By: #### A OMER, CBC, GFR, BMP, NEREIDA LEWIS #### [place] [address] Chloride [Moles/Vol] 103 mmol/L Normal 98-107 [facility] Comment on above: Performed By: #### A OMER, CBC, GFR, BMPDEBBIE MDW #### [address] [address] CO2 [Moles/Vol] 30 mmol/L High 22-29 [facility] Comment on above: Performed By: #### A OMER, CBC, GFR, BMP, NEREIDA LEWIS #### [address] [address] Creatinine [Mass/Vol] 0.81 mg/dL Normal 0.55-1.02 [facility] Comment on above: Result Comment: Test ing performed on Slack Dimension EXL analyzer using a modified kinetic Leah technique. Performed By: #### A OMER, CBC, GFR, BMP, NEREIDA LEWIS #### [address] [address] Electrolyte Balance 6.0 mEq/L Normal 4.0-15.0 [facility] Comment on above: Performed By: #### A OMER, CBC, GFR, DEBBIE DAUGHERTY MDW #### [address] [address] Glucose [Mass/Vol] 94 mg/dL Normal 70-105 [facility] Comment on above: Performed By: #### A OMER, CBC, GFR, DEBBIE DAUGHERTY MDW #### [address] [address] Potassium [Moles/Vol] 4.2 mmol/L Normal 3.5-5.1 [facility] Comment on above: Performed By: #### A OMER, CBC, GFR, BMP, NEREIDA LEWIS #### [address] [address] Sodium [Moles/Vol] 139 mmol/L Normal 136-145 [facility] Comment on above: Performed By: #### A OMER, CBC, GFR, BMP, NEREIDA LEWIS #### [address] [address] Urea nitrogen [Mass/Vol] 13 mg/dL Normal 7-18 [facility] Comment on above: Performed By: #### A OMER, CBC, GFR, DEBBIE DAUGHERTY MDW #### [address] [address] CBCon 10-11-2024 Erythrocyte distribution width (RBC) [Ratio] 12.7 % Normal 11.5-15.5 [facility] Comment on above: Performed By: #### A OMER, CBC, GFR, BMP, NEREIDA LEWIS #### [place] [address] Hematocrit (Bld) [Volume fraction] 37.7 % Normal 34.0-46.0 [facility] Comment on above: Performed By: #### A OMER, CBC, GFR, BMPDEBBIE MDW #### [place] [address] Hgb 13.0 G/dL Normal 12.0-16.0 [facility] Comment on above: Performed By: #### A OMER, CBC, GFR, DEBBIE DAUGHERTY MDW #### [address] [address] MCH (RBC) [Entitic mass] 30.4 pg Normal 27.0-33.0 [facility] Comment on above: Performed By: #### A OMER, CBC, GFR, BMP, NEREIDA LEWIS #### [place] [address] MCHC 34.5 G/dL Normal 32.0-36.0 [facility] Comment on above: Performed By: #### A OMER, CBC, GFR, BMP, NEREIDA LEWIS #### [place] [address] MCV (RBC) [Entitic vol] 88.2 fL Normal 80.0-99.0 [facility] Comment on above: Performed By: #### A OMER, CBC, GFR, BMP, NEREIDA LEWIS #### [place] [address] Platelet 286 10 3/mcL Normal 150-450 [facility] Comment on above: Performed By: #### A OMER, CBC, GFR, DEBBIE DAUGHERTY MDW #### [address] [address] Platelet mean volume (Bld) [Entitic vol] 8.1 fL Normal 6.6-10.5 [facility] Comment on above: Performed By: #### A OMER, CBC, GFR, DEBBIE DAUGHERTY MDW #### [place] [address] [place], [place] [address] RBC 4.27 10 6/mcL Normal 4.10-5.30 [facility] Comment on above: Performed By: #### A OMER, CBC, GFR, DEBBIE DAUGHERTY MDW #### [place] [address] [place], [place] [address] WBC 6.8 10 3/mcL Normal 4.5-10.8 [facility] Comment on above: Performed By: #### A OMER, CBC, GFR, DEBBIE DAUGHERTY MDW #### [address] [address] LABORATORYOrdered By: SYSTEM SYSTEM on 10-11-2024 Basophils [...] 10^3/mcL AO Workflow SS LABORATORYOrdered By: Ines francis Esparza on 10-11-2024 Appearance (U) Cloudy *ABN* [...] HCG ( test) Ql (U) Negative Normal [facility] Comment on above: Performed By: #### U AMICAO, PREGU, UA #### [address] [address] test (u) int Not detected Invalid Interpretation Code [facility] Comment on above: Performed By: #### U AMICAO, PREGU, UA #### [address] [address] UAon 10-11-2024 Color (U) Yellow Normal [facility] Comment on above: Performed By: #### U AMICAO, PREGU, UA #### [address] [address] Glucose (U) [Mass/Vol] Negative Normal Negative [facility] Comment on above: Performed By: #### U AMICAO, PREGU, UA #### [place] [address] Ketones Ql (U) Negative Normal Negative [facility] Comment on above: Performed By: #### U AMICAO, PREGU, UA #### [address] [address] UA Appear Cloudy Abnormal Clear [facility] Comment on above: Performed By: #### U AMICAO, PREGU, UA #### [address] [address] UA Blood Negative Normal Negative [facility] Comment on above: Performed By: #### U AMICAO, PREGU, UA #### [address] [address] UA Leuk Est Small Abnormal Negative [facility] Comment on above: Performed By: #### U AMICAO, PREGU, UA #### [address] [address] UA Nitrite Negative Normal Negative [facility] Comment on above: Performed By: #### U AMICAO, PREGU, UA #### [address] [address] UA pH 8.0 Normal 5.0 - 8.0 [facility] Comment on above: Performed By: #### U AMICAO, PREGU, UA #### [address] [address] UA Protein Negative Normal Negative [facility] Comment on above: Performed By: #### U AMICAO, PREGU, UA #### [place] [address] [place], [place] [address] UA Spec Grav 1.020 Normal 1.015-1.025 [facility] Comment on above: Performed By: #### U AMICAO, PREGU, UA #### [address] [address] UA Specimen Type Clean Catch Normal [facility] Comment on above: Performed By: #### U AMICAO, PREGU, UA #### [address] [address] UA Urobilinogen 0.2 E.U./dL Normal 0.2-1.0 [facility] Comment on above: Performed By: #### U AMICAO, PREGU, UA #### [address] [address] Urobilinogen (U) [Mass/Vol] Negative Normal Negative [facility] Comment on above: Performed By: #### U AMICAO, PREGU, UA #### [address] [address] Abdomen Single Viewon [address] [facility] [address] [place] [id number] Abdomen Single View MR#: [id number] Acct: [id number] Name: PENNIE KOENIG Rep #: [id number] : 1995 F 29 From: Jared kendrick MD PCP: Dr. Lashawn Avila, DO Status: REG CLI Study: Abdomen Single View Date of Exam: 09/24/24 Exam# [id number] Ordering Dr: Brittany Rodriguez MD -[id number] INDICATION: KUB- STONES EXAMINATION/TECHNIQ UE: X-RAY [...] 23:48 EST Reading Location ID and State: [address] [place] [address] Tel , Service support , CC: Dr. Brittany Rodriguez MD; Dr. 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: Signed Normal [facility] .Auto Diffon 08-15-2024 Basophil, Absolute 0.0 10 3/mcL Normal 0.0-0.2 [facility] Comment on above: Performed By: #### U BRITTANY GALICIAU, UA #### [facility] [address] [place], [place] [address] Basophils/100 WBC (Bld) 0.6 % Normal 0.0-2.5 [facility] Comment on above: Performed By: #### U BRITTANY GALICIAU, UA #### [facility] [address] [place], [place] [address] Eosinophil, Absolute 0.2 10 3/mcL Normal 0.0-0.7 [facility] Comment on above: Performed By: #### U FRIDA PREGU, UA #### [facility] [address] [place], [place] [address] Eosinophils/100 WBC (Bld) 3.5 % Normal 0.0-7.0 [facility] Comment on above: Performed By: #### BRITTANY GOODU, UA #### [address] [address] Lymphocyte, Absolute 1.6 10 3/mcL Normal 0.9-4.3 [facility] Comment on above: Performed By: #### BRITTANY GOODU, UA #### [address] [address] Lymphocytes/100 WBC (Bld) 33.4 % Normal 20.0-40.0 [facility] Comment on above: Performed By: #### BRITTANY GOODU, UA #### [address] [address] Monocyte, Absolute 0.6 10 3/mcL Normal 0.1-1.4 [facility] Comment on above: Performed By: #### BRITTANY GOODU, UA #### [address] [address] Monocytes/100 WBC (Bld) 12.3 % Normal 2.0-13.0 [facility] Comment on above: Performed By: #### BRITTANY GOODU, UA #### [address] [address] Neutrophils/100 WBC (Bld) 50.2 % Normal 50.0-75.0 [facility] Comment on above: Performed By: #### BRITTANY GOODU, UA #### [address] [address] .GFRon 08-15-2024 GFR 77 ml/min/1.73sqm Normal [facility] Comment on above: Result Comment: GFR [...] meters Performed By: #### P REGU #### [address] [address] GFR Non- 63 ml/min/1.73sqm Normal [facility] Comment on above: Result Comment: GFR [...] meters Performed By: #### P REGU #### [place] [address] .MDWon 08-15-2024 Monocyte Distribution Width 16.70 Normal 0.00-20.00 [facility] Comment on above: Result Comment: For ED adult patients suspected of sepsis, MDW<=20.0 does not rule out sepsis or risk of sepsis Performed By: #### U AMICAO, PREGU, UA #### [address] [address] .NEUABSon 08-15-2024 Neutrophil, Absolute 2.4 10 3/mcL Normal 2.3-8.1 [facility] Comment on above: Performed By: #### U AMICAO, PREGU, UA #### [address] [address] .Urinalysis Microscopic (AO) on 08-15-2024 UA RBC None Seen Normal None Seen [facility] Comment on above: Performed By: #### U AMICAO, PREGU, UA #### [place] [address] UA Squam Epithelial 5-10 Abnormal None Seen [facility] Comment on above: Performed By: #### U AMICAO, PREGU, UA #### [place] [address] UA WBC 0-5 Abnormal None Seen [facility] Comment on above: Performed By: #### U AMICAO, PREGU, UA #### [place] [address] CBCon 08-15-2024 Erythrocyte distribution width (RBC) [Ratio] 13.1 % Normal 11.5-15.5 [facility] Comment on above: Performed By: #### U AMICAO, PREGU, UA #### [place] [address] Hematocrit (Bld) [Volume fraction] 36.4 % Normal 34.0-46.0 [facility] Comment on above: Performed By: #### U AMICAO, PREGU, UA #### [place] [address] Hgb 12.6 G/dL Normal 12.0-16.0 [facility] Comment on above: Performed By: #### U AMICAO, PREGU, UA #### [place] [address] MCH (RBC) [Entitic mass] 31.0 pg Normal 27.0-33.0 [facility] Comment on above: Performed By: #### U AMICAO, PREGU, UA #### [place] [address] MCHC 34.6 G/dL Normal 32.0-36.0 [facility] Comment on above: Performed By: #### U AMICAO, PREGU, UA #### [place] [address] MCV (RBC) [Entitic vol] 89.6 fL Normal 80.0-99.[address] [facility] Comment on above: Performed By: #### LASHONDA GOOD UA #### [address] [address] Platelet 306 10 3/mcL Normal 150-450 [facility] Comment on above: Performed By: #### LASHONDA GOOD, UA #### [address] [address] Platelet mean volume (Bld) [Entitic vol] 7.9 fL Normal 6.6-10.5 [facility] Comment on above: Performed By: #### LASHONDA GOOD, UA #### [address] [address] RBC 4.07 10 6/mcL Low 4.10-5.30 [facility] Comment on above: Performed By: #### LASHONDA GOOD, UA #### [address] [address] WBC 4.7 10 3/mcL Normal 4.5-10.8 [facility] Comment on above: Performed By: #### LASHONDA GOOD, UA #### [address] [address] CMPon 08-15-2024 Albumin Level 3.6 G/dL Normal 3.5-5.0 [facility] Comment on above: Performed By: #### BRITTANY GOODU, UA #### [address] [address] Albumin/Globulin [Mass ratio] 1.0 {ratio} Low 1.1-2.5 [facility] Comment on above: Performed By: #### BRITTANY GOODU, UA #### [address] [address] ALP [Catalytic activity/Vol] 98 U/L Normal 40-135 [facility] Comment on above: Performed By: #### LASHONDA GOOD, UA #### [address] [address] ALT [Catalytic activity/Vol] 38 U/L Normal 14-59 [facility] Comment on above: Performed By: #### U AMICAO, PREGU, UA #### [address] [address] AST [Catalytic activity/Vol] 21 U/L Normal 10-40 [facility] Comment on above: Performed By: #### U AMICAO, PREGU, UA #### [address] [address] Bili Total 0.2 mg/dL Normal 0.2-1.0 [facility] Comment on above: Result Comment: Use of this assay is not recommended for patients undergoing treatment with eltrombopag due to the potential for falsely elevated results. Performed By: #### U AMICAO, PREGU, UA #### [address] [address] BUN/Creatinine Ratio 9 ratio Normal 7-27 [facility] Comment on above: Performed By: #### U AMICAO, PREGU, UA #### [address] [address] Calcium [Mass/Vol] 8.6 mg/dL Normal 8.4-10.2 [facility] Comment on above: Performed By: #### U AMICAO, PREGU, UA #### [address] [address] Chloride [Moles/Vol] 102 mmol/L Normal 98-107 [facility] Comment on above: Performed By: #### U AMICAO, PREGU, UA #### [address] [address] CO2 [Moles/Vol] 30 mmol/L High 22-29 [facility] Comment on above: Performed By: #### U AMICAO, PREGU, UA #### [address] [address] Creatinine [Mass/Vol] 1.03 mg/dL High 0.55-1.02 [facility] Comment on above: Result Comment: Test ing performed on Siemens Dimension EXL analyzer using a modified kinetic Leah technique. Performed By: #### BRITTANY GOODU, UA #### [address] [address] Electrolyte Balance 7.0 mEq/L Normal 4.0-15.0 [facility] Comment on above: Performed By: #### Le GALICIA PREGU, UA #### [address] [address] Globulin 3.5 G/dL Normal [facility] Comment on above: Performed By: #### BRITTANY GOODU, UA #### [address] [address] Glucose [Mass/Vol] 91 mg/dL Normal 70-105 [facility] Comment on above: Performed By: #### BRITTANY GOODU, UA #### [address] [address] Potassium [Moles/Vol] 4.4 mmol/L Normal 3.5-5.1 [facility] Comment on above: Performed By: #### Le GALICIA PREGU, UA #### [address] [address] Sodium [Moles/Vol] 139 mmol/L Normal 136-145 [facility] Comment on above: Performed By: #### Le GALICIA PREGU, UA #### [address] [address] Total Protein 7.1 G/dL Normal 6.4-8.2 [facility] Comment on above: Performed By: #### Le GALICIA PREGU, UA #### [address] [address] Urea nitrogen [Mass/Vol] 9 mg/dL Normal 7-18 [facility] Comment on above: Performed By: #### U AMICAO, PREGU, UA #### [facility] [address] [place], [place] [address] CT ABDOMEN/PELVIS W/O CONTRA STon 08-15-2024 CT [...] 08/15/2024 4:17:23 PM Ordering Provider: LISA Wing [facility] LABORATORYOrdered By: Elizabeth Rodas on 08-15-2024 [...] HCG ( test) Ql (U) Negative Normal [facility] Comment on above: Performed By: #### P REGU #### [address] [address] test (u) int Not detected Invalid Interpretation Code [facility] Comment on above: Performed By: #### P REGU #### [address] [address] UAon 08-15-2024 Color (U) Yellow Normal [facility] Comment on above: Performed By: #### U AMICAO, PREGU, UA #### [address] [address] Glucose (U) [Mass/Vol] Negative Normal Negative [facility] Comment on above: Performed By: #### U AMICAO, PREGU, UA #### [place] [address] Ketones Ql (U) Negative Normal Negative [facility] Comment on above: Performed By: #### U AMICAO, PREGU, UA #### [place] [address] UA Appear Cloudy Abnormal Clear [facility] Comment on above: Performed By: #### U AMICAO, PREGU, UA #### [place] [address] UA Blood Negative Normal Negative [facility] Comment on above: Performed By: #### U AMICAO, PREGU, UA #### [place] [address] UA Leuk Est Negative Normal Negative [facility] Comment on above: Performed By: #### U AMICAO, PREGU, UA #### [place] [address] UA Nitrite Negative Normal Negative [facility] Comment on above: Performed By: #### U AMICAO, PREGU, UA #### [place] [address] UA pH 7.5 Normal 5.0 - 8.0 [facility] Comment on above: Performed By: #### U AMICAO, PREGU, UA #### [place] [address] UA Protein Negative Normal Negative [facility] Comment on above: Performed By: #### U AMICAO, PREGU, UA #### [place] [address] UA Spec Grav 1.020 Normal 1.015-1.025 [facility] Comment on above: Performed By: #### U AMICAO, PREGU, UA #### [place] [address] UA Specimen Type Not Given Normal [facility] Comment on above: Performed By: #### U AMICAO, PREGU, UA #### [facility] [address] [place], [place] [address] UA Urobilinogen 0.2 E.U./dL Normal 0.2-1.0 [facility] Comment on above: Performed By: #### U AMICAO, PREGU, UA #### [facility] [address] [place], [place] [address] Urobilinogen (U) [Mass/Vol] Negative Normal Negative [facility] Comment on above: Performed By: #### U AMICAO, PREGU, UA #### [place] [address] [place], [place] [address] Chest PA and Lateralon 07-23 Chest PA [address] L[address] [facility] Imaging Services [address] [place], [place] [address] Chest PA and Lateral MR#: [id number] Acct: [id number] Name: PENNIE KOENIG Rep #: [id number] : 1995 F 29 From: Red Nix DO PCP: Dr. Lashawn Avila DO Status: REG CLI Study: Chest PA and Lateral Date of Exam: 07/23/24 Exam# [id number] Ordering Dr: Gustavo Torres PA PA -[id number] INDICATION: SHORTNESS OF BREATHE EXAMINATION/TECHNIQ UE: [...] Signed: Red Nix DO at 16:13 EDT Reading Location ID and State: [facility] / [place] Tel [phone], Service support , CC: KASIA Meredith; Dr. 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: Signed Normal [facility] Visit Reporton 1 Urgent Care Visit Report [facility] [address], [address] [place] [id number] OFFICE VISIT Date of Service: 07/23/24 MR#: [id number] Acct: [id number] Name: PENNIE KOENIG Rep #: [id number] : 1995 Provider: KASIA Meredith Age/Sex: 29/F Location: [facility] Status: Signed Intake Vital Signs 07/16/24 09:11 07/23/24 15:43 Height 5 ft 8 in BP 122/80 H Blood Pressure Location Lt brachial Position Sitting Respiration 17 Pulse 63 Pulse Source NIBP Temp 97.9 F Temp Source Axillary Pulse Oximetry (%) 98 Oxygen Delivery Method room air Intake Visit Reasons: COUGH/CHEST CONGESTION Chief Complaint: cough, congest, SOB, grn mucus Retirement Benefits Specialist Required: No Is patient in pain?: No Allergies amoxicillin (Amoxicillin) Allergy (Verified 07/23/24 15:44) Rash Penicillins Allergy (Verified 07/23/24 15:44) Rash Is last menstrual period known: No Post menopausal: No Patient : No Have you fallen in the past year?: No Nurse's Note: cough, congest, SOB, grn mucus x 3 weeks without improvement. denies asthma, negative covid test 3 days ago. 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 , currently Genital herpes OCD (obsessive compulsive disorder) Anxiety Surgical History H/O foot surgery H/O dilation and curettage Social History adopted: No household members: family housing: house number of children: 3 current occupational status: employed current occupation: [employer] pets and animals: Yes Smoking Status: Current every day smoker tobacco type: cigarettes second hand exposure: No alcohol intake: current details: social- not while substance use type: does not use seatbelt use: always do you feel safe at home: Yes additional social history: Spouse: Ashon- student ([employer]- 6, Wes-11) [facility] HPI Chief Complaint: cough, congest, SOB, grn [...] 0RF Clinica (more content not included)... Normal [facility] Genital Culture Comprehensiv ariel 07-18-2024 VAC Reason for Exam: vaginal irritation No yeast, Neisseria or beta-hemolytic Streptococcus isolated. G. vaginalis (Presumptive) Amount Growth 3+ Normal [facility] Comment on above: Performed By: #### M 100.1999, M100.3200 ####[facility] [id number] [place], [place], [address] Gram Stainon 07-16-2024 GS Reason for Exam: vaginal irritation Gram Stain 4+ Gram variable montse 1+ Gram positive cocci No Gram negative diplococci Score = 8 Interpretation: 0-3 Normal, 4-6 Intermediate, 7-10 Positive BV Normal [facility] Comment on above: Performed By: #### M 100.1999, M100.3200 ####[facility] [id number] 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) Chief Complaint: Annual Retirement Benefits Specialist Required: No Is patient in pain?: No [...] menopausal: No Patient : No : No 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 , currently Genital herpes OCD (obsessive compulsive disorder) Anxiety Surgical History H/O foot surgery H/O dilation and curettage Social History adopted: No household members: family housing: house number of children: 3 current occupational status: employed current occupation: [employer] pets and animals: Yes Smoking Status: Current [...] Date Name GA/Weeks Outcome Route Bth Weight Infant Gen Labor Lgth Anesthesia Del Locatn Provider FOB 07/10/14 Mar 39 live - full term 9lbs 6oz Female 12 hours epidural [facility] SMITA 03/17/16 Ashley 39 live - full term 8lbs 6oz Female 8-9 hours epidural [facility] Fior 09/03/17 Chastity 39 live - full term 8lbs 6oz Male 8 hours epidural [facility] Dr Rashaun Harvey 05/12/21 Marquiseondrjake 39 live - full term Male spinal [facility] Aditya r. Carl Delivery Date: 07/10/14 Last Updated by: [...] age 40 Other preventative health care screenings: [facility] Female Reproductive History Last Menstrual Period: 07/02/24 [...] oriented to person and oriented to place [facility] Head: normal to inspection Neck Neck: normal [...] deferred External (more content not included)... Normal [facility] CORTISOL SERUMon 06-24-2024 CORTISOL 14.00 ug/dL Normal 3.44-22.45 [facility] Comment on above: Result Comment: Adul t (AM) 5.27 - 22.45 ug/dL Adult (PM) 3.44 - 16.76 ug/dL Performed By: #### L 506.1000, L509.6000, L100.0100, L500.4050, L501.9520, L503.6150, L503.6550, L506.0400, L503.0105 ####[facility] [id number] [place], [place], [id number] Vitamin B12on 06-24-2024 Cobalamin (Vitamin B12) [Mass/Vol] 628 pg/mL Normal 211-911 [facility] Comment on above: Performed By: #### L 506.1000, L509.6000, L100.0100, L500.4050, L501.9520, L503.6150, L503.6550, L506.0400, L503.0105 ####[facility] [id number] [place], [place], [id number] Vitamin D,25 Hydroxyon 06-24 Vitamin D 25-OH 65.0 ng/mL Normal [facility] Comment on above: Result Comment: Andreia min D 25(OH) Status Range Deficiency <20 ng/mL (50nmol/L) Insufficiency 20 - 30 ng/mL (50 - 75 nmol/L) Sufficiency 30 - 100 ng/mL (75 - 250 nmol/L) Toxicity >100 ng/mL (>250 nmol/L) Performed By: #### L 506.1000, L509.6000, L100.0100, L500.4050, L501.9520, L503.6150, L503.6550, L506.0400, L503.0105 ####[facility] [id number] [place], [place], [address] CBC W/Diff, Automatedon Absolute Lymph 1.56 X10 3/uL Normal 0.83-4.51 [facility] Comment on above: Performed By: #### L 506.1000, L509.6000, L100.0100, L500.4050, L501.9520, L503.6150, L503.6550, L506.0400, L503.0105 ####[facility] [address] [place], [place], [phone] Absolute Neut 2.8 X10 3/uL Normal 2.0-7.7 [facility] Comment on above: Performed By: #### L 506.1000, L509.6000, L100.0100, L500.4050, L501.9520, L503.6150, L503.6550, L506.0400, L503.0105 ####[facility] [address] [place], [place], [phone] Basophils/100 WBC (Bld) 0.2 % Normal 0-1 [facility] Comment on above: Performed By: #### L 506.1000, L509.6000, L100.0100, L500.4050, L501.9520, L503.6150, L503.6550, L506.0400, L503.0105 ####[facility] [address] [place], [address] Eosinophils/100 WBC (Bld) 0.6 % Normal 0-5 [facility] Comment on above: Performed By: #### L 506.1000, L509.6000, L100.0100, L500.4050, L501.9520, L503.6150, L503.6550, L506.0400, L503.0105 ####[facility] [address] [place], [address] Erythrocyte distribution width (RBC) [Ratio] 11.9 % Normal 11.6-14.6 [facility] Comment on above: Performed By: #### L 506.1000, L509.6000, L100.0100, L500.4050, L501.9520, L503.6150, L503.6550, L506.0400, L503.0105 ####[facility] [address] [place], [address] Hematocrit (Bld) [Volume fraction] 37.7 % Normal 37-47 [facility] Comment on above: Performed By: #### L 506.1000, L509.6000, L100.0100, L500.4050, L501.9520, L503.6150, L503.6550, L506.0400, L503.0105 ####[facility] [address] [facility] [place], [address] Hemoglobin (Bld) [Mass/Vol] 12.4 g/dL Normal 12.0-15.0 [facility] Comment on above: Performed By: #### L 506.1000, L509.6000, L100.0100, L500.4050, L501.9520, L503.6150, L503.6550, L506.0400, L503.0105 ####[facility] [address] [facility] [place], [address] IG% 0.200 Normal 0.0-0.9 [facility] Comment on above: Result Comment: IG% - Immature Granulocytes (promyelocytes, myelocytes and metamyelocytes) > 1% indicates that a LEFT SHIFT is Present. Performed By: #### L 506.1000, L509.6000, L100.0100, L500.4050, L501.9520, L503.6150, L503.6550, L506.0400, L503.0105 ####[facility] [address] [facility] [place], [address] Lymphocytes/100 WBC (Bld) 32.7 % Normal 19-41 [facility] Comment on above: Performed By: #### L 506.1000, L509.6000, L100.0100, L500.4050, L501.9520, L503.6150, L503.6550, L506.0400, L503.0105 ####[facility] [address] [place], [address] MCH (RBC) [Entitic mass] 29.6 pg Normal 27.0-32.0 [facility] Comment on above: Performed By: #### L 506.1000, L509.6000, L100.0100, L500.4050, L501.9520, L503.6150, L503.6550, L506.0400, L503.0105 ####[facility] [address] [place], [address] MCHC (RBC) [Mass/Vol] 32.9 g/dL Normal 32-36 [facility] Comment on above: Performed By: #### L 506.1000, L509.6000, L100.0100, L500.4050, L501.9520, L503.6150, L503.6550, L506.0400, L503.0105 ####[facility] [address] [place], [address] MCV (RBC) [Entitic vol] 90.0 fL Normal 81-99 [facility] Comment on above: Performed By: #### L 506.1000, L509.6000, L100.0100, L500.4050, L501.9520, L503.6150, L503.6550, L506.0400, L503.0105 ####[facility] [address] [place], [address] Monocytes/100 WBC (Bld) 8.6 % Normal 0-10 [facility] Comment on above: Performed By: #### L 506.1000, L509.6000, L100.0100, L500.4050, L501.9520, L503.6150, L503.6550, L506.0400, L503.0105 ####[facility] [address] [place], [address] Neutrophils/100 WBC (Bld) 57.7 % Normal 47-70 [facility] Comment on above: Performed By: #### L 506.1000, L509.6000, L100.0100, L500.4050, L501.9520, L503.6150, L503.6550, L506.0400, L503.0105 ####[facility] [address] [place], [address] Nucleated RBC (Bld) [#/Vol] 0 10*3/uL Normal 0-5 [facility] Comment on above: Performed By: #### L 506.1000, L509.6000, L100.0100, L500.4050, L501.9520, L503.6150, L503.6550, L506.0400, L503.0105 ####[facility] [address] [place], [address] Platelet mean volume (Bld) [Entitic vol] 10.2 fL Normal 6.2-12.0 [facility] Comment on above: Performed By: #### L 506.1000, L509.6000, L100.0100, L500.4050, L501.9520, L503.6150, L503.6550, L506.0400, L503.0105 ####[facility] [address] [place], [address] Platelets (Bld) [#/Vol] 362 10*3/uL Normal 150-450 [facility] Comment on above: Performed By: #### L 506.1000, L509.6000, L100.0100, L500.4050, L501.9520, L503.6150, L503.6550, L506.0400, L503.0105 ####[facility] [address] [place], [address] RBC (Bld) [#/Vol] 4.19 10*6/uL Low 4.2-5.4 [facility] Comment on above: Performed By: #### L 506.1000, L509.6000, L100.0100, L500.4050, L501.9520, L503.6150, L503.6550, L506.0400, L503.0105 ####[facility] [address] [place], [place], [phone]) RDW SD 38.7 fl Normal 35.1-43.9 [facility] Comment on above: Performed By: #### L 506.1000, L509.6000, L100.0100, L500.4050, L501.9520, L503.6150, L503.6550, L506.0400, L503.0105 ####[facility] [address] [place], [place], [phone] WBC (Bld) [#/Vol] 4.8 10*3/uL Normal 4.4-11.0 [facility] Comment on above: Performed By: #### L 506.1000, L509.6000, L100.0100, L500.4050, L501.9520, L503.6150, L503.6550, L506.0400, L503.0105 ####[facility] [address] [place], [place], [phone] Comprehensive Metabolic [facility] 06-23-2024 Albumin [Mass/Vol] 3.9 g/dL Normal 3.2-5.0 [facility] Comment on above: Performed By: #### L 506.1000, L509.6000, L100.0100, L500.4050, L501.9520, L503.6150, L503.6550, L506.0400, L503.0105 ####[facility] [address] [place], [place], [phone] Albumin/Globulin [Mass ratio] 1.0 {ratio} Normal 0.9-2.4 [facility] Comment on above: Performed By: #### L 506.1000, L509.6000, L100.0100, L500.4050, L501.9520, L503.6150, L503.6550, L506.0400, L503.0105 ####[facility] [address] [place], [address] ALK P 81 U/L Normal 45-117 [facility] Comment on above: Performed By: #### L 506.1000, L509.6000, L100.0100, L500.4050, L501.9520, L503.6150, L503.6550, L506.0400, L503.0105 ####[facility] [address] [place], [address] ALT [Catalytic activity/Vol] 22 U/L Normal 13-56 [facility] Comment on above: Performed By: #### L 506.1000, L509.6000, L100.0100, L500.4050, L501.9520, L503.6150, L503.6550, L506.0400, L503.0105 ####[facility] [address] [place], [address] AST [Catalytic activity/Vol] 15 U/L Normal 15-37 [facility] Comment on above: Performed By: #### L 506.1000, L509.6000, L100.0100, L500.4050, L501.9520, L503.6150, L503.6550, L506.0400, L503.0105 ####[facility] [address] [place], [address] Bilirubin [Mass/Vol] 0.50 mg/dL Normal 0.20-1.00 [facility] Comment on above: Result Comment: For patients on eltrombopag therapy, use of Dimension [place] TBIL is not recommended. Performed By: #### L 506.1000, L509.6000, L100.0100, L500.4050, L501.9520, L503.6150, L503.6550, L506.0400, L503.0105 ####[facility] [address] [place], [address] BUN/CRE 14.2 RATIO Normal 10-20 [facility] Comment on above: Performed By: #### L 506.1000, L509.6000, L100.0100, L500.4050, L501.9520, L503.6150, L503.6550, L506.0400, L503.0105 ####[facility] [address] [place], [address] CA,Total 9.1 mg/dL Normal 8.5-10.1 [facility] Comment on above: Performed By: #### L 506.1000, L509.6000, L100.0100, L500.4050, L501.9520, L503.6150, L503.6550, L506.0400, L503.0105 ####[facility] [address] [place], [address] Chloride [Moles/Vol] 103 mmol/L Normal 98-107 [facility] Comment on above: Performed By: #### L 506.1000, L509.6000, L100.0100, L500.4050, L501.9520, L503.6150, L503.6550, L506.0400, L503.0105 ####[facility] [address] [place], [address] CO2 [Moles/Vol] 25.0 mmol/L Normal 21.0-32.0 [facility] Comment on above: Performed By: #### L 506.1000, L509.6000, L100.0100, L500.4050, L501.9520, L503.6150, L503.6550, L506.0400, L503.0105 ####[facility] [address] [place], [place], [phone] Creatinine [Mass/Vol] 0.85 mg/dL Normal 0.55-1.02 [facility] Comment on above: Result Comment: The validity of the calculated GFR GFRAA in patients over 70 years has not been determined. Clinical correlation is essential. Performed By: #### L 506.1000, L509.6000, L100.0100, L500.4050, L501.9520, L503.6150, L503.6550, L506.0400, L503.0105 ####[facility] [address] [place], [place], [phone] EST GFR - AA 102 mL/min Normal >60 [facility] Comment on above: Result Comment: Afri can Citizen [place] GFR Calc Performed By: #### L 506.1000, L509.6000, L100.0100, L500.4050, L501.9520, L503.6150, L503.6550, L506.0400, L503.0105 ####[facility] [address] [place], [address] GAP 8 Normal 5-15 [facility] Comment on above: Performed By: #### L 506.1000, L509.6000, L100.0100, L500.4050, L501.9520, L503.6150, L503.6550, L506.0400, L503.0105 ####[facility] [address] [place], [address] GFR/1.73 sq M.predicted among non-blacks MDRD (S/P/Bld) [Vol rate/Area] 84 mL/min/{1.73_m2} Normal >60 [facility] Comment on above: Result Comment: Non- GFR Calc Performed By: #### L 506.1000, L509.6000, L100.0100, L500.4050, L501.9520, L503.6150, L503.6550, L506.0400, L503.0105 ####[facility] [address] [place], [address] Globulin (S) [Mass/Vol] 4.1 g/dL Normal 2.2-4.2 [facility] Comment on above: Performed By: #### L 506.1000, L509.6000, L100.0100, L500.4050, L501.9520, L503.6150, L503.6550, L506.0400, L503.0105 ####[facility] [address] [place], [address] Glucose [Mass/Vol] 77 mg/dL Normal 74-106 [facility] Comment on above: Performed By: #### L 506.1000, L509.6000, L100.0100, L500.4050, L501.9520, L503.6150, L503.6550, L506.0400, L503.0105 ####[facility] [address] [place], [address] Potassium [Moles/Vol] 3.8 mmol/L Normal 3.5-5.1 [facility] Comment on above: Performed By: #### L 506.1000, L509.6000, L100.0100, L500.4050, L501.9520, L503.6150, L503.6550, L506.0400, L503.0105 ####[facility] [address] [place], [address] Sodium [Moles/Vol] 136 mmol/L Normal 136-145 [facility] Comment on above: Performed By: #### L 506.1000, L509.6000, L100.0100, L500.4050, L501.9520, L503.6150, L503.6550, L506.0400, L503.0105 ####[facility] [address] [place], [address] T PROT 8.0 g/dL Normal 6.4-8.2 [facility] Comment on above: Performed By: #### L 506.1000, L509.6000, L100.0100, L500.4050, L501.9520, L503.6150, L503.6550, L506.0400, L503.0105 ####[facility] [address] [place], [place], [phone] Urea nitrogen [Mass/Vol] 12 mg/dL Normal 7-18 [facility] Comment on above: Performed By: #### L 506.1000, L509.6000, L100.0100, L500.4050, L501.9520, L503.6150, L503.6550, L506.0400, L503.0105 ####[facility] [address] [place], [place], [phone] Ferritinon 06-23-2024 Ferritin [Mass/Vol] 51 ng/mL Normal 8-252 [facility] Comment on above: Performed By: #### L 506.1000, L509.6000, L100.0100, L500.4050, L501.9520, L503.6150, L503.6550, L506.0400, L503.0105 ####[facility] [address] [place], [place], [phone] Ironon 06-23-2024 Iron [Mass/Vol] 90 ug/dL Normal 50-170 [facility] Comment on above: Performed By: #### L 506.1000, L509.6000, L100.0100, L500.4050, L501.9520, L503.6150, L503.6550, L506.0400, L503.0105 ####[facility] [address] [place], [place], [phone] T4 Free Directon 06-23-2024 T4 FREE DIRECT 1.05 ng/dL Normal 0.76-1.46 [facility] Comment on above: Performed By: #### L 506.1000, L509.6000, L100.0100, L500.4050, L501.9520, L503.6150, L503.6550, L506.0400, L503.0105 ####[facility] [address] [place], [place], [address] Thyroid Stim Hormone (TSH)on 06-23-2024 TSH 0.497 uIU/mL Normal 0.358-3.740 [facility] Comment on above: Performed By: #### L 506.1000, L509.6000, L100.0100, L500.4050, L501.9520, L503.6150, L503.6550, L506.0400, L503.0105 ####[facility] [address] [facility]. [place], [place], [phone] .GFRon 06-10-2024 GFR Non- 85 ml/min/1.73sqm Normal [facility] ([place] Comment on above: Result Comment: GFR Population [...] Performed By: #### B MP, GFR #### Willy [address] [address] GFR 103 ml/min/1.73sqm Normal [facility] ([place] Comment on above: Result Comment: GFR Population [...] Performed By: #### B MP, GFR #### [address] [address] .Urinalysis Microscopic (AO) on 06-10-2024 UA Bacteria Trace Abnormal [facility] ([place] Comment on above: Performed By: #### B MP, GFR #### [address] [address] UA RBC 0-5 Abnormal None Seen [facility] ([place] Comment on above: Performed By: #### B MP, GFR #### [address] [address] UA Squam Epithelial LOADED Abnormal None Seen [facility] ([place] Comment on above: Performed By: #### B MP, GFR #### [address] [address] UA WBC 0-5 Abnormal None Seen [facility] ([place] Comment on above: Performed By: #### B MP, GFR #### [address] [address] BMPon 06-10-2024 BUN/Creatinine Ratio 14 ratio Normal -27 [facility] ([place] Comment on above: Performed By: #### B MP, GFR #### [address] [address] Calcium [Mass/Vol] 8.9 mg/dL Normal 8.4-10.2 [facility] ([place] Comment on above: Performed By: #### B MP, GFR #### [address] [address] Chloride [Moles/Vol] 103 mmol/L Normal 98-107 [facility] ([place] Comment on above: Performed By: #### B MP, GFR #### [address] [address] CO2 [Moles/Vol] 30 mmol/L High 22-29 [facility] ([place] Comment on above: Performed By: #### B MP, GFR #### [address] [address] Creatinine [Mass/Vol] 0.80 mg/dL Normal 0.55-1.02 [facility] ([place]) Comment on above: Performed By: #### B MP, GFR #### [address] [address] Electrolyte Balance 5.0 mEq/L Normal 4.0-15.0 [facility] ([place] Comment on above: Performed By: #### B MP, GFR #### [address] [address] Glucose [Mass/Vol] 112 mg/dL High 70-105 [facility] ([place] Comment on above: Performed By: #### B MP, GFR #### [address] [address] Potassium [Moles/Vol] 4.0 mmol/L Normal 3.5-5.1 [facility] ([place] Comment on above: Performed By: #### B MP, GFR #### [address] [address] Sodium [Moles/Vol] 138 mmol/L Normal 136-145 [facility] ([place] Comment on above: Performed By: #### B MP, GFR #### [address] [address] Urea nitrogen [Mass/Vol] 11 mg/dL Normal 7-18 [facility] ([place] Comment on above: Performed By: #### B MP, GFR #### [address] [address] [address] ABDOMEN/PELVIS W/O CONTRA STon 06-10-2024 CT [...] 06/10/2024 5:19:03 PM Ordering Provider: PARKER MEJIA [facility] ([place] LABORATORYOrdered By: SYSTEM SYSTEM on 06-10-2024 Calcium [...] HCG ( test) Ql (U) Negative Normal [facility] ([place] Comment on above: Performed By: #### B MP, GFR #### [address] [address] test (u) int Not detected Invalid Interpretation Code [facility] ([place] Comment on above: Performed By: #### B MP, GFR #### [address] [address] UAon 06-10-2024 Color (U) Yellow Normal [facility] ([place] Comment on above: Performed By: #### B MP, GFR #### [address] [address] Glucose (U) [Mass/Vol] Negative Normal Negative [facility] [place] Comment on above: Performed By: #### B MP, GFR #### [address] [address] Ketones Ql (U) Negative Normal Negative [facility] ([place] Comment on above: Performed By: #### B MP, GFR #### [address] [address] UA Appear Cloudy Abnormal Clear [facility] ([place] Comment on above: Performed By: #### B MP, GFR #### [address] [address] UA Blood Trace Abnormal Negative [facility] ([place] Comment on above: Performed By: #### B MP, GFR #### [address] [address] UA Leuk Est Negative Normal Negative [facility] ([place] Comment on above: Performed By: #### B MP, GFR #### [address] [address] UA Nitrite Negative Normal Negative [facility] ([place] Comment on above: Performed By: #### B MP, GFR #### [address] [address] UA pH 7.0 Normal 5.0 - 8.0 [facility] ([place] Comment on above: Performed By: #### B MP, GFR #### [address] [address] UA Protein Trace Normal Negative [facility] ([place] Comment on above: Performed By: #### B MP, GFR #### [place] [address] UA Spec Grav 1.020 Normal 1.015-1.025 [facility] ([place] Comment on above: Performed By: #### B MP, GFR #### [place] [address] UA Specimen Type Clean Catch Normal [facility] ([place] Comment on above: Performed By: #### B MP, GFR #### [place] [address] UA Urobilinogen 0.2 E.U./dL Normal 0.2-1.0 [facility] ([place] Comment on above: Performed By: #### B MP, GFR #### [place] [address] Urobilinogen (U) [Mass/Vol] Negative Normal Negative [facility] ([place] Comment on above: Performed By: #### B MP, GFR #### [address] [address] .Auto Diffon 02-15-2024 Basophil, Absolute 0.0 10 3/mcL Normal 0.0-0.2 [facility] ([place] Comment on above: Performed By: #### G MARK URBAN ADIFF, MDW, BMP, CBC #### [place] [id number] Basophils/100 WBC (Bld) 0.3 % Normal 0.0-2.5 [facility] ([place] Comment on above: Performed By: #### G MARK URBAN ADIFF, MDW, BMP, CBC #### [address] [address] Eosinophil, Absolute 0.0 10 3/mcL Normal 0.0-0.4 [facility] [place] Comment on above: Performed By: #### G FR, ANEU, DEBBIE, W, BMP, CBC #### [address] [address] Eosinophils/100 WBC (Bld) 0.1 % Normal 0.0-7.0 [facility] ([place] Comment on above: Performed By: #### G FR, ANEU, ADIFF, MDW, BMP, CBC #### [address] [address] Lymphocyte, Absolute 1.1 10 3/mcL Normal 0.8-3.9 [facility] [place] Comment on above: Performed By: #### G FR, ANEU, DEBBIE, MDW, BMP, CBC #### [address] [address] Lymphocytes/100 WBC (Bld) 6.4 % Low 10.0-50.0 [facility] ([place] Comment on above: Performed By: #### G FR, ANEU, DEBBIE, W, BMP, CBC #### [address] [address] Monocyte, Absolute 1.7 10 3/mcL High 0.2-1.0 [facility] ([place] Comment on above: Performed By: #### G FR, ANEU, ADDAVID, MDW, BMP, CBC #### [address] [address] Monocytes/100 WBC (Bld) 10.5 % Normal 1.7-13.0 Pending [facility] to [facility] ([place] Comment on above: Performed By: #### G FR, ANEU, DEBBIE, W, BMP, CBC #### [address] [address] Neutrophils/100 WBC (Bld) 82.7 % High 37.0-80.0 [facility] ([place] Comment on above: Performed By: #### G FR, ANEU, ADIFF, MDW, BMP, CBC #### [address] [address] .GFRon 02-15-2024 GFR 79 ml/min/1.73sqm Normal [facility] ([place] Comment on above: Result Comment: GFR Population [...] Performed By: #### B MP, GFR #### [address] [address] GFR Non- 66 ml/min/1.73sqm Normal [facility] ([place]) Comment on above: Result Comment: GFR Population [...] Performed By: #### B MP, GFR #### [address] [address] .MDWon 02-15-2024 Monocyte Distribution Width 22.69 High 0.00-20.00 [facility] ([place]) Comment on above: Result Comment: For adults in ED, MDW>20.0 may be associated with a higher risk of sepsis during the first 12hrs of hospital admission Performed By: #### G MARK URBAN ADIFF, MDW, WILLOW, CBC #### [address] [address] .NEUABSon 02-15-2024 Neutrophil, Absolute 13.6 10 3/mcL High 2.9-6.2 [facility] ([place] Comment on above: Performed By: #### G MARK URBAN ADIFF, MDW, WILLOW, CBC #### [address] [address] .Urinalysis Microscopic (AO) on 02-15-2024 UA Bacteria 1+ /hpf Abnormal [facility] ([place] Comment on above: Performed By: #### Le AMICAO, UA, PREGU #### [address] [address] UA RBC 0-5 Abnormal None Seen [facility] ([place] Comment on above: Performed By: #### Le AMICAO, UA, PREGU #### [address] [address] UA Squam Epithelial 5-10 Abnormal None Seen [facility] ([place] Comment on above: Performed By: #### U AMICAO, UA, PREGU #### [address] [address] UA WBC 15-25 Abnormal None Seen [facility] ([place] Comment on above: Performed By: #### U AMICAO, UA, PREGU #### [address] [address] BMPon 02-15-2024 BUN/Creatinine Ratio 9 ratio Normal 7-27 [facility] ([place] Comment on above: Performed By: #### B MP, GFR #### [address] [address] Calcium [Mass/Vol] 8.4 mg/dL Normal 8.4-10.2 [facility] ([place] Comment on above: Performed By: #### B MP, GFR #### [address] [address] Chloride [Moles/Vol] 102 mmol/L Normal 98-107 [facility] ([place] Comment on above: Performed By: #### B MP, GFR #### [address] [address] CO2 [Moles/Vol] 28 mmol/L Normal 22-29 [facility] ([place] Comment on above: Performed By: #### B MP, GFR #### [address] [address] Creatinine [Mass/Vol] 1.00 mg/dL Normal 0.55-1.02 [facility] ([place] Comment on above: Performed By: #### B MP, GFR #### [address] [address] Electrolyte Balance 9.0 mEq/L Normal 4.0-15.0 [facility] ([place] Comment on above: Performed By: #### B MP, GFR #### [address] [address] Glucose [Mass/Vol] 107 mg/dL High 70-105 [facility] ([place] Comment on above: Performed By: #### B MP, GFR #### [address] [address] Potassium [Moles/Vol] 4.2 mmol/L Normal 3.5-5.1 [facility] ([place] Comment on above: Performed By: #### B MP, GFR #### [address] [address] Sodium [Moles/Vol] 139 mmol/L Normal 136-145 [facility] ([place] Comment on above: Performed By: #### B MP, GFR #### [address] [address] Urea nitrogen [Mass/Vol] 9 mg/dL Normal 7-18 [facility] ([place] Comment on above: Performed By: #### B MP, GFR #### [address] [address] CBCon 02-15-2024 Erythrocyte distribution width (RBC) [Ratio] 12.6 % Normal 11.5-14.5 [facility] ([place]) Comment on above: Performed By: #### G , DEBBIE FLORES MDW, BMP, CBC #### [place] [address] Hematocrit (Bld) [Volume fraction] 34.7 % Low 37.0-47.0 [facility] ([place] Comment on above: Performed By: #### G , DEBBIE FLORES MDW, BMP, CBC #### [place] [address] Hgb 12.0 G/dL Normal 12.0-16.0 [facility] ([place] Comment on above: Performed By: #### G , DEBBIE FLORES MDW, BMP, CBC #### [place] [id number] MCH (RBC) [Entitic mass] 31.0 pg Normal 27.0-31.2 [facility] ([place] Comment on above: Performed By: #### G MARK URBAN ADIFF, MDW, BMP, CBC #### [place] [address] MCHC 34.7 G/dL Normal 33.0-37.0 [facility] ([place] Comment on above: Performed By: #### G , DEBBIE FLORES MDW, BMP, CBC #### [place] [id number] MCV (RBC) [Entitic vol] 89.5 fL Normal 80.0-94.0 [facility] ([place]) Comment on above: Performed By: #### G MARK URBAN ADIFF, MDW, BMP, CBC #### [place] [address] Platelet 237 10 3/mcL Normal 130-400 [facility] ([place] Comment on above: Performed By: #### G , DEBBIE FLORES MDW, BMP, CBC #### [place] [id number] [place], [place] [address] Platelet mean volume (Bld) [Entitic vol] 7.8 fL Normal 7.4-10.4 [facility] ([place] Comment on above: Performed By: #### G , DEBBIE FLORES MDW, BMP, CBC #### [place] [id number] [place], [place] [address] RBC 3.88 10 6/mcL Low 4.20-5.40 [facility] ([place] Comment on above: Performed By: #### G , DEBBIE FLORES MDW, BMP, CBC #### [place] [id number] [place], [place] [address] WBC 16.5 10 3/mcL High 4.6-10.8 [facility] ([place] Comment on above: Performed By: #### G , DEBBIE FLORES MDW, BMP, CBC #### [place] [id number] [place], [place] [address] LABORATORYOrdered By: Lashawn win on 02-15-2024 Appearance [...] AO Auto Urine SS UA pH 7.5 (5/3/24 5:23 PM) Normal 5.0 - 8.0 AO [...] HCG ( test) Ql (U) Negative Normal [facility] [place] Comment on above: Performed By: #### U AL GALICIA PREGU #### Willy [address] [address] test (u) int Not detected Invalid Interpretation Code [facility] [place] Comment on above: Performed By: #### U AMICAO, UA, PREGU #### [address] [address] UAon 02-15-2024 Color (U) Yellow Normal [facility] [place] Comment on above: Performed By: #### U AMICAO, UA, PREGU #### [address] [address] Glucose (U) [Mass/Vol] Negative Normal [facility] [place] Comment [place]: Performed By: #### U AMICAO, UA, PREGU #### [address] [address] Ketones Ql (U) Negative Normal Negative [facility] ([place] Comment on above: Performed By: #### U AMICAO, UA, PREGU #### [address] [address] UA Appear Cloudy Abnormal Clear [facility] [place] Comment on above: Performed By: #### U AMICAO, UA, PREGU #### [address] [address] UA Blood Trace Abnormal Negative [facility] [place] Comment on above: Performed By: #### U AMICAO, UA, PREGU #### [address] [address] UA Leuk Est Moderate Abnormal Negative [facility] [place] Comment on above: Performed By: #### U AMICAO, UA, PREGU #### [address] [address] UA Nitrite Negative Normal Negative [facility] [place] Comment on above: Performed By: #### U AMICAO, UA, PREGU #### [address] [address] UA pH 7.5 Normal 5.0 - 8.0 [facility] [place] Comment on above: Performed By: #### U AMICAO, UA, PREGU #### [address] [address] UA Protein 100 mg/dL Abnormal Negative [facility] [place] Comment on above: Performed By: #### U AMICAO, UA, PREGU #### [address] [place], [place] [address] UA Spec Grav 1.020 Normal 1.015-1.025 [facility] [place] Comment on above: Performed By: #### U AMICAO, UA, PREGU #### [address] [place], [place] [address] UA Specimen Type Clean Catch Normal [facility] [place] Comment on above: Performed By: #### U AMICAO, UA, PREGU #### [address] [address] UA Urobilinogen 0.2 E.U./dL Normal 0.2-1.0 [facility] [place] Comment on above: Performed By: #### U AMICAO, UA, PREGU #### [address] [address] Urobilinogen (U) [Mass/Vol] Negative Normal Negative [facility] [place] Comment on above: Performed By: #### U AMICAO, UA, PREGU #### [address] [address] Chlamydia trachomatis rRNA d etection by probe and target amplification methodOrdered By: Josi Nunn on 01-03-2024 C. trachomatis rRNA JANNEI+probe Ql (Unsp spec) Negative Negative [facility] Gram stain for investigation of transfusion reactionOrdered By: Josi Nunn on 01-03-2024 Microscopic observation Gram stain Nom (Unsp spec) [facility] Laboratory - Chemistry and C hemistry - challengeon 01-03-2024 Bilirubin Ql (U) Negative [facility] Glucose Ql (U) Negative [facility] Ketones Ql (U) Negative [facility] pH (U) 5.0 [pH] [facility] Specific gravity (U) [Rel density] 1.015 [facility] Urobilinogen (U) [Mass/Vol] Negative [facility] - Hematology and Cell countson 01-03-2024 Hemoglobin Ql (U) Hemolyzed [facility] - Microbiology an d Antimicrobial susceptibilityOrdered By: Josi Nunn on 01-03-2024 N. gonorrhoeae DNA JANNIE+probe Ql (Unsp spec) Negative Negative [facility] Comment on above: Performed at: =[address] [place], [place] [id number] Director: Vianey Giles MD, Phone: [phone] Laboratory - Specimen inform ationon 01-03-2024 Clarity (U) Cloudy [facility] Color (U) YELLOW [facility] Laboratory - Urinalysison Nitrite Ql (U) Negative [facility] Protein Ql (U) Negative [facility] No Panel InformationOrdered By: Josi Nunn on 01-03-2024 Genital Culture Presumptive C albicans [facility] Genital Culture G. vaginalis (Presumptive) [facility] No Panel Informationon 01-02 POC Bacterial Vaginitis (Rapid) Positive [facility] POC Trichomonas (Rapid) Negative W [facility] Urine Leukocytes Positive [facility] Urine Non-Hemolyzed Blood Large [facility] UA DIP, URINE (POC)on 2023 BILIRUBIN UA (POCT) Negative Negative [facility] CLARITY UA (POCT) Cloudy [facility] COLOR UA (POCT) Yellow [facility] GLUCOSE UA (POCT) Negative Negative mg/dL [facility] Hemoglobin Ql (U) Trace-intact Abnormal Negative [facility] KETONE UA (POCT) Negative Negative mg/dL [facility] LEUKOCYTES UA (POCT) Large Abnormal Negative [facility] NITRITE UA (POCT) Negative Negative [facility] PH UA (POCT) 7.0 4.5 - 8.0 [facility] Protein Ql (U) Negative Negative mg/dL [facility] SPECIFIC GRAVITY UA (POCT) 1.020 1.005 - 1.030 [facility] UROBILINOGEN UA (POCT) 0.2 E.U./dL Little l E.U./dL [facility] BASIC METABOLIC PANELon 10-15 Anion gap [Moles/Vol] 8 mmol/L Normal 3-13 [facility] Comment on above: Performed By: #### L [id number], [id number] #### Sound Recording Technician: TOYIN WRIGHT ([id number]) [facility] [address] [place] [address] Calcium [Mass/Vol] 8.7 mg/dL Normal 8.4-10.4 [facility] Comment on above: Performed By: #### L [id number], LAB15 #### Sound Recording Technician: TOYIN WRIGHT ([id number]) [facility] [address] [place] [address] [place] Chloride [Moles/Vol] 104 mmol/L Normal 98-107 [facility] Comment on above: Performed By: #### L [id number], LAB15 #### Sound Recording Technician: TOYIN WRIGHT ([id number]) [facility] [address] [place] [address] CO2 [Moles/Vol] 23 mmol/L Normal 22-30 [facility] Comment on above: Performed By: #### L [id number], LAB15 #### Sound Recording Technician: TOYIN WRIGHT ([id number]) [facility] [address] [place] [address] Creatinine [Mass/Vol] 0.80 mg/dL Normal 0.52-1.04 [facility] Comment on above: Performed By: #### L [id number], LAB15 #### Sound Recording Technician: TOYIN WRIGHT ([id number]) [facility] ([facility]) [address] [place] [address] GLOMERULAR FILTRATION RATE ML/MIN/1.73 SQ M.PREDICTED >90.0 Normal >60.0 [facility] Comment on above: Result Comment: Calc ulation based on the Chronic Kidney Disease Epidemiology Collaboration (CKD-EPI) equation refit without adjustment for race Performed By: #### L [id number], LAB15 #### Sound Recording Technician: TOYIN WRIGHT ([id number]) [facility] ([facility]) [address] [place] [address] [place] Glucose [Mass/Vol] 86 mg/dL Normal 70-100 [facility] Comment on above: Performed By: #### L [id number], LAB15 #### Sound Recording Technician: TOYIN [id number]) [facility] [address] [place] [address] Potassium [Moles/Vol] 4.0 mmol/L Normal 3.5-5.1 [facility] Comment on above: Performed By: #### L [id number], LAB15 #### Sound Recording Technician: TOYIN WRIGHT ([id number]) [facility] [address] [place] [address] Sodium [Moles/Vol] 135 mmol/L Normal 135-145 [facility] Comment on above: Performed By: #### L [id number], LAB15 #### Sound Recording Technician: TOYIN WRIGHT ([id number]) [facility] [address] [place] [address] Urea nitrogen [Mass/Vol] 9 mg/dL Normal 7-17 [facility] Comment on above: Performed By: #### L [id number], LAB15 #### Sound Recording Technician: TOYIN WRIGHT ([id number]) [facility] [address] [place] [address] Basic metabolic 1998 panelon 11-02-2023 Anion gap [Moles/Vol] 8 mmol/L 3 - 13 mmol/L [facility] Calcium [Mass/Vol] 8.7 mg/dL 8.4 - 10. 4 mg/dL [facility] Chloride [Moles/Vol] 104 mmol/L 98 - 10 7 mmol/L [facility] CO2 [Moles/Vol] 23 mmol/L 22 - 30 mmol/L [facility] Creatinine [Mass/Vol] 0.80 mg/dL 0.52 - 1.04 mg/dL [facility] GFR/1.73 sq M.predicted MDRD (S/P/Bld) [Vol rate/Area] - PINF [facility] Comment on above: Calculation based on the Chronic Kidney Disease Epidemiology Collaboration (CKD-EPI) equation refit without adjustment for race Glucose [Mass/Vol] 86 mg/dL 70 - 100 mg/dL [facility] Interpretation and review of laboratory results Normal [facility] Potassium [Moles/Vol] 4.0 mmol/L 3.5 - 5.1 mmol/L [facility] Sodium [Moles/Vol] 135 mmol/L 135 - 145 mmol/L [facility] Urea nitrogen [Mass/Vol] 9 mg/dL 7 - 17 mg/d L [facility] CBC W Auto Differential pane l (Bld)Ordered By: Brittany Araya on 11-02-2023 Basophils (Bld) [#/Vol] 0.0 10*3/uL 0.0 - 0.2 10*3/uL [facility] Basophils/100 WBC (Bld) 0.3 % 0.0 - 2.0 % [facility] Eosinophils (Bld) [#/Vol] 0.1 10*3/uL 0.0 - 0.5 10*3/uL [facility] Eosinophils/100 WBC (Bld) 2.3 % 1.0 - 6.0 % [facility] Erythrocyte distribution width (RBC) [Ratio] 13.7 % 11.5 - 14.5 % [facility] Hematocrit (Bld) [Volume fraction] 35.8 % 35.0 - 47.0 % [facility] Hemoglobin (Bld) [Mass/Vol] 12.0 g/dL 11.7 - 16.0 g/dL [facility] Interpretation and review of laboratory results Abnormal [facility] Lymphocytes (Bld) [#/Vol] 1.0 10*3/uL 1.0 - 4.3 10*3/uL [facility] Lymphocytes/100 WBC (Bld) 18.9 % Low 20.0 - 40.0 % [facility] MCH (RBC) [Entitic mass] 30.6 pg 26. 0 - 34.0 pg [facility] MCHC (RBC) [Mass/Vol] 33.4 % 32.0 - 36.0 % [facility] MCV (RBC) [Entitic vol] 91.5 fL 80.0 - 98.0 fL [facility] Monocytes (Bld) [#/Vol] 0.7 10*3/uL 0.0 - 0.8 10*3/uL [facility] Monocytes/100 WBC (Bld) 12.3 % High 2.0 - 10.0 % [facility] Neutrophils (Bld) [#/Vol] 3.7 10*3/uL 1.8 - 7.0 10*3/uL [facility] Neutrophils/100 WBC (Bld) 66.2 % 40.0 - 80.0 % [facility] Nucleated RBC/100 WBC (Bld) [Ratio] 0.0 % [facility] Platelet mean volume (Bld) [Entitic vol] 8.6 fL 7.4 - 12.4 fL [facility] Platelets (Bld) [#/Vol] 194 10*3/uL 140 - 440 10*3/uL [facility] RBC (Bld) [#/Vol] 3.91 10*6/uL 3.8 - 5.20 10*6/uL [facility] WBC (Bld) [#/Vol] 5.5 10*3/uL 3.6 - 10.7 10*3/uL [facility] CBC WITH AUTO DIFFERENTIALon 11-02-2023 Basophils (Bld) [#/Vol] 0.0 10*3/uL Normal 0.0-0.[address] [facility] Comment on above: Performed By: #### L [id number] ####Sound Recording Technician: TOYIN WRIGHT ([id number])[facility])[address] [place] [address] Basophils/100 WBC (Bld) 0.3 % Normal 0.0-2.0 [facility] Comment on above: Performed By: #### L [id number] ####Sound Recording Technician: TOYIN WRIGHT ([id number])[facility])[address] [place] [address] Eosinophils (Bld) [#/Vol] 0.1 10*3/uL Normal 0.0-0.[address] [facility] Comment on above: Performed By: #### L [id number] ####Sound Recording Technician: TOYIN WRIGHT ([id number])[facility])[address] [place] [address] Eosinophils/100 WBC (Bld) 2.3 % Normal 1.0-6.[address] [facility] Comment on above: Performed By: #### L [id number] ####Sound Recording Technician: TOYIN WRIGHT ([id number])[facility])[address] [place] [address] Erythrocyte distribution width (RBC) [Ratio] 13.7 % Normal 11.5-14.[address] [facility] Comment on above: Performed By: #### L [id number] ####Sound Recording Technician: TOYIN WRIGHT ([id number])[facility])[address] [place] [address] ERYTHROCYTE MEAN CORPUSCULAR HEMOGLOBIN CONCENTRATION (G/DL) BY AUTOMATED 33.4 % Normal 32.0-36.[address] [facility] Comment on above: Performed By: #### L [id number] ####Sound Recording Technician: TOYIN WRIGHT ([id number])[facility])[address] [place] [address] Hematocrit (Bld) [Volume fraction] 35.8 % Normal 35.0-47.[address] [facility] Comment on above: Performed By: #### L [id number] ####Sound Recording Technician: TOYIN WRIGHT ([id number])[facility])[address] [place] [address] Hemoglobin (Bld) [Mass/Vol] 12.0 g/dL Normal 11.7-16.[address] [facility] Comment on above: Performed By: #### L [id number] ####Sound Recording Technician: TOYIN WRIGHT ([id number])[facility])[address] [place] [address] Lymphocytes (Bld) [#/Vol] 1.0 10*3/uL Normal 1.0-4.[address] [facility] Comment on above: Performed By: #### L [id number] ####Sound Recording Technician: TOYIN WRIGHT ([id number])[facility])[address] [place] [address] Lymphocytes/100 WBC (Bld) 18.9 % Low 20.0-40.[address] [facility] Comment on above: Performed By: #### L [id number] ####Sound Recording Technician: TOYIN WRIGHT ([id number])[facility])[address] [place] [address] MCH (RBC) [Entitic mass] 30.6 pg Normal 26.0-34.[address] [facility] Comment on above: Performed By: #### L [id number] ####Sound Recording Technician: TOYIN WRIGHT ([id number])[facility] ([facility])[address] [place] [address] MCV (RBC) [Entitic vol] 91.5 fL Normal 80.0-98.0 [facility] Comment on above: Performed By: #### L [id number] ####Sound Recording Technician: TOYIN WRIGHT ([id number])[facility] ([facility])[address] [place] [address] [place] Monocytes (Bld) [#/Vol] 0.7 10*3/uL Normal 0.0-0.[address] [facility] Comment on above: Performed By: #### L [id number] ####Sound Recording Technician: TOYIN WRIGHT ([id number])[facility])[address] [place] [address] Monocytes/100 WBC (Bld) 12.3 % High 2.0-10.0 [facility] Comment on above: Performed By: #### L [id number] ####Sound Recording Technician: TOYIN WRIGHT ([id number])[facility] ([facility])[address] [place] [address] Neutrophils (Bld) [#/Vol] 3.7 10*3/uL Normal 1.8-7.[address] [facility] Comment on above: Performed By: #### L [id number] ####Sound Recording Technician: OTYIN WRIGHT ([id number])[facility])[address] [place] [address] Neutrophils/100 WBC (Bld) 66.2 % Normal 40.0-80.[address] [facility] Comment on above: Performed By: #### L [id number] ####Sound Recording Technician: TOYIN WRIGHT ([id number])[facility])[address] [place] [address] [place] NRBC (PER 100 WBCS) BY AUTOMATED COUNT 0.0 /100 WBCs Normal 0.0-2.[address] [facility] Comment on above: Performed By: #### L [id number] ####Sound Recording Technician: TOYIN WRIGHT ([id number])[facility] ([facility])[address] [place] [address] Platelet mean volume (Bld) [Entitic vol] 8.6 fL Normal 7.4-12.4 [facility] Comment on above: Performed By: #### L [id number] ####Sound Recording Technician: TOYIN WRIGHT ([id number])[facility] ([facility])[address] [place] [address] Platelets (Bld) [#/Vol] 194 10*3/uL Normal 140-440 [facility] Comment on above: Performed By: #### L [id number] ####Sound Recording Technician: TOYIN WRIGHT ([id number])[facility] ([facility])[address] [place] [address] RBC (Bld) [#/Vol] 3.91 10*6/uL Normal 3.8-5.20 [facility] Comment on above: Performed By: #### L [id number] ####Sound Recording Technician: TOYIN WRIGHT ([id number])[facility] ([facility])[address] [place] [address] WBC (Bld) [#/Vol] 5.5 10*3/uL Normal 3.6-10.7 [facility] Comment on above: Performed By: #### L [id number] ####Sound Recording Technician: TOYIN WRIGHT ([id number])[facility])[address] [place] [address] CT Abdomen and Pelvis WO and W [...] Electronically Signed Date/Time: 11/02/2023 10:32 AM EST [facility] [employer] [facility] Patient Name: PENNIE KOENIG : 1995 [...] lesions are seen on the bone windows. [facility] [employer] [facility] Reginald Liz MD - 11/02/2023 Patient Name: [...] Electronically Signed Date/Time: 11/02/2023 10:32 AM EST [facility] CONT [facility] 11-02-2023 CT CERVICAL SPINE WO IV CONTRAST [facility]IG [facility] 1995 [id number] Exam Date/Time: 11/02/2023 10:13 Procedure: CT CERVICAL [...] MD Electronically Signed Date/Time: 11/02/2023 10:[address] [facility] [address] CHEST ABDOMEN PELVIS WO C [facility] 11-02-2023 CT CHEST ABDOMEN PELVIS WO CONTRAST Patient Name: PENNIE KOENIG : 1995 [id number] Exam Date/Time: 11/02/2023 10:13 Procedure: CT CHEST [...] MD Electronically Signed Date/Time: 11/02/2023 10:[address] [facility] [address] Cervical spine WO contras ton 11-02-2023 No fracture or dislocation of the cervical spine. Report Dictated on Electronically Signed By: Reginald Liz MD Electronically Signed Date/Time: 11/02/2023 10:28 AM [facility] Patient Name: PENNIE KOENIG : 1995 [id number] Exam Date/Time: 11/02/2023 10:13 Procedure: CT CERVICAL [...] canal or neural foraminal stenosis is seen. [facility] Reginald Liz MD - 11/02/2023 [...] MD Electronically Signed Date/Time: 11/02/2023 10:28 AM [facility] CT HEAD WO IV CONTRASTon CT HEAD WO IV CONTRAST Patient Name: PENNIE KOENIG : 1995 Exam [...] MD Electronically Signed Date/Time: 11/02/2023 10:[address] [facility] [address] Head WO contraston 2023 No evidence of intracranial hemorrhage or definite acute cortical infarction. There is fluid within the right maxillary sinus which is incompletely visualized. This is nonspecific. Report Dictated on Electronically Signed By: Reginald Liz MD Electronically Signed Date/Time: 11/02/2023 10:27 AM [facility] Patient Name: PENNIE KOENIG : [...] within the right maxillary sinus, incompletely visualized. [facility] Reginald Liz MD - 11/02/2023 [...] Electronically Signed Date/Time: 11/02/2023 10:27 AM EST [facility] ED Nursing Noteon 11-02-2023 ED Nursing Note Pt's IV removed and 2x2 secured to site. Pt educated upon discharge instructions. Pt states understanding both verbally and nonverbally. Norris Barbosa RN 11/02/[address] [facility] ED Nursing Note Pt laying in bed. Pt has even and equal chest rise. Pt denies any needs at this time. Norris Barbosa RN 11/02/[address] [facility] ED Nursing Note Pt has even and equal chest rise. Pt A+Ox4. Pt denies any needs at this time. Norris Barbosa RN 11/02/[address] [facility] ED Nursing Note Ccollar in place by ems Ro Carrizales RN 11/02/[address] [facility] ED Nursing Note Bed: 30 Expected date: Expected time: Means of arrival: Comments: ems Char Metzger RN 11/02/[address] [facility] ED Provider Noteon ED Provider [...] [employer] Fitz Barnes DO 11/02/[address] [facility] ED Provider Note EMERGENCY DEPARTMENT [...] uterus d (more content not included)... Normal [facility] HCG QUANTITATIVE BLOODon HCG QUANTITATIVE <2 Normal Females <=5 [facility] Comment on above: Result Comment: LEE Fraire [...] , ectopic , gestosis or intrauterine . Kirsta- and postmenopausal females may have detectable hCG [...] disease. Performed By: #### L [id number], LAB15 ####Sound Recording Technician: TOYIN WRIGHT ([id number])[facility] ([facility])[address] [place] [address] No Panel Informationon 11-02 Radiology Study observation (narrative) Sammy Gonzales linda Progress Noteon 11-02-2023 Progress Note Did receive notification from pharmacy that the written script for 3 days of percocet could not be completed without written STEPHANY # on it. Did cancel previous script and new one e-scribed to patient's pharmacy. Pharmacy aware. Daiana Pink MD Normal [facility] XR Hand - right 3 Viewson Negative plain film examination of the right hand. Report Dictated on Electronically Signed By: Reginald Liz MD Electronically Signed Date/Time: 11/02/2023 9:35 AM EST [facility] [employer] [facility] Patient Name: PENNIE KOENIG : 1995 [...] tissue swelling or radiopaque foreign body seen. [facility] Reginald Liz MD - 11/02/2023 [...] Electronically Signed Date/Time: 11/02/2023 9:35 AM EST [facility] Radiology Study observation (narrative) [facility] alth XR Hand - right 3 ViewsOrder ed By: Reginald Liz on 11-02-2023 [facility] XR Tibia and Fibula - left 2 Viewson 11-02-2023 Negative plain film examination of the left tibia and fibula. Report Dictated on Electronically Signed By: Reginald Liz MD Electronically Signed Date/Time: 11/02/2023 9:32 AM [facility] Patient Name: PENNIE KOENIG : [...] tissue swelling or radiopaque foreign body seen. [facility] Reginald Liz MD - 11/02/2023 Patient [...] MD Electronically Signed Date/Time: 11/02/2023 9:32 AM [facility] Radiology Study observation (narrative) [facility] alth hCG, quantitative, on 11-02-2023 HCG.beta subunit Qn Females <=5 mIU/mL [facility] Values in should double every 2 to [...] or monitor tumors or gestational trophoblastic disease. [facility] Absolute lymphocyte countOrd ered By: Jany Norton on 06-20-2023 Lymphocytes Auto (Unsp spec) [#/Vol] 0.84 10*3/uL 0.83-4.51 [facility] Basophil percentageOrdered B y: Jany Norton on 06-20-2023 Basophils/100 WBC (Bld) 0.4 % 0-1 [facility] Chloride [Moles/Vol] 105 mmol/L 98-107 [facility] Eosinophils/100 WBC (Bld) 0.7 % 0-5 [facility] Glucose [Mass/Vol] 100 mg/dL 74-106 [facility] Comment on above: Fasting Glucose resu lt from 100 to 125 mg/dL suggests IMPAIRED HOMEOSTASIS per A.D.A. criteria. Neutrophils (Bld) [#/Vol] 7.1 10*3/uL 2.0-7.7 [facility] Neutrophils/100 WBC (Bld) 83.7 % 47-70 [facility] Potassium [Moles/Vol] 3.9 mmol/L 3.5-5.1 [facility] Sodium [Moles/Vol] 135 mmol/L 136-145 [facility] WBC (Bld) [#/Vol] 8.4 10*3/uL 4.4-11.0 [facility] Beta hCG serum qualOrdered B y: Jany Norton on 06-20-2023 Beta HCG ( test) Ql Negative [facility] Blood erythrocytes count (nu mber/volume)Ordered By: Jany Norton on 06-20-2023 RBC (Bld) [#/Vol] 4.40 10*6/uL 4.2-5.4 [facility] Blood hemoglobin measurement (mass/volume)Ordered By: Jany Norton on 06-20-2023 Hemoglobin (Bld) [Mass/Vol] 13.3 g/dL 12.0-15.0 [facility] Blood lymphocytes/100 leukoc ytesOrdered By: Jany Norton on 06-20-2023 Lymphocytes/100 WBC (Bld) 10.0 % 19-41 [facility] Blood monocytes/100 leukocyt esOrdered By: Jany Norton on 06-20-2023 Monocytes/100 WBC (Bld) 5.0 % 0-10 [facility] Blood platelet mean volumeOr dered By: Jany Norton on 06-20-2023 Platelet mean volume (Bld) [Entitic vol] 10.5 fL 6.2-12.0 [facility] Determination of erythrocyte mean corpuscular volume (MCV)Ordered By: Jany Norton on 06-20-2023 MCV (RBC) [Entitic vol] 90.2 fL 81-99 [facility] Hematocrit Auto (Bld) [Volum e fraction]Ordered By: Jany Norton on 06-20-2023 Hematocrit (Bld) [Volume fraction] 39.7 % 37-47 [facility] - Chemistry and C hemistry - challengeOrdered By: Jany Norton on 06-20-2023 CO2 [Moles/Vol] 27.0 mmol/L 21.0-32.0 [facility] Urea nitrogen/Creatinine [Mass ratio] 15.3 mg/mg 10-20 [facility] - Hematology and Cell countsOrdered By: Jany Norton on 06-20-2023 Erythrocyte distribution width (RBC) [Entitic vol] 38.6 fL 35.1-43.9 [facility] Erythrocyte distribution width (RBC) [Ratio] 11.7 % 11.6-14.6 [facility] Immature granulocytes/100 WBC (Bld) 0.200 % 0.0-0.9 [facility] Comment on above: IG% - Immature Granu locytes (promyelocytes, myelocytes and metamyelocytes) > 1% indicates that a LEFT SHIFT is Present. MCH (RBC) [Entitic mass] 30.2 pg 27.0-32.0 [facility] Nucleated RBC/100 WBC (Bld) [Ratio] 0 % 0-5 [facility] MCHC Auto (RBC) [Mass/Vol]Or dered By: Jany Norton on 06-20-2023 MCHC (RBC) [Mass/Vol] 33.5 g/dL 32-36 [facility] No Panel InformationOrdered By: Jany Norton on 06-20-2023 Estimated Creatinine Clearance Calc 117.35 ml/min [facility] Estimated GFR (MDRD) Amer 124 mL/min >60 [facility] Comment on above: GFR Calc Estimated GFR (MDRD) Non-Af Amer 102 mL/min >60 [facility] Comment on above: Non- GFR Calc Platelets bldOrdered By: Kriss Norton on 06-20-2023 Platelets (Bld) [#/Vol] 269 10*3/uL 150-450 [facility] Serum or plasma calcium eliezer urement (mass/volume)Ordered By: Jany Norton on 06-20-2023 Calcium [Mass/Vol] 8.7 mg/dL 8.5-10.1 [facility] Serum or plasma creatinine m easurement (mass/volume)Ordered By: Jany Norton on 06-20-2023 Creatinine [Mass/Vol] 0.72 mg/dL 0.55-1.02 [facility] Comment on above: The validity of the calculated GFR & GFRAA in patients over 70 years has not been determined. Clinical correlation is essential. Serum or plasma urea nitroge n measurement (mass/volume)Ordered By: Jany Norton on 06-20-2023 Urea nitrogen [Mass/Vol] 11 mg/dL 7-18 [facility] Thin prep Papanicolaou smear with manual screeningOrdered By: Jany Norton on 06-20-2023 Thin prep Papanicolaou smear with manual screening 3 5-15 [facility] UA DIP, URINE (POC)on 2022 BILIRUBIN UA (POCT) Negative Negative [facility] CLARITY UA (POCT) Clear [facility] COLOR UA (POCT) Yellow [facility] GLUCOSE UA (POCT) Negative Negative mg/dL [facility] Hemoglobin Ql (U) Trace-intact Abnormal Negative [facility] KETONE UA (POCT) Trace Negative mg/dL [facility] LEUKOCYTES UA (POCT) Small Abnormal [facility] NITRITE UA (POCT) Negative Negative [facility] PH UA (POCT) 6.0 4.5 - 8.0 [facility] Protein Ql (U) 30 mg/dL Abnormal Negative mg/dL [facility] SPECIFIC GRAVITY UA (POCT) >=1.030 1.005 - 1.030 [facility] UROBILINOGEN UA (POCT) 0.2 E.U./dL Little l E.U./dL [facility] Chlamydia trachomatis rRNA d etection by probe and target amplification methodOrdered By: Josi Nunn on 05-03-2023 C. trachomatis rRNA JANNIE+probe Ql (Unsp spec) Negative Negative [facility] Gram stain for investigation of transfusion reactionOrdered By: Josi Nunn on 05-03-2023 Microscopic observation Gram stain Nom (Unsp spec) [facility] - Microbiology an d Antimicrobial susceptibilityOrdered By: Josi Nunn on 05-03-2023 N. gonorrhoeae DNA JANNIE+probe Ql (Unsp spec) Negative Negative [facility] Comment on above: Performed at: =[address] [id number] Director: Vianey Giles MD, Phone: [phone] No Panel Informationon 05-03 POC Bacterial Vaginitis (Rapid) Positive [facility] Thin prep Papanicolaou smear with manual screeningOrdered By: Josi Nunn on 05-03-2023 Genital Culture G. vaginalis (Presumptive) [facility] Genital Culture Presumptive C albicans [facility] UA DIP, URINE (POC)on 2022 BILIRUBIN UA (POCT) Negative Negative [facility] CLARITY UA (POCT) Cloudy [facility] COLOR UA (POCT) Leslie [facility] GLUCOSE UA (POCT) Negative Negative mg/dL [facility] HEMOGLOBIN/BLOOD UA (POCT) Negative Negative [facility] KETONE UA (POCT) Trace Negative mg/dL [facility] LEUKOCYTES UA (POCT) Small Abnormal Negative [facility] NITRITE UA (POCT) Positive Abnormal Negative [facility] PH UA (POCT) 6.5 4.5 - 8.0 [facility] Protein Ql (U) Negative Negative mg/dL [facility] SPECIFIC GRAVITY UA (POCT) 1.020 1.005 - 1.030 [facility] UROBILINOGEN UA (POCT) 0.2 E.U./dL Little l E.U./dL [facility] STREP A MOLECULAR (POC)on Procedural Control Valid [facility] Strep A (POCT) Positive Abnormal Negative [facility] Chlamydia trachomatis rRNA d etection by probe and target amplification methodon 09-14-2022 C. trachomatis rRNA JANNIE+probe Ql (Unsp spec) Negative Negative [facility] Work Phone: Laboratory - Chemistry and C hemistry - challengeon 09-14-2022 Bilirubin Ql (U) Negative [facility] Work Phone: Glucose Ql (U) Negative [facility] Work Phone: Ketones Ql (U) Small (15+) [facility] Work Phone: pH (U) 5.0 [pH] [facility] Work Phone: Urobilinogen (U) [Mass/Vol] Negative [facility] Work Phone: Laboratory - Hematology and Cell countson 09-14-2022 Hemoglobin Ql (U) Moderate [facility] Work Phone: Laboratory - Microbiology an d Antimicrobial susceptibilityon 09-14-2022 N. gonorrhoeae DNA JANNIE+probe Ql (Unsp spec) Negative Negative [facility] Work Phone: Comment on above: Performed at: =[facility] [address], [place] [id number] Director: Vianey Giles MD, Phone: [phone] Laboratory - Specimen inform ationon 09-14-2022 Clarity (U) Cloudy [facility] Work Phone: Color (U) YELLOW [facility] Work Phone: Laboratory - Urinalysison Nitrite Ql (U) Negative [facility] Work Phone: Protein Ql (U) Negative [facility] Work Phone: No Panel Informationon 09-14 POC Trichomonas (Rapid) Negative [facility] Work Phone: Urine Leukocytes Positive [facility] Work Phone: Urine Non-Hemolyzed Blood [facility] Work Phone: UA DIP, URINE (POC)on 2021 BILIRUBIN UA (POCT) Negative Negative [facility] CLARITY UA (POCT) Clear [facility] COLOR UA (POCT) Dark yellow [facility] GLUCOSE UA (POCT) Negative Negative mg/dL [facility] HEMOGLOBIN/BLOOD UA (POCT) Trace-intact Abnormal Negative [facility] KETONE UA (POCT) Negative Negative mg/dL [facility] LEUKOCYTES UA (POCT) Negative Negative [facility] NITRITE UA (POCT) Positive Abnormal Negative [facility] PH UA (POCT) 7.0 4.5 - 8.0 [facility] Protein Ql (U) Trace Abnormal Negative mg/dL [facility] SPECIFIC GRAVITY UA (POCT) 1.020 1.005 - 1.030 [facility] UROBILINOGEN UA (POCT) 0.2 E.U./dL Little l E.U./dL [facility] HIV 1 and HIV-2 antibody ass ay with HIV-1 p24 antigen detectionon 07-20-2022 HIV 1+2 Ab+HIV1 p24 Ag IA Ql Non-Reactive Nonreactive [facility] Work Phone: Laboratory - Chemistry and C hemistry - challengeon 07-20-2022 Free T4 [Mass/Vol] 0.91 ng/dL 0.76-1.46 [facility] Work Phone: T4 [Mass/Vol] 7.6 ug/dL 4.8-13.9 [facility] Work Phone: No Panel Informationon 07-20 Hepatitis C Antibody Non-Reactive Nonreactive [facility] Work Phone: Comment on above: Non Reactive: < 0.8 Equivocal: >/= 0.8 to < 1.0 Reactive: >/= 1.0The [facility] recommends that a reactive/equivocal HCV antibody result be followed up by the HCV Nucleic Acid Amplificationtest ([id number]) Herpes Simplex Virus I IgG Antibody < 0.91 index 0.00-0.90 [facility] Work Phone: Comment on above: Negative <0.91 Equiv ocal 0.91 - 1.09 Positive >1.09 Note: Negative indicates no antibodies detected to HSV-1. Equivocal may suggest early infection. If clinically appropriate, retest at later date. Positive indicates antibodies detected to HSV-1. Thyroid Stimulating Hormone (TSH) 0.46 uIU/mL 0.358-3.74 [facility] Work Phone: Serum Treponema species anti body detectionon 07-20-2022 Treponema sp Ab Ql (S) Non-Reactive [facility] Work Phone: Serum herpes simplex virus 2 antibody assay by immunoassay (units/volume)on 07-20-2022 HSV 2 Ab IA Qn (S) 8.40 index 0.00-0.90 [facility] Work Phone: Comment on above: Negative <0.91 Equiv ocal 0.91 - 1.09 Positive >1.09 Note: Negative indicates no HSV-2 antibodies detected. Positive indicates HSV-2 antibodies detected. Equivocal and low positive HSV-2 screens (Index 0.91-5.00) may be false positive and are reflexed to supplemental testing in accordance with CDC guidelines.Performed at: [address] [id number] Director: Channing Martinez PhD, Phone: [phone] Laboratory - Chemistry and C hemistry - challengeon 06-22-2022 HCG ( test) Ql (U) Negative [facility] Work Phone: UA DIP, URINE (POC)on 2021 BILIRUBIN UA (POCT) Negative Negative [facility] CLARITY UA (POCT) Clear [facility] COLOR UA (POCT) Yellow [facility] GLUCOSE UA (POCT) Negative Negative mg/dL [facility] HEMOGLOBIN/BLOOD UA (POCT) Trace-intact Abnormal Negative [facility] KETONE UA (POCT) Negative Negative mg/dL [facility] LEUKOCYTES UA (POCT) Negative Negative [facility] NITRITE UA (POCT) Negative Negative [facility] PH UA (POCT) 7.5 4.5 - 8.0 [facility] Protein Ql (U) Negative Negative mg/dL [facility] SPECIFIC GRAVITY UA (POCT) 1.020 1.005 - 1.030 [facility] UROBILINOGEN UA (POCT) 0.2 E.U./dL [place] E.U./dL [facility] Basophil percentageon 2021 C. trachomatis DNA JANNIE+probe Ql (Unsp spec) Negative Negative [facility] Work Phone: Laboratory - Chemistry and C hemistry - challengeon 06-05-2022 HCG ( test) Ql (U) Negative [facility] Work Phone: Neisseria gonorrhoeae detect ion by PCRon 06-05-2022 N. gonorrhoeae DNA JANNIE+probe Ql (Cervical mucus) Negative Negative [facility] Work Phone: No Panel Informationon 06-05 POC Trichomonas (Rapid) Negative [facility] Work Phone: Cervical or vagninal specime n microscopic examination by cytology stain (reported ason 05-09-2022 Cytology report Cyto stain Doc (Cvx/Vag) Comment . [facility] Work Phone: Comment on above: The Pap [...] rRNA JANNIE+probe Ql (Unsp spec) Negative Negative [facility] Work Phone: Laboratory - Cytologyon 04-15 Drug Safety Assistant Cyto stain Nom (Cvx/Vag) [ID] Comment . [facility] Work Phone: Comment on above: Tamika Macario, Field Support Engineer (ASCP) Laboratory - Microbiology an d Antimicrobial susceptibilityon 05-09-2022 N. gonorrhoeae DNA JANNIE+probe Ql (Unsp spec) Negative Negative [facility] Work Phone: Comment on above: Performed at: [facility] [address] [id number] Director: Vianey Giles MD, Phone: [phone] Laboratory - Miscellaneous t estson 05-09-2022 Service comment (Unsp spec) [Interp] Comment . [facility] Work Phone: Comment on above: This liquid based Th inPrep(R) pap test was screened withthe use of an image guided system. Service comment (Unsp spec) [Interp] . . [facility] Work Phone: No Panel Informationon 05-09 Human Papillomavirus Screen Comment . [facility] Work Phone: Comment on above: The HPV DNA reflex c keyanaeria were not met with this specimenresult therefore, no HPV testing was performed.Performed at: - [facility] [id number] Director: Vianey Giles MD, Phone: [phone] Pathology report final diagnosis Narrative Comment . [facility] Work Phone: Comment on above: NEGATIVE FOR INTRAEP ITHELIAL LESION OR MALIGNANCY.PREDOMINANCE OF COCCOBACILLI CONSISTENT WITH SHIFT IN VAGINAL ARMINDA ISPRESENT. POC Bacterial Vaginitis (Rapid) Positive [facility] Work Phone: POC Trichomonas (Rapid) Negative [facility] Work Phone: Microbiology: Culture, Genit al Comprehensiveon 10-29-2017 GE use only - for LinkLogic import when terms are not otherwise specified . Invalid Interpretation Code [facility] Lab Report: CT/NG [facility] BY PCR on 10-25-2017 Chlamydia trachomatis DNA [Presence] in Urine by Probe and target amplification method Negative Invalid Interpretation Code Negative [facility] Neisseria gonorrhoeae presence Negative Invalid Interpretation Code Negative [facility] Office Visit: OB Routineon 1 10-20-2016 Documentation of current medications (procedure) Done Invalid Interpretation Code [facility] Tobacco smoking status NHIS Tobacco smoking status NHIS Invalid Interpretation Code [facility] Tobacco use CPHS Never smoker Invalid Interpretation Code [facility] Urine, glucose presence N Invalid Interpretation Code [facility] Urine, protein N Invalid Interpretation Code [facility] Office Visit: OB Routineon 1 Documentation of current medications (procedure) Done Invalid Interpretation Code [facility] Urine, glucose presence N Invalid Interpretation Code [facility] Urine, protein N Invalid Interpretation Code [facility] Microbiology: Culture, Group B Streptococcuson 08-10-2017 CUGRB ARISTIDES CultureGroup B Beta Streptococcus is not isolated. Invalid Interpretation Code [facility] Lab Report: Group B Strep DN A By PCRon 08-07-2017 GBS TEST RESULT Negative Invalid Interpretation Code Negative [facility] group B strep culture, vaginal Negative Invalid Interpretation Code Negative [facility] Office Visit: OB Routineon 1 Albumin Ql (U) N Invalid Interpretation Code [facility] Documentation of current medications (procedure) Done Invalid Interpretation Code [facility] Glucose Test strip mass conc (U) N Invalid Interpretation Code [facility] Protein mass conc Done Invalid Interpretation Code [facility] Urine, glucose presence N Invalid Interpretation Code [facility] Urine, protein N Invalid Interpretation Code [facility] Office Visit: OB Routineon 1 Albumin Ql (U) N Invalid Interpretation Code [facility] Glucose Test strip mass conc (U) N Invalid Interpretation Code [facility] Protein mass conc Done Invalid Interpretation Code [facility] Office Visit: OB Routineon 1 Albumin Ql (U) N Invalid Interpretation Code [facility] Glucose Test strip mass conc (U) N Invalid Interpretation Code [facility] Protein mass conc Done Invalid Interpretation Code [facility] Office Visit: OB Routineon 0 07-02-2017 Documentation of current medications (procedure) Done Invalid Interpretation Code [facility] Urine, glucose presence N Invalid Interpretation Code [facility] Urine, protein N Invalid Interpretation Code [facility] Blood Bank: Type AND Screeno n 06-27-2017 Antibody Screen Negative Normal [facility] GE use only - for LinkLogic import when terms are not otherwise specified Negative Normal [facility] Culture, urine Bacteria identified Cx Nom (U) Mixed Gram Pos & Gram Neg Org [facility] Work Phone: Gram stain for investigation of transfusion reaction Microscopic observation Gram stain Nom (Unsp spec) [facility] Work Phone: Thin prep Papanicolaou smear with manual screening Genital Culture GNR lactose head control clerk [facility] Work Phone: Genital Culture Streptococcus agalactiae (B) [facility] Work Phone: Genital Culture Streptococcus group B [facility] Work Phone: Vital Signs Date Time Vital Sign Value Performing Clinician Facility 05-27-2025 10:26-0400 Body height 172.[address] Lashawn Avila DO Work Phone: [facility] 05-27-2025 10:26-0400 Body mass index (BMI) [Ratio] 32.3 kg/m2 Dr. Lashawn Avila DO Work Phone: [facility] 05-27-2025 10:26-0400 Body weight 96.[address] Lashawn Avila DO Work Phone: [facility] 05-27-2025 10:26-0400 Diastolic blood pressure 73 mm[Hg] Dr. Lashawn Avila DO Work Phone: [facility] 05-27-2025 10:26-0400 Systolic blood pressure 113 mm[Hg] Dr. Lashawn Avila DO Work Phone: [facility] 02-12-2025 12:45-0400 Body temperature 99 [degF] Dr. Lashawn Avila DO Work Phone: [facility] 02-12-2025 12:45-0400 Diastolic blood pressure 75 mm[Hg] Dr. Lashawn Avila DO Work Phone: [facility] 02-12-2025 12:45-0400 Heart rate 80 /min Dr. Lashawn Avila DO Work Phone: [facility] 02-12-2025 12:45-0400 Respiratory rate 18 /min Dr. Lashawn Avila DO Work Phone: [facility] 02-12-2025 12:45-0400 SaO2% (BldA) [Mass fraction] 98 % Dr. Lashawn Avila DO Work Phone: [facility] 02-12-2025 12:45-0400 Systolic blood pressure 125 mm[Hg] Dr. Lashawn Avila DO Work Phone: [facility] 02-12-2025 10:15-0400 Body height 172.[address] Lashawn Avila DO Work Phone: [facility] 02-12-2025 10:15-0400 Body mass index (BMI) [Ratio] 34.4 kg/m2 Dr. Lashawn Avila DO Work Phone: [facility] 02-12-2025 10:15-0400 Body weight 102.[address] Lashawn Avila DO Work Phone: [facility] 01-01-2025 17:42-0400 Body temperature 98.4 [degF] Dr. Lashawn Avila DO Work Phone: [facility] 01-01-2025 17:42-0400 Diastolic blood pressure 84 mm[Hg] Dr. Lashawn Avila DO Work Phone: [facility] 01-01-2025 17:42-0400 Heart rate 72 /min Dr. Lashawn Avila DO Work Phone: [facility] 01-01-2025 17:42-0400 Respiratory rate 16 /min Dr. Lashawn Avila DO Work Phone: [facility] 01-01-2025 17:42-0400 SaO2% (BldA) [Mass fraction] 98 % Dr. Lashawn Avila DO Work Phone: [facility] 01-01-2025 17:42-0400 Systolic blood pressure 129 mm[Hg] Dr. Lashawn Avila DO Work Phone: [facility] 01-01-2025 17:07-0400 Body temperature 98.1 [degF] Dr. Lashawn Avila DO Work Phone: [facility] 01-01-2025 17:07-0400 Diastolic blood pressure 69 mm[Hg] Dr. Lashawn Avila DO Work Phone: [facility] 01-01-2025 17:07-0400 Heart rate 81 /min Dr. Lashawn Avila DO Work Phone: [facility] 01-01-2025 17:07-0400 Respiratory rate 16 /min Dr. Lashawn Avila DO Work Phone: [facility] 01-01-2025 17:07-0400 SaO2% (BldA) [Mass fraction] 98 % Dr. Lashawn Avila DO Work Phone: [facility] 01-01-2025 17:07-0400 Systolic blood pressure 137 mm[Hg] Dr. Lashawn Avila DO Work Phone: [facility] 01-01-2025 12:37-0400 Body height 172.[address] Lashawn Avila DO Work Phone: [facility] 01-01-2025 12:37-0400 Body mass index (BMI) [Ratio] 33.2 kg/m2 Dr. Lashawn Avila DO Work Phone: [facility] 01-01-2025 12:37-0400 Body weight [address] Lashawn Avila DO Work Phone: [facility] 12-31-2024 15:00-0400 Heart rate 60 /min Dr. Lashawn Avila DO Work Phone: [facility] 12-31-2024 15:00-0400 Respiratory rate 18 /min Dr. Lashawn Avila DO Work Phone: [facility] 12-31-2024 15:00-0400 SaO2% (BldA) [Mass fraction] 99 % Dr. Lashawn Avila DO Work Phone: [facility] 12-31-2024 11:01-0400 Body temperature 97.5 [degF] Dr. Lashawn Avila DO Work Phone: [facility] 12-31-2024 11:01-0400 Diastolic blood pressure 78 mm[Hg] Dr. Lashawn Avila DO Work Phone: [facility] 12-31-2024 11:01-0400 Systolic blood pressure 120 mm[Hg] Dr. Lashawn Avila DO Work Phone: [facility] 12-31-2024 10:59-0400 Body height 175.[address] Lashawn Avila DO Work Phone: [facility] 12-31-2024 10:59-0400 Body mass index (BMI) [Ratio] 32 kg/m2 Dr. Lashawn Avila DO Work Phone: [facility] 12-31-2024 10:59-0400 Body weight 98.[address] Lashawn Avila DO Work Phone: [facility] 10-17-2024 13:39-0500 Body temperature 98 [degF] Dr. Lashawn Avila DO Work Phone: [facility] 10-17-2024 13:39-0500 Diastolic blood pressure 65 mm[Hg] Dr. Lashawn Avila DO Work Phone: [facility] 10-17-2024 13:39-0500 Heart rate 52 /min Dr. Lashawn Avila DO Work Phone: [facility] 10-17-2024 13:39-0500 Respiratory rate 20 /min Dr. Lashawn Avila DO Work Phone: [facility] 10-17-2024 13:39-0500 SaO2% (BldA) [Mass fraction] 97 % Dr. Lashawn Avila DO Work Phone: [facility] 10-17-2024 13:39-0500 Systolic blood pressure 103 mm[Hg] Dr. Lashawn Avila DO Work Phone: [facility] 10-17-2024 08:42-0500 Body mass index (BMI) [Ratio] 32.7 kg/m2 Dr. Lashawn Avila DO Work Phone: [facility] 10-17-2024 08:42-0500 Body weight 100.[address] Lashawn Avlia DO Work Phone: [facility] 10-17-2024 08:40-0500 Body height 175.[address] Lashawn Avila DO Work Phone: [facility] 10-16-2024 16:25-0500 Body temperature 98 [degF] Dr. Lashawn Avila DO Work Phone: [facility] 10-16-2024 16:25-0500 Diastolic blood pressure 66 mm[Hg] Dr. Lashawn Avila DO Work Phone: [facility] 10-16-2024 16:25-0500 Heart rate 84 /min Dr. Lashawn Avila DO Work Phone: [facility] 10-16-2024 16:25-0500 Respiratory rate 16 /min Dr. Lashawn Avila DO Work Phone: [facility] 10-16-2024 16:25-0500 SaO2% (BldA) [Mass fraction] 97 % Dr. Lashawn Avila DO Work Phone: [facility] 10-16-2024 16:25-0500 Systolic blood pressure 127 mm[Hg] Dr. Lashawn Avila DO Work Phone: [facility] 10-16-2024 08:00-0500 Body mass index (BMI) [Ratio] 32.4 kg/m2 Dr. Lashawn Avila DO Work Phone: [facility] 10-16-2024 08:00-0500 Body weight 99.[address] Lashawn Avila DO Work Phone: [facility] 10-12-2024 01:33-0500 Diastolic Blood Pressure Non-Invasive 75 mm[Hg] DR SANDEE MILLER MD [facility] 10-12-2024 01:33-0500 Heart rate 70 /min DR SANDEE MILLER MD [facility] 10-12-2024 01:33-0500 Respiratory rate 18 /min DR SANDEE MILLER MD [facility] 10-12-2024 01:33-0500 Systolic Blood Pressure Non-Invasive 121 mm[Hg] DR SANDEE MILLER MD [facility] 10-11-2024 23:38-0500 Diastolic Blood Pressure Non-Invasive 65 mm[Hg] DR SANDEE MILLER MD [facility] 10-11-2024 23:38-0500 Heart rate 63 /min DR SANDEE MILLER MD [facility] 10-11-2024 23:38-0500 Reason For Taking VItal Signs DR SANDEE MILLER MD [facility] 10-11-2024 23:38-0500 Respiratory rate 16 /min DR SANDEE MILLER MD [facility] 10-11-2024 23:38-0500 Systolic Blood Pressure Non-Invasive 115 mm[Hg] DR SANDEE MILLER MD [facility] 10-11-2024 21:54-0500 Body temperature 98.24 [degF] DR SANDEE MILLER MD [facility] 10-11-2024 21:54-0500 Diastolic Blood Pressure Non-Invasive 54 mm[Hg] DR SANDEE MILLER MD [facility] 10-11-2024 21:54-0500 Heart rate 70 /min DR SANDEE MILLER MD [facility] 10-11-2024 21:54-0500 Respiratory rate 16 /min DR SANDEE MILLER MD [facility] 10-11-2024 21:54-0500 Systolic Blood Pressure Non-Invasive 119 mm[Hg] DR SANDEE MILLER MD [facility] 08-15-2024 17:26-0400 Diastolic Blood Pressure Non-Invasive 72 mm[Hg] LISA MARSH DO [facility] 08-15-2024 17:26-0400 Heart rate 72 /min LISA MARSH DO [facility] 08-15-2024 17:26-0400 Respiratory rate 20 /min LISA MARSH DO [facility] 08-15-2024 17:26-0400 Systolic Blood Pressure Non-Invasive 112 mm[Hg] LISA MARSH DO [facility] 08-15-2024 16:01-0400 Diastolic Blood Pressure Non-Invasive 56 mm[Hg] LISA MARSH DO [facility] 08-15-2024 16:01-0400 Heart rate 72 /min LISA MARSH DO [facility] 08-15-2024 16:01-0400 Respiratory rate 20 /min LISA MARSH DO [facility] 08-15-2024 16:01-0400 Systolic Blood Pressure Non-Invasive 107 mm[Hg] LISA MARSH DO [facility] 08-15-2024 14:02-0400 Body height 172.7 cm LISA MARSH DO [facility] 08-15-2024 14:02-0400 Body temperature 98.06 [degF] LISA MARSH DO [facility] 08-15-2024 14:02-0400 Body weight 97.7 kg LISA MARSH DO [facility] 08-15-2024 14:02-0400 Diastolic Blood Pressure Non-Invasive 71 mm[Hg] LISA MARSH DO [facility] 08-15-2024 14:02-0400 Heart rate 78 /min LISA MARSH DO [facility] 08-15-2024 14:02-0400 Respiratory rate 20 /min LISA MARSH DO [facility] 08-15-2024 14:02-0400 Systolic Blood Pressure Non-Invasive 124 mm[Hg] LISA MARSH DO [facility] 06-10-2024 17:22-0400 Diastolic Blood Pressure Non-Invasive 68 mm[Hg] HECTOR SCHUSTER MD [facility] 06-10-2024 17:22-0400 Heart rate 88 /min HECTOR SCHUSTER MD [facility] 06-10-2024 17:22-0400 Respiratory rate 16 /min HECTOR SCHUSTER MD [facility] 06-10-2024 17:22-0400 Systolic Blood Pressure Non-Invasive 116 mm[Hg] HECTOR SCHUSTER MD [facility] 06-10-2024 16:02-0400 Body height 172.7 cm HECTOR SCHUSTER MD [facility] 06-10-2024 16:02-0400 Body temperature 98.06 [degF] HECTOR SCHUSTER MD [facility] 06-10-2024 16:02-0400 Body weight 81.8 kg HECTOR SCHUSTER MD [facility] 06-10-2024 16:02-0400 Diastolic Blood Pressure Non-Invasive 74 mm[Hg] HECTOR SCHUSTER MD [facility] 06-10-2024 16:02-0400 Heart rate 96 /min HECTOR SCHUSTER MD [facility] 06-10-2024 16:02-0400 Respiratory rate 16 /min HECTOR SCHUSTER MD [facility] 06-10-2024 16:02-0400 Systolic Blood Pressure Non-Invasive 122 mm[Hg] HECTOR SCHUSTER MD [facility] 02-15-2024 17:30-0400 Body temperature 98.78 [degF] DR SANDEE MILLER MD [facility] 02-15-2024 16:19-0400 Body temperature 101.66 [degF] DR SANDEE MILLER MD [facility] 02-15-2024 16:19-0400 Body weight 80.[address] SANDEE MILLER MD [facility] 02-15-2024 16:19-0400 Diastolic Blood Pressure Non-Invasive 55 mm[Hg] DR SANDEE MILLER MD [facility] 02-15-2024 16:19-0400 Heart rate 99 /min DR SANDEE MILLER MD [facility] 02-15-2024 16:19-0400 Respiratory rate 18 /min DR SANDEE MILLER MD [facility] 02-15-2024 16:19-0400 Systolic Blood Pressure Non-Invasive 98 mm[Hg] DR SANDEE MILLER MD [facility] 01-03-2024 15:38-0400 Body height 172.[address] Lashawn Avila Work Phone: [facility] 01-03-2024 15:29-0400 Body mass index (BMI) [Ratio] 26.9 kg/m2 Dr. Lashawn Avila Work Phone: [facility] 01-03-2024 15:29-0400 Body weight 80.[address] Lashawn Avila Work Phone: [facility] 01-03-2024 15:29-0400 Diastolic blood pressure 80 mm[Hg] Dr. Lashawn Avila Work Phone: [facility] 01-03-2024 15:29-0400 Systolic blood pressure 128 mm[Hg] Dr. Lashawn Avila Work Phone: [facility] 11-26-2023 16:42-0500 Body temperature 98.1 [degF] Artemio [facility] VOCATIONAL ADVISER.AUTOMOTIVE TIRE TECHNICIAN Work Phone: [facility] 11-26-2023 16:42-0500 Body weight 80.2 kg Artemioirene [facility] VOCATIONAL ADVISER.AUTOMOTIVE TIRE TECHNICIAN Work Phone: [facility] 11-26-2023 16:42-0500 Diastolic blood pressure 76 mm[Hg] Artemio [facility] VOCATIONAL ADVISER.AUTOMOTIVE TIRE TECHNICIAN Work Phone: [facility] 11-26-2023 16:42-0500 Heart rate 72 /min Artem[facility] VOCATIONAL ADVISER.AUTOMOTIVE TIRE TECHNICIAN Work Phone: [facility] 11-26-2023 16:42-0500 Respiratory rate 21 /min Artemio [facility] VOCATIONAL ADVISER.AUTOMOTIVE TIRE TECHNICIAN Work Phone: [facility] 11-26-2023 16:42-0500 SaO2% (BldA) [Mass fraction] 98 % [facility] VOCATIONAL ADVISER.AUTOMOTIVE TIRE TECHNICIAN Work Phone: [facility] 11-26-2023 16:42-0500 Systolic blood pressure 102 mm[Hg] Artemioirene [facility] VOCATIONAL ADVISER.AUTOMOTIVE TIRE TECHNICIAN Work Phone: [facility] 11-02-2023 12:26-0500 Diastolic blood pressure 58 mm[Hg] Fitz Mudrakola DO Work Phone: [facility] [employer] 11-02-2023 12:26-0500 Heart rate 62 /min Fitz Mudrakola DO Work Phone: [facility] [employer] 11-02-2023 12:26-0500 Respiratory rate 12 /min Fitz Mudrakola DO Work Phone: [facility] 11-02-2023 12:26-0500 SaO2% (BldA) [Mass fraction] 97 % Fitz Mudrakola DO Work Phone: [facility] 11-02-2023 12:26-0500 Systolic blood pressure 100 mm[Hg] Fitz Barnes DO Work Phone: [facility] 11-02-2023 08:24-0500 Body temperature 98.49 [degF] Fitz Barnes DO Work Phone: [facility] 09-15-2023 10:43-0500 Body mass index (BMI) [Ratio] 25.8 kg/m2 Dr. Lashawn Avila Work Phone: [facility] 09-15-2023 10:43-0500 Body temperature 103.2 [degF] Dr. Lashawn Avila Work Phone: [facility] 09-15-2023 10:43-0500 Body weight 77.[address] Lashawn Avila Work Phone: [facility] 09-15-2023 10:43-0500 Diastolic blood pressure 78 mm[Hg] Dr. Lashawn Avila Work Phone: [facility] 09-15-2023 10:43-0500 Heart rate 88 /min Dr. Lashawn Avila Work Phone: [facility] 09-15-2023 10:43-0500 Respiratory rate 16 /min Dr. Lashawn Avila Work Phone: [facility] 09-15-2023 10:43-0500 SaO2% (BldA) [Mass fraction] 96 % Dr. Lashawn Avila Work Phone: [facility] 09-15-2023 10:43-0500 Systolic blood pressure 122 mm[Hg] Dr. Lashawn Avila Work Phone: [facility] 06-20-2023 12:20-0400 Body height 172.[address] Lashawn Avila Work Phone: [facility] 06-20-2023 12:20-0400 Body mass index (BMI) [Ratio] 26.9 kg/m2 Dr. Lashawn Avila Work Phone: [facility] 06-20-2023 12:20-0400 Body temperature 97 [degF] Dr. Lashawn Avila Work Phone: [facility] 06-20-2023 12:20-0400 Body weight 80.[address] Lashawn Avila Work Phone: [facility] 06-20-2023 12:20-0400 Diastolic blood pressure 88 mm[Hg] Dr. Lashawn Avila Work Phone: [facility] 06-20-2023 12:20-0400 Heart rate 60 /min Dr. Lashawn Avila Work Phone: [facility] 06-20-2023 12:20-0400 Respiratory rate 16 /min Dr. Lashawn Avila Work Phone: [facility] 06-20-2023 12:20-0400 SaO2% (BldA) [Mass fraction] 100 % Dr. Lashawn Avila Work Phone: [facility] 06-20-2023 12:20-0400 Systolic blood pressure 134 mm[Hg] Dr. Lashawn Avila Work Phone: [facility] 06-06-2023 08:50-0400 Body temperature 97.9 [degF] Haley Athy PA-C Work Phone: [facility] 06-06-2023 08:50-0400 Body weight 81.47 kg Haley Athy PA-C Work Phone: [facility] 06-06-2023 08:50-0400 Diastolic blood pressure 60 mm[Hg] Haley Athy PA-C Work Phone: [facility] 06-06-2023 08:50-0400 Heart rate 63 /min Haley Athy PA-C Work Phone: [facility] 06-06-2023 08:50-0400 Respiratory rate 21 /min Haley Athy PA-C Work Phone: [facility] 06-06-2023 08:50-0400 SaO2% (BldA) [Mass fraction] 98 % Haley PEDROZA-Jan Work Phone: [facility] 06-06-2023 08:50-0400 Systolic blood pressure 104 mm[Hg] Haley PEDROZA-Jan Work Phone: [facility] 05-03-2023 14:12-0400 Body mass index (BMI) [Ratio] 27 kg/m2 Dr. Lashawn Avila Work Phone: [facility] 05-03-2023 14:12-0400 Body weight 80.[address] Lashawn Avila Work Phone: [facility] 05-03-2023 14:12-0400 Diastolic blood pressure 56 mm[Hg] Dr. Lashawn Avila Work Phone: [facility] 05-03-2023 14:12-0400 Systolic blood pressure 98 mm[Hg] Dr. Lashawn Avila Work Phone: [facility] 01-22-2023 17:54-0400 Body temperature 97.59 [degF] Ducle Maradiaga APRN.AUTOMOTIVE TIRE TECHNICIAN Work Phone: [facility] 01-22-2023 17:54-0400 Body weight 82.74 kg Dulce Maradiaga APRN.AUTOMOTIVE TIRE TECHNICIAN Work Phone: [facility] 01-22-2023 17:54-0400 Diastolic blood pressure 72 mm[Hg] Dulce Maradiaga APRN.AUTOMOTIVE TIRE TECHNICIAN Work Phone: [facility] 01-22-2023 17:54-0400 Heart rate 61 /min Dulce Maradiaga APRN.AUTOMOTIVE TIRE TECHNICIAN Work Phone: [facility] 01-22-2023 17:54-0400 Respiratory rate 21 /min Dulce Maradiaga APRN.AUTOMOTIVE TIRE TECHNICIAN Work Phone: [facility] 01-22-2023 17:54-0400 SaO2% (BldA) [Mass fraction] 98 % Dulce Maradiaga APRN.AUTOMOTIVE TIRE TECHNICIAN Work Phone: [facility] 01-22-2023 17:54-0400 Systolic blood pressure 100 mm[Hg] Dulce Maradiaga APRN.CNP Work Phone: [facility] 11-07-2022 07:18-0500 Body temperature 98.78 [degF] RACHEL BURRIS MD [facility] 11-07-2022 07:18-0500 Diastolic Blood Pressure Non-Invasive 61 1 RACHEL BURRIS MD [facility] 11-07-2022 07:18-0500 Heart rate 89 /min RACHEL BURRIS MD [facility] 11-07-2022 07:18-0500 Respiratory rate 18 /min RACHEL BURRIS MD [facility] 11-07-2022 07:18-0500 Systolic Blood Pressure Non-Invasive 101 1 RACHEL BURRIS MD [facility] 10-24-2022 09:46-0500 Body temperature 98.1 [degF] Krislyn Aberegg PA Work Phone: [facility] 10-24-2022 09:46-0500 Body weight 78.29 kg Krislyn Aberegg PA Work Phone: [facility] 10-24-2022 09:46-0500 Diastolic blood pressure 74 mm[Hg] Krislyn Aberegg PA Work Phone: [facility] 10-24-2022 09:46-0500 Heart rate 95 /min Krislyn Aberegg PA Work Phone: [facility] 10-24-2022 09:46-0500 Respiratory rate 16 /min Krislyn Aberegg PA Work Phone: [facility] 10-24-2022 09:46-0500 SaO2% (BldA) [Mass fraction] 98 % Krislyn Aberegg PA Work Phone: [facility] 10-24-2022 09:46-0500 Systolic blood pressure 128 mm[Hg] Brayden Guerrero PA Work Phone: [facility] 09-14-2022 11:36-0500 Body height 172.[address] Lashawn Avila Work Phone: [facility] Work Phone: 09-14-2022 11:29-0500 Body mass index (BMI) [Ratio] 27.1 kg/m2 Dr. Lashawn Avila Work Phone: [facility] Work Phone: 09-14-2022 11:29-0500 Body weight 80.[address] Lashawn Avila Work Phone: [facility] Work Phone: 09-14-2022 11:29-0500 Diastolic blood pressure 59 mm[Hg] Dr. Lashawn Avila Work Phone: [facility] Work Phone: 09-14-2022 11:29-0500 Systolic blood pressure 92 mm[Hg] Dr. Lashawn Avila Work Phone: [facility] Work Phone: 08-10-2022 12:40-0400 Body temperature 98.8 [degF] Dulce Maradiaga APRN.AUTOMOTIVE TIRE TECHNICIAN Work Phone: [facility] 08-10-2022 12:40-0400 Body weight 80.2 kg Dulce Maradiaga APRN.AUTOMOTIVE TIRE TECHNICIAN Work Phone: [facility] 08-10-2022 12:40-0400 Diastolic blood pressure 74 mm[Hg] Dulce Maradiaga APRN.AUTOMOTIVE TIRE TECHNICIAN Work Phone: [facility] 08-10-2022 12:40-0400 Heart rate 78 /min Dulce Maradiaga APRN.AUTOMOTIVE TIRE TECHNICIAN Work Phone: [facility] 08-10-2022 12:40-0400 Respiratory rate 18 /min Dulce Maradiaga APRN.AUTOMOTIVE TIRE TECHNICIAN Work Phone: [facility] 08-10-2022 12:40-0400 SaO2% (BldA) [Mass fraction] 98 % Dulce Maradiaga APRN.AUTOMOTIVE TIRE TECHNICIAN Work Phone: [facility] 08-10-2022 12:40-0400 Systolic blood pressure 120 mm[Hg] Dulce Maradiaga APRN.AUTOMOTIVE TIRE TECHNICIAN Work Phone: [facility] 07-21-2022 12:28-0400 Body mass index (BMI) [Ratio] 26.6 kg/m2 Dr. Lashawn Avila Work Phone: [facility] Work Phone: 07-21-2022 12:28-0400 Body weight 79.[address] Lashawn Avila Work Phone: [facility] Work Phone: 07-21-2022 12:28-0400 Diastolic blood pressure 78 mm[Hg] Dr. Lashawn Avila Work Phone: [facility] Work Phone: 07-21-2022 12:28-0400 Systolic blood pressure 116 mm[Hg] Dr. Lashawn Avila Work Phone: [facility] Work Phone: 06-20-2022 09:38-0400 Body mass index (BMI) [Ratio] 27.1 kg/m2 Dr. Lashawn Avila Work Phone: [facility] Work Phone: 06-20-2022 09:38-0400 Body weight 80.[address] Lashawn Avila Work Phone: [facility] Work Phone: 06-20-2022 09:38-0400 Diastolic blood pressure 82 mm[Hg] Dr. Lashawn Avila Work Phone: [facility] Work Phone: 06-20-2022 09:38-0400 Systolic blood pressure 125 mm[Hg] Dr. Lashawn Avila Work Phone: [facility] Work Phone: 06-13-2022 13:38-0400 Body temperature 98.1 [degF] Keysha Bogner PA-C Work Phone: [facility] 06-13-2022 13:38-0400 Body weight 82.01 kg Keysha Bogner PA-C Work Phone: [facility] 06-13-2022 13:38-0400 Diastolic blood pressure 64 mm[Hg] Keysha Bogner PA-C Work Phone: [facility] 06-13-2022 13:38-0400 Heart rate 62 /min Keysha Bogner PA-C Work Phone: [facility] 06-13-2022 13:38-0400 Respiratory rate 18 /min Keysha Bogner PA-C Work Phone: [facility] 06-13-2022 13:38-0400 SaO2% (BldA) [Mass fraction] 98 % Keysha Bogner PA-C Work Phone: [facility] 06-13-2022 13:38-0400 Systolic blood pressure 128 mm[Hg] Keysha Bogner PA-C Work Phone: [facility] 06-05-2022 13:14-0400 Body height 172.[address] Lashawn Avila Work Phone: [facility] Work Phone: 06-05-2022 13:11-0400 Body mass index (BMI) [Ratio] 27.2 kg/m2 Dr. Lashawn Avila Work Phone: [facility] Work Phone: 06-05-2022 13:11-0400 Body weight 81.[address] Lashawn Avila Work Phone: [facility] Work Phone: 06-05-2022 13:11-0400 Diastolic blood pressure 60 mm[Hg] Dr. Lashawn Avila Work Phone: [facility] Work Phone: 06-05-2022 13:11-0400 Systolic blood pressure 106 mm[Hg] Dr. Lashawn Avila Work Phone: [facility] Work Phone: 05-09-2022 09:22-0400 Body height 172.[address] Lashawn Avila Work Phone: [facility] Work Phone: 05-09-2022 09:16-0400 Body mass index (BMI) [Ratio] 27.1 kg/m2 Dr. Lashawn Avila Work Phone: [facility] Work Phone: 05-09-2022 09:16-0400 Body weight 80.[address] Lashawn Avila Work Phone: [facility] Work Phone: 05-09-2022 09:16-0400 Diastolic blood pressure 70 mm[Hg] Dr. Lashawn Avila Work Phone: [facility] Work Phone: 05-09-2022 09:16-0400 Systolic blood pressure 110 mm[Hg] Dr. Lashawn Avila Work Phone: [facility] Work Phone: 05-07-2022 10:38-0400 Body temperature 98.6 [degF] LESLY CHARLTON DO [facility] 05-07-2022 10:38-0400 Diastolic blood pressure 77 mm[Hg] LESLY CHARLTON DO [facility] 05-07-2022 10:38-0400 Heart rate 60 /min LESLY CHARLTON DO [facility] 05-07-2022 10:38-0400 Respiratory rate 18 /min LESLY CHARLTON DO [facility] 05-07-2022 10:38-0400 Systolic blood pressure 118 mm[Hg] LESLY CHARLTON DO [facility] 04-16-2022 16:50-0400 Body temperature 98.6 [degF] DR SANDEE MILLER MD [facility] 04-16-2022 16:50-0400 Diastolic blood pressure 70 mm[Hg] DR SANDEE MILLER MD [facility] 04-16-2022 16:50-0400 Heart rate 71 /min DR SANDEE MILLER MD [facility] 04-16-2022 16:50-0400 Respiratory rate 18 /min DR SANDEE MILLER MD [facility] 04-16-2022 16:50-0400 Systolic blood pressure 121 mm[Hg] DR SANDEE MILLER MD [facility] 01-26-2022 09:37-0400 Body height 175.3 cm LONG MOSES MD [facility] 01-26-2022 09:37-0400 Body temperature 97.88 [degF] LONG MOSES MD [facility] 01-26-2022 09:37-0400 Body weight 86.4 kg LOGN MOSES MD [facility] 01-26-2022 09:37-0400 Diastolic blood pressure 66 mm[Hg] LONG MOSES MD [facility] 01-26-2022 09:37-0400 Heart rate 54 /min LONG MOSES MD [facility] 01-26-2022 09:37-0400 Respiratory rate 20 /min LONG MOSES MD [facility] 01-26-2022 09:37-0400 Systolic blood pressure 106 mm[Hg] LONG MOSES MD [facility] 04-03-2020 17:38-0400 BMI (Body Mass Index) 26.61 kg/m2 Grzegorz [facility], [place] 04-03-2020 17:38-0400 Body Temperature 97.59 [degF] Grzegorz Emilia [facility] , [place] 04-03-2020 17:38-0400 Body weight 79.38 [facility] [place] 04-03-2020 17:38-0400 BP Diastolic 68 mm[Hg] [facility] [place] 04-03-2020 17:38-0400 BP Systolic 118 mm[Hg] [facility] [place] 04-03-2020 17:38-0400 Height 172.7 cm [place] [facility] [place] 04-03-2020 17:38-0400 Pulse (Heart Rate) 63 /min [facility] [place] 04-03-2020 17:38-0400 Pulse Oximetry 100 % [facility] [place] 04-03-2020 17:38-0400 Respiratory Rate 16 /min [facility] [place] 11-18-2019 09:49-0500 BMI (Body Mass Index) 26.61 kg/m2 [facility] Work Phone: 11-18-2019 09:49-0500 Body Temperature 96.6 [degF] [employer] Work Phone: 11-18-2019 09:49-0500 Body weight 79.38 kg [employer] Work Phone: 11-18-2019 09:49-0500 BP Diastolic 70 mm[Hg] [employer] Work Phone: 11-18-2019 09:49-0500 BP Systolic 110 mm[Hg] [employer] Work Phone: 11-18-2019 09:49-0500 Pulse (Heart Rate) 70 /min [employer] Work Phone: 11-18-2019 09:49-0500 Pulse Oximetry 99 % [employer] Work Phone: 11-18-2019 09:49-0500 Respiratory Rate 16 /min [employer] Work Phone: 11-18-2019 09:48-0500 Height 172.7 cm [employer] Work Phone: 08-20-2017 15:40-0500 BMI (Body Mass Index) 30.07 kg/m2 Agustina Sinclair MD [facility] 08-20-2017 15:40-0500 Body Temperature 97.8 [degF] Agustina Sinclair MD [facility] 08-20-2017 15:40-0500 BP Diastolic 69 mm[Hg] Agustina Sinclair MD [facility] 08-20-2017 15:40-0500 BP Systolic 110 mm[Hg] Agustina Sinclair MD [facility] 08-20-2017 15:40-0500 Pulse (Heart Rate) 82 /min Agustina Sinclair MD [facility] 08-20-2017 15:40-0500 Respiratory Rate 16 /min Agustina Sinclair MD [facility] 08-20-2017 15:40-0500 Weight 89.72 kg Agustina Sinclair MD [facility] 08-14-2017 14:15-0400 BMI (Body Mass Index) 30.04 kg/m2 Agustina Sinclair MD [facility] 08-14-2017 14:15-0400 Body Temperature 98.8 [degF] Agustina Sinclair MD [facility] 08-14-2017 14:15-0400 BP Diastolic 72 mm[Hg] Agustina Sinclair MD [facility] 08-14-2017 14:15-0400 BP Systolic 112 mm[Hg] Agustina Sinclair MD [facility] 08-14-2017 14:15-0400 Pulse (Heart Rate) 86 /min Agustina Sinclair MD [facility] 08-14-2017 14:15-0400 Respiratory Rate 16 /min Agustina Sinclair MD [facility] 08-14-2017 14:15-0400 Weight 89.63 kg Agustina Sinclair MD [facility] 08-06-2017 15:32-0400 BMI (Body Mass Index) 29.8 kg/m2 Nathaly Wongs PATTERN CLERK [facility] 08-06-2017 15:32-0400 Body Temperature 97.8 [degF] Nathaly Crystal PATTERN CLERK [facility] 08-06-2017 15:32-0400 BP Diastolic 69 mm[Hg] Nathaly Shara PATTERN CLERK [facility] 08-06-2017 15:32-0400 BP Systolic 109 mm[Hg] Nathaly Shara PATTERN CLERK [facility] 08-06-2017 15:32-0400 Pulse (Heart Rate) 73 /min Nathaly Shara PATTERN CLERK [facility] 08-06-2017 15:32-0400 Respiratory Rate 16 /min Nathaly Crystal PATTERN CLERK [facility] 08-06-2017 15:32-0400 Weight 88.91 kg Nathaly Crystal PATTERN CLERK [facility] 07-30-2017 16:15-0400 BMI (Body Mass Index) 29.59 kg/m2 Agustina Sinclair MD [facility] 07-30-2017 16:15-0400 Body Temperature 97.4 [degF] Agustina Sinclair MD [facility] 07-30-2017 16:15-0400 BP Diastolic 66 mm[Hg] Agustina Sinclair MD [facility] 07-30-2017 16:15-0400 BP Systolic 123 mm[Hg] Agustina Sinclair MD [facility] 07-30-2017 16:15-0400 Pulse (Heart Rate) 90 /min Agustina Sinclair MD [facility] 07-30-2017 16:15-0400 Respiratory Rate 16 /min Agustina Sinclair MD [facility] 07-30-2017 16:15-0400 Weight 88.27 kg Agustina Sinclair MD [facility] 07-16-2017 15:50-0400 BMI (Body Mass Index) 28.92 kg/m2 Agustina Sinclair MD [facility] 07-16-2017 15:50-0400 Body Temperature 97.6 [degF] Agustina Sinclair MD [facility] 07-16-2017 15:50-0400 BP Diastolic 64 mm[Hg] Agustina Sinclair MD [facility] 07-16-2017 15:50-0400 BP Systolic 105 mm[Hg] Agustina Sinclair MD [facility] 07-16-2017 15:50-0400 Pulse (Heart Rate) 72 /min Agustina Sinclair MD [facility] 07-16-2017 15:50-0400 Respiratory Rate 16 /min Agustina Sinclair MD [facility] 07-16-2017 15:50-0400 Weight 86.27 kg Agustina Sinclair MD [facility] 07-02-2017 16:17-0400 BMI (Body Mass Index) 28.43 kg/m2 Agustina Sinclair MD [facility] 07-02-2017 16:17-0400 Body Temperature 97.3 [degF] Agustina Sinclair MD [facility] 07-02-2017 16:17-0400 BP Diastolic 72 mm[Hg] Agustina Sinclair MD [facility] 07-02-2017 16:17-0400 BP Systolic 108 mm[Hg] Agustina Sinclair MD [facility] 07-02-2017 16:17-0400 Height 172.72 cm Agustina Sinclair MD [facility] 07-02-2017 16:17-0400 Pulse (Heart Rate) 82 /min Agustina Sinclair MD [facility] 07-02-2017 16:170400 Respiratory Rate 16 /min Agustina Sinclair MD [facility] 07-02-2017 16:17-0400 Weight 84.82 kg Agustina Sinclair MD [facility] Encounters Encounter Date Encounter Type Care Provider Facility Start: 05-27-2025 End: 05-27-2025 Patient encounter procedure Nathaly Olmedo NP-Jan -[facility] Work Phone: Start: 05-27-2025 End: 05-27-[address] Lashawn Avila DO Work Phone: -[facility] Start: 05-27-2025 End: 05-27-2025 ambulatory Lashawn Avila Facility:[facility] Start: 05-20-2025 End: 05-20-2025 ambulatory LASHAWN Nickerson MARGARITA Facility:[facility] Start: 04-14-2025 End: 04-14-2025 Emergency department patient visit DR JOSE E MORALES DO [facility] Start: 04-14-2025 Non-patient / Non-visit Dr. Brittany pascual MD -[facility] Work Phone: Start: 03-11-2025 End: 03-11-[address] Lashawn Avila DO Work Phone: [facility] Work Phone: Start: 03-11-2025 End: 03-11-[address] Lashawn Avila DO -Laboratory Specimen Work Phone: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 A+Ox4. Pt denies any needs at this time. Norris Barbosa RN 11/02/23 1125 [id number] Emergency department Note* Ro Carrizales RN - 11/02/2023 8:26 AM EST Ccollar in place by ems Ro Carrizales RN 11/02/23 0827 [facility]01-19-2024 Emergency department Note* Char Metzger RN - 11/02/2023 8:21 AM EST Bed: 30 Expected date: Expected time: Means of arrival: Comments: ems Char Metzger RN 11/02/23 0821 [facility]01-19-2024 Physician Emergency department Note* Daiana Pink MD [...] 12:04:06 PM PATIENT REFERRED TO: Rosio Bailey [address] [facility] [address] Schedule an appointment as soon as [...] Medicine Provider Daiana Pink MD Resident 11/02/23 0567 [facility]01-19-2024 Physician Emergency department Note* Fitz Barnes DO [...] for clarification.) Fitz Barnes DO Acute Care [facility] Fitz Barnes DO 11/02/23 4958 [facility] [employer] Phone: [phone] Miscellaneous Notes* Telephone Encounter - Pam Mendenhall [...] follow-up with primary care. documented in this [facility]Kind[facility] History of Present illness Narrative* Haley Morrison PA-C - 06/06/2023 9:01 AM EDT This note was created using [employer] Radioriter. Subjective Pennie Koenig is a 28 year [...] follow- up with urology. Given referral to [facility] urology and also Dr. Brittany Rodriguez. Haley Morrison PA-C documented in this encounterKindred [facility]08-23-2023 Instructions* Patient Instructions* Haley Morrison PA-C - 06/06/2023 8:[address] Brittany Rodriguez documented in this encounterKind[facility]04-11-2023 Miscellaneous Notes* Telephone Encounter - Tamika Brito - 01/23/2023 12:56 PM EDT Patient given results and verbalized understanding of instructions given. Tamika Brito * Telephone Encounter - Dulce Maradiaga APRN.CNP - 01/23/2023 12:24 PM EDT Please call and tell patient she is negative for BV and if symptoms persist she should follow up with RESPIRATORY CARE TECHNICIAN. documented in this encounterKind[facility]04-10-[facility]23 History of Present illness Narrative* Dulce Maradiaga APRN.AUTOMOTIVE TIRE TECHNICIAN - 01/22/2023 5:58 PM EDT CC: Patient [...] her Celexa and she should call her RESPIRATORY CARE TECHNICIAN if they usually prescribe that for her. Prescription instructions reviewed with patient as applicable. Potential red flag symptoms discussed with the patient. Reviewed appropriate action plan to take if red flag symptoms occur. Patient agreeable to treatment plan. Dulce Maradiaga APRN.LULU documented in this encounterKind[facility]23 Hospital Discharge instructions Patient Education 11/07/2022 07:47:57 [...] up to date with of your vaccines. 2899-7932 [employer]. [address] [place] [address], [place] [address]. All rights reserved. This information is not intended as a substitute for professional medical care. Always follow yourhealthcare professional's instructions. Follow Up Care 11/07/2022 07:14:36 With:LASHAWN AVILA Address: [address] [place] [id number]- Business (1) When:5-7 days Comments:Schedule an appointment for follow-up if your symptoms or not improving.Push fluids, soft diet.Warmsalt water gargles, Chloraseptic spray and throat lozenges for symptomatic relief.Use Tylenol or Advil for pain and fever as needed.Use antibiotic (Z-Turner) as prescribed.Return to the ED if symptoms wo rsen. [facility] 01-24-2023 Note Discharge Instructions Thank you for allowing [facility] to assist you with your healthcare needs. [...] to the ED if symptoms worsen. Where: [place] [address] [facility] (1) Allergies amoxicillin (Rash) Medications Please ask [...] up to date with of your vaccines. 1822-8305 [employer]. [address] [place] [address], [place] [id number]. All rights reserved. This information is not intended as a substitute for professional medical care. Always follow yourhealthcare professional's instructions. Additional Information VACCINATE! IT SAVES LIVES! Members of the community who have not yet received the COVID-19 vaccine and would like to receive it can visit one of [facility] vaccine clinics. There are many vaccine clinic locations within the [facility]. For locations and available times, please visit [email or web address]. It is important to note that some COVID mobile vaccine clinics are held outdoors and may be canceled in rainy orstormy conditions. To learn more about pediatric vaccinations (ages 5-11), we invite you to visit the [facility] webpage. https://www.[facility].org/pages/2713-Yviyb-Snqleteowzo-Gaorxcddsq-Kxgiz-Fwm stions.htmlTo learn more about the COVID-19 vaccine, we invite you to visit the [facility] website for a list of frequently asked questions. [email or web address]-[email or web address]-Lbxmrzcs/zehle-[email or web address]-Lplyrhlhvt _Asked-Questions.pdf [facility] Patient Portal Access Instructions: Stay connected with your healthcare team and access your personal medical information anytime with the [facility] Patient Portal. If you would like a full copy of your medical records please contact the [facility] Medical Records Department Sunday through Sunday between 8a.m. and 4:30p.m. Please follow the directions below to access the portal: 1.Access the email account you provided upon registration to the hospital.2.Look for an invitation email from [facility].3.Open the email and access the invitation link: Accept Invitation to [facility]4.Fill in the required spence to create your account. Sign into [email or web address] with your username and password that you [...] you will allow to register on the [facility] Patient Portal for access to your information. You can also access the [facility] Patient Portal on the [employer] Simply click on Health Records under [employer] and then click on the [facility] logo. HOW TO SAFELY DISPOSE OF PRESCRIPTION [...] Call your local pharmacy or go to http://WORKING OUT WORKS.Rapt Media/9Q6Ap7c to find one close to you.3.Make use of household items: Use cat litter or old coffee grounds to dispose medications if other options arenot available. Mix your drugs with these household products, seal them in an airtight container andthrow it into the garbage. Call [facility]: [phone] to be sure your drugs can be [...] been reviewed and explained to me and I,MANUEL PENNIE Braulio understand my current condition and have read and understand these discharge instructions. I have received a written copy of the plan/instructions. If I have questions, I am aware that I should contact my doctor. Patient/After School Program Assistant Signature: Date/Time: Relationship to Patient: Witness Name/Signature: Date/Time: [facility]01-10-2023 History of Present illness Narrative * KASIA Rich - 10/24/2022 10:09 AM EST This note was created using NoteWriter. Subjective Pennie Koenig is a 27 year [...] ER evaluation. KASIA Rich documented in this encounterKind[facility]01-10-2023 Instructions* Patient Instructions* KASIA Rich - 10/24/2022 10:06 AM EST [facility] [address] [place] [address] Emergency Department Diagnosis: Assessment STREP INFECTIONS: Streptococcal [...] or inability to swallow. documented in this encounterKindred [facility]11-03-2022 Miscellaneous Notes* Telephone Encounter - Nazia Logan MA - 08/17/2022 3:33 PM EDT Pt was notified of the results. Pt verbalized understanding. Nazia Logan MA * Telephone Encounter - Tamika Brito - 08/15/2022 10:50 AM EDT Left message for patient to return call. Tamika Brito * Telephone Encounter - Debbie Peoples APRN.CNP [...] you had blood in your urine. [facility] [place] MyChart User Last Read On Pennie Koenig Not Read documented in this encounterKindred [facility]10-27-2022 History of Present illness Narrative* Dulce Maradiaga [...] of drug abuse (HCC) non-IV. inpatient treatment 2013 Migraine, unspecified, with intractable migraine, so stated, [...] plan. Dulce Maradiaga APRN.LULU documented in this encounterKindred [facility]09-01-2022 Miscellaneous Notes* Telephone Encounter - Rosa Turner [...] resolved. Alexandria Hu CNP documented in this encounterKindred [facility]08-31-2022 Miscellaneous Notes* Telephone Encounter - Alexandria Hu APRN.CNP - 06/14/2022 9:27 AM EDT I advised patient of the positive trichomonas test. Rx for Flagyl sent to her pharmacy. Alexandria Hu APRN.CNP documented in this encounterKindred [facility]08-30-2022 History of Present illness Narrative* Keysha Jones [...] bleeding the last 4 weeks- following with RESPIRATORY CARE TECHNICIAN. No bleeding today per patient. Denies fever/chills, abdominal pain, vaginal itching, abnormal vaginal itching. No chance of , patient has a tubal ligation. PAST MEDICAL HISTORY Diagnosis Date Abnormal Pap smear of cervix 2012 DR NIXON ADHD (attention deficit hyperactivity disorder) Chlamydia 2011 Depression Genital herpes History of drug abuse ([facility]) non-IV. inpatient treatment 2012 Migraine, [...] sooner. Keysha Jones PA-C documented in this encounterKindred [facility]ima07-26-2022 NotePap Smear Specimen AdequacyJuly 2021 12:21pmComment.Satisfactory for evaluation. Endocervical and/or squamous metaplasticcells (endocervical component)are present.[facility]ACED A#[id number] Work Phone: Comment on above:Satisfactory for evaluation. [...] get worse after the abrasion has healed 0630-0482 [employer]. [address] [place] [address]. All rights reserved. This information is not intended as a substitute for professional medical care. Always follow yourhealthcare professional's instructions. Follow Up Care 05/07/2022 10:33:32 With:LASHAWN AVILA DO Address: [address] [place] [address]- When:2-4 days [facility] 07-24-2022 Emergency department Discharge summary Discharge Instructions Thank you for allowing [facility] to assist you with your healthcare needs. The following is importantdischarge information regarding your hospital visit. Diagnosis from Today's Visit Corneal abrasion Pain in eye What to Do Next Instructions from Your Care Team No qualifying data available. Post Acute Orders No qualifying data available. You Need to Schedule the Following Appointments Follow Up with LASHAWN AVILA DO When Within 2-4 days Where: [address] [place] [address]- Allergies amoxicillin (Rash) Medications Please ask your [...] may report side effects to FDA at 6-614-WUM-6014. What other drugs will affect ketorolac ophthalmic? It is not likely that other drugs you take orally or inject will have an effect on ketorolac used in the eyes. But many drugs can interact with each other. Tell each of your healthcare providers about all medicines you use, including prescription and csqd-hhl-vcrgnbo medicines, vitamins, and herbalproducts. Where can I get more information? Your doctor or pharmacist can provide more information about ketorolac ophthalmic. Remember, keep this and all other medicines out of the reach of children, never share your medicines with others, and use this medication only for the indication prescribed. Every effort has been made to ensure that the information provided by [employer]. ('[employer]') is accurate, up-to-date, and complete, but no guarantee is made to that effect. Drug information contained herein may be time sensitive. [employer] information has been compiled for use by healthcare practitioners and consumers in the [place] and therefore [employer] does not warrant that uses outside of the [place] are appropriate, unless specifically indicated otherwise. [employer] drug information does not endorse drugs, diagnose patients or recommend therapy. [employer] drug information isan informational resource designed to [...] effective or appropriate for any given patient. [employer] does not assume any responsibility for any aspect of healthcare administered with the aid of information [employer] provides. The information contained herein is not intended to cover all possible uses, directions, precautions, warnings, drug interactions, allergic reactions, or adverse effects. If you have questions about the drugs you are taking, check with your doctor, nurse or pharmacist. Copyright 7719-9954 [employer]. Version: 8.01. Revision Date: 05/03/2016. polymyxin B [...] may report side effects to FDA at 1-837-NJH-2345. What other drugs will affect polymyxin B and trimethoprim ophthalmic? Medicine used in the eyes is not likely to be affected by other drugs you use. But many drugs can interact. Tell your doctor about all your current medicines, including prescription and zamw-wdp-gpfcyzn medicines, vitamins, and herbal products. Where can [...] to ensure that the information provided by [employer]. ('[employer]') is accurate, up-to-date, and complete, but no guarantee is made to that effect. Drug information contained herein may be time sensitive. [employer] information has been compiled for use by healthcare practitioners and consumers in the [place] and therefore [employer] does not warrant that uses outside of the [place] are appropriate, unless specifically indicated otherwise. [employer]'s drug information does not endorse drugs, diagnose patients or recommend therapy. [employer] drug information isan informational resource designed to [...] effective or appropriate for any given patient. [facility] does not assume any responsibility for any aspect of healthcare administered with the aid of information [facility] provides. The information contained herein is not intended to cover all possible uses, directions, precautions, warnings, drug interactions, allergic reactions, or adverse effects. If you have questions about the drugs you are taking, check with your doctor, nurse or pharmacist. Copyright 7264-6781 [employer]. Version: 5.01. Revision Date: 11/17/2021. Education Materials [...] get worse after the abrasion has healed 2048-2961 [employer]. [address] [place] [address]. All rights reserved. This information is not intended as a substitute for professional medical care. Always follow yourhealthcare professional's instructions. Additional Information VACCINATE! IT SAVES LIVES! Members of the community who have not yet received the COVID-19 vaccine and would like to receive it can visit one of [facility] vaccine clinics. There are many vaccine clinic locations within the [facility]. For locations and available times, please visit [email or web address]. It is important to note that some COVID mobile vaccine clinics are held outdoors and may be canceled in rainy orstormy conditions. To learn more about pediatric vaccinations (ages 5-11), we invite you to visit the [facility] webpage. https://www.[facility].org/pages/6339-Tflwu-Xxyuqtkuclm-Dzrszlpfue-Nkxni-Qdw stions.htmlTo learn more about the COVID-19 vaccine, we invite you to visit the [facility] website for a list of frequently asked questions. [email or web address]/assets/Rihajtzk-xjy-Cfrxkrnk/upmbz-Thiirhq-Uqnrowiohy _Asked-Questions.pdf [facility] Patient Portal Access Instructions: Stay connected with your healthcare team and access your personal medical information anytime with the [facility] Patient Portal. If you would like a full copy of your medical records please contact the [facility] Medical Records Department Sunday through Sunday between 8a.m. and 4:30p.m. Please follow the directions below to access the portal: 1.Access the email account you [facility].2.Look for an invitation email from [facility].3.Open the email and access the invitation link: Accept Invitation to [facility]4.Fill in the required spence to create your account. Sign into [email or web address] with your username and password that you [...] you will allow to register on the [facility] Patient Portal for access to your information. You can also access the [facility] Patient Portal on the [employer]. Simply click on Health Records under [employer]Data and then click on the [facility] logo. HOW TO SAFELY DISPOSE OF PRESCRIPTION [...] Call your local pharmacy or go to http://bit.ly/6Q4Ee9f to find one close to you.3.Make use of household items: Use cat litter or old coffee grounds to dispose medications if other options arenot available. Mix your drugs with these household products, seal them in an airtight container andthrow it into the garbage. Call [facility]: [phone] to be sure your drugs can be [...] been reviewed and explained to me and MANUEL Echeverria SARAH M understand my current condition and have read and understand these discharge instructions. I have received a written copy of the plan/instructions. If I have questions, I am aware that I should contact my doctor. Patient/After School Program Assistant Signature: Date/Time: Relationship to Patient: Witness Name/Signature: Date/Time: [facility] [id number] Hospital Discharge instructions Patient Education 04/16/2022 17:03:58 [...] provider. You feel weak, dizzy, or faint. [phone] [employer]. [address] [place] [address], [place] [address]. All rights reserved. This information is not intended as a substitute for professional medical care. Always follow yourhealthcare professional's instructions. Follow Up Care 04/16/2022 16:46:00 With:LASHAWN AVILA DO Address: [address] [place] [address] [id number] When:2-4 days [facility] Emergency department Discharge summary Discharge Instructions Thank you for allowing [facility] to assist you with your healthcare needs. [...] AVILA DO When Within 2-4 days Where: [address] [place] [address] [place] [address]- Allergies amoxicillin (Rash) Medications Please ask your [...] provider. You feel weak, dizzy, or faint. [phone] [employer]. [address] [place] [address]. All rights reserved. This information is not intended as a substitute for professional medical care. Always follow yourhealthcare professional's instructions. Additional Information VACCINATE! IT SAVES LIVES! Members of the community who have not yet received the COVID-19 vaccine and would like to receive it can visit one of [facility] vaccine clinics. There are many vaccine clinic locations within the [facility]. For locations and available times, please visit [email or web address]. It is important to note that some COVID mobile vaccine clinics are held outdoors and may be canceled in rainy orstormy conditions. To learn more about pediatric vaccinations (ages 5-11), we invite you to visit the [facility] webpage. [email or web address] learn more about the COVID-19 vaccine, we invite you to visit the [facility] website for a list of frequently asked questions. [email or web address] [facility] Patient Portal Access Instructions: Stay connected with your healthcare team and access your personal medical information anytime with the [facility] Patient Portal. If you would like a full copy of your medical records please contact the [facility] Medical Records Department [facility] through Sunday between 8a.m. and 4:30p.m. Please follow the directions below to access the portal: 1.Access the email account you provided upon registration to the hospital.2.Look for an invitation email from [facility].3.Open the email and access the invitation link: Accept Invitation to [facility].Fill in the required spence to create your account. Sign into [email or web address] with your username and password that you [...] you will allow to register on the [facility] Patient Portal for access to your information. You can also access the [facility] Patient Portal on the [employer] Simply click on Health Records under [employer] and then click on the [facility] logo. HOW TO SAFELY DISPOSE OF PRESCRIPTION [...] Call your local pharmacy or go to [email or web address] to find one close to you.3.Make use of household items: Use cat litter or old coffee grounds to dispose medications if other options arenot available. Mix your drugs with these household products, seal them in an airtight container andthrow it into the garbage. Call [facility]: [phone] to be sure your drugs can be [...] aware that I should contact my doctor. Patient/After School Program Assistant Signature: Date/Time: Relationship to Patient: Witness Name/Signature: Date/Time: [facility]04-14-2022 Hospital Discharge instructions Patient Education 01/26/2022 [...] night? Your flow may be heavier or cellophane bath mixer at night. You can wear a pad, tampon, or both. Don't forget to change your pad or tampon immediately when you wake up. Use whatever is most comfortable for you. [phone] [employer]. [address] [place] [address]. All rights reserved. This information is not [...] stop your medicine early. Talk to your systems support engineer regarding the use of this medicine in children. While this drug may be prescribed for selected conditions, precautions do apply. What side effects may I notice from receiving this medicine? Side effects that you should report to your doctor or health hospice care consultant as soon as possible: allergic reactions like [...] attention (report to your doctor or health hospice care consultant if they continue or are bothersome): diarrhea [...] this medicine? Tell your doctor or health hospice care consultant if your symptoms do not improve. Do [...] 2019 Elsevier Follow Up Care 01/26/2022 09:33:10 With:LASHANW AVILA DO Address: [address] [place] [id number]- When:2-4 days [facility] 02-15-2016 History of Past illness Narrative* Problem Noted Date Resolved Date Primary herpes simplex 11/29/2015 6 Overview: Primary outbreak at 22 weeks gestation confirmed by culture. 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 Also had sequential screen at [facility]. See scanned documents. Jany Temple DO Trichomonal [...] went into labor and was transferred to [facility] and delivered there at 30 weeks. The baby had Trisomy 18 and lived for 3 days. She did have genetic counseling at [facility]. She had a D&C for a miscarriage [...] of this encounter (statuses as of 06/13/2022) [facility] History of Past illness Narrative* Problem Noted Date Resolved Date Primary herpes simplex 11/29/2015 6 Overview: Primary outbreak at 22 weeks gestation confirmed by culture. 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 Also had sequential screen at [facility]. See scanned documents. Jany Temple DO Trichomonal [...] went into labor and was transferred to [facility] and delivered there at 30 weeks. The baby had Trisomy 18 and lived for 3 days. She did have genetic counseling at [facility]. She had a D&C for a miscarriage [...] of this encounter (statuses as of 06/14/2022) [place] [address]-15-2016 History of Past illness Narrative* Problem Noted Date Resolved Date Primary herpes simplex 11/29/2015 6 Overview: Primary outbreak at 22 weeks gestation confirmed by culture. 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 Also had sequential screen at [facility]. See scanned documents. Jany Temple DO Trichomonal [...] went into labor and was transferred to [facility] and delivered there at 30 weeks. The baby had Trisomy 18 and lived for 3 days. She did have genetic counseling at [facility]. She had a D&C for a miscarriage [...] of this encounter (statuses as of 06/15/2022) [facility] History of Past illness Narrative* Problem Noted Date Resolved Date Primary herpes simplex 11/29/2015 6 Overview: Primary outbreak at 22 weeks gestation confirmed by culture. 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 Also had sequential screen at [facility]. See scanned documents. Jany Temple DO Trichomonal [...] went into labor and was transferred to [facility] and delivered there at 30 weeks. The baby had Trisomy 18 and lived for 3 days. She did have genetic counseling at [facility]. She had a D&C for a miscarriage [...] of this encounter (statuses as of 08/10/2022) [facility] History of Past illness Narrative* Problem Noted Date Resolved Date Primary herpes simplex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 prosecute any alcohol or drug abuse patient.[facility] the event this information is protected by the Federal Confidentiality of Alcohol and Drug Abuse Patient Records regulations: The Federal rules restrict any use of the information to criminally investigate or prosecute any alcohol or drug abuse patient.[facility] the event this information is protected by the Federal Confidentiality of Alcohol and Drug Abuse Patient Records regulations: The Federal rules restrict any use of the information to criminally investigate or prosecute any alcohol or drug abuse patient.[facility] the event this information is protected by the Federal Confidentiality of Alcohol and Drug Abuse Patient Records regulations: The Federal rules restrict any use of the information to criminally investigate or prosecute any alcohol or drug abuse patient.[facility] the event this information is protected by the Federal Confidentiality of Alcohol and Drug Abuse Patient Records regulations: The Federal rules restrict any use of the information to criminally investigate or prosecute any alcohol or drug abuse patient.[facility] the event this information is protected by the Federal Confidentiality of Alcohol and Drug Abuse Patient Records regulations: The Federal rules restrict any use of the information to criminally investigate or prosecute any alcohol or drug abuse patient.[facility] Scheduled Active and Recently Administ ered Medications [...] section and content) DATE CREATED AUTHOR 11/08/2023 [employer] [facility] DATE CREATED AUTHOR AUTHOR'S ORGANIZ ATION 06/12/2024 [facility] ([place]) DATE CREATED AUTHOR AUTHOR'S ORGANIZ ATION 02/01/2025 [facility] DATE CREATED AUTHOR AUTHOR'S ORGANIZ ATION 04/24/2025 [facility] DATE CREATED AUTHOR AUTHOR'S ORGANIZ ATION 05/22/2025 [facility] DATE CREATED AUTHOR AUTHOR'S ORGANIZ ATION 06/06/2025 [facility] FOR RECORDS PERTAINING TO PATIENTS WHO ARE [...] BE BASED ON THE PRIMARY CLINICAL RECORDS. [employer] provides no warranty or guarantee of the accuracy or completeness of information in this document.
[2025-06-22] MEDS: DiphenhydrAMINE 50 MG/ML Syringe 25 MG IV (00:05)
[2025-06-22] MEDS: Ketorolac 30 MG/ML Syringe IV (00:05)
[2025-06-22] MEDS: 0.9% Normal Saline (1000mL) 1,000 ML 999 ML IV (00:05)
--- NOTE | 2025-06-22 00:14 | EDS_ITS ---
HPI History of Present Illness Chief Complaint: Abd Pain Informant: patient Narrative Narrative: Patient is a 30-year-old female with past medical history of anxiety depression and previous kidney stones. She states this afternoon/early evening she noticed some generalized abdominal cramping and pain with nausea. She states she felt she had to use the bathroom but she tried and there was no improvement of symptoms. She states has been no recent trauma she denies any dysuria or concern for . She states there is been no known sick contact. However the symptoms seem to be progressing as time passes and secondary to this she presents for evaluation. 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 , currently Genital herpes OCD (obsessive compulsive disorder) Anxiety Home Medications ?Medication ?Instructions ?Recorded ?Last Taken ?Type lorazepam 1 mg tablet 1 mg PO BID PRN PRN anxiety 10/14/24 Unknown History citalopram 40 mg tablet 40 mg PO DAILY 12/31/24 04/3 History ondansetron 8 mg disintegrating 8 mg PO Q8H PRN nausea and 01/01/25 Unknown Rx tablet vomiting #10 tabs bupropion HCl 300 mg 24 hr tablet, 300 mg PO DAILY 06/08 Unknown History extended release polyethylene glycol 3350 17 17 g PO DAILY 30 days #510 grams 06/22/25 Unknown Rx gram/dose oral powder (ClearLax) prochlorperazine maleate 10 mg 10 mg PO TID PRN nausea and 06/22/25 Unknown Rx tablet (Compazine) vomiting 7 days #21 tabs Allergy/AdvReac Type Severity Reaction Status Date / Time amoxicillin (Amoxicillin) Allergy Rash Verified 06/21/25 23:35 Penicillins Allergy Rash Verified 06/21/25 23:35 Surgical History Hx of cystoscopy H/O foot surgery H/O dilation and curettage Social History adopted: No household members: family housing: house number of children: 3 current occupational status: employed current occupation: [employer] pets and animals: Yes Smoking Status: Current every day smoker tobacco type: cigarettes second hand exposure: No alcohol intake: current details: social- not while substance use type: does not use seatbelt use: always do you feel safe at home: Yes additional social history: Spouse: Ashon- student ([employer]- 6, Wes-11) ROS ROS ED Constitutional Constitutional ED: Denies chills or fever(s) ENT ENT ED: Denies sore throat Cardiovascular Cardiovascular: Denies chest pain Respiratory/Chest Respiratory/Chest: Denies cough or dyspnea Gastrointestinal Gastrointestinal: Reports abdominal pain and nausea; Denies diarrhea or vomiting Genitourinary Genitourinary ED: Denies dysuria, hematuria or urinary frequency Musculoskeletal Musculoskeletal: Reports back pain Integumentary Denies rash Neurologic Neurologic: Denies headache(s) Hematologic/Lymphatic Hematologic/Lymphatic: Denies easy bleeding or easy bruising EXAM Physical Exam Const Vital Signs: 06/21/25 23:35 06/22/25 01:35 06/22/25 02:35 Temperature 98.7 F 98.7 F Temperature Source Oral Pulse Rate 68 50 L 56 L Respiratory Rate 18 14 16 Blood Pressure 120/70 90/61 101/56 L Blood Pressure Mean 86 70 71 Pulse Ox 99 99 99 Oxygen Delivery Method Room Air Positive well nourished and well developed General Appearance ED: well developed; Negative for pallor HEENT Reports moist mucous membranes HEENT Narrative: Normocephalic atraumatic No tongue or lip swelling no oral lesions no airway edema or compromise No secondary findings in the posterior pharynx to suggest infection Eyes PERRL and EOMs intact bilaterally General Eye ED: Negative for scleral icterus Neck supple Resp normal respiratory effort and clear to auscultation bilaterally Cardio regular rate and regular rhythm Rate: other Other Details: Heart is regular rate and rhythm without murmurs rubs or gallops Radial and carotid pulses are equal and symmetric GI non-distended and no masses GI Narrative: Abdomen is soft and nondistended with hypoactive bowel sounds There is mild diffuse pain on palpation greatest in the lower abdomen but no voluntary guarding or rigidity No pulsatile mass or fluid wave No increased tympany Auscultation: hypoactive bowel sounds Palpation: soft Back/Spine no CVA tenderness Extremity normal to inspection Neuro oriented x3, CN's II-XII intact bilaterally and no sensory deficits noted Sensorium / Orientation: alert Motor Exam: strength 5/5 throughout Psych mental status grossly normal Skin no rashes or lesions noted General Skin Exam: Negative for jaundice or pallor MDM MDM MDM Narrative Medical decision making narrative: Patient arrived to the ER with stable vitals and a soft nonsurgical abdomen. History and exam is concerning for constipation versus colitis versus viral stomach infection such as norovirus or rotavirus versus diverticulitis versus small bowel obstruction or gastric perforation. As history and exam is most consistent with constipation I elected perform basic laboratory studies and a acute abdominal series x-ray. Labs showed no clinically significant finding going against biliary colic/acute cholecystitis or acute pancreatitis. Urine sample did not show findings concerning for infection. There were +3 bacteria noted but large amount of contamination with skin cells and nitrite was negative and there was no white blood cells and she does not have dysuria going against a UTI. No blood was present going against kidney stone. X-ray showed changes consistent with constipation but no signs of obstruction or perforation. After receiving medication in the ER the patient had resolution of symptoms and on repeat evaluation her abdomen soft and nonsurgical. Therefore do not feel need for further intervention and she is otherwise safe for discharge History & Record Review Discussion w/independent historian: Patient Lab Data Attestation: I reviewed the patient's lab results. Labs: Laboratory Results - last 24 hr 06/21/25 06/22/25 23:56 01:14 WBC 10.8 RBC 4.26 Hgb 12.7 Hct 37.1 MCV 87.1 MCH 29.8 MCHC 34.2 RDW Std Deviation 38.2 RDW Coeff of Dilan 11.9 Plt Count 282 MPV 9.7 Immature Gran % (Auto) 0.300 Neut % (Auto) 75.9 H Lymph % (Auto) 16.4 L [place] % (Auto) 6.8 Eos % (Auto) 0.2 Baso % (Auto) 0.4 Absolute Neuts (auto) 8.2 H Absolute Lymphs (auto) 1.77 Nucleated RBC % 0 Sodium 136 Potassium 4.6 Chloride 104 Carbon Dioxide 22.7 Anion Gap 9 BUN 9 Creatinine 0.90 Estim Creat Clear Calc 116.01 Est GFR (MDRD) Non-Af 89 BUN/Creatinine Ratio 10.3 Glucose 100 H Calcium 8.9 Total Bilirubin 0.30 Direct Bilirubin 0.12 AST 20 ALT 19 Alkaline Phosphatase 100 Total Protein 7.5 Albumin 4.3 Globulin 3.2 Lipase 18 Serum , Qual NEGATIVE Urine Color Yellow Urine Clarity Sl. Cloudy Urine pH 7.0 Ur Specific [place] 1.010 Urine Protein 15 H Urine Glucose (UA) Normal Urine Ketones Negative Urine Occult Blood Negative Urine Nitrite Negative Urine Bilirubin Negative Urine Urobilinogen Normal Ur Leukocyte Esterase 25 H Urine RBC 0 SEEN Urine WBC 0-5 SEEN Ur Squamous Epith Cells 25-50 SEEN Urine Bacteria 3+ Urine Mucus 0 SEEN Radiography Diagnostic Testing: Clinical Impression(s) from Imaging Studies Acute Abdomen Series 06/21/25 00:25 IMPRESSION: Moderate amount of fecal residue in the large bowels. Reading Location: [place] [id number] Acute abdominal series with 1 view chest as interpreted by the emergency medicine physician reveals a nonspecific nonobstructive bowel gas pattern with large stool volume within the colon consistent with constipation. Chest x-ray component reveals no acute infiltrate or pneumothorax or pleural effusion Discharge Plan Triage Chief Complaint: Abd Pain ED Provider: Jeremy Lagos Dx/Rx/DC Orders Clinical Impression: Constipation, Nausea, Anxiety and depression Instructions: Treating Constipation, ED Constipation (Adult) Prescriptions: New prochlorperazine maleate [Compazine] 10 mg tablet 10 mg PO TID PRN (Reason: nausea and vomiting) 7 Days Qty: 21 0RF polyethylene glycol 3350 [ClearLax] 17 gram/dose powder 17 g PO DAILY 30 Days Qty: 510 0RF No Action lorazepam 1 mg tablet 1 mg PO BID PRN PRN (Reason: anxiety) bupropion HCl 300 mg tablet extended release 24 hr 300 mg PO DAILY citalopram 40 mg tablet 40 mg PO DAILY ondansetron 8 mg tablet,disintegrating 8 mg PO Q8H PRN (Reason: nausea and vomiting) Qty: 10 0RF Stand Alone Forms: ED Work / School Excuse Primary Care Provider: Blas Woodson Referrals: Blas Woodson DO [Primary Care Provider] - Activity Restrictions/Additional Instructions: Your workup today revealed no sign of bowel blockage or perforation. It did show changes consistent with constipation. Therefore take the MiraLAX daily as directed to help resolve this. As Zofran was not controlling your nausea you may take the Compazine if needed for improved nausea control. If you develop any worsening symptoms or have any further concern please return for repeat evaluation Print Language: Sinhala Disposition Disposition: Home, Self Care Discharge Date/Time: 06/22/25 02:39
[2025-06-22 00:21] LABS: Hematocrit 37.1 % (37-47); Hemoglobin 12.7 g/dL (12.0-15.0); Immature Granulocytes Count 0.030 X10^3/uL (0.0-0.0); Mean Corp Hgb Conc 34.2 g/dL (32-36); Mean Corpuscular Volume 87.1 fL (81-99); Mean Platelet Vol. 9.7 fl (6.2-12.0); NRBC Flagged by Analyzer 0 % (0-5); Platelet Count 282 K/mm3 (150-450); RBC Distribution Width CV 11.9 % (11.6-14.6); RBC Distribution Width SD 38.2 fl (35.1-43.9); Red Blood Count 4.26 M/mm3 (4.2-5.4); White Blood Count 10.8 K/mm3 (4.4-11.0)
[2025-06-22 00:30] LABS: Internal QC Validated? YES +Cl - CLEAR BKGD; Pregnancy, Serum, hCG Quali. NEGATIVE Negative; Record Kit Lot#, Serum Preg. 0000947241
[2025-06-22 01:10] LABS: AST(SGOT) 20 U/L (<=31); Alanine Aminotransfer ALT/SGPT 19 U/L (<=34); Albumin, Serum 4.3 g/dL (3.5-5.0); Alkaline Phosphatase 100 U/L (35-104); Anion Gap 9 (5-15); BUN 9 mg/dL (4-19); BUN/Creat Ratio 10.3 RATIO (10-20); Bilirubin, Direct 0.12 mg/dL (0.00-0.30); Calcium,Total 8.9 mg/dL (7.6-11.0); Carbon Dioxide 22.7 mmol/L (21.0-32.0); Chloride 104 mmol/L (98-108); Estimated Creatinine Clearance 116.01 ml/min (50-250); Globulin 3.2 g/dL (2.2-4.2); Glucose 100 mg/dL (70-99); Lipase 18 U/L (13-75); Potassium 4.6 mmol/L (3.3-5.1)
[2025-06-22 01:23] LABS: Mucous, Urine 0 SEEN /hpf (<or=2+); Red Blood Cells-Urine 0 SEEN /hpf (0-5)
[2025-06-22 01:24] LABS: Color, Urine Yellow (Yellow); Glucose, Dipstick Normal (Normal); Ketone-Dipstick Negative (Negative); Leukocyte Esterase-Dipstick 25 /ul (Negative); Nitrite-Dipstick Negative (Negative); Occult Blood-Urine Negative /ul (Negative); Protein-Dipstick 15 mg/dl (Negative); Specific Gravity, Urine 1.010 (1.002-1.030); Urine Bilirubin Dipstick Negative (Negative)
[2025-06-22 01:33] LABS: Squamous Epithelial Cells - UA 25-50 SEEN /hpf (5-10)
[2025-06-22 01:35] VITALS: BP 90/61; PULSE 50; RESP 14; O2SAT 99
[2025-06-22 02:35] VITALS: BP 101/56; PULSE 56; RESP 16; TEMP 37.1; O2SAT 99
== END 2025-06-22 02:39 | disposition home or self-care (01) ==
PROVIDERS: Emergency Provider Emergency Medicine; PCP Family Medicine; Visit Provider Emergency Medicine
DX: K59.00 Constipation, unspecified (principal); R11.0 Nausea; F17.210 Nicotine dependence, cigarettes, uncomplicated; F41.9 Anxiety disorder, unspecified; F32.A Depression, unspecified; Z79.899 Other long term (current) drug therapy
CPT/HCPCS: 74022; 80048; 80076; 81001; 83690; 84703; 85025; 96361; 96374; 96375; 99283; A4216

== ENCOUNTER → 2025-08-10 | Outpatient (CLI) | payer MEDICAID, SELFPAY ==
[2025-08-10 14:05] LABS: Barbiturate Urine NEGATIVE (< 200 ng/mL); Benzodiazepine Urine PRESUMPTIVE POSITIVE (< 200 ng/mL); PCP Urine NEGATIVE (< 25 ng/mL); THC Urine PRESUMPTIVE POSITIVE (< 50 ng/mL)
== END | disposition home or self-care (01) ==
LOC: LABSPEC 12:13
PROVIDERS: PCP Family Medicine; Referring Provider Family Medicine; Visit Provider Family Medicine
DX: R30.0 Dysuria (principal); Z79.899 Other long term (current) drug therapy
CPT/HCPCS: 80307; 87077; 87086; 87088; 87186